=== PATIENT | female | born 1935 | race Caucasian/White ===

== ENCOUNTER 2017-01-08 17:51 | Inpatient (IN) | payer MEDICARE ==
[~2017-01-08] VITALS: Ht 149.9 cm; Wt 57.2 kg
[2017-01-08 19:50] VITALS: BP 132/43
[2017-01-08] MEDS ORDERED: IV 1/2 NORMAL SALINE 1,000 ML IV SCH (21:03)
[2017-01-08] MEDS ORDERED: TRIA1CAP PO (21:12)
[2017-01-08] MEDS ORDERED: TRIA10.8 NS (21:12)
[2017-01-08] MEDS ORDERED: BYSTOLIC5 MG PO (21:12)
[2017-01-08] MEDS ORDERED: PROAIR HFA8.5 GM INH (21:12)
[2017-01-08] MEDS ORDERED: LEVO50TA5 PO (21:12)
[2017-01-08] MEDS ORDERED: CETI10TA22 PO (21:12)
[2017-01-08] MEDS ORDERED: TRAM50TA PO (21:12)
[2017-01-08] MEDS ORDERED: TRAM100T2 PO (21:12)
[2017-01-08] MEDS ORDERED: GUAI600T38 PO (21:12)
[2017-01-08] MEDS ORDERED: BISACODYL 10 MG SUPP.RECT. PR PRN (21:15)
[2017-01-08] MEDS ORDERED: PROCHLORPERAZINE 10 MG/2 ML VIAL. IV PRN (21:15)
[2017-01-08] MEDS ORDERED: PROCHLORPERAZINE 25 MG SUPP.RECT. PR PRN (21:15)
[2017-01-08] MEDS ORDERED: CALCIUM CARBONATE 500 MG TAB.CHEW PO PRN (21:15)
[2017-01-08] MEDS ORDERED: ACETAMINOPHEN 325 MG TABLET. PO PRN (21:15)
[2017-01-08] MEDS ORDERED: MAG HYDROX/ALUMINUM HYD/SIMETH 30 ML ORAL.SUSP PO PRN (21:15)
[2017-01-08] MEDS ORDERED: MAGNESIUM HYDROXIDE 2,400 MG/30 ML ORAL.SUSP. PO PRN (21:15)
[2017-01-08] MEDS ORDERED: ENOXAPARIN 30 MG/0.3 ML SYRINGE. SQ SCH (22:00)
[2017-01-08] MEDS ORDERED: ENOXAPARIN 40 MG/0.4 ML SYRINGE. SQ SCH (22:00)
[2017-01-08] MEDS: ONDANSETRON PF 4 MG/2 ML VIAL. IV PRN (22:19)
[2017-01-08] MEDS: DOCUSATE SODIUM 100 MG CAPSULE. PO SCH (22:19)
[2017-01-08] MEDS: MORPHINE SULFATE 2 MG/ML DISP.SYRIN. IV PRN (22:21)
[2017-01-08 22:52] LABS: BILIRUBIN,URINE SMALL (NEG); GLUCOSE,URINE NEGATIVE (NEG); NITRITE,URINE NEGATIVE (NEG); PROTEIN,URINE NEGATIVE (NEG-TRACE)
[2017-01-08 22:56] LABS: BACTERIA,URINE 0 /HPF (0-FEW); SQUAMOUS EPITHELIAL CELL,UR MOD /LPF
[2017-01-08 22:57] VITALS: BP 131/53
[2017-01-09] MEDS ORDERED: SODI15DR4 OU
[2017-01-09] MEDS ORDERED: [UNRECOGNIZED DRUG - CODE] OU
[2017-01-09] MEDS ORDERED: PRED1DRO OU
[2017-01-09] MEDS ORDERED: CARB15DR65 OU
[2017-01-09] MEDS: OXYCODONE IR 5 MG TABLET. PO PRN ×3 (00:47→20:54)
[2017-01-09 03:31] VITALS: BP 111/53
[2017-01-09] MEDS: MORPHINE SULFATE 2 MG/ML DISP.SYRIN. IV PRN ×2 (03:53→09:07)
[2017-01-09 05:35] LABS: BASO % 0 % (0-3); EOS % 0 % (0-3); HEMATOCRIT 42.1 % (36.0-47.0); HEMOGLOBIN 13.8 g/dL (12.0-15.5); LYMPH # 2.2 x10^3/uL (1.0-4.8); LYMPH % 23 % (24-48); MEAN CORPUSCULAR HEMOGLOBIN 29 pg (25-35); MEAN CORPUSCULAR HGB CONC 33 g/dL (31-37); MEAN CORPUSCULAR VOLUME 88 fL (79-100); MONO % 11 % (0-9); NEUT % 65 % (31-73); PLATELET COUNT 316 x10^3/uL (140-400); RED BLOOD COUNT 4.81 x10^6/uL (3.50-5.40); RED CELL DISTRIBUTION WIDTH 14.2 % (11.5-14.5); WHITE BLOOD COUNT 9.6 x10^3/uL (4.0-11.0)
[2017-01-09 05:50] LABS: INR 1.2 (0.8-1.1); PROTHROMBIN TIME PATIENT 14.4 SEC (11.7-14.0)
[2017-01-09 07:00] VITALS: BP 114/48
--- NOTE | 2017-01-09 08:42 | PDOC ---
SURGICAL PROGRESS NOTE Subjective 81 yo F with pancreatic mass TO OR in AM for en bloc resection, given it's obstructive nature of the colon R/B/A d/w pt Thanks for consult! [id number] Vital Signs Vital Signs Date Time Temp Pulse Resp B/P Pulse Ox O2 Delivery O2 Flow Rate FiO2 01/09/17 07:00 96.6 83 18 114/48 96 Room Air 96.6 I&O Intake and Output 01/09/17 07:00 Intake Total 0 ml Output Total 425 ml Balance -425 ml Intake Oral 0 ml Output Urine Total 425 ml # Voids 2 Labs Laboratory Tests Test 01/08/17 22:30 01/09/17 05:00 Urine Collection Type Unknown Urine Color Yellow Urine Clarity Clear Urine pH 6.0 Urine Specific [place] >=1.030 Urine Protein Negativemg/dL (NEG-TRACE) Urine Glucose (UA) Negativemg/dL (NEG) Urine Ketones (Stick) 40mg/dL (NEG) Urine Blood Trace (NEG) Urine Nitrite Negative (NEG) Urine Bilirubin Small (NEG) Urine Urobilinogen Dipstick 1.0mg/dL (0.2 mg/dL) Urine Leukocyte Esterase Negative (NEG) Urine RBC 6-10/HPF (0-2) Urine WBC 1-4/HPF (0-4) Urine Squamous Epithelial Cells Mod/LPF Urine Bacteria 0/HPF (0-FEW) Urine Mucus Slight/LPF White Blood Count 9.6x10^3/uL (4.0-11.0) Red Blood Count 4.81x10^6/uL (3.50-5.40) Hemoglobin 13.8g/dL (12.0-15.5) Hematocrit 42.1% (36.0-47.0) Mean Corpuscular Volume 88fL (79-100) Mean Corpuscular Hemoglobin 29pg (25-35) Mean Corpuscular Hemoglobin Concent 33g/dL (31-37) Red Cell Distribution Width 14.2% (11.5-14.5) Platelet Count 316x10^3/uL (140-400) Neutrophils (%) (Auto) 65% (31-73) Lymphocytes (%) (Auto) 23% (24-48) Monocytes (%) (Auto) 11% (0-9) Eosinophils (%) (Auto) 0% (0-3) Basophils (%) (Auto) 0% (0-3) Neutrophils # (Auto) 6.3x10^3uL (1.8-7.7) Lymphocytes # (Auto) 2.2x10^3/uL (1.0-4.8) Monocytes # (Auto) 1.1x10^3/uL (0.0-1.1) Eosinophils # (Auto) 0.0x10^3/uL (0.0-0.7) Basophils # (Auto) 0.0x10^3/uL (0.0-0.2) Prothrombin Time 14.4SEC (11.7-14.0) Prothromb Time International Ratio 1.2 (0.8-1.1) Laboratory Tests Test 01/08/17 22:30 01/09/17 05:00 Urine Collection Type Unknown Urine Color Yellow Urine Clarity Clear Urine pH 6.0 Urine Specific [place] >=1.030 Urine Protein Negativemg/dL (NEG-TRACE) Urine Glucose (UA) Negativemg/dL (NEG) Urine Ketones (Stick) 40mg/dL (NEG) Urine Blood Trace (NEG) Urine Nitrite Negative (NEG) Urine Bilirubin Small (NEG) Urine Urobilinogen Dipstick 1.0mg/dL (0.2 mg/dL) Urine Leukocyte Esterase Negative (NEG) Urine RBC 6-10/HPF (0-2) Urine WBC 1-4/HPF (0-4) Urine Squamous Epithelial Cells Mod/LPF Urine Bacteria 0/HPF (0-FEW) Urine Mucus Slight/LPF White Blood Count 9.6x10^3/uL (4.0-11.0) Red Blood Count 4.81x10^6/uL (3.50-5.40) Hemoglobin 13.8g/dL (12.0-15.5) Hematocrit 42.1% (36.0-47.0) Mean Corpuscular Volume 88fL (79-100) Mean Corpuscular Hemoglobin 29pg (25-35) Mean Corpuscular Hemoglobin Concent 33g/dL (31-37) Red Cell Distribution Width 14.2% (11.5-14.5) Platelet Count 316x10^3/uL (140-400) Neutrophils (%) (Auto) 65% (31-73) Lymphocytes (%) (Auto) 23% (24-48) Monocytes (%) (Auto) 11% (0-9) Eosinophils (%) (Auto) 0% (0-3) Basophils (%) (Auto) 0% (0-3) Neutrophils # (Auto) 6.3x10^3uL (1.8-7.7) Lymphocytes # (Auto) 2.2x10^3/uL (1.0-4.8) Monocytes # (Auto) 1.1x10^3/uL (0.0-1.1) Eosinophils # (Auto) 0.0x10^3/uL (0.0-0.7) Basophils # (Auto) 0.0x10^3/uL (0.0-0.2) Prothrombin Time 14.4SEC (11.7-14.0) Prothromb Time International Ratio 1.2 (0.8-1.1) Problem List Problems Medical Problems: (1) Pancreatic mass Status: Acute Problems: JOSÉ MIGUEL VALERO MD Jan 09, 2017 08:42
[2017-01-09] MEDS ORDERED: CEFOXITIN 2GM IVPB FOR OMNI 100 ML IV SCH (08:45)
--- NOTE | 2017-01-09 08:56 | PDOC2 ---
GI CONSULT Reason For Consult: Pancreatic mass HPI: HPI: 81 y/o female transferred from [facility]. Has been feeling ill for >1 week w/ LUQ/ epigastric pain (now also in BLQ) and n/v. CT A/P showed LUQ mass originating in the pancreatic tail invading the spleen, stomach, and splenic flexure of the colon w/ associated obstruction. Single hepatic lesion also noted, possible metastasis. At [facility], Alk Phos 108, ALT 19, AST 18, bili 0.6. Dr. Jenkins has seen ; surgical resection is planned for tomorrow a.m. She has been having small stools and is passing gas. Recalls previous colonoscopy years ago which was incomplete; had a barium enema afterwards which was reportedly normal. PMH: PMH: HTN, allergic rhinitis, hypothyroidism, DJD, cataract extraction, tonsillectomy , cardiac cath, appendectomy. cholecystectomy, tubal ligation, C section, thyroid nodule removal FH: Family History: No pertinent hx Social History: Smoke: Quit ALCOHOL: none Drugs: None ROS: GEN: Denies fevers, chills, sweats HEENT: Denies blurred vision, sore throat CV: Denies chest pain RESP: Denies shortness of air, cough GI: Per HPI : Denies hematuria, dysuria ENDO: Denies weight changes NEURO: Denies confusion, dizziness MSK: Denies weakness, joint pain/swelling SKIN: Denies jaundice, pruritus VItals: Vitals: Vital Signs Date Time Temp Pulse Resp B/P Pulse Ox O2 Delivery O2 Flow Rate FiO2 01/09/17 07:00 96.6 83 18 114/48 96 Room Air 96.6 Labs: Labs: Laboratory Tests Test 01/08/17 22:30 01/09/17 05:00 Urine Collection Type Unknown Urine Color Yellow Urine Clarity Clear Urine pH 6.0 Urine Specific [place] >=1.030 Urine Protein Negativemg/dL (NEG-TRACE) Urine Glucose (UA) Negativemg/dL (NEG) Urine Ketones (Stick) 40mg/dL (NEG) Urine Blood Trace (NEG) Urine Nitrite Negative (NEG) Urine Bilirubin Small (NEG) Urine Urobilinogen Dipstick 1.0mg/dL (0.2 mg/dL) Urine Leukocyte Esterase Negative (NEG) Urine RBC 6-10/HPF (0-2) Urine WBC 1-4/HPF (0-4) Urine Squamous Epithelial Cells Mod/LPF Urine Bacteria 0/HPF (0-FEW) Urine Mucus Slight/LPF White Blood Count 9.6x10^3/uL (4.0-11.0) Red Blood Count 4.81x10^6/uL (3.50-5.40) Hemoglobin 13.8g/dL (12.0-15.5) Hematocrit 42.1% (36.0-47.0) Mean Corpuscular Volume 88fL (79-100) Mean Corpuscular Hemoglobin 29pg (25-35) Mean Corpuscular Hemoglobin Concent 33g/dL (31-37) Red Cell Distribution Width 14.2% (11.5-14.5) Platelet Count 316x10^3/uL (140-400) Neutrophils (%) (Auto) 65% (31-73) Lymphocytes (%) (Auto) 23% (24-48) Monocytes (%) (Auto) 11% (0-9) Eosinophils (%) (Auto) 0% (0-3) Basophils (%) (Auto) 0% (0-3) Neutrophils # (Auto) 6.3x10^3uL (1.8-7.7) Lymphocytes # (Auto) 2.2x10^3/uL (1.0-4.8) Monocytes # (Auto) 1.1x10^3/uL (0.0-1.1) Eosinophils # (Auto) 0.0x10^3/uL (0.0-0.7) Basophils # (Auto) 0.0x10^3/uL (0.0-0.2) Prothrombin Time 14.4SEC (11.7-14.0) Prothromb Time International Ratio 1.2 (0.8-1.1) Allergies: Coded Allergies: Xrbdygm-Xzs-Hpz Reductase Inhibitor (Verified Allergy, Intermediate, ) albuterol (Verified Allergy, Intermediate, 01/08/17) aspirin (Verified Allergy, Intermediate, 01/08/17) diltiazem (Verified Allergy, Intermediate, 01/08/17) ether (Verified Allergy, Intermediate, 01/08/17) ezetimibe (Verified Allergy, Intermediate, 01/08/17) fluticasone (Verified Allergy, Intermediate, 01/08/17) furosemide (Verified Allergy, Intermediate, 01/08/17) ipratropium (Verified Allergy, Intermediate, 01/08/17) lidocaine (Verified Allergy, Intermediate, 01/08/17) naproxen (Verified Allergy, Intermediate, 01/08/17) raloxifene (Verified Allergy, Intermediate, 01/08/17) salmeterol (Verified Allergy, Intermediate, 01/08/17) tiotropium (Verified Allergy, Intermediate, 01/08/17) tramadol (Verified Allergy, Intermediate, 01/08/17) trandolapril (Verified Allergy, Intermediate, 01/08/17) verapamil (Verified Allergy, Intermediate, 01/08/17) Sulfa (Sulfonamide Antibiotics) (Verified Allergy, Unknown, 01/08/17) alendronate sodium (Verified Allergy, Unknown, 01/08/17) calcium (Verified Allergy, Unknown, 01/08/17) celecoxib (Verified Allergy, Unknown, 01/08/17) estradiol (Verified Allergy, Unknown, 01/08/17) estrogens, conjugated (Verified Allergy, Unknown, 01/08/17) niacin (Verified Allergy, Unknown, 01/08/17) Medications: Current Medications Medications (Trade) Dose Ordered Sig/Chente Route PRN Reason Start Time Stop Time Status Last Admin Dose Admin Sodium Chloride (Iv Sodium Chloride 0.45%) 1,000 ml @ 80 mls/hr [id number] IV 01/08/17 21:03 01/08/17 22:17 Ondansetron HCl (Zofran) 4 mg PRN Q6HRS PRN IV NAUSEA/VOMITING 01/08/17 21:15 01/08/17 22:19 Oxycodone HCl (Roxicodone) 5 mg PRN Q3HRS PRN PO BREAKTHROUGH PAIN 01/08/17 21:15 01/09/17 00:47 Morphine Sulfate 1 mg PRN Q2HR PRN IV PAIN 01/08/17 21:15 01/09/17 03:53 Docusate Sodium (Colace) 100 mg BID PO 01/08/17 22:00 01/08/17 22:19 Enoxaparin Sodium (Lovenox 30mg Syringe) 30 mg Q24H SQ 01/08/17 22:00 01/08/17 22:20 Imaging: Imaging: Reviewed from [facility] - per HPI. PE: GEN: NAD HEENT: Atraumatic, PERRL LUNGS: CTAB anteriorly HEART: RRR ABD: BS+, some LUQ/epigastric discomfort, probably some distention EXTREMITY: No edema SKIN: No rashes, no jaundice NEURO/PSYCH: A & O 3 A/P: A/P: Abd pain w/ n/v Pancreatic mass -CT: LUQ mass originating in the pancreatic tail invading the spleen, stomach, and splenic flexure of the colon w/ associated obstruction, also note hepatic lesion -[id number] pending -- Plan for resection w/ Dr. Jenkins tomorrow RED Anderson Jan 09, 2017 08:56
[2017-01-09] MEDS: DOCUSATE SODIUM 100 MG CAPSULE. PO SCH ×2 (09:07→20:54)
[2017-01-09] MEDS: ONDANSETRON PF 4 MG/2 ML VIAL. IV PRN ×2 (09:07→15:51)
[2017-01-09] MEDS: PANTOPRAZOLE IV PUSH 40 MG VIAL. IVP SCH (09:08)
--- NOTE | 2017-01-09 09:25 | PDOC1 ---
History and Physical Date of Admission Date of Admission DATE: 01/09/17 TIME: 09:14 Identification/Chief Complaint Chief Complaint abd pain, nausea Source Source: Chart review, Patient History of Present Illness History of Present Illness Ms. Lee, is a 81 y/o female transferred from [place] [facility] last night. She has felt ill recenly, abd bloating and discomfort for almost a week, had seen primary care 4 days before, and symptoms had worsened, to ER last night. New LUQ/epigastric pain She was transferred when CT A/P showed LUQ mass of pancreas, to colon w/ associated obstruction. I discussed with Dr. Jenkins, he has consulted Palliative and Onc to follow. Past Medical History Cardiovascular: HTN Pulmonary: Asthma Family History Family History: No Significant Social History Smoke: No ALCOHOL: none Drugs: None Current Problem List Problem List Problems Medical Problems: (1) Pancreatic mass Status: Acute Problems: Current Medications Current Medications Current Medications Sodium Chloride (Iv Sodium Chloride 0.45%) 1,000 ml @ 80 mls/hr [id number] IV Last administered on 01/08/17 22:17; Start 01/08/17 at 21:03 Ondansetron HCl (Zofran) 4 mg PRN Q6HRS PRN IV NAUSEA/VOMITING Last administered on 01/09/17 09:07; Start 01/08/17 at 21:15 Prochlorperazine Edisylate (Compazine) 10 mg PRN Q6HRS PRN IV NAUSEA/VOMITING; Start 01/08/17 at 21:15 Prochlorperazine (Compazine) 25 mg PRN Q12HR PRN ID NAUSEA/VOMITING; Start 01/08 at 21:15 Al Hydroxide/Mg Hydroxide (Mylanta Plus Xs) 30 ml PRN Q3HRS PRN PO HEARTBURN / GAS; Start 01/08/17 at 21:15 Calcium Carbonate/ Glycine (Tums) 500 mg PRN Q3HRS PRN PO UPSET STOMACH; Start 01/08/17 at 21:15; Stop 01/08/17 at 21:20; Status DC Oxycodone HCl (Roxicodone) 5 mg PRN Q3HRS PRN PO BREAKTHROUGH PAIN Last administered on 01/09/17 00:47; Start 01/08/17 at 21:15 Morphine Sulfate 1 mg PRN Q2HR PRN IV PAIN Last administered on 01/09/17 09:07 ; Start 01/08/17 at 21:15 Acetaminophen (Tylenol) 650 mg PRN Q6HRS PRN PO MILD PAIN / TEMP; Start at 21:15 Docusate Sodium (Colace) 100 mg BID PO Last administered on 01/09/17 09:07; Start 01/08/17 at 22:00 Magnesium Hydroxide (Milk Of Magnesia) 2,400 mg PRN Q12HR PRN PO CONSTIPATION; Start 01/08/17 at 21:15 Bisacodyl (Dulcolax Supp) 10 mg PRN DAILY PRN ID CONSTIPATION; Start 01/08/17 at 21:15 Enoxaparin Sodium (Lovenox 40mg Syringe) 40 mg Q24H SQ ; Start 01/08/17 at 22:00 ; Stop 01/08/17 at 22:00; Status DC Pantoprazole Sodium (Protonix Vial) 40 mg DAILYAC IVP Last administered on 09:08; Start 01/09/17 at 07:30 Enoxaparin Sodium 30 mg 30 mg Q24H SQ Last administered on 01/08/17 22:20; Start 01/08/17 at 22:00 Cefoxitin Sodium (Mefoxin 2gm Ivpb For Omni) 100 ml @ 200 mls/hr 1X PERIOP IV ; Start 01/09/17 at 08:45 Active Scripts Active Reported Pred Forte (Prednisolone Acetate) 1 Ml Drops.susp 1 Ml OU BID PRN Visine Allergy Relief Drop (Tetrahydrozoline Hcl/Zn Sulf) 15 Ml Drops 1 Drop OU PRN Thera Tears (Carboxymethylcellulose Sodium) 15 Ml Drops 1 Drop OU PRN Jaime-128 (Sodium Chloride) 15 Ml Drops 1 Drop OU PRN Tramadol Hcl 100 Mg Tbmp.24hr 100 Mg PO Q6H PRN Tramadol Hcl 50 Mg Tablet 50 Mg PO Q6H PRN Zyrtec (Cetirizine Hcl) 10 Mg Tablet 10 Mg PO DAILY Nasacort (Triamcinolone Acetonide) 10.8 Ml [place] 2 [place] NS DAILY Proair Hfa Inhaler (Albuterol Sulfate) 8.5 Gm Hfa.aer.ad 2 Puff INH QID Mucinex (Guaifenesin) 600 Mg Tablet.er 600 Mg PO Q8HRS PRN Levothyroxine Sodium 50 Mcg Tablet 50 Mcg PO DAILYAC Dyazide 37.5-25 Capsule (Triamterene/Hydrochlorothiazid) 1 Each Capsule 1 Cap PO DAILY Bystolic (Nebivolol) 5 Mg Tablet 5 Mg PO DAILY Allergies Allergies: Coded Allergies: Tnfckab-Zgw-Ses Reductase Inhibitor (Verified Allergy, Intermediate, ) albuterol (Verified Allergy, Intermediate, 01/08/17) aspirin (Verified Allergy, Intermediate, 01/08/17) diltiazem (Verified Allergy, Intermediate, 01/08/17) ether (Verified Allergy, Intermediate, 01/08/17) ezetimibe (Verified Allergy, Intermediate, 01/08/17) fluticasone (Verified Allergy, Intermediate, 01/08/17) furosemide (Verified Allergy, Intermediate, 01/08/17) ipratropium (Verified Allergy, Intermediate, 01/08/17) lidocaine (Verified Allergy, Intermediate, 01/08/17) naproxen (Verified Allergy, Intermediate, 01/08/17) raloxifene (Verified Allergy, Intermediate, 01/08/17) salmeterol (Verified Allergy, Intermediate, 01/08/17) tiotropium (Verified Allergy, Intermediate, 01/08/17) tramadol (Verified Allergy, Intermediate, 01/08/17) trandolapril (Verified Allergy, Intermediate, 01/08/17) verapamil (Verified Allergy, Intermediate, 01/08/17) Sulfa (Sulfonamide Antibiotics) (Verified Allergy, Unknown, 01/08/17) alendronate sodium (Verified Allergy, Unknown, 01/08/17) calcium (Verified Allergy, Unknown, 01/08/17) celecoxib (Verified Allergy, Unknown, 01/08/17) estradiol (Verified Allergy, Unknown, 01/08/17) estrogens, conjugated (Verified Allergy, Unknown, 01/08/17) niacin (Verified Allergy, Unknown, 01/08/17) ROS General: YES: Appetite, Fatigue, No: Chills, Malaise, Night Sweats, Other PSYCHOLOGICAL ROS: No: Anxiety, Behavioral Disorder, Concentration difficultie , Decreased libido, Depression, Disorientation, Hallucinations, Hostility, Irritablity, Memory difficulties, Mood Swings, Obsessive thoughts, Other, Physical abuse, Sexual abuse, Sleep disturbances, Suicidal ideation Eyes: No Blurry vision, No Decreased vision, No Double vision, No Dry eyes, No Excessive tearing, No Eye Pain, No Itchy Eyes, No Loss of vision, No Other, No Photophobia, No Scotomata, No Uses contacts, No Uses glasses HEENT: No: Epistaxis, Heacaches, Hearing change, Nasal congestion, Nasal discharge, Oral lesions, Other, Sinus pain, Sneezing, Snoring, Sore Throat, Tinnitus, Vertigo, Visual Changes, Vocal changes Respiratory: No: Cough, Hemoptysis, Orthopnea, Other, Pleuritic Pain, SOB with excertion, Shortness of breath, Sputum Changes, Stridor, Tachypnea, Wheezing Cardiovascular: No Chest Pain, No Edema, No Lt Headedness, No Orthopnea, No Other, No Palpitations, No Paroxysmal Noc. Dyspnea Gastrointestinal: Yes Abdominal Pain, Yes Nausea, Yes Other (nonspecifc change in stool, smaller caliber) Genitourinary: No , No , No , No , No , No , No , No Discharge, No Dysuria, No Flank Pain, No Frequency, No Hematuria, No Incontinence, No Other, No Pain, No Retention, No Urgency Musculoskeletal: No Gait Disturbance, No Joint Pain, No Joint Stiffness, No Joint Swelling, No Muscle Pain, No Muscular Weakness, No Other, No Pain In:, No Swelling In: Neurological: No Behavorial Changes, No Bowel/Bladder ControlChng, No Confusion , No Dizziness, No Gait Disturbance, No Headaches, No Impaired Coord/balance, No Memory Loss, No Numbness/Tingling, No Other, No Seizures, No Speech Problems , No Tremors, No Visual Changes, No Weakness Skin: No Acne, No Dry Skin, No Eczema, No Hair Changes, No Lumps, No Mole Changes, No Mottling, No Nail Changes, No Other, No Pruritus, No Rash, No Skin Lesion Changes Physical Exam General: Alert, Cooperative, No acute distress HEENT: PERRLA, EOMI Lungs: Clear to auscultation, Normal air movement Heart: S1S2, no murmurs Abdomen: Normal bowel sounds, Soft (distended, bloated, mild TTP) Rectal Exam: not examined Extremities: No clubbing, No edema Skin: No significant lesion Neuro: Normal speech, Normal tone, Sensation intact Psych/Mental Status: Mental status NL, Mood NL Vitals Vitals Vital Signs Date Time Temp Pulse Resp B/P Pulse Ox O2 Delivery O2 Flow Rate FiO2 01/09/17 07:00 96.6 83 18 114/48 96 Room Air 96.6 Labs Labs Laboratory Tests Test 01/08/17 22:30 01/09/17 05:00 Urine Collection Type Unknown Urine Color Yellow Urine Clarity Clear Urine pH 6.0 Urine Specific [place] >=1.030 Urine Protein Negativemg/dL (NEG-TRACE) Urine Glucose (UA) Negativemg/dL (NEG) Urine Ketones (Stick) 40mg/dL (NEG) Urine Blood Trace (NEG) Urine Nitrite Negative (NEG) Urine Bilirubin Small (NEG) Urine Urobilinogen Dipstick 1.0mg/dL (0.2 mg/dL) Urine Leukocyte Esterase Negative (NEG) Urine RBC 6-10/HPF (0-2) Urine WBC 1-4/HPF (0-4) Urine Squamous Epithelial Cells Mod/LPF Urine Bacteria 0/HPF (0-FEW) Urine Mucus Slight/LPF White Blood Count 9.6x10^3/uL (4.0-11.0) Red Blood Count 4.81x10^6/uL (3.50-5.40) Hemoglobin 13.8g/dL (12.0-15.5) Hematocrit 42.1% (36.0-47.0) Mean Corpuscular Volume 88fL (79-100) Mean Corpuscular Hemoglobin 29pg (25-35) Mean Corpuscular Hemoglobin Concent 33g/dL (31-37) Red Cell Distribution Width 14.2% (11.5-14.5) Platelet Count 316x10^3/uL (140-400) Neutrophils (%) (Auto) 65% (31-73) Lymphocytes (%) (Auto) 23% (24-48) Monocytes (%) (Auto) 11% (0-9) Eosinophils (%) (Auto) 0% (0-3) Basophils (%) (Auto) 0% (0-3) Neutrophils # (Auto) 6.3x10^3uL (1.8-7.7) Lymphocytes # (Auto) 2.2x10^3/uL (1.0-4.8) Monocytes # (Auto) 1.1x10^3/uL (0.0-1.1) Eosinophils # (Auto) 0.0x10^3/uL (0.0-0.7) Basophils # (Auto) 0.0x10^3/uL (0.0-0.2) Prothrombin Time 14.4SEC (11.7-14.0) Prothromb Time International Ratio 1.2 (0.8-1.1) Laboratory Tests Test 01/08/17 22:30 01/09/17 05:00 Urine Collection Type Unknown Urine Color Yellow Urine Clarity Clear Urine pH 6.0 Urine Specific [place] >=1.030 Urine Protein Negativemg/dL (NEG-TRACE) Urine Glucose (UA) Negativemg/dL (NEG) Urine Ketones (Stick) 40mg/dL (NEG) Urine Blood Trace (NEG) Urine Nitrite Negative (NEG) Urine Bilirubin Small (NEG) Urine Urobilinogen Dipstick 1.0mg/dL (0.2 mg/dL) Urine Leukocyte Esterase Negative (NEG) Urine RBC 6-10/HPF (0-2) Urine WBC 1-4/HPF (0-4) Urine Squamous Epithelial Cells Mod/LPF Urine Bacteria 0/HPF (0-FEW) Urine Mucus Slight/LPF White Blood Count 9.6x10^3/uL (4.0-11.0) Red Blood Count 4.81x10^6/uL (3.50-5.40) Hemoglobin 13.8g/dL (12.0-15.5) Hematocrit 42.1% (36.0-47.0) Mean Corpuscular Volume 88fL (79-100) Mean Corpuscular Hemoglobin 29pg (25-35) Mean Corpuscular Hemoglobin Concent 33g/dL (31-37) Red Cell Distribution Width 14.2% (11.5-14.5) Platelet Count 316x10^3/uL (140-400) Neutrophils (%) (Auto) 65% (31-73) Lymphocytes (%) (Auto) 23% (24-48) Monocytes (%) (Auto) 11% (0-9) Eosinophils (%) (Auto) 0% (0-3) Basophils (%) (Auto) 0% (0-3) Neutrophils # (Auto) 6.3x10^3uL (1.8-7.7) Lymphocytes # (Auto) 2.2x10^3/uL (1.0-4.8) Monocytes # (Auto) 1.1x10^3/uL (0.0-1.1) Eosinophils # (Auto) 0.0x10^3/uL (0.0-0.7) Basophils # (Auto) 0.0x10^3/uL (0.0-0.2) Prothrombin Time 14.4SEC (11.7-14.0) Prothromb Time International Ratio 1.2 (0.8-1.1) VTE Prophylaxis Ordered VTE Prophylaxis Devices: Yes VTE Pharmacological Prophylaxi: No Assessment/Plan Assessment/Plan acute abd pain, nausea,. poor PO intake pancreatitc mass, likely pancreatic cancer admit, nutrition support. Gen surg consult, Would need aggressive resection as mass may be obs to colon. mild malnutrition, add PPN, clears now, admit DILCIA HONEYCUTT MD Jan 09, 2017 09:25
[2017-01-09] MEDS ORDERED: GUAIFENESIN ER 600 MG TABLET.ER PO PRN (09:30)
[2017-01-09] MEDS ORDERED: TRAMADOL 50 MG TABLET. PO PRN (09:30)
--- NOTE | 2017-01-09 09:56 | PDOC ---
Provider Note Provider Note Med Onc consult: Pancreatic mass causing colon obstruction. Agree with surgery See dictation # [id number] STEF COOPER MD Jan 09, 2017 09:56
[2017-01-09] MEDS ORDERED: ENOXAPARIN 30 MG/0.3 ML SYRINGE. SQ ONE (10:00)
[2017-01-09] MEDS ORDERED: ENOXAPARIN 30 MG/0.3 ML SYRINGE. SQ SCH (10:00)
[2017-01-09] MEDS: AA 4.25%/CALCIUM/LYTES/D5W 1,000 ML IV SCH (10:24)
[2017-01-09] MEDS: CETIRIZINE HCL 10 MG TABLET. PO SCH (10:27)
[2017-01-09] MEDS: LEVOTHYROXINE 50 MCG TABLET PO SCH (10:27)
[2017-01-09] MEDS: METOPROLOL TART IMMED RELEASE 25 MG TABLET. PO SCH ×2 (10:27→20:54)
[2017-01-09] MEDS ORDERED: FLUTICASONE 50MCG/NASAL SPRAY 16GM BOTTLE. NS SCH (10:30)
[2017-01-09 11:00] VITALS: BP 150/61
[2017-01-09] MEDS: ALBUTEROL SULFATE 2.5 MG/3 ML NEBU. NEB SCH ×3 (11:30→20:38)
--- NOTE | 2017-01-09 12:48 | RAD ---
CT chest without IV contrast History: Staging pancreatic cancer. Comparison: None. Technique: Helical CT of the chest was performed without intravenous contrast. Axial, sagittal, and coronal reconstructions were obtained. One or more of the following individualized dose reduction techniques were utilized for the study: Automated exposure control Adjustment of mA and/or kV according to patient's size Use of iterative reconstruction technique. Findings: The visualized thyroid is symmetric. No mediastinal lymphadenopathy is seen. Aortic atherosclerosis is noted. Coronary artery calcifications are seen. No pericardial thickening is seen. No cardiac chamber enlargement is identified. Mitral annular calcifications are seen. No pneumothorax or pleural effusion is identified. Posterior left upper lobe demonstrates 3 mm nonspecific soft tissue pulmonary nodule adjacent to the pleura (series 2 image 12). No pulmonary masses are identified. Images of the upper abdomen demonstrates irregular soft tissue mass in left upper quadrant adjacent to the pancreas, proximal ascending colon, spleen, and stomach. Visualized kidneys demonstrate mild residual excreted contrast in the renal collecting systems from IV contrast administered previous day. No suspicious osseous lesions are seen. Impression: 1. 3 mm nonspecific left upper lobe pulmonary nodule. Attention on follow-up imaging. 2. No definite metastatic disease identified in the chest.
[2017-01-09] MEDS ORDERED: NON FORMULARY ITEM (Albuterol Sulfate (Proair Hfa Inhaler) 2 PUFF) INH SCH (13:00)
--- NOTE | 2017-01-09 14:48 | RAD ---
Nuclear medicine whole body bone scan History: Staging pancreatic mass/cancer. Comparison: CT chest 01/09/2017 Technique: Examination performed after intravenous administration of 25.0 mCi Technetium 99m MDP. Planar images of the whole body were obtained in the anterior and posterior projections. Findings: Distribution of radiopharmaceutical appears physiologic. There is no evidence of osseous metastatic disease. Impression: No evidence of osseous metastases.
[2017-01-09 15:00] VITALS: BP 126/51
--- NOTE | 2017-01-09 16:58 | CONS ---
DATE OF CONSULTATION: 01/09/2017 REFERRING PHYSICIANS: Dr. Amada Smith, Dr. Roshan Dejesus, Ms. Merlyn Santoyo, Dr. Yvan Mckeon, Dr. Bret Perla. CHIEF COMPLAINT: Bloating, nausea, vomiting. DIAGNOSES: Distal pancreatic mass, local invasion of the spleen, posterior stomach and partial obstruction of the colon with suspected metastatic disease to the liver. PLANNED PROCEDURES: Distal pancreatectomy, splenectomy, partial gastrectomy, partial colectomy and liver biopsy. HISTORY OF PRESENT ILLNESS: This is a very pleasant 81-year-old female who has been very active until October of this year. She was working at [employer] up to this point, but began to not feel as well. She attributed this mainly to the stress secondary to bladder cancer with her , which was diagnosed in June. She retired in October this year, continued to feel overall poorly and does report 5-pound weight loss over the past few months. Over the past week or so, has been feeling worse. She has noted some previous back pain, but also developed bloating and recent nausea and vomiting. She has seen her primary care physician earlier this week and was felt to have a virus, but given the concern for persistent not feeling well, she was encouraged to proceed to the Emergency Room at [facility] yesterday. There, she was identified to have a pancreatic mass and was transferred to [place] for definitive care. She is seen in her hospital room. She reports very significant bloating and poor p.o. intake and nausea. ALLERGIES: SHE HAS MULTIPLE ALLERGIES INCLUDING STATINS, SULFA, ALBUTEROL, ALENDRONATE, ASPIRIN, CALCIUM, CELECOXIB, DILTIAZEM, ESTRADIOL, ESTROGEN, ETHER, FLUCONAZOLE, LASIX, LIDOCAINE. MEDICATIONS: Include albuterol, Zyrtec, eye drops, Mucinex, levothyroxine, Bystolic, tramadol. PAST MEDICAL HISTORY: Hypothyroidism, hypertension. PAST SURGICAL HISTORY: Includes hysterectomy, appendectomy, and cholecystectomy, partial thyroidectomy. SOCIAL HISTORY: No tobacco, no significant alcohol use. FAMILY HISTORY: Positive for alcoholism in her father; obesity and heart disease with early in her mother. REVIEW OF SYSTEMS: All systems reviewed and negative except for HPI. PHYSICAL EXAMINATION: GENERAL: Well-developed, well-nourished elderly female. No obvious distress. VITAL SIGNS: She is afebrile. Vital signs within normal limits. HEENT: Normocephalic, anicteric sclerae. Oropharynx clear. NECK: Supple. CHEST: Bilateral chest excursion. ABDOMEN: Soft, mildly distended, multiple surgical scars throughout, well healed. No masses, no hernias palpable, mild diffuse tenderness to palpation. EXTREMITIES: No clubbing, cyanosis or edema. LABORATORY DATA: White blood cell count is 9.6, INR is 1.2. Urinalysis demonstrates 40 ketones, trace blood. Her CT scan report and images are reviewed. She does have a mass in the distal pancreas, invasion of the spleen, stomach and partial obstruction of the colon. It was also concerning for liver mass in the left lobe of the liver. IMPRESSION AND RECOMMENDATIONS: A 81-year-old female with distal pancreatic mass concern for obstruction of the left colon. Given the obstructing aspect of the mass, I feel that urgent intervention is most appropriate and we will maximize her today and plan surgery tomorrow morning. In the meantime, we will have her maximized by the hospitalist and also like to consult palliative care for goals of care as well as Dr. Mckeon from oncology regarding additional evaluation and treatment options. Risks, benefits and alternatives are discussed with the patient, risks including but not limited to bleeding, infection, damage to surrounding structures, risk of anesthesia, risk of an open procedure, risk of anastomotic leak, pancreatic fistula. In addition, the ACS NSQIP calculator was used. Risk of serious complications is 25%, any complications is 27%, risk of is approximately 2.2% and the estimated hospital stay is 8.5 days. This was discussed with the patient. She appears to understand. Her insightful questions were answered and she agrees with current plan. Thank you for allowing my participation in the care of this pleasant patient. JOSÉ MIGUEL VALERO MD DR: GIL/jenna JOB#: [id number] / [id number] ROSHAN Martin Diane PROPECK, SCOTT MD RAJA, AMADA CHOE MD, MD
[2017-01-09 19:05] VITALS: BP 108/50
[2017-01-09 19:29] LABS: ALBUMIN/GLOBULIN RATIO 0.9 (1.0-1.7); CREATININE 0.6 mg/dL (0.6-1.0); GFR 96.4; MAGNESIUM 2.4 mg/dL (1.8-2.4); PHOSPHORUS 4.6 mg/dL (2.6-4.7); POTASSIUM 4.3 mmol/L (3.5-5.1); TOTAL BILIRUBIN 0.6 mg/dL (0.2-1.0); TOTAL PROTEIN 6.5 g/dL (6.4-8.2)
[2017-01-09 23:24] VITALS: BP 109/58
[2017-01-10] VITALS (27 sets, daily range): BP systolic 88–187; BP diastolic 36–86
[2017-01-10] MEDS: AA 4.25%/CALCIUM/LYTES/D5W 1,000 ML IV SCH ×2 (01:00→11:30)
--- NOTE | 2017-01-10 01:28 | CONS ---
DATE OF CONSULTATION: 01/09/2017 MEDICAL ONCOLOGY CONSULTATION CONSULTATION REQUESTED BY: Dr. Erik Jenkins. REASON FOR CONSULTATION: Pancreatic mass and liver metastasis. HISTORY OF PRESENT ILLNESS: The patient is a 81-year-old female who had symptoms of nausea, vomiting that lasted a week in 11/2016. The symptoms then resolved and she lost about 4 pounds at that time. Her symptoms recurred again on 01/01/2017. She contacted her primary care physician. Initially it was thought it may be food poisoning. However, she was also instructed to go to the Emergency Room if the symptoms did not resolve. She had persistent symptoms lasting a week and this prompted her to go to the Emergency Room at [facility] on 01/08/2017. She underwent CT scan of the abdomen and pelvis on 01/08/2017 that revealed mass involving the pancreatic tail, measuring 5 cm extending to the splenic hilum and also invading the stomach, splenic flexure of the colon causing colon obstruction. A small irregular hepatic lesion is also noted, which is concerning for a metastatic focus that is located in the anterior aspect of the left lobe of the liver measuring 18 mm. The patient reports that her appetite has been poor and lost about 8 pounds prior to admission. No fevers, chills or night sweats. She has also noticed abdominal discomfort and bloating, but no severe pain. She has also noted constipation during this period. She denies fevers, chills or night sweats. No hematemesis, melena, hematochezia. No hemoptysis or hematuria. She was evaluated by Dr. Erik Jenkins and in view of colon obstruction she is going to undergo surgery on 01/10/2017. I was asked to see the patient for further evaluation and recommendations regarding management of possible metastatic pancreatic cancer. PAST MEDICAL HISTORY: Hypertension, hypothyroidism. PAST SURGICAL HISTORY: Appendectomy, cholecystectomy, section, tonsillectomy, tubal ligation. FAMILY HISTORY: Father had laryngeal cancer. SOCIAL HISTORY: She has history of cigarette smoking in 1950 where she smoked less than a pack per week for 1 year. She quit smoking because it was causing abdominal discomfort. REVIEW OF SYSTEMS: A 14-point review of system was performed. Pertinent positives are mentioned in the history of present illness. Rest of the system review is negative. PHYSICAL EXAMINATION: GENERAL APPEARANCE: The patient is a 81-year-old female who is in no acute cardiorespiratory distress. VITAL SIGNS: Blood pressure is 140/48, temperature 96.6. HEENT: Atraumatic, normocephalic. Eyes: No icterus. NECK: Supple. CHEST: Bilaterally symmetrical. HEART: S1, S2 normal. ABDOMEN: Soft, distended, no obvious masses, no hepatosplenomegaly, no significant tenderness, guarding or rigidity. EXTREMITIES: No edema. CENTRAL NERVOUS SYSTEM: No focal deficits. LYMPHATICS: No lymphadenopathy. SKIN: No rashes. PSYCHOLOGIC: Mood and affect are appropriate. LABORATORY DATA: From 01/09/2017, WBC 9.6, hemoglobin 13.8, platelet count 316. Chemistry from 01/08/2017 revealed creatinine of 0.9, total bilirubin 0.6, AST 18, ALT 19, alkaline phosphatase 108, total protein 7.5, albumin 3.6, calcium 9.4. IMPRESSION AND PLAN: 1. Pancreatic mass measuring 5 cm involving the tail of the pancreas noted on the CAT scan of the abdomen and pelvis done on 01/08/2017 at [facility]. The mass is noted to be invading the spleen, stomach and splenic flexure of the colon with associated colonic obstruction. There was also evidence of an 18 mm lesion in the left lobe of the liver concerning for metastatic focus. I discussed in detail with the patient regarding the clinical impression of pancreatic cancer with metastasis to the liver. I also mentioned to her that the need for histologic diagnosis for confirmation. I also discussed in detail with Dr. Erik Jenkins and in view of colon obstruction caused by the mass, I agree to proceed with surgery which has been scheduled for 01/10/2017. After completion of surgery I will review the pathology results which would determine the final staging and then I will proceed with chemotherapy. I discussed in detail with the patient and she understands and agrees with the plan. 2. I will also obtain staging CT scan of the chest and bone scan and CA 19-9 level. 3. Liver metastasis per CT abdomen. I discussed with Dr. Erik Jenkins. Dr. Jenkins plans to resect this lesion or biopsy if resection is not possible. I discussed with Dr. Erik Jenkins and Dr. Kelli Chew. STEF COOPER MD DR: Mandy JOB#: [id number] / [id number] MICHELLE
[2017-01-10 05:47] LABS: BASO % 0 % (0-3); EOS % 1 % (0-3); HEMATOCRIT 40.3 % (36.0-47.0); HEMOGLOBIN 13.2 g/dL (12.0-15.5); LYMPH # 1.4 x10^3/uL (1.0-4.8); LYMPH % 18 % (24-48); MEAN CORPUSCULAR HEMOGLOBIN 29 pg (25-35); MEAN CORPUSCULAR HGB CONC 33 g/dL (31-37); MEAN CORPUSCULAR VOLUME 87 fL (79-100); MONO % 13 % (0-9); NEUT % 68 % (31-73); PLATELET COUNT 285 x10^3/uL (140-400); RED BLOOD COUNT 4.61 x10^6/uL (3.50-5.40); RED CELL DISTRIBUTION WIDTH 14.4 % (11.5-14.5); WHITE BLOOD COUNT 7.7 x10^3/uL (4.0-11.0)
[2017-01-10] MEDS: ALBUTEROL SULFATE 2.5 MG/3 ML NEBU. NEB SCH ×4 (07:14→19:35)
[2017-01-10] MEDS ORDERED: IV RINGERS,LACTATED 1000ML 1,000 ML IV SCH (07:28)
[2017-01-10] MEDS ORDERED: ONDANSETRON PF 4 MG/2 ML VIAL. IV PRN ×2 (07:30→13:45)
[2017-01-10] MEDS ORDERED: PROCHLORPERAZINE 10 MG/2 ML VIAL. IV PRN (07:30)
[2017-01-10] MEDS: LEVOTHYROXINE 50 MCG TABLET PO SCH (07:30)
[2017-01-10] MEDS ORDERED: FENTANYL PF 100 MCG/2 ML VIAL. IV PRN ×2 (07:30)
[2017-01-10] MEDS: FLUTICASONE 50MCG/NASAL SPRAY 16GM BOTTLE. NS SCH (08:24)
[2017-01-10] MEDS: DOCUSATE SODIUM 100 MG CAPSULE. PO SCH ×2 (08:24→21:00)
[2017-01-10] MEDS: METOPROLOL TART IMMED RELEASE 25 MG TABLET. PO SCH ×2 (08:24→21:00)
[2017-01-10] MEDS: CETIRIZINE HCL 10 MG TABLET. PO SCH (08:25)
[2017-01-10] MEDS: PANTOPRAZOLE IV PUSH 40 MG VIAL. IVP SCH (08:51)
[2017-01-10] MEDS: MORPHINE SULFATE 2 MG/ML DISP.SYRIN. IV PRN ×2 (08:51→17:41)
[2017-01-10] MEDS ORDERED: ROCURONIUM 50 MG/5 ML VIAL. ONE ×4 (09:03→21:30)
[2017-01-10] MEDS ORDERED: FENTANYL PF 100 MCG/2 ML VIAL. ONE (09:03)
[2017-01-10] MEDS ORDERED: DESFLURANE > 120 MINUTES IH ONE (09:03)
[2017-01-10] MEDS ORDERED: LIDOCAINE 2% 100 MG/5 ML SYRINGE. ONE (09:04)
[2017-01-10] MEDS ORDERED: DEXAMETHASONE SOD PHOS 20 MG/5 ML VIAL. ONE (09:04)
[2017-01-10] MEDS ORDERED: PROPOFOL 20 ML IV ONE (09:04)
[2017-01-10] MEDS ORDERED: ONDANSETRON PF 4 MG/2 ML VIAL. ONE (09:04)
[2017-01-10] MEDS ORDERED: PHENYLEPHRINE 10 MG/ML VIAL. ONE ×3 (09:27→12:55)
--- NOTE | 2017-01-10 09:33 | PDOC ---
SURGICAL PROGRESS NOTE Subjective Pre-Op Note 81 yo F with obstructing pancreatic mass TO OR for en bloc resection R/B/A d/w pt and pt's family bone scan negative Vital Signs Vital Signs Date Time Temp Pulse Resp B/P Pulse Ox O2 Delivery O2 Flow Rate FiO2 01/10/17 07:15 96 Room Air 01/10/17 07:00 98.1 90 20 125/74 98.1 I&O Intake and Output 01/10/17 07:00 Output Total 1200 ml Balance -1200 ml Output Urine Total 1200 ml # Voids 3 Labs Laboratory Tests Test 01/08/17 22:30 01/09/17 05:00 01/10/17 05:12 Urine Collection Type Unknown Urine Color Yellow Urine Clarity Clear Urine pH 6.0 Urine Specific [place] >=1.030 Urine Protein Negativemg/dL (NEG-TRACE) Urine Glucose (UA) Negativemg/dL (NEG) Urine Ketones (Stick) 40mg/dL (NEG) Urine Blood Trace (NEG) Urine Nitrite Negative (NEG) Urine Bilirubin Small (NEG) Urine Urobilinogen Dipstick 1.0mg/dL (0.2 mg/dL) Urine Leukocyte Esterase Negative (NEG) Urine RBC 6-10/HPF (0-2) Urine WBC 1-4/HPF (0-4) Urine Squamous Epithelial Cells Mod/LPF Urine Bacteria 0/HPF (0-FEW) Urine Mucus Slight/LPF White Blood Count 9.6x10^3/uL (4.0-11.0) 7.7x10^3/uL (4.0-11.0) Red Blood Count 4.81x10^6/uL (3.50-5.40) 4.61x10^6/uL (3.50-5.40) Hemoglobin 13.8g/dL (12.0-15.5) 13.2g/dL (12.0-15.5) Hematocrit 42.1% (36.0-47.0) 40.3% (36.0-47.0) Mean Corpuscular Volume 88fL (79-100) 87fL (79-100) Mean Corpuscular Hemoglobin 29pg (25-35) 29pg (25-35) Mean Corpuscular Hemoglobin Concent 33g/dL (31-37) 33g/dL (31-37) Red Cell Distribution Width 14.2% (11.5-14.5) 14.4% (11.5-14.5) Platelet Count 316x10^3/uL (140-400) 285x10^3/uL (140-400) Neutrophils (%) (Auto) 65% (31-73) 68% (31-73) Lymphocytes (%) (Auto) 23% (24-48) 18% (24-48) Monocytes (%) (Auto) 11% (0-9) 13% (0-9) Eosinophils (%) (Auto) 0% (0-3) 1% (0-3) Basophils (%) (Auto) 0% (0-3) 0% (0-3) Neutrophils # (Auto) 6.3x10^3uL (1.8-7.7) 5.2x10^3uL (1.8-7.7) Lymphocytes # (Auto) 2.2x10^3/uL (1.0-4.8) 1.4x10^3/uL (1.0-4.8) Monocytes # (Auto) 1.1x10^3/uL (0.0-1.1) 1.0x10^3/uL (0.0-1.1) Eosinophils # (Auto) 0.0x10^3/uL (0.0-0.7) 0.0x10^3/uL (0.0-0.7) Basophils # (Auto) 0.0x10^3/uL (0.0-0.2) 0.0x10^3/uL (0.0-0.2) Prothrombin Time 14.4SEC (11.7-14.0) Prothromb Time International Ratio 1.2 (0.8-1.1) Sodium Level 130mmol/L (136-145) Potassium Level 4.3mmol/L (3.5-5.1) Chloride Level 93mmol/L (98-107) Carbon Dioxide Level 24mmol/L (21-32) Anion Gap 13 (6-14) Blood Urea Nitrogen 20mg/dL (7-20) Creatinine 0.6mg/dL (0.6-1.0) Estimated GFR (Cockcroft-Gault) 96.4 BUN/Creatinine Ratio 33 (6-20) Glucose Level 63mg/dL (70-99) Calcium Level 9.0mg/dL (8.5-10.1) Phosphorus Level 4.6mg/dL (2.6-4.7) Magnesium Level 2.4mg/dL (1.8-2.4) Total Bilirubin 0.6mg/dL (0.2-1.0) Aspartate Amino Transf (AST/SGOT) 19U/L (15-37) Alanine Aminotransferase (ALT/SGPT) 18U/L (14-59) Alkaline Phosphatase 86U/L (46-116) Total Protein 6.5g/dL (6.4-8.2) Albumin 3.0g/dL (3.4-5.0) Albumin/Globulin Ratio 0.9 (1.0-1.7) Laboratory Tests Test 01/10/17 05:12 White Blood Count 7.7x10^3/uL (4.0-11.0) Red Blood Count 4.61x10^6/uL (3.50-5.40) Hemoglobin 13.2g/dL (12.0-15.5) Hematocrit 40.3% (36.0-47.0) Mean Corpuscular Volume 87fL (79-100) Mean Corpuscular Hemoglobin 29pg (25-35) Mean Corpuscular Hemoglobin Concent 33g/dL (31-37) Red Cell Distribution Width 14.4% (11.5-14.5) Platelet Count 285x10^3/uL (140-400) Neutrophils (%) (Auto) 68% (31-73) Lymphocytes (%) (Auto) 18% (24-48) Monocytes (%) (Auto) 13% (0-9) Eosinophils (%) (Auto) 1% (0-3) Basophils (%) (Auto) 0% (0-3) Neutrophils # (Auto) 5.2x10^3uL (1.8-7.7) Lymphocytes # (Auto) 1.4x10^3/uL (1.0-4.8) Monocytes # (Auto) 1.0x10^3/uL (0.0-1.1) Eosinophils # (Auto) 0.0x10^3/uL (0.0-0.7) Basophils # (Auto) 0.0x10^3/uL (0.0-0.2) Problem List Problems Medical Problems: (1) Pancreatic mass Status: Acute Problems: JOSÉ MIGUEL VALERO MD Jan 10, 2017 09:33
[2017-01-10] MEDS ORDERED: FENTANYL PF 250 MCG/5 ML VIAL. ONE (10:17)
[2017-01-10] MEDS ORDERED: SURGICEL HEMOSTAT 4X8 EACH. TP ONE ×2 (10:23→21:47)
[2017-01-10] MEDS ORDERED: ALBUMIN HUMAN 5% 500 ML IV ONE ×2 (11:32→12:14)
[2017-01-10] MEDS ORDERED: LORAZEPAM 2 MG/ML VIAL. ONE ×3 (11:38→20:59)
[2017-01-10] MEDS ORDERED: CEFOXITIN 2GM IVPB FOR OMNI. IV ONE (12:00)
[2017-01-10] MEDS ORDERED: SURGICEL HEMOSTAT 4X8 EACH. ONE ×3 (12:09→21:48)
[2017-01-10 12:14] LABS: HEMATOCRIT 19.9 % (36.0-47.0); HEMOGLOBIN 6.7 g/dL (12.0-15.5)
--- NOTE | 2017-01-10 12:57 | PDOC ---
PROGRESS NOTES Chief Complaint Chief Complaint 1. 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 Bowel obstruction, ileus 3. Acute anemia of blood loss from OR 4. MOd PCM 5. hyponatremia History of Present Illness History of Present Illness Out having pancreatic mass resection GI and GS on case Hgb 6 plus eugenie operatively To be transferred to ICU post OR Na 130 CA 19-9 pending Chart reviewed, likely malignancy Heme onc on case as well as palliative Plan: Await from OR Transfuse prBC NS for hyponat and ressucscuitation LAbs in AM No PE, no ROS Vitals Vitals Vital Signs Date Time Temp Pulse Resp B/P Pulse Ox O2 Delivery O2 Flow Rate FiO2 01/10/17 09:36 98.3 95 16 121/36 96 Room Air 98.3 Physical Exam General: Alert, Cooperative, No acute distress Abdomen: Normal bowel sounds, Soft (distended, bloated, mild TTP) Extremities: No clubbing, No edema Skin: No significant lesion Labs LABS Laboratory Tests Test 01/10/17 05:12 01/10/17 11:45 White Blood Count 7.7x10^3/uL (4.0-11.0) Red Blood Count 4.61x10^6/uL (3.50-5.40) Hemoglobin 13.2g/dL (12.0-15.5) 6.7g/dL (12.0-15.5) Hematocrit 40.3% (36.0-47.0) 19.9% (36.0-47.0) Mean Corpuscular Volume 87fL (79-100) Mean Corpuscular Hemoglobin 29pg (25-35) Mean Corpuscular Hemoglobin Concent 33g/dL (31-37) 34g/dL (31-37) Red Cell Distribution Width 14.4% (11.5-14.5) Platelet Count 285x10^3/uL (140-400) Neutrophils (%) (Auto) 68% (31-73) Lymphocytes (%) (Auto) 18% (24-48) Monocytes (%) (Auto) 13% (0-9) Eosinophils (%) (Auto) 1% (0-3) Basophils (%) (Auto) 0% (0-3) Neutrophils # (Auto) 5.2x10^3uL (1.8-7.7) Lymphocytes # (Auto) 1.4x10^3/uL (1.0-4.8) Monocytes # (Auto) 1.0x10^3/uL (0.0-1.1) Eosinophils # (Auto) 0.0x10^3/uL (0.0-0.7) Basophils # (Auto) 0.0x10^3/uL (0.0-0.2) Assessment and Plan Assessmemt and Plan Problems Medical Problems: (1) Pancreatic mass Status: Acute Problems: Comment Review of Relevant I have reviewed the following items [place] (where applicable) has been applied. Labs Laboratory Tests Test 01/08/17 22:30 01/09/17 05:00 01/10/17 05:12 01/10/17 11:45 Urine Collection Type Unknown Urine Color Yellow Urine Clarity Clear Urine pH 6.0 Urine Specific [place] >=1.030 Urine Protein Negativemg/dL (NEG-TRACE) Urine Glucose (UA) Negativemg/dL (NEG) Urine Ketones (Stick) 40mg/dL (NEG) Urine Blood Trace (NEG) Urine Nitrite Negative (NEG) Urine Bilirubin Small (NEG) Urine Urobilinogen Dipstick 1.0mg/dL (0.2 mg/dL) Urine Leukocyte Esterase Negative (NEG) Urine RBC 6-10/HPF (0-2) Urine WBC 1-4/HPF (0-4) Urine Squamous Epithelial Cells Mod/LPF Urine Bacteria 0/HPF (0-FEW) Urine Mucus Slight/LPF White Blood Count 9.6x10^3/uL (4.0-11.0) 7.7x10^3/uL (4.0-11.0) Red Blood Count 4.81x10^6/uL (3.50-5.40) 4.61x10^6/uL (3.50-5.40) Hemoglobin 13.8g/dL (12.0-15.5) 13.2g/dL (12.0-15.5) 6.7g/dL (12.0-15.5) Hematocrit 42.1% (36.0-47.0) 40.3% (36.0-47.0) 19.9% (36.0-47.0) Mean Corpuscular Volume 88fL (79-100) 87fL (79-100) Mean Corpuscular Hemoglobin 29pg (25-35) 29pg (25-35) Mean Corpuscular Hemoglobin Concent 33g/dL (31-37) 33g/dL (31-37) 34g/dL (31-37) Red Cell Distribution Width 14.2% (11.5-14.5) 14.4% (11.5-14.5) Platelet Count 316x10^3/uL (140-400) 285x10^3/uL (140-400) Neutrophils (%) (Auto) 65% (31-73) 68% (31-73) Lymphocytes (%) (Auto) 23% (24-48) 18% (24-48) Monocytes (%) (Auto) 11% (0-9) 13% (0-9) Eosinophils (%) (Auto) 0% (0-3) 1% (0-3) Basophils (%) (Auto) 0% (0-3) 0% (0-3) Neutrophils # (Auto) 6.3x10^3uL (1.8-7.7) 5.2x10^3uL (1.8-7.7) Lymphocytes # (Auto) 2.2x10^3/uL (1.0-4.8) 1.4x10^3/uL (1.0-4.8) Monocytes # (Auto) 1.1x10^3/uL (0.0-1.1) 1.0x10^3/uL (0.0-1.1) Eosinophils # (Auto) 0.0x10^3/uL (0.0-0.7) 0.0x10^3/uL (0.0-0.7) Basophils # (Auto) 0.0x10^3/uL (0.0-0.2) 0.0x10^3/uL (0.0-0.2) Prothrombin Time 14.4SEC (11.7-14.0) Prothromb Time International Ratio 1.2 (0.8-1.1) Sodium Level 130mmol/L (136-145) Potassium Level 4.3mmol/L (3.5-5.1) Chloride Level 93mmol/L (98-107) Carbon Dioxide Level 24mmol/L (21-32) Anion Gap 13 (6-14) Blood Urea Nitrogen 20mg/dL (7-20) Creatinine 0.6mg/dL (0.6-1.0) Estimated GFR (Cockcroft-Gault) 96.4 BUN/Creatinine Ratio 33 (6-20) Glucose Level 63mg/dL (70-99) Calcium Level 9.0mg/dL (8.5-10.1) Phosphorus Level 4.6mg/dL (2.6-4.7) Magnesium Level 2.4mg/dL (1.8-2.4) Total Bilirubin 0.6mg/dL (0.2-1.0) Aspartate Amino Transf (AST/SGOT) 19U/L (15-37) Alanine Aminotransferase (ALT/SGPT) 18U/L (14-59) Alkaline Phosphatase 86U/L (46-116) Total Protein 6.5g/dL (6.4-8.2) Albumin 3.0g/dL (3.4-5.0) Albumin/Globulin Ratio 0.9 (1.0-1.7) Laboratory Tests Test 01/10/17 05:12 01/10/17 11:45 White Blood Count 7.7x10^3/uL (4.0-11.0) Red Blood Count 4.61x10^6/uL (3.50-5.40) Hemoglobin 13.2g/dL (12.0-15.5) 6.7g/dL (12.0-15.5) Hematocrit 40.3% (36.0-47.0) 19.9% (36.0-47.0) Mean Corpuscular Volume 87fL (79-100) Mean Corpuscular Hemoglobin 29pg (25-35) Mean Corpuscular Hemoglobin Concent 33g/dL (31-37) 34g/dL (31-37) Red Cell Distribution Width 14.4% (11.5-14.5) Platelet Count 285x10^3/uL (140-400) Neutrophils (%) (Auto) 68% (31-73) Lymphocytes (%) (Auto) 18% (24-48) Monocytes (%) (Auto) 13% (0-9) Eosinophils (%) (Auto) 1% (0-3) Basophils (%) (Auto) 0% (0-3) Neutrophils # (Auto) 5.2x10^3uL (1.8-7.7) Lymphocytes # (Auto) 1.4x10^3/uL (1.0-4.8) Monocytes # (Auto) 1.0x10^3/uL (0.0-1.1) Eosinophils # (Auto) 0.0x10^3/uL (0.0-0.7) Basophils # (Auto) 0.0x10^3/uL (0.0-0.2) Medications Current Medications Sodium Chloride (Iv Sodium Chloride 0.45%) 1,000 ml @ 80 mls/hr [id number] IV Last administered on 01/08/17 22:17; Start 01/08/17 at 21:03; Stop 01/09/17 at 09: 23; Status DC Ondansetron HCl (Zofran) 4 mg PRN Q6HRS PRN IV NAUSEA/VOMITING Last administered on 01/09/17 15:51; Start 01/08/17 at 21:15 Prochlorperazine Edisylate (Compazine) 10 mg PRN Q6HRS PRN IV NAUSEA/VOMITING; Start 01/08/17 at 21:15 Prochlorperazine (Compazine) 25 mg PRN Q12HR PRN GA NAUSEA/VOMITING; Start 01/08 at 21:15 Al Hydroxide/Mg Hydroxide (Mylanta Plus Xs) 30 ml PRN Q3HRS PRN PO HEARTBURN / GAS; Start 01/08/17 at 21:15 Calcium Carbonate/ Glycine (Tums) 500 mg PRN Q3HRS PRN PO UPSET STOMACH; Start 01/08/17 at 21:15; Stop 01/08/17 at 21:20; Status DC Oxycodone HCl (Roxicodone) 5 mg PRN Q3HRS PRN PO BREAKTHROUGH PAIN Last administered on 01/09/17 20:54; Start 01/08/17 at 21:15 Morphine Sulfate 1 mg PRN Q2HR PRN IV PAIN Last administered on 01/10/17 08:51 ; Start 01/08/17 at 21:15 Acetaminophen (Tylenol) 650 mg PRN Q6HRS PRN PO MILD PAIN / TEMP; Start at 21:15 Docusate Sodium (Colace) 100 mg BID PO Last administered on 01/09/17 20:54; Start 01/08/17 at 22:00 Magnesium Hydroxide (Milk Of Magnesia) 2,400 mg PRN Q12HR PRN PO CONSTIPATION; Start 01/08/17 at 21:15 Bisacodyl (Dulcolax Supp) 10 mg PRN DAILY PRN GA CONSTIPATION; Start 01/08/17 at 21:15 Enoxaparin Sodium (Lovenox 40mg Syringe) 40 mg Q24H SQ ; Start 01/08/17 at 22:00 ; Stop 01/08/17 at 22:00; Status DC Pantoprazole Sodium (Protonix Vial) 40 mg DAILYAC IVP Last administered on 08:51; Start 01/09/17 at 07:30 Enoxaparin Sodium 30 mg 30 mg Q24H SQ Last administered on 01/08/17 22:20; Start 01/08/17 at 22:00; Stop 01/09/17 at 09:24; Status DC Cefoxitin Sodium (Mefoxin 2gm Ivpb For Omni) 100 ml @ 200 mls/hr 1X PERIOP IV ; Start 01/09/17 at 08:45; Stop 01/10/17 at 11:49; Status DC Cetirizine HCl (Zyrtec) 10 mg DAILY PO Last administered on 01/09/17 10:27; Start 01/09/17 at 10:30 Guaifenesin (Mucinex) 600 mg PRN Q8HRS PRN PO CONGESTION; Start 01/09/17 at 09: 30 Levothyroxine Sodium (Synthroid) 50 mcg DAILYAC PO Last administered on 10:27; Start 01/09/17 at 10:30 Tramadol HCl (Ultram) 50 mg PRN Q6HRS PRN PO PAIN; Start 01/09/17 at 09:30 Non-Formulary Medication 2 puff QID INH ; Start 01/09/17 at 13:00; Status UNV Metoprolol Tartrate (Lopressor) 25 mg BID PO Last administered on 01/09/17 20: 54; Start 01/09/17 at 10:30 Fluticasone Propionate 2 spray 2 spray DAILY NS Last administered on 01/09/17 10:28; Start 01/09/17 at 10:30; Stop 01/09/17 at 13:10; Status DC Amino Acids/ Electrolytes/ Dextrose (Clinimix E 4.25%-5% Solution) 1,000 ml @ 80 mls/hr [id number] IV Last administered on 01/10/17 01:00; Start 01/09/17 at 10: 30 Enoxaparin Sodium (Lovenox 30mg Syringe) 30 mg Q24H SQ ; Start 01/09/17 at 10:00 ; Stop 01/09/17 at 10:00; Status DC Enoxaparin Sodium (Lovenox 30mg Syringe) 30 mg 1X ONCE SQ ; Start 01/09/17 at 10 :00; Stop 01/09/17 at 10:00; Status DC Enoxaparin Sodium (Lovenox 30mg Syringe) 30 mg Q24H SQ ; Start 01/10/17 at 21:00 Albuterol Sulfate (Ventolin Neb Soln) 2.5 mg RTQID NEB Last administered on 01/10 07:14; Start 01/09/17 at 12:00 Fluticasone Propionate (Flonase) 2 spray DAILY NS ; Start 01/09/17 at 13:10 Ondansetron HCl (Zofran) 4 mg PRN Q6HRS PRN IV NAUSEA/VOMITING; Start 01/10/17 at 07:30; Stop 01/10/17 at 18:00 Fentanyl Citrate (Fentanyl 2ml Vial) 25 mcg PRN Q5MIN PRN IV MILD PAIN; Start 01/10/17 at 07:30; Stop 01/10/17 at 18:00 Fentanyl Citrate 50 mcg 50 mcg PRN Q5MIN PRN IV MODERATE PAIN; Start 01/10/17 at 07:30; Stop 01/10/17 at 18:00 Lactated Ringer's (Iv Lactated Ringers) 1,000 ml @ 30 mls/hr Q24H IV ; Start at 07:28; Stop 01/10/17 at 19:27 Prochlorperazine Edisylate (Compazine) 5 mg PACU PRN PRN IV NAUSEA, MRX1; Start 01/10/17 at 07:30; Stop 01/10/17 at 18:00 Desflurane (Suprane) 90 ml STK-MED ONCE IH ; Start 01/10/17 at 09:03; Stop at 09:04; Status DC Fentanyl Citrate (Fentanyl 2ml Vial) 100 mcg STK-MED ONCE .ROUTE ; Start at 09:03; Stop 01/10/17 at 09:04; Status DC Rocuronium [place] 50 mg 50 mg STK-MED ONCE .ROUTE ; Start 01/10/17 at 09:03; Stop 01/10/17 at 09:04; Status DC Propofol (Diprivan) 20 ml @ As Directed STK-MED ONCE IV ; Start 01/10/17 at 09:04 ; Stop 01/10/17 at 09:05; Status DC Ondansetron HCl (Zofran) 4 mg STK-MED ONCE .ROUTE ; Start 01/10/17 at 09:04; Stop 01/10/17 at 09:05; Status DC Dexamethasone Sodium Phosphate (Decadron) 20 mg STK-MED ONCE .ROUTE ; Start 01/10 at 09:04; Stop 01/10/17 at 09:05; Status DC Lidocaine HCl (Lidocaine HCl 2% Abboject) 100 mg STK-MED ONCE .ROUTE ; Start 01/10/17 at 09:04; Stop 01/10/17 at 09:05; Status DC Phenylephrine HCl (Rodrigue-Synephrine Inj) 10 mg STK-MED ONCE .ROUTE ; Start at 09:27; Stop 01/10/17 at 09:28; Status DC Fentanyl Citrate (Fentanyl 5ml Vial) 250 mcg STK-MED ONCE .ROUTE ; Start at 10:17; Stop 01/10/17 at 10:18; Status DC Rocuronium [place] 50 mg 50 mg STK-MED ONCE .ROUTE ; Start 01/10/17 at 10:26; Stop 01/10/17 at 10:27; Status DC Albumin Human (Plasmanate) 500 ml @ As Directed STK-MED ONCE IV ; Start at 11:32; Stop 01/10/17 at 11:33; Status DC Lorazepam (Ativan) 2 mg STK-MED ONCE .ROUTE ; Start 01/10/17 at 11:38; Stop at 11:39; Status DC Cellulose 1 each 1 each STK-MED ONCE .ROUTE Last administered on 01/10/17t 10:23 ; Start 01/10/17 at 12:09; Stop 01/10/17 at 12:10; Status DC Albumin Human (Plasmanate) 500 ml @ As Directed STK-MED ONCE IV ; Start at 12:14; Stop 01/10/17 at 12:15; Status DC Phenylephrine HCl (Rodrigue-Synephrine Inj) 10 mg STK-MED ONCE .ROUTE ; Start at 12:14; Stop 01/10/17 at 12:15; Status DC Cellulose 1 each STK-MED ONCE .ROUTE ; Start 01/10/17 at 12:46; Stop 01/10/17 at 12:47; Status DC Lorazepam (Ativan) 2 mg STK-MED ONCE .ROUTE ; Start 01/10/17 at 12:47; Stop at 12:48; Status DC Active Scripts Active Reported Pred Forte (Prednisolone Acetate) 1 Ml Drops.susp 1 Ml OU BID PRN Visine Allergy Relief Drop (Tetrahydrozoline Hcl/Zn Sulf) 15 Ml Drops 1 Drop OU PRN Thera Tears (Carboxymethylcellulose Sodium) 15 Ml Drops 1 Drop OU PRN Jaime-128 (Sodium Chloride) 15 Ml Drops 1 Drop OU PRN Tramadol Hcl 100 Mg Tbmp.24hr 100 Mg PO Q6H PRN Tramadol Hcl 50 Mg Tablet 50 Mg PO Q6H PRN Zyrtec (Cetirizine Hcl) 10 Mg Tablet 10 Mg PO DAILY Nasacort (Triamcinolone Acetonide) 10.8 Ml [place] 2 [place] NS DAILY Proair Hfa Inhaler (Albuterol Sulfate) 8.5 Gm Hfa.aer.ad 2 Puff INH QID Mucinex (Guaifenesin) 600 Mg Tablet.er 600 Mg PO Q8HRS PRN Levothyroxine Sodium 50 Mcg Tablet 50 Mcg PO DAILYAC Dyazide 37.5-25 Capsule (Triamterene/Hydrochlorothiazid) 1 Each Capsule 1 Cap PO DAILY Bystolic (Nebivolol) 5 Mg Tablet 5 Mg PO DAILY Vitals/I & O Vital Sign - Last 24 Hours 01/09/17 01/09/17 01/09/17 01/09/17 15:00 15:53 19:05 19:45 Temp 97.9 98.4 97.9 98.4 Pulse 78 86 Resp 16 18 B/P 126/51 108/50 Pulse Ox 95 94 O2 Delivery Room Air Room Air Room Air Room Air 01/09/17 01/09/17 01/09/17 01/09/17 20:38 20:54 20:54 21:54 Pulse 86 Resp 20 18 B/P 108/50 Pulse Ox 96 96 95 O2 Delivery Room Air Room Air Room Air 01/09/17 01/10/17 01/10/17 01/10/17 23:24 03:33 07:00 07:15 Temp 98.8 98.9 98.1 98.8 98.9 98.1 Pulse 89 85 90 Resp 18 18 20 B/P 109/58 118/60 125/74 Pulse Ox 95 95 96 96 O2 Delivery Room Air Room Air Room Air Room Air 01/10/17 09:36 Temp 98.3 98.3 Pulse 95 Resp 16 B/P 121/36 Pulse Ox 96 O2 Delivery Room Air Intake and Output 01/09/17 01/09/17 01/10/17 15:00 23:00 07:00 Output Total 300 ml 900 ml Balance -300 ml -900 ml THIERRY SAN MD Jan 10, 2017 12:57
[2017-01-10] MEDS ORDERED: VASOPRESSIN 20 UNIT/ML VIAL. ONE (12:58)
[2017-01-10] MEDS ORDERED: NOREPINEPHRINE BITARTRATE 4 MG/4 ML VIAL. IV ONE ×2 (13:00)
[2017-01-10 13:28] LABS: INR 5.9 (0.8-1.1); PARTIAL THROMBOPLASTIN TIME 61 SEC (24-38); PROTHROMBIN TIME PATIENT 49.6 SEC (11.7-14.0)
[2017-01-10] MEDS ORDERED: 0.9 % SODIUM CHLORIDE 10 ML DISP.SYRIN. IV PRN ×2 (13:45→22:30)
[2017-01-10 13:51] LABS: FIBRINOGEN < 60 mg/dL (200-440)
--- NOTE | 2017-01-10 14:02 | PDOC ---
BRIEF OPERATIVE NOTE Pre-Op Diagnosis Pancreatic mass, colon and stomach obstruction Post-Op Diagnosis same Procedure Performed Xlap, BENITA, partial colectomy, extended SBR, left nephrectomy, splenectomy, distal pancreatectomy, partial gastrectomy, liver biopsy x 2, temporary closure , diaphragm repair Surgeon Gregory Anesthesia Type: General Blood Loss 2000 IV Fluid several units of blood Specimens Obtained enbloc resection Findings obstructing tumor colon and stomach Complications DIC Additional Remarks [id number] JOSÉ MIGUEL VALERO MD Jan 10, 2017 14:02
--- NOTE | 2017-01-10 14:17 | PDOC ---
PROGRESS NOTES Subjective Subjective c/c -f/u of Pancreatic mass ROS - pt in ICU post-op Objective Objective Vital Signs Date Time Temp Pulse Resp B/P Pulse Ox O2 Delivery O2 Flow Rate FiO2 01/10/17 09:36 98.3 95 16 121/36 96 Room Air 98.3 Intake and Output 01/10/17 07:00 Output Total 1200 ml Balance -1200 ml Output Urine Total 1200 ml # Voids 3 Physical Exam Lungs: Other (on vent) Neuro: Other (on vent) Assessment Assessment Problems Medical Problems: (1) Pancreatic mass Status: Acute IMPRESSION AND PLAN: 1. Pancreatic mass measuring 5 cm involving the tail of the pancreas noted on the CAT scan of the abdomen and pelvis done on 01/08/2017 at [facility]. The mass is noted to be invading the spleen, stomach and splenic flexure of the colon with associated colonic obstruction. There was also evidence of an 18 mm lesion in the left lobe of the liver concerning for metastatic focus. I also discussed in detail with Dr. Erik Jenkins and in view of colon obstruction caused by the mass, I agree to proceed with surgery which was done 01/10/2017. All gross disease resected. f/u pathology. 2. CT scan of the chest 01/09/17 : 3 mm nonspecific left upper lobe pulmonary nodule. Attention on follow-up imaging. Bone scan 01/09/17 is neg. f/u CA 19-9 level. 3. Liver metastasis per CT abdomen. I discussed with Dr. Erik Jenkins. s/p resection of 2 lesions. I discussed with Dr. Erik Jenkins Comment Review of Relevant I have reviewed the following items [place] (where applicable) has been applied. Labs Laboratory Tests Test 01/08/17 22:30 01/09/17 05:00 01/10/17 05:12 01/10/17 11:45 Urine Collection Type Unknown Urine Color Yellow Urine Clarity Clear Urine pH 6.0 Urine Specific [place] >=1.030 Urine Protein Negativemg/dL (NEG-TRACE) Urine Glucose (UA) Negativemg/dL (NEG) Urine Ketones (Stick) 40mg/dL (NEG) Urine Blood Trace (NEG) Urine Nitrite Negative (NEG) Urine Bilirubin Small (NEG) Urine Urobilinogen Dipstick 1.0mg/dL (0.2 mg/dL) Urine Leukocyte Esterase Negative (NEG) Urine RBC 6-10/HPF (0-2) Urine WBC 1-4/HPF (0-4) Urine Squamous Epithelial Cells Mod/LPF Urine Bacteria 0/HPF (0-FEW) Urine Mucus Slight/LPF White Blood Count 9.6x10^3/uL (4.0-11.0) 7.7x10^3/uL (4.0-11.0) Red Blood Count 4.81x10^6/uL (3.50-5.40) 4.61x10^6/uL (3.50-5.40) Hemoglobin 13.8g/dL (12.0-15.5) 13.2g/dL (12.0-15.5) 6.7g/dL (12.0-15.5) Hematocrit 42.1% (36.0-47.0) 40.3% (36.0-47.0) 19.9% (36.0-47.0) Mean Corpuscular Volume 88fL (79-100) 87fL (79-100) Mean Corpuscular Hemoglobin 29pg (25-35) 29pg (25-35) Mean Corpuscular Hemoglobin Concent 33g/dL (31-37) 33g/dL (31-37) 34g/dL (31-37) Red Cell Distribution Width 14.2% (11.5-14.5) 14.4% (11.5-14.5) Platelet Count 316x10^3/uL (140-400) 285x10^3/uL (140-400) Neutrophils (%) (Auto) 65% (31-73) 68% (31-73) Lymphocytes (%) (Auto) 23% (24-48) 18% (24-48) Monocytes (%) (Auto) 11% (0-9) 13% (0-9) Eosinophils (%) (Auto) 0% (0-3) 1% (0-3) Basophils (%) (Auto) 0% (0-3) 0% (0-3) Neutrophils # (Auto) 6.3x10^3uL (1.8-7.7) 5.2x10^3uL (1.8-7.7) Lymphocytes # (Auto) 2.2x10^3/uL (1.0-4.8) 1.4x10^3/uL (1.0-4.8) Monocytes # (Auto) 1.1x10^3/uL (0.0-1.1) 1.0x10^3/uL (0.0-1.1) Eosinophils # (Auto) 0.0x10^3/uL (0.0-0.7) 0.0x10^3/uL (0.0-0.7) Basophils # (Auto) 0.0x10^3/uL (0.0-0.2) 0.0x10^3/uL (0.0-0.2) Prothrombin Time 14.4SEC (11.7-14.0) Prothromb Time International Ratio 1.2 (0.8-1.1) Sodium Level 130mmol/L (136-145) Potassium Level 4.3mmol/L (3.5-5.1) Chloride Level 93mmol/L (98-107) Carbon Dioxide Level 24mmol/L (21-32) Anion Gap 13 (6-14) Blood Urea Nitrogen 20mg/dL (7-20) Creatinine 0.6mg/dL (0.6-1.0) Estimated GFR (Cockcroft-Gault) 96.4 BUN/Creatinine Ratio 33 (6-20) Glucose Level 63mg/dL (70-99) Calcium Level 9.0mg/dL (8.5-10.1) Phosphorus Level 4.6mg/dL (2.6-4.7) Magnesium Level 2.4mg/dL (1.8-2.4) Total Bilirubin 0.6mg/dL (0.2-1.0) Aspartate Amino Transf (AST/SGOT) 19U/L (15-37) Alanine Aminotransferase (ALT/SGPT) 18U/L (14-59) Alkaline Phosphatase 86U/L (46-116) Total Protein 6.5g/dL (6.4-8.2) Albumin 3.0g/dL (3.4-5.0) Albumin/Globulin Ratio 0.9 (1.0-1.7) Test 01/10/17 13:00 Prothrombin Time 49.6SEC (11.7-14.0) Prothromb Time International Ratio 5.9 (0.8-1.1) Activated Partial Thromboplast Time 61SEC (24-38) Fibrinogen < 60mg/dL (200-440) Laboratory Tests Test 01/10/17 05:12 01/10/17 11:45 01/10/17 13:00 White Blood Count 7.7x10^3/uL (4.0-11.0) Red Blood Count 4.61x10^6/uL (3.50-5.40) Hemoglobin 13.2g/dL (12.0-15.5) 6.7g/dL (12.0-15.5) Hematocrit 40.3% (36.0-47.0) 19.9% (36.0-47.0) Mean Corpuscular Volume 87fL (79-100) Mean Corpuscular Hemoglobin 29pg (25-35) Mean Corpuscular Hemoglobin Concent 33g/dL (31-37) 34g/dL (31-37) Red Cell Distribution Width 14.4% (11.5-14.5) Platelet Count 285x10^3/uL (140-400) Neutrophils (%) (Auto) 68% (31-73) Lymphocytes (%) (Auto) 18% (24-48) Monocytes (%) (Auto) 13% (0-9) Eosinophils (%) (Auto) 1% (0-3) Basophils (%) (Auto) 0% (0-3) Neutrophils # (Auto) 5.2x10^3uL (1.8-7.7) Lymphocytes # (Auto) 1.4x10^3/uL (1.0-4.8) Monocytes # (Auto) 1.0x10^3/uL (0.0-1.1) Eosinophils # (Auto) 0.0x10^3/uL (0.0-0.7) Basophils # (Auto) 0.0x10^3/uL (0.0-0.2) Prothrombin Time 49.6SEC (11.7-14.0) Prothromb Time International Ratio 5.9 (0.8-1.1) Activated Partial Thromboplast Time 61SEC (24-38) Fibrinogen < 60mg/dL (200-440) Medications Current Medications Sodium Chloride (Iv Sodium Chloride 0.45%) 1,000 ml @ 80 mls/hr [id number] IV Last administered on 01/08/17 22:17; Start 01/08/17 at 21:03; Stop 01/09/17 at 09: 23; Status DC Ondansetron HCl (Zofran) 4 mg PRN Q6HRS PRN IV NAUSEA/VOMITING Last administered on 01/09/17 15:51; Start 01/08/17 at 21:15 Prochlorperazine Edisylate (Compazine) 10 mg PRN Q6HRS PRN IV NAUSEA/VOMITING; Start 01/08/17 at 21:15 Prochlorperazine (Compazine) 25 mg PRN Q12HR PRN HI NAUSEA/VOMITING; Start 01/08 at 21:15 Al Hydroxide/Mg Hydroxide (Mylanta Plus Xs) 30 ml PRN Q3HRS PRN PO HEARTBURN / GAS; Start 01/08/17 at 21:15 Calcium Carbonate/ Glycine (Tums) 500 mg PRN Q3HRS PRN PO UPSET STOMACH; Start 01/08/17 at 21:15; Stop 01/08/17 at 21:20; Status DC Oxycodone HCl (Roxicodone) 5 mg PRN Q3HRS PRN PO BREAKTHROUGH PAIN Last administered on 01/09/17 20:54; Start 01/08/17 at 21:15 Morphine Sulfate 1 mg PRN Q2HR PRN IV PAIN Last administered on 01/10/17 08:51 ; Start 01/08/17 at 21:15 Acetaminophen (Tylenol) 650 mg PRN Q6HRS PRN PO MILD PAIN / TEMP; Start at 21:15 Docusate Sodium (Colace) 100 mg BID PO Last administered on 01/09/17 20:54; Start 01/08/17 at 22:00 Magnesium Hydroxide (Milk Of Magnesia) 2,400 mg PRN Q12HR PRN PO CONSTIPATION; Start 01/08/17 at 21:15 Bisacodyl (Dulcolax Supp) 10 mg PRN DAILY PRN HI CONSTIPATION; Start 01/08/17 at 21:15 Enoxaparin Sodium (Lovenox 40mg Syringe) 40 mg Q24H SQ ; Start 01/08/17 at 22:00 ; Stop 01/08/17 at 22:00; Status DC Pantoprazole Sodium (Protonix Vial) 40 mg DAILYAC IVP Last administered on 08:51; Start 01/09/17 at 07:30 Enoxaparin Sodium 30 mg 30 mg Q24H SQ Last administered on 01/08/17 22:20; Start 01/08/17 at 22:00; Stop 01/09/17 at 09:24; Status DC Cefoxitin Sodium (Mefoxin 2gm Ivpb For Omni) 100 ml @ 200 mls/hr 1X PERIOP IV ; Start 01/09/17 at 08:45; Stop 01/10/17 at 11:49; Status DC Cetirizine HCl (Zyrtec) 10 mg DAILY PO Last administered on 01/09/17 10:27; Start 01/09/17 at 10:30 Guaifenesin (Mucinex) 600 mg PRN Q8HRS PRN PO CONGESTION; Start 01/09/17 at 09: 30 Levothyroxine Sodium (Synthroid) 50 mcg DAILYAC PO Last administered on 10:27; Start 01/09/17 at 10:30 Tramadol HCl (Ultram) 50 mg PRN Q6HRS PRN PO PAIN; Start 01/09/17 at 09:30 Non-Formulary Medication 2 puff QID INH ; Start 01/09/17 at 13:00; Status UNV Metoprolol Tartrate (Lopressor) 25 mg BID PO Last administered on 01/09/17 20: 54; Start 01/09/17 at 10:30 Fluticasone Propionate 2 spray 2 spray DAILY NS Last administered on 01/09/17 10:28; Start 01/09/17 at 10:30; Stop 01/09/17 at 13:10; Status DC Amino Acids/ Electrolytes/ Dextrose (Clinimix E 4.25%-5% Solution) 1,000 ml @ 80 mls/hr [id number] IV Last administered on 01/10/17 01:00; Start 01/09/17 at 10: 30 Enoxaparin Sodium (Lovenox 30mg Syringe) 30 mg Q24H SQ ; Start 01/09/17 at 10:00 ; Stop 01/09/17 at 10:00; Status DC Enoxaparin Sodium (Lovenox 30mg Syringe) 30 mg 1X ONCE SQ ; Start 01/09/17 at 10 :00; Stop 01/09/17 at 10:00; Status DC Enoxaparin Sodium (Lovenox 30mg Syringe) 30 mg Q24H SQ ; Start 01/10/17 at 21:00 Albuterol Sulfate (Ventolin Neb Soln) 2.5 mg RTQID NEB Last administered on 01/10t 07:14; Start 01/09/17 at 12:00 Fluticasone Propionate (Flonase) 2 spray DAILY NS ; Start 01/09/17 at 13:10 Ondansetron HCl (Zofran) 4 mg PRN Q6HRS PRN IV NAUSEA/VOMITING; Start 01/10/17 at 07:30; Stop 01/10/17 at 18:00 Fentanyl Citrate (Fentanyl 2ml Vial) 25 mcg PRN Q5MIN PRN IV MILD PAIN; Start 01/10/17 at 07:30; Stop 01/10/17 at 18:00 Fentanyl Citrate 50 mcg 50 mcg PRN Q5MIN PRN IV MODERATE PAIN; Start 01/10/17 at 07:30; Stop 01/10/17 at 18:00 Lactated Ringer's (Iv Lactated Ringers) 1,000 ml @ 30 mls/hr Q24H IV ; Start at 07:28; Stop 01/10/17 at 19:27 Prochlorperazine Edisylate (Compazine) 5 mg PACU PRN PRN IV NAUSEA, MRX1; Start 01/10/17 at 07:30; Stop 01/10/17 at 18:00 Desflurane (Suprane) 90 ml STK-MED ONCE IH ; Start 01/10/17 at 09:03; Stop at 09:04; Status DC Fentanyl Citrate (Fentanyl 2ml Vial) 100 mcg STK-MED ONCE .ROUTE ; Start at 09:03; Stop 01/10/17 at 09:04; Status DC Rocuronium [place] 50 mg 50 mg STK-MED ONCE .ROUTE ; Start 01/10/17 at 09:03; Stop 01/10/17 at 09:04; Status DC Propofol (Diprivan) 20 ml @ As Directed STK-MED ONCE IV ; Start 01/10/17 at 09:04 ; Stop 01/10/17 at 09:05; Status DC Ondansetron HCl (Zofran) 4 mg STK-MED ONCE .ROUTE ; Start 01/10/17 at 09:04; Stop 01/10/17 at 09:05; Status DC Dexamethasone Sodium Phosphate (Decadron) 20 mg STK-MED ONCE .ROUTE ; Start 01/10 at 09:04; Stop 01/10/17 at 09:05; Status DC Lidocaine HCl (Lidocaine HCl 2% Abboject) 100 mg STK-MED ONCE .ROUTE ; Start 01/10/17 at 09:04; Stop 01/10/17 at 09:05; Status DC Phenylephrine HCl (Rodrigue-Synephrine Inj) 10 mg STK-MED ONCE .ROUTE ; Start at 09:27; Stop 01/10/17 at 09:28; Status DC Fentanyl Citrate (Fentanyl 5ml Vial) 250 mcg STK-MED ONCE .ROUTE ; Start at 10:17; Stop 01/10/17 at 10:18; Status DC Rocuronium [place] 50 mg 50 mg STK-MED ONCE .ROUTE ; Start 01/10/17 at 10:26; Stop 01/10/17 at 10:27; Status DC Albumin Human (Plasmanate) 500 ml @ As Directed STK-MED ONCE IV ; Start at 11:32; Stop 01/10/17 at 11:33; Status DC Lorazepam (Ativan) 2 mg STK-MED ONCE .ROUTE ; Start 01/10/17 at 11:38; Stop at 11:39; Status DC Cellulose 1 each 1 each STK-MED ONCE .ROUTE Last administered on 01/10/17t 10:23 ; Start 01/10/17 at 12:09; Stop 01/10/17 at 12:10; Status DC Albumin Human (Plasmanate) 500 ml @ As Directed STK-MED ONCE IV ; Start at 12:14; Stop 01/10/17 at 12:15; Status DC Phenylephrine HCl (Rodrigue-Synephrine Inj) 10 mg STK-MED ONCE .ROUTE ; Start at 12:14; Stop 01/10/17 at 12:15; Status DC Cellulose 1 each STK-MED ONCE .ROUTE ; Start 01/10/17 at 12:46; Stop 01/10/17 at 12:47; Status DC Lorazepam (Ativan) 2 mg STK-MED ONCE .ROUTE ; Start 01/10/17 at 12:47; Stop at 12:48; Status DC Phenylephrine HCl (Rodrigue-Synephrine Inj) 10 mg STK-MED ONCE .ROUTE ; Start at 12:55; Stop 01/10/17 at 12:56; Status DC Vasopressin (Vasostrict) 20 unit STK-MED ONCE .ROUTE ; Start 01/10/17 at 12:58; Stop 01/10/17 at 12:59; Status DC Norepinephrine Bitartrate (Levophed Vial) 4 mg STK-MED ONCE IV ; Start 01/10/17 at 13:00; Stop 01/10/17 at 13:01; Status DC Norepinephrine Bitartrate (Levophed Vial) 4 mg STK-MED ONCE IV ; Start 01/10/17 at 13:00; Stop 01/10/17 at 13:01; Status DC Rocuronium [place] (Zemuron) 50 mg STK-MED ONCE .ROUTE ; Start 01/10/17 at 13:30 ; Stop 01/10/17 at 13:31; Status DC Famotidine (Pepcid) 20 mg QHS IVP ; Start 01/10/17 at 21:00 Sodium Chloride 3 ml 3 ml QSHIFT PRN IV AFTER MEDS AND BLOOD DRAWS; Start at 13:45 Lactated Ringer's (Iv Lactated Ringers) 1,000 ml @ 100 mls/hr Q10H IV ; Start 01/10/17 at 13:43 Morphine Sulfate 1 mg PRN Q1HR PRN IV PAIN; Start 01/10/17 at 13:45 Ondansetron HCl (Zofran) 4 mg PRN Q6HRS PRN IV NAUESA, 1ST CHOICE; Start at 13:45 Active Scripts Active Reported Pred Forte (Prednisolone Acetate) 1 Ml Drops.susp 1 Ml OU BID PRN Visine Allergy Relief Drop (Tetrahydrozoline Hcl/Zn Sulf) 15 Ml Drops 1 Drop OU PRN Thera Tears (Carboxymethylcellulose Sodium) 15 Ml Drops 1 Drop OU PRN Jaime-128 (Sodium Chloride) 15 Ml Drops 1 Drop OU PRN Tramadol Hcl 100 Mg Tbmp.24hr 100 Mg PO Q6H PRN Tramadol Hcl 50 Mg Tablet 50 Mg PO Q6H PRN Zyrtec (Cetirizine Hcl) 10 Mg Tablet 10 Mg PO DAILY Nasacort (Triamcinolone Acetonide) 10.8 Ml [place] 2 [place] NS DAILY Proair Hfa Inhaler (Albuterol Sulfate) 8.5 Gm Hfa.aer.ad 2 Puff INH QID Mucinex (Guaifenesin) 600 Mg Tablet.er 600 Mg PO Q8HRS PRN Levothyroxine Sodium 50 Mcg Tablet 50 Mcg PO DAILYAC Dyazide 37.5-25 Capsule (Triamterene/Hydrochlorothiazid) 1 Each Capsule 1 Cap PO DAILY Bystolic (Nebivolol) 5 Mg Tablet 5 Mg PO DAILY Vitals/I & O Vital Sign - Last 24 Hours 01/09/17 01/09/17 01/09/17 01/09/17 15:00 15:53 19:05 19:45 Temp 97.9 98.4 97.9 98.4 Pulse 78 86 Resp 16 18 B/P 126/51 108/50 Pulse Ox 95 94 O2 Delivery Room Air Room Air Room Air Room Air 01/09/17 01/09/17 01/09/17 01/09/17 20:38 20:54 20:54 21:54 Pulse 86 Resp 20 18 B/P 108/50 Pulse Ox 96 96 95 O2 Delivery Room Air Room Air Room Air 01/09/17 01/10/17 01/10/17 01/10/17 23:24 03:33 07:00 07:15 Temp 98.8 98.9 98.1 98.8 98.9 98.1 Pulse 89 85 90 Resp 18 18 20 B/P 109/58 118/60 125/74 Pulse Ox 95 95 96 96 O2 Delivery Room Air Room Air Room Air Room Air 01/10/17 09:36 Temp 98.3 98.3 Pulse 95 Resp 16 B/P 121/36 Pulse Ox 96 O2 Delivery Room Air Intake and Output 01/09/17 01/09/17 01/10/17 15:00 23:00 07:00 Output Total 300 ml 900 ml Balance -300 ml -900 ml STEF COOPER MD Jan 10, 2017 14:16
[2017-01-10 15:09] LABS: HEMATOCRIT 18.4 % (36.0-47.0)
[2017-01-10 15:23] LABS: CALCIUM 6.7 mg/dL (8.5-10.1); CREATININE 1.2 mg/dL (0.6-1.0); GFR 43.3; POTASSIUM 4.5 mmol/L (3.5-5.1)
[2017-01-10 15:27] LABS: HCO3 ABG 19 mmol/L (21-28); PCO2 ABG 27 mmHg (35-46); PH ABG 7.48 (7.35-7.45); PO2 ABG 450 mmHg (65-108); SAT O2 ABG 99 % (92-99)
[2017-01-10 15:30] LABS: FIO2 ABG 100
--- NOTE | 2017-01-10 16:13 | RAD ---
Portable AP supine view CXR: Clinical indications: Central line and ET tube placement.. Findings: ET tube tip is located at the level of the mckenna. Therefore, it may be pulled back 2 cm. NG tube is in place and the tip is seen within the distal body of the stomach. Right IJ central line is in place and the tip is seen within the right atrium. No acute lung infiltrate or pleural effusion or pulmonary edema or lung mass or pneumothorax is seen. The heart size, pulmonary vasculature, mediastinum and both yobany are unremarkable. Impression: ET tube is located at the level of the mckenna. Therefore, it may be pulled back x 2 cm. Right IJ tip is located within the right atrium. No pneumothorax is seen. 2 radiopaque rectangular foreign bodies are projected over the left upper quadrant of the abdomen..
--- NOTE | 2017-01-10 18:47 | OP ---
DATE OF SURGERY: 01/10/2017 REFERRING PHYSICIANS: Dr. Bret Perla, Dr. Yvan Mckeon, Dr. Amada Smith, and Dr. Roshan Dejesus. PREOPERATIVE DIAGNOSIS: Metastatic pancreatic mass, favoring pancreatic cancer with obstruction of the colon and possibly the stomach. POSTOPERATIVE DIAGNOSIS: Metastatic pancreatic mass, favoring pancreatic cancer with obstruction of the colon and possibly the stomach. PROCEDURE: Exploratory laparotomy, extensive lysis of adhesions, partial colectomy, extended small-bowel resection, left nephrectomy, splenectomy, distal pancreatectomy, partial gastrectomy, temporary closure, and liver biopsy x 2. SURGEON: Erik Jenkins MD ESTIMATED BLOOD LOSS: 2000 mL. FLUIDS: Several units of blood. Please see anesthetic record for details. FINDINGS: Local invasion of distal pancreatic mass in the spleen, left kidney, and splenic flexure of the colon with resultant ischemia of the majority of the small bowel. INDICATIONS: A 81-year-old female, who presents with a several-month history of abdominal pain and bloating. Imaging is concerning for metastatic pancreatic mass with obstruction of the left colon and invasion in the stomach. It was felt that the patient would best be served by palliative resection given the impending obstruction. The patient and the patient's family are extensively informed of the risks, benefits, and alternatives of the procedure with risks including, but not limited to bleeding infections. The patient was informed of risks of anesthesia, need for an extended surgery, certainly the issue that this more than likely would not be curative but palliative primarily. In addition, an urgent surgery is indicated given the concern for obstruction of both stomach and the colon. The patient and the patient's family appeared to understand, their entire questions were answered, and they agreed to proceed. PROCEDURE: After obtaining informed consent, the patient was taken to the operative room, induced general anesthesia. The patient was prepped and draped in the usual fashion of the anterior abdominal wall. A generous midline incision was made using electrocautery and subcutaneous tissue was divided with electrocautery and the fascia was divided in the midline. There was a very small umbilical hernia with no evidence of peritoneal disease in this area. An extensive surgery was subsequently performed. The liver had 2 suspicious lesions from metastatic disease - one in the very left edge of the liver. It was resected using Impact LigaSure. An additional one was noted on the falciform ligament. Gallbladder was surgically absent. The stomach was very bloated. Small bowel was very diffusely distended, and unfortunately, during the procedure, it was noted to become ischemic, especially the distal portion. Due to the extent of adhesions, an extensive lysis of adhesions was performed. The right colon was noted to be very distended, as well as the transverse colon coming to an obstruction. Near the splenic flexure, the spleen was involved as well. The mass appeared to be in the distal tail of the pancreas. Consideration was given for palliation with diverting ostomy; however, given the mass location and invasion in the stomach, it was felt the patient will thus be served by attempted resection for palliation. The spleen was mobilized to the midline dividing attachments laterally. There was a small invasion of the diaphragm on the lateral aspect. This was included in the specimen. This did require a laceration of the diaphragm, which was repaired then using continuous looped PDS stitch. No injury to the underlying lung. The lesser sac was entered using Impact LigaSure. Greater curvature was taken down using Impact LigaSure. There was local invasion of the stomach posteriorly. A gentle load KAYLA stapler was used to divide the stomach in a partial gastrectomy, including the stomach. The stomach line was then oversewn using continuous 3-0 PDS. The left side of the colon was also mobilized. It was very distended with this mass. The small bowel was divided just proximal to the ileocecal valve using gentle load KAYLA stapler. There were extensive adhesions in the pelvis secondary to hysterectomy and the uterus was surgically absent. The right colon was mobilized in the midline. Mesentery was taken using Impact LigaSure. Ultimately, this allowed en-bloc resection. The pancreas was divided proximally 50% of it using gentle load KAYLA stapler. The mass appeared to be also invading into the anterior surface of the kidney, which was scraped off the anterior surface of the kidney using electrocautery, the mass was resected and passed off and then sent to Pathology for evaluation. At this point, the small bowel was evaluated and found to be extremely ischemic in the majority. This was subsequently resected. Unfortunately, only approximately 45 cm of proximal small bowel was viable. It was resected using a gentle load KAYLA stapler. Mesentery was taken using Impact LigaSure, and the specimen was passed off the field and sent to Pathology for evaluation. The anterior portion of the kidney had some bleeding. It was very fragile in nature. Attempt at controlling this with electrocautery, sutures, and Surgicel were unsuccessful. Subsequently, it was felt that the patient will best be served by left nephrectomy for this. The renal vein and the renal artery were ligated using 0-Vicryl, free-ties, and metal clip. Ureter was divided using 0-Vicryl and metal clip. The specimen was passed off and then to Pathology for evaluation. At this point, the patient was noted to have diffuse surface bleeding. Attempts at controlling this with electrocautery and other mechanism was ultimately futile and it was noted to be slow bleeding from all surfaces. At this point, in discussion with Anesthesia, it was felt that the patient must be packed and FFP given and ICU monitoring. She will return to the operating room tomorrow or later in the day if needed. The abdominal cavity was then packed using 26 laps. The skin was re-approximated loosely using continuous 2-0 Ethilon. Extensive dressing was placed over this. The patient was noted to be reasonably stable at this point with good heart rate and blood pressure and minimal pressors. She will be transferred to the ICU in a critical manner. This was extensively discussed with the patient's and son. They indicate that they would like to continue with aggressive interventions, but the patient has requested that she is kept alive artificially with technology and would now wish to proceed with this. As such, we will continue with aggressive care at this time, but we will be mindful of the patient's family's wishes. Thank you for allowing participation in the care of this pleasant patient. ERIK JENKINS MD DR: GIL/jenna JOB#: [id number] / [id number] ROSHAN Martin SCOTT MD RAJA, VINAY MD TERMULO, CHERRIE MD MTDD
[2017-01-10 19:40] LABS: BASO % 0 % (0-3); EOS % 0 % (0-3); HEMATOCRIT 23.6 % (36.0-47.0); LYMPH # 0.2 x10^3/uL (1.0-4.8); LYMPH % 4 % (24-48); MEAN CORPUSCULAR HEMOGLOBIN 28 pg (25-35); MEAN CORPUSCULAR HGB CONC 34 g/dL (31-37); MEAN CORPUSCULAR VOLUME 84 fL (79-100); MONO % 7 % (0-9); NEUT % 89 % (31-73); PLATELET COUNT 210 x10^3/uL (140-400); RED BLOOD COUNT 2.82 x10^6/uL (3.50-5.40); RED CELL DISTRIBUTION WIDTH 14.4 % (11.5-14.5); WHITE BLOOD COUNT 5.5 x10^3/uL (4.0-11.0)
[2017-01-10 19:51] LABS: INR 1.2 (0.8-1.1); PROTHROMBIN TIME PATIENT 14.9 SEC (11.7-14.0)
[2017-01-10 20:27] LABS: PLT ESTIMATE ADEQUATE (ADEQUATE)
--- NOTE | 2017-01-10 20:55 | PDOC ---
SURGICAL PROGRESS NOTE Subjective Pre-Op Note 81 yo F with obstructing pancreatic mass, underwent palliative resection earlier today. Developed coagulopathy during surgery. Damage control surgery performed with rapid, temporary closure with packing of the abdomen. Patient is now warm, with much improved coagulopathy labs. She is responsive to painful stimuli. Vitals reasonably stable, but has developed tachycardia and sanguinous drainage from drains. Planned return to the OR for bleeding control , ileostomy maturation, removal of packing, and abd wall closure is indicated. Previously discussed with patient's family and consent obtained over the phone. Vital Signs Vital Signs Date Time Temp Pulse Resp B/P Pulse Ox O2 Delivery O2 Flow Rate FiO2 01/10/17 20:00 Mechanical Ventilator 01/10/17 19:27 100 01/10/17 18:45 97.6 100 14 160/64 97.6 I&O Intake and Output 01/10/17 07:00 Output Total 1200 ml Balance -1200 ml Output Urine Total 1200 ml # Voids 3 Labs Laboratory Tests Test 01/08/17 22:30 01/09/17 05:00 01/10/17 05:12 01/10/17 11:45 Urine Collection Type Unknown Urine Color Yellow Urine Clarity Clear Urine pH 6.0 Urine Specific [place] >=1.030 Urine Protein Negativemg/dL (NEG-TRACE) Urine Glucose (UA) Negativemg/dL (NEG) Urine Ketones (Stick) 40mg/dL (NEG) Urine Blood Trace (NEG) Urine Nitrite Negative (NEG) Urine Bilirubin Small (NEG) Urine Urobilinogen Dipstick 1.0mg/dL (0.2 mg/dL) Urine Leukocyte Esterase Negative (NEG) Urine RBC 6-10/HPF (0-2) Urine WBC 1-4/HPF (0-4) Urine Squamous Epithelial Cells Mod/LPF Urine Bacteria 0/HPF (0-FEW) Urine Mucus Slight/LPF White Blood Count 9.6x10^3/uL (4.0-11.0) 7.7x10^3/uL (4.0-11.0) Red Blood Count 4.81x10^6/uL (3.50-5.40) 4.61x10^6/uL (3.50-5.40) Hemoglobin 13.8g/dL (12.0-15.5) 13.2g/dL (12.0-15.5) 6.7g/dL (12.0-15.5) Hematocrit 42.1% (36.0-47.0) 40.3% (36.0-47.0) 19.9% (36.0-47.0) Mean Corpuscular Volume 88fL (79-100) 87fL (79-100) Mean Corpuscular Hemoglobin 29pg (25-35) 29pg (25-35) Mean Corpuscular Hemoglobin Concent 33g/dL (31-37) 33g/dL (31-37) 34g/dL (31-37) Red Cell Distribution Width 14.2% (11.5-14.5) 14.4% (11.5-14.5) Platelet Count 316x10^3/uL (140-400) 285x10^3/uL (140-400) Neutrophils (%) (Auto) 65% (31-73) 68% (31-73) Lymphocytes (%) (Auto) 23% (24-48) 18% (24-48) Monocytes (%) (Auto) 11% (0-9) 13% (0-9) Eosinophils (%) (Auto) 0% (0-3) 1% (0-3) Basophils (%) (Auto) 0% (0-3) 0% (0-3) Neutrophils # (Auto) 6.3x10^3uL (1.8-7.7) 5.2x10^3uL (1.8-7.7) Lymphocytes # (Auto) 2.2x10^3/uL (1.0-4.8) 1.4x10^3/uL (1.0-4.8) Monocytes # (Auto) 1.1x10^3/uL (0.0-1.1) 1.0x10^3/uL (0.0-1.1) Eosinophils # (Auto) 0.0x10^3/uL (0.0-0.7) 0.0x10^3/uL (0.0-0.7) Basophils # (Auto) 0.0x10^3/uL (0.0-0.2) 0.0x10^3/uL (0.0-0.2) Prothrombin Time 14.4SEC (11.7-14.0) Prothromb Time International Ratio 1.2 (0.8-1.1) Sodium Level 130mmol/L (136-145) Potassium Level 4.3mmol/L (3.5-5.1) Chloride Level 93mmol/L (98-107) Carbon Dioxide Level 24mmol/L (21-32) Anion Gap 13 (6-14) Blood Urea Nitrogen 20mg/dL (7-20) Creatinine 0.6mg/dL (0.6-1.0) Estimated GFR (Cockcroft-Gault) 96.4 BUN/Creatinine Ratio 33 (6-20) Glucose Level 63mg/dL (70-99) Calcium Level 9.0mg/dL (8.5-10.1) Phosphorus Level 4.6mg/dL (2.6-4.7) Magnesium Level 2.4mg/dL (1.8-2.4) Total Bilirubin 0.6mg/dL (0.2-1.0) Aspartate Amino Transf (AST/SGOT) 19U/L (15-37) Alanine Aminotransferase (ALT/SGPT) 18U/L (14-59) Alkaline Phosphatase 86U/L (46-116) Total Protein 6.5g/dL (6.4-8.2) Albumin 3.0g/dL (3.4-5.0) Albumin/Globulin Ratio 0.9 (1.0-1.7) Test 01/10/17 13:00 01/10/17 14:57 01/10/17 15:15 01/10/17 15:52 Prothrombin Time 49.6SEC (11.7-14.0) Prothromb Time International Ratio 5.9 (0.8-1.1) Activated Partial Thromboplast Time 61SEC (24-38) Fibrinogen < 60mg/dL (200-440) Hematocrit 18.4% (36.0-47.0) Platelet Count 20x10^3/uL (140-400) Sodium Level 134mmol/L (136-145) Potassium Level 4.5mmol/L (3.5-5.1) Chloride Level 105mmol/L (98-107) Carbon Dioxide Level 22mmol/L (21-32) Anion Gap 7 (6-14) Blood Urea Nitrogen 20mg/dL (7-20) Creatinine 1.2mg/dL (0.6-1.0) Estimated GFR (Cockcroft-Gault) 43.3 Glucose Level 318mg/dL (70-99) Calcium Level 6.7mg/dL (8.5-10.1) O2 Saturation 99% (92-99) Arterial Blood pH 7.48 (7.35-7.45) Arterial Blood pCO2 at Patient Temp 27mmHg (35-46) Arterial Blood pO2 at Patient Temp 450mmHg (65-108) Arterial Blood HCO3 19mmol/L (21-28) Arterial Blood Base Excess -4mmol/L (-3-3) FiO2 100 Lactic Acid Level 2.8mmol/L (0.4-2.0) Test 01/10/17 19:25 White Blood Count 5.5x10^3/uL (4.0-11.0) Red Blood Count 2.82x10^6/uL (3.50-5.40) Hemoglobin 8.0g/dL (12.0-15.5) Hematocrit 23.6% (36.0-47.0) Mean Corpuscular Volume 84fL (79-100) Mean Corpuscular Hemoglobin 28pg (25-35) Mean Corpuscular Hemoglobin Concent 34g/dL (31-37) Red Cell Distribution Width 14.4% (11.5-14.5) Platelet Count 210x10^3/uL (140-400) Neutrophils (%) (Auto) 89% (31-73) Lymphocytes (%) (Auto) 4% (24-48) Monocytes (%) (Auto) 7% (0-9) Eosinophils (%) (Auto) 0% (0-3) Basophils (%) (Auto) 0% (0-3) Neutrophils # (Auto) 4.9x10^3uL (1.8-7.7) Lymphocytes # (Auto) 0.2x10^3/uL (1.0-4.8) Monocytes # (Auto) 0.4x10^3/uL (0.0-1.1) Eosinophils # (Auto) 0.0x10^3/uL (0.0-0.7) Basophils # (Auto) 0.0x10^3/uL (0.0-0.2) Segmented Neutrophils % 34% (35-66) Band Neutrophils % 55% (0-9) Lymphocytes % 7% (24-48) Monocytes % 4% (0-10) Platelet Estimate Adequate (ADEQUATE) Large Platelets Occ Giant Platelets Occ Prothrombin Time 14.9SEC (11.7-14.0) Prothromb Time International Ratio 1.2 (0.8-1.1) Activated Partial Thromboplast Time 31SEC (24-38) Laboratory Tests Test 01/10/17 05:12 01/10/17 11:45 01/10/17 13:00 01/10/17 14:57 White Blood Count 7.7x10^3/uL (4.0-11.0) Red Blood Count 4.61x10^6/uL (3.50-5.40) Hemoglobin 13.2g/dL (12.0-15.5) 6.7g/dL (12.0-15.5) Hematocrit 40.3% (36.0-47.0) 19.9% (36.0-47.0) 18.4% (36.0-47.0) Mean Corpuscular Volume 87fL (79-100) Mean Corpuscular Hemoglobin 29pg (25-35) Mean Corpuscular Hemoglobin Concent 33g/dL (31-37) 34g/dL (31-37) Red Cell Distribution Width 14.4% (11.5-14.5) Platelet Count 285x10^3/uL (140-400) 20x10^3/uL (140-400) Neutrophils (%) (Auto) 68% (31-73) Lymphocytes (%) (Auto) 18% (24-48) Monocytes (%) (Auto) 13% (0-9) Eosinophils (%) (Auto) 1% (0-3) Basophils (%) (Auto) 0% (0-3) Neutrophils # (Auto) 5.2x10^3uL (1.8-7.7) Lymphocytes # (Auto) 1.4x10^3/uL (1.0-4.8) Monocytes # (Auto) 1.0x10^3/uL (0.0-1.1) Eosinophils # (Auto) 0.0x10^3/uL (0.0-0.7) Basophils # (Auto) 0.0x10^3/uL (0.0-0.2) Prothrombin Time 49.6SEC (11.7-14.0) Prothromb Time International Ratio 5.9 (0.8-1.1) Activated Partial Thromboplast Time 61SEC (24-38) Fibrinogen < 60mg/dL (200-440) Sodium Level 134mmol/L (136-145) Potassium Level 4.5mmol/L (3.5-5.1) Chloride Level 105mmol/L (98-107) Carbon Dioxide Level 22mmol/L (21-32) Anion Gap 7 (6-14) Blood Urea Nitrogen 20mg/dL (7-20) Creatinine 1.2mg/dL (0.6-1.0) Estimated GFR (Cockcroft-Gault) 43.3 Glucose Level 318mg/dL (70-99) Calcium Level 6.7mg/dL (8.5-10.1) Test 01/10/17 15:15 01/10/17 15:52 01/10/17 19:25 O2 Saturation 99% (92-99) Arterial Blood pH 7.48 (7.35-7.45) Arterial Blood pCO2 at Patient Temp 27mmHg (35-46) Arterial Blood pO2 at Patient Temp 450mmHg (65-108) Arterial Blood HCO3 19mmol/L (21-28) Arterial Blood Base Excess -4mmol/L (-3-3) FiO2 100 Lactic Acid Level 2.8mmol/L (0.4-2.0) White Blood Count 5.5x10^3/uL (4.0-11.0) Red Blood Count 2.82x10^6/uL (3.50-5.40) Hemoglobin 8.0g/dL (12.0-15.5) Hematocrit 23.6% (36.0-47.0) Mean Corpuscular Volume 84fL (79-100) Mean Corpuscular Hemoglobin 28pg (25-35) Mean Corpuscular Hemoglobin Concent 34g/dL (31-37) Red Cell Distribution Width 14.4% (11.5-14.5) Platelet Count 210x10^3/uL (140-400) Neutrophils (%) (Auto) 89% (31-73) Lymphocytes (%) (Auto) 4% (24-48) Monocytes (%) (Auto) 7% (0-9) Eosinophils (%) (Auto) 0% (0-3) Basophils (%) (Auto) 0% (0-3) Neutrophils # (Auto) 4.9x10^3uL (1.8-7.7) Lymphocytes # (Auto) 0.2x10^3/uL (1.0-4.8) Monocytes # (Auto) 0.4x10^3/uL (0.0-1.1) Eosinophils # (Auto) 0.0x10^3/uL (0.0-0.7) Basophils # (Auto) 0.0x10^3/uL (0.0-0.2) Segmented Neutrophils % 34% (35-66) Band Neutrophils % 55% (0-9) Lymphocytes % 7% (24-48) Monocytes % 4% (0-10) Platelet Estimate Adequate (ADEQUATE) Large Platelets Occ Giant Platelets Occ Prothrombin Time 14.9SEC (11.7-14.0) Prothromb Time International Ratio 1.2 (0.8-1.1) Activated Partial Thromboplast Time 31SEC (24-38) Problem List Problems Medical Problems: (1) Pancreatic mass Status: Acute Problems: JOSÉ MIGUEL VALERO MD Jan 10, 2017 20:55
[2017-01-10] MEDS ORDERED: ENOXAPARIN 30 MG/0.3 ML SYRINGE. SQ SCH (21:00)
[2017-01-10] MEDS ORDERED: FAMOTIDINE 20 MG/2 ML VIAL IVP SCH (21:00)
[2017-01-10] MEDS ORDERED: CEFOXITIN 2GM IVPB FOR OMNI 100 ML IV ONE (21:45)
--- NOTE | 2017-01-10 22:38 | PDOC ---
BRIEF OPERATIVE NOTE Pre-Op Diagnosis pancreatic mass Post-Op Diagnosis same Procedure Performed Reexploration, maturation of ileostomy Surgeon Gregory Anesthesia Type: General Blood Loss min Findings min bleeding, packs removed Complications none Additional Remarks [id number] JOSÉ MIGUEL VALERO MD Jan 10, 2017 22:38
[2017-01-10] MEDS: IV RINGERS,LACTATED 1000ML 1,000 ML IV SCH ×2 (22:45→23:43)
[2017-01-11] VITALS (30 sets, daily range): BP systolic 82–164; BP diastolic 38–68
[2017-01-11 00:56] LABS: BASE EXCESS COOX -4 mmol/L (-3-3); HCO3 COOX 20 mmol/L (21-28); METHEMOGLOBIN 0.2 % (0.0-1.9); OXYHEMOGLOBIN 98.2 %; PCO2 COOX 28 mmHg (35-46); PH COOX 7.46 (7.35-7.45); PO2 COOX 167 mmHg (65-108); SAT O2 COOX 98 % (92-99); TOTAL HEMOGLOBIN 8.2 g/dL
[2017-01-11 01:00] LABS: FIO2 COOX 40
[2017-01-11] MEDS ORDERED: IV NORMAL SALINE 1000ML BAG 1,000 ML IV ONE (02:30)
--- NOTE | 2017-01-11 04:37 | OP ---
DATE OF SURGERY: 01/10/2017 REFERRING PHYSICIANS: Dr. Amada Smith, Dr. Roshan Dejesus, Ms. Merlyn Santoyo, Dr. Yvan Mckeon, and Dr. Bret Perla. Thank you for the consult. PREOPERATIVE DIAGNOSES: Pancreatic mass, coagulopathy. POSTOPERATIVE DIAGNOSES: Pancreatic mass, coagulopathy. PROCEDURE: Re-exploration, maturation of ileostomy, removal of previous bags. SURGEON: Erik Jenkins M.D. ESTIMATED BLOOD LOSS: Minimal. COMPLICATIONS: None. INDICATIONS: A 81-year-old female who earlier today underwent en-bloc resection of large obstructing pancreatic mass. The patient became coagulopathic at the end of the procedure and damage control principles were initiated with packing of the abdomen and rapid closure. She was transferred to the ICU and transfused multiple units of blood products and improved with better coagulopathic labs and reasonably stable vital signs. She was noted to have some significant drainage from her drains and as such it was felt that patient would best be served by returning to the operating room for definitive closure. Informed consent was obtained from the patient's . DESCRIPTION OF PROCEDURE: After obtaining informed consent, the patient was taken to the operating room and induced under general endotracheal anesthetic. The patient was prepped and draped in the usual fashion in the anterior abdominal wall. Previous 0 Nurolon was removed and the abdominal cavity was opened. Multiple packs were removed, and had serosanguineous drainage on them, but relatively minimal bleeding. The abdominal cavity was explored and some irrigation applied. There was no obvious oozing or bleeding at this time. Subsequently, the jejunum was brought out through the left upper quadrant and tied to the fascia using multiple interrupted 3-0 Vicryl stitches. Again, this is very high jejunostomy as only approximately 50 cm of small bowel is viable. This small bowel appeared to be completely viable. No evidence of additional necrosis. Again, all viscera appeared to be normal in appearance without evidence of leakage or any concerning viscera. The fascia was reapproximated in the midline using 2 looped 0 PDS stitches in continuous fashion. Skin incision was reapproximated using tyler. Sterile dressing was placed over the wound. Of note, prior to closure, multiple pieces of Surgicel were placed throughout the abdominal cavity to aid in continued correction of bleeding. Sterile dressing was placed over the midline. The ileostomy was matured multiple 3-0 chromic stitches. Some additional 3-0 Vicryl were used to control skin bleeding and a piece of Surgicel was placed on the ileostomy opening to again help with coagulopathy, bleeding, was placed over this. The drains were maintained in place. Sterile dressing was placed over all wounds. The patient tolerated the procedure fairly well and remained off of pressors with good vital signs. She continues to make good urine output. The patient's was notified of the results of surgery. Thank you for allowing participation in the care of this pleasant patient. ERIK JENKINS MD DR: GIL/jenna JOB#: [id number] / [id number] ROSHAN Martin Diane PROPECK, SCOTT MD RAJA, VINAY MD TERMULO, CHERRIE MD MTDD
[2017-01-11 06:18] LABS: HCO3 ABG 17 mmol/L (21-28); PCO2 ABG 24 mmHg (35-46); PH ABG 7.46 (7.35-7.45); PO2 ABG 130 mmHg (65-108); SAT O2 ABG 98 % (92-99)
[2017-01-11 06:21] LABS: BASO % 0 % (0-3); EOS % 0 % (0-3); HEMATOCRIT 22.6 % (36.0-47.0); HEMOGLOBIN 7.5 g/dL (12.0-15.5); LYMPH # 0.8 x10^3/uL (1.0-4.8); LYMPH % 5 % (24-48); MEAN CORPUSCULAR HEMOGLOBIN 28 pg (25-35); MEAN CORPUSCULAR HGB CONC 33 g/dL (31-37); MEAN CORPUSCULAR VOLUME 84 fL (79-100); MONO % 6 % (0-9); NEUT % 89 % (31-73); PLATELET COUNT 201 x10^3/uL (140-400); RED CELL DISTRIBUTION WIDTH 14.7 % (11.5-14.5); WHITE BLOOD COUNT 16.3 x10^3/uL (4.0-11.0)
--- NOTE | 2017-01-11 06:23 | PDOC ---
Provider Note Provider Note [id number] acute resp fail cont vent support until more stable. ERMIAS OCHOA MD Jan 11, 2017 06:23
[2017-01-11 06:29] LABS: ALBUMIN 2.1 g/dL (3.4-5.0); ALBUMIN/GLOBULIN RATIO 0.8 (1.0-1.7); CREATININE 1.4 mg/dL (0.6-1.0); GFR 36.3; POTASSIUM 4.4 mmol/L (3.5-5.1); TOTAL PROTEIN 4.6 g/dL (6.4-8.2)
[2017-01-11 06:54] LABS: FIO2 ABG 30
[2017-01-11] MEDS: LEVOTHYROXINE 50 MCG TABLET PO SCH (07:30)
[2017-01-11] MEDS: ALBUTEROL SULFATE 2.5 MG/3 ML NEBU. NEB SCH ×4 (07:43→20:16)
--- NOTE | 2017-01-11 08:06 | CONS ---
DATE OF CONSULTATION: 01/11/2017 REASON FOR CONSULTATION: I was asked to see this 81-year-old lady for acute respiratory failure. HISTORY OF PRESENT ILLNESS: The patient is currently on the ventilator and is not able to give me any information. All of the information was obtained from chart and nursing staff. She was transferred from [facility] Emergency Room. She had abdominal pain, nausea, vomiting. She was found to have distal pancreatic mass with possible obstruction of left colon. She underwent an emergent surgery. She had exploratory laparotomy, extensive lysis of adhesions, partial colectomy, extended small bowel resection, left nephrectomy, splenectomy, distal pancreatectomy, partial gastrectomy, temporary closure and liver biopsy x 2. The patient was taken to OR again last night and had re-exploration and maturation of ileostomy. The patient received 8 units of blood, 4 units of FFP, 2 units of platelets and some cryo. She is currently on the ventilator. At times, she follows commands. PAST MEDICAL HISTORY: Hypertension, asthma. FAMILY HISTORY: Hypertension. SOCIAL HISTORY: Per chart, nonsmoker. ALLERGIES: STATIN, SULFA, ALBUTEROL, ALENDRONATE, ASPIRIN, CALCIUM, CELECOXIB, CARDIZEM. MEDICATIONS: Peridex, propofol, fentanyl, Pepcid, Lovenox, morphine, lactated Ringer's, Flonase, levothyroxine. REVIEW OF SYSTEMS: I have discussed the patient with RN, other systems are otherwise negative. PHYSICAL EXAMINATION: GENERAL: She appears pale. VITAL SIGNS: Her O2 saturation is 100%, respiratory rate 12, heart rate 116, blood pressure 104/44. HEENT: Normocephalic, atraumatic. Pupils equal, round, reactive to light. She is orally intubated. Nose is clear. NECK: There is no JVD, lymphadenopathy or thyromegaly. CARDIOVASCULAR: Tachycardic. PMI is not displaced. CHEST: Inspection is normal. LUNGS: Clear to auscultation. There is no wheezing. ABDOMEN: Soft. no bowel sounds. Status post ileostomy, exploratory laparotomy incisions, has a dressing on. EXTREMITIES: There is no edema. LYMPHATICS: There is no lymphadenopathy. NEUROLOGIC: She is intubated, follows commands at times. SKIN: Pale. LABORATORY DATA: I reviewed the following lab data. CT of the chest did show a left upper lobe 3 mm nodule. Chest x-ray shows ET tube at the level of mckenna, it was pulled back. There is no infiltrates. bone scan did not show any mets. This morning, WBC 5.5, hemoglobin 8, platelets 210. Sodium 134, potassium 4.5, chloride 105, CO2 22, glucose 318, BUN 20, creatinine 1.2. INR 1.2. PTT 31. CT of abdomen showed mass in distal pancreas, invasion of the spleen, stomach, partial obstruction of colon and liver mass. IMPRESSION: 1. Acute respiratory failure postoperatively. 2. Abnormal CT of the chest, 3 mm left upper lobe nodule. 3. Pancreatic mass status post exploratory laparotomy, extensive lysis of adhesions, partial colectomy, extended small bowel resection, left nephrectomy, splenectomy, distal pancreatectomy, partial gastrectomy, liver biopsy and ileostomy. 4. Anemia. 5. Acute kidney injury. 6. Asthma. 7. History of hypertension. PLAN AND RECOMMENDATIONS: 1. Titrate FiO2 to keep O2 saturation 94%. 2. Continue ventilatory support. Ventilatory setting was reviewed. ABG: pH 7.46, pCO2 28, pO2 167. Continue ventilatory support until the patient is more stable. 3. Pepcid for stress ulcer prophylaxis. 4. Lovenox for DVT prophylaxis. 5. Monitor creatinine very closely. 6. Elevate head of bed. 7. Monitor respiratory status very closely. 8. A.m. ABG and portable chest x-ray. 9. monitor 3 mm nodule. will need repeat ct in a few months. The findings and recommendations were discussed with RN and RT. Thank you very much for allowing me to participate in care of this very nice lady. ERMIAS OCHOA M.D. : CESAR/jenna JOB#: [id number] / [id number] MICHELLE
[2017-01-11] MEDS: CETIRIZINE HCL 10 MG TABLET. PO SCH (09:00)
[2017-01-11] MEDS: FLUTICASONE 50MCG/NASAL SPRAY 16GM BOTTLE. NS SCH (09:00)
[2017-01-11] MEDS: METOPROLOL TART IMMED RELEASE 25 MG TABLET. PO SCH ×2 (09:00→21:38)
[2017-01-11] MEDS: DOCUSATE SODIUM 100 MG CAPSULE. PO SCH ×2 (09:00→21:38)
[2017-01-11] MEDS: PANTOPRAZOLE IV PUSH 40 MG VIAL. IVP SCH (09:24)
[2017-01-11] MEDS: CHLORHEXIDINE 0.12% 15 ML MOUTHWASH. MM SCH ×2 (09:25→21:38)
[2017-01-11] MEDS: LEVOTHYROXINE SODIUM 25 MCG in IV NORMAL SALINE 50ML 5 ML IVP SCH (09:25)
--- NOTE | 2017-01-11 09:38 | PDOC ---
SURGICAL PROGRESS NOTE Subjective Pt intubated and sedated, small amount of UOP, mild tachy Vital Signs Vital Signs Date Time Temp Pulse Resp B/P Pulse Ox O2 Delivery O2 Flow Rate FiO2 01/11/17 07:44 100 Ventilator 01/11/17 06:00 116 12 104/44 01/11/17 04:00 97.6 97.6 I&O Intake and Output 01/11/17 07:00 Intake Total 7560 ml Output Total 5365 ml Balance 2195 ml Blood Product 4560 ml Other 3000 ml Output Urine Total 325 ml Gastric Drainage Total 10 ml Drainage Total 2530 ml Estimated Blood Loss 2500 ml PATIENT HAS A RDZ: Yes (accurate i and os) General: No acute distress Abdomen: Soft, No tenderness, Other (JANICE clear serosang) Labs Laboratory Tests Test 01/10/17 05:12 01/10/17 11:45 01/10/17 13:00 01/10/17 14:57 White Blood Count 7.7x10^3/uL (4.0-11.0) Red Blood Count 4.61x10^6/uL (3.50-5.40) Hemoglobin 13.2g/dL (12.0-15.5) 6.7g/dL (12.0-15.5) Hematocrit 40.3% (36.0-47.0) 19.9% (36.0-47.0) 18.4% (36.0-47.0) Mean Corpuscular Volume 87fL (79-100) Mean Corpuscular Hemoglobin 29pg (25-35) Mean Corpuscular Hemoglobin Concent 33g/dL (31-37) 34g/dL (31-37) Red Cell Distribution Width 14.4% (11.5-14.5) Platelet Count 285x10^3/uL (140-400) 20x10^3/uL (140-400) Neutrophils (%) (Auto) 68% (31-73) Lymphocytes (%) (Auto) 18% (24-48) Monocytes (%) (Auto) 13% (0-9) Eosinophils (%) (Auto) 1% (0-3) Basophils (%) (Auto) 0% (0-3) Neutrophils # (Auto) 5.2x10^3uL (1.8-7.7) Lymphocytes # (Auto) 1.4x10^3/uL (1.0-4.8) Monocytes # (Auto) 1.0x10^3/uL (0.0-1.1) Eosinophils # (Auto) 0.0x10^3/uL (0.0-0.7) Basophils # (Auto) 0.0x10^3/uL (0.0-0.2) Prothrombin Time 49.6SEC (11.7-14.0) Prothromb Time International Ratio 5.9 (0.8-1.1) Activated Partial Thromboplast Time 61SEC (24-38) Fibrinogen < 60mg/dL (200-440) Sodium Level 134mmol/L (136-145) Potassium Level 4.5mmol/L (3.5-5.1) Chloride Level 105mmol/L (98-107) Carbon Dioxide Level 22mmol/L (21-32) Anion Gap 7 (6-14) Blood Urea Nitrogen 20mg/dL (7-20) Creatinine 1.2mg/dL (0.6-1.0) Estimated GFR (Cockcroft-Gault) 43.3 Glucose Level 318mg/dL (70-99) Calcium Level 6.7mg/dL (8.5-10.1) Test 01/10/17 15:15 01/10/17 15:52 01/10/17 19:25 01/10/17 23:17 O2 Saturation 99% (92-99) 98% (92-99) Arterial Blood pH 7.48 (7.35-7.45) 7.46 (7.35-7.45) Arterial Blood pCO2 at Patient Temp 27mmHg (35-46) 28mmHg (35-46) Arterial Blood pO2 at Patient Temp 450mmHg (65-108) 167mmHg (65-108) Arterial Blood HCO3 19mmol/L (21-28) 20mmol/L (21-28) Arterial Blood Base Excess -4mmol/L (-3-3) -4mmol/L (-3-3) FiO2 100 40 Lactic Acid Level 2.8mmol/L (0.4-2.0) White Blood Count 5.5x10^3/uL (4.0-11.0) Red Blood Count 2.82x10^6/uL (3.50-5.40) Hemoglobin 8.0g/dL (12.0-15.5) Hematocrit 23.6% (36.0-47.0) Mean Corpuscular Volume 84fL (79-100) Mean Corpuscular Hemoglobin 28pg (25-35) Mean Corpuscular Hemoglobin Concent 34g/dL (31-37) Red Cell Distribution Width 14.4% (11.5-14.5) Platelet Count 210x10^3/uL (140-400) Neutrophils (%) (Auto) 89% (31-73) Lymphocytes (%) (Auto) 4% (24-48) Monocytes (%) (Auto) 7% (0-9) Eosinophils (%) (Auto) 0% (0-3) Basophils (%) (Auto) 0% (0-3) Neutrophils # (Auto) 4.9x10^3uL (1.8-7.7) Lymphocytes # (Auto) 0.2x10^3/uL (1.0-4.8) Monocytes # (Auto) 0.4x10^3/uL (0.0-1.1) Eosinophils # (Auto) 0.0x10^3/uL (0.0-0.7) Basophils # (Auto) 0.0x10^3/uL (0.0-0.2) Segmented Neutrophils % 34% (35-66) Band Neutrophils % 55% (0-9) Lymphocytes % 7% (24-48) Monocytes % 4% (0-10) Platelet Estimate Adequate (ADEQUATE) Large Platelets Occ Giant Platelets Occ Prothrombin Time 14.9SEC (11.7-14.0) Prothromb Time International Ratio 1.2 (0.8-1.1) Activated Partial Thromboplast Time 31SEC (24-38) Oxyhemoglobin 98.2% Methemoglobin 0.2% (0.0-1.9) Carbon Monoxide, Quantitative 0.0% (0.0-1.9) Test 01/11/17 05:55 01/11/17 06:00 White Blood Count 16.3x10^3/uL (4.0-11.0) Red Blood Count 2.70x10^6/uL (3.50-5.40) Hemoglobin 7.5g/dL (12.0-15.5) Hematocrit 22.6% (36.0-47.0) Mean Corpuscular Volume 84fL (79-100) Mean Corpuscular Hemoglobin 28pg (25-35) Mean Corpuscular Hemoglobin Concent 33g/dL (31-37) Red Cell Distribution Width 14.7% (11.5-14.5) Platelet Count 201x10^3/uL (140-400) Neutrophils (%) (Auto) 89% (31-73) Lymphocytes (%) (Auto) 5% (24-48) Monocytes (%) (Auto) 6% (0-9) Eosinophils (%) (Auto) 0% (0-3) Basophils (%) (Auto) 0% (0-3) Neutrophils # (Auto) 14.4x10^3uL (1.8-7.7) Lymphocytes # (Auto) 0.8x10^3/uL (1.0-4.8) Monocytes # (Auto) 1.0x10^3/uL (0.0-1.1) Eosinophils # (Auto) 0.0x10^3/uL (0.0-0.7) Basophils # (Auto) 0.0x10^3/uL (0.0-0.2) Sodium Level 140mmol/L (136-145) Potassium Level 4.4mmol/L (3.5-5.1) Chloride Level 109mmol/L (98-107) Carbon Dioxide Level 19mmol/L (21-32) Anion Gap 12 (6-14) Blood Urea Nitrogen 23mg/dL (7-20) Creatinine 1.4mg/dL (0.6-1.0) Estimated GFR (Cockcroft-Gault) 36.3 BUN/Creatinine Ratio 16 (6-20) Glucose Level 183mg/dL (70-99) Calcium Level 7.0mg/dL (8.5-10.1) Total Bilirubin 1.0mg/dL (0.2-1.0) Aspartate Amino Transf (AST/SGOT) 99U/L (15-37) Alanine Aminotransferase (ALT/SGPT) 66U/L (14-59) Alkaline Phosphatase 51U/L (46-116) Total Protein 4.6g/dL (6.4-8.2) Albumin 2.1g/dL (3.4-5.0) Albumin/Globulin Ratio 0.8 (1.0-1.7) O2 Saturation 98% (92-99) Arterial Blood pH 7.46 (7.35-7.45) Arterial Blood pCO2 at Patient Temp 24mmHg (35-46) Arterial Blood pO2 at Patient Temp 130mmHg (65-108) Arterial Blood HCO3 17mmol/L (21-28) Arterial Blood Base Excess -6mmol/L (-3-3) FiO2 30 Laboratory Tests Test 01/10/17 11:45 01/10/17 13:00 01/10/17 14:57 01/10/17 15:15 Hemoglobin 6.7g/dL (12.0-15.5) Hematocrit 19.9% (36.0-47.0) 18.4% (36.0-47.0) Mean Corpuscular Hemoglobin Concent 34g/dL (31-37) Prothrombin Time 49.6SEC (11.7-14.0) Prothromb Time International Ratio 5.9 (0.8-1.1) Activated Partial Thromboplast Time 61SEC (24-38) Fibrinogen < 60mg/dL (200-440) Platelet Count 20x10^3/uL (140-400) Sodium Level 134mmol/L (136-145) Potassium Level 4.5mmol/L (3.5-5.1) Chloride Level 105mmol/L (98-107) Carbon Dioxide Level 22mmol/L (21-32) Anion Gap 7 (6-14) Blood Urea Nitrogen 20mg/dL (7-20) Creatinine 1.2mg/dL (0.6-1.0) Estimated GFR (Cockcroft-Gault) 43.3 Glucose Level 318mg/dL (70-99) Calcium Level 6.7mg/dL (8.5-10.1) O2 Saturation 99% (92-99) Arterial Blood pH 7.48 (7.35-7.45) Arterial Blood pCO2 at Patient Temp 27mmHg (35-46) Arterial Blood pO2 at Patient Temp 450mmHg (65-108) Arterial Blood HCO3 19mmol/L (21-28) Arterial Blood Base Excess -4mmol/L (-3-3) FiO2 100 Test 01/10/17 15:52 01/10/17 19:25 01/10/17 23:17 01/11/17 05:55 Lactic Acid Level 2.8mmol/L (0.4-2.0) White Blood Count 5.5x10^3/uL (4.0-11.0) 16.3x10^3/uL (4.0-11.0) Red Blood Count 2.82x10^6/uL (3.50-5.40) 2.70x10^6/uL (3.50-5.40) Hemoglobin 8.0g/dL (12.0-15.5) 7.5g/dL (12.0-15.5) Hematocrit 23.6% (36.0-47.0) 22.6% (36.0-47.0) Mean Corpuscular Volume 84fL (79-100) 84fL (79-100) Mean Corpuscular Hemoglobin 28pg (25-35) 28pg (25-35) Mean Corpuscular Hemoglobin Concent 34g/dL (31-37) 33g/dL (31-37) Red Cell Distribution Width 14.4% (11.5-14.5) 14.7% (11.5-14.5) Platelet Count 210x10^3/uL (140-400) 201x10^3/uL (140-400) Neutrophils (%) (Auto) 89% (31-73) 89% (31-73) Lymphocytes (%) (Auto) 4% (24-48) 5% (24-48) Monocytes (%) (Auto) 7% (0-9) 6% (0-9) Eosinophils (%) (Auto) 0% (0-3) 0% (0-3) Basophils (%) (Auto) 0% (0-3) 0% (0-3) Neutrophils # (Auto) 4.9x10^3uL (1.8-7.7) 14.4x10^3uL (1.8-7.7) Lymphocytes # (Auto) 0.2x10^3/uL (1.0-4.8) 0.8x10^3/uL (1.0-4.8) Monocytes # (Auto) 0.4x10^3/uL (0.0-1.1) 1.0x10^3/uL (0.0-1.1) Eosinophils # (Auto) 0.0x10^3/uL (0.0-0.7) 0.0x10^3/uL (0.0-0.7) Basophils # (Auto) 0.0x10^3/uL (0.0-0.2) 0.0x10^3/uL (0.0-0.2) Segmented Neutrophils % 34% (35-66) Band Neutrophils % 55% (0-9) Lymphocytes % 7% (24-48) Monocytes % 4% (0-10) Platelet Estimate Adequate (ADEQUATE) Large Platelets Occ Giant Platelets Occ Prothrombin Time 14.9SEC (11.7-14.0) Prothromb Time International Ratio 1.2 (0.8-1.1) Activated Partial Thromboplast Time 31SEC (24-38) O2 Saturation 98% (92-99) Arterial Blood pH 7.46 (7.35-7.45) Arterial Blood pCO2 at Patient Temp 28mmHg (35-46) Arterial Blood pO2 at Patient Temp 167mmHg (65-108) Arterial Blood HCO3 20mmol/L (21-28) Arterial Blood Base Excess -4mmol/L (-3-3) Oxyhemoglobin 98.2% Methemoglobin 0.2% (0.0-1.9) Carbon Monoxide, Quantitative 0.0% (0.0-1.9) FiO2 40 Sodium Level 140mmol/L (136-145) Potassium Level 4.4mmol/L (3.5-5.1) Chloride Level 109mmol/L (98-107) Carbon Dioxide Level 19mmol/L (21-32) Anion Gap 12 (6-14) Blood Urea Nitrogen 23mg/dL (7-20) Creatinine 1.4mg/dL (0.6-1.0) Estimated GFR (Cockcroft-Gault) 36.3 BUN/Creatinine Ratio 16 (6-20) Glucose Level 183mg/dL (70-99) Calcium Level 7.0mg/dL (8.5-10.1) Total Bilirubin 1.0mg/dL (0.2-1.0) Aspartate Amino Transf (AST/SGOT) 99U/L (15-37) Alanine Aminotransferase (ALT/SGPT) 66U/L (14-59) Alkaline Phosphatase 51U/L (46-116) Total Protein 4.6g/dL (6.4-8.2) Albumin 2.1g/dL (3.4-5.0) Albumin/Globulin Ratio 0.8 (1.0-1.7) Test 01/11/17 06:00 O2 Saturation 98% (92-99) Arterial Blood pH 7.46 (7.35-7.45) Arterial Blood pCO2 at Patient Temp 24mmHg (35-46) Arterial Blood pO2 at Patient Temp 130mmHg (65-108) Arterial Blood HCO3 17mmol/L (21-28) Arterial Blood Base Excess -6mmol/L (-3-3) FiO2 30 Problem List Problems Medical Problems: (1) Pancreatic mass Status: Acute Assessment/Plan s/p xlap fluid bolus cont vent per pulm recheck labs at 1200 Problems: JOSÉ MIGUEL VALERO MD Jan 11, 2017 09:38
[2017-01-11] MEDS: IV RINGERS,LACTATED 1000ML 1,000 ML IV SCH ×2 (09:43→19:52)
[2017-01-11] MEDS ORDERED: IV NORMAL SALINE 500ML BAG 500 ML IV ONE (09:45)
--- NOTE | 2017-01-11 10:00 | PDOC ---
PROGRESS NOTES Subjective Subjective c/c - f/u of Pancreatic mass Objective Objective Vital Signs Date Time Temp Pulse Resp B/P Pulse Ox O2 Delivery O2 Flow Rate FiO2 01/11/17 07:44 100 Ventilator 01/11/17 06:00 116 12 104/44 01/11/17 04:00 97.6 97.6 Intake and Output 01/11/17 07:00 Intake Total 7560 ml Output Total 5365 ml Balance 2195 ml Blood Product 4560 ml Other 3000 ml Output Urine Total 325 ml Gastric Drainage Total 10 ml Drainage Total 2530 ml Estimated Blood Loss 2500 ml Physical Exam Heart: Normal S1, Normal S2 Lungs: Clear to auscultation Psych/Mental Status: Other (sedated on vent) Assessment Assessment Problems Medical Problems: (1) Pancreatic mass Status: Acute IMPRESSION AND PLAN: 1. 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 The mass is noted to be invading the spleen, stomach and splenic flexure of the colon with associated colonic obstruction. There was also evidence of an 18 mm lesion in the left lobe of the liver concerning for metastatic focus. I also discussed in detail with Dr. Erik Jenkins and in view of colon obstruction caused by the mass, I agree to proceed with surgery which was done 01/10/2017. All gross disease resected. f/u pathology. 2. CT scan of the chest 01/09/17 : 3 mm nonspecific left upper lobe pulmonary nodule. Attention on follow-up imaging. Bone scan 01/09/17 is neg. f/u CA 19-9 level. 3. Liver metastasis per CT abdomen. I discussed with Dr. Erik Jenkins. s/p resection of 2 lesions. 4. Post op care in ICU Comment Review of Relevant I have reviewed the following items [place] (where applicable) has been applied. Labs Laboratory Tests Test 01/10/17 05:12 01/10/17 11:45 01/10/17 13:00 01/10/17 14:57 White Blood Count 7.7x10^3/uL (4.0-11.0) Red Blood Count 4.61x10^6/uL (3.50-5.40) Hemoglobin 13.2g/dL (12.0-15.5) 6.7g/dL (12.0-15.5) Hematocrit 40.3% (36.0-47.0) 19.9% (36.0-47.0) 18.4% (36.0-47.0) Mean Corpuscular Volume 87fL (79-100) Mean Corpuscular Hemoglobin 29pg (25-35) Mean Corpuscular Hemoglobin Concent 33g/dL (31-37) 34g/dL (31-37) Red Cell Distribution Width 14.4% (11.5-14.5) Platelet Count 285x10^3/uL (140-400) 20x10^3/uL (140-400) Neutrophils (%) (Auto) 68% (31-73) Lymphocytes (%) (Auto) 18% (24-48) Monocytes (%) (Auto) 13% (0-9) Eosinophils (%) (Auto) 1% (0-3) Basophils (%) (Auto) 0% (0-3) Neutrophils # (Auto) 5.2x10^3uL (1.8-7.7) Lymphocytes # (Auto) 1.4x10^3/uL (1.0-4.8) Monocytes # (Auto) 1.0x10^3/uL (0.0-1.1) Eosinophils # (Auto) 0.0x10^3/uL (0.0-0.7) Basophils # (Auto) 0.0x10^3/uL (0.0-0.2) Prothrombin Time 49.6SEC (11.7-14.0) Prothromb Time International Ratio 5.9 (0.8-1.1) Activated Partial Thromboplast Time 61SEC (24-38) Fibrinogen < 60mg/dL (200-440) Sodium Level 134mmol/L (136-145) Potassium Level 4.5mmol/L (3.5-5.1) Chloride Level 105mmol/L (98-107) Carbon Dioxide Level 22mmol/L (21-32) Anion Gap 7 (6-14) Blood Urea Nitrogen 20mg/dL (7-20) Creatinine 1.2mg/dL (0.6-1.0) Estimated GFR (Cockcroft-Gault) 43.3 Glucose Level 318mg/dL (70-99) Calcium Level 6.7mg/dL (8.5-10.1) Test 01/10/17 15:15 01/10/17 15:52 01/10/17 19:25 01/10/17 23:17 O2 Saturation 99% (92-99) 98% (92-99) Arterial Blood pH 7.48 (7.35-7.45) 7.46 (7.35-7.45) Arterial Blood pCO2 at Patient Temp 27mmHg (35-46) 28mmHg (35-46) Arterial Blood pO2 at Patient Temp 450mmHg (65-108) 167mmHg (65-108) Arterial Blood HCO3 19mmol/L (21-28) 20mmol/L (21-28) Arterial Blood Base Excess -4mmol/L (-3-3) -4mmol/L (-3-3) FiO2 100 40 Lactic Acid Level 2.8mmol/L (0.4-2.0) White Blood Count 5.5x10^3/uL (4.0-11.0) Red Blood Count 2.82x10^6/uL (3.50-5.40) Hemoglobin 8.0g/dL (12.0-15.5) Hematocrit 23.6% (36.0-47.0) Mean Corpuscular Volume 84fL (79-100) Mean Corpuscular Hemoglobin 28pg (25-35) Mean Corpuscular Hemoglobin Concent 34g/dL (31-37) Red Cell Distribution Width 14.4% (11.5-14.5) Platelet Count 210x10^3/uL (140-400) Neutrophils (%) (Auto) 89% (31-73) Lymphocytes (%) (Auto) 4% (24-48) Monocytes (%) (Auto) 7% (0-9) Eosinophils (%) (Auto) 0% (0-3) Basophils (%) (Auto) 0% (0-3) Neutrophils # (Auto) 4.9x10^3uL (1.8-7.7) Lymphocytes # (Auto) 0.2x10^3/uL (1.0-4.8) Monocytes # (Auto) 0.4x10^3/uL (0.0-1.1) Eosinophils # (Auto) 0.0x10^3/uL (0.0-0.7) Basophils # (Auto) 0.0x10^3/uL (0.0-0.2) Segmented Neutrophils % 34% (35-66) Band Neutrophils % 55% (0-9) Lymphocytes % 7% (24-48) Monocytes % 4% (0-10) Platelet Estimate Adequate (ADEQUATE) Large Platelets Occ Giant Platelets Occ Prothrombin Time 14.9SEC (11.7-14.0) Prothromb Time International Ratio 1.2 (0.8-1.1) Activated Partial Thromboplast Time 31SEC (24-38) Oxyhemoglobin 98.2% Methemoglobin 0.2% (0.0-1.9) Carbon Monoxide, Quantitative 0.0% (0.0-1.9) Test 01/11/17 05:55 01/11/17 06:00 White Blood Count 16.3x10^3/uL (4.0-11.0) Red Blood Count 2.70x10^6/uL (3.50-5.40) Hemoglobin 7.5g/dL (12.0-15.5) Hematocrit 22.6% (36.0-47.0) Mean Corpuscular Volume 84fL (79-100) Mean Corpuscular Hemoglobin 28pg (25-35) Mean Corpuscular Hemoglobin Concent 33g/dL (31-37) Red Cell Distribution Width 14.7% (11.5-14.5) Platelet Count 201x10^3/uL (140-400) Neutrophils (%) (Auto) 89% (31-73) Lymphocytes (%) (Auto) 5% (24-48) Monocytes (%) (Auto) 6% (0-9) Eosinophils (%) (Auto) 0% (0-3) Basophils (%) (Auto) 0% (0-3) Neutrophils # (Auto) 14.4x10^3uL (1.8-7.7) Lymphocytes # (Auto) 0.8x10^3/uL (1.0-4.8) Monocytes # (Auto) 1.0x10^3/uL (0.0-1.1) Eosinophils # (Auto) 0.0x10^3/uL (0.0-0.7) Basophils # (Auto) 0.0x10^3/uL (0.0-0.2) Sodium Level 140mmol/L (136-145) Potassium Level 4.4mmol/L (3.5-5.1) Chloride Level 109mmol/L (98-107) Carbon Dioxide Level 19mmol/L (21-32) Anion Gap 12 (6-14) Blood Urea Nitrogen 23mg/dL (7-20) Creatinine 1.4mg/dL (0.6-1.0) Estimated GFR (Cockcroft-Gault) 36.3 BUN/Creatinine Ratio 16 (6-20) Glucose Level 183mg/dL (70-99) Calcium Level 7.0mg/dL (8.5-10.1) Total Bilirubin 1.0mg/dL (0.2-1.0) Aspartate Amino Transf (AST/SGOT) 99U/L (15-37) Alanine Aminotransferase (ALT/SGPT) 66U/L (14-59) Alkaline Phosphatase 51U/L (46-116) Total Protein 4.6g/dL (6.4-8.2) Albumin 2.1g/dL (3.4-5.0) Albumin/Globulin Ratio 0.8 (1.0-1.7) O2 Saturation 98% (92-99) Arterial Blood pH 7.46 (7.35-7.45) Arterial Blood pCO2 at Patient Temp 24mmHg (35-46) Arterial Blood pO2 at Patient Temp 130mmHg (65-108) Arterial Blood HCO3 17mmol/L (21-28) Arterial Blood Base Excess -6mmol/L (-3-3) FiO2 30 Laboratory Tests Test 01/10/17 11:45 01/10/17 13:00 01/10/17 14:57 01/10/17 15:15 Hemoglobin 6.7g/dL (12.0-15.5) Hematocrit 19.9% (36.0-47.0) 18.4% (36.0-47.0) Mean Corpuscular Hemoglobin Concent 34g/dL (31-37) Prothrombin Time 49.6SEC (11.7-14.0) Prothromb Time International Ratio 5.9 (0.8-1.1) Activated Partial Thromboplast Time 61SEC (24-38) Fibrinogen < 60mg/dL (200-440) Platelet Count 20x10^3/uL (140-400) Sodium Level 134mmol/L (136-145) Potassium Level 4.5mmol/L (3.5-5.1) Chloride Level 105mmol/L (98-107) Carbon Dioxide Level 22mmol/L (21-32) Anion Gap 7 (6-14) Blood Urea Nitrogen 20mg/dL (7-20) Creatinine 1.2mg/dL (0.6-1.0) Estimated GFR (Cockcroft-Gault) 43.3 Glucose Level 318mg/dL (70-99) Calcium Level 6.7mg/dL (8.5-10.1) O2 Saturation 99% (92-99) Arterial Blood pH 7.48 (7.35-7.45) Arterial Blood pCO2 at Patient Temp 27mmHg (35-46) Arterial Blood pO2 at Patient Temp 450mmHg (65-108) Arterial Blood HCO3 19mmol/L (21-28) Arterial Blood Base Excess -4mmol/L (-3-3) FiO2 100 Test 01/10/17 15:52 01/10/17 19:25 01/10/17 23:17 01/11/17 05:55 Lactic Acid Level 2.8mmol/L (0.4-2.0) White Blood Count 5.5x10^3/uL (4.0-11.0) 16.3x10^3/uL (4.0-11.0) Red Blood Count 2.82x10^6/uL (3.50-5.40) 2.70x10^6/uL (3.50-5.40) Hemoglobin 8.0g/dL (12.0-15.5) 7.5g/dL (12.0-15.5) Hematocrit 23.6% (36.0-47.0) 22.6% (36.0-47.0) Mean Corpuscular Volume 84fL (79-100) 84fL (79-100) Mean Corpuscular Hemoglobin 28pg (25-35) 28pg (25-35) Mean Corpuscular Hemoglobin Concent 34g/dL (31-37) 33g/dL (31-37) Red Cell Distribution Width 14.4% (11.5-14.5) 14.7% (11.5-14.5) Platelet Count 210x10^3/uL (140-400) 201x10^3/uL (140-400) Neutrophils (%) (Auto) 89% (31-73) 89% (31-73) Lymphocytes (%) (Auto) 4% (24-48) 5% (24-48) Monocytes (%) (Auto) 7% (0-9) 6% (0-9) Eosinophils (%) (Auto) 0% (0-3) 0% (0-3) Basophils (%) (Auto) 0% (0-3) 0% (0-3) Neutrophils # (Auto) 4.9x10^3uL (1.8-7.7) 14.4x10^3uL (1.8-7.7) Lymphocytes # (Auto) 0.2x10^3/uL (1.0-4.8) 0.8x10^3/uL (1.0-4.8) Monocytes # (Auto) 0.4x10^3/uL (0.0-1.1) 1.0x10^3/uL (0.0-1.1) Eosinophils # (Auto) 0.0x10^3/uL (0.0-0.7) 0.0x10^3/uL (0.0-0.7) Basophils # (Auto) 0.0x10^3/uL (0.0-0.2) 0.0x10^3/uL (0.0-0.2) Segmented Neutrophils % 34% (35-66) Band Neutrophils % 55% (0-9) Lymphocytes % 7% (24-48) Monocytes % 4% (0-10) Platelet Estimate Adequate (ADEQUATE) Large Platelets Occ Giant Platelets Occ Prothrombin Time 14.9SEC (11.7-14.0) Prothromb Time International Ratio 1.2 (0.8-1.1) Activated Partial Thromboplast Time 31SEC (24-38) O2 Saturation 98% (92-99) Arterial Blood pH 7.46 (7.35-7.45) Arterial Blood pCO2 at Patient Temp 28mmHg (35-46) Arterial Blood pO2 at Patient Temp 167mmHg (65-108) Arterial Blood HCO3 20mmol/L (21-28) Arterial Blood Base Excess -4mmol/L (-3-3) Oxyhemoglobin 98.2% Methemoglobin 0.2% (0.0-1.9) Carbon Monoxide, Quantitative 0.0% (0.0-1.9) FiO2 40 Sodium Level 140mmol/L (136-145) Potassium Level 4.4mmol/L (3.5-5.1) Chloride Level 109mmol/L (98-107) Carbon Dioxide Level 19mmol/L (21-32) Anion Gap 12 (6-14) Blood Urea Nitrogen 23mg/dL (7-20) Creatinine 1.4mg/dL (0.6-1.0) Estimated GFR (Cockcroft-Gault) 36.3 BUN/Creatinine Ratio 16 (6-20) Glucose Level 183mg/dL (70-99) Calcium Level 7.0mg/dL (8.5-10.1) Total Bilirubin 1.0mg/dL (0.2-1.0) Aspartate Amino Transf (AST/SGOT) 99U/L (15-37) Alanine Aminotransferase (ALT/SGPT) 66U/L (14-59) Alkaline Phosphatase 51U/L (46-116) Total Protein 4.6g/dL (6.4-8.2) Albumin 2.1g/dL (3.4-5.0) Albumin/Globulin Ratio 0.8 (1.0-1.7) Test 01/11/17 06:00 O2 Saturation 98% (92-99) Arterial Blood pH 7.46 (7.35-7.45) Arterial Blood pCO2 at Patient Temp 24mmHg (35-46) Arterial Blood pO2 at Patient Temp 130mmHg (65-108) Arterial Blood HCO3 17mmol/L (21-28) Arterial Blood Base Excess -6mmol/L (-3-3) FiO2 30 Medications Current Medications Sodium Chloride (Iv Sodium Chloride 0.45%) 1,000 ml @ 80 mls/hr [id number] IV Last administered on 01/08/17t 22:17; Start 01/08/17 at 21:03; Stop 01/09/17 at 09: 23; Status DC Ondansetron HCl (Zofran) 4 mg PRN Q6HRS PRN IV NAUSEA/VOMITING Last administered on 01/09/17 15:51; Start 01/08/17 at 21:15; Stop 01/10/17 at 17:41; Status DC Prochlorperazine Edisylate (Compazine) 10 mg PRN Q6HRS PRN IV NAUSEA/VOMITING; Start 01/08/17 at 21:15 Prochlorperazine (Compazine) 25 mg PRN Q12HR PRN MO NAUSEA/VOMITING; Start 01/08 at 21:15 Al Hydroxide/Mg Hydroxide (Mylanta Plus Xs) 30 ml PRN Q3HRS PRN PO HEARTBURN / GAS; Start 01/08/17 at 21:15 Calcium Carbonate/ Glycine (Tums) 500 mg PRN Q3HRS PRN PO UPSET STOMACH; Start 01/08/17 at 21:15; Stop 01/08/17 at 21:20; Status DC Oxycodone HCl (Roxicodone) 5 mg PRN Q3HRS PRN PO BREAKTHROUGH PAIN Last administered on 01/09/17 20:54; Start 01/08/17 at 21:15 Morphine Sulfate 1 mg PRN Q2HR PRN IV PAIN Last administered on 01/10/17 08:51 ; Start 01/08/17 at 21:15; Stop 01/11/17 at 08:13; Status DC Acetaminophen (Tylenol) 650 mg PRN Q6HRS PRN PO MILD PAIN / TEMP; Start at 21:15 Docusate Sodium (Colace) 100 mg BID PO Last administered on 01/09/17 20:54; Start 01/08/17 at 22:00 Magnesium Hydroxide (Milk Of Magnesia) 2,400 mg PRN Q12HR PRN PO CONSTIPATION; Start 01/08/17 at 21:15 Bisacodyl (Dulcolax Supp) 10 mg PRN DAILY PRN MO CONSTIPATION; Start 01/08/17 at 21:15 Enoxaparin Sodium (Lovenox 40mg Syringe) 40 mg Q24H SQ ; Start 01/08/17 at 22:00 ; Stop 01/08/17 at 22:00; Status DC Pantoprazole Sodium (Protonix Vial) 40 mg DAILYAC IVP Last administered on 09:24; Start 01/09/17 at 07:30 Enoxaparin Sodium 30 mg 30 mg Q24H SQ Last administered on 01/08/17 22:20; Start 01/08/17 at 22:00; Stop 01/09/17 at 09:24; Status DC Cefoxitin Sodium (Mefoxin 2gm Ivpb For Omni) 100 ml @ 200 mls/hr 1X PERIOP IV ; Start 01/09/17 at 08:45; Stop 01/10/17 at 11:49; Status DC Cetirizine HCl (Zyrtec) 10 mg DAILY PO Last administered on 01/09/17 10:27; Start 01/09/17 at 10:30 Guaifenesin (Mucinex) 600 mg PRN Q8HRS PRN PO CONGESTION; Start 01/09/17 at 09: 30 Levothyroxine Sodium (Synthroid) 50 mcg DAILYAC PO Last administered on 10:27; Start 01/09/17 at 10:30; Stop 01/11/17 at 08:19; Status DC Tramadol HCl (Ultram) 50 mg PRN Q6HRS PRN PO PAIN; Start 01/09/17 at 09:30 Non-Formulary Medication 2 puff QID INH ; Start 01/09/17 at 13:00; Status UNV Metoprolol Tartrate (Lopressor) 25 mg BID PO Last administered on 01/09/17 20: 54; Start 01/09/17 at 10:30 Fluticasone Propionate 2 spray 2 spray DAILY NS Last administered on 01/09/17 10:28; Start 01/09/17 at 10:30; Stop 01/09/17 at 13:10; Status DC Amino Acids/ Electrolytes/ Dextrose (Clinimix E 4.25%-5% Solution) 1,000 ml @ 80 mls/hr [id number] IV Last administered on 01/10/17 01:00; Start 01/09/17 at 10: 30 Enoxaparin Sodium (Lovenox 30mg Syringe) 30 mg Q24H SQ ; Start 01/09/17 at 10:00 ; Stop 01/09/17 at 10:00; Status DC Enoxaparin Sodium (Lovenox 30mg Syringe) 30 mg 1X ONCE SQ ; Start 01/09/17 at 10 :00; Stop 01/09/17 at 10:00; Status DC Enoxaparin Sodium (Lovenox 30mg Syringe) 30 mg Q24H SQ ; Start 01/10/17 at 21:00 ; Stop 01/11/17 at 09:42; Status DC Albuterol Sulfate (Ventolin Neb Soln) 2.5 mg RTQID NEB Last administered on 01/11t 07:43; Start 01/09/17 at 12:00 Fluticasone Propionate (Flonase) 2 spray DAILY NS ; Start 01/09/17 at 13:10 Ondansetron HCl (Zofran) 4 mg PRN Q6HRS PRN IV NAUSEA/VOMITING; Start 01/10/17 at 07:30; Stop 01/10/17 at 18:00; Status DC Fentanyl Citrate (Fentanyl 2ml Vial) 25 mcg PRN Q5MIN PRN IV MILD PAIN; Start 01/10/17 at 07:30; Stop 01/10/17 at 18:00; Status DC Fentanyl Citrate 50 mcg 50 mcg PRN Q5MIN PRN IV MODERATE PAIN; Start 01/10/17 at 07:30; Stop 01/10/17 at 18:00; Status DC Lactated Ringer's (Iv Lactated Ringers) 1,000 ml @ 30 mls/hr Q24H IV ; Start at 07:28; Stop 01/10/17 at 19:27; Status DC Prochlorperazine Edisylate (Compazine) 5 mg PACU PRN PRN IV NAUSEA, MRX1; Start 01/10/17 at 07:30; Stop 01/10/17 at 18:00; Status DC Desflurane (Suprane) 90 ml STK-MED ONCE IH ; Start 01/10/17 at 09:03; Stop at 09:04; Status DC Fentanyl Citrate (Fentanyl 2ml Vial) 100 mcg STK-MED ONCE .ROUTE ; Start at 09:03; Stop 01/10/17 at 09:04; Status DC Rocuronium [place] 50 mg 50 mg STK-MED ONCE .ROUTE ; Start 01/10/17 at 09:03; Stop 01/10/17 at 09:04; Status DC Propofol (Diprivan) 20 ml @ As Directed STK-MED ONCE IV ; Start 01/10/17 at 09:04 ; Stop 01/10/17 at 09:05; Status DC Ondansetron HCl (Zofran) 4 mg STK-MED ONCE .ROUTE ; Start 01/10/17 at 09:04; Stop 01/10/17 at 09:05; Status DC Dexamethasone Sodium Phosphate (Decadron) 20 mg STK-MED ONCE .ROUTE ; Start 01/10 at 09:04; Stop 01/10/17 at 09:05; Status DC Lidocaine HCl (Lidocaine HCl 2% Abboject) 100 mg STK-MED ONCE .ROUTE ; Start 01/10/17 at 09:04; Stop 01/10/17 at 09:05; Status DC Phenylephrine HCl (Rodrigue-Synephrine Inj) 10 mg STK-MED ONCE .ROUTE ; Start at 09:27; Stop 01/10/17 at 09:28; Status DC Fentanyl Citrate (Fentanyl 5ml Vial) 250 mcg STK-MED ONCE .ROUTE ; Start at 10:17; Stop 01/10/17 at 10:18; Status DC Rocuronium [place] 50 mg 50 mg STK-MED ONCE .ROUTE ; Start 01/10/17 at 10:26; Stop 01/10/17 at 10:27; Status DC Albumin Human (Plasmanate) 500 ml @ As Directed STK-MED ONCE IV ; Start at 11:32; Stop 01/10/17 at 11:33; Status DC Lorazepam (Ativan) 2 mg STK-MED ONCE .ROUTE ; Start 01/10/17 at 11:38; Stop at 11:39; Status DC Cellulose 1 each 1 each STK-MED ONCE .ROUTE Last administered on 01/10/17t 10:23 ; Start 01/10/17 at 12:09; Stop 01/10/17 at 12:10; Status DC Albumin Human (Plasmanate) 500 ml @ As Directed STK-MED ONCE IV ; Start at 12:14; Stop 01/10/17 at 12:15; Status DC Phenylephrine HCl (Rodrigue-Synephrine Inj) 10 mg STK-MED ONCE .ROUTE ; Start at 12:14; Stop 01/10/17 at 12:15; Status DC Cellulose 1 each STK-MED ONCE .ROUTE Last administered on 01/10/17 10:23; Start 01/10/17 at 12:46; Stop 01/10/17 at 12:47; Status DC Lorazepam (Ativan) 2 mg STK-MED ONCE .ROUTE ; Start 01/10/17 at 12:47; Stop at 12:48; Status DC Phenylephrine HCl (Rodrigue-Synephrine Inj) 10 mg STK-MED ONCE .ROUTE ; Start at 12:55; Stop 01/10/17 at 12:56; Status DC Vasopressin (Vasostrict) 20 unit STK-MED ONCE .ROUTE ; Start 01/10/17 at 12:58; Stop 01/10/17 at 12:59; Status DC Norepinephrine Bitartrate (Levophed Vial) 4 mg STK-MED ONCE IV ; Start 01/10/17 at 13:00; Stop 01/10/17 at 13:01; Status DC Norepinephrine Bitartrate (Levophed Vial) 4 mg STK-MED ONCE IV ; Start 01/10/17 at 13:00; Stop 01/10/17 at 13:01; Status DC Rocuronium [place] (Zemuron) 50 mg STK-MED ONCE .ROUTE ; Start 01/10/17 at 13:30 ; Stop 01/10/17 at 13:31; Status DC Famotidine (Pepcid) 20 mg QHS IVP ; Start 01/10/17 at 21:00; Stop 01/11/17 at 08: 15; Status DC Sodium Chloride 3 ml 3 ml QSHIFT PRN IV AFTER MEDS AND BLOOD DRAWS; Start at 13:45 Lactated Ringer's (Iv Lactated Ringers) 1,000 ml @ 100 mls/hr Q10H IV Last administered on 01/10/17 22:45; Start 01/10/17 at 13:43 Morphine Sulfate 1 mg PRN Q1HR PRN IV PAIN Last administered on 01/10/17 17:41 ; Start 01/10/17 at 13:45 Ondansetron HCl (Zofran) 4 mg PRN Q6HRS PRN IV NAUESA, 1ST CHOICE; Start at 13:45 Cellulose 2 each STK-MED ONCE TP Last administered on 01/10/17 10:23; Start 01/10/17 at 10:23; Stop 01/10/17 at 14:25; Status DC Lorazepam (Ativan) 2 mg STK-MED ONCE .ROUTE ; Start 01/10/17 at 20:59; Stop at 21:00; Status DC Rocuronium [place] 50 mg 50 mg STK-MED ONCE .ROUTE ; Start 01/10/17 at 21:30; Stop 01/10/17 at 21:31; Status DC Cefoxitin Sodium (Mefoxin 2gm Ivpb For Omni) 100 ml @ As Directed STK-MED ONCE IV ; Start 01/10/17 at 21:45; Stop 01/10/17 at 21:46; Status DC Cellulose 1 each STK-MED ONCE .ROUTE Last administered on 01/10/17 21:47; Start 01/10/17 at 21:48; Stop 01/10/17 at 21:49; Status DC Cellulose 2 each STK-MED ONCE TP Last administered on 01/10/17 21:47; Start 01/10/17 at 21:47; Stop 01/10/17 at 22:14; Status DC Sodium Chloride 3 ml 3 ml QSHIFT PRN IV AFTER MEDS AND BLOOD DRAWS; Start at 22:30 Fentanyl Citrate 30 ml @ 0 mls/hr CONT PRN IV PROTOCOL; Start 01/10/17 at 22:30 Propofol (Diprivan) 100 ml @ 0 mls/hr CONT PRN IV PER PROTOCOL; Start 01/10/17 at 22:30 Chlorhexidine Gluconate 15 ml 15 ml BID MM Last administered on 01/11/17 09:25 ; Start 01/11/17 at 09:00 Sodium Chloride 1,000 ml @ 1,000 mls/hr 1X ONCE IV Last administered on 02:30; Start 01/11/17 at 02:30; Stop 01/11/17 at 03:29; Status DC Levothyroxine Sodium 25 mcg/ Sodium Chloride 5 ml @ 100 mls/hr DAILY IVP Last administered on 01/11/17 09:25; Start 01/11/17 at 09:00 Sodium Chloride (Iv Sodium Chloride 0.9% 500ml Bag) 500 ml @ 500 mls/hr 1X ONCE IV ; Start 01/11/17 at 09:45; Stop 01/11/17 at 10:44 Heparin Sodium (Porcine) 5,000 unit Q8HRS SQ ; Start 01/11/17 at 14:00 Active Scripts Active Reported Pred Forte (Prednisolone Acetate) 1 Ml Drops.susp 1 Ml OU BID PRN Visine Allergy Relief Drop (Tetrahydrozoline Hcl/Zn Sulf) 15 Ml Drops 1 Drop OU PRN Thera Tears (Carboxymethylcellulose Sodium) 15 Ml Drops 1 Drop OU PRN Jaime-128 (Sodium Chloride) 15 Ml Drops 1 Drop OU PRN Tramadol Hcl 100 Mg Tbmp.24hr 100 Mg PO Q6H PRN Tramadol Hcl 50 Mg Tablet 50 Mg PO Q6H PRN Zyrtec (Cetirizine Hcl) 10 Mg Tablet 10 Mg PO DAILY Nasacort (Triamcinolone Acetonide) 10.8 Ml [place] 2 [place] NS DAILY Proair Hfa Inhaler (Albuterol Sulfate) 8.5 Gm Hfa.aer.ad 2 Puff INH QID Mucinex (Guaifenesin) 600 Mg Tablet.er 600 Mg PO Q8HRS PRN Levothyroxine Sodium 50 Mcg Tablet 50 Mcg PO DAILYAC Dyazide 37.5-25 Capsule (Triamterene/Hydrochlorothiazid) 1 Each Capsule 1 Cap PO DAILY Bystolic (Nebivolol) 5 Mg Tablet 5 Mg PO DAILY Vitals/I & O Vital Sign - Last 24 Hours 01/10/17 01/10/17 01/10/17 01/10/17 14:00 14:00 14:00 14:12 Temp 97.5 97.5 97.5 97.5 Pulse 90 87 Resp 14 B/P 90/36 93/45 Pulse Ox 100 100 O2 Delivery Ventilator Mechanical Ventilator Ventilator 01/10/17 01/10/17 01/10/17 01/10/17 14:15 14:30 14:45 15:00 Temp 97.4 97.4 97.2 97.4 97.4 97.2 Pulse 86 86 84 86 Resp 14 14 14 14 B/P 88/36 100/38 108/38 104/42 Pulse Ox 100 100 100 100 O2 Delivery Ventilator Ventilator Ventilator Ventilator 01/10/17 01/10/17 01/10/17 4/8/17 15:15 15:30 15:45 15:58 Temp 97.0 96.5 96.5 97.0 96.5 96.5 Pulse 82 84 88 Resp 14 14 14 B/P 138/50 132/48 116/46 Pulse Ox 100 100 100 100 O2 Delivery Ventilator Ventilator Ventilator Ventilator 01/10/17 01/10/17 01/10/17 01/10/17 16:00 16:00 16:00 16:15 Temp 96.3 96.3 Pulse 90 82 Resp 14 14 B/P 102/38 168/56 Pulse Ox 100 100 O2 Delivery Ventilator Mechanical Ventilator Ventilator 01/10/17 01/10/17 01/10/17 01/10/17 16:30 16:45 17:00 17:45 Temp 96.6 97.1 97.6 96.6 97.1 97.6 Pulse 78 82 91 Resp 14 14 14 14 B/P 174/58 187/86 185/61 178/64 Pulse Ox 100 100 100 100 O2 Delivery Ventilator Ventilator Ventilator Ventilator 01/10/17 01/10/17 01/10/17 01/10/17 17:56 18:00 18:30 18:45 Temp 97.5 97.5 97.6 97.5 97.5 97.6 Pulse 90 93 100 Resp 14 14 14 B/P 165/61 155/60 160/64 Pulse Ox 100 100 100 100 O2 Delivery Ventilator Ventilator Ventilator Ventilator 01/10/17 01/10/17 01/10/17 01/10/17 19:00 19:27 20:00 20:00 Pulse 110 Resp 14 B/P 140/62 Pulse Ox 100 100 O2 Delivery Ventilator Ventilator Mechanical Ventilator 01/10/17 01/10/17 01/10/17 01/10/17 20:00 21:00 21:19 22:35 Temp 99.5 99.5 Pulse 114 117 110 Resp 14 14 14 B/P 114/50 111/49 94/40 Pulse Ox 100 100 100 100 O2 Delivery Ventilator Ventilator Ventilator Ventilator 01/10/17 01/10/17 01/10/17 01/10/17 22:50 23:00 23:25 23:51 Pulse 110 112 Resp 14 14 B/P 96/46 96/44 Pulse Ox 100 100 100 O2 Delivery Ventilator Ventilator Ventilator Ventilator 4/9/01/11/17 01/11/17 01/11/17 00:00 00:00 00:00 01:00 Temp 98.1 98.1 Pulse 113 118 Resp 12 12 B/P 97/43 105/50 Pulse Ox 100 100 O2 Delivery Ventilator Mechanical Ventilator Ventilator 01/11/17 01/11/17 01/11/17 01/11/17 01:23 02:00 03:00 03:22 Pulse 115 102 Resp 12 12 B/P 102/49 116/45 Pulse Ox 100 100 100 100 O2 Delivery Ventilator Ventilator Ventilator Ventilator 01/11/17 01/11/17 01/11/17 01/11/17 04:00 04:00 04:00 05:00 Temp 97.6 97.6 Pulse 110 114 Resp 12 12 B/P 97/43 100/45 Pulse Ox 100 100 O2 Delivery Ventilator Mechanical Ventilator Ventilator 01/11/17 01/11/17 01/11/17 05:19 06:00 07:44 Pulse 116 Resp 12 B/P 104/44 Pulse Ox 100 100 100 O2 Delivery Ventilator Ventilator Ventilator Intake and Output 01/10/17 01/10/17 01/11/17 15:00 23:00 07:00 Intake Total 4800 ml 2760 ml Output Total 2580 ml 2165 ml 620 ml Balance 2220 ml 595 ml -620 ml STEF COOPER MD Jan 11, 2017 10:00
--- NOTE | 2017-01-11 10:15 | PDOC ---
PROGRESS NOTES Chief Complaint Chief Complaint 1. 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 Bowel obstruction, ileus 3. Acute anemia of blood loss from OR s/p multiple BTs or pRBC< cryo? FFP (on OR day) 4. MOd PCM 5. hyponatremia 6. Acute respiratory failure on IPPV sec to # 1 (intubated for oR) 7. SIRS< POA, leukocytosis History of Present Illness History of Present Illness Intubated, sedated CA 19-9 still pending MAssive blood loss, 2500 EBL plus 1500 cc from JANICE drain last night, needed to take back to OR - per GOLF CADDY Got multiple prBC< FFPs, cryo HGb today 7.5 from 8, WBC 16 CRea 1.4 from 1.2 HAs R Central line iJ PLAN: ff up biopsy and CA 19-9 MOnitor CBC and labs Heparin SQ for dvt prophy if ok with GS? STart TPN if GS agrees? Dw GOLF CADDY Vitals Vitals Vital Signs Date Time Temp Pulse Resp B/P Pulse Ox O2 Delivery O2 Flow Rate FiO2 01/11/17 07:44 100 Ventilator 01/11/17 06:00 116 12 104/44 01/11/17 04:00 97.6 97.6 Physical Exam General: No acute distress Heart: Normal S1, Normal S2 Abdomen: Soft, No tenderness, Other (JANICE clear serosang) Extremities: No clubbing, No edema Skin: No significant lesion Labs LABS Laboratory Tests Test 01/10/17 11:45 01/10/17 13:00 01/10/17 14:57 01/10/17 15:15 Hemoglobin 6.7g/dL (12.0-15.5) Hematocrit 19.9% (36.0-47.0) 18.4% (36.0-47.0) Mean Corpuscular Hemoglobin Concent 34g/dL (31-37) Prothrombin Time 49.6SEC (11.7-14.0) Prothromb Time International Ratio 5.9 (0.8-1.1) Activated Partial Thromboplast Time 61SEC (24-38) Fibrinogen < 60mg/dL (200-440) Platelet Count 20x10^3/uL (140-400) Sodium Level 134mmol/L (136-145) Potassium Level 4.5mmol/L (3.5-5.1) Chloride Level 105mmol/L (98-107) Carbon Dioxide Level 22mmol/L (21-32) Anion Gap 7 (6-14) Blood Urea Nitrogen 20mg/dL (7-20) Creatinine 1.2mg/dL (0.6-1.0) Estimated GFR (Cockcroft-Gault) 43.3 Glucose Level 318mg/dL (70-99) Calcium Level 6.7mg/dL (8.5-10.1) O2 Saturation 99% (92-99) Arterial Blood pH 7.48 (7.35-7.45) Arterial Blood pCO2 at Patient Temp 27mmHg (35-46) Arterial Blood pO2 at Patient Temp 450mmHg (65-108) Arterial Blood HCO3 19mmol/L (21-28) Arterial Blood Base Excess -4mmol/L (-3-3) FiO2 100 Test 01/10/17 15:52 01/10/17 19:25 01/10/17 23:17 01/11/17 05:55 Lactic Acid Level 2.8mmol/L (0.4-2.0) White Blood Count 5.5x10^3/uL (4.0-11.0) 16.3x10^3/uL (4.0-11.0) Red Blood Count 2.82x10^6/uL (3.50-5.40) 2.70x10^6/uL (3.50-5.40) Hemoglobin 8.0g/dL (12.0-15.5) 7.5g/dL (12.0-15.5) Hematocrit 23.6% (36.0-47.0) 22.6% (36.0-47.0) Mean Corpuscular Volume 84fL (79-100) 84fL (79-100) Mean Corpuscular Hemoglobin 28pg (25-35) 28pg (25-35) Mean Corpuscular Hemoglobin Concent 34g/dL (31-37) 33g/dL (31-37) Red Cell Distribution Width 14.4% (11.5-14.5) 14.7% (11.5-14.5) Platelet Count 210x10^3/uL (140-400) 201x10^3/uL (140-400) Neutrophils (%) (Auto) 89% (31-73) 89% (31-73) Lymphocytes (%) (Auto) 4% (24-48) 5% (24-48) Monocytes (%) (Auto) 7% (0-9) 6% (0-9) Eosinophils (%) (Auto) 0% (0-3) 0% (0-3) Basophils (%) (Auto) 0% (0-3) 0% (0-3) Neutrophils # (Auto) 4.9x10^3uL (1.8-7.7) 14.4x10^3uL (1.8-7.7) Lymphocytes # (Auto) 0.2x10^3/uL (1.0-4.8) 0.8x10^3/uL (1.0-4.8) Monocytes # (Auto) 0.4x10^3/uL (0.0-1.1) 1.0x10^3/uL (0.0-1.1) Eosinophils # (Auto) 0.0x10^3/uL (0.0-0.7) 0.0x10^3/uL (0.0-0.7) Basophils # (Auto) 0.0x10^3/uL (0.0-0.2) 0.0x10^3/uL (0.0-0.2) Segmented Neutrophils % 34% (35-66) Band Neutrophils % 55% (0-9) Lymphocytes % 7% (24-48) Monocytes % 4% (0-10) Platelet Estimate Adequate (ADEQUATE) Large Platelets Occ Giant Platelets Occ Prothrombin Time 14.9SEC (11.7-14.0) Prothromb Time International Ratio 1.2 (0.8-1.1) Activated Partial Thromboplast Time 31SEC (24-38) O2 Saturation 98% (92-99) Arterial Blood pH 7.46 (7.35-7.45) Arterial Blood pCO2 at Patient Temp 28mmHg (35-46) Arterial Blood pO2 at Patient Temp 167mmHg (65-108) Arterial Blood HCO3 20mmol/L (21-28) Arterial Blood Base Excess -4mmol/L (-3-3) Oxyhemoglobin 98.2% Methemoglobin 0.2% (0.0-1.9) Carbon Monoxide, Quantitative 0.0% (0.0-1.9) FiO2 40 Sodium Level 140mmol/L (136-145) Potassium Level 4.4mmol/L (3.5-5.1) Chloride Level 109mmol/L (98-107) Carbon Dioxide Level 19mmol/L (21-32) Anion Gap 12 (6-14) Blood Urea Nitrogen 23mg/dL (7-20) Creatinine 1.4mg/dL (0.6-1.0) Estimated GFR (Cockcroft-Gault) 36.3 BUN/Creatinine Ratio 16 (6-20) Glucose Level 183mg/dL (70-99) Calcium Level 7.0mg/dL (8.5-10.1) Total Bilirubin 1.0mg/dL (0.2-1.0) Aspartate Amino Transf (AST/SGOT) 99U/L (15-37) Alanine Aminotransferase (ALT/SGPT) 66U/L (14-59) Alkaline Phosphatase 51U/L (46-116) Total Protein 4.6g/dL (6.4-8.2) Albumin 2.1g/dL (3.4-5.0) Albumin/Globulin Ratio 0.8 (1.0-1.7) Test 01/11/17 06:00 O2 Saturation 98% (92-99) Arterial Blood pH 7.46 (7.35-7.45) Arterial Blood pCO2 at Patient Temp 24mmHg (35-46) Arterial Blood pO2 at Patient Temp 130mmHg (65-108) Arterial Blood HCO3 17mmol/L (21-28) Arterial Blood Base Excess -6mmol/L (-3-3) FiO2 30 Review of Systems Review of Systems intubated, sedated Assessment and Plan Assessmemt and Plan Problems Medical Problems: (1) Pancreatic mass Status: Acute Problems: Comment Review of Relevant I have reviewed the following items [place] (where applicable) has been applied. Labs Laboratory Tests Test 01/10/17 05:12 01/10/17 11:45 01/10/17 13:00 01/10/17 14:57 White Blood Count 7.7x10^3/uL (4.0-11.0) Red Blood Count 4.61x10^6/uL (3.50-5.40) Hemoglobin 13.2g/dL (12.0-15.5) 6.7g/dL (12.0-15.5) Hematocrit 40.3% (36.0-47.0) 19.9% (36.0-47.0) 18.4% (36.0-47.0) Mean Corpuscular Volume 87fL (79-100) Mean Corpuscular Hemoglobin 29pg (25-35) Mean Corpuscular Hemoglobin Concent 33g/dL (31-37) 34g/dL (31-37) Red Cell Distribution Width 14.4% (11.5-14.5) Platelet Count 285x10^3/uL (140-400) 20x10^3/uL (140-400) Neutrophils (%) (Auto) 68% (31-73) Lymphocytes (%) (Auto) 18% (24-48) Monocytes (%) (Auto) 13% (0-9) Eosinophils (%) (Auto) 1% (0-3) Basophils (%) (Auto) 0% (0-3) Neutrophils # (Auto) 5.2x10^3uL (1.8-7.7) Lymphocytes # (Auto) 1.4x10^3/uL (1.0-4.8) Monocytes # (Auto) 1.0x10^3/uL (0.0-1.1) Eosinophils # (Auto) 0.0x10^3/uL (0.0-0.7) Basophils # (Auto) 0.0x10^3/uL (0.0-0.2) Prothrombin Time 49.6SEC (11.7-14.0) Prothromb Time International Ratio 5.9 (0.8-1.1) Activated Partial Thromboplast Time 61SEC (24-38) Fibrinogen < 60mg/dL (200-440) Sodium Level 134mmol/L (136-145) Potassium Level 4.5mmol/L (3.5-5.1) Chloride Level 105mmol/L (98-107) Carbon Dioxide Level 22mmol/L (21-32) Anion Gap 7 (6-14) Blood Urea Nitrogen 20mg/dL (7-20) Creatinine 1.2mg/dL (0.6-1.0) Estimated GFR (Cockcroft-Gault) 43.3 Glucose Level 318mg/dL (70-99) Calcium Level 6.7mg/dL (8.5-10.1) Test 01/10/17 15:15 01/10/17 15:52 01/10/17 19:25 01/10/17 23:17 O2 Saturation 99% (92-99) 98% (92-99) Arterial Blood pH 7.48 (7.35-7.45) 7.46 (7.35-7.45) Arterial Blood pCO2 at Patient Temp 27mmHg (35-46) 28mmHg (35-46) Arterial Blood pO2 at Patient Temp 450mmHg (65-108) 167mmHg (65-108) Arterial Blood HCO3 19mmol/L (21-28) 20mmol/L (21-28) Arterial Blood Base Excess -4mmol/L (-3-3) -4mmol/L (-3-3) FiO2 100 40 Lactic Acid Level 2.8mmol/L (0.4-2.0) White Blood Count 5.5x10^3/uL (4.0-11.0) Red Blood Count 2.82x10^6/uL (3.50-5.40) Hemoglobin 8.0g/dL (12.0-15.5) Hematocrit 23.6% (36.0-47.0) Mean Corpuscular Volume 84fL (79-100) Mean Corpuscular Hemoglobin 28pg (25-35) Mean Corpuscular Hemoglobin Concent 34g/dL (31-37) Red Cell Distribution Width 14.4% (11.5-14.5) Platelet Count 210x10^3/uL (140-400) Neutrophils (%) (Auto) 89% (31-73) Lymphocytes (%) (Auto) 4% (24-48) Monocytes (%) (Auto) 7% (0-9) Eosinophils (%) (Auto) 0% (0-3) Basophils (%) (Auto) 0% (0-3) Neutrophils # (Auto) 4.9x10^3uL (1.8-7.7) Lymphocytes # (Auto) 0.2x10^3/uL (1.0-4.8) Monocytes # (Auto) 0.4x10^3/uL (0.0-1.1) Eosinophils # (Auto) 0.0x10^3/uL (0.0-0.7) Basophils # (Auto) 0.0x10^3/uL (0.0-0.2) Segmented Neutrophils % 34% (35-66) Band Neutrophils % 55% (0-9) Lymphocytes % 7% (24-48) Monocytes % 4% (0-10) Platelet Estimate Adequate (ADEQUATE) Large Platelets Occ Giant Platelets Occ Prothrombin Time 14.9SEC (11.7-14.0) Prothromb Time International Ratio 1.2 (0.8-1.1) Activated Partial Thromboplast Time 31SEC (24-38) Oxyhemoglobin 98.2% Methemoglobin 0.2% (0.0-1.9) Carbon Monoxide, Quantitative 0.0% (0.0-1.9) Test 01/11/17 05:55 01/11/17 06:00 White Blood Count 16.3x10^3/uL (4.0-11.0) Red Blood Count 2.70x10^6/uL (3.50-5.40) Hemoglobin 7.5g/dL (12.0-15.5) Hematocrit 22.6% (36.0-47.0) Mean Corpuscular Volume 84fL (79-100) Mean Corpuscular Hemoglobin 28pg (25-35) Mean Corpuscular Hemoglobin Concent 33g/dL (31-37) Red Cell Distribution Width 14.7% (11.5-14.5) Platelet Count 201x10^3/uL (140-400) Neutrophils (%) (Auto) 89% (31-73) Lymphocytes (%) (Auto) 5% (24-48) Monocytes (%) (Auto) 6% (0-9) Eosinophils (%) (Auto) 0% (0-3) Basophils (%) (Auto) 0% (0-3) Neutrophils # (Auto) 14.4x10^3uL (1.8-7.7) Lymphocytes # (Auto) 0.8x10^3/uL (1.0-4.8) Monocytes # (Auto) 1.0x10^3/uL (0.0-1.1) Eosinophils # (Auto) 0.0x10^3/uL (0.0-0.7) Basophils # (Auto) 0.0x10^3/uL (0.0-0.2) Sodium Level 140mmol/L (136-145) Potassium Level 4.4mmol/L (3.5-5.1) Chloride Level 109mmol/L (98-107) Carbon Dioxide Level 19mmol/L (21-32) Anion Gap 12 (6-14) Blood Urea Nitrogen 23mg/dL (7-20) Creatinine 1.4mg/dL (0.6-1.0) Estimated GFR (Cockcroft-Gault) 36.3 BUN/Creatinine Ratio 16 (6-20) Glucose Level 183mg/dL (70-99) Calcium Level 7.0mg/dL (8.5-10.1) Total Bilirubin 1.0mg/dL (0.2-1.0) Aspartate Amino Transf (AST/SGOT) 99U/L (15-37) Alanine Aminotransferase (ALT/SGPT) 66U/L (14-59) Alkaline Phosphatase 51U/L (46-116) Total Protein 4.6g/dL (6.4-8.2) Albumin 2.1g/dL (3.4-5.0) Albumin/Globulin Ratio 0.8 (1.0-1.7) O2 Saturation 98% (92-99) Arterial Blood pH 7.46 (7.35-7.45) Arterial Blood pCO2 at Patient Temp 24mmHg (35-46) Arterial Blood pO2 at Patient Temp 130mmHg (65-108) Arterial Blood HCO3 17mmol/L (21-28) Arterial Blood Base Excess -6mmol/L (-3-3) FiO2 30 Laboratory Tests Test 01/10/17 11:45 01/10/17 13:00 01/10/17 14:57 01/10/17 15:15 Hemoglobin 6.7g/dL (12.0-15.5) Hematocrit 19.9% (36.0-47.0) 18.4% (36.0-47.0) Mean Corpuscular Hemoglobin Concent 34g/dL (31-37) Prothrombin Time 49.6SEC (11.7-14.0) Prothromb Time International Ratio 5.9 (0.8-1.1) Activated Partial Thromboplast Time 61SEC (24-38) Fibrinogen < 60mg/dL (200-440) Platelet Count 20x10^3/uL (140-400) Sodium Level 134mmol/L (136-145) Potassium Level 4.5mmol/L (3.5-5.1) Chloride Level 105mmol/L (98-107) Carbon Dioxide Level 22mmol/L (21-32) Anion Gap 7 (6-14) Blood Urea Nitrogen 20mg/dL (7-20) Creatinine 1.2mg/dL (0.6-1.0) Estimated GFR (Cockcroft-Gault) 43.3 Glucose Level 318mg/dL (70-99) Calcium Level 6.7mg/dL (8.5-10.1) O2 Saturation 99% (92-99) Arterial Blood pH 7.48 (7.35-7.45) Arterial Blood pCO2 at Patient Temp 27mmHg (35-46) Arterial Blood pO2 at Patient Temp 450mmHg (65-108) Arterial Blood HCO3 19mmol/L (21-28) Arterial Blood Base Excess -4mmol/L (-3-3) FiO2 100 Test 01/10/17 15:52 01/10/17 19:25 01/10/17 23:17 01/11/17 05:55 Lactic Acid Level 2.8mmol/L (0.4-2.0) White Blood Count 5.5x10^3/uL (4.0-11.0) 16.3x10^3/uL (4.0-11.0) Red Blood Count 2.82x10^6/uL (3.50-5.40) 2.70x10^6/uL (3.50-5.40) Hemoglobin 8.0g/dL (12.0-15.5) 7.5g/dL (12.0-15.5) Hematocrit 23.6% (36.0-47.0) 22.6% (36.0-47.0) Mean Corpuscular Volume 84fL (79-100) 84fL (79-100) Mean Corpuscular Hemoglobin 28pg (25-35) 28pg (25-35) Mean Corpuscular Hemoglobin Concent 34g/dL (31-37) 33g/dL (31-37) Red Cell Distribution Width 14.4% (11.5-14.5) 14.7% (11.5-14.5) Platelet Count 210x10^3/uL (140-400) 201x10^3/uL (140-400) Neutrophils (%) (Auto) 89% (31-73) 89% (31-73) Lymphocytes (%) (Auto) 4% (24-48) 5% (24-48) Monocytes (%) (Auto) 7% (0-9) 6% (0-9) Eosinophils (%) (Auto) 0% (0-3) 0% (0-3) Basophils (%) (Auto) 0% (0-3) 0% (0-3) Neutrophils # (Auto) 4.9x10^3uL (1.8-7.7) 14.4x10^3uL (1.8-7.7) Lymphocytes # (Auto) 0.2x10^3/uL (1.0-4.8) 0.8x10^3/uL (1.0-4.8) Monocytes # (Auto) 0.4x10^3/uL (0.0-1.1) 1.0x10^3/uL (0.0-1.1) Eosinophils # (Auto) 0.0x10^3/uL (0.0-0.7) 0.0x10^3/uL (0.0-0.7) Basophils # (Auto) 0.0x10^3/uL (0.0-0.2) 0.0x10^3/uL (0.0-0.2) Segmented Neutrophils % 34% (35-66) Band Neutrophils % 55% (0-9) Lymphocytes % 7% (24-48) Monocytes % 4% (0-10) Platelet Estimate Adequate (ADEQUATE) Large Platelets Occ Giant Platelets Occ Prothrombin Time 14.9SEC (11.7-14.0) Prothromb Time International Ratio 1.2 (0.8-1.1) Activated Partial Thromboplast Time 31SEC (24-38) O2 Saturation 98% (92-99) Arterial Blood pH 7.46 (7.35-7.45) Arterial Blood pCO2 at Patient Temp 28mmHg (35-46) Arterial Blood pO2 at Patient Temp 167mmHg (65-108) Arterial Blood HCO3 20mmol/L (21-28) Arterial Blood Base Excess -4mmol/L (-3-3) Oxyhemoglobin 98.2% Methemoglobin 0.2% (0.0-1.9) Carbon Monoxide, Quantitative 0.0% (0.0-1.9) FiO2 40 Sodium Level 140mmol/L (136-145) Potassium Level 4.4mmol/L (3.5-5.1) Chloride Level 109mmol/L (98-107) Carbon Dioxide Level 19mmol/L (21-32) Anion Gap 12 (6-14) Blood Urea Nitrogen 23mg/dL (7-20) Creatinine 1.4mg/dL (0.6-1.0) Estimated GFR (Cockcroft-Gault) 36.3 BUN/Creatinine Ratio 16 (6-20) Glucose Level 183mg/dL (70-99) Calcium Level 7.0mg/dL (8.5-10.1) Total Bilirubin 1.0mg/dL (0.2-1.0) Aspartate Amino Transf (AST/SGOT) 99U/L (15-37) Alanine Aminotransferase (ALT/SGPT) 66U/L (14-59) Alkaline Phosphatase 51U/L (46-116) Total Protein 4.6g/dL (6.4-8.2) Albumin 2.1g/dL (3.4-5.0) Albumin/Globulin Ratio 0.8 (1.0-1.7) Test 01/11/17 06:00 O2 Saturation 98% (92-99) Arterial Blood pH 7.46 (7.35-7.45) Arterial Blood pCO2 at Patient Temp 24mmHg (35-46) Arterial Blood pO2 at Patient Temp 130mmHg (65-108) Arterial Blood HCO3 17mmol/L (21-28) Arterial Blood Base Excess -6mmol/L (-3-3) FiO2 30 Medications Current Medications Sodium Chloride (Iv Sodium Chloride 0.45%) 1,000 ml @ 80 mls/hr [id number] IV Last administered on 01/08/17 22:17; Start 01/08/17 at 21:03; Stop 01/09/17 at 09: 23; Status DC Ondansetron HCl (Zofran) 4 mg PRN Q6HRS PRN IV NAUSEA/VOMITING Last administered on 01/09/17 15:51; Start 01/08/17 at 21:15; Stop 01/10/17 at 17:41; Status DC Prochlorperazine Edisylate (Compazine) 10 mg PRN Q6HRS PRN IV NAUSEA/VOMITING; Start 01/08/17 at 21:15 Prochlorperazine (Compazine) 25 mg PRN Q12HR PRN [place] NAUSEA/VOMITING; Start 01/08 at 21:15 Al Hydroxide/Mg Hydroxide (Mylanta Plus Xs) 30 ml PRN Q3HRS PRN PO HEARTBURN / GAS; Start 01/08/17 at 21:15 Calcium Carbonate/ Glycine (Tums) 500 mg PRN Q3HRS PRN PO UPSET STOMACH; Start 01/08/17 at 21:15; Stop 01/08/17 at 21:20; Status DC Oxycodone HCl (Roxicodone) 5 mg PRN Q3HRS PRN PO BREAKTHROUGH PAIN Last administered on 01/09/17 20:54; Start 01/08/17 at 21:15 Morphine Sulfate 1 mg PRN Q2HR PRN IV PAIN Last administered on 01/10/17 08:51 ; Start 01/08/17 at 21:15; Stop 01/11/17 at 08:13; Status DC Acetaminophen (Tylenol) 650 mg PRN Q6HRS PRN PO MILD PAIN / TEMP; Start at 21:15 Docusate Sodium (Colace) 100 mg BID PO Last administered on 01/09/17 20:54; Start 01/08/17 at 22:00 Magnesium Hydroxide (Milk Of Magnesia) 2,400 mg PRN Q12HR PRN PO CONSTIPATION; Start 01/08/17 at 21:15 Bisacodyl (Dulcolax Supp) 10 mg PRN DAILY PRN [place] CONSTIPATION; Start 01/08/17 at 21:15 Enoxaparin Sodium (Lovenox 40mg Syringe) 40 mg Q24H SQ ; Start 01/08/17 at 22:00 ; Stop 01/08/17 at 22:00; Status DC Pantoprazole Sodium (Protonix Vial) 40 mg DAILYAC IVP Last administered on 09:24; Start 01/09/17 at 07:30 Enoxaparin Sodium 30 mg 30 mg Q24H SQ Last administered on 01/08/17 22:20; Start 01/08/17 at 22:00; Stop 01/09/17 at 09:24; Status DC Cefoxitin Sodium (Mefoxin 2gm Ivpb For Omni) 100 ml @ 200 mls/hr 1X PERIOP IV ; Start 01/09/17 at 08:45; Stop 01/10/17 at 11:49; Status DC Cetirizine HCl (Zyrtec) 10 mg DAILY PO Last administered on 01/09/17 10:27; Start 01/09/17 at 10:30 Guaifenesin (Mucinex) 600 mg PRN Q8HRS PRN PO CONGESTION; Start 01/09/17 at 09: 30 Levothyroxine Sodium (Synthroid) 50 mcg DAILYAC PO Last administered on 10:27; Start 01/09/17 at 10:30; Stop 01/11/17 at 08:19; Status DC Tramadol HCl (Ultram) 50 mg PRN Q6HRS PRN PO PAIN; Start 01/09/17 at 09:30 Non-Formulary Medication 2 puff QID INH ; Start 01/09/17 at 13:00; Status UNV Metoprolol Tartrate (Lopressor) 25 mg BID PO Last administered on 01/09/17 20: 54; Start 01/09/17 at 10:30 Fluticasone Propionate 2 spray 2 spray DAILY NS Last administered on 01/09/17 10:28; Start 01/09/17 at 10:30; Stop 01/09/17 at 13:10; Status DC Amino Acids/ Electrolytes/ Dextrose (Clinimix E 4.25%-5% Solution) 1,000 ml @ 80 mls/hr [id number] IV Last administered on 01/10/17 01:00; Start 01/09/17 at 10: 30 Enoxaparin Sodium (Lovenox 30mg Syringe) 30 mg Q24H SQ ; Start 01/09/17 at 10:00 ; Stop 01/09/17 at 10:00; Status DC Enoxaparin Sodium (Lovenox 30mg Syringe) 30 mg 1X ONCE SQ ; Start 01/09/17 at 10 :00; Stop 01/09/17 at 10:00; Status DC Enoxaparin Sodium (Lovenox 30mg Syringe) 30 mg Q24H SQ ; Start 01/10/17 at 21:00 ; Stop 01/11/17 at 09:42; Status DC Albuterol Sulfate (Ventolin Neb Soln) 2.5 mg RTQID NEB Last administered on 01/11t 07:43; Start 01/09/17 at 12:00 Fluticasone Propionate (Flonase) 2 spray DAILY NS ; Start 01/09/17 at 13:10 Ondansetron HCl (Zofran) 4 mg PRN Q6HRS PRN IV NAUSEA/VOMITING; Start 01/10/17 at 07:30; Stop 01/10/17 at 18:00; Status DC Fentanyl Citrate (Fentanyl 2ml Vial) 25 mcg PRN Q5MIN PRN IV MILD PAIN; Start 01/10/17 at 07:30; Stop 01/10/17 at 18:00; Status DC Fentanyl Citrate 50 mcg 50 mcg PRN Q5MIN PRN IV MODERATE PAIN; Start 01/10/17 at 07:30; Stop 01/10/17 at 18:00; Status DC Lactated Ringer's (Iv Lactated Ringers) 1,000 ml @ 30 mls/hr Q24H IV ; Start at 07:28; Stop 01/10/17 at 19:27; Status DC Prochlorperazine Edisylate (Compazine) 5 mg PACU PRN PRN IV NAUSEA, MRX1; Start 01/10/17 at 07:30; Stop 01/10/17 at 18:00; Status DC Desflurane (Suprane) 90 ml STK-MED ONCE IH ; Start 01/10/17 at 09:03; Stop at 09:04; Status DC Fentanyl Citrate (Fentanyl 2ml Vial) 100 mcg STK-MED ONCE .ROUTE ; Start at 09:03; Stop 01/10/17 at 09:04; Status DC Rocuronium [place] 50 mg 50 mg STK-MED ONCE .ROUTE ; Start 01/10/17 at 09:03; Stop 01/10/17 at 09:04; Status DC Propofol (Diprivan) 20 ml @ As Directed STK-MED ONCE IV ; Start 01/10/17 at 09:04 ; Stop 01/10/17 at 09:05; Status DC Ondansetron HCl (Zofran) 4 mg STK-MED ONCE .ROUTE ; Start 01/10/17 at 09:04; Stop 01/10/17 at 09:05; Status DC Dexamethasone Sodium Phosphate (Decadron) 20 mg STK-MED ONCE .ROUTE ; Start 01/10 at 09:04; Stop 01/10/17 at 09:05; Status DC Lidocaine HCl (Lidocaine HCl 2% Abboject) 100 mg STK-MED ONCE .ROUTE ; Start 01/10/17 at 09:04; Stop 01/10/17 at 09:05; Status DC Phenylephrine HCl (Rodrigue-Synephrine Inj) 10 mg STK-MED ONCE .ROUTE ; Start at 09:27; Stop 01/10/17 at 09:28; Status DC Fentanyl Citrate (Fentanyl 5ml Vial) 250 mcg STK-MED ONCE .ROUTE ; Start at 10:17; Stop 01/10/17 at 10:18; Status DC Rocuronium [place] 50 mg 50 mg STK-MED ONCE .ROUTE ; Start 01/10/17 at 10:26; Stop 01/10/17 at 10:27; Status DC Albumin Human (Plasmanate) 500 ml @ As Directed STK-MED ONCE IV ; Start at 11:32; Stop 01/10/17 at 11:33; Status DC Lorazepam (Ativan) 2 mg STK-MED ONCE .ROUTE ; Start 01/10/17 at 11:38; Stop at 11:39; Status DC Cellulose 1 each 1 each STK-MED ONCE .ROUTE Last administered on 01/10/17t 10:23 ; Start 01/10/17 at 12:09; Stop 01/10/17 at 12:10; Status DC Albumin Human (Plasmanate) 500 ml @ As Directed STK-MED ONCE IV ; Start at 12:14; Stop 01/10/17 at 12:15; Status DC Phenylephrine HCl (Rodrigue-Synephrine Inj) 10 mg STK-MED ONCE .ROUTE ; Start at 12:14; Stop 01/10/17 at 12:15; Status DC Cellulose 1 each STK-MED ONCE .ROUTE Last administered on 01/10/17 10:23; Start 01/10/17 at 12:46; Stop 01/10/17 at 12:47; Status DC Lorazepam (Ativan) 2 mg STK-MED ONCE .ROUTE ; Start 01/10/17 at 12:47; Stop at 12:48; Status DC Phenylephrine HCl (Rodrigue-Synephrine Inj) 10 mg STK-MED ONCE .ROUTE ; Start at 12:55; Stop 01/10/17 at 12:56; Status DC Vasopressin (Vasostrict) 20 unit STK-MED ONCE .ROUTE ; Start 01/10/17 at 12:58; Stop 01/10/17 at 12:59; Status DC Norepinephrine Bitartrate (Levophed Vial) 4 mg STK-MED ONCE IV ; Start 01/10/17 at 13:00; Stop 01/10/17 at 13:01; Status DC Norepinephrine Bitartrate (Levophed Vial) 4 mg STK-MED ONCE IV ; Start 01/10/17 at 13:00; Stop 01/10/17 at 13:01; Status DC Rocuronium [place] (Zemuron) 50 mg STK-MED ONCE .ROUTE ; Start 01/10/17 at 13:30 ; Stop 01/10/17 at 13:31; Status DC Famotidine (Pepcid) 20 mg QHS IVP ; Start 01/10/17 at 21:00; Stop 01/11/17 at 08: 15; Status DC Sodium Chloride 3 ml 3 ml QSHIFT PRN IV AFTER MEDS AND BLOOD DRAWS; Start at 13:45 Lactated Ringer's (Iv Lactated Ringers) 1,000 ml @ 100 mls/hr Q10H IV Last administered on 01/10/17 22:45; Start 01/10/17 at 13:43 Morphine Sulfate 1 mg PRN Q1HR PRN IV PAIN Last administered on 01/10/17 17:41 ; Start 01/10/17 at 13:45 Ondansetron HCl (Zofran) 4 mg PRN Q6HRS PRN IV NAUESA, 1ST CHOICE; Start at 13:45 Cellulose 2 each STK-MED ONCE TP Last administered on 01/10/17 10:23; Start 01/10/17 at 10:23; Stop 01/10/17 at 14:25; Status DC Lorazepam (Ativan) 2 mg STK-MED ONCE .ROUTE ; Start 01/10/17 at 20:59; Stop at 21:00; Status DC Rocuronium [place] 50 mg 50 mg STK-MED ONCE .ROUTE ; Start 01/10/17 at 21:30; Stop 01/10/17 at 21:31; Status DC Cefoxitin Sodium (Mefoxin 2gm Ivpb For Omni) 100 ml @ As Directed STK-MED ONCE IV ; Start 01/10/17 at 21:45; Stop 01/10/17 at 21:46; Status DC Cellulose 1 each STK-MED ONCE .ROUTE Last administered on 01/10/17 21:47; Start 01/10/17 at 21:48; Stop 01/10/17 at 21:49; Status DC Cellulose 2 each STK-MED ONCE TP Last administered on 01/10/17 21:47; Start 01/10/17 at 21:47; Stop 01/10/17 at 22:14; Status DC Sodium Chloride 3 ml 3 ml QSHIFT PRN IV AFTER MEDS AND BLOOD DRAWS; Start at 22:30 Fentanyl Citrate 30 ml @ 0 mls/hr CONT PRN IV PROTOCOL; Start 01/10/17 at 22:30 Propofol (Diprivan) 100 ml @ 0 mls/hr CONT PRN IV PER PROTOCOL; Start 01/10/17 at 22:30 Chlorhexidine Gluconate 15 ml 15 ml BID MM Last administered on 01/11/17 09:25 ; Start 01/11/17 at 09:00 Sodium Chloride 1,000 ml @ 1,000 mls/hr 1X ONCE IV Last administered on 02:30; Start 01/11/17 at 02:30; Stop 01/11/17 at 03:29; Status DC Levothyroxine Sodium 25 mcg/ Sodium Chloride 5 ml @ 100 mls/hr DAILY IVP Last administered on 01/11/17t 09:25; Start 01/11/17 at 09:00 Sodium Chloride (Iv Sodium Chloride 0.9% 500ml Bag) 500 ml @ 500 mls/hr 1X ONCE IV ; Start 01/11/17 at 09:45; Stop 01/11/17 at 10:44 Heparin Sodium (Porcine) 5,000 unit Q8HRS SQ ; Start 01/11/17 at 14:00 Active Scripts Active Reported Pred Forte (Prednisolone Acetate) 1 Ml Drops.susp 1 Ml OU BID PRN Visine Allergy Relief Drop (Tetrahydrozoline Hcl/Zn Sulf) 15 Ml Drops 1 Drop OU PRN Thera Tears (Carboxymethylcellulose Sodium) 15 Ml Drops 1 Drop OU PRN Jaime-128 (Sodium Chloride) 15 Ml Drops 1 Drop OU PRN Tramadol Hcl 100 Mg Tbmp.24hr 100 Mg PO Q6H PRN Tramadol Hcl 50 Mg Tablet 50 Mg PO Q6H PRN Zyrtec (Cetirizine Hcl) 10 Mg Tablet 10 Mg PO DAILY Nasacort (Triamcinolone Acetonide) 10.8 Ml [place] 2 [place] NS DAILY Proair Hfa Inhaler (Albuterol Sulfate) 8.5 Gm Hfa.aer.ad 2 Puff INH QID Mucinex (Guaifenesin) 600 Mg Tablet.er 600 Mg PO Q8HRS PRN Levothyroxine Sodium 50 Mcg Tablet 50 Mcg PO DAILYAC Dyazide 37.5-25 Capsule (Triamterene/Hydrochlorothiazid) 1 Each Capsule 1 Cap PO DAILY Bystolic (Nebivolol) 5 Mg Tablet 5 Mg PO DAILY Vitals/I & O Vital Sign - Last 24 Hours 01/10/17 01/10/17 01/10/17 01/10/17 14:00 14:00 14:00 14:12 Temp 97.5 97.5 97.5 97.5 Pulse 90 87 Resp 14 B/P 90/36 93/45 Pulse Ox 100 100 O2 Delivery Ventilator Mechanical Ventilator Ventilator 01/10/17 01/10/17 01/10/17 01/10/17 14:15 14:30 14:45 15:00 Temp 97.4 97.4 97.2 97.4 97.4 97.2 Pulse 86 86 84 86 Resp 14 14 14 14 B/P 88/36 100/38 108/38 104/42 Pulse Ox 100 100 100 100 O2 Delivery Ventilator Ventilator Ventilator Ventilator 01/10/17 01/10/17 01/10/17 01/10/17 15:15 15:30 15:45 15:58 Temp 97.0 96.5 96.5 97.0 96.5 96.5 Pulse 82 84 88 Resp 14 14 14 B/P 138/50 132/48 116/46 Pulse Ox 100 100 100 100 O2 Delivery Ventilator Ventilator Ventilator Ventilator 01/10/17 01/10/17 01/10/17 01/10/17 16:00 16:00 16:00 16:15 Temp 96.3 96.3 Pulse 90 82 Resp 14 14 B/P 102/38 168/56 Pulse Ox 100 100 O2 Delivery Ventilator Mechanical Ventilator Ventilator 01/10/17 01/10/17 01/10/17 01/10/17 16:30 16:45 17:00 17:45 Temp 96.6 97.1 97.6 96.6 97.1 97.6 Pulse 78 82 91 Resp 14 14 14 14 B/P 174/58 187/86 185/61 178/64 Pulse Ox 100 100 100 100 O2 Delivery Ventilator Ventilator Ventilator Ventilator 01/10/17 01/10/17 01/10/17 01/10/17 17:56 18:00 18:30 18:45 Temp 97.5 97.5 97.6 97.5 97.5 97.6 Pulse 90 93 100 Resp 14 14 14 B/P 165/61 155/60 160/64 Pulse Ox 100 100 100 100 O2 Delivery Ventilator Ventilator Ventilator Ventilator 01/10/17 01/10/17 01/10/17 01/10/17 19:00 19:27 20:00 20:00 Pulse 110 Resp 14 B/P 140/62 Pulse Ox 100 100 O2 Delivery Ventilator Ventilator Mechanical Ventilator 01/10/17 01/10/17 01/10/17 01/10/17 20:00 21:00 21:19 22:35 Temp 99.5 99.5 Pulse 114 117 110 Resp 14 14 14 B/P 114/50 111/49 94/40 Pulse Ox 100 100 100 100 O2 Delivery Ventilator Ventilator Ventilator Ventilator 01/10/17 01/10/17 01/10/17 01/10/17 22:50 23:00 23:25 23:51 Pulse 110 112 Resp 14 14 B/P 96/46 96/44 Pulse Ox 100 100 100 O2 Delivery Ventilator Ventilator Ventilator Ventilator 01/11/17 01/11/17 01/11/17 01/11/17 00:00 00:00 00:00 01:00 Temp 98.1 98.1 Pulse 113 118 Resp 12 12 B/P 97/43 105/50 Pulse Ox 100 100 O2 Delivery Ventilator Mechanical Ventilator Ventilator 01/11/17 01/11/17 01/11/17 01/11/17 01:23 02:00 03:00 03:22 Pulse 115 102 Resp 12 12 B/P 102/49 116/45 Pulse Ox 100 100 100 100 O2 Delivery Ventilator Ventilator Ventilator Ventilator 01/11/17 01/11/17 01/11/17 01/11/17 04:00 04:00 04:00 05:00 Temp 97.6 97.6 Pulse 110 114 Resp 12 12 B/P 97/43 100/45 Pulse Ox 100 100 O2 Delivery Ventilator Mechanical Ventilator Ventilator 01/11/17 01/11/17 01/11/17 05:19 06:00 07:44 Pulse 116 Resp 12 B/P 104/44 Pulse Ox 100 100 100 O2 Delivery Ventilator Ventilator Ventilator Intake and Output 01/10/17 01/10/17 01/11/17 14:59 22:59 06:59 Intake Total 4800 ml 2760 ml Output Total 2550 ml 2195 ml 620 ml Balance 2250 ml 565 ml -620 ml THIERRY SAN MD Jan 11, 2017 10:15
--- NOTE | 2017-01-11 10:32 | RAD ---
KUB Clinical indications: Status post laparotomy. Findings: Midline surgical clips are seen. NG tube is in place and tip is seen within the distal body of the stomach. Drainage catheters are present. No obstructive bowel pattern or postoperative functional ileus is seen. No significant fecal retention is seen. Small radiopaque punctate stone of the lower pole of the right kidney is seen. IMPRESSION: No bowel obstruction or postoperative functional ileus.
[2017-01-11 10:53] LABS: MAGNESIUM 1.6 mg/dL (1.8-2.4)
[2017-01-11] MEDS ORDERED: NOREPINEPHRINE VIAL 8 MG in IV NORMAL SALINE 250ML 250 ML IV PRN (11:15)
--- NOTE | 2017-01-11 11:28 | PDOC ---
G I PROGRESS NOTE Reason for Follow-up Pancreatic cancer/coagulopathy Subjective Intubated/sedated Physical Exam Lungs decreased BS CV S1 S2 tachy ABD incisions intact/ileostomy noted, -BS Review of Relevant I have reviewed the following items [place] (where applicable) has been applied. Labs Laboratory Tests Test 01/10/17 05:12 01/10/17 11:45 01/10/17 13:00 01/10/17 14:57 White Blood Count 7.7x10^3/uL (4.0-11.0) Red Blood Count 4.61x10^6/uL (3.50-5.40) Hemoglobin 13.2g/dL (12.0-15.5) 6.7g/dL (12.0-15.5) Hematocrit 40.3% (36.0-47.0) 19.9% (36.0-47.0) 18.4% (36.0-47.0) Mean Corpuscular Volume 87fL (79-100) Mean Corpuscular Hemoglobin 29pg (25-35) Mean Corpuscular Hemoglobin Concent 33g/dL (31-37) 34g/dL (31-37) Red Cell Distribution Width 14.4% (11.5-14.5) Platelet Count 285x10^3/uL (140-400) 20x10^3/uL (140-400) Neutrophils (%) (Auto) 68% (31-73) Lymphocytes (%) (Auto) 18% (24-48) Monocytes (%) (Auto) 13% (0-9) Eosinophils (%) (Auto) 1% (0-3) Basophils (%) (Auto) 0% (0-3) Neutrophils # (Auto) 5.2x10^3uL (1.8-7.7) Lymphocytes # (Auto) 1.4x10^3/uL (1.0-4.8) Monocytes # (Auto) 1.0x10^3/uL (0.0-1.1) Eosinophils # (Auto) 0.0x10^3/uL (0.0-0.7) Basophils # (Auto) 0.0x10^3/uL (0.0-0.2) Prothrombin Time 49.6SEC (11.7-14.0) Prothromb Time International Ratio 5.9 (0.8-1.1) Activated Partial Thromboplast Time 61SEC (24-38) Fibrinogen < 60mg/dL (200-440) Sodium Level 134mmol/L (136-145) Potassium Level 4.5mmol/L (3.5-5.1) Chloride Level 105mmol/L (98-107) Carbon Dioxide Level 22mmol/L (21-32) Anion Gap 7 (6-14) Blood Urea Nitrogen 20mg/dL (7-20) Creatinine 1.2mg/dL (0.6-1.0) Estimated GFR (Cockcroft-Gault) 43.3 Glucose Level 318mg/dL (70-99) Calcium Level 6.7mg/dL (8.5-10.1) Test 01/10/17 15:15 01/10/17 15:52 01/10/17 19:25 01/10/17 23:17 O2 Saturation 99% (92-99) 98% (92-99) Arterial Blood pH 7.48 (7.35-7.45) 7.46 (7.35-7.45) Arterial Blood pCO2 at Patient Temp 27mmHg (35-46) 28mmHg (35-46) Arterial Blood pO2 at Patient Temp 450mmHg (65-108) 167mmHg (65-108) Arterial Blood HCO3 19mmol/L (21-28) 20mmol/L (21-28) Arterial Blood Base Excess -4mmol/L (-3-3) -4mmol/L (-3-3) FiO2 100 40 Lactic Acid Level 2.8mmol/L (0.4-2.0) White Blood Count 5.5x10^3/uL (4.0-11.0) Red Blood Count 2.82x10^6/uL (3.50-5.40) Hemoglobin 8.0g/dL (12.0-15.5) Hematocrit 23.6% (36.0-47.0) Mean Corpuscular Volume 84fL (79-100) Mean Corpuscular Hemoglobin 28pg (25-35) Mean Corpuscular Hemoglobin Concent 34g/dL (31-37) Red Cell Distribution Width 14.4% (11.5-14.5) Platelet Count 210x10^3/uL (140-400) Neutrophils (%) (Auto) 89% (31-73) Lymphocytes (%) (Auto) 4% (24-48) Monocytes (%) (Auto) 7% (0-9) Eosinophils (%) (Auto) 0% (0-3) Basophils (%) (Auto) 0% (0-3) Neutrophils # (Auto) 4.9x10^3uL (1.8-7.7) Lymphocytes # (Auto) 0.2x10^3/uL (1.0-4.8) Monocytes # (Auto) 0.4x10^3/uL (0.0-1.1) Eosinophils # (Auto) 0.0x10^3/uL (0.0-0.7) Basophils # (Auto) 0.0x10^3/uL (0.0-0.2) Segmented Neutrophils % 34% (35-66) Band Neutrophils % 55% (0-9) Lymphocytes % 7% (24-48) Monocytes % 4% (0-10) Platelet Estimate Adequate (ADEQUATE) Large Platelets Occ Giant Platelets Occ Prothrombin Time 14.9SEC (11.7-14.0) Prothromb Time International Ratio 1.2 (0.8-1.1) Activated Partial Thromboplast Time 31SEC (24-38) Oxyhemoglobin 98.2% Methemoglobin 0.2% (0.0-1.9) Carbon Monoxide, Quantitative 0.0% (0.0-1.9) Test 01/11/17 05:00 01/11/17 05:55 01/11/17 06:00 Phosphorus Level 4.0mg/dL (2.6-4.7) Magnesium Level 1.6mg/dL (1.8-2.4) White Blood Count 16.3x10^3/uL (4.0-11.0) Red Blood Count 2.70x10^6/uL (3.50-5.40) Hemoglobin 7.5g/dL (12.0-15.5) Hematocrit 22.6% (36.0-47.0) Mean Corpuscular Volume 84fL (79-100) Mean Corpuscular Hemoglobin 28pg (25-35) Mean Corpuscular Hemoglobin Concent 33g/dL (31-37) Red Cell Distribution Width 14.7% (11.5-14.5) Platelet Count 201x10^3/uL (140-400) Neutrophils (%) (Auto) 89% (31-73) Lymphocytes (%) (Auto) 5% (24-48) Monocytes (%) (Auto) 6% (0-9) Eosinophils (%) (Auto) 0% (0-3) Basophils (%) (Auto) 0% (0-3) Neutrophils # (Auto) 14.4x10^3uL (1.8-7.7) Lymphocytes # (Auto) 0.8x10^3/uL (1.0-4.8) Monocytes # (Auto) 1.0x10^3/uL (0.0-1.1) Eosinophils # (Auto) 0.0x10^3/uL (0.0-0.7) Basophils # (Auto) 0.0x10^3/uL (0.0-0.2) Sodium Level 140mmol/L (136-145) Potassium Level 4.4mmol/L (3.5-5.1) Chloride Level 109mmol/L (98-107) Carbon Dioxide Level 19mmol/L (21-32) Anion Gap 12 (6-14) Blood Urea Nitrogen 23mg/dL (7-20) Creatinine 1.4mg/dL (0.6-1.0) Estimated GFR (Cockcroft-Gault) 36.3 BUN/Creatinine Ratio 16 (6-20) Glucose Level 183mg/dL (70-99) Calcium Level 7.0mg/dL (8.5-10.1) Total Bilirubin 1.0mg/dL (0.2-1.0) Aspartate Amino Transf (AST/SGOT) 99U/L (15-37) Alanine Aminotransferase (ALT/SGPT) 66U/L (14-59) Alkaline Phosphatase 51U/L (46-116) Total Protein 4.6g/dL (6.4-8.2) Albumin 2.1g/dL (3.4-5.0) Albumin/Globulin Ratio 0.8 (1.0-1.7) O2 Saturation 98% (92-99) Arterial Blood pH 7.46 (7.35-7.45) Arterial Blood pCO2 at Patient Temp 24mmHg (35-46) Arterial Blood pO2 at Patient Temp 130mmHg (65-108) Arterial Blood HCO3 17mmol/L (21-28) Arterial Blood Base Excess -6mmol/L (-3-3) FiO2 30 Laboratory Tests Test 01/10/17 11:45 01/10/17 13:00 01/10/17 14:57 01/10/17 15:15 Hemoglobin 6.7g/dL (12.0-15.5) Hematocrit 19.9% (36.0-47.0) 18.4% (36.0-47.0) Mean Corpuscular Hemoglobin Concent 34g/dL (31-37) Prothrombin Time 49.6SEC (11.7-14.0) Prothromb Time International Ratio 5.9 (0.8-1.1) Activated Partial Thromboplast Time 61SEC (24-38) Fibrinogen < 60mg/dL (200-440) Platelet Count 20x10^3/uL (140-400) Sodium Level 134mmol/L (136-145) Potassium Level 4.5mmol/L (3.5-5.1) Chloride Level 105mmol/L (98-107) Carbon Dioxide Level 22mmol/L (21-32) Anion Gap 7 (6-14) Blood Urea Nitrogen 20mg/dL (7-20) Creatinine 1.2mg/dL (0.6-1.0) Estimated GFR (Cockcroft-Gault) 43.3 Glucose Level 318mg/dL (70-99) Calcium Level 6.7mg/dL (8.5-10.1) O2 Saturation 99% (92-99) Arterial Blood pH 7.48 (7.35-7.45) Arterial Blood pCO2 at Patient Temp 27mmHg (35-46) Arterial Blood pO2 at Patient Temp 450mmHg (65-108) Arterial Blood HCO3 19mmol/L (21-28) Arterial Blood Base Excess -4mmol/L (-3-3) FiO2 100 Test 01/10/17 15:52 01/10/17 19:25 01/10/17 23:17 01/11/17 05:00 Lactic Acid Level 2.8mmol/L (0.4-2.0) White Blood Count 5.5x10^3/uL (4.0-11.0) Red Blood Count 2.82x10^6/uL (3.50-5.40) Hemoglobin 8.0g/dL (12.0-15.5) Hematocrit 23.6% (36.0-47.0) Mean Corpuscular Volume 84fL (79-100) Mean Corpuscular Hemoglobin 28pg (25-35) Mean Corpuscular Hemoglobin Concent 34g/dL (31-37) Red Cell Distribution Width 14.4% (11.5-14.5) Platelet Count 210x10^3/uL (140-400) Neutrophils (%) (Auto) 89% (31-73) Lymphocytes (%) (Auto) 4% (24-48) Monocytes (%) (Auto) 7% (0-9) Eosinophils (%) (Auto) 0% (0-3) Basophils (%) (Auto) 0% (0-3) Neutrophils # (Auto) 4.9x10^3uL (1.8-7.7) Lymphocytes # (Auto) 0.2x10^3/uL (1.0-4.8) Monocytes # (Auto) 0.4x10^3/uL (0.0-1.1) Eosinophils # (Auto) 0.0x10^3/uL (0.0-0.7) Basophils # (Auto) 0.0x10^3/uL (0.0-0.2) Segmented Neutrophils % 34% (35-66) Band Neutrophils % 55% (0-9) Lymphocytes % 7% (24-48) Monocytes % 4% (0-10) Platelet Estimate Adequate (ADEQUATE) Large Platelets Occ Giant Platelets Occ Prothrombin Time 14.9SEC (11.7-14.0) Prothromb Time International Ratio 1.2 (0.8-1.1) Activated Partial Thromboplast Time 31SEC (24-38) O2 Saturation 98% (92-99) Arterial Blood pH 7.46 (7.35-7.45) Arterial Blood pCO2 at Patient Temp 28mmHg (35-46) Arterial Blood pO2 at Patient Temp 167mmHg (65-108) Arterial Blood HCO3 20mmol/L (21-28) Arterial Blood Base Excess -4mmol/L (-3-3) Oxyhemoglobin 98.2% Methemoglobin 0.2% (0.0-1.9) Carbon Monoxide, Quantitative 0.0% (0.0-1.9) FiO2 40 Phosphorus Level 4.0mg/dL (2.6-4.7) Magnesium Level 1.6mg/dL (1.8-2.4) Test 01/11/17 05:55 01/11/17 06:00 White Blood Count 16.3x10^3/uL (4.0-11.0) Red Blood Count 2.70x10^6/uL (3.50-5.40) Hemoglobin 7.5g/dL (12.0-15.5) Hematocrit 22.6% (36.0-47.0) Mean Corpuscular Volume 84fL (79-100) Mean Corpuscular Hemoglobin 28pg (25-35) Mean Corpuscular Hemoglobin Concent 33g/dL (31-37) Red Cell Distribution Width 14.7% (11.5-14.5) Platelet Count 201x10^3/uL (140-400) Neutrophils (%) (Auto) 89% (31-73) Lymphocytes (%) (Auto) 5% (24-48) Monocytes (%) (Auto) 6% (0-9) Eosinophils (%) (Auto) 0% (0-3) Basophils (%) (Auto) 0% (0-3) Neutrophils # (Auto) 14.4x10^3uL (1.8-7.7) Lymphocytes # (Auto) 0.8x10^3/uL (1.0-4.8) Monocytes # (Auto) 1.0x10^3/uL (0.0-1.1) Eosinophils # (Auto) 0.0x10^3/uL (0.0-0.7) Basophils # (Auto) 0.0x10^3/uL (0.0-0.2) Sodium Level 140mmol/L (136-145) Potassium Level 4.4mmol/L (3.5-5.1) Chloride Level 109mmol/L (98-107) Carbon Dioxide Level 19mmol/L (21-32) Anion Gap 12 (6-14) Blood Urea Nitrogen 23mg/dL (7-20) Creatinine 1.4mg/dL (0.6-1.0) Estimated GFR (Cockcroft-Gault) 36.3 BUN/Creatinine Ratio 16 (6-20) Glucose Level 183mg/dL (70-99) Calcium Level 7.0mg/dL (8.5-10.1) Total Bilirubin 1.0mg/dL (0.2-1.0) Aspartate Amino Transf (AST/SGOT) 99U/L (15-37) Alanine Aminotransferase (ALT/SGPT) 66U/L (14-59) Alkaline Phosphatase 51U/L (46-116) Total Protein 4.6g/dL (6.4-8.2) Albumin 2.1g/dL (3.4-5.0) Albumin/Globulin Ratio 0.8 (1.0-1.7) O2 Saturation 98% (92-99) Arterial Blood pH 7.46 (7.35-7.45) Arterial Blood pCO2 at Patient Temp 24mmHg (35-46) Arterial Blood pO2 at Patient Temp 130mmHg (65-108) Arterial Blood HCO3 17mmol/L (21-28) Arterial Blood Base Excess -6mmol/L (-3-3) FiO2 30 Medications Current Medications Sodium Chloride (Iv Sodium Chloride 0.45%) 1,000 ml @ 80 mls/hr [id number] IV Last administered on 01/08/17 22:17; Start 01/08/17 at 21:03; Stop 01/09/17 at 09: 23; Status DC Ondansetron HCl (Zofran) 4 mg PRN Q6HRS PRN IV NAUSEA/VOMITING Last administered on 01/09/17 15:51; Start 01/08/17 at 21:15; Stop 01/10/17 at 17:41; Status DC Prochlorperazine Edisylate (Compazine) 10 mg PRN Q6HRS PRN IV NAUSEA/VOMITING; Start 01/08/17 at 21:15 Prochlorperazine (Compazine) 25 mg PRN Q12HR PRN HI NAUSEA/VOMITING; Start 01/08 at 21:15 Al Hydroxide/Mg Hydroxide (Mylanta Plus Xs) 30 ml PRN Q3HRS PRN PO HEARTBURN / GAS; Start 01/08/17 at 21:15 Calcium Carbonate/ Glycine (Tums) 500 mg PRN Q3HRS PRN PO UPSET STOMACH; Start 01/08/17 at 21:15; Stop 01/08/17 at 21:20; Status DC Oxycodone HCl (Roxicodone) 5 mg PRN Q3HRS PRN PO BREAKTHROUGH PAIN Last administered on 01/09/17 20:54; Start 01/08/17 at 21:15 Morphine Sulfate 1 mg PRN Q2HR PRN IV PAIN Last administered on 01/10/17 08:51 ; Start 01/08/17 at 21:15; Stop 01/11/17 at 08:13; Status DC Acetaminophen (Tylenol) 650 mg PRN Q6HRS PRN PO MILD PAIN / TEMP; Start at 21:15 Docusate Sodium (Colace) 100 mg BID PO Last administered on 01/09/17 20:54; Start 01/08/17 at 22:00 Magnesium Hydroxide (Milk Of Magnesia) 2,400 mg PRN Q12HR PRN PO CONSTIPATION; Start 01/08/17 at 21:15 Bisacodyl (Dulcolax Supp) 10 mg PRN DAILY PRN HI CONSTIPATION; Start 01/08/17 at 21:15 Enoxaparin Sodium (Lovenox 40mg Syringe) 40 mg Q24H SQ ; Start 01/08/17 at 22:00 ; Stop 01/08/17 at 22:00; Status DC Pantoprazole Sodium (Protonix Vial) 40 mg DAILYAC IVP Last administered on 09:24; Start 01/09/17 at 07:30 Enoxaparin Sodium 30 mg 30 mg Q24H SQ Last administered on 01/08/17 22:20; Start 01/08/17 at 22:00; Stop 01/09/17 at 09:24; Status DC Cefoxitin Sodium (Mefoxin 2gm Ivpb For Omni) 100 ml @ 200 mls/hr 1X PERIOP IV ; Start 01/09/17 at 08:45; Stop 01/10/17 at 11:49; Status DC Cetirizine HCl (Zyrtec) 10 mg DAILY PO Last administered on 01/09/17 10:27; Start 01/09/17 at 10:30 Guaifenesin (Mucinex) 600 mg PRN Q8HRS PRN PO CONGESTION; Start 01/09/17 at 09: 30 Levothyroxine Sodium (Synthroid) 50 mcg DAILYAC PO Last administered on 10:27; Start 01/09/17 at 10:30; Stop 01/11/17 at 08:19; Status DC Tramadol HCl (Ultram) 50 mg PRN Q6HRS PRN PO PAIN; Start 01/09/17 at 09:30 Non-Formulary Medication 2 puff QID INH ; Start 01/09/17 at 13:00; Status UNV Metoprolol Tartrate (Lopressor) 25 mg BID PO Last administered on 01/09/17 20: 54; Start 01/09/17 at 10:30 Fluticasone Propionate 2 spray 2 spray DAILY NS Last administered on 01/09/17 10:28; Start 01/09/17 at 10:30; Stop 01/09/17 at 13:10; Status DC Amino Acids/ Electrolytes/ Dextrose (Clinimix E 4.25%-5% Solution) 1,000 ml @ 80 mls/hr [id number] IV Last administered on 01/10/17 01:00; Start 01/09/17 at 10: 30 Enoxaparin Sodium (Lovenox 30mg Syringe) 30 mg Q24H SQ ; Start 01/09/17 at 10:00 ; Stop 01/09/17 at 10:00; Status DC Enoxaparin Sodium (Lovenox 30mg Syringe) 30 mg 1X ONCE SQ ; Start 01/09/17 at 10 :00; Stop 01/09/17 at 10:00; Status DC Enoxaparin Sodium (Lovenox 30mg Syringe) 30 mg Q24H SQ ; Start 01/10/17 at 21:00 ; Stop 01/11/17 at 09:42; Status DC Albuterol Sulfate (Ventolin Neb Soln) 2.5 mg RTQID NEB Last administered on 01/11 07:43; Start 01/09/17 at 12:00 Fluticasone Propionate (Flonase) 2 spray DAILY NS ; Start 01/09/17 at 13:10 Ondansetron HCl (Zofran) 4 mg PRN Q6HRS PRN IV NAUSEA/VOMITING; Start 01/10/17 at 07:30; Stop 01/10/17 at 18:00; Status DC Fentanyl Citrate (Fentanyl 2ml Vial) 25 mcg PRN Q5MIN PRN IV MILD PAIN; Start 01/10/17 at 07:30; Stop 01/10/17 at 18:00; Status DC Fentanyl Citrate 50 mcg 50 mcg PRN Q5MIN PRN IV MODERATE PAIN; Start 01/10/17 at 07:30; Stop 01/10/17 at 18:00; Status DC Lactated Ringer's (Iv Lactated Ringers) 1,000 ml @ 30 mls/hr Q24H IV ; Start at 07:28; Stop 01/10/17 at 19:27; Status DC Prochlorperazine Edisylate (Compazine) 5 mg PACU PRN PRN IV NAUSEA, MRX1; Start 01/10/17 at 07:30; Stop 01/10/17 at 18:00; Status DC Desflurane (Suprane) 90 ml STK-MED ONCE IH ; Start 01/10/17 at 09:03; Stop at 09:04; Status DC Fentanyl Citrate (Fentanyl 2ml Vial) 100 mcg STK-MED ONCE .ROUTE ; Start at 09:03; Stop 01/10/17 at 09:04; Status DC Rocuronium [place] 50 mg 50 mg STK-MED ONCE .ROUTE ; Start 01/10/17 at 09:03; Stop 01/10/17 at 09:04; Status DC Propofol (Diprivan) 20 ml @ As Directed STK-MED ONCE IV ; Start 01/10/17 at 09:04 ; Stop 01/10/17 at 09:05; Status DC Ondansetron HCl (Zofran) 4 mg STK-MED ONCE .ROUTE ; Start 01/10/17 at 09:04; Stop 01/10/17 at 09:05; Status DC Dexamethasone Sodium Phosphate (Decadron) 20 mg STK-MED ONCE .ROUTE ; Start 01/10 at 09:04; Stop 01/10/17 at 09:05; Status DC Lidocaine HCl (Lidocaine HCl 2% Abboject) 100 mg STK-MED ONCE .ROUTE ; Start 01/10/17 at 09:04; Stop 01/10/17 at 09:05; Status DC Phenylephrine HCl (Rodrigue-Synephrine Inj) 10 mg STK-MED ONCE .ROUTE ; Start at 09:27; Stop 01/10/17 at 09:28; Status DC Fentanyl Citrate (Fentanyl 5ml Vial) 250 mcg STK-MED ONCE .ROUTE ; Start at 10:17; Stop 01/10/17 at 10:18; Status DC Rocuronium [place] 50 mg 50 mg STK-MED ONCE .ROUTE ; Start 01/10/17 at 10:26; Stop 01/10/17 at 10:27; Status DC Albumin Human (Plasmanate) 500 ml @ As Directed STK-MED ONCE IV ; Start at 11:32; Stop 01/10/17 at 11:33; Status DC Lorazepam (Ativan) 2 mg STK-MED ONCE .ROUTE ; Start 01/10/17 at 11:38; Stop at 11:39; Status DC Cellulose 1 each 1 each STK-MED ONCE .ROUTE Last administered on 01/10/17 10:23 ; Start 01/10/17 at 12:09; Stop 01/10/17 at 12:10; Status DC Albumin Human (Plasmanate) 500 ml @ As Directed STK-MED ONCE IV ; Start at 12:14; Stop 01/10/17 at 12:15; Status DC Phenylephrine HCl (Rodrigue-Synephrine Inj) 10 mg STK-MED ONCE .ROUTE ; Start at 12:14; Stop 01/10/17 at 12:15; Status DC Cellulose 1 each STK-MED ONCE .ROUTE Last administered on 01/10/17 10:23; Start 01/10/17 at 12:46; Stop 01/10/17 at 12:47; Status DC Lorazepam (Ativan) 2 mg STK-MED ONCE .ROUTE ; Start 01/10/17 at 12:47; Stop at 12:48; Status DC Phenylephrine HCl (Rodrigue-Synephrine Inj) 10 mg STK-MED ONCE .ROUTE ; Start at 12:55; Stop 01/10/17 at 12:56; Status DC Vasopressin (Vasostrict) 20 unit STK-MED ONCE .ROUTE ; Start 01/10/17 at 12:58; Stop 01/10/17 at 12:59; Status DC Norepinephrine Bitartrate (Levophed Vial) 4 mg STK-MED ONCE IV ; Start 01/10/17 at 13:00; Stop 01/10/17 at 13:01; Status DC Norepinephrine Bitartrate (Levophed Vial) 4 mg STK-MED ONCE IV ; Start 01/10/17 at 13:00; Stop 01/10/17 at 13:01; Status DC Rocuronium [place] (Zemuron) 50 mg STK-MED ONCE .ROUTE ; Start 01/10/17 at 13:30 ; Stop 01/10/17 at 13:31; Status DC Famotidine (Pepcid) 20 mg QHS IVP ; Start 01/10/17 at 21:00; Stop 01/11/17 at 08: 15; Status DC Sodium Chloride 3 ml 3 ml QSHIFT PRN IV AFTER MEDS AND BLOOD DRAWS; Start at 13:45 Lactated Ringer's (Iv Lactated Ringers) 1,000 ml @ 100 mls/hr Q10H IV Last administered on 01/10/17 22:45; Start 01/10/17 at 13:43 Morphine Sulfate 1 mg PRN Q1HR PRN IV PAIN Last administered on 01/10/17 17:41 ; Start 01/10/17 at 13:45 Ondansetron HCl (Zofran) 4 mg PRN Q6HRS PRN IV NAUESA, 1ST CHOICE; Start at 13:45 Cellulose 2 each STK-MED ONCE TP Last administered on 01/10/17 10:23; Start 01/10/17 at 10:23; Stop 01/10/17 at 14:25; Status DC Lorazepam (Ativan) 2 mg STK-MED ONCE .ROUTE ; Start 01/10/17 at 20:59; Stop at 21:00; Status DC Rocuronium [place] 50 mg 50 mg STK-MED ONCE .ROUTE ; Start 01/10/17 at 21:30; Stop 01/10/17 at 21:31; Status DC Cefoxitin Sodium (Mefoxin 2gm Ivpb For Omni) 100 ml @ As Directed STK-MED ONCE IV ; Start 01/10/17 at 21:45; Stop 01/10/17 at 21:46; Status DC Cellulose 1 each STK-MED ONCE .ROUTE Last administered on 01/10/17 21:47; Start 01/10/17 at 21:48; Stop 01/10/17 at 21:49; Status DC Cellulose 2 each STK-MED ONCE TP Last administered on 01/10/17 21:47; Start 01/10/17 at 21:47; Stop 01/10/17 at 22:14; Status DC Sodium Chloride 3 ml 3 ml QSHIFT PRN IV AFTER MEDS AND BLOOD DRAWS; Start at 22:30 Fentanyl Citrate 30 ml @ 0 mls/hr CONT PRN IV PROTOCOL; Start 01/10/17 at 22:30 Propofol (Diprivan) 100 ml @ 0 mls/hr CONT PRN IV PER PROTOCOL; Start 01/10/17 at 22:30 Chlorhexidine Gluconate 15 ml 15 ml BID MM Last administered on 01/11/17 09:25 ; Start 01/11/17 at 09:00 Sodium Chloride 1,000 ml @ 1,000 mls/hr 1X ONCE IV Last administered on 02:30; Start 01/11/17 at 02:30; Stop 01/11/17 at 03:29; Status DC Levothyroxine Sodium 25 mcg/ Sodium Chloride 5 ml @ 100 mls/hr DAILY IVP Last administered on 01/11/17 09:25; Start 01/11/17 at 09:00 Sodium Chloride (Iv Sodium Chloride 0.9% 500ml Bag) 500 ml @ 500 mls/hr 1X ONCE IV ; Start 01/11/17 at 09:45; Stop 01/11/17 at 10:44; Status DC Heparin Sodium (Porcine) 5,000 unit Q8HRS SQ ; Start 01/11/17 at 14:00 Info 1 each 1 each PRN DAILY PRN MC SEE COMMENTS; Start 01/11/17 at 10:15 Norepinephrine Bitartrate/Sodium Chloride (Levophed Vial/ Iv Sodium Chloride 0.9 % 250ml) 258 ml @ 0 mls/hr CONT PRN IV SEE I/O RECORD; Start 01/11/17 at 11:15 Active Scripts Active Reported Pred Forte (Prednisolone Acetate) 1 Ml Drops.susp 1 Ml OU BID PRN Visine Allergy Relief Drop (Tetrahydrozoline Hcl/Zn Sulf) 15 Ml Drops 1 Drop OU PRN Thera Tears (Carboxymethylcellulose Sodium) 15 Ml Drops 1 Drop OU PRN Jaime-128 (Sodium Chloride) 15 Ml Drops 1 Drop OU PRN Tramadol Hcl 100 Mg Tbmp.24hr 100 Mg PO Q6H PRN Tramadol Hcl 50 Mg Tablet 50 Mg PO Q6H PRN Zyrtec (Cetirizine Hcl) 10 Mg Tablet 10 Mg PO DAILY Nasacort (Triamcinolone Acetonide) 10.8 Ml [place] 2 [place] NS DAILY Proair Hfa Inhaler (Albuterol Sulfate) 8.5 Gm Hfa.aer.ad 2 Puff INH QID Mucinex (Guaifenesin) 600 Mg Tablet.er 600 Mg PO Q8HRS PRN Levothyroxine Sodium 50 Mcg Tablet 50 Mcg PO DAILYAC Dyazide 37.5-25 Capsule (Triamterene/Hydrochlorothiazid) 1 Each Capsule 1 Cap PO DAILY Bystolic (Nebivolol) 5 Mg Tablet 5 Mg PO DAILY Vitals/I & O Vital Sign - Last 24 Hours 01/10/17 01/10/17 01/10/17 01/10/17 14:00 14:00 14:00 14:12 Temp 97.5 97.5 97.5 97.5 Pulse 90 87 Resp 14 B/P 90/36 93/45 Pulse Ox 100 100 O2 Delivery Ventilator Mechanical Ventilator Ventilator 01/10/17 01/10/17 01/10/17 01/10/17 14:15 14:30 14:45 15:00 Temp 97.4 97.4 97.2 97.4 97.4 97.2 Pulse 86 86 84 86 Resp 14 14 14 14 B/P 88/36 100/38 108/38 104/42 Pulse Ox 100 100 100 100 O2 Delivery Ventilator Ventilator Ventilator Ventilator 01/10/17 01/10/17 01/10/17 01/10/17 15:15 15:30 15:45 15:58 Temp 97.0 96.5 96.5 97.0 96.5 96.5 Pulse 82 84 88 Resp 14 14 B/P 138/50 132/48 116/46 Pulse Ox 100 100 100 100 O2 Delivery Ventilator Ventilator Ventilator Ventilator 01/10/17 01/10/17 01/10/1717 16:00 16:00 16:00 16:15 Temp 96.3 96.3 Pulse 90 82 Resp 14 14 B/P 102/38 168/56 Pulse Ox 100 100 O2 Delivery Ventilator Mechanical Ventilator Ventilator 01/10/17 01/10/17 01/10/17 01/10/17 16:30 16:45 17:00 17:45 Temp 96.6 97.1 97.6 96.6 97.1 97.6 Pulse 78 82 91 Resp 14 14 14 14 B/P 174/58 187/86 185/61 178/64 Pulse Ox 100 100 100 100 O2 Delivery Ventilator Ventilator Ventilator Ventilator 01/10/17 01/10/17 01/10/17 01/10/17 17:56 18:00 18:30 18:45 Temp 97.5 97.5 97.6 97.5 97.5 97.6 Pulse 90 93 100 Resp 14 14 14 B/P 165/61 155/60 160/64 Pulse Ox 100 100 100 100 O2 Delivery Ventilator Ventilator Ventilator Ventilator 01/10/17 01/10/17 01/10/17 01/10/17 19:00 19:27 20:00 20:00 Pulse 110 Resp 14 B/P 140/62 Pulse Ox 100 100 O2 Delivery Ventilator Ventilator Mechanical Ventilator 01/10/17 01/10/17 01/10/17 01/10/17 20:00 21:00 21:19 22:35 Temp 99.5 99.5 Pulse 114 117 110 Resp 14 14 14 B/P 114/50 111/49 94/40 Pulse Ox 100 100 100 100 O2 Delivery Ventilator Ventilator Ventilator Ventilator 01/10/17 01/10/17 01/10/17 01/10/17 22:50 23:00 23:25 23:51 Pulse 110 112 Resp 14 14 B/P 96/46 96/44 Pulse Ox 100 100 100 O2 Delivery Ventilator Ventilator Ventilator Ventilator 01/11/17 01/11/17 01/11/17 01/11/17 00:00 00:00 00:00 01:00 Temp 98.1 98.1 Pulse 113 118 Resp 12 12 B/P 97/43 105/50 Pulse Ox 100 100 O2 Delivery Ventilator Mechanical Ventilator Ventilator 01/11/17 01/11/17 01/11/17 01/11/17 01:23 02:00 03:00 03:22 Pulse 115 102 Resp 12 12 B/P 102/49 116/45 Pulse Ox 100 100 100 100 O2 Delivery Ventilator Ventilator Ventilator Ventilator 01/11/17 01/11/17 01/11/17 01/11/17 04:00 04:00 04:00 05:00 Temp 97.6 97.6 Pulse 110 114 Resp 12 12 B/P 97/43 100/45 Pulse Ox 100 100 O2 Delivery Ventilator Mechanical Ventilator Ventilator 01/11/17 01/11/17 01/11/17 05:19 06:00 07:44 Pulse 116 Resp 12 B/P 104/44 Pulse Ox 100 100 100 O2 Delivery Ventilator Ventilator Ventilator Intake and Output 01/10/17 01/10/17 01/11/17 15:00 23:00 07:00 Intake Total 4800 ml 2760 ml Output Total 2580 ml 2165 ml 620 ml Balance 2220 ml 595 ml -620 ml Problem List Problems Medical Problems: (1) Pancreatic mass Status: Acute Assessment S/P pancreatectomy- with coagulopathy, supportive medical therapy, prognosis guarded with underlying disease, CPM TIFFANI PERES MD Jan 11, 2017 11:28
[2017-01-11] MEDS: AA 4.25%/CALCIUM/LYTES/D5W 1,000 ML IV SCH ×2 (12:30)
[2017-01-11] MEDS: FENTANYL STANDARD PCA 30 ML IV PRN (12:52)
[2017-01-11 12:57] LABS: BASO % 0 % (0-3); EOS % 0 % (0-3); LYMPH # 0.9 x10^3/uL (1.0-4.8); LYMPH % 5 % (24-48); MEAN CORPUSCULAR HEMOGLOBIN 28 pg (25-35); MEAN CORPUSCULAR HGB CONC 33 g/dL (31-37); MEAN CORPUSCULAR VOLUME 85 fL (79-100); MONO % 6 % (0-9); NEUT % 89 % (31-73); PLATELET COUNT 158 x10^3/uL (140-400); RED BLOOD COUNT 2.08 x10^6/uL (3.50-5.40); RED CELL DISTRIBUTION WIDTH 15.4 % (11.5-14.5); WHITE BLOOD COUNT 19.5 x10^3/uL (4.0-11.0)
[2017-01-11 13:01] LABS: HEMATOCRIT 17.8 % (36.0-47.0); HEMOGLOBIN 5.8 g/dL (12.0-15.5)
[2017-01-11] MEDS ORDERED: IV RINGERS,LACTATED 500ML 500 ML IV PRN (13:15)
[2017-01-11] MEDS ORDERED: IV NORMAL SALINE 500ML BAG 500 ML IV PRN (13:15)
[2017-01-11 13:19] LABS: ALBUMIN 1.6 g/dL (3.4-5.0); ALBUMIN/GLOBULIN RATIO 0.8 (1.0-1.7); CALCIUM 6.6 mg/dL (8.5-10.1); CREATININE 1.6 mg/dL (0.6-1.0); GFR 31.1; POTASSIUM 3.9 mmol/L (3.5-5.1); TOTAL PROTEIN 3.6 g/dL (6.4-8.2)
[2017-01-11] MEDS ORDERED: TPN PER PHARMACY MC PRN (13:45)
[2017-01-11] MEDS: TPN PER PHARMACY MC PRN (13:53)
[2017-01-11] MEDS ORDERED: HEPARIN PF for SUB-Q USE 5,000 UNIT/0.5 ML VIAL. SQ SCH (14:00)
[2017-01-11] MEDS: PROPOFOL 100 ML IV PRN (19:52)
[2017-01-11] MEDS ORDERED: AMINO ACIDS IV SCH ×9 (22:00)
[2017-01-11] MEDS ORDERED: [UNRECOGNIZED DRUG - OTHER] IV SCH ×9 (22:00)
[2017-01-11] MEDS ORDERED: TOTAL PARENTERAL NUTRITION IV SCH ×9 (22:00)
[2017-01-11] MEDS ORDERED: DEXTROSE 70% IV SCH ×9 (22:00)
[2017-01-12] VITALS (24 sets, daily range): BP systolic 82–155; BP diastolic 43–76
[2017-01-12] MEDS: FENTANYL STANDARD PCA 30 ML IV PRN (03:21)
[2017-01-12] MEDS: IV RINGERS,LACTATED 1000ML 1,000 ML IV SCH ×2 (05:17→13:20)
[2017-01-12 05:57] LABS: BASO % 0 % (0-3); EOS % 0 % (0-3); HEMATOCRIT 29.2 % (36.0-47.0); HEMOGLOBIN 10.1 g/dL (12.0-15.5); LYMPH # 1.6 x10^3/uL (1.0-4.8); LYMPH % 6 % (24-48); MEAN CORPUSCULAR HEMOGLOBIN 29 pg (25-35); MEAN CORPUSCULAR HGB CONC 34 g/dL (31-37); MEAN CORPUSCULAR VOLUME 84 fL (79-100); MONO % 4 % (0-9); NEUT % 90 % (31-73); PLATELET COUNT 147 x10^3/uL (140-400); RED BLOOD COUNT 3.49 x10^6/uL (3.50-5.40); RED CELL DISTRIBUTION WIDTH 15.2 % (11.5-14.5); WHITE BLOOD COUNT 24.6 x10^3/uL (4.0-11.0)
[2017-01-12 06:11] LABS: MAGNESIUM 1.5 mg/dL (1.8-2.4); PHOSPHORUS 2.5 mg/dL (2.6-4.7)
[2017-01-12 06:18] LABS: ALBUMIN 1.6 g/dL (3.4-5.0); ALBUMIN/GLOBULIN RATIO 0.7 (1.0-1.7); CALCIUM 7.3 mg/dL (8.5-10.1); CREATININE 1.8 mg/dL (0.6-1.0); GFR 27.1; POTASSIUM 3.7 mmol/L (3.5-5.1); TOTAL BILIRUBIN 0.6 mg/dL (0.2-1.0)
[2017-01-12] MEDS: ALBUTEROL SULFATE 2.5 MG/3 ML NEBU. NEB SCH ×4 (07:23→19:41)
[2017-01-12 07:39] LABS: HCO3 ABG 20 mmol/L (21-28); PCO2 ABG 31 mmHg (35-46); PH ABG 7.43 (7.35-7.45); PO2 ABG 118 mmHg (65-108); SAT O2 ABG 98 % (92-99)
[2017-01-12 07:42] LABS: FIO2 ABG 30
[2017-01-12] MEDS: PANTOPRAZOLE IV PUSH 40 MG VIAL. IVP SCH (07:54)
[2017-01-12] MEDS: CETIRIZINE HCL 10 MG TABLET. PO SCH (08:50)
[2017-01-12] MEDS: FLUTICASONE 50MCG/NASAL SPRAY 16GM BOTTLE. NS SCH (08:50)
[2017-01-12] MEDS: METOPROLOL TART IMMED RELEASE 25 MG TABLET. PO SCH ×2 (09:00→21:00)
[2017-01-12] MEDS: DOCUSATE SODIUM 100 MG CAPSULE. PO SCH ×2 (09:00→21:00)
--- NOTE | 2017-01-12 09:21 | RAD ---
Portable chest, 01/12/2017: History: Respiratory failure Comparison is made to a study from 01/10/2017. The tip of the ET tube now lies 3 cm above the mckenna. A right jugular central venous catheter extends into the superior aspect of the right atrium. An NG tube extends into the stomach. An additional tubing overlying the left upper quadrant of the abdomen probably represents a surgical drain. The heart size and pulmonary vascularity are normal. The patient positioning is kyphotic. There is mild relative elevation of the right hemidiaphragm. Mucus plugging could be producing this discrepancy, versus a subdiaphragmatic process. No definite pulmonary consolidation or pleural fluid is seen. There is no evidence of pneumothorax. IMPRESSION: 1. Stable tube positions. 2. Mild elevation of the right hemidiaphragm.
[2017-01-12] MEDS: CHLORHEXIDINE 0.12% 15 ML MOUTHWASH. MM SCH ×2 (09:37→22:09)
[2017-01-12] MEDS: LEVOTHYROXINE SODIUM 25 MCG in IV NORMAL SALINE 50ML 5 ML IVP SCH (09:37)
[2017-01-12 10:42] LABS: PLT ESTIMATE ADEQUATE (ADEQUATE)
--- NOTE | 2017-01-12 12:18 | PDOC ---
PROGRESS NOTES Chief Complaint Chief Complaint Pancreatic mass w/obstruction ASSESSMENT AND PLAN: 1. Obstruction: s/p resection on 01/[address] Jenkins; ostomy placed 2. Pancreas CA w/ liver mets: awaiting path confirmation. Dr Mckeon following 3. Anemia: acute blood loss. s/p transfusion of PRBC x10, FFP x6, cryo x1, plts x2. monitor closely 4. coagulopathy: severe hypofibrinogenemia post op. monitor closely. transfuse FFP as indicated 5. SIRS: 2/2 above 6. Acute respiratory failure: intubated for OR; 7. Nutrition: currently on TPN; NG/PO feeds as per surgery 8. Hyponatremia: resolved. 9. FREDIS: worsening. change IVF to NS, K repletion cautiously. 10. Prophylaxis: PPI. Lovenox on hold with massive bleed. pt prob high risk for DVTs with malignancy CC time: 40 min Vitals Vitals Vital Signs Date Time Temp Pulse Resp B/P Pulse Ox O2 Delivery O2 Flow Rate FiO2 01/12/17 12:00 98.4 105 12 122/66 100 Ventilator 98.4 Physical Exam General: Other (intubated, sedated) Heart: Regular rate Abdomen: Soft, No tenderness, Other (JANICE sanginous) Extremities: No clubbing, No edema Skin: No rashes, No significant lesion Labs LABS Laboratory Tests Test 01/11/17 12:30 01/12/17 05:30 01/12/17 07:20 White Blood Count 19.5x10^3/uL (4.0-11.0) 24.6x10^3/uL (4.0-11.0) Red Blood Count 2.08x10^6/uL (3.50-5.40) 3.49x10^6/uL (3.50-5.40) Hemoglobin 5.8g/dL (12.0-15.5) 10.1g/dL (12.0-15.5) Hematocrit 17.8% (36.0-47.0) 29.2% (36.0-47.0) Mean Corpuscular Volume 85fL (79-100) 84fL (79-100) Mean Corpuscular Hemoglobin 28pg (25-35) 29pg (25-35) Mean Corpuscular Hemoglobin Concent 33g/dL (31-37) 34g/dL (31-37) Red Cell Distribution Width 15.4% (11.5-14.5) 15.2% (11.5-14.5) Platelet Count 158x10^3/uL (140-400) 147x10^3/uL (140-400) Neutrophils (%) (Auto) 89% (31-73) 90% (31-73) Lymphocytes (%) (Auto) 5% (24-48) 6% (24-48) Monocytes (%) (Auto) 6% (0-9) 4% (0-9) Eosinophils (%) (Auto) 0% (0-3) 0% (0-3) Basophils (%) (Auto) 0% (0-3) 0% (0-3) Neutrophils # (Auto) 17.3x10^3uL (1.8-7.7) 22.1x10^3uL (1.8-7.7) Lymphocytes # (Auto) 0.9x10^3/uL (1.0-4.8) 1.6x10^3/uL (1.0-4.8) Monocytes # (Auto) 1.2x10^3/uL (0.0-1.1) 0.9x10^3/uL (0.0-1.1) Eosinophils # (Auto) 0.0x10^3/uL (0.0-0.7) 0.0x10^3/uL (0.0-0.7) Basophils # (Auto) 0.0x10^3/uL (0.0-0.2) 0.0x10^3/uL (0.0-0.2) Sodium Level 142mmol/L (136-145) 141mmol/L (136-145) Potassium Level 3.9mmol/L (3.5-5.1) 3.7mmol/L (3.5-5.1) Chloride Level 111mmol/L (98-107) 109mmol/L (98-107) Carbon Dioxide Level 18mmol/L (21-32) 22mmol/L (21-32) Anion Gap 13 (6-14) 10 (6-14) Blood Urea Nitrogen 27mg/dL (7-20) 36mg/dL (7-20) Creatinine 1.6mg/dL (0.6-1.0) 1.8mg/dL (0.6-1.0) Estimated GFR (Cockcroft-Gault) 31.1 27.1 BUN/Creatinine Ratio 17 (6-20) 20 (6-20) Glucose Level 142mg/dL (70-99) 267mg/dL (70-99) Calcium Level 6.6mg/dL (8.5-10.1) 7.3mg/dL (8.5-10.1) Total Bilirubin 1.0mg/dL (0.2-1.0) 0.6mg/dL (0.2-1.0) Aspartate Amino Transf (AST/SGOT) 1208U/L (15-37) 2719U/L (15-37) Alanine Aminotransferase (ALT/SGPT) 749U/L (14-59) 2277U/L (14-59) Alkaline Phosphatase 42U/L (46-116) 64U/L (46-116) Total Protein 3.6g/dL (6.4-8.2) 4.0g/dL (6.4-8.2) Albumin 1.6g/dL (3.4-5.0) 1.6g/dL (3.4-5.0) Albumin/Globulin Ratio 0.8 (1.0-1.7) 0.7 (1.0-1.7) Segmented Neutrophils % 73% (35-66) Band Neutrophils % 21% (0-9) Lymphocytes % 3% (24-48) Monocytes % 3% (0-10) Platelet Estimate Adequate (ADEQUATE) Phosphorus Level 2.5mg/dL (2.6-4.7) Magnesium Level 1.5mg/dL (1.8-2.4) Triglycerides Level 140mg/dL (0-150) O2 Saturation 98% (92-99) Arterial Blood pH 7.43 (7.35-7.45) Arterial Blood pCO2 at Patient Temp 31mmHg (35-46) Arterial Blood pO2 at Patient Temp 118mmHg (65-108) Arterial Blood HCO3 20mmol/L (21-28) Arterial Blood Base Excess -4mmol/L (-3-3) FiO2 30 Review of Systems Review of Systems sedated, intubated JAC VILLA MD Jan 12, 2017 12:18
--- NOTE | 2017-01-12 12:29 | PDOC ---
PROGRESS NOTES Subjective Subjective c/c - f/u of Pancreatic mass ROS - sedated on vent Objective Objective Vital Signs Date Time Temp Pulse Resp B/P Pulse Ox O2 Delivery O2 Flow Rate FiO2 01/12/17 12:00 98.4 105 12 122/66 100 Ventilator 98.4 Intake and Output 01/12/17 07:00 Intake Total 3636 ml Output Total 2708 ml Balance 928 ml IV Total 3636 ml Output Urine Total 218 ml Gastric Drainage Total 780 ml Drainage Total 1710 ml Physical Exam Heart: Normal S1, Normal S2 Lungs: Clear to auscultation Assessment Assessment Problems Medical Problems: (1) Pancreatic mass Status: Acute IMPRESSION AND PLAN: 1. 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 The mass is noted to be invading the spleen, stomach and splenic flexure of the colon with associated colonic obstruction. There was also evidence of an 18 mm lesion in the left lobe of the liver concerning for metastatic focus. I also discussed in detail with Dr. Erik Jenkins and in view of colon obstruction caused by the mass, I agreed to proceed with surgery which was done 01/10/2017. All gross disease resected. f/u pathology. 2. CT scan of the chest 01/09/17 : 3 mm nonspecific left upper lobe pulmonary nodule. Attention on follow-up imaging. Bone scan 01/09/17 is neg. f/u CA 19-9 level. 3. Liver metastasis per CT abdomen. I discussed with Dr. Erik Jenkins. s/p resection of 2 lesions. 4. Post op care in ICU 5. Anemia: acute blood loss. s/p transfusion of PRBC x10, FFP x6, cryo x1, plts x2. monitor closely Comment Review of Relevant I have reviewed the following items [place] (where applicable) has been applied. Labs Laboratory Tests Test 01/10/17 13:00 01/10/17 14:57 01/10/17 15:15 01/10/17 15:52 Prothrombin Time 49.6SEC (11.7-14.0) Prothromb Time International Ratio 5.9 (0.8-1.1) Activated Partial Thromboplast Time 61SEC (24-38) Fibrinogen < 60mg/dL (200-440) Hematocrit 18.4% (36.0-47.0) Platelet Count 20x10^3/uL (140-400) Sodium Level 134mmol/L (136-145) Potassium Level 4.5mmol/L (3.5-5.1) Chloride Level 105mmol/L (98-107) Carbon Dioxide Level 22mmol/L (21-32) Anion Gap 7 (6-14) Blood Urea Nitrogen 20mg/dL (7-20) Creatinine 1.2mg/dL (0.6-1.0) Estimated GFR (Cockcroft-Gault) 43.3 Glucose Level 318mg/dL (70-99) Calcium Level 6.7mg/dL (8.5-10.1) O2 Saturation 99% (92-99) Arterial Blood pH 7.48 (7.35-7.45) Arterial Blood pCO2 at Patient Temp 27mmHg (35-46) Arterial Blood pO2 at Patient Temp 450mmHg (65-108) Arterial Blood HCO3 19mmol/L (21-28) Arterial Blood Base Excess -4mmol/L (-3-3) FiO2 100 Lactic Acid Level 2.8mmol/L (0.4-2.0) Test 01/10/17 19:25 01/10/17 23:17 01/11/17 05:00 01/11/17 05:55 White Blood Count 5.5x10^3/uL (4.0-11.0) 16.3x10^3/uL (4.0-11.0) Red Blood Count 2.82x10^6/uL (3.50-5.40) 2.70x10^6/uL (3.50-5.40) Hemoglobin 8.0g/dL (12.0-15.5) 7.5g/dL (12.0-15.5) Hematocrit 23.6% (36.0-47.0) 22.6% (36.0-47.0) Mean Corpuscular Volume 84fL (79-100) 84fL (79-100) Mean Corpuscular Hemoglobin 28pg (25-35) 28pg (25-35) Mean Corpuscular Hemoglobin Concent 34g/dL (31-37) 33g/dL (31-37) Red Cell Distribution Width 14.4% (11.5-14.5) 14.7% (11.5-14.5) Platelet Count 210x10^3/uL (140-400) 201x10^3/uL (140-400) Neutrophils (%) (Auto) 89% (31-73) 89% (31-73) Lymphocytes (%) (Auto) 4% (24-48) 5% (24-48) Monocytes (%) (Auto) 7% (0-9) 6% (0-9) Eosinophils (%) (Auto) 0% (0-3) 0% (0-3) Basophils (%) (Auto) 0% (0-3) 0% (0-3) Neutrophils # (Auto) 4.9x10^3uL (1.8-7.7) 14.4x10^3uL (1.8-7.7) Lymphocytes # (Auto) 0.2x10^3/uL (1.0-4.8) 0.8x10^3/uL (1.0-4.8) Monocytes # (Auto) 0.4x10^3/uL (0.0-1.1) 1.0x10^3/uL (0.0-1.1) Eosinophils # (Auto) 0.0x10^3/uL (0.0-0.7) 0.0x10^3/uL (0.0-0.7) Basophils # (Auto) 0.0x10^3/uL (0.0-0.2) 0.0x10^3/uL (0.0-0.2) Segmented Neutrophils % 34% (35-66) Band Neutrophils % 55% (0-9) Lymphocytes % 7% (24-48) Monocytes % 4% (0-10) Platelet Estimate Adequate (ADEQUATE) Large Platelets Occ Giant Platelets Occ Prothrombin Time 14.9SEC (11.7-14.0) Prothromb Time International Ratio 1.2 (0.8-1.1) Activated Partial Thromboplast Time 31SEC (24-38) O2 Saturation 98% (92-99) Arterial Blood pH 7.46 (7.35-7.45) Arterial Blood pCO2 at Patient Temp 28mmHg (35-46) Arterial Blood pO2 at Patient Temp 167mmHg (65-108) Arterial Blood HCO3 20mmol/L (21-28) Arterial Blood Base Excess -4mmol/L (-3-3) Oxyhemoglobin 98.2% Methemoglobin 0.2% (0.0-1.9) Carbon Monoxide, Quantitative 0.0% (0.0-1.9) FiO2 40 Phosphorus Level 4.0mg/dL (2.6-4.7) Magnesium Level 1.6mg/dL (1.8-2.4) Sodium Level 140mmol/L (136-145) Potassium Level 4.4mmol/L (3.5-5.1) Chloride Level 109mmol/L (98-107) Carbon Dioxide Level 19mmol/L (21-32) Anion Gap 12 (6-14) Blood Urea Nitrogen 23mg/dL (7-20) Creatinine 1.4mg/dL (0.6-1.0) Estimated GFR (Cockcroft-Gault) 36.3 BUN/Creatinine Ratio 16 (6-20) Glucose Level 183mg/dL (70-99) Calcium Level 7.0mg/dL (8.5-10.1) Total Bilirubin 1.0mg/dL (0.2-1.0) Aspartate Amino Transf (AST/SGOT) 99U/L (15-37) Alanine Aminotransferase (ALT/SGPT) 66U/L (14-59) Alkaline Phosphatase 51U/L (46-116) Total Protein 4.6g/dL (6.4-8.2) Albumin 2.1g/dL (3.4-5.0) Albumin/Globulin Ratio 0.8 (1.0-1.7) Test 01/11/17 06:00 01/11/17 12:30 01/12/17 01:00 01/12/17 05:30 O2 Saturation 98% (92-99) Arterial Blood pH 7.46 (7.35-7.45) Arterial Blood pCO2 at Patient Temp 24mmHg (35-46) Arterial Blood pO2 at Patient Temp 130mmHg (65-108) Arterial Blood HCO3 17mmol/L (21-28) Arterial Blood Base Excess -6mmol/L (-3-3) FiO2 30 White Blood Count 19.5x10^3/uL (4.0-11.0) 24.6x10^3/uL (4.0-11.0) Red Blood Count 2.08x10^6/uL (3.50-5.40) 3.49x10^6/uL (3.50-5.40) Hemoglobin 5.8g/dL (12.0-15.5) 10.1g/dL (12.0-15.5) Hematocrit 17.8% (36.0-47.0) 29.2% (36.0-47.0) Mean Corpuscular Volume 85fL (79-100) 84fL (79-100) Mean Corpuscular Hemoglobin 28pg (25-35) 29pg (25-35) Mean Corpuscular Hemoglobin Concent 33g/dL (31-37) 34g/dL (31-37) Red Cell Distribution Width 15.4% (11.5-14.5) 15.2% (11.5-14.5) Platelet Count 158x10^3/uL (140-400) 147x10^3/uL (140-400) Neutrophils (%) (Auto) 89% (31-73) 90% (31-73) Lymphocytes (%) (Auto) 5% (24-48) 6% (24-48) Monocytes (%) (Auto) 6% (0-9) 4% (0-9) Eosinophils (%) (Auto) 0% (0-3) 0% (0-3) Basophils (%) (Auto) 0% (0-3) 0% (0-3) Neutrophils # (Auto) 17.3x10^3uL (1.8-7.7) 22.1x10^3uL (1.8-7.7) Lymphocytes # (Auto) 0.9x10^3/uL (1.0-4.8) 1.6x10^3/uL (1.0-4.8) Monocytes # (Auto) 1.2x10^3/uL (0.0-1.1) 0.9x10^3/uL (0.0-1.1) Eosinophils # (Auto) 0.0x10^3/uL (0.0-0.7) 0.0x10^3/uL (0.0-0.7) Basophils # (Auto) 0.0x10^3/uL (0.0-0.2) 0.0x10^3/uL (0.0-0.2) Sodium Level 142mmol/L (136-145) 141mmol/L (136-145) Potassium Level 3.9mmol/L (3.5-5.1) 3.7mmol/L (3.5-5.1) Chloride Level 111mmol/L (98-107) 109mmol/L (98-107) Carbon Dioxide Level 18mmol/L (21-32) 22mmol/L (21-32) Anion Gap 13 (6-14) 10 (6-14) Blood Urea Nitrogen 27mg/dL (7-20) 36mg/dL (7-20) Creatinine 1.6mg/dL (0.6-1.0) 1.8mg/dL (0.6-1.0) Estimated GFR (Cockcroft-Gault) 31.1 27.1 BUN/Creatinine Ratio 17 (6-20) 20 (6-20) Glucose Level 142mg/dL (70-99) 267mg/dL (70-99) Calcium Level 6.6mg/dL (8.5-10.1) 7.3mg/dL (8.5-10.1) Total Bilirubin 1.0mg/dL (0.2-1.0) 0.6mg/dL (0.2-1.0) Aspartate Amino Transf (AST/SGOT) 1208U/L (15-37) 2719U/L (15-37) Alanine Aminotransferase (ALT/SGPT) 749U/L (14-59) 2277U/L (14-59) Alkaline Phosphatase 42U/L (46-116) 64U/L (46-116) Total Protein 3.6g/dL (6.4-8.2) 4.0g/dL (6.4-8.2) Albumin 1.6g/dL (3.4-5.0) 1.6g/dL (3.4-5.0) Albumin/Globulin Ratio 0.8 (1.0-1.7) 0.7 (1.0-1.7) Nasal Screen MRSA (PCR) Negative (Negative) Segmented Neutrophils % 73% (35-66) Band Neutrophils % 21% (0-9) Lymphocytes % 3% (24-48) Monocytes % 3% (0-10) Platelet Estimate Adequate (ADEQUATE) Phosphorus Level 2.5mg/dL (2.6-4.7) Magnesium Level 1.5mg/dL (1.8-2.4) Triglycerides Level 140mg/dL (0-150) Test 01/12/17 07:20 O2 Saturation 98% (92-99) Arterial Blood pH 7.43 (7.35-7.45) Arterial Blood pCO2 at Patient Temp 31mmHg (35-46) Arterial Blood pO2 at Patient Temp 118mmHg (65-108) Arterial Blood HCO3 20mmol/L (21-28) Arterial Blood Base Excess -4mmol/L (-3-3) FiO2 30 Laboratory Tests Test 01/11/17 12:30 01/12/17 01:00 01/12/17 05:30 01/12/17 07:20 White Blood Count 19.5x10^3/uL (4.0-11.0) 24.6x10^3/uL (4.0-11.0) Red Blood Count 2.08x10^6/uL (3.50-5.40) 3.49x10^6/uL (3.50-5.40) Hemoglobin 5.8g/dL (12.0-15.5) 10.1g/dL (12.0-15.5) Hematocrit 17.8% (36.0-47.0) 29.2% (36.0-47.0) Mean Corpuscular Volume 85fL (79-100) 84fL (79-100) Mean Corpuscular Hemoglobin 28pg (25-35) 29pg (25-35) Mean Corpuscular Hemoglobin Concent 33g/dL (31-37) 34g/dL (31-37) Red Cell Distribution Width 15.4% (11.5-14.5) 15.2% (11.5-14.5) Platelet Count 158x10^3/uL (140-400) 147x10^3/uL (140-400) Neutrophils (%) (Auto) 89% (31-73) 90% (31-73) Lymphocytes (%) (Auto) 5% (24-48) 6% (24-48) Monocytes (%) (Auto) 6% (0-9) 4% (0-9) Eosinophils (%) (Auto) 0% (0-3) 0% (0-3) Basophils (%) (Auto) 0% (0-3) 0% (0-3) Neutrophils # (Auto) 17.3x10^3uL (1.8-7.7) 22.1x10^3uL (1.8-7.7) Lymphocytes # (Auto) 0.9x10^3/uL (1.0-4.8) 1.6x10^3/uL (1.0-4.8) Monocytes # (Auto) 1.2x10^3/uL (0.0-1.1) 0.9x10^3/uL (0.0-1.1) Eosinophils # (Auto) 0.0x10^3/uL (0.0-0.7) 0.0x10^3/uL (0.0-0.7) Basophils # (Auto) 0.0x10^3/uL (0.0-0.2) 0.0x10^3/uL (0.0-0.2) Sodium Level 142mmol/L (136-145) 141mmol/L (136-145) Potassium Level 3.9mmol/L (3.5-5.1) 3.7mmol/L (3.5-5.1) Chloride Level 111mmol/L (98-107) 109mmol/L (98-107) Carbon Dioxide Level 18mmol/L (21-32) 22mmol/L (21-32) Anion Gap 13 (6-14) 10 (6-14) Blood Urea Nitrogen 27mg/dL (7-20) 36mg/dL (7-20) Creatinine 1.6mg/dL (0.6-1.0) 1.8mg/dL (0.6-1.0) Estimated GFR (Cockcroft-Gault) 31.1 27.1 BUN/Creatinine Ratio 17 (6-20) 20 (6-20) Glucose Level 142mg/dL (70-99) 267mg/dL (70-99) Calcium Level 6.6mg/dL (8.5-10.1) 7.3mg/dL (8.5-10.1) Total Bilirubin 1.0mg/dL (0.2-1.0) 0.6mg/dL (0.2-1.0) Aspartate Amino Transf (AST/SGOT) 1208U/L (15-37) 2719U/L (15-37) Alanine Aminotransferase (ALT/SGPT) 749U/L (14-59) 2277U/L (14-59) Alkaline Phosphatase 42U/L (46-116) 64U/L (46-116) Total Protein 3.6g/dL (6.4-8.2) 4.0g/dL (6.4-8.2) Albumin 1.6g/dL (3.4-5.0) 1.6g/dL (3.4-5.0) Albumin/Globulin Ratio 0.8 (1.0-1.7) 0.7 (1.0-1.7) Nasal Screen MRSA (PCR) Negative (Negative) Segmented Neutrophils % 73% (35-66) Band Neutrophils % 21% (0-9) Lymphocytes % 3% (24-48) Monocytes % 3% (0-10) Platelet Estimate Adequate (ADEQUATE) Phosphorus Level 2.5mg/dL (2.6-4.7) Magnesium Level 1.5mg/dL (1.8-2.4) Triglycerides Level 140mg/dL (0-150) O2 Saturation 98% (92-99) Arterial Blood pH 7.43 (7.35-7.45) Arterial Blood pCO2 at Patient Temp 31mmHg (35-46) Arterial Blood pO2 at Patient Temp 118mmHg (65-108) Arterial Blood HCO3 20mmol/L (21-28) Arterial Blood Base Excess -4mmol/L (-3-3) FiO2 30 Microbiology 01/10/17 Blood Culture - Preliminary, Resulted NO GROWTH AFTER 1 DAY Medications Current Medications Sodium Chloride (Iv Sodium Chloride 0.45%) 1,000 ml @ 80 mls/hr [id number] IV Last administered on 01/08/17t 22:17; Start 01/08/17 at 21:03; Stop 01/09/17 at 09: 23; Status DC Ondansetron HCl (Zofran) 4 mg PRN Q6HRS PRN IV NAUSEA/VOMITING Last administered on 01/09/17 15:51; Start 01/08/17 at 21:15; Stop 01/10/17 at 17:41; Status DC Prochlorperazine Edisylate (Compazine) 10 mg PRN Q6HRS PRN IV NAUSEA/VOMITING; Start 01/08/17 at 21:15 Prochlorperazine (Compazine) 25 mg PRN Q12HR PRN IA NAUSEA/VOMITING; Start 01/08 at 21:15 Al Hydroxide/Mg Hydroxide (Mylanta Plus Xs) 30 ml PRN Q3HRS PRN PO HEARTBURN / GAS; Start 01/08/17 at 21:15 Calcium Carbonate/ Glycine (Tums) 500 mg PRN Q3HRS PRN PO UPSET STOMACH; Start 01/08/17 at 21:15; Stop 01/08/17 at 21:20; Status DC Oxycodone HCl (Roxicodone) 5 mg PRN Q3HRS PRN PO BREAKTHROUGH PAIN Last administered on 01/09/17 20:54; Start 01/08/17 at 21:15 Morphine Sulfate 1 mg PRN Q2HR PRN IV PAIN Last administered on 01/10/17 08:51 ; Start 01/08/17 at 21:15; Stop 01/11/17 at 08:13; Status DC Acetaminophen (Tylenol) 650 mg PRN Q6HRS PRN PO MILD PAIN / TEMP; Start at 21:15 Docusate Sodium (Colace) 100 mg BID PO Last administered on 01/11/17 21:38; Start 01/08/17 at 22:00 Magnesium Hydroxide (Milk Of Magnesia) 2,400 mg PRN Q12HR PRN PO CONSTIPATION; Start 01/08/17 at 21:15 Bisacodyl (Dulcolax Supp) 10 mg PRN DAILY PRN IA CONSTIPATION; Start 01/08/17 at 21:15 Enoxaparin Sodium (Lovenox 40mg Syringe) 40 mg Q24H SQ ; Start 01/08/17 at 22:00 ; Stop 01/08/17 at 22:00; Status DC Pantoprazole Sodium (Protonix Vial) 40 mg DAILYAC IVP Last administered on 01/12 07:54; Start 01/09/17 at 07:30 Enoxaparin Sodium 30 mg 30 mg Q24H SQ Last administered on 01/08/17 22:20; Start 01/08/17 at 22:00; Stop 01/09/17 at 09:24; Status DC Cefoxitin Sodium (Mefoxin 2gm Ivpb For Omni) 100 ml @ 200 mls/hr 1X PERIOP IV ; Start 01/09/17 at 08:45; Stop 01/10/17 at 11:49; Status DC Cetirizine HCl (Zyrtec) 10 mg DAILY PO Last administered on 01/09/17 10:27; Start 01/09/17 at 10:30 Guaifenesin (Mucinex) 600 mg PRN Q8HRS PRN PO CONGESTION; Start 01/09/17 at 09: 30 Levothyroxine Sodium (Synthroid) 50 mcg DAILYAC PO Last administered on 10:27; Start 01/09/17 at 10:30; Stop 01/11/17 at 08:19; Status DC Tramadol HCl (Ultram) 50 mg PRN Q6HRS PRN PO PAIN; Start 01/09/17 at 09:30 Non-Formulary Medication 2 puff QID INH ; Start 01/09/17 at 13:00; Status UNV Metoprolol Tartrate (Lopressor) 25 mg BID PO Last administered on 01/11/17 21: 38; Start 01/09/17 at 10:30 Fluticasone Propionate 2 spray 2 spray DAILY NS Last administered on 01/09/17 10:28; Start 01/09/17 at 10:30; Stop 01/09/17 at 13:10; Status DC Amino Acids/ Electrolytes/ Dextrose (Clinimix E 4.25%-5% Solution) 1,000 ml @ 80 mls/hr [id number] IV Last administered on 01/10/17 01:00; Start 01/09/17 at 10: 30; Stop 01/11/17 at 21:59; Status DC Enoxaparin Sodium (Lovenox 30mg Syringe) 30 mg Q24H SQ ; Start 01/09/17 at 10:00 ; Stop 01/09/17 at 10:00; Status DC Enoxaparin Sodium (Lovenox 30mg Syringe) 30 mg 1X ONCE SQ ; Start 01/09/17 at 10 :00; Stop 01/09/17 at 10:00; Status DC Enoxaparin Sodium (Lovenox 30mg Syringe) 30 mg Q24H SQ ; Start 01/10/17 at 21:00 ; Stop 01/11/17 at 09:42; Status DC Albuterol Sulfate (Ventolin Neb Soln) 2.5 mg RTQID NEB Last administered on t 11:29; Start 01/09/17 at 12:00 Fluticasone Propionate (Flonase) 2 spray DAILY NS ; Start 01/09/17 at 13:10 Ondansetron HCl (Zofran) 4 mg PRN Q6HRS PRN IV NAUSEA/VOMITING; Start 01/10/17 at 07:30; Stop 01/10/17 at 18:00; Status DC Fentanyl Citrate (Fentanyl 2ml Vial) 25 mcg PRN Q5MIN PRN IV MILD PAIN; Start 01/10/17 at 07:30; Stop 01/10/17 at 18:00; Status DC Fentanyl Citrate 50 mcg 50 mcg PRN Q5MIN PRN IV MODERATE PAIN; Start 01/10/17 at 07:30; Stop 01/10/17 at 18:00; Status DC Lactated Ringer's (Iv Lactated Ringers) 1,000 ml @ 30 mls/hr Q24H IV ; Start at 07:28; Stop 01/10/17 at 19:27; Status DC Prochlorperazine Edisylate (Compazine) 5 mg PACU PRN PRN IV NAUSEA, MRX1; Start 01/10/17 at 07:30; Stop 01/10/17 at 18:00; Status DC Desflurane (Suprane) 90 ml STK-MED ONCE IH ; Start 01/10/17 at 09:03; Stop at 09:04; Status DC Fentanyl Citrate (Fentanyl 2ml Vial) 100 mcg STK-MED ONCE .ROUTE ; Start at 09:03; Stop 01/10/17 at 09:04; Status DC Rocuronium Nikolai 50 mg 50 mg STK-MED ONCE .ROUTE ; Start 01/10/17 at 09:03; Stop 01/10/17 at 09:04; Status DC Propofol (Diprivan) 20 ml @ As Directed STK-MED ONCE IV ; Start 01/10/17 at 09:04 ; Stop 01/10/17 at 09:05; Status DC Ondansetron HCl (Zofran) 4 mg STK-MED ONCE .ROUTE ; Start 01/10/17 at 09:04; Stop 01/10/17 at 09:05; Status DC Dexamethasone Sodium Phosphate (Decadron) 20 mg STK-MED ONCE .ROUTE ; Start 01/10 at 09:04; Stop 01/10/17 at 09:05; Status DC Lidocaine HCl (Lidocaine HCl 2% Abboject) 100 mg STK-MED ONCE .ROUTE ; Start 01/10/17 at 09:04; Stop 01/10/17 at 09:05; Status DC Phenylephrine HCl (Rodrigue-Synephrine Inj) 10 mg STK-MED ONCE .ROUTE ; Start at 09:27; Stop 01/10/17 at 09:28; Status DC Fentanyl Citrate (Fentanyl 5ml Vial) 250 mcg STK-MED ONCE .ROUTE ; Start at 10:17; Stop 01/10/17 at 10:18; Status DC Rocuronium Nikolai 50 mg 50 mg STK-MED ONCE .ROUTE ; Start 01/10/17 at 10:26; Stop 01/10/17 at 10:27; Status DC Albumin Human (Plasmanate) 500 ml @ As Directed STK-MED ONCE IV ; Start at 11:32; Stop 01/10/17 at 11:33; Status DC Lorazepam (Ativan) 2 mg STK-MED ONCE .ROUTE ; Start 01/10/17 at 11:38; Stop at 11:39; Status DC Cellulose 1 each 1 each STK-MED ONCE .ROUTE Last administered on 01/10/17t 10:23 ; Start 01/10/17 at 12:09; Stop 01/10/17 at 12:10; Status DC Albumin Human (Plasmanate) 500 ml @ As Directed STK-MED ONCE IV ; Start at 12:14; Stop 01/10/17 at 12:15; Status DC Phenylephrine HCl (Rodrigue-Synephrine Inj) 10 mg STK-MED ONCE .ROUTE ; Start at 12:14; Stop 01/10/17 at 12:15; Status DC Cellulose 1 each STK-MED ONCE .ROUTE Last administered on 01/10/17 10:23; Start 01/10/17 at 12:46; Stop 01/10/17 at 12:47; Status DC Lorazepam (Ativan) 2 mg STK-MED ONCE .ROUTE ; Start 01/10/17 at 12:47; Stop at 12:48; Status DC Phenylephrine HCl (Rodrigue-Synephrine Inj) 10 mg STK-MED ONCE .ROUTE ; Start at 12:55; Stop 01/10/17 at 12:56; Status DC Vasopressin (Vasostrict) 20 unit STK-MED ONCE .ROUTE ; Start 01/10/17 at 12:58; Stop 01/10/17 at 12:59; Status DC Norepinephrine Bitartrate (Levophed Vial) 4 mg STK-MED ONCE IV ; Start 01/10/17 at 13:00; Stop 01/10/17 at 13:01; Status DC Norepinephrine Bitartrate (Levophed Vial) 4 mg STK-MED ONCE IV ; Start 01/10/17 at 13:00; Stop 01/10/17 at 13:01; Status DC Rocuronium Nikolai (Zemuron) 50 mg STK-MED ONCE .ROUTE ; Start 01/10/17 at 13:30 ; Stop 01/10/17 at 13:31; Status DC Famotidine (Pepcid) 20 mg QHS IVP ; Start 01/10/17 at 21:00; Stop 01/11/17 at 08: 15; Status DC Sodium Chloride 3 ml 3 ml QSHIFT PRN IV AFTER MEDS AND BLOOD DRAWS; Start at 13:45 Lactated Ringer's (Iv Lactated Ringers) 1,000 ml @ 100 mls/hr Q10H IV Last administered on 01/12/17 05:17; Start 01/10/17 at 13:43 Morphine Sulfate 1 mg PRN Q1HR PRN IV PAIN Last administered on 01/10/17 17:41 ; Start 01/10/17 at 13:45 Ondansetron HCl (Zofran) 4 mg PRN Q6HRS PRN IV NAUESA, 1ST CHOICE; Start at 13:45 Cellulose 2 each STK-MED ONCE TP Last administered on 01/10/17 10:23; Start 01/10/17 at 10:23; Stop 01/10/17 at 14:25; Status DC Lorazepam (Ativan) 2 mg STK-MED ONCE .ROUTE ; Start 01/10/17 at 20:59; Stop at 21:00; Status DC Rocuronium Nikolai 50 mg 50 mg STK-MED ONCE .ROUTE ; Start 01/10/17 at 21:30; Stop 01/10/17 at 21:31; Status DC Cefoxitin Sodium (Mefoxin 2gm Ivpb For Omni) 100 ml @ As Directed STK-MED ONCE IV ; Start 01/10/17 at 21:45; Stop 01/10/17 at 21:46; Status DC Cellulose 1 each STK-MED ONCE .ROUTE Last administered on 01/10/17 21:47; Start 01/10/17 at 21:48; Stop 01/10/17 at 21:49; Status DC Cellulose 2 each STK-MED ONCE TP Last administered on 01/10/17 21:47; Start 01/10/17 at 21:47; Stop 01/10/17 at 22:14; Status DC Sodium Chloride 3 ml 3 ml QSHIFT PRN IV AFTER MEDS AND BLOOD DRAWS; Start at 22:30 Fentanyl Citrate 30 ml @ 0 mls/hr CONT PRN IV PROTOCOL Last administered on 03:21; Start 01/10/17 at 22:30 Propofol (Diprivan) 100 ml @ 0 mls/hr CONT PRN IV PER PROTOCOL Last administered on 01/11/17 19:52; Start 01/10/17 at 22:30 Chlorhexidine Gluconate 15 ml 15 ml BID MM Last administered on 01/12/17 09:37 ; Start 01/11/17 at 09:00 Sodium Chloride 1,000 ml @ 1,000 mls/hr 1X ONCE IV Last administered on 02:30; Start 01/11/17 at 02:30; Stop 01/11/17 at 03:29; Status DC Levothyroxine Sodium 25 mcg/ Sodium Chloride 5 ml @ 100 mls/hr DAILY IVP Last administered on 01/12/17 09:37; Start 01/11/17 at 09:00 Sodium Chloride (Iv Sodium Chloride 0.9% 500ml Bag) 500 ml @ 500 mls/hr 1X ONCE IV Last administered on 01/11/17 09:45; Start 01/11/17 at 09:45; Stop at 10:44; Status DC Heparin Sodium (Porcine) 5,000 unit Q8HRS SQ ; Start 01/11/17 at 14:00; Stop 01/11 at 16:45; Status DC Info 1 each 1 each PRN DAILY PRN MC SEE COMMENTS Last administered on 01/11/17 13:53; Start 01/11/17 at 10:15 Norepinephrine Bitartrate 8 mg/ Sodium Chloride 258 ml @ 0 mls/hr CONT PRN IV SEE I/O RECORD Last administered on 01/11/17 12:58; Start 01/11/17 at 11:15 Lactated Ringer's 500 ml @ 500 mls/hr PRN Q2HRS PRN IV HYPOTENTION; Start 01/11 at 13:15 Sodium Chloride 500 ml @ 500 mls/hr PRN Q2HR PRN IV hypotention; Start at 13:15 Sodium Acetate/ Potassium Acetate/ Potassium Phosphate/ Magnesium Sulfate/ Calcium Gluconate/ Chromium/Copper/ Manganese/Seleni/ Zn/Total Parenteral Nutrition/Amino Acids/Dextrose/ Fat Emulsion Intravenous (Potassium Phosphate/ Calcium Gluconate/ Multitrace-5 Conc/ Tpn - Tpn Flu... 1,512 ml @ 63 mls/hr TPN CONT IV Last administered on 01/11/17 21:39; Start 01/11/17 at 22:00; Stop 01/12/17 at 21:59 Info 1 each PRN DAILY PRN MC SEE COMMENTS; Start 01/11/17 at 13:45; Status UNV Cefoxitin Sodium (Mefoxin 2gm Ivpb For Omni) 4 gm STK-MED ONCE IV ; Start at 12:00; Stop 01/12/17 at 08:16; Status DC Active Scripts Active Reported Pred Forte (Prednisolone Acetate) 1 Ml Drops.susp 1 Ml OU BID PRN Visine Allergy Relief Drop (Tetrahydrozoline Hcl/Zn Sulf) 15 Ml Drops 1 Drop OU PRN Thera Tears (Carboxymethylcellulose Sodium) 15 Ml Drops 1 Drop OU PRN Jaime-128 (Sodium Chloride) 15 Ml Drops 1 Drop OU PRN Tramadol Hcl 100 Mg Tbmp.24hr 100 Mg PO Q6H PRN Tramadol Hcl 50 Mg Tablet 50 Mg PO Q6H PRN Zyrtec (Cetirizine Hcl) 10 Mg Tablet 10 Mg PO DAILY Nasacort (Triamcinolone Acetonide) 10.8 Ml [place] 2 [place] NS DAILY Proair Hfa Inhaler (Albuterol Sulfate) 8.5 Gm Hfa.aer.ad 2 Puff INH QID Mucinex (Guaifenesin) 600 Mg Tablet.er 600 Mg PO Q8HRS PRN Levothyroxine Sodium 50 Mcg Tablet 50 Mcg PO DAILYAC Dyazide 37.5-25 Capsule (Triamterene/Hydrochlorothiazid) 1 Each Capsule 1 Cap PO DAILY Bystolic (Nebivolol) 5 Mg Tablet 5 Mg PO DAILY Vitals/I & O Vital Sign - Last 24 Hours 01/11/17 01/11/17 01/11/17 01/11/17 13:00 14:00 14:18 14:33 Temp 97.8 97.4 97.8 97.4 Pulse 108 108 109 107 Resp 17 15 15 17 B/P 134/50 112/45 112/39 123/42 Pulse Ox 100 100 O2 Delivery Ventilator Ventilator 01/11/17 01/11/17 01/11/17 01/11/17 15:00 15:25 15:36 15:48 Temp 97.3 97.3 97.3 97.3 Pulse 104 103 104 Resp 15 15 B/P 118/52 125/46 138/43 Pulse Ox 100 100 O2 Delivery Ventilator Ventilator 01/11/17 01/11/17 01/11/17 01/11/17 16:00 16:00 16:00 16:03 Temp 97.3 97.5 97.3 97.5 Pulse 102 102 Resp 18 16 B/P 138/54 138/55 Pulse Ox 100 O2 Delivery Mechanical Ventilator Ventilator 01/11/17 01/11/17 01/11/17 01/11/17 16:53 17:00 18:00 19:00 Temp 97.6 97.6 Pulse 104 104 112 105 Resp 12 20 16 16 B/P 122/67 164/66 150/68 147/68 Pulse Ox 100 100 100 O2 Delivery Ventilator Ventilator Ventilator 01/11/17 01/11/17 01/11/17 01/11/17 20:00 20:00 20:00 20:17 Temp 98.6 98.6 Pulse 100 104 Resp 16 B/P 159/62 142/67 Pulse Ox 100 100 O2 Delivery Ventilator Mechanical Ventilator Ventilator 01/11/17 01/11/17 01/11/17 01/11/17 21:00 21:38 22:00 23:00 Pulse 108 111 99 98 Resp 16 16 16 B/P 135/62 122/58 138/64 139/64 Pulse Ox 100 100 100 O2 Delivery Ventilator Ventilator Ventilator 01/12/17 01/12/17 01/12/17 01/12/17 00:00 00:00 00:00 00:17 Temp 98.6 98.6 Pulse 100 100 Resp 16 B/P 139/63 132/64 Pulse Ox 100 100 O2 Delivery Ventilator Mechanical Ventilator Ventilator 01/12/17 01/12/17 01/12/17 01/12/17 01:00 02:00 03:00 03:05 Pulse 102 102 102 Resp 16 16 16 B/P 155/68 149/66 150/67 Pulse Ox 100 100 100 100 O2 Delivery Ventilator Ventilator Ventilator Ventilator 01/12/17 01/12/17 01/12/17 01/12/17 03:21 03:51 04:00 04:00 Temp 98.5 98.5 Pulse 101 Resp 16 16 16 B/P 143/64 Pulse Ox 99 100 O2 Delivery Ventilator Ventilator Ventilator Mechanical Ventilator 01/12/17 01/12/17 01/12/17 01/12/17 04:00 05:00 05:00 05:44 Pulse 102 104 105 Resp 16 16 B/P 138/63 118/73 140/63 Pulse Ox 100 100 100 O2 Delivery Ventilator Ventilator Ventilator 01/12/17 01/12/17 01/12/17 01/12/17 06:00 07:00 07:23 08:00 Pulse 103 100 106 Resp 16 12 B/P 124/75 123/76 132/60 Pulse Ox 100 100 100 O2 Delivery Ventilator Ventilator Ventilator 01/12/17 01/12/17 01/12/17 01/12/17 08:00 08:00 09:00 09:20 Temp 98.3 98.3 Pulse 106 109 Resp 12 12 B/P 132/60 133/61 Pulse Ox 100 100 100 O2 Delivery Ventilator Mechanical Ventilator Ventilator Ventilator 01/12/17 01/12/17 01/12/17 01/12/17 10:00 11:00 11:29 12:00 Pulse 106 106 Resp 12 12 B/P 118/54 119/56 Pulse Ox 99 100 100 O2 Delivery Ventilator Ventilator Ventilator Mechanical Ventilator 01/12/17 12:00 Temp 98.4 98.4 Pulse 105 Resp 12 B/P 122/66 Pulse Ox 100 O2 Delivery Ventilator Intake and Output 01/11/17 01/11/17 01/12/17 15:00 23:00 07:00 Intake Total 2410 ml 1226 ml Output Total 466 ml 1081 ml 1161 ml Balance -466 ml 1329 ml 65 ml STEF COOPER MD Jan 12, 2017 12:29
--- NOTE | 2017-01-12 13:11 | PDOC ---
Objective: Objective: D/w RN, Dr. Santos. Vital Signs: Vital Signs Date Time Temp Pulse Resp B/P Pulse Ox O2 Delivery O2 Flow Rate FiO2 01/12/17 13:00 114 13 132/68 100 Ventilator 01/12/17 12:00 98.4 98.4 Labs: Laboratory Tests Test 01/12/17 01:00 01/12/17 05:30 01/12/17 07:20 Nasal Screen MRSA (PCR) Negative White Blood Count 24.6x10^3/uL Red Blood Count 3.49x10^6/uL Hemoglobin 10.1g/dL Hematocrit 29.2% Mean Corpuscular Volume 84fL Mean Corpuscular Hemoglobin 29pg Mean Corpuscular Hemoglobin Concent 34g/dL Red Cell Distribution Width 15.2% Platelet Count 147x10^3/uL Neutrophils (%) (Auto) 90% Lymphocytes (%) (Auto) 6% Monocytes (%) (Auto) 4% Eosinophils (%) (Auto) 0% Basophils (%) (Auto) 0% Neutrophils # (Auto) 22.1x10^3uL Lymphocytes # (Auto) 1.6x10^3/uL Monocytes # (Auto) 0.9x10^3/uL Eosinophils # (Auto) 0.0x10^3/uL Basophils # (Auto) 0.0x10^3/uL Segmented Neutrophils % 73% Band Neutrophils % 21% Lymphocytes % 3% Monocytes % 3% Platelet Estimate Adequate Sodium Level 141mmol/L Potassium Level 3.7mmol/L Chloride Level 109mmol/L Carbon Dioxide Level 22mmol/L Anion Gap 10 Blood Urea Nitrogen 36mg/dL Creatinine 1.8mg/dL Estimated GFR (Cockcroft-Gault) 27.1 BUN/Creatinine Ratio 20 Glucose Level 267mg/dL Calcium Level 7.3mg/dL Phosphorus Level 2.5mg/dL Magnesium Level 1.5mg/dL Total Bilirubin 0.6mg/dL Aspartate Amino Transf (AST/SGOT) 2719U/L Alanine Aminotransferase (ALT/SGPT) 2277U/L Alkaline Phosphatase 64U/L Total Protein 4.0g/dL Albumin 1.6g/dL Albumin/Globulin Ratio 0.7 Triglycerides Level 140mg/dL O2 Saturation 98% Arterial Blood pH 7.43 Arterial Blood pCO2 at Patient Temp 31mmHg Arterial Blood pO2 at Patient Temp 118mmHg Arterial Blood HCO3 20mmol/L Arterial Blood Base Excess -4mmol/L FiO2 30 PE: GEN: NAD LUNGS: vent HEART: tachycardic ABD: +ileostomy, bag w/ dark brown liquid NEURO/PSYCH: awake A/P: Metastatic pancreatic mass -s/p exp lap, BEINTA, partial colectomy, extended small-bowel resection, left nephrectomy, splenectomy, distal pancreatectomy, liver biopsy 01/10 -s/p re-exploration 01/11 -intubated in ICU -anemia s/p multiple transfusions -onc following, no path -- Will follow. RED WINSTON Jan 12, 2017 13:11
[2017-01-12] MEDS ORDERED: DEXTROSE 50% 25 GM / 50ML DISP.SYRIN. IV PRN (13:30)
[2017-01-12] MEDS: TPN PER PHARMACY MC PRN (13:41)
[2017-01-12] MEDS ORDERED: POTASSIUM PHOSPHATE DIBASIC 10 MMOL in IV NORMAL SALINE 100ML 100 ML IV ONE (14:00)
[2017-01-12] MEDS ORDERED: MAGNESIUM SULFATE 2GM 50 ML IV ONE (14:00)
--- NOTE | 2017-01-12 14:14 | PDOC ---
PULMONARY PROGRESS NOTES Subjective pt sedated on vent Vitals Vital Signs Date Time Temp Pulse Resp B/P Pulse Ox O2 Delivery O2 Flow Rate FiO2 01/12/17 13:00 114 13 132/68 100 Ventilator 01/12/17 12:00 98.4 98.4 Lungs: Clear Cardiovascular: S1, S2 Abdomen: Other (dressiing in place) Extremities: No Edema Skin: Warm, Dry Labs Laboratory Tests Test 01/10/17 14:57 01/10/17 15:15 01/10/17 15:52 01/10/17 19:25 Hematocrit 18.4% (36.0-47.0) 23.6% (36.0-47.0) Platelet Count 20x10^3/uL (140-400) 210x10^3/uL (140-400) Sodium Level 134mmol/L (136-145) Potassium Level 4.5mmol/L (3.5-5.1) Chloride Level 105mmol/L (98-107) Carbon Dioxide Level 22mmol/L (21-32) Anion Gap 7 (6-14) Blood Urea Nitrogen 20mg/dL (7-20) Creatinine 1.2mg/dL (0.6-1.0) Estimated GFR (Cockcroft-Gault) 43.3 Glucose Level 318mg/dL (70-99) Calcium Level 6.7mg/dL (8.5-10.1) O2 Saturation 99% (92-99) Arterial Blood pH 7.48 (7.35-7.45) Arterial Blood pCO2 at Patient Temp 27mmHg (35-46) Arterial Blood pO2 at Patient Temp 450mmHg (65-108) Arterial Blood HCO3 19mmol/L (21-28) Arterial Blood Base Excess -4mmol/L (-3-3) FiO2 100 Lactic Acid Level 2.8mmol/L (0.4-2.0) White Blood Count 5.5x10^3/uL (4.0-11.0) Red Blood Count 2.82x10^6/uL (3.50-5.40) Hemoglobin 8.0g/dL (12.0-15.5) Mean Corpuscular Volume 84fL (79-100) Mean Corpuscular Hemoglobin 28pg (25-35) Mean Corpuscular Hemoglobin Concent 34g/dL (31-37) Red Cell Distribution Width 14.4% (11.5-14.5) Neutrophils (%) (Auto) 89% (31-73) Lymphocytes (%) (Auto) 4% (24-48) Monocytes (%) (Auto) 7% (0-9) Eosinophils (%) (Auto) 0% (0-3) Basophils (%) (Auto) 0% (0-3) Neutrophils # (Auto) 4.9x10^3uL (1.8-7.7) Lymphocytes # (Auto) 0.2x10^3/uL (1.0-4.8) Monocytes # (Auto) 0.4x10^3/uL (0.0-1.1) Eosinophils # (Auto) 0.0x10^3/uL (0.0-0.7) Basophils # (Auto) 0.0x10^3/uL (0.0-0.2) Segmented Neutrophils % 34% (35-66) Band Neutrophils % 55% (0-9) Lymphocytes % 7% (24-48) Monocytes % 4% (0-10) Platelet Estimate Adequate (ADEQUATE) Large Platelets Occ Giant Platelets Occ Prothrombin Time 14.9SEC (11.7-14.0) Prothromb Time International Ratio 1.2 (0.8-1.1) Activated Partial Thromboplast Time 31SEC (24-38) Test 01/10/17 23:17 01/11/17 05:00 01/11/17 05:55 01/11/17 06:00 O2 Saturation 98% (92-99) 98% (92-99) Arterial Blood pH 7.46 (7.35-7.45) 7.46 (7.35-7.45) Arterial Blood pCO2 at Patient Temp 28mmHg (35-46) 24mmHg (35-46) Arterial Blood pO2 at Patient Temp 167mmHg (65-108) 130mmHg (65-108) Arterial Blood HCO3 20mmol/L (21-28) 17mmol/L (21-28) Arterial Blood Base Excess -4mmol/L (-3-3) -6mmol/L (-3-3) Oxyhemoglobin 98.2% Methemoglobin 0.2% (0.0-1.9) Carbon Monoxide, Quantitative 0.0% (0.0-1.9) FiO2 40 30 Phosphorus Level 4.0mg/dL (2.6-4.7) Magnesium Level 1.6mg/dL (1.8-2.4) White Blood Count 16.3x10^3/uL (4.0-11.0) Red Blood Count 2.70x10^6/uL (3.50-5.40) Hemoglobin 7.5g/dL (12.0-15.5) Hematocrit 22.6% (36.0-47.0) Mean Corpuscular Volume 84fL (79-100) Mean Corpuscular Hemoglobin 28pg (25-35) Mean Corpuscular Hemoglobin Concent 33g/dL (31-37) Red Cell Distribution Width 14.7% (11.5-14.5) Platelet Count 201x10^3/uL (140-400) Neutrophils (%) (Auto) 89% (31-73) Lymphocytes (%) (Auto) 5% (24-48) Monocytes (%) (Auto) 6% (0-9) Eosinophils (%) (Auto) 0% (0-3) Basophils (%) (Auto) 0% (0-3) Neutrophils # (Auto) 14.4x10^3uL (1.8-7.7) Lymphocytes # (Auto) 0.8x10^3/uL (1.0-4.8) Monocytes # (Auto) 1.0x10^3/uL (0.0-1.1) Eosinophils # (Auto) 0.0x10^3/uL (0.0-0.7) Basophils # (Auto) 0.0x10^3/uL (0.0-0.2) Sodium Level 140mmol/L (136-145) Potassium Level 4.4mmol/L (3.5-5.1) Chloride Level 109mmol/L (98-107) Carbon Dioxide Level 19mmol/L (21-32) Anion Gap 12 (6-14) Blood Urea Nitrogen 23mg/dL (7-20) Creatinine 1.4mg/dL (0.6-1.0) Estimated GFR (Cockcroft-Gault) 36.3 BUN/Creatinine Ratio 16 (6-20) Glucose Level 183mg/dL (70-99) Calcium Level 7.0mg/dL (8.5-10.1) Total Bilirubin 1.0mg/dL (0.2-1.0) Aspartate Amino Transf (AST/SGOT) 99U/L (15-37) Alanine Aminotransferase (ALT/SGPT) 66U/L (14-59) Alkaline Phosphatase 51U/L (46-116) Total Protein 4.6g/dL (6.4-8.2) Albumin 2.1g/dL (3.4-5.0) Albumin/Globulin Ratio 0.8 (1.0-1.7) Test 01/11/17 12:30 01/12/17 01:00 01/12/17 05:30 01/12/17 07:20 White Blood Count 19.5x10^3/uL (4.0-11.0) 24.6x10^3/uL (4.0-11.0) Red Blood Count 2.08x10^6/uL (3.50-5.40) 3.49x10^6/uL (3.50-5.40) Hemoglobin 5.8g/dL (12.0-15.5) 10.1g/dL (12.0-15.5) Hematocrit 17.8% (36.0-47.0) 29.2% (36.0-47.0) Mean Corpuscular Volume 85fL (79-100) 84fL (79-100) Mean Corpuscular Hemoglobin 28pg (25-35) 29pg (25-35) Mean Corpuscular Hemoglobin Concent 33g/dL (31-37) 34g/dL (31-37) Red Cell Distribution Width 15.4% (11.5-14.5) 15.2% (11.5-14.5) Platelet Count 158x10^3/uL (140-400) 147x10^3/uL (140-400) Neutrophils (%) (Auto) 89% (31-73) 90% (31-73) Lymphocytes (%) (Auto) 5% (24-48) 6% (24-48) Monocytes (%) (Auto) 6% (0-9) 4% (0-9) Eosinophils (%) (Auto) 0% (0-3) 0% (0-3) Basophils (%) (Auto) 0% (0-3) 0% (0-3) Neutrophils # (Auto) 17.3x10^3uL (1.8-7.7) 22.1x10^3uL (1.8-7.7) Lymphocytes # (Auto) 0.9x10^3/uL (1.0-4.8) 1.6x10^3/uL (1.0-4.8) Monocytes # (Auto) 1.2x10^3/uL (0.0-1.1) 0.9x10^3/uL (0.0-1.1) Eosinophils # (Auto) 0.0x10^3/uL (0.0-0.7) 0.0x10^3/uL (0.0-0.7) Basophils # (Auto) 0.0x10^3/uL (0.0-0.2) 0.0x10^3/uL (0.0-0.2) Sodium Level 142mmol/L (136-145) 141mmol/L (136-145) Potassium Level 3.9mmol/L (3.5-5.1) 3.7mmol/L (3.5-5.1) Chloride Level 111mmol/L (98-107) 109mmol/L (98-107) Carbon Dioxide Level 18mmol/L (21-32) 22mmol/L (21-32) Anion Gap 13 (6-14) 10 (6-14) Blood Urea Nitrogen 27mg/dL (7-20) 36mg/dL (7-20) Creatinine 1.6mg/dL (0.6-1.0) 1.8mg/dL (0.6-1.0) Estimated GFR (Cockcroft-Gault) 31.1 27.1 BUN/Creatinine Ratio 17 (6-20) 20 (6-20) Glucose Level 142mg/dL (70-99) 267mg/dL (70-99) Calcium Level 6.6mg/dL (8.5-10.1) 7.3mg/dL (8.5-10.1) Total Bilirubin 1.0mg/dL (0.2-1.0) 0.6mg/dL (0.2-1.0) Aspartate Amino Transf (AST/SGOT) 1208U/L (15-37) 2719U/L (15-37) Alanine Aminotransferase (ALT/SGPT) 749U/L (14-59) 2277U/L (14-59) Alkaline Phosphatase 42U/L (46-116) 64U/L (46-116) Total Protein 3.6g/dL (6.4-8.2) 4.0g/dL (6.4-8.2) Albumin 1.6g/dL (3.4-5.0) 1.6g/dL (3.4-5.0) Albumin/Globulin Ratio 0.8 (1.0-1.7) 0.7 (1.0-1.7) Nasal Screen MRSA (PCR) Negative (Negative) Segmented Neutrophils % 73% (35-66) Band Neutrophils % 21% (0-9) Lymphocytes % 3% (24-48) Monocytes % 3% (0-10) Platelet Estimate Adequate (ADEQUATE) Phosphorus Level 2.5mg/dL (2.6-4.7) Magnesium Level 1.5mg/dL (1.8-2.4) Triglycerides Level 140mg/dL (0-150) O2 Saturation 98% (92-99) Arterial Blood pH 7.43 (7.35-7.45) Arterial Blood pCO2 at Patient Temp 31mmHg (35-46) Arterial Blood pO2 at Patient Temp 118mmHg (65-108) Arterial Blood HCO3 20mmol/L (21-28) Arterial Blood Base Excess -4mmol/L (-3-3) FiO2 30 Laboratory Tests Test 01/12/17 01:00 01/12/17 05:30 01/12/17 07:20 Nasal Screen MRSA (PCR) Negative (Negative) White Blood Count 24.6x10^3/uL (4.0-11.0) Red Blood Count 3.49x10^6/uL (3.50-5.40) Hemoglobin 10.1g/dL (12.0-15.5) Hematocrit 29.2% (36.0-47.0) Mean Corpuscular Volume 84fL (79-100) Mean Corpuscular Hemoglobin 29pg (25-35) Mean Corpuscular Hemoglobin Concent 34g/dL (31-37) Red Cell Distribution Width 15.2% (11.5-14.5) Platelet Count 147x10^3/uL (140-400) Neutrophils (%) (Auto) 90% (31-73) Lymphocytes (%) (Auto) 6% (24-48) Monocytes (%) (Auto) 4% (0-9) Eosinophils (%) (Auto) 0% (0-3) Basophils (%) (Auto) 0% (0-3) Neutrophils # (Auto) 22.1x10^3uL (1.8-7.7) Lymphocytes # (Auto) 1.6x10^3/uL (1.0-4.8) Monocytes # (Auto) 0.9x10^3/uL (0.0-1.1) Eosinophils # (Auto) 0.0x10^3/uL (0.0-0.7) Basophils # (Auto) 0.0x10^3/uL (0.0-0.2) Segmented Neutrophils % 73% (35-66) Band Neutrophils % 21% (0-9) Lymphocytes % 3% (24-48) Monocytes % 3% (0-10) Platelet Estimate Adequate (ADEQUATE) Sodium Level 141mmol/L (136-145) Potassium Level 3.7mmol/L (3.5-5.1) Chloride Level 109mmol/L (98-107) Carbon Dioxide Level 22mmol/L (21-32) Anion Gap 10 (6-14) Blood Urea Nitrogen 36mg/dL (7-20) Creatinine 1.8mg/dL (0.6-1.0) Estimated GFR (Cockcroft-Gault) 27.1 BUN/Creatinine Ratio 20 (6-20) Glucose Level 267mg/dL (70-99) Calcium Level 7.3mg/dL (8.5-10.1) Phosphorus Level 2.5mg/dL (2.6-4.7) Magnesium Level 1.5mg/dL (1.8-2.4) Total Bilirubin 0.6mg/dL (0.2-1.0) Aspartate Amino Transf (AST/SGOT) 2719U/L (15-37) Alanine Aminotransferase (ALT/SGPT) 2277U/L (14-59) Alkaline Phosphatase 64U/L (46-116) Total Protein 4.0g/dL (6.4-8.2) Albumin 1.6g/dL (3.4-5.0) Albumin/Globulin Ratio 0.7 (1.0-1.7) Triglycerides Level 140mg/dL (0-150) O2 Saturation 98% (92-99) Arterial Blood pH 7.43 (7.35-7.45) Arterial Blood pCO2 at Patient Temp 31mmHg (35-46) Arterial Blood pO2 at Patient Temp 118mmHg (65-108) Arterial Blood HCO3 20mmol/L (21-28) Arterial Blood Base Excess -4mmol/L (-3-3) FiO2 30 Medications Active Scripts Medications Dose Route/Sig Days Date Category Pred Forte (Prednisolone Acetate) 1 Ml Drops.susp 1 Ml OU BID PRN 01/09/17 Reported Visine Allergy Relief Drop (Tetrahydrozoline Hcl/Zn Sulf) 15 Ml Drops 1 Drop OU PRN 01/09/17 Reported Thera Tears (Carboxymethylcellulose Sodium) 15 Ml Drops 1 Drop OU PRN 01/09/17 Reported Jaime-128 (Sodium Chloride) 15 Ml Drops 1 Drop OU PRN 01/09/17 Reported Tramadol Hcl 100 Mg Tbmp.24hr 100 Mg PO Q6H PRN 01/08/17 Reported Tramadol Hcl 50 Mg Tablet 50 Mg PO Q6H PRN 01/08/17 Reported Zyrtec (Cetirizine Hcl) 10 Mg Tablet 10 Mg PO DAILY 01/08/17 Reported Nasacort (Triamcinolone Acetonide) 10.8 Ml Devers 2 Devers NS DAILY 01/08/17 Reported Proair Hfa Inhaler (Albuterol Sulfate) 8.5 Gm Hfa.aer.ad 2 Puff INH QID 01/08/17 Reported Mucinex (Guaifenesin) 600 Mg Tablet.er 600 Mg PO Q8HRS PRN 01/08/17 Reported Levothyroxine Sodium 50 Mcg Tablet 50 Mcg PO DAILYAC 01/08/17 Reported Dyazide 37.5-25 Capsule (Triamterene/Hydrochlorothiazid) 1 Each Capsule 1 Cap PO DAILY 01/08/17 Reported Bystolic (Nebivolol) 5 Mg Tablet 5 Mg PO DAILY 01/08/17 Reported Impression . IMPRESSION: 1. Expected Acute respiratory failure following surgery 2. Abnormal CT of the chest, 3 mm left upper lobe nodule. 3. Pancreatic mass status post exploratory laparotomy, extensive lysis of adhesions, partial colectomy, extended small bowel resection, left nephrectomy, splenectomy, distal pancreatectomy, partial gastrectomy, liver biopsy and ileostomy. 4. Anemia. 5. Acute kidney injury. 6. Asthma. 7. History of hypertension. Plan . 1. Titrate FiO2 to keep O2 saturation 92 2. Continue ventilatory support, abg noted will try trial 3. Pepcid for stress ulcer prophylaxis. 4. Lovenox for DVT prophylaxis. 5. Monitor creatinine very closely. 6. Elevate head of bed. 7. follow surgery input 8. Repeat CXR 9. monitor 3 mm nodule. will need repeat ct in a few months. D/W RN ml [place] RT HERMINIA KINGSLEY MD Jan 12, 2017 14:14
[2017-01-12] MEDS: IV NORMAL SALINE 1000ML BAG 1,000 ML IV SCH (14:15)
[2017-01-12] MEDS: PROPOFOL 100 ML IV PRN (14:16)
[2017-01-12 14:47] LABS: INR 1.5 (0.8-1.1); PROTHROMBIN TIME PATIENT 17.6 SEC (11.7-14.0)
--- NOTE | 2017-01-12 16:08 | PDOC ---
SURGICAL PROGRESS NOTE Subjective (Bishop Jenkins) pt seen earlier today on vent, preparing for T-tube trial Vital Signs Vital Signs Date Time Temp Pulse Resp B/P Pulse Ox O2 Delivery O2 Flow Rate FiO2 01/12/17 15:08 100 Ventilator 01/12/17 14:00 120 12 118/61 01/12/17 12:00 98.4 98.4 I&O Intake and Output 01/12/17 07:00 Intake Total 3636 ml Output Total 2708 ml Balance 928 ml IV Total 3636 ml Output Urine Total 218 ml Gastric Drainage Total 780 ml Drainage Total 1710 ml PATIENT HAS A RDZ: Yes (accurate I and O ) General: Alert, No acute distress, Other (nods head to questions) Abdomen: Soft, Other (dressing intact) Labs Laboratory Tests Test 01/10/17 19:25 01/10/17 23:17 01/11/17 05:00 01/11/17 05:55 White Blood Count 5.5x10^3/uL (4.0-11.0) 16.3x10^3/uL (4.0-11.0) Red Blood Count 2.82x10^6/uL (3.50-5.40) 2.70x10^6/uL (3.50-5.40) Hemoglobin 8.0g/dL (12.0-15.5) 7.5g/dL (12.0-15.5) Hematocrit 23.6% (36.0-47.0) 22.6% (36.0-47.0) Mean Corpuscular Volume 84fL (79-100) 84fL (79-100) Mean Corpuscular Hemoglobin 28pg (25-35) 28pg (25-35) Mean Corpuscular Hemoglobin Concent 34g/dL (31-37) 33g/dL (31-37) Red Cell Distribution Width 14.4% (11.5-14.5) 14.7% (11.5-14.5) Platelet Count 210x10^3/uL (140-400) 201x10^3/uL (140-400) Neutrophils (%) (Auto) 89% (31-73) 89% (31-73) Lymphocytes (%) (Auto) 4% (24-48) 5% (24-48) Monocytes (%) (Auto) 7% (0-9) 6% (0-9) Eosinophils (%) (Auto) 0% (0-3) 0% (0-3) Basophils (%) (Auto) 0% (0-3) 0% (0-3) Neutrophils # (Auto) 4.9x10^3uL (1.8-7.7) 14.4x10^3uL (1.8-7.7) Lymphocytes # (Auto) 0.2x10^3/uL (1.0-4.8) 0.8x10^3/uL (1.0-4.8) Monocytes # (Auto) 0.4x10^3/uL (0.0-1.1) 1.0x10^3/uL (0.0-1.1) Eosinophils # (Auto) 0.0x10^3/uL (0.0-0.7) 0.0x10^3/uL (0.0-0.7) Basophils # (Auto) 0.0x10^3/uL (0.0-0.2) 0.0x10^3/uL (0.0-0.2) Segmented Neutrophils % 34% (35-66) Band Neutrophils % 55% (0-9) Lymphocytes % 7% (24-48) Monocytes % 4% (0-10) Platelet Estimate Adequate (ADEQUATE) Large Platelets Occ Giant Platelets Occ Prothrombin Time 14.9SEC (11.7-14.0) Prothromb Time International Ratio 1.2 (0.8-1.1) Activated Partial Thromboplast Time 31SEC (24-38) O2 Saturation 98% (92-99) Arterial Blood pH 7.46 (7.35-7.45) Arterial Blood pCO2 at Patient Temp 28mmHg (35-46) Arterial Blood pO2 at Patient Temp 167mmHg (65-108) Arterial Blood HCO3 20mmol/L (21-28) Arterial Blood Base Excess -4mmol/L (-3-3) Oxyhemoglobin 98.2% Methemoglobin 0.2% (0.0-1.9) Carbon Monoxide, Quantitative 0.0% (0.0-1.9) FiO2 40 Phosphorus Level 4.0mg/dL (2.6-4.7) Magnesium Level 1.6mg/dL (1.8-2.4) Sodium Level 140mmol/L (136-145) Potassium Level 4.4mmol/L (3.5-5.1) Chloride Level 109mmol/L (98-107) Carbon Dioxide Level 19mmol/L (21-32) Anion Gap 12 (6-14) Blood Urea Nitrogen 23mg/dL (7-20) Creatinine 1.4mg/dL (0.6-1.0) Estimated GFR (Cockcroft-Gault) 36.3 BUN/Creatinine Ratio 16 (6-20) Glucose Level 183mg/dL (70-99) Calcium Level 7.0mg/dL (8.5-10.1) Total Bilirubin 1.0mg/dL (0.2-1.0) Aspartate Amino Transf (AST/SGOT) 99U/L (15-37) Alanine Aminotransferase (ALT/SGPT) 66U/L (14-59) Alkaline Phosphatase 51U/L (46-116) Total Protein 4.6g/dL (6.4-8.2) Albumin 2.1g/dL (3.4-5.0) Albumin/Globulin Ratio 0.8 (1.0-1.7) Test 01/11/17 06:00 01/11/17 12:30 01/12/17 01:00 01/12/17 05:30 O2 Saturation 98% (92-99) Arterial Blood pH 7.46 (7.35-7.45) Arterial Blood pCO2 at Patient Temp 24mmHg (35-46) Arterial Blood pO2 at Patient Temp 130mmHg (65-108) Arterial Blood HCO3 17mmol/L (21-28) Arterial Blood Base Excess -6mmol/L (-3-3) FiO2 30 White Blood Count 19.5x10^3/uL (4.0-11.0) 24.6x10^3/uL (4.0-11.0) Red Blood Count 2.08x10^6/uL (3.50-5.40) 3.49x10^6/uL (3.50-5.40) Hemoglobin 5.8g/dL (12.0-15.5) 10.1g/dL (12.0-15.5) Hematocrit 17.8% (36.0-47.0) 29.2% (36.0-47.0) Mean Corpuscular Volume 85fL (79-100) 84fL (79-100) Mean Corpuscular Hemoglobin 28pg (25-35) 29pg (25-35) Mean Corpuscular Hemoglobin Concent 33g/dL (31-37) 34g/dL (31-37) Red Cell Distribution Width 15.4% (11.5-14.5) 15.2% (11.5-14.5) Platelet Count 158x10^3/uL (140-400) 147x10^3/uL (140-400) Neutrophils (%) (Auto) 89% (31-73) 90% (31-73) Lymphocytes (%) (Auto) 5% (24-48) 6% (24-48) Monocytes (%) (Auto) 6% (0-9) 4% (0-9) Eosinophils (%) (Auto) 0% (0-3) 0% (0-3) Basophils (%) (Auto) 0% (0-3) 0% (0-3) Neutrophils # (Auto) 17.3x10^3uL (1.8-7.7) 22.1x10^3uL (1.8-7.7) Lymphocytes # (Auto) 0.9x10^3/uL (1.0-4.8) 1.6x10^3/uL (1.0-4.8) Monocytes # (Auto) 1.2x10^3/uL (0.0-1.1) 0.9x10^3/uL (0.0-1.1) Eosinophils # (Auto) 0.0x10^3/uL (0.0-0.7) 0.0x10^3/uL (0.0-0.7) Basophils # (Auto) 0.0x10^3/uL (0.0-0.2) 0.0x10^3/uL (0.0-0.2) Sodium Level 142mmol/L (136-145) 141mmol/L (136-145) Potassium Level 3.9mmol/L (3.5-5.1) 3.7mmol/L (3.5-5.1) Chloride Level 111mmol/L (98-107) 109mmol/L (98-107) Carbon Dioxide Level 18mmol/L (21-32) 22mmol/L (21-32) Anion Gap 13 (6-14) 10 (6-14) Blood Urea Nitrogen 27mg/dL (7-20) 36mg/dL (7-20) Creatinine 1.6mg/dL (0.6-1.0) 1.8mg/dL (0.6-1.0) Estimated GFR (Cockcroft-Gault) 31.1 27.1 BUN/Creatinine Ratio 17 (6-20) 20 (6-20) Glucose Level 142mg/dL (70-99) 267mg/dL (70-99) Calcium Level 6.6mg/dL (8.5-10.1) 7.3mg/dL (8.5-10.1) Total Bilirubin 1.0mg/dL (0.2-1.0) 0.6mg/dL (0.2-1.0) Aspartate Amino Transf (AST/SGOT) 1208U/L (15-37) 2719U/L (15-37) Alanine Aminotransferase (ALT/SGPT) 749U/L (14-59) 2277U/L (14-59) Alkaline Phosphatase 42U/L (46-116) 64U/L (46-116) Total Protein 3.6g/dL (6.4-8.2) 4.0g/dL (6.4-8.2) Albumin 1.6g/dL (3.4-5.0) 1.6g/dL (3.4-5.0) Albumin/Globulin Ratio 0.8 (1.0-1.7) 0.7 (1.0-1.7) Nasal Screen MRSA (PCR) Negative (Negative) Segmented Neutrophils % 73% (35-66) Band Neutrophils % 21% (0-9) Lymphocytes % 3% (24-48) Monocytes % 3% (0-10) Platelet Estimate Adequate (ADEQUATE) Phosphorus Level 2.5mg/dL (2.6-4.7) Magnesium Level 1.5mg/dL (1.8-2.4) Triglycerides Level 140mg/dL (0-150) Test 01/12/17 07:20 01/12/17 14:32 O2 Saturation 98% (92-99) Arterial Blood pH 7.43 (7.35-7.45) Arterial Blood pCO2 at Patient Temp 31mmHg (35-46) Arterial Blood pO2 at Patient Temp 118mmHg (65-108) Arterial Blood HCO3 20mmol/L (21-28) Arterial Blood Base Excess -4mmol/L (-3-3) FiO2 30 Platelet Count 127x10^3/uL (140-400) Prothrombin Time 17.6SEC (11.7-14.0) Prothromb Time International Ratio 1.5 (0.8-1.1) Activated Partial Thromboplast Time 30SEC (24-38) Fibrinogen 596mg/dL (200-440) D-Dimer (Zoraida) 2.95ug/mlFEU (0.00-0.50) Laboratory Tests Test 01/12/17 01:00 01/12/17 05:30 01/12/17 07:20 01/12/17 14:32 Nasal Screen MRSA (PCR) Negative (Negative) White Blood Count 24.6x10^3/uL (4.0-11.0) Red Blood Count 3.49x10^6/uL (3.50-5.40) Hemoglobin 10.1g/dL (12.0-15.5) Hematocrit 29.2% (36.0-47.0) Mean Corpuscular Volume 84fL (79-100) Mean Corpuscular Hemoglobin 29pg (25-35) Mean Corpuscular Hemoglobin Concent 34g/dL (31-37) Red Cell Distribution Width 15.2% (11.5-14.5) Platelet Count 147x10^3/uL (140-400) 127x10^3/uL (140-400) Neutrophils (%) (Auto) 90% (31-73) Lymphocytes (%) (Auto) 6% (24-48) Monocytes (%) (Auto) 4% (0-9) Eosinophils (%) (Auto) 0% (0-3) Basophils (%) (Auto) 0% (0-3) Neutrophils # (Auto) 22.1x10^3uL (1.8-7.7) Lymphocytes # (Auto) 1.6x10^3/uL (1.0-4.8) Monocytes # (Auto) 0.9x10^3/uL (0.0-1.1) Eosinophils # (Auto) 0.0x10^3/uL (0.0-0.7) Basophils # (Auto) 0.0x10^3/uL (0.0-0.2) Segmented Neutrophils % 73% (35-66) Band Neutrophils % 21% (0-9) Lymphocytes % 3% (24-48) Monocytes % 3% (0-10) Platelet Estimate Adequate (ADEQUATE) Sodium Level 141mmol/L (136-145) Potassium Level 3.7mmol/L (3.5-5.1) Chloride Level 109mmol/L (98-107) Carbon Dioxide Level 22mmol/L (21-32) Anion Gap 10 (6-14) Blood Urea Nitrogen 36mg/dL (7-20) Creatinine 1.8mg/dL (0.6-1.0) Estimated GFR (Cockcroft-Gault) 27.1 BUN/Creatinine Ratio 20 (6-20) Glucose Level 267mg/dL (70-99) Calcium Level 7.3mg/dL (8.5-10.1) Phosphorus Level 2.5mg/dL (2.6-4.7) Magnesium Level 1.5mg/dL (1.8-2.4) Total Bilirubin 0.6mg/dL (0.2-1.0) Aspartate Amino Transf (AST/SGOT) 2719U/L (15-37) Alanine Aminotransferase (ALT/SGPT) 2277U/L (14-59) Alkaline Phosphatase 64U/L (46-116) Total Protein 4.0g/dL (6.4-8.2) Albumin 1.6g/dL (3.4-5.0) Albumin/Globulin Ratio 0.7 (1.0-1.7) Triglycerides Level 140mg/dL (0-150) O2 Saturation 98% (92-99) Arterial Blood pH 7.43 (7.35-7.45) Arterial Blood pCO2 at Patient Temp 31mmHg (35-46) Arterial Blood pO2 at Patient Temp 118mmHg (65-108) Arterial Blood HCO3 20mmol/L (21-28) Arterial Blood Base Excess -4mmol/L (-3-3) FiO2 30 Prothrombin Time 17.6SEC (11.7-14.0) Prothromb Time International Ratio 1.5 (0.8-1.1) Activated Partial Thromboplast Time 30SEC (24-38) Fibrinogen 596mg/dL (200-440) D-Dimer (Zoraida) 2.95ug/mlFEU (0.00-0.50) Problem List Problems Medical Problems: (1) Pancreatic mass Status: Acute Assessment/Plan POD 2 continue supportive care vent per pulmonary Problems: JAMES CHUNG MD Jan 12, 2017 16:08
--- NOTE | 2017-01-12 16:20 | PDOC2 ---
CONSULT Date of Consult Date of Consult DATE: 01/12/17 TIME: 16:14 Reason for Consult Reason for Consult: FREDIS Referring Physician Referring Physician: CHASITYO Identification/Chief Complaint Chief Complaint N/V AND ABD PAIN Source Source: Chart review History of Present Illness Reason for Visit: THIS IS A 81 YR OLD ADMITTED WITH N/V AND ABD PAIN FROM [facility]. PT SUBSEQUENTLY WENT INTO RESP FAILURE. SHE UNDERWENT AN EXP LAP FOR A PANCREATIC MASS AND WAS NOTED TO HAVE DIFFUSE LESIONS. SHE UNDERWENT LYSIS OF ADHESIONS. PARTIAL PANCREAS REMOVAL, LEFT NEPHRECTOMY AND PARTIAL SMALL BOWEL RESECTION ALONG WITH PARTIAL COLECTOMY. UO HAS DECREASED AND HER CR HAS INCREASED TO 1.8. SHE HAS BEEN SOMEWHAT HYPOTENSIVE AND HAS NEEDED ABOUT 8 UNIT OF PRBC Past Medical History Cardiovascular: HTN Pulmonary: Asthma Family History Family History: No Significant Social History No ALCOHOL: none Drugs: None Current Problem List Problem List Problems Medical Problems: (1) Pancreatic mass Status: Acute Current Medications Current Medications Current Medications Sodium Chloride (Iv Sodium Chloride 0.45%) 1,000 ml @ 80 mls/hr [id number] IV Last administered on 01/08/17 22:17; Start 01/08/17 at 21:03; Stop 01/09/17 at 09: 23; Status DC Ondansetron HCl (Zofran) 4 mg PRN Q6HRS PRN IV NAUSEA/VOMITING Last administered on 01/09/17 15:51; Start 01/08/17 at 21:15; Stop 01/10/17 at 17:41; Status DC Prochlorperazine Edisylate (Compazine) 10 mg PRN Q6HRS PRN IV NAUSEA/VOMITING; Start 01/08/17 at 21:15 Prochlorperazine (Compazine) 25 mg PRN Q12HR PRN TN NAUSEA/VOMITING; Start 01/08 at 21:15 Al Hydroxide/Mg Hydroxide (Mylanta Plus Xs) 30 ml PRN Q3HRS PRN PO HEARTBURN / GAS; Start 01/08/17 at 21:15 Calcium Carbonate/ Glycine (Tums) 500 mg PRN Q3HRS PRN PO UPSET STOMACH; Start 01/08/17 at 21:15; Stop 01/08/17 at 21:20; Status DC Oxycodone HCl (Roxicodone) 5 mg PRN Q3HRS PRN PO BREAKTHROUGH PAIN Last administered on 01/09/17 20:54; Start 01/08/17 at 21:15 Morphine Sulfate 1 mg PRN Q2HR PRN IV PAIN Last administered on 01/10/17 08:51 ; Start 01/08/17 at 21:15; Stop 01/11/17 at 08:13; Status DC Acetaminophen (Tylenol) 650 mg PRN Q6HRS PRN PO MILD PAIN / TEMP; Start at 21:15 Docusate Sodium (Colace) 100 mg BID PO Last administered on 01/11/17 21:38; Start 01/08/17 at 22:00 Magnesium Hydroxide (Milk Of Magnesia) 2,400 mg PRN Q12HR PRN PO CONSTIPATION; Start 01/08/17 at 21:15 Bisacodyl (Dulcolax Supp) 10 mg PRN DAILY PRN TN CONSTIPATION; Start 01/08/17 at 21:15 Enoxaparin Sodium (Lovenox 40mg Syringe) 40 mg Q24H SQ ; Start 01/08/17 at 22:00 ; Stop 01/08/17 at 22:00; Status DC Pantoprazole Sodium (Protonix Vial) 40 mg DAILYAC IVP Last administered on 01/12 07:54; Start 01/09/17 at 07:30 Enoxaparin Sodium 30 mg 30 mg Q24H SQ Last administered on 01/08/17 22:20; Start 01/08/17 at 22:00; Stop 01/09/17 at 09:24; Status DC Cefoxitin Sodium (Mefoxin 2gm Ivpb For Omni) 100 ml @ 200 mls/hr 1X PERIOP IV ; Start 01/09/17 at 08:45; Stop 01/10/17 at 11:49; Status DC Cetirizine HCl (Zyrtec) 10 mg DAILY PO Last administered on 01/09/17 10:27; Start 01/09/17 at 10:30 Guaifenesin (Mucinex) 600 mg PRN Q8HRS PRN PO CONGESTION; Start 01/09/17 at 09: 30 Levothyroxine Sodium (Synthroid) 50 mcg DAILYAC PO Last administered on 10:27; Start 01/09/17 at 10:30; Stop 01/11/17 at 08:19; Status DC Tramadol HCl (Ultram) 50 mg PRN Q6HRS PRN PO PAIN; Start 01/09/17 at 09:30 Non-Formulary Medication 2 puff QID INH ; Start 01/09/17 at 13:00; Status UNV Metoprolol Tartrate (Lopressor) 25 mg BID PO Last administered on 01/11/17 21: 38; Start 01/09/17 at 10:30 Fluticasone Propionate 2 spray 2 spray DAILY NS Last administered on 01/09/17 10:28; Start 01/09/17 at 10:30; Stop 01/09/17 at 13:10; Status DC Amino Acids/ Electrolytes/ Dextrose (Clinimix E 4.25%-5% Solution) 1,000 ml @ 80 mls/hr [id number] IV Last administered on 01/10/17 01:00; Start 01/09/17 at 10: 30; Stop 01/11/17 at 21:59; Status DC Enoxaparin Sodium (Lovenox 30mg Syringe) 30 mg Q24H SQ ; Start 01/09/17 at 10:00 ; Stop 01/09/17 at 10:00; Status DC Enoxaparin Sodium (Lovenox 30mg Syringe) 30 mg 1X ONCE SQ ; Start 01/09/17 at 10 :00; Stop 01/09/17 at 10:00; Status DC Enoxaparin Sodium (Lovenox 30mg Syringe) 30 mg Q24H SQ ; Start 01/10/17 at 21:00 ; Stop 01/11/17 at 09:42; Status DC Albuterol Sulfate (Ventolin Neb Soln) 2.5 mg RTQID NEB Last administered on 15:08; Start 01/09/17 at 12:00 Fluticasone Propionate (Flonase) 2 spray DAILY NS ; Start 01/09/17 at 13:10 Ondansetron HCl (Zofran) 4 mg PRN Q6HRS PRN IV NAUSEA/VOMITING; Start 01/10/17 at 07:30; Stop 01/10/17 at 18:00; Status DC Fentanyl Citrate (Fentanyl 2ml Vial) 25 mcg PRN Q5MIN PRN IV MILD PAIN; Start 01/10/17 at 07:30; Stop 01/10/17 at 18:00; Status DC Fentanyl Citrate 50 mcg 50 mcg PRN Q5MIN PRN IV MODERATE PAIN; Start 01/10/17 at 07:30; Stop 01/10/17 at 18:00; Status DC Lactated Ringer's (Iv Lactated Ringers) 1,000 ml @ 30 mls/hr Q24H IV ; Start at 07:28; Stop 01/10/17 at 19:27; Status DC Prochlorperazine Edisylate (Compazine) 5 mg PACU PRN PRN IV NAUSEA, MRX1; Start 01/10/17 at 07:30; Stop 01/10/17 at 18:00; Status DC Desflurane (Suprane) 90 ml STK-MED ONCE IH ; Start 01/10/17 at 09:03; Stop at 09:04; Status DC Fentanyl Citrate (Fentanyl 2ml Vial) 100 mcg STK-MED ONCE .ROUTE ; Start at 09:03; Stop 01/10/17 at 09:04; Status DC Rocuronium [place] 50 mg 50 mg STK-MED ONCE .ROUTE ; Start 01/10/17 at 09:03; Stop 01/10/17 at 09:04; Status DC Propofol (Diprivan) 20 ml @ As Directed STK-MED ONCE IV ; Start 01/10/17 at 09:04 ; Stop 01/10/17 at 09:05; Status DC Ondansetron HCl (Zofran) 4 mg STK-MED ONCE .ROUTE ; Start 01/10/17 at 09:04; Stop 01/10/17 at 09:05; Status DC Dexamethasone Sodium Phosphate (Decadron) 20 mg STK-MED ONCE .ROUTE ; Start 01/10 at 09:04; Stop 01/10/17 at 09:05; Status DC Lidocaine HCl (Lidocaine HCl 2% Abboject) 100 mg STK-MED ONCE .ROUTE ; Start 01/10/17 at 09:04; Stop 01/10/17 at 09:05; Status DC Phenylephrine HCl (Rodrigue-Synephrine Inj) 10 mg STK-MED ONCE .ROUTE ; Start at 09:27; Stop 01/10/17 at 09:28; Status DC Fentanyl Citrate (Fentanyl 5ml Vial) 250 mcg STK-MED ONCE .ROUTE ; Start at 10:17; Stop 01/10/17 at 10:18; Status DC Rocuronium [place] 50 mg 50 mg STK-MED ONCE .ROUTE ; Start 01/10/17 at 10:26; Stop 01/10/17 at 10:27; Status DC Albumin Human (Plasmanate) 500 ml @ As Directed STK-MED ONCE IV ; Start at 11:32; Stop 01/10/17 at 11:33; Status DC Lorazepam (Ativan) 2 mg STK-MED ONCE .ROUTE ; Start 01/10/17 at 11:38; Stop at 11:39; Status DC Cellulose 1 each 1 each STK-MED ONCE .ROUTE Last administered on 01/10/17 10:23 ; Start 01/10/17 at 12:09; Stop 01/10/17 at 12:10; Status DC Albumin Human (Plasmanate) 500 ml @ As Directed STK-MED ONCE IV ; Start at 12:14; Stop 01/10/17 at 12:15; Status DC Phenylephrine HCl (Rodrigue-Synephrine Inj) 10 mg STK-MED ONCE .ROUTE ; Start at 12:14; Stop 01/10/17 at 12:15; Status DC Cellulose 1 each STK-MED ONCE .ROUTE Last administered on 01/10/17 10:23; Start 01/10/17 at 12:46; Stop 01/10/17 at 12:47; Status DC Lorazepam (Ativan) 2 mg STK-MED ONCE .ROUTE ; Start 01/10/17 at 12:47; Stop at 12:48; Status DC Phenylephrine HCl (Rodrigue-Synephrine Inj) 10 mg STK-MED ONCE .ROUTE ; Start at 12:55; Stop 01/10/17 at 12:56; Status DC Vasopressin (Vasostrict) 20 unit STK-MED ONCE .ROUTE ; Start 01/10/17 at 12:58; Stop 01/10/17 at 12:59; Status DC Norepinephrine Bitartrate (Levophed Vial) 4 mg STK-MED ONCE IV ; Start 01/10/17 at 13:00; Stop 01/10/17 at 13:01; Status DC Norepinephrine Bitartrate (Levophed Vial) 4 mg STK-MED ONCE IV ; Start 01/10/17 at 13:00; Stop 01/10/17 at 13:01; Status DC Rocuronium [place] (Zemuron) 50 mg STK-MED ONCE .ROUTE ; Start 01/10/17 at 13:30 ; Stop 01/10/17 at 13:31; Status DC Famotidine (Pepcid) 20 mg QHS IVP ; Start 01/10/17 at 21:00; Stop 01/11/17 at 08: 15; Status DC Sodium Chloride 3 ml 3 ml QSHIFT PRN IV AFTER MEDS AND BLOOD DRAWS; Start at 13:45; Stop 01/12/17 at 14:37; Status DC Lactated Ringer's (Iv Lactated Ringers) 1,000 ml @ 100 mls/hr Q10H IV Last administered on 01/12/17 05:17; Start 01/10/17 at 13:43; Stop 01/12/17 at 13:21 ; Status DC Morphine Sulfate 1 mg PRN Q1HR PRN IV PAIN Last administered on 01/10/17 17:41 ; Start 01/10/17 at 13:45 Ondansetron HCl (Zofran) 4 mg PRN Q6HRS PRN IV NAUESA, 1ST CHOICE; Start at 13:45 Cellulose 2 each STK-MED ONCE TP Last administered on 01/10/17 10:23; Start 01/10/17 at 10:23; Stop 01/10/17 at 14:25; Status DC Lorazepam (Ativan) 2 mg STK-MED ONCE .ROUTE ; Start 01/10/17 at 20:59; Stop at 21:00; Status DC Rocuronium [place] 50 mg 50 mg STK-MED ONCE .ROUTE ; Start 01/10/17 at 21:30; Stop 01/10/17 at 21:31; Status DC Cefoxitin Sodium (Mefoxin 2gm Ivpb For Omni) 100 ml @ As Directed STK-MED ONCE IV ; Start 01/10/17 at 21:45; Stop 01/10/17 at 21:46; Status DC Cellulose 1 each STK-MED ONCE .ROUTE Last administered on 01/10/17 21:47; Start 01/10/17 at 21:48; Stop 01/10/17 at 21:49; Status DC Cellulose 2 each STK-MED ONCE TP Last administered on 01/10/17 21:47; Start 01/10/17 at 21:47; Stop 01/10/17 at 22:14; Status DC Sodium Chloride 3 ml 3 ml QSHIFT PRN IV AFTER MEDS AND BLOOD DRAWS; Start at 22:30 Fentanyl Citrate 30 ml @ 0 mls/hr CONT PRN IV PROTOCOL Last administered on 03:21; Start 01/10/17 at 22:30 Propofol (Diprivan) 100 ml @ 0 mls/hr CONT PRN IV PER PROTOCOL Last administered on 01/12/17 14:16; Start 01/10/17 at 22:30 Chlorhexidine Gluconate 15 ml 15 ml BID MM Last administered on 01/12/17 09:37 ; Start 01/11/17 at 09:00 Sodium Chloride 1,000 ml @ 1,000 mls/hr 1X ONCE IV Last administered on 02:30; Start 01/11/17 at 02:30; Stop 01/11/17 at 03:29; Status DC Levothyroxine Sodium 25 mcg/ Sodium Chloride 5 ml @ 100 mls/hr DAILY IVP Last administered on 01/12/17 09:37; Start 01/11/17 at 09:00 Sodium Chloride (Iv Sodium Chloride 0.9% 500ml Bag) 500 ml @ 500 mls/hr 1X ONCE IV Last administered on 01/11/17 09:45; Start 01/11/17 at 09:45; Stop at 10:44; Status DC Heparin Sodium (Porcine) 5,000 unit Q8HRS SQ ; Start 01/11/17 at 14:00; Stop 01/11 at 16:45; Status DC Info 1 each 1 each PRN DAILY PRN MC SEE COMMENTS Last administered on 13:41; Start 01/11/17 at 10:15 Norepinephrine Bitartrate 8 mg/ Sodium Chloride 258 ml @ 0 mls/hr CONT PRN IV SEE I/O RECORD Last administered on 01/11/17 12:58; Start 01/11/17 at 11:15 Lactated Ringer's 500 ml @ 500 mls/hr PRN Q2HRS PRN IV HYPOTENTION; Start 01/11 at 13:15 Sodium Chloride 500 ml @ 500 mls/hr PRN Q2HR PRN IV hypotention; Start at 13:15 Sodium Acetate/ Potassium Acetate/ Potassium Phosphate/ Magnesium Sulfate/ Calcium Gluconate/ Chromium/Copper/ Manganese/Seleni/ Zn/Total Parenteral Nutrition/Amino Acids/Dextrose/ Fat Emulsion Intravenous (Potassium Phosphate/ Calcium Gluconate/ Multitrace-5 Conc/ Tpn - Tpn Flu... 1,512 ml @ 63 mls/hr TPN CONT IV Last administered on 01/11/17 21:39; Start 01/11/17 at 22:00; Stop 01/12/17 at 21:59 Info 1 each PRN DAILY PRN MC SEE COMMENTS; Start 01/11/17 at 13:45; Status UNV Cefoxitin Sodium 4 gm 4 gm STK-MED ONCE IV ; Start 01/10/17 at 12:00; Stop at 08:16; Status DC Sodium Chloride (Iv Sodium Chloride 0.9% 1000ml Bag) 1,000 ml @ 100 mls/hr Q10H IV Last administered on 01/12/17 14:15; Start 01/12/17 at 13:15 Insulin Aspart (Novolog) 0-7 UNITS TIDWMEALS SQ ; Start 01/12/17 at 17:00 Dextrose 12.5 gm 12.5 gm PRN Q15MIN PRN IV SEE COMMENTS; Start 01/12/17 at 13: 30 Magnesium Sulfate/ Dextrose 50 ml @ 25 mls/hr 1X ONCE IV Last administered on 01/12/17 14:16; Start 01/12/17 at 14:00; Stop 01/12/17 at 15:59; Status DC Potassium Phosphate 10 mmol/ Sodium Chloride 103.3333 ml @ 51.667 m... 1X ONCE IV Last administered on 01/12/17 14:16; Start 01/12/17 at 14:00; Stop 07/21 at 15:59; Status DC Sodium Acetate/ Potassium Acetate/ Potassium Phosphate/ Magnesium Sulfate/ Calcium Gluconate/ Chromium/Copper/ Manganese/Seleni/ Zn/Total Parenteral Nutrition/Amino Acids/Dextrose/ Fat Emulsion Intravenous (Potassium Phosphate/ Calcium Gluconate/ Multitrace-5 Conc/ Tpn - Tpn Flu... 1,512 ml @ 63 mls/hr TPN CONT IV ; Start 01/12/17 at 22:00; Stop 01/13/17 at 21:59 Active Scripts Active Reported Pred Forte (Prednisolone Acetate) 1 Ml Drops.susp 1 Ml OU BID PRN Visine Allergy Relief Drop (Tetrahydrozoline Hcl/Zn Sulf) 15 Ml Drops 1 Drop OU PRN Thera Tears (Carboxymethylcellulose Sodium) 15 Ml Drops 1 Drop OU PRN Jaime-128 (Sodium Chloride) 15 Ml Drops 1 Drop OU PRN Tramadol Hcl 100 Mg Tbmp.24hr 100 Mg PO Q6H PRN Tramadol Hcl 50 Mg Tablet 50 Mg PO Q6H PRN Zyrtec (Cetirizine Hcl) 10 Mg Tablet 10 Mg PO DAILY Nasacort (Triamcinolone Acetonide) 10.8 Ml Farina 2 Farina NS DAILY Proair Hfa Inhaler (Albuterol Sulfate) 8.5 Gm Hfa.aer.ad 2 Puff INH QID Mucinex (Guaifenesin) 600 Mg Tablet.er 600 Mg PO Q8HRS PRN Levothyroxine Sodium 50 Mcg Tablet 50 Mcg PO DAILYAC Dyazide 37.5-25 Capsule (Triamterene/Hydrochlorothiazid) 1 Each Capsule 1 Cap PO DAILY Bystolic (Nebivolol) 5 Mg Tablet 5 Mg PO DAILY Allergies Allergies: Coded Allergies: Bfjacim-Cyt-Ttn Reductase Inhibitor (Verified Allergy, Intermediate, ) albuterol (Verified Allergy, Intermediate, 01/08/17) aspirin (Verified Allergy, Intermediate, 01/08/17) diltiazem (Verified Allergy, Intermediate, 01/08/17) ether (Verified Allergy, Intermediate, 01/08/17) ezetimibe (Verified Allergy, Intermediate, 01/08/17) fluticasone (Verified Allergy, Intermediate, 01/08/17) furosemide (Verified Allergy, Intermediate, 01/08/17) ipratropium (Verified Allergy, Intermediate, 01/08/17) lidocaine (Verified Allergy, Intermediate, 01/08/17) naproxen (Verified Allergy, Intermediate, 01/08/17) raloxifene (Verified Allergy, Intermediate, 01/08/17) salmeterol (Verified Allergy, Intermediate, 01/08/17) tiotropium (Verified Allergy, Intermediate, 01/08/17) tramadol (Verified Allergy, Intermediate, 01/08/17) trandolapril (Verified Allergy, Intermediate, 01/08/17) verapamil (Verified Allergy, Intermediate, 01/08/17) Sulfa (Sulfonamide Antibiotics) (Verified Allergy, Unknown, 01/08/17) alendronate sodium (Verified Allergy, Unknown, 01/08/17) calcium (Verified Allergy, Unknown, 01/08/17) celecoxib (Verified Allergy, Unknown, 01/08/17) estradiol (Verified Allergy, Unknown, 01/08/17) estrogens, conjugated (Verified Allergy, Unknown, 01/08/17) niacin (Verified Allergy, Unknown, 01/08/17) ROS Review of System UNABLE TO OBTAIN Physical Exam General: No acute distress HEENT: Atraumatic, PERRLA Heart: Regular rate, Normal S1 Abdomen: Other (HYPOACTIVE) Extremities: No clubbing Skin: No significant lesion Neuro: Other (SEDATED) Psych/Mental Status: Other (SEDATED) MUSCULOSKELETAL: No deformity, Other (DIFFUSE ATROPHY) Vitals VITALS Vital Signs Date Time Temp Pulse Resp B/P Pulse Ox O2 Delivery O2 Flow Rate FiO2 01/12/17 15:08 100 Ventilator 01/12/17 14:00 120 12 118/61 01/12/17 12:00 98.4 98.4 Labs Labs Laboratory Tests Test 01/10/17 19:25 01/10/17 23:17 01/11/17 05:00 01/11/17 05:55 White Blood Count 5.5x10^3/uL (4.0-11.0) 16.3x10^3/uL (4.0-11.0) Red Blood Count 2.82x10^6/uL (3.50-5.40) 2.70x10^6/uL (3.50-5.40) Hemoglobin 8.0g/dL (12.0-15.5) 7.5g/dL (12.0-15.5) Hematocrit 23.6% (36.0-47.0) 22.6% (36.0-47.0) Mean Corpuscular Volume 84fL (79-100) 84fL (79-100) Mean Corpuscular Hemoglobin 28pg (25-35) 28pg (25-35) Mean Corpuscular Hemoglobin Concent 34g/dL (31-37) 33g/dL (31-37) Red Cell Distribution Width 14.4% (11.5-14.5) 14.7% (11.5-14.5) Platelet Count 210x10^3/uL (140-400) 201x10^3/uL (140-400) Neutrophils (%) (Auto) 89% (31-73) 89% (31-73) Lymphocytes (%) (Auto) 4% (24-48) 5% (24-48) Monocytes (%) (Auto) 7% (0-9) 6% (0-9) Eosinophils (%) (Auto) 0% (0-3) 0% (0-3) Basophils (%) (Auto) 0% (0-3) 0% (0-3) Neutrophils # (Auto) 4.9x10^3uL (1.8-7.7) 14.4x10^3uL (1.8-7.7) Lymphocytes # (Auto) 0.2x10^3/uL (1.0-4.8) 0.8x10^3/uL (1.0-4.8) Monocytes # (Auto) 0.4x10^3/uL (0.0-1.1) 1.0x10^3/uL (0.0-1.1) Eosinophils # (Auto) 0.0x10^3/uL (0.0-0.7) 0.0x10^3/uL (0.0-0.7) Basophils # (Auto) 0.0x10^3/uL (0.0-0.2) 0.0x10^3/uL (0.0-0.2) Segmented Neutrophils % 34% (35-66) Band Neutrophils % 55% (0-9) Lymphocytes % 7% (24-48) Monocytes % 4% (0-10) Platelet Estimate Adequate (ADEQUATE) Large Platelets Occ Giant Platelets Occ Prothrombin Time 14.9SEC (11.7-14.0) Prothromb Time International Ratio 1.2 (0.8-1.1) Activated Partial Thromboplast Time 31SEC (24-38) O2 Saturation 98% (92-99) Arterial Blood pH 7.46 (7.35-7.45) Arterial Blood pCO2 at Patient Temp 28mmHg (35-46) Arterial Blood pO2 at Patient Temp 167mmHg (65-108) Arterial Blood HCO3 20mmol/L (21-28) Arterial Blood Base Excess -4mmol/L (-3-3) Oxyhemoglobin 98.2% Methemoglobin 0.2% (0.0-1.9) Carbon Monoxide, Quantitative 0.0% (0.0-1.9) FiO2 40 Phosphorus Level 4.0mg/dL (2.6-4.7) Magnesium Level 1.6mg/dL (1.8-2.4) Sodium Level 140mmol/L (136-145) Potassium Level 4.4mmol/L (3.5-5.1) Chloride Level 109mmol/L (98-107) Carbon Dioxide Level 19mmol/L (21-32) Anion Gap 12 (6-14) Blood Urea Nitrogen 23mg/dL (7-20) Creatinine 1.4mg/dL (0.6-1.0) Estimated GFR (Cockcroft-Gault) 36.3 BUN/Creatinine Ratio 16 (6-20) Glucose Level 183mg/dL (70-99) Calcium Level 7.0mg/dL (8.5-10.1) Total Bilirubin 1.0mg/dL (0.2-1.0) Aspartate Amino Transf (AST/SGOT) 99U/L (15-37) Alanine Aminotransferase (ALT/SGPT) 66U/L (14-59) Alkaline Phosphatase 51U/L (46-116) Total Protein 4.6g/dL (6.4-8.2) Albumin 2.1g/dL (3.4-5.0) Albumin/Globulin Ratio 0.8 (1.0-1.7) Test 01/11/17 06:00 01/11/17 12:30 01/12/17 01:00 01/12/17 05:30 O2 Saturation 98% (92-99) Arterial Blood pH 7.46 (7.35-7.45) Arterial Blood pCO2 at Patient Temp 24mmHg (35-46) Arterial Blood pO2 at Patient Temp 130mmHg (65-108) Arterial Blood HCO3 17mmol/L (21-28) Arterial Blood Base Excess -6mmol/L (-3-3) FiO2 30 White Blood Count 19.5x10^3/uL (4.0-11.0) 24.6x10^3/uL (4.0-11.0) Red Blood Count 2.08x10^6/uL (3.50-5.40) 3.49x10^6/uL (3.50-5.40) Hemoglobin 5.8g/dL (12.0-15.5) 10.1g/dL (12.0-15.5) Hematocrit 17.8% (36.0-47.0) 29.2% (36.0-47.0) Mean Corpuscular Volume 85fL (79-100) 84fL (79-100) Mean Corpuscular Hemoglobin 28pg (25-35) 29pg (25-35) Mean Corpuscular Hemoglobin Concent 33g/dL (31-37) 34g/dL (31-37) Red Cell Distribution Width 15.4% (11.5-14.5) 15.2% (11.5-14.5) Platelet Count 158x10^3/uL (140-400) 147x10^3/uL (140-400) Neutrophils (%) (Auto) 89% (31-73) 90% (31-73) Lymphocytes (%) (Auto) 5% (24-48) 6% (24-48) Monocytes (%) (Auto) 6% (0-9) 4% (0-9) Eosinophils (%) (Auto) 0% (0-3) 0% (0-3) Basophils (%) (Auto) 0% (0-3) 0% (0-3) Neutrophils # (Auto) 17.3x10^3uL (1.8-7.7) 22.1x10^3uL (1.8-7.7) Lymphocytes # (Auto) 0.9x10^3/uL (1.0-4.8) 1.6x10^3/uL (1.0-4.8) Monocytes # (Auto) 1.2x10^3/uL (0.0-1.1) 0.9x10^3/uL (0.0-1.1) Eosinophils # (Auto) 0.0x10^3/uL (0.0-0.7) 0.0x10^3/uL (0.0-0.7) Basophils # (Auto) 0.0x10^3/uL (0.0-0.2) 0.0x10^3/uL (0.0-0.2) Sodium Level 142mmol/L (136-145) 141mmol/L (136-145) Potassium Level 3.9mmol/L (3.5-5.1) 3.7mmol/L (3.5-5.1) Chloride Level 111mmol/L (98-107) 109mmol/L (98-107) Carbon Dioxide Level 18mmol/L (21-32) 22mmol/L (21-32) Anion Gap 13 (6-14) 10 (6-14) Blood Urea Nitrogen 27mg/dL (7-20) 36mg/dL (7-20) Creatinine 1.6mg/dL (0.6-1.0) 1.8mg/dL (0.6-1.0) Estimated GFR (Cockcroft-Gault) 31.1 27.1 BUN/Creatinine Ratio 17 (6-20) 20 (6-20) Glucose Level 142mg/dL (70-99) 267mg/dL (70-99) Calcium Level 6.6mg/dL (8.5-10.1) 7.3mg/dL (8.5-10.1) Total Bilirubin 1.0mg/dL (0.2-1.0) 0.6mg/dL (0.2-1.0) Aspartate Amino Transf (AST/SGOT) 1208U/L (15-37) 2719U/L (15-37) Alanine Aminotransferase (ALT/SGPT) 749U/L (14-59) 2277U/L (14-59) Alkaline Phosphatase 42U/L (46-116) 64U/L (46-116) Total Protein 3.6g/dL (6.4-8.2) 4.0g/dL (6.4-8.2) Albumin 1.6g/dL (3.4-5.0) 1.6g/dL (3.4-5.0) Albumin/Globulin Ratio 0.8 (1.0-1.7) 0.7 (1.0-1.7) Nasal Screen MRSA (PCR) Negative (Negative) Segmented Neutrophils % 73% (35-66) Band Neutrophils % 21% (0-9) Lymphocytes % 3% (24-48) Monocytes % 3% (0-10) Platelet Estimate Adequate (ADEQUATE) Phosphorus Level 2.5mg/dL (2.6-4.7) Magnesium Level 1.5mg/dL (1.8-2.4) Triglycerides Level 140mg/dL (0-150) Test 01/12/17 07:20 01/12/17 14:32 O2 Saturation 98% (92-99) Arterial Blood pH 7.43 (7.35-7.45) Arterial Blood pCO2 at Patient Temp 31mmHg (35-46) Arterial Blood pO2 at Patient Temp 118mmHg (65-108) Arterial Blood HCO3 20mmol/L (21-28) Arterial Blood Base Excess -4mmol/L (-3-3) FiO2 30 Platelet Count 127x10^3/uL (140-400) Prothrombin Time 17.6SEC (11.7-14.0) Prothromb Time International Ratio 1.5 (0.8-1.1) Activated Partial Thromboplast Time 30SEC (24-38) Fibrinogen 596mg/dL (200-440) D-Dimer (Zoraida) 2.95ug/mlFEU (0.00-0.50) Laboratory Tests Test 01/12/17 01:00 01/12/17 05:30 01/12/17 07:20 01/12/17 14:32 Nasal Screen MRSA (PCR) Negative (Negative) White Blood Count 24.6x10^3/uL (4.0-11.0) Red Blood Count 3.49x10^6/uL (3.50-5.40) Hemoglobin 10.1g/dL (12.0-15.5) Hematocrit 29.2% (36.0-47.0) Mean Corpuscular Volume 84fL (79-100) Mean Corpuscular Hemoglobin 29pg (25-35) Mean Corpuscular Hemoglobin Concent 34g/dL (31-37) Red Cell Distribution Width 15.2% (11.5-14.5) Platelet Count 147x10^3/uL (140-400) 127x10^3/uL (140-400) Neutrophils (%) (Auto) 90% (31-73) Lymphocytes (%) (Auto) 6% (24-48) Monocytes (%) (Auto) 4% (0-9) Eosinophils (%) (Auto) 0% (0-3) Basophils (%) (Auto) 0% (0-3) Neutrophils # (Auto) 22.1x10^3uL (1.8-7.7) Lymphocytes # (Auto) 1.6x10^3/uL (1.0-4.8) Monocytes # (Auto) 0.9x10^3/uL (0.0-1.1) Eosinophils # (Auto) 0.0x10^3/uL (0.0-0.7) Basophils # (Auto) 0.0x10^3/uL (0.0-0.2) Segmented Neutrophils % 73% (35-66) Band Neutrophils % 21% (0-9) Lymphocytes % 3% (24-48) Monocytes % 3% (0-10) Platelet Estimate Adequate (ADEQUATE) Sodium Level 141mmol/L (136-145) Potassium Level 3.7mmol/L (3.5-5.1) Chloride Level 109mmol/L (98-107) Carbon Dioxide Level 22mmol/L (21-32) Anion Gap 10 (6-14) Blood Urea Nitrogen 36mg/dL (7-20) Creatinine 1.8mg/dL (0.6-1.0) Estimated GFR (Cockcroft-Gault) 27.1 BUN/Creatinine Ratio 20 (6-20) Glucose Level 267mg/dL (70-99) Calcium Level 7.3mg/dL (8.5-10.1) Phosphorus Level 2.5mg/dL (2.6-4.7) Magnesium Level 1.5mg/dL (1.8-2.4) Total Bilirubin 0.6mg/dL (0.2-1.0) Aspartate Amino Transf (AST/SGOT) 2719U/L (15-37) Alanine Aminotransferase (ALT/SGPT) 2277U/L (14-59) Alkaline Phosphatase 64U/L (46-116) Total Protein 4.0g/dL (6.4-8.2) Albumin 1.6g/dL (3.4-5.0) Albumin/Globulin Ratio 0.7 (1.0-1.7) Triglycerides Level 140mg/dL (0-150) O2 Saturation 98% (92-99) Arterial Blood pH 7.43 (7.35-7.45) Arterial Blood pCO2 at Patient Temp 31mmHg (35-46) Arterial Blood pO2 at Patient Temp 118mmHg (65-108) Arterial Blood HCO3 20mmol/L (21-28) Arterial Blood Base Excess -4mmol/L (-3-3) FiO2 30 Prothrombin Time 17.6SEC (11.7-14.0) Prothromb Time International Ratio 1.5 (0.8-1.1) Activated Partial Thromboplast Time 30SEC (24-38) Fibrinogen 596mg/dL (200-440) D-Dimer (Zoraida) 2.95ug/mlFEU (0.00-0.50) Assessment/Plan Assessment/Plan IMP HYPOTENSION MET PANCREATIC CANCER FREDIS WITH DECREASING UO S/P EXP LAP WITH LEFT NEPHRECTOMY - PLUS - SEE OP NOTE ANEMIA RESP FAILURE LEUCOCYTOSIS PLAN TPN VENT SUPPORT PRESSORS NEEDED ANTIBIOTICS PRBC NEEDED ARANESP ISOTONIC SALINE WILL FOLLOW LEIA ISIDRO MD Jan 12, 2017 16:20
[2017-01-12] MEDS ORDERED: INSULIN ASPART 300 UNITS/3 ML INSULN.PEN SQ SCH (17:00)
[2017-01-12] MEDS ORDERED: AMINO ACIDS IV SCH ×9 (22:00)
[2017-01-12] MEDS ORDERED: TOTAL PARENTERAL NUTRITION IV SCH ×9 (22:00)
[2017-01-12] MEDS ORDERED: [UNRECOGNIZED DRUG - OTHER] IV SCH ×9 (22:00)
[2017-01-12] MEDS ORDERED: DEXTROSE 70% IV SCH ×9 (22:00)
[2017-01-12] MEDS: DARBEPOETIN ALFA 60 MCG/0.3 ML DISP.SYRIN. SQ SCH (22:09)
[2017-01-13] VITALS (24 sets, daily range): BP systolic 86–160; BP diastolic 42–68
[2017-01-13] MEDS: INSULIN ASPART 300 UNITS/3 ML INSULN.PEN SQ SCH ×4 (00:35→18:04)
[2017-01-13] MEDS: IV NORMAL SALINE 1000ML BAG 1,000 ML IV SCH ×3 (01:22→18:39)
[2017-01-13] MEDS: FENTANYL STANDARD PCA 30 ML IV PRN (03:49)
[2017-01-13 07:26] LABS: CALCIUM 7.3 mg/dL (8.5-10.1); CREATININE 1.5 mg/dL (0.6-1.0); GFR 33.5; MAGNESIUM 2.3 mg/dL (1.8-2.4); PHOSPHORUS 2.3 mg/dL (2.6-4.7); POTASSIUM 4.3 mmol/L (3.5-5.1)
[2017-01-13] MEDS: ALBUTEROL SULFATE 2.5 MG/3 ML NEBU. NEB SCH ×4 (07:33→19:19)
[2017-01-13 07:37] LABS: BASO % 0 % (0-3); EOS % 0 % (0-3); HEMATOCRIT 27.1 % (36.0-47.0); LYMPH # 1.3 x10^3/uL (1.0-4.8); LYMPH % 4 % (24-48); MEAN CORPUSCULAR HEMOGLOBIN 29 pg (25-35); MEAN CORPUSCULAR HGB CONC 33 g/dL (31-37); MEAN CORPUSCULAR VOLUME 87 fL (79-100); MONO % 5 % (0-9); NEUT % 90 % (31-73); PLATELET COUNT 109 x10^3/uL (140-400); RED BLOOD COUNT 3.13 x10^6/uL (3.50-5.40); RED CELL DISTRIBUTION WIDTH 15.4 % (11.5-14.5); WHITE BLOOD COUNT 29.6 x10^3/uL (4.0-11.0)
[2017-01-13 07:52] LABS: FIO2 ABG 30
[2017-01-13 07:56] LABS: HCO3 ABG 21 mmol/L (21-28); PCO2 ABG 32 mmHg (35-46); PO2 ABG 128 mmHg (65-108); SAT O2 ABG 98 % (92-99)
[2017-01-13 07:57] LABS: PH ABG 7.43 (7.35-7.45)
[2017-01-13] MEDS: CHLORHEXIDINE 0.12% 15 ML MOUTHWASH. MM SCH ×2 (08:41→22:35)
[2017-01-13] MEDS: LEVOTHYROXINE SODIUM 25 MCG in IV NORMAL SALINE 50ML 5 ML IVP SCH (08:41)
[2017-01-13] MEDS: PANTOPRAZOLE IV PUSH 40 MG VIAL. IVP SCH (08:41)
[2017-01-13] MEDS: DOCUSATE SODIUM 100 MG CAPSULE. PO SCH ×2 (09:00→21:00)
[2017-01-13] MEDS: FLUTICASONE 50MCG/NASAL SPRAY 16GM BOTTLE. NS SCH (09:00)
[2017-01-13] MEDS: METOPROLOL TART IMMED RELEASE 25 MG TABLET. PO SCH (09:00)
[2017-01-13] MEDS: CETIRIZINE HCL 10 MG TABLET. PO SCH (09:00)
--- NOTE | 2017-01-13 09:03 | PDOC ---
SURGICAL PROGRESS NOTE Subjective Pt intubated and sedated, Vital Signs Vital Signs Date Time Temp Pulse Resp B/P Pulse Ox O2 Delivery O2 Flow Rate FiO2 01/13/17 07:33 99 Ventilator 01/13/17 07:00 102 16 112/55 01/13/17 04:00 98.7 98.7 I&O Intake and Output 01/13/17 06:59 Intake Total 3128.3133 ml Output Total 2095 ml Balance 1033.3133 ml Intake Oral 0 ml IV Total 3128.3133 ml Output Urine Total 670 ml Stool Total 250 ml Gastric Drainage Total 400 ml Drainage Total 775 ml PATIENT HAS A RDZ: Yes (accurate i and os) General: No acute distress Abdomen: Soft, No tenderness, Other (JANICE serosang, ostomy fxn) Labs Laboratory Tests Test 01/11/17 12:30 01/12/17 01:00 01/12/17 05:30 01/12/17 07:20 White Blood Count 19.5x10^3/uL (4.0-11.0) 24.6x10^3/uL (4.0-11.0) Red Blood Count 2.08x10^6/uL (3.50-5.40) 3.49x10^6/uL (3.50-5.40) Hemoglobin 5.8g/dL (12.0-15.5) 10.1g/dL (12.0-15.5) Hematocrit 17.8% (36.0-47.0) 29.2% (36.0-47.0) Mean Corpuscular Volume 85fL (79-100) 84fL (79-100) Mean Corpuscular Hemoglobin 28pg (25-35) 29pg (25-35) Mean Corpuscular Hemoglobin Concent 33g/dL (31-37) 34g/dL (31-37) Red Cell Distribution Width 15.4% (11.5-14.5) 15.2% (11.5-14.5) Platelet Count 158x10^3/uL (140-400) 147x10^3/uL (140-400) Neutrophils (%) (Auto) 89% (31-73) 90% (31-73) Lymphocytes (%) (Auto) 5% (24-48) 6% (24-48) Monocytes (%) (Auto) 6% (0-9) 4% (0-9) Eosinophils (%) (Auto) 0% (0-3) 0% (0-3) Basophils (%) (Auto) 0% (0-3) 0% (0-3) Neutrophils # (Auto) 17.3x10^3uL (1.8-7.7) 22.1x10^3uL (1.8-7.7) Lymphocytes # (Auto) 0.9x10^3/uL (1.0-4.8) 1.6x10^3/uL (1.0-4.8) Monocytes # (Auto) 1.2x10^3/uL (0.0-1.1) 0.9x10^3/uL (0.0-1.1) Eosinophils # (Auto) 0.0x10^3/uL (0.0-0.7) 0.0x10^3/uL (0.0-0.7) Basophils # (Auto) 0.0x10^3/uL (0.0-0.2) 0.0x10^3/uL (0.0-0.2) Sodium Level 142mmol/L (136-145) 141mmol/L (136-145) Potassium Level 3.9mmol/L (3.5-5.1) 3.7mmol/L (3.5-5.1) Chloride Level 111mmol/L (98-107) 109mmol/L (98-107) Carbon Dioxide Level 18mmol/L (21-32) 22mmol/L (21-32) Anion Gap 13 (6-14) 10 (6-14) Blood Urea Nitrogen 27mg/dL (7-20) 36mg/dL (7-20) Creatinine 1.6mg/dL (0.6-1.0) 1.8mg/dL (0.6-1.0) Estimated GFR (Cockcroft-Gault) 31.1 27.1 BUN/Creatinine Ratio 17 (6-20) 20 (6-20) Glucose Level 142mg/dL (70-99) 267mg/dL (70-99) Calcium Level 6.6mg/dL (8.5-10.1) 7.3mg/dL (8.5-10.1) Total Bilirubin 1.0mg/dL (0.2-1.0) 0.6mg/dL (0.2-1.0) Aspartate Amino Transf (AST/SGOT) 1208U/L (15-37) 2719U/L (15-37) Alanine Aminotransferase (ALT/SGPT) 749U/L (14-59) 2277U/L (14-59) Alkaline Phosphatase 42U/L (46-116) 64U/L (46-116) Total Protein 3.6g/dL (6.4-8.2) 4.0g/dL (6.4-8.2) Albumin 1.6g/dL (3.4-5.0) 1.6g/dL (3.4-5.0) Albumin/Globulin Ratio 0.8 (1.0-1.7) 0.7 (1.0-1.7) Nasal Screen MRSA (PCR) Negative (Negative) Segmented Neutrophils % 73% (35-66) Band Neutrophils % 21% (0-9) Lymphocytes % 3% (24-48) Monocytes % 3% (0-10) Platelet Estimate Adequate (ADEQUATE) Phosphorus Level 2.5mg/dL (2.6-4.7) Magnesium Level 1.5mg/dL (1.8-2.4) Triglycerides Level 140mg/dL (0-150) O2 Saturation 98% (92-99) Arterial Blood pH 7.43 (7.35-7.45) Arterial Blood pCO2 at Patient Temp 31mmHg (35-46) Arterial Blood pO2 at Patient Temp 118mmHg (65-108) Arterial Blood HCO3 20mmol/L (21-28) Arterial Blood Base Excess -4mmol/L (-3-3) FiO2 30 Test 01/12/17 14:32 01/12/17 17:04 01/13/17 00:23 01/13/17 06:30 Platelet Count 127x10^3/uL (140-400) 109x10^3/uL (140-400) Prothrombin Time 17.6SEC (11.7-14.0) Prothromb Time International Ratio 1.5 (0.8-1.1) Activated Partial Thromboplast Time 30SEC (24-38) Fibrinogen 596mg/dL (200-440) D-Dimer (Zoraida) 2.95ug/mlFEU (0.00-0.50) Glucose (Fingerstick) 275mg/dL (70-99) 288mg/dL (70-99) White Blood Count 29.6x10^3/uL (4.0-11.0) Red Blood Count 3.13x10^6/uL (3.50-5.40) Hemoglobin 9.0g/dL (12.0-15.5) Hematocrit 27.1% (36.0-47.0) Mean Corpuscular Volume 87fL (79-100) Mean Corpuscular Hemoglobin 29pg (25-35) Mean Corpuscular Hemoglobin Concent 33g/dL (31-37) Red Cell Distribution Width 15.4% (11.5-14.5) Neutrophils (%) (Auto) 90% (31-73) Lymphocytes (%) (Auto) 4% (24-48) Monocytes (%) (Auto) 5% (0-9) Eosinophils (%) (Auto) 0% (0-3) Basophils (%) (Auto) 0% (0-3) Neutrophils # (Auto) 26.6x10^3uL (1.8-7.7) Lymphocytes # (Auto) 1.3x10^3/uL (1.0-4.8) Monocytes # (Auto) 1.6x10^3/uL (0.0-1.1) Eosinophils # (Auto) 0.0x10^3/uL (0.0-0.7) Basophils # (Auto) 0.0x10^3/uL (0.0-0.2) Sodium Level 140mmol/L (136-145) Potassium Level 4.3mmol/L (3.5-5.1) Chloride Level 108mmol/L (98-107) Carbon Dioxide Level 23mmol/L (21-32) Anion Gap 9 (6-14) Blood Urea Nitrogen 40mg/dL (7-20) Creatinine 1.5mg/dL (0.6-1.0) Estimated GFR (Cockcroft-Gault) 33.5 Glucose Level 332mg/dL (70-99) Calcium Level 7.3mg/dL (8.5-10.1) Phosphorus Level 2.3mg/dL (2.6-4.7) Magnesium Level 2.3mg/dL (1.8-2.4) Test 01/13/17 06:35 01/13/17 07:35 Glucose (Fingerstick) 311mg/dL (70-99) O2 Saturation 98% (92-99) Arterial Blood pH 7.43 (7.35-7.45) Arterial Blood pCO2 at Patient Temp 32mmHg (35-46) Arterial Blood pO2 at Patient Temp 128mmHg (65-108) Arterial Blood HCO3 21mmol/L (21-28) Arterial Blood Base Excess -3mmol/L (-3-3) FiO2 30 Laboratory Tests Test 01/12/17 14:32 01/12/17 17:04 01/13/17 00:23 01/13/17 06:30 Platelet Count 127x10^3/uL (140-400) 109x10^3/uL (140-400) Prothrombin Time 17.6SEC (11.7-14.0) Prothromb Time International Ratio 1.5 (0.8-1.1) Activated Partial Thromboplast Time 30SEC (24-38) Fibrinogen 596mg/dL (200-440) D-Dimer (Zoraida) 2.95ug/mlFEU (0.00-0.50) Glucose (Fingerstick) 275mg/dL (70-99) 288mg/dL (70-99) White Blood Count 29.6x10^3/uL (4.0-11.0) Red Blood Count 3.13x10^6/uL (3.50-5.40) Hemoglobin 9.0g/dL (12.0-15.5) Hematocrit 27.1% (36.0-47.0) Mean Corpuscular Volume 87fL (79-100) Mean Corpuscular Hemoglobin 29pg (25-35) Mean Corpuscular Hemoglobin Concent 33g/dL (31-37) Red Cell Distribution Width 15.4% (11.5-14.5) Neutrophils (%) (Auto) 90% (31-73) Lymphocytes (%) (Auto) 4% (24-48) Monocytes (%) (Auto) 5% (0-9) Eosinophils (%) (Auto) 0% (0-3) Basophils (%) (Auto) 0% (0-3) Neutrophils # (Auto) 26.6x10^3uL (1.8-7.7) Lymphocytes # (Auto) 1.3x10^3/uL (1.0-4.8) Monocytes # (Auto) 1.6x10^3/uL (0.0-1.1) Eosinophils # (Auto) 0.0x10^3/uL (0.0-0.7) Basophils # (Auto) 0.0x10^3/uL (0.0-0.2) Sodium Level 140mmol/L (136-145) Potassium Level 4.3mmol/L (3.5-5.1) Chloride Level 108mmol/L (98-107) Carbon Dioxide Level 23mmol/L (21-32) Anion Gap 9 (6-14) Blood Urea Nitrogen 40mg/dL (7-20) Creatinine 1.5mg/dL (0.6-1.0) Estimated GFR (Cockcroft-Gault) 33.5 Glucose Level 332mg/dL (70-99) Calcium Level 7.3mg/dL (8.5-10.1) Phosphorus Level 2.3mg/dL (2.6-4.7) Magnesium Level 2.3mg/dL (1.8-2.4) Test 01/13/17 06:35 01/13/17 07:35 Glucose (Fingerstick) 311mg/dL (70-99) O2 Saturation 98% (92-99) Arterial Blood pH 7.43 (7.35-7.45) Arterial Blood pCO2 at Patient Temp 32mmHg (35-46) Arterial Blood pO2 at Patient Temp 128mmHg (65-108) Arterial Blood HCO3 21mmol/L (21-28) Arterial Blood Base Excess -3mmol/L (-3-3) FiO2 30 Problem List Problems Medical Problems: (1) Pancreatic mass Status: Acute Assessment/Plan s/p xlap, palliative resection vent wean supportive care Problems: JOSÉ MIGUEL VALERO MD Jan 13, 2017 09:03
--- NOTE | 2017-01-13 10:35 | PDOC ---
Renal-Progress Notes Subjective Notes Notes NONE, INTUBATED History of Present Illness Hx of present illness STABLE Vitals Vitals Vital Signs Date Time Temp Pulse Resp B/P Pulse Ox O2 Delivery O2 Flow Rate FiO2 01/13/17 10:00 102 16 127/68 100 Ventilator 01/13/17 08:00 98.5 98.5 Weight Weight [ ] I.O. Intake and Output Intake and Output 01/13/17 07:00 Intake Total 3128.3133 ml Output Total 2105 ml Balance 1023.3133 ml Intake Oral 0 ml IV Total 3128.3133 ml Output Urine Total 680 ml Stool Total 250 ml Gastric Drainage Total 400 ml Drainage Total 775 ml Labs Labs Laboratory Tests Test 01/12/17 14:32 01/12/17 17:04 01/13/17 00:23 01/13/17 06:30 Platelet Count 127x10^3/uL (140-400) 109x10^3/uL (140-400) Prothrombin Time 17.6SEC (11.7-14.0) Prothromb Time International Ratio 1.5 (0.8-1.1) Activated Partial Thromboplast Time 30SEC (24-38) Fibrinogen 596mg/dL (200-440) D-Dimer (Zoraida) 2.95ug/mlFEU (0.00-0.50) Glucose (Fingerstick) 275mg/dL (70-99) 288mg/dL (70-99) White Blood Count 29.6x10^3/uL (4.0-11.0) Red Blood Count 3.13x10^6/uL (3.50-5.40) Hemoglobin 9.0g/dL (12.0-15.5) Hematocrit 27.1% (36.0-47.0) Mean Corpuscular Volume 87fL (79-100) Mean Corpuscular Hemoglobin 29pg (25-35) Mean Corpuscular Hemoglobin Concent 33g/dL (31-37) Red Cell Distribution Width 15.4% (11.5-14.5) Neutrophils (%) (Auto) 90% (31-73) Lymphocytes (%) (Auto) 4% (24-48) Monocytes (%) (Auto) 5% (0-9) Eosinophils (%) (Auto) 0% (0-3) Basophils (%) (Auto) 0% (0-3) Neutrophils # (Auto) 26.6x10^3uL (1.8-7.7) Lymphocytes # (Auto) 1.3x10^3/uL (1.0-4.8) Monocytes # (Auto) 1.6x10^3/uL (0.0-1.1) Eosinophils # (Auto) 0.0x10^3/uL (0.0-0.7) Basophils # (Auto) 0.0x10^3/uL (0.0-0.2) Sodium Level 140mmol/L (136-145) Potassium Level 4.3mmol/L (3.5-5.1) Chloride Level 108mmol/L (98-107) Carbon Dioxide Level 23mmol/L (21-32) Anion Gap 9 (6-14) Blood Urea Nitrogen 40mg/dL (7-20) Creatinine 1.5mg/dL (0.6-1.0) Estimated GFR (Cockcroft-Gault) 33.5 Glucose Level 332mg/dL (70-99) Calcium Level 7.3mg/dL (8.5-10.1) Phosphorus Level 2.3mg/dL (2.6-4.7) Magnesium Level 2.3mg/dL (1.8-2.4) Test 01/13/17 06:35 01/13/17 07:35 Glucose (Fingerstick) 311mg/dL (70-99) O2 Saturation 98% (92-99) Arterial Blood pH 7.43 (7.35-7.45) Arterial Blood pCO2 at Patient Temp 32mmHg (35-46) Arterial Blood pO2 at Patient Temp 128mmHg (65-108) Arterial Blood HCO3 21mmol/L (21-28) Arterial Blood Base Excess -3mmol/L (-3-3) FiO2 30 Micro Micro Microbiology 01/10/17 Blood Culture - Preliminary, Resulted NO GROWTH AFTER 2 DAYS Review of Systems Constitutional: yes: no symptom reported Physical Exam General Appearance: no apparent distress Respiratory: decreased breath sounds Heart: S1S2 Abdomen: other (HYPOACTIVE) Extremities: pulses present Assessment Assessment IMP FREDIS BETTER WITH CR DOWN TO 1.5 RESP FAILURE PANCREATIC MASS PALLIATIVE RESECTION LEUCOCYTOSIS PLAN ANTIBIOTICS TPN IVF'S WILL FOLLOW LEIA ISIDRO MD Jan 13, 2017 10:34
--- NOTE | 2017-01-13 10:54 | PDOC ---
PROGRESS NOTES Chief Complaint Chief Complaint Pancreatic mass w/obstruction ASSESSMENT AND PLAN: 1. Obstruction: s/p palliative resection on 01/[address] Jenkins; ostomy placed 2. Pancreas CA w/ liver mets: awaiting path confirmation. Dr Mckeon following 3. Anemia: acute blood loss. s/p transfusion of PRBC x10, FFP x6, cryo x1, plts x2. monitor closely 4. coagulopathy: severe hypofibrinogenemia post op. monitor closely. transfuse FFP as indicated 5. SIRS: 2/2 above 6. Acute respiratory failure: intubated for OR; 7. Nutrition: currently on TPN; NG/PO feeds as per surgery 8. Hyponatremia: resolved. 9. FREDIS: sl improved. cont IVF NS, K repletion cautiously. monitor 10. Prophylaxis: PPI. Lovenox on hold with massive bleed. pt prob high risk for DVTs with malignancy CC time: 35 min Vitals Vitals Vital Signs Date Time Temp Pulse Resp B/P Pulse Ox O2 Delivery O2 Flow Rate FiO2 01/13/17 10:40 Ventilator 01/13/17 10:00 102 16 127/68 100 01/13/17 08:00 98.5 98.5 Physical Exam General: No acute distress, Other (intubated, sedated) Heart: Regular rate, Normal S1 Lungs: Clear Abdomen: Soft, No tenderness, Other (JANICE serosang, ostomy with brown stool) Extremities: No clubbing Skin: No significant lesion Labs LABS Laboratory Tests Test 01/12/17 14:32 01/12/17 17:04 01/13/17 00:23 01/13/17 06:30 Platelet Count 127x10^3/uL (140-400) 109x10^3/uL (140-400) Prothrombin Time 17.6SEC (11.7-14.0) Prothromb Time International Ratio 1.5 (0.8-1.1) Activated Partial Thromboplast Time 30SEC (24-38) Fibrinogen 596mg/dL (200-440) D-Dimer (Zoraida) 2.95ug/mlFEU (0.00-0.50) Glucose (Fingerstick) 275mg/dL (70-99) 288mg/dL (70-99) White Blood Count 29.6x10^3/uL (4.0-11.0) Red Blood Count 3.13x10^6/uL (3.50-5.40) Hemoglobin 9.0g/dL (12.0-15.5) Hematocrit 27.1% (36.0-47.0) Mean Corpuscular Volume 87fL (79-100) Mean Corpuscular Hemoglobin 29pg (25-35) Mean Corpuscular Hemoglobin Concent 33g/dL (31-37) Red Cell Distribution Width 15.4% (11.5-14.5) Neutrophils (%) (Auto) 90% (31-73) Lymphocytes (%) (Auto) 4% (24-48) Monocytes (%) (Auto) 5% (0-9) Eosinophils (%) (Auto) 0% (0-3) Basophils (%) (Auto) 0% (0-3) Neutrophils # (Auto) 26.6x10^3uL (1.8-7.7) Lymphocytes # (Auto) 1.3x10^3/uL (1.0-4.8) Monocytes # (Auto) 1.6x10^3/uL (0.0-1.1) Eosinophils # (Auto) 0.0x10^3/uL (0.0-0.7) Basophils # (Auto) 0.0x10^3/uL (0.0-0.2) Sodium Level 140mmol/L (136-145) Potassium Level 4.3mmol/L (3.5-5.1) Chloride Level 108mmol/L (98-107) Carbon Dioxide Level 23mmol/L (21-32) Anion Gap 9 (6-14) Blood Urea Nitrogen 40mg/dL (7-20) Creatinine 1.5mg/dL (0.6-1.0) Estimated GFR (Cockcroft-Gault) 33.5 Glucose Level 332mg/dL (70-99) Calcium Level 7.3mg/dL (8.5-10.1) Phosphorus Level 2.3mg/dL (2.6-4.7) Magnesium Level 2.3mg/dL (1.8-2.4) Test 01/13/17 06:35 01/13/17 07:35 Glucose (Fingerstick) 311mg/dL (70-99) O2 Saturation 98% (92-99) Arterial Blood pH 7.43 (7.35-7.45) Arterial Blood pCO2 at Patient Temp 32mmHg (35-46) Arterial Blood pO2 at Patient Temp 128mmHg (65-108) Arterial Blood HCO3 21mmol/L (21-28) Arterial Blood Base Excess -3mmol/L (-3-3) FiO2 30 Review of Systems Review of Systems sedated, intubated JAC VILLA MD Jan 13, 2017 10:54
--- NOTE | 2017-01-13 11:22 | PDOC ---
Objective: Objective: Per RN - improving, +ostomy output, some NG output (seems bilious). Vital Signs: Vital Signs Date Time Temp Pulse Resp B/P Pulse Ox O2 Delivery O2 Flow Rate FiO2 01/13/17 11:00 100 15 134/55 100 Ventilator 01/13/17 08:00 98.5 98.5 Labs: Laboratory Tests Test 01/12/17 14:32 01/12/17 17:04 01/13/17 00:23 01/13/17 06:30 Platelet Count 127x10^3/uL 109x10^3/uL Prothrombin Time 17.6SEC Prothromb Time International Ratio 1.5 Activated Partial Thromboplast Time 30SEC Fibrinogen 596mg/dL D-Dimer (Zoraida) 2.95ug/mlFEU Glucose (Fingerstick) 275mg/dL 288mg/dL White Blood Count 29.6x10^3/uL Red Blood Count 3.13x10^6/uL Hemoglobin 9.0g/dL Hematocrit 27.1% Mean Corpuscular Volume 87fL Mean Corpuscular Hemoglobin 29pg Mean Corpuscular Hemoglobin Concent 33g/dL Red Cell Distribution Width 15.4% Neutrophils (%) (Auto) 90% Lymphocytes (%) (Auto) 4% Monocytes (%) (Auto) 5% Eosinophils (%) (Auto) 0% Basophils (%) (Auto) 0% Neutrophils # (Auto) 26.6x10^3uL Lymphocytes # (Auto) 1.3x10^3/uL Monocytes # (Auto) 1.6x10^3/uL Eosinophils # (Auto) 0.0x10^3/uL Basophils # (Auto) 0.0x10^3/uL Sodium Level 140mmol/L Potassium Level 4.3mmol/L Chloride Level 108mmol/L Carbon Dioxide Level 23mmol/L Anion Gap 9 Blood Urea Nitrogen 40mg/dL Creatinine 1.5mg/dL Estimated GFR (Cockcroft-Gault) 33.5 Glucose Level 332mg/dL Calcium Level 7.3mg/dL Phosphorus Level 2.3mg/dL Magnesium Level 2.3mg/dL Test 01/13/17 06:35 01/13/17 07:35 Glucose (Fingerstick) 311mg/dL O2 Saturation 98% Arterial Blood pH 7.43 Arterial Blood pCO2 at Patient Temp 32mmHg Arterial Blood pO2 at Patient Temp 128mmHg Arterial Blood HCO3 21mmol/L Arterial Blood Base Excess -3mmol/L FiO2 30 PE: GEN: intubated LUNGS: vent HEART: RRR ABD: ostomy w/ brown liquid, 2 drains, dressing NEURO/PSYCH: eyes open, nods A/P: Metastatic pancreatic mass -s/p exp lap, BENITA, partial colectomy, extended small-bowel resection, left nephrectomy, splenectomy, distal pancreatectomy, liver biopsy 01/10; re- exploration 01/11 -intubated in ICU, NG, TPN, IV PPI -anemia, thrombocytopenia s/p multiple transfusions --->Hgb stable, no bleeding -elevated CA19-9 -onc following, no path -- Continue same per GI. RED WINSTON Jan 13, 2017 11:22
[2017-01-13] MEDS ORDERED: PIPERACILLIN/TAZOBACTAM 3.375 GM in IV NORMAL SALINE 50ML 50 ML IV SCH (12:00)
--- NOTE | 2017-01-13 12:45 | RAD ---
Portable abdomen, 01/13/2017: History: Check NG tube placement A supine view of the upper abdomen demonstrates an NG tube extending into the proximal aspect of the stomach. Its tip is doubled back upon itself directed superiorly near the level of the GE junction. The tube should be advanced for better positioning. Surgical clips overlie the abdomen and pelvis. There is a paucity of bowel gas in a nonspecific pattern. IMPRESSION: The tip of the NG tube is doubled back upon itself at the level of the GE junction. Advancement of the tube is advised.
[2017-01-13] MEDS: TPN PER PHARMACY MC PRN (12:51)
--- NOTE | 2017-01-13 14:04 | PDOC ---
PROGRESS NOTES Subjective Subjective c/c - f/u of Pancreatic mass Objective Objective Vital Signs Date Time Temp Pulse Resp B/P Pulse Ox O2 Delivery O2 Flow Rate FiO2 01/13/17 13:08 99 Ventilator 01/13/17 13:00 110 15 127/57 01/13/17 12:00 98.1 98.1 Intake and Output 01/13/17 07:00 Intake Total 3128.3133 ml Output Total 2105 ml Balance 1023.3133 ml Intake Oral 0 ml IV Total 3128.3133 ml Output Urine Total 680 ml Stool Total 250 ml Gastric Drainage Total 400 ml Drainage Total 775 ml Physical Exam Heart: Normal S1, Normal S2 Lungs: Clear to auscultation Psych/Mental Status: Other (sedated on vent) Assessment Assessment Problems Medical Problems: (1) Pancreatic mass Status: Acute IMPRESSION AND PLAN: 1. 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 The mass is noted to be invading the spleen, stomach and splenic flexure of the colon with associated colonic obstruction. There was also evidence of an 18 mm lesion in the left lobe of the liver concerning for metastatic focus. I also discussed in detail with Dr. Erik Jenkins and in view of colon obstruction caused by the mass, I agreed to proceed with surgery which was done 01/10/2017. All gross disease resected. f/u pathology. 2. CT scan of the chest 01/09/17 : 3 mm nonspecific left upper lobe pulmonary nodule. Attention on follow-up imaging. Bone scan 01/09/17 is neg. f/u CA 19-9 level. 3. Liver metastasis per CT abdomen. I discussed with Dr. Erik Jenkins. s/p resection of 2 lesions. 4. Post op care in ICU. Pt on vent. 5. Anemia: acute blood loss. s/p transfusion of PRBC x10, FFP x6, cryo x1, plts x2. monitor closely. Hb 9.0. Comment Review of Relevant I have reviewed the following items [place] (where applicable) has been applied. Labs Laboratory Tests Test 01/12/17 01:00 01/12/17 05:30 01/12/17 07:20 01/12/17 14:32 Nasal Screen MRSA (PCR) Negative (Negative) White Blood Count 24.6x10^3/uL (4.0-11.0) Red Blood Count 3.49x10^6/uL (3.50-5.40) Hemoglobin 10.1g/dL (12.0-15.5) Hematocrit 29.2% (36.0-47.0) Mean Corpuscular Volume 84fL (79-100) Mean Corpuscular Hemoglobin 29pg (25-35) Mean Corpuscular Hemoglobin Concent 34g/dL (31-37) Red Cell Distribution Width 15.2% (11.5-14.5) Platelet Count 147x10^3/uL (140-400) 127x10^3/uL (140-400) Neutrophils (%) (Auto) 90% (31-73) Lymphocytes (%) (Auto) 6% (24-48) Monocytes (%) (Auto) 4% (0-9) Eosinophils (%) (Auto) 0% (0-3) Basophils (%) (Auto) 0% (0-3) Neutrophils # (Auto) 22.1x10^3uL (1.8-7.7) Lymphocytes # (Auto) 1.6x10^3/uL (1.0-4.8) Monocytes # (Auto) 0.9x10^3/uL (0.0-1.1) Eosinophils # (Auto) 0.0x10^3/uL (0.0-0.7) Basophils # (Auto) 0.0x10^3/uL (0.0-0.2) Segmented Neutrophils % 73% (35-66) Band Neutrophils % 21% (0-9) Lymphocytes % 3% (24-48) Monocytes % 3% (0-10) Platelet Estimate Adequate (ADEQUATE) Sodium Level 141mmol/L (136-145) Potassium Level 3.7mmol/L (3.5-5.1) Chloride Level 109mmol/L (98-107) Carbon Dioxide Level 22mmol/L (21-32) Anion Gap 10 (6-14) Blood Urea Nitrogen 36mg/dL (7-20) Creatinine 1.8mg/dL (0.6-1.0) Estimated GFR (Cockcroft-Gault) 27.1 BUN/Creatinine Ratio 20 (6-20) Glucose Level 267mg/dL (70-99) Calcium Level 7.3mg/dL (8.5-10.1) Phosphorus Level 2.5mg/dL (2.6-4.7) Magnesium Level 1.5mg/dL (1.8-2.4) Total Bilirubin 0.6mg/dL (0.2-1.0) Aspartate Amino Transf (AST/SGOT) 2719U/L (15-37) Alanine Aminotransferase (ALT/SGPT) 2277U/L (14-59) Alkaline Phosphatase 64U/L (46-116) Total Protein 4.0g/dL (6.4-8.2) Albumin 1.6g/dL (3.4-5.0) Albumin/Globulin Ratio 0.7 (1.0-1.7) Triglycerides Level 140mg/dL (0-150) O2 Saturation 98% (92-99) Arterial Blood pH 7.43 (7.35-7.45) Arterial Blood pCO2 at Patient Temp 31mmHg (35-46) Arterial Blood pO2 at Patient Temp 118mmHg (65-108) Arterial Blood HCO3 20mmol/L (21-28) Arterial Blood Base Excess -4mmol/L (-3-3) FiO2 30 Prothrombin Time 17.6SEC (11.7-14.0) Prothromb Time International Ratio 1.5 (0.8-1.1) Activated Partial Thromboplast Time 30SEC (24-38) Fibrinogen 596mg/dL (200-440) D-Dimer (Zoraida) 2.95ug/mlFEU (0.00-0.50) Test 01/12/17 17:04 01/13/17 00:23 01/13/17 06:30 01/13/17 06:35 Glucose (Fingerstick) 275mg/dL (70-99) 288mg/dL (70-99) 311mg/dL (70-99) White Blood Count 29.6x10^3/uL (4.0-11.0) Red Blood Count 3.13x10^6/uL (3.50-5.40) Hemoglobin 9.0g/dL (12.0-15.5) Hematocrit 27.1% (36.0-47.0) Mean Corpuscular Volume 87fL (79-100) Mean Corpuscular Hemoglobin 29pg (25-35) Mean Corpuscular Hemoglobin Concent 33g/dL (31-37) Red Cell Distribution Width 15.4% (11.5-14.5) Platelet Count 109x10^3/uL (140-400) Neutrophils (%) (Auto) 90% (31-73) Lymphocytes (%) (Auto) 4% (24-48) Monocytes (%) (Auto) 5% (0-9) Eosinophils (%) (Auto) 0% (0-3) Basophils (%) (Auto) 0% (0-3) Neutrophils # (Auto) 26.6x10^3uL (1.8-7.7) Lymphocytes # (Auto) 1.3x10^3/uL (1.0-4.8) Monocytes # (Auto) 1.6x10^3/uL (0.0-1.1) Eosinophils # (Auto) 0.0x10^3/uL (0.0-0.7) Basophils # (Auto) 0.0x10^3/uL (0.0-0.2) Sodium Level 140mmol/L (136-145) Potassium Level 4.3mmol/L (3.5-5.1) Chloride Level 108mmol/L (98-107) Carbon Dioxide Level 23mmol/L (21-32) Anion Gap 9 (6-14) Blood Urea Nitrogen 40mg/dL (7-20) Creatinine 1.5mg/dL (0.6-1.0) Estimated GFR (Cockcroft-Gault) 33.5 Glucose Level 332mg/dL (70-99) Calcium Level 7.3mg/dL (8.5-10.1) Phosphorus Level 2.3mg/dL (2.6-4.7) Magnesium Level 2.3mg/dL (1.8-2.4) Test 01/13/17 07:35 01/13/17 12:08 O2 Saturation 98% (92-99) Arterial Blood pH 7.43 (7.35-7.45) Arterial Blood pCO2 at Patient Temp 32mmHg (35-46) Arterial Blood pO2 at Patient Temp 128mmHg (65-108) Arterial Blood HCO3 21mmol/L (21-28) Arterial Blood Base Excess -3mmol/L (-3-3) FiO2 30 Glucose (Fingerstick) 246mg/dL (70-99) Laboratory Tests Test 01/12/17 14:32 01/12/17 17:04 01/13/17 00:23 01/13/17 06:30 Platelet Count 127x10^3/uL (140-400) 109x10^3/uL (140-400) Prothrombin Time 17.6SEC (11.7-14.0) Prothromb Time International Ratio 1.5 (0.8-1.1) Activated Partial Thromboplast Time 30SEC (24-38) Fibrinogen 596mg/dL (200-440) D-Dimer (Zoraida) 2.95ug/mlFEU (0.00-0.50) Glucose (Fingerstick) 275mg/dL (70-99) 288mg/dL (70-99) White Blood Count 29.6x10^3/uL (4.0-11.0) Red Blood Count 3.13x10^6/uL (3.50-5.40) Hemoglobin 9.0g/dL (12.0-15.5) Hematocrit 27.1% (36.0-47.0) Mean Corpuscular Volume 87fL (79-100) Mean Corpuscular Hemoglobin 29pg (25-35) Mean Corpuscular Hemoglobin Concent 33g/dL (31-37) Red Cell Distribution Width 15.4% (11.5-14.5) Neutrophils (%) (Auto) 90% (31-73) Lymphocytes (%) (Auto) 4% (24-48) Monocytes (%) (Auto) 5% (0-9) Eosinophils (%) (Auto) 0% (0-3) Basophils (%) (Auto) 0% (0-3) Neutrophils # (Auto) 26.6x10^3uL (1.8-7.7) Lymphocytes # (Auto) 1.3x10^3/uL (1.0-4.8) Monocytes # (Auto) 1.6x10^3/uL (0.0-1.1) Eosinophils # (Auto) 0.0x10^3/uL (0.0-0.7) Basophils # (Auto) 0.0x10^3/uL (0.0-0.2) Sodium Level 140mmol/L (136-145) Potassium Level 4.3mmol/L (3.5-5.1) Chloride Level 108mmol/L (98-107) Carbon Dioxide Level 23mmol/L (21-32) Anion Gap 9 (6-14) Blood Urea Nitrogen 40mg/dL (7-20) Creatinine 1.5mg/dL (0.6-1.0) Estimated GFR (Cockcroft-Gault) 33.5 Glucose Level 332mg/dL (70-99) Calcium Level 7.3mg/dL (8.5-10.1) Phosphorus Level 2.3mg/dL (2.6-4.7) Magnesium Level 2.3mg/dL (1.8-2.4) Test 01/13/17 06:35 01/13/17 07:35 01/13/17 12:08 Glucose (Fingerstick) 311mg/dL (70-99) 246mg/dL (70-99) O2 Saturation 98% (92-99) Arterial Blood pH 7.43 (7.35-7.45) Arterial Blood pCO2 at Patient Temp 32mmHg (35-46) Arterial Blood pO2 at Patient Temp 128mmHg (65-108) Arterial Blood HCO3 21mmol/L (21-28) Arterial Blood Base Excess -3mmol/L (-3-3) FiO2 30 Microbiology 01/10/17 Blood Culture - Preliminary, Resulted NO GROWTH AFTER 2 DAYS Medications Current Medications Sodium Chloride (Iv Sodium Chloride 0.45%) 1,000 ml @ 80 mls/hr [id number] IV Last administered on 01/08/17 22:17; Start 01/08/17 at 21:03; Stop 01/09/17 at 09: 23; Status DC Ondansetron HCl (Zofran) 4 mg PRN Q6HRS PRN IV NAUSEA/VOMITING Last administered on 01/09/17 15:51; Start 01/08/17 at 21:15; Stop 01/10/17 at 17:41; Status DC Prochlorperazine Edisylate (Compazine) 10 mg PRN Q6HRS PRN IV NAUSEA/VOMITING; Start 01/08/17 at 21:15 Prochlorperazine (Compazine) 25 mg PRN Q12HR PRN PA NAUSEA/VOMITING; Start 01/08 at 21:15 Al Hydroxide/Mg Hydroxide (Mylanta Plus Xs) 30 ml PRN Q3HRS PRN PO HEARTBURN / GAS; Start 01/08/17 at 21:15 Calcium Carbonate/ Glycine (Tums) 500 mg PRN Q3HRS PRN PO UPSET STOMACH; Start 01/08/17 at 21:15; Stop 01/08/17 at 21:20; Status DC Oxycodone HCl (Roxicodone) 5 mg PRN Q3HRS PRN PO BREAKTHROUGH PAIN Last administered on 01/09/17 20:54; Start 01/08/17 at 21:15 Morphine Sulfate 1 mg PRN Q2HR PRN IV PAIN Last administered on 01/10/17 08:51 ; Start 01/08/17 at 21:15; Stop 01/11/17 at 08:13; Status DC Acetaminophen (Tylenol) 650 mg PRN Q6HRS PRN PO MILD PAIN / TEMP; Start at 21:15 Docusate Sodium (Colace) 100 mg BID PO Last administered on 01/11/17 21:38; Start 01/08/17 at 22:00 Magnesium Hydroxide (Milk Of Magnesia) 2,400 mg PRN Q12HR PRN PO CONSTIPATION; Start 01/08/17 at 21:15 Bisacodyl (Dulcolax Supp) 10 mg PRN DAILY PRN PA CONSTIPATION; Start 01/08/17 at 21:15 Enoxaparin Sodium (Lovenox 40mg Syringe) 40 mg Q24H SQ ; Start 01/08/17 at 22:00 ; Stop 01/08/17 at 22:00; Status DC Pantoprazole Sodium (Protonix Vial) 40 mg DAILYAC IVP Last administered on 01/13 08:41; Start 01/09/17 at 07:30 Enoxaparin Sodium 30 mg 30 mg Q24H SQ Last administered on 01/08/17 22:20; Start 01/08/17 at 22:00; Stop 01/09/17 at 09:24; Status DC Cefoxitin Sodium (Mefoxin 2gm Ivpb For Omni) 100 ml @ 200 mls/hr 1X PERIOP IV ; Start 01/09/17 at 08:45; Stop 01/10/17 at 11:49; Status DC Cetirizine HCl (Zyrtec) 10 mg DAILY PO Last administered on 01/09/17 10:27; Start 01/09/17 at 10:30 Guaifenesin (Mucinex) 600 mg PRN Q8HRS PRN PO CONGESTION; Start 01/09/17 at 09: 30 Levothyroxine Sodium (Synthroid) 50 mcg DAILYAC PO Last administered on 10:27; Start 01/09/17 at 10:30; Stop 01/11/17 at 08:19; Status DC Tramadol HCl (Ultram) 50 mg PRN Q6HRS PRN PO PAIN; Start 01/09/17 at 09:30 Non-Formulary Medication 2 puff QID INH ; Start 01/09/17 at 13:00; Status UNV Metoprolol Tartrate (Lopressor) 25 mg BID PO Last administered on 01/11/17 21: 38; Start 01/09/17 at 10:30 Fluticasone Propionate 2 spray 2 spray DAILY NS Last administered on 01/09/17 10:28; Start 01/09/17 at 10:30; Stop 01/09/17 at 13:10; Status DC Amino Acids/ Electrolytes/ Dextrose (Clinimix E 4.25%-5% Solution) 1,000 ml @ 80 mls/hr [id number] IV Last administered on 01/10/17 01:00; Start 01/09/17 at 10: 30; Stop 01/11/17 at 21:59; Status DC Enoxaparin Sodium (Lovenox 30mg Syringe) 30 mg Q24H SQ ; Start 01/09/17 at 10:00 ; Stop 01/09/17 at 10:00; Status DC Enoxaparin Sodium (Lovenox 30mg Syringe) 30 mg 1X ONCE SQ ; Start 01/09/17 at 10 :00; Stop 01/09/17 at 10:00; Status DC Enoxaparin Sodium (Lovenox 30mg Syringe) 30 mg Q24H SQ ; Start 01/10/17 at 21:00 ; Stop 01/11/17 at 09:42; Status DC Albuterol Sulfate (Ventolin Neb Soln) 2.5 mg RTQID NEB Last administered on t 11:32; Start 01/09/17 at 12:00 Fluticasone Propionate (Flonase) 2 spray DAILY NS ; Start 01/09/17 at 13:10 Ondansetron HCl (Zofran) 4 mg PRN Q6HRS PRN IV NAUSEA/VOMITING; Start 01/10/17 at 07:30; Stop 01/10/17 at 18:00; Status DC Fentanyl Citrate (Fentanyl 2ml Vial) 25 mcg PRN Q5MIN PRN IV MILD PAIN; Start 01/10/17 at 07:30; Stop 01/10/17 at 18:00; Status DC Fentanyl Citrate 50 mcg 50 mcg PRN Q5MIN PRN IV MODERATE PAIN; Start 01/10/17 at 07:30; Stop 01/10/17 at 18:00; Status DC Lactated Ringer's (Iv Lactated Ringers) 1,000 ml @ 30 mls/hr Q24H IV ; Start at 07:28; Stop 01/10/17 at 19:27; Status DC Prochlorperazine Edisylate (Compazine) 5 mg PACU PRN PRN IV NAUSEA, MRX1; Start 01/10/17 at 07:30; Stop 01/10/17 at 18:00; Status DC Desflurane (Suprane) 90 ml STK-MED ONCE IH ; Start 01/10/17 at 09:03; Stop at 09:04; Status DC Fentanyl Citrate (Fentanyl 2ml Vial) 100 mcg STK-MED ONCE .ROUTE ; Start at 09:03; Stop 01/10/17 at 09:04; Status DC Rocuronium Cecil 50 mg 50 mg STK-MED ONCE .ROUTE ; Start 01/10/17 at 09:03; Stop 01/10/17 at 09:04; Status DC Propofol (Diprivan) 20 ml @ As Directed STK-MED ONCE IV ; Start 01/10/17 at 09:04 ; Stop 01/10/17 at 09:05; Status DC Ondansetron HCl (Zofran) 4 mg STK-MED ONCE .ROUTE ; Start 01/10/17 at 09:04; Stop 01/10/17 at 09:05; Status DC Dexamethasone Sodium Phosphate (Decadron) 20 mg STK-MED ONCE .ROUTE ; Start 01/10 at 09:04; Stop 01/10/17 at 09:05; Status DC Lidocaine HCl (Lidocaine HCl 2% Abboject) 100 mg STK-MED ONCE .ROUTE ; Start 01/10/17 at 09:04; Stop 01/10/17 at 09:05; Status DC Phenylephrine HCl (Rodrigue-Synephrine Inj) 10 mg STK-MED ONCE .ROUTE ; Start at 09:27; Stop 01/10/17 at 09:28; Status DC Fentanyl Citrate (Fentanyl 5ml Vial) 250 mcg STK-MED ONCE .ROUTE ; Start at 10:17; Stop 01/10/17 at 10:18; Status DC Rocuronium Cecil 50 mg 50 mg STK-MED ONCE .ROUTE ; Start 01/10/17 at 10:26; Stop 01/10/17 at 10:27; Status DC Albumin Human (Plasmanate) 500 ml @ As Directed STK-MED ONCE IV ; Start at 11:32; Stop 01/10/17 at 11:33; Status DC Lorazepam (Ativan) 2 mg STK-MED ONCE .ROUTE ; Start 01/10/17 at 11:38; Stop at 11:39; Status DC Cellulose 1 each 1 each STK-MED ONCE .ROUTE Last administered on 01/10/17 10:23 ; Start 01/10/17 at 12:09; Stop 01/10/17 at 12:10; Status DC Albumin Human (Plasmanate) 500 ml @ As Directed STK-MED ONCE IV ; Start at 12:14; Stop 01/10/17 at 12:15; Status DC Phenylephrine HCl (Rodrigue-Synephrine Inj) 10 mg STK-MED ONCE .ROUTE ; Start at 12:14; Stop 01/10/17 at 12:15; Status DC Cellulose 1 each STK-MED ONCE .ROUTE Last administered on 01/10/17 10:23; Start 01/10/17 at 12:46; Stop 01/10/17 at 12:47; Status DC Lorazepam (Ativan) 2 mg STK-MED ONCE .ROUTE ; Start 01/10/17 at 12:47; Stop at 12:48; Status DC Phenylephrine HCl (Rodrigue-Synephrine Inj) 10 mg STK-MED ONCE .ROUTE ; Start at 12:55; Stop 01/10/17 at 12:56; Status DC Vasopressin (Vasostrict) 20 unit STK-MED ONCE .ROUTE ; Start 01/10/17 at 12:58; Stop 01/10/17 at 12:59; Status DC Norepinephrine Bitartrate (Levophed Vial) 4 mg STK-MED ONCE IV ; Start 01/10/17 at 13:00; Stop 01/10/17 at 13:01; Status DC Norepinephrine Bitartrate (Levophed Vial) 4 mg STK-MED ONCE IV ; Start 01/10/17 at 13:00; Stop 01/10/17 at 13:01; Status DC Rocuronium Cecil (Zemuron) 50 mg STK-MED ONCE .ROUTE ; Start 01/10/17 at 13:30 ; Stop 01/10/17 at 13:31; Status DC Famotidine (Pepcid) 20 mg QHS IVP ; Start 01/10/17 at 21:00; Stop 01/11/17 at 08: 15; Status DC Sodium Chloride 3 ml 3 ml QSHIFT PRN IV AFTER MEDS AND BLOOD DRAWS; Start at 13:45; Stop 01/12/17 at 14:37; Status DC Lactated Ringer's (Iv Lactated Ringers) 1,000 ml @ 100 mls/hr Q10H IV Last administered on 01/12/17 05:17; Start 01/10/17 at 13:43; Stop 01/12/17 at 13:21 ; Status DC Morphine Sulfate 1 mg PRN Q1HR PRN IV PAIN Last administered on 01/10/17 17:41 ; Start 01/10/17 at 13:45 Ondansetron HCl (Zofran) 4 mg PRN Q6HRS PRN IV NAUESA, 1ST CHOICE; Start at 13:45 Cellulose 2 each STK-MED ONCE TP Last administered on 01/10/17 10:23; Start 01/10/17 at 10:23; Stop 01/10/17 at 14:25; Status DC Lorazepam (Ativan) 2 mg STK-MED ONCE .ROUTE ; Start 01/10/17 at 20:59; Stop at 21:00; Status DC Rocuronium Cecil 50 mg 50 mg STK-MED ONCE .ROUTE ; Start 01/10/17 at 21:30; Stop 01/10/17 at 21:31; Status DC Cefoxitin Sodium (Mefoxin 2gm Ivpb For Omni) 100 ml @ As Directed STK-MED ONCE IV ; Start 01/10/17 at 21:45; Stop 01/10/17 at 21:46; Status DC Cellulose 1 each STK-MED ONCE .ROUTE Last administered on 01/10/17 21:47; Start 01/10/17 at 21:48; Stop 01/10/17 at 21:49; Status DC Cellulose 2 each STK-MED ONCE TP Last administered on 01/10/17 21:47; Start 01/10/17 at 21:47; Stop 01/10/17 at 22:14; Status DC Sodium Chloride 3 ml 3 ml QSHIFT PRN IV AFTER MEDS AND BLOOD DRAWS; Start at 22:30 Fentanyl Citrate 30 ml @ 0 mls/hr CONT PRN IV PROTOCOL Last administered on 03:49; Start 01/10/17 at 22:30 Propofol (Diprivan) 100 ml @ 0 mls/hr CONT PRN IV PER PROTOCOL Last administered on 01/12/17 14:16; Start 01/10/17 at 22:30 Chlorhexidine Gluconate 15 ml 15 ml BID MM Last administered on 01/13/17 08:41 ; Start 01/11/17 at 09:00 Sodium Chloride 1,000 ml @ 1,000 mls/hr 1X ONCE IV Last administered on 02:30; Start 01/11/17 at 02:30; Stop 01/11/17 at 03:29; Status DC Levothyroxine Sodium 25 mcg/ Sodium Chloride 5 ml @ 100 mls/hr DAILY IVP Last administered on 01/13/17 08:41; Start 01/11/17 at 09:00 Sodium Chloride (Iv Sodium Chloride 0.9% 500ml Bag) 500 ml @ 500 mls/hr 1X ONCE IV Last administered on 01/11/17 09:45; Start 01/11/17 at 09:45; Stop at 10:44; Status DC Heparin Sodium (Porcine) 5,000 unit Q8HRS SQ ; Start 01/11/17 at 14:00; Stop 01/11 at 16:45; Status DC Info 1 each 1 each PRN DAILY PRN MC SEE COMMENTS Last administered on 12:51; Start 01/11/17 at 10:15 Norepinephrine Bitartrate 8 mg/ Sodium Chloride 258 ml @ 0 mls/hr CONT PRN IV SEE I/O RECORD Last administered on 01/11/17 12:58; Start 01/11/17 at 11:15 Lactated Ringer's 500 ml @ 500 mls/hr PRN Q2HRS PRN IV HYPOTENTION; Start 01/11 at 13:15 Sodium Chloride 500 ml @ 500 mls/hr PRN Q2HR PRN IV hypotention; Start at 13:15 Sodium Acetate/ Potassium Acetate/ Potassium Phosphate/ Magnesium Sulfate/ Calcium Gluconate/ Chromium/Copper/ Manganese/Seleni/ Zn/Total Parenteral Nutrition/Amino Acids/Dextrose/ Fat Emulsion Intravenous (Potassium Phosphate/ Calcium Gluconate/ Multitrace-5 Conc/ Tpn - Tpn Flu... 1,512 ml @ 63 mls/hr TPN CONT IV Last administered on 01/11/17 21:39; Start 01/11/17 at 22:00; Stop 01/12/17 at 21:59; Status DC Info 1 each PRN DAILY PRN MC SEE COMMENTS; Start 01/11/17 at 13:45; Status UNV Cefoxitin Sodium 4 gm 4 gm STK-MED ONCE IV ; Start 01/10/17 at 12:00; Stop at 08:16; Status DC Sodium Chloride (Iv Sodium Chloride 0.9% 1000ml Bag) 1,000 ml @ 100 mls/hr Q10H IV Last administered on 01/13/17 09:15; Start 01/12/17 at 13:15 Insulin Aspart (Novolog) 0-7 UNITS TIDWMEALS SQ Last administered on 01/12/17 17:06; Start 01/12/17 at 17:00; Stop 01/13/17 at 00:28; Status DC Dextrose 12.5 gm 12.5 gm PRN Q15MIN PRN IV SEE COMMENTS; Start 01/12/17 at 13: 30 Magnesium Sulfate/ Dextrose 50 ml @ 25 mls/hr 1X ONCE IV Last administered on 01/12/17 14:16; Start 01/12/17 at 14:00; Stop 01/12/17 at 15:59; Status DC Potassium Phosphate 10 mmol/ Sodium Chloride 103.3333 ml @ 51.667 m... 1X ONCE IV Last administered on 01/12/17 14:16; Start 01/12/17 at 14:00; Stop 07/21 at 15:59; Status DC Sodium Acetate/ Potassium Acetate/ Potassium Phosphate/ Magnesium Sulfate/ Calcium Gluconate/ Chromium/Copper/ Manganese/Seleni/ Zn/Total Parenteral Nutrition/Amino Acids/Dextrose/ Fat Emulsion Intravenous (Potassium Phosphate/ Calcium Gluconate/ Multitrace-5 Conc/ Tpn - Tpn Flu... 1,512 ml @ 63 mls/hr TPN CONT IV Last administered on 01/12/17 22:09; Start 01/12/17 at 22:00; Stop 01/13/17 at 21:59 Darbepoetin Luis (Aranesp) 60 mcg [id number] SQ Last administered on 01/12/17 22 :09; Start 01/12/17 at 21:00 Insulin Aspart 0-7 UNITS Q6HRS SQ Last administered on 01/13/17 12:10; Start 01/13/17 at 00:30 Piperacillin Sod/ Tazobactam Sod 3.375 gm/Sodium Chloride 50 ml @ 100 mls/hr Q8HRS IV Last administered on 01/13/17 12:07; Start 01/13/17 at 12:00; Stop at 12:55; Status DC Sodium Acetate 70 meq/Potassium Acetate 60 meq/ Potassium Phosphate 20 mmol/ Magnesium Sulfate 15 meq/Calcium Gluconate 10 meq/ Multivitamins 10 ml/Chromium / Copper/Manganese/ Seleni/Zn 1 ml/ Insulin Human Regular 15 unit/ Total Parenteral Nutrition/Amino Acids/Dextrose/ Fat Emulsion Intravenous 1,512 ml @ 63 mls/hr TPN CONT IV ; Start 01/13/17 at 22:00; Stop 01/14/17 at 21:59 Piperacillin Sod/ Tazobactam Sod/ Sodium Chloride (Zosyn/Iv Sodium Chloride 0.9 % 50ml) 50 ml @ 100 mls/hr Q6HRS IV ; Start 01/13/17 at 18:00 Active Scripts Active Reported Pred Forte (Prednisolone Acetate) 1 Ml Drops.susp 1 Ml OU BID PRN Visine Allergy Relief Drop (Tetrahydrozoline Hcl/Zn Sulf) 15 Ml Drops 1 Drop OU PRN Thera Tears (Carboxymethylcellulose Sodium) 15 Ml Drops 1 Drop OU PRN Jaime-128 (Sodium Chloride) 15 Ml Drops 1 Drop OU PRN Tramadol Hcl 100 Mg Tbmp.24hr 100 Mg PO Q6H PRN Tramadol Hcl 50 Mg Tablet 50 Mg PO Q6H PRN Zyrtec (Cetirizine Hcl) 10 Mg Tablet 10 Mg PO DAILY Nasacort (Triamcinolone Acetonide) 10.8 Ml [place] 2 [place] NS DAILY Proair Hfa Inhaler (Albuterol Sulfate) 8.5 Gm Hfa.aer.ad 2 Puff INH QID Mucinex (Guaifenesin) 600 Mg Tablet.er 600 Mg PO Q8HRS PRN Levothyroxine Sodium 50 Mcg Tablet 50 Mcg PO DAILYAC Dyazide 37.5-25 Capsule (Triamterene/Hydrochlorothiazid) 1 Each Capsule 1 Cap PO DAILY Bystolic (Nebivolol) 5 Mg Tablet 5 Mg PO DAILY Vitals/I & O Vital Sign - Last 24 Hours 01/12/17 01/12/17 01/12/17 01/12/17 15:00 15:08 16:00 16:00 Temp 99.8 99.8 Pulse 114 112 Resp 12 12 B/P 82/50 98/44 Pulse Ox 100 100 100 O2 Delivery Ventilator Ventilator Ventilator Mechanical Ventilator 01/12/17 01/12/17 01/12/17 01/12/17 17:00 18:00 19:00 19:41 Pulse 104 105 104 Resp 12 12 12 B/P 93/43 101/47 96/49 Pulse Ox 100 100 100 100 O2 Delivery Ventilator Ventilator Ventilator Ventilator 01/12/17 01/12/17 01/12/17 01/12/17 20:00 20:00 21:00 21:00 Temp 97.5 97.5 Pulse 106 107 104 Resp 13 12 B/P 90/51 94/52 94/52 Pulse Ox 100 100 O2 Delivery Ventilator Mechanical Ventilator Ventilator 01/12/17 01/12/17 01/12/17 01/13/17 22:00 23:00 23:13 00:00 Temp 98.3 98.3 Pulse 106 104 110 Resp 14 13 14 B/P 97/44 109/53 104/59 Pulse Ox 100 100 100 100 O2 Delivery Ventilator Ventilator Ventilator Ventilator 01/13/17 01/13/17 01/13/17 01/13/17 00:00 01:00 01:12 02:01 Pulse 110 107 Resp 13 15 B/P 98/43 109/46 Pulse Ox 100 100 100 O2 Delivery Mechanical Ventilator Ventilator Ventilator Ventilator 01/13/17 01/13/17 01/13/17 01/13/17 03:04 03:26 04:00 04:00 Temp 98.7 98.7 Pulse 107 105 Resp 14 12 B/P 109/50 112/56 Pulse Ox 100 100 100 O2 Delivery Ventilator Ventilator Ventilator Mechanical Ventilator 01/13/17 01/13/17 01/13/17 01/13/17 04:54 05:00 06:00 07:00 Pulse 103 102 102 Resp 16 16 16 B/P 109/51 117/52 112/55 Pulse Ox 100 100 99 99 O2 Delivery Ventilator Ventilator Ventilator Ventilator 01/13/17 01/13/17 01/13/17 01/13/17 07:33 08:00 08:00 09:00 Temp 98.5 98.5 Pulse 102 106 Resp 16 15 B/P 109/57 101/49 Pulse Ox 99 100 99 O2 Delivery Ventilator Ventilator Mechanical Ventilator Ventilator 01/13/17 01/13/17 01/13/17 01/13/17 09:32 10:00 10:40 11:00 Pulse 102 100 Resp 16 15 B/P 127/68 134/55 Pulse Ox 99 100 100 O2 Delivery Ventilator Ventilator Ventilator Ventilator 01/13/17 01/13/17 01/13/17 01/13/17 11:32 12:00 12:00 13:00 Temp 98.1 98.1 Pulse 102 110 Resp 16 15 B/P 160/57 127/57 Pulse Ox 99 99 99 O2 Delivery Ventilator Ventilator Mechanical Ventilator Ventilator 01/13/17 13:08 Pulse Ox 99 O2 Delivery Ventilator Intake and Output 01/12/17 01/12/17 01/13/17 15:00 23:00 07:00 Intake Total 5 ml 1190.3133 ml 1933 ml Output Total 329 ml 821 ml 955 ml Balance -324 ml 369.3133 ml 978 ml STEF COOPER MD Jan 13, 2017 14:04
--- NOTE | 2017-01-13 16:23 | PDOC ---
PULMONARY PROGRESS NOTES Subjective pt sedated on vent Vitals Vital Signs Date Time Temp Pulse Resp B/P Pulse Ox O2 Delivery O2 Flow Rate FiO2 01/13/17 15:11 99 Ventilator 01/13/17 13:00 110 15 127/57 01/13/17 12:00 98.1 98.1 Lungs: Clear Cardiovascular: S1, S2 Abdomen: Other (dressiing in place) Extremities: No Edema Skin: Warm, Dry Labs Laboratory Tests Test 01/12/17 01:00 01/12/17 05:30 01/12/17 07:20 01/12/17 14:32 Nasal Screen MRSA (PCR) Negative (Negative) White Blood Count 24.6x10^3/uL (4.0-11.0) Red Blood Count 3.49x10^6/uL (3.50-5.40) Hemoglobin 10.1g/dL (12.0-15.5) Hematocrit 29.2% (36.0-47.0) Mean Corpuscular Volume 84fL (79-100) Mean Corpuscular Hemoglobin 29pg (25-35) Mean Corpuscular Hemoglobin Concent 34g/dL (31-37) Red Cell Distribution Width 15.2% (11.5-14.5) Platelet Count 147x10^3/uL (140-400) 127x10^3/uL (140-400) Neutrophils (%) (Auto) 90% (31-73) Lymphocytes (%) (Auto) 6% (24-48) Monocytes (%) (Auto) 4% (0-9) Eosinophils (%) (Auto) 0% (0-3) Basophils (%) (Auto) 0% (0-3) Neutrophils # (Auto) 22.1x10^3uL (1.8-7.7) Lymphocytes # (Auto) 1.6x10^3/uL (1.0-4.8) Monocytes # (Auto) 0.9x10^3/uL (0.0-1.1) Eosinophils # (Auto) 0.0x10^3/uL (0.0-0.7) Basophils # (Auto) 0.0x10^3/uL (0.0-0.2) Segmented Neutrophils % 73% (35-66) Band Neutrophils % 21% (0-9) Lymphocytes % 3% (24-48) Monocytes % 3% (0-10) Platelet Estimate Adequate (ADEQUATE) Sodium Level 141mmol/L (136-145) Potassium Level 3.7mmol/L (3.5-5.1) Chloride Level 109mmol/L (98-107) Carbon Dioxide Level 22mmol/L (21-32) Anion Gap 10 (6-14) Blood Urea Nitrogen 36mg/dL (7-20) Creatinine 1.8mg/dL (0.6-1.0) Estimated GFR (Cockcroft-Gault) 27.1 BUN/Creatinine Ratio 20 (6-20) Glucose Level 267mg/dL (70-99) Calcium Level 7.3mg/dL (8.5-10.1) Phosphorus Level 2.5mg/dL (2.6-4.7) Magnesium Level 1.5mg/dL (1.8-2.4) Total Bilirubin 0.6mg/dL (0.2-1.0) Aspartate Amino Transf (AST/SGOT) 2719U/L (15-37) Alanine Aminotransferase (ALT/SGPT) 2277U/L (14-59) Alkaline Phosphatase 64U/L (46-116) Total Protein 4.0g/dL (6.4-8.2) Albumin 1.6g/dL (3.4-5.0) Albumin/Globulin Ratio 0.7 (1.0-1.7) Triglycerides Level 140mg/dL (0-150) O2 Saturation 98% (92-99) Arterial Blood pH 7.43 (7.35-7.45) Arterial Blood pCO2 at Patient Temp 31mmHg (35-46) Arterial Blood pO2 at Patient Temp 118mmHg (65-108) Arterial Blood HCO3 20mmol/L (21-28) Arterial Blood Base Excess -4mmol/L (-3-3) FiO2 30 Prothrombin Time 17.6SEC (11.7-14.0) Prothromb Time International Ratio 1.5 (0.8-1.1) Activated Partial Thromboplast Time 30SEC (24-38) Fibrinogen 596mg/dL (200-440) D-Dimer (Zoraida) 2.95ug/mlFEU (0.00-0.50) Test 01/12/17 17:04 01/13/17 00:23 01/13/17 06:30 01/13/17 06:35 Glucose (Fingerstick) 275mg/dL (70-99) 288mg/dL (70-99) 311mg/dL (70-99) White Blood Count 29.6x10^3/uL (4.0-11.0) Red Blood Count 3.13x10^6/uL (3.50-5.40) Hemoglobin 9.0g/dL (12.0-15.5) Hematocrit 27.1% (36.0-47.0) Mean Corpuscular Volume 87fL (79-100) Mean Corpuscular Hemoglobin 29pg (25-35) Mean Corpuscular Hemoglobin Concent 33g/dL (31-37) Red Cell Distribution Width 15.4% (11.5-14.5) Platelet Count 109x10^3/uL (140-400) Neutrophils (%) (Auto) 90% (31-73) Lymphocytes (%) (Auto) 4% (24-48) Monocytes (%) (Auto) 5% (0-9) Eosinophils (%) (Auto) 0% (0-3) Basophils (%) (Auto) 0% (0-3) Neutrophils # (Auto) 26.6x10^3uL (1.8-7.7) Lymphocytes # (Auto) 1.3x10^3/uL (1.0-4.8) Monocytes # (Auto) 1.6x10^3/uL (0.0-1.1) Eosinophils # (Auto) 0.0x10^3/uL (0.0-0.7) Basophils # (Auto) 0.0x10^3/uL (0.0-0.2) Sodium Level 140mmol/L (136-145) Potassium Level 4.3mmol/L (3.5-5.1) Chloride Level 108mmol/L (98-107) Carbon Dioxide Level 23mmol/L (21-32) Anion Gap 9 (6-14) Blood Urea Nitrogen 40mg/dL (7-20) Creatinine 1.5mg/dL (0.6-1.0) Estimated GFR (Cockcroft-Gault) 33.5 Glucose Level 332mg/dL (70-99) Calcium Level 7.3mg/dL (8.5-10.1) Phosphorus Level 2.3mg/dL (2.6-4.7) Magnesium Level 2.3mg/dL (1.8-2.4) Test 01/13/17 07:35 01/13/17 12:08 O2 Saturation 98% (92-99) Arterial Blood pH 7.43 (7.35-7.45) Arterial Blood pCO2 at Patient Temp 32mmHg (35-46) Arterial Blood pO2 at Patient Temp 128mmHg (65-108) Arterial Blood HCO3 21mmol/L (21-28) Arterial Blood Base Excess -3mmol/L (-3-3) FiO2 30 Glucose (Fingerstick) 246mg/dL (70-99) Laboratory Tests Test 01/12/17 17:04 01/13/17 00:23 01/13/17 06:30 01/13/17 06:35 Glucose (Fingerstick) 275mg/dL (70-99) 288mg/dL (70-99) 311mg/dL (70-99) White Blood Count 29.6x10^3/uL (4.0-11.0) Red Blood Count 3.13x10^6/uL (3.50-5.40) Hemoglobin 9.0g/dL (12.0-15.5) Hematocrit 27.1% (36.0-47.0) Mean Corpuscular Volume 87fL (79-100) Mean Corpuscular Hemoglobin 29pg (25-35) Mean Corpuscular Hemoglobin Concent 33g/dL (31-37) Red Cell Distribution Width 15.4% (11.5-14.5) Platelet Count 109x10^3/uL (140-400) Neutrophils (%) (Auto) 90% (31-73) Lymphocytes (%) (Auto) 4% (24-48) Monocytes (%) (Auto) 5% (0-9) Eosinophils (%) (Auto) 0% (0-3) Basophils (%) (Auto) 0% (0-3) Neutrophils # (Auto) 26.6x10^3uL (1.8-7.7) Lymphocytes # (Auto) 1.3x10^3/uL (1.0-4.8) Monocytes # (Auto) 1.6x10^3/uL (0.0-1.1) Eosinophils # (Auto) 0.0x10^3/uL (0.0-0.7) Basophils # (Auto) 0.0x10^3/uL (0.0-0.2) Sodium Level 140mmol/L (136-145) Potassium Level 4.3mmol/L (3.5-5.1) Chloride Level 108mmol/L (98-107) Carbon Dioxide Level 23mmol/L (21-32) Anion Gap 9 (6-14) Blood Urea Nitrogen 40mg/dL (7-20) Creatinine 1.5mg/dL (0.6-1.0) Estimated GFR (Cockcroft-Gault) 33.5 Glucose Level 332mg/dL (70-99) Calcium Level 7.3mg/dL (8.5-10.1) Phosphorus Level 2.3mg/dL (2.6-4.7) Magnesium Level 2.3mg/dL (1.8-2.4) Test 01/13/17 07:35 01/13/17 12:08 O2 Saturation 98% (92-99) Arterial Blood pH 7.43 (7.35-7.45) Arterial Blood pCO2 at Patient Temp 32mmHg (35-46) Arterial Blood pO2 at Patient Temp 128mmHg (65-108) Arterial Blood HCO3 21mmol/L (21-28) Arterial Blood Base Excess -3mmol/L (-3-3) FiO2 30 Glucose (Fingerstick) 246mg/dL (70-99) Medications Active Scripts Medications Dose Route/Sig Days Date Category Pred Forte (Prednisolone Acetate) 1 Ml Drops.susp 1 Ml OU BID PRN 01/09/17 Reported Visine Allergy Relief Drop (Tetrahydrozoline Hcl/Zn Sulf) 15 Ml Drops 1 Drop OU PRN 01/09/17 Reported Thera Tears (Carboxymethylcellulose Sodium) 15 Ml Drops 1 Drop OU PRN 01/09/17 Reported Jaime-128 (Sodium Chloride) 15 Ml Drops 1 Drop OU PRN 01/09/17 Reported Tramadol Hcl 100 Mg Tbmp.24hr 100 Mg PO Q6H PRN 01/08/17 Reported Tramadol Hcl 50 Mg Tablet 50 Mg PO Q6H PRN 01/08/17 Reported Zyrtec (Cetirizine Hcl) 10 Mg Tablet 10 Mg PO DAILY 01/08/17 Reported Nasacort (Triamcinolone Acetonide) 10.8 Ml [place] 2 [place] NS DAILY 01/08/17 Reported Proair Hfa Inhaler (Albuterol Sulfate) 8.5 Gm Hfa.aer.ad 2 Puff INH QID 01/08/17 Reported Mucinex (Guaifenesin) 600 Mg Tablet.er 600 Mg PO Q8HRS PRN 01/08/17 Reported Levothyroxine Sodium 50 Mcg Tablet 50 Mcg PO DAILYAC 01/08/17 Reported Dyazide 37.5-25 Capsule (Triamterene/Hydrochlorothiazid) 1 Each Capsule 1 Cap PO DAILY 01/08/17 Reported Bystolic (Nebivolol) 5 Mg Tablet 5 Mg PO DAILY 01/08/17 Reported Impression . On PS 16 low VT not ready for weaning or extubation will continue the same cxr reviewed 1. Expected Acute respiratory failure following surgery 2. Abnormal CT of the chest, 3 mm left upper lobe nodule. 3. Pancreatic mass status post exploratory laparotomy, extensive lysis of adhesions, partial colectomy, extended small bowel resection, left nephrectomy, splenectomy, distal pancreatectomy, partial gastrectomy, liver biopsy and ileostomy. 4. Anemia. 5. Acute kidney injury. 6. Asthma. 7. History of hypertension. Plan . 1. Titrate FiO2 to keep O2 saturation 92 2. Continue ventilatory support, abg noted will try trial 3. Pepcid for stress ulcer prophylaxis. 4. Lovenox for DVT prophylaxis. 5. Monitor creatinine very closely. 6. Elevate head of bed. 7. follow surgery input 8. Repeat CXR 9. monitor 3 mm nodule. will need repeat ct in a few months. D/W RN an cristine RT HERMINIA KINGSLEY MD Jan 13, 2017 16:23
[2017-01-13] MEDS: DEXTROSE 50% 25 GM / 50ML DISP.SYRIN. IV ONE (16:45)
[2017-01-13] MEDS: METOPROLOL TARTRATE 5 MG/5 ML VIAL. IVP SCH (18:03)
[2017-01-13] MEDS: PIPERACILLIN/TAZOBACTAM 3.375 GM in IV NORMAL SALINE 50ML 50 ML IV SCH (18:03)
[2017-01-13] MEDS: PROPOFOL 100 ML IV PRN (18:39)
[2017-01-13] MEDS ORDERED: DEXTROSE 70% IV SCH ×11 (22:00)
[2017-01-13] MEDS ORDERED: TOTAL PARENTERAL NUTRITION IV SCH ×11 (22:00)
[2017-01-13] MEDS ORDERED: AMINO ACIDS IV SCH ×11 (22:00)
[2017-01-13] MEDS ORDERED: [UNRECOGNIZED DRUG - OTHER] IV SCH ×11 (22:00)
[2017-01-14] VITALS (24 sets, daily range): BP systolic 93–146; BP diastolic 42–68
[2017-01-14] MEDS: PIPERACILLIN/TAZOBACTAM 3.375 GM in IV NORMAL SALINE 50ML 50 ML IV SCH ×5 (01:10→22:59)
[2017-01-14] MEDS: METOPROLOL TARTRATE 5 MG/5 ML VIAL. IVP SCH ×5 (01:10→23:00)
[2017-01-14] MEDS: INSULIN ASPART 300 UNITS/3 ML INSULN.PEN SQ SCH ×5 (01:13→23:03)
[2017-01-14 04:19] LABS: G-6-PD QUANT 9.8 U/g Hb (4.6-13.5); G6PD HGB 6.3 g/dL (11.1-15.9)
[2017-01-14] MEDS: ALBUTEROL SULFATE 2.5 MG/3 ML NEBU. NEB SCH ×4 (07:19→19:54)
[2017-01-14] MEDS: FENTANYL STANDARD PCA 30 ML IV PRN (07:44)
[2017-01-14 07:53] LABS: BASO # 0.1 x10^3/uL (0.0-0.2); BASO % 1 % (0-3); EOS % 1 % (0-3); HEMATOCRIT 25.9 % (36.0-47.0); HEMOGLOBIN 8.5 g/dL (12.0-15.5); LYMPH # 1.2 x10^3/uL (1.0-4.8); LYMPH % 4 % (24-48); MEAN CORPUSCULAR HEMOGLOBIN 29 pg (25-35); MEAN CORPUSCULAR HGB CONC 33 g/dL (31-37); MEAN CORPUSCULAR VOLUME 88 fL (79-100); MONO % 9 % (0-9); NEUT % 86 % (31-73); PLATELET COUNT 107 x10^3/uL (140-400); RED BLOOD COUNT 2.93 x10^6/uL (3.50-5.40); RED CELL DISTRIBUTION WIDTH 15.5 % (11.5-14.5); WHITE BLOOD COUNT 28.5 x10^3/uL (4.0-11.0)
[2017-01-14 08:08] LABS: CALCIUM 7.4 mg/dL (8.5-10.1); CREATININE 1.2 mg/dL (0.6-1.0); GFR 43.3; MAGNESIUM 2.1 mg/dL (1.8-2.4); PHOSPHORUS 3.1 mg/dL (2.6-4.7); POTASSIUM 4.9 mmol/L (3.5-5.1)
--- NOTE | 2017-01-14 08:45 | PDOC ---
Objective: Objective: Per RN: ~100cc (bilious) from NG each shift, ostomy functioning, some increase in JANICE output. Pulled out NG yesterday, was adjusted. Vital Signs: Vital Signs Date Time Temp Pulse Resp B/P Pulse Ox O2 Delivery O2 Flow Rate FiO2 01/14/17 07:24 85 125/59 01/14/17 07:20 100 Ventilator 01/14/17 07:00 15 01/14/17 04:00 98.9 98.9 Labs: Laboratory Tests Test 01/13/17 12:08 01/13/17 18:02 01/14/17 01:07 01/14/17 07:40 Glucose (Fingerstick) 246mg/dL (70-99) 250mg/dL (70-99) 203mg/dL (70-99) 168mg/dL (70-99) Imaging: KUB 01/13/17 IMPRESSION: The tip of the NG tube is doubled back upon itself at the level of the GE junction. Advancement of the tube is advised. PE: GEN: intubated LUNGS: vent HEART: S1S2 ABD: +ostomy bag w/ dark brown liquid, JPs, NG NEURO/PSYCH: opens eyes A/P: Metastatic pancreatic mass -s/p exp lap, BENITA, partial colectomy, extended small-bowel resection, left nephrectomy, splenectomy, distal pancreatectomy, liver biopsy 01/10; re- exploration 01/11 -intubated in ICU w/ NG, TPN, IV PPI -anemia s/p multiple transfusions --->some drift in Hgb -- Continue supportive care. RED WINSTON Jan 14, 2017 08:45
[2017-01-14] MEDS: FLUTICASONE 50MCG/NASAL SPRAY 16GM BOTTLE. NS SCH (09:00)
[2017-01-14] MEDS: DOCUSATE SODIUM 100 MG CAPSULE. PO SCH ×2 (09:00→21:00)
--- NOTE | 2017-01-14 09:43 | PDOC ---
PROGRESS NOTES Chief Complaint Chief Complaint Pancreatic mass w/obstruction ASSESSMENT AND PLAN: 1. Obstruction: s/p palliative resection on 01/[address] Jenkins; ostomy placed 2. Pancreas CA w/ liver mets: awaiting path confirmation. Dr Mckeon following 3. Anemia: acute blood loss. fairly stable s/p transfusion of PRBC x10, FFP x6, cryo x1, plts x2. slow downward drift now; monitor closely; transfuse for Hgb<7 4. Leukocytosis: unchanged, reactive. Blood cult NGTD. empiric Zosyn 5. Thrombocytopenia: ongoing. appears to be nadiring in 100s. ?infectious vs poss drug rxn 6. Coagulopathy: severe hypofibrinogenemia post op, recovered; monitor. 7. SIRS: 2/2 above 8. Acute respiratory failure: intubated for OR; subsequent ARDS. weaning as per Pulm 9. Nutrition: currently on TPN; NG/PO feeds as per surgery 10. DM: not optimally controlled; titrate levemir while on TPN. ISS 11. Hyponatremia: resolved. 12. FREDIS: improved. cont IVF NS, K repletion cautiously. monitor 13. Prophylaxis: PPI. Lovenox on hold with massive bleed. pt prob high risk for DVTs with malignancy CC time: 40 min Vitals Vitals Vital Signs Date Time Temp Pulse Resp B/P Pulse Ox O2 Delivery O2 Flow Rate FiO2 01/14/17 07:24 85 125/59 01/14/17 07:20 100 Ventilator 01/14/17 07:00 15 01/14/17 04:00 98.9 98.9 Physical Exam General: No acute distress, Other (intubated, sedated) Heart: Normal S1, Normal S2 Lungs: Clear Abdomen: Soft, No tenderness, Other (JANICE serosang, ostomy with brown stool) Extremities: No clubbing Skin: No significant lesion Labs LABS Laboratory Tests Test 01/13/17 12:08 01/13/17 18:02 01/14/17 01:07 01/14/17 07:30 Glucose (Fingerstick) 246mg/dL (70-99) 250mg/dL (70-99) 203mg/dL (70-99) White Blood Count 28.5x10^3/uL (4.0-11.0) Red Blood Count 2.93x10^6/uL (3.50-5.40) Hemoglobin 8.5g/dL (12.0-15.5) Hematocrit 25.9% (36.0-47.0) Mean Corpuscular Volume 88fL (79-100) Mean Corpuscular Hemoglobin 29pg (25-35) Mean Corpuscular Hemoglobin Concent 33g/dL (31-37) Red Cell Distribution Width 15.5% (11.5-14.5) Platelet Count 107x10^3/uL (140-400) Neutrophils (%) (Auto) 86% (31-73) Lymphocytes (%) (Auto) 4% (24-48) Monocytes (%) (Auto) 9% (0-9) Eosinophils (%) (Auto) 1% (0-3) Basophils (%) (Auto) 1% (0-3) Neutrophils # (Auto) 24.5x10^3uL (1.8-7.7) Lymphocytes # (Auto) 1.2x10^3/uL (1.0-4.8) Monocytes # (Auto) 2.5x10^3/uL (0.0-1.1) Eosinophils # (Auto) 0.2x10^3/uL (0.0-0.7) Basophils # (Auto) 0.1x10^3/uL (0.0-0.2) Sodium Level 142mmol/L (136-145) Potassium Level 4.9mmol/L (3.5-5.1) Chloride Level 110mmol/L (98-107) Carbon Dioxide Level 25mmol/L (21-32) Anion Gap 7 (6-14) Blood Urea Nitrogen 35mg/dL (7-20) Creatinine 1.2mg/dL (0.6-1.0) Estimated GFR (Cockcroft-Gault) 43.3 Glucose Level 177mg/dL (70-99) Calcium Level 7.4mg/dL (8.5-10.1) Phosphorus Level 3.1mg/dL (2.6-4.7) Magnesium Level 2.1mg/dL (1.8-2.4) Test 01/14/17 07:40 Glucose (Fingerstick) 168mg/dL (70-99) Review of Systems Review of Systems intub.ed, lightly sedated JAC VILLA MD Jan 14, 2017 09:43
[2017-01-14] MEDS: IV NORMAL SALINE 1000ML BAG 1,000 ML IV SCH ×3 (09:46→23:00)
[2017-01-14] MEDS: CETIRIZINE HCL 10 MG TABLET. PO SCH (09:46)
[2017-01-14] MEDS: PANTOPRAZOLE IV PUSH 40 MG VIAL. IVP SCH (09:46)
[2017-01-14] MEDS: LEVOTHYROXINE SODIUM 25 MCG in IV NORMAL SALINE 50ML 5 ML IVP SCH (09:47)
[2017-01-14] MEDS: CHLORHEXIDINE 0.12% 15 ML MOUTHWASH. MM SCH ×2 (09:47→21:00)
[2017-01-14] MEDS: TPN PER PHARMACY MC PRN (10:28)
--- NOTE | 2017-01-14 11:14 | PDOC ---
Renal-Progress Notes Subjective Notes Notes NONE History of Present Illness Hx of present illness STABLE Vitals Vitals Vital Signs Date Time Temp Pulse Resp B/P Pulse Ox O2 Delivery O2 Flow Rate FiO2 01/14/17 09:32 100 Ventilator 01/14/17 08:15 12 01/14/17 07:24 85 125/59 01/14/17 04:00 98.9 98.9 Weight Weight [ ] I.O. Intake and Output Intake and Output 01/14/17 07:00 Intake Total 4175.88 ml Output Total 2340 ml Balance 1835.88 ml Intake Oral 0 ml IV Total 4175.88 ml Output Urine Total 740 ml Stool Total 310 ml Gastric Drainage Total 350 ml Drainage Total 940 ml Labs Labs Laboratory Tests Test 01/13/17 12:08 01/13/17 18:02 01/14/17 01:07 01/14/17 07:30 Glucose (Fingerstick) 246mg/dL (70-99) 250mg/dL (70-99) 203mg/dL (70-99) White Blood Count 28.5x10^3/uL (4.0-11.0) Red Blood Count 2.93x10^6/uL (3.50-5.40) Hemoglobin 8.5g/dL (12.0-15.5) Hematocrit 25.9% (36.0-47.0) Mean Corpuscular Volume 88fL (79-100) Mean Corpuscular Hemoglobin 29pg (25-35) Mean Corpuscular Hemoglobin Concent 33g/dL (31-37) Red Cell Distribution Width 15.5% (11.5-14.5) Platelet Count 107x10^3/uL (140-400) Neutrophils (%) (Auto) 86% (31-73) Lymphocytes (%) (Auto) 4% (24-48) Monocytes (%) (Auto) 9% (0-9) Eosinophils (%) (Auto) 1% (0-3) Basophils (%) (Auto) 1% (0-3) Neutrophils # (Auto) 24.5x10^3uL (1.8-7.7) Lymphocytes # (Auto) 1.2x10^3/uL (1.0-4.8) Monocytes # (Auto) 2.5x10^3/uL (0.0-1.1) Eosinophils # (Auto) 0.2x10^3/uL (0.0-0.7) Basophils # (Auto) 0.1x10^3/uL (0.0-0.2) Sodium Level 142mmol/L (136-145) Potassium Level 4.9mmol/L (3.5-5.1) Chloride Level 110mmol/L (98-107) Carbon Dioxide Level 25mmol/L (21-32) Anion Gap 7 (6-14) Blood Urea Nitrogen 35mg/dL (7-20) Creatinine 1.2mg/dL (0.6-1.0) Estimated GFR (Cockcroft-Gault) 43.3 Glucose Level 177mg/dL (70-99) Calcium Level 7.4mg/dL (8.5-10.1) Phosphorus Level 3.1mg/dL (2.6-4.7) Magnesium Level 2.1mg/dL (1.8-2.4) Test 01/14/17 07:40 Glucose (Fingerstick) 168mg/dL (70-99) Micro Micro Microbiology 01/10/17 Blood Culture - Preliminary, Resulted NO GROWTH AFTER 3 DAYS Review of Systems Constitutional: yes: no symptom reported Physical Exam General Appearance: no apparent distress Respiratory: decreased breath sounds Heart: S1S2 Abdomen: other (HYPOACTIVE) Extremities: pulses present Assessment Assessment IMP FREDIS BETTER WITH CR DOWN TO 1.2 RESP FAILURE PANCREATIC MASS PALLIATIVE RESECTION LEUCOCYTOSIS ANEMIA PLAN ANTIBIOTICS TPN IVF'S WILL FOLLOW LEIA ISIDRO MD Jan 14, 2017 11:14
[2017-01-14 12:33] LABS: HCO3 ABG 23 mmol/L (21-28); PCO2 ABG 34 mmHg (35-46); PH ABG 7.45 (7.35-7.45); PO2 ABG 118 mmHg (65-108); SAT O2 ABG 98 % (92-99)
[2017-01-14 12:38] LABS: FIO2 ABG 40%
--- NOTE | 2017-01-14 12:48 | PDOC ---
PULMONARY PROGRESS NOTES Subjective pt on trial with PS follow commands Vitals Vital Signs Date Time Temp Pulse Resp B/P Pulse Ox O2 Delivery O2 Flow Rate FiO2 01/14/17 11:45 T-Tube 01/14/17 09:32 100 01/14/17 08:15 12 01/14/17 07:24 85 125/59 01/14/17 04:00 98.9 98.9 General: Alert Lungs: Clear Cardiovascular: S1, S2 Abdomen: Other (dressiing in place) Neuro Exam: Alert Extremities: No Edema Skin: Warm, Dry Labs Laboratory Tests Test 01/12/17 14:32 01/12/17 17:04 01/13/17 00:23 01/13/17 06:30 Platelet Count 127x10^3/uL (140-400) 109x10^3/uL (140-400) Prothrombin Time 17.6SEC (11.7-14.0) Prothromb Time International Ratio 1.5 (0.8-1.1) Activated Partial Thromboplast Time 30SEC (24-38) Fibrinogen 596mg/dL (200-440) D-Dimer (Zoraida) 2.95ug/mlFEU (0.00-0.50) Glucose (Fingerstick) 275mg/dL (70-99) 288mg/dL (70-99) White Blood Count 29.6x10^3/uL (4.0-11.0) Red Blood Count 3.13x10^6/uL (3.50-5.40) Hemoglobin 9.0g/dL (12.0-15.5) Hematocrit 27.1% (36.0-47.0) Mean Corpuscular Volume 87fL (79-100) Mean Corpuscular Hemoglobin 29pg (25-35) Mean Corpuscular Hemoglobin Concent 33g/dL (31-37) Red Cell Distribution Width 15.4% (11.5-14.5) Neutrophils (%) (Auto) 90% (31-73) Lymphocytes (%) (Auto) 4% (24-48) Monocytes (%) (Auto) 5% (0-9) Eosinophils (%) (Auto) 0% (0-3) Basophils (%) (Auto) 0% (0-3) Neutrophils # (Auto) 26.6x10^3uL (1.8-7.7) Lymphocytes # (Auto) 1.3x10^3/uL (1.0-4.8) Monocytes # (Auto) 1.6x10^3/uL (0.0-1.1) Eosinophils # (Auto) 0.0x10^3/uL (0.0-0.7) Basophils # (Auto) 0.0x10^3/uL (0.0-0.2) Sodium Level 140mmol/L (136-145) Potassium Level 4.3mmol/L (3.5-5.1) Chloride Level 108mmol/L (98-107) Carbon Dioxide Level 23mmol/L (21-32) Anion Gap 9 (6-14) Blood Urea Nitrogen 40mg/dL (7-20) Creatinine 1.5mg/dL (0.6-1.0) Estimated GFR (Cockcroft-Gault) 33.5 Glucose Level 332mg/dL (70-99) Calcium Level 7.3mg/dL (8.5-10.1) Phosphorus Level 2.3mg/dL (2.6-4.7) Magnesium Level 2.3mg/dL (1.8-2.4) Test 01/13/17 06:35 01/13/17 07:35 01/13/17 12:08 01/13/17 18:02 Glucose (Fingerstick) 311mg/dL (70-99) 246mg/dL (70-99) 250mg/dL (70-99) O2 Saturation 98% (92-99) Arterial Blood pH 7.43 (7.35-7.45) Arterial Blood pCO2 at Patient Temp 32mmHg (35-46) Arterial Blood pO2 at Patient Temp 128mmHg (65-108) Arterial Blood HCO3 21mmol/L (21-28) Arterial Blood Base Excess -3mmol/L (-3-3) FiO2 30 Test 01/14/17 01:07 01/14/17 07:30 01/14/17 07:40 Glucose (Fingerstick) 203mg/dL (70-99) 168mg/dL (70-99) White Blood Count 28.5x10^3/uL (4.0-11.0) Red Blood Count 2.93x10^6/uL (3.50-5.40) Hemoglobin 8.5g/dL (12.0-15.5) Hematocrit 25.9% (36.0-47.0) Mean Corpuscular Volume 88fL (79-100) Mean Corpuscular Hemoglobin 29pg (25-35) Mean Corpuscular Hemoglobin Concent 33g/dL (31-37) Red Cell Distribution Width 15.5% (11.5-14.5) Platelet Count 107x10^3/uL (140-400) Neutrophils (%) (Auto) 86% (31-73) Lymphocytes (%) (Auto) 4% (24-48) Monocytes (%) (Auto) 9% (0-9) Eosinophils (%) (Auto) 1% (0-3) Basophils (%) (Auto) 1% (0-3) Neutrophils # (Auto) 24.5x10^3uL (1.8-7.7) Lymphocytes # (Auto) 1.2x10^3/uL (1.0-4.8) Monocytes # (Auto) 2.5x10^3/uL (0.0-1.1) Eosinophils # (Auto) 0.2x10^3/uL (0.0-0.7) Basophils # (Auto) 0.1x10^3/uL (0.0-0.2) Sodium Level 142mmol/L (136-145) Potassium Level 4.9mmol/L (3.5-5.1) Chloride Level 110mmol/L (98-107) Carbon Dioxide Level 25mmol/L (21-32) Anion Gap 7 (6-14) Blood Urea Nitrogen 35mg/dL (7-20) Creatinine 1.2mg/dL (0.6-1.0) Estimated GFR (Cockcroft-Gault) 43.3 Glucose Level 177mg/dL (70-99) Calcium Level 7.4mg/dL (8.5-10.1) Phosphorus Level 3.1mg/dL (2.6-4.7) Magnesium Level 2.1mg/dL (1.8-2.4) Laboratory Tests Test 01/13/17 18:02 01/14/17 01:07 01/14/17 07:30 01/14/17 07:40 Glucose (Fingerstick) 250mg/dL (70-99) 203mg/dL (70-99) 168mg/dL (70-99) White Blood Count 28.5x10^3/uL (4.0-11.0) Red Blood Count 2.93x10^6/uL (3.50-5.40) Hemoglobin 8.5g/dL (12.0-15.5) Hematocrit 25.9% (36.0-47.0) Mean Corpuscular Volume 88fL (79-100) Mean Corpuscular Hemoglobin 29pg (25-35) Mean Corpuscular Hemoglobin Concent 33g/dL (31-37) Red Cell Distribution Width 15.5% (11.5-14.5) Platelet Count 107x10^3/uL (140-400) Neutrophils (%) (Auto) 86% (31-73) Lymphocytes (%) (Auto) 4% (24-48) Monocytes (%) (Auto) 9% (0-9) Eosinophils (%) (Auto) 1% (0-3) Basophils (%) (Auto) 1% (0-3) Neutrophils # (Auto) 24.5x10^3uL (1.8-7.7) Lymphocytes # (Auto) 1.2x10^3/uL (1.0-4.8) Monocytes # (Auto) 2.5x10^3/uL (0.0-1.1) Eosinophils # (Auto) 0.2x10^3/uL (0.0-0.7) Basophils # (Auto) 0.1x10^3/uL (0.0-0.2) Sodium Level 142mmol/L (136-145) Potassium Level 4.9mmol/L (3.5-5.1) Chloride Level 110mmol/L (98-107) Carbon Dioxide Level 25mmol/L (21-32) Anion Gap 7 (6-14) Blood Urea Nitrogen 35mg/dL (7-20) Creatinine 1.2mg/dL (0.6-1.0) Estimated GFR (Cockcroft-Gault) 43.3 Glucose Level 177mg/dL (70-99) Calcium Level 7.4mg/dL (8.5-10.1) Phosphorus Level 3.1mg/dL (2.6-4.7) Magnesium Level 2.1mg/dL (1.8-2.4) Medications Active Scripts Medications Dose Route/Sig Days Date Category Pred Forte (Prednisolone Acetate) 1 Ml Drops.susp 1 Ml OU BID PRN 01/09/17 Reported Visine Allergy Relief Drop (Tetrahydrozoline Hcl/Zn Sulf) 15 Ml Drops 1 Drop OU PRN 01/09/17 Reported Thera Tears (Carboxymethylcellulose Sodium) 15 Ml Drops 1 Drop OU PRN 01/09/17 Reported Jaime-128 (Sodium Chloride) 15 Ml Drops 1 Drop OU PRN 01/09/17 Reported Tramadol Hcl 100 Mg Tbmp.24hr 100 Mg PO Q6H PRN 01/08/17 Reported Tramadol Hcl 50 Mg Tablet 50 Mg PO Q6H PRN 01/08/17 Reported Zyrtec (Cetirizine Hcl) 10 Mg Tablet 10 Mg PO DAILY 01/08/17 Reported Nasacort (Triamcinolone Acetonide) 10.8 Ml [place] 2 [place] NS DAILY 01/08/17 Reported Proair Hfa Inhaler (Albuterol Sulfate) 8.5 Gm Hfa.aer.ad 2 Puff INH QID 01/08/17 Reported Mucinex (Guaifenesin) 600 Mg Tablet.er 600 Mg PO Q8HRS PRN 01/08/17 Reported Levothyroxine Sodium 50 Mcg Tablet 50 Mcg PO DAILYAC 01/08/17 Reported Dyazide 37.5-25 Capsule (Triamterene/Hydrochlorothiazid) 1 Each Capsule 1 Cap PO DAILY 01/08/17 Reported Bystolic (Nebivolol) 5 Mg Tablet 5 Mg PO DAILY 01/08/17 Reported Impression . On PS 16 low VT not ready for weaning or extubation will continue the same cxr reviewed 1. Expected Acute respiratory failure following surgery 2. Abnormal CT of the chest, 3 mm left upper lobe nodule. 3. Pancreatic mass status post exploratory laparotomy, extensive lysis of adhesions, partial colectomy, extended small bowel resection, left nephrectomy, splenectomy, distal pancreatectomy, partial gastrectomy, liver biopsy and ileostomy. 4. Anemia. 5. Acute kidney injury. 6. Asthma. 7. History of hypertension. Plan . Pt seen on PS will ask RT to perform a t-tube trial and possibly extubate today at bedside 1. Titrate FiO2 to keep O2 saturation 92 2. Continue ventilatory support, abg noted will try trial 3. Pepcid for stress ulcer prophylaxis. 4. Lovenox for DVT prophylaxis. 5. Monitor creatinine very closely. 6. Elevate head of bed. 7. follow surgery input 8. Repeat CXR 9. monitor 3 mm nodule. will need repeat ct in a few months. D/W RN an d RT CCT 30 min HERMINIA KINGSLEY MD Jan 14, 2017 12:48
--- NOTE | 2017-01-14 13:33 | PDOC ---
SURGICAL PROGRESS NOTE Subjective Pt awake on vent Vital Signs Vital Signs Date Time Temp Pulse Resp B/P Pulse Ox O2 Delivery O2 Flow Rate FiO2 01/14/17 11:45 T-Tube 01/14/17 09:32 100 01/14/17 08:15 12 01/14/17 07:24 85 125/59 01/14/17 04:00 98.9 98.9 I&O Intake and Output 01/14/17 06:59 Intake Total 4175.88 ml Output Total 2230 ml Balance 1945.88 ml Intake Oral 0 ml IV Total 4175.88 ml Output Urine Total 730 ml Stool Total 310 ml Gastric Drainage Total 350 ml Drainage Total 840 ml PATIENT HAS A RDZ: Yes General: Alert, No acute distress Abdomen: Soft, No tenderness, Other (ostomy with browish output, JANICE thin serosang) Labs Laboratory Tests Test 01/12/17 14:32 01/12/17 17:04 01/13/17 00:23 01/13/17 06:30 Platelet Count 127x10^3/uL (140-400) 109x10^3/uL (140-400) Prothrombin Time 17.6SEC (11.7-14.0) Prothromb Time International Ratio 1.5 (0.8-1.1) Activated Partial Thromboplast Time 30SEC (24-38) Fibrinogen 596mg/dL (200-440) D-Dimer (Zoraida) 2.95ug/mlFEU (0.00-0.50) Glucose (Fingerstick) 275mg/dL (70-99) 288mg/dL (70-99) White Blood Count 29.6x10^3/uL (4.0-11.0) Red Blood Count 3.13x10^6/uL (3.50-5.40) Hemoglobin 9.0g/dL (12.0-15.5) Hematocrit 27.1% (36.0-47.0) Mean Corpuscular Volume 87fL (79-100) Mean Corpuscular Hemoglobin 29pg (25-35) Mean Corpuscular Hemoglobin Concent 33g/dL (31-37) Red Cell Distribution Width 15.4% (11.5-14.5) Neutrophils (%) (Auto) 90% (31-73) Lymphocytes (%) (Auto) 4% (24-48) Monocytes (%) (Auto) 5% (0-9) Eosinophils (%) (Auto) 0% (0-3) Basophils (%) (Auto) 0% (0-3) Neutrophils # (Auto) 26.6x10^3uL (1.8-7.7) Lymphocytes # (Auto) 1.3x10^3/uL (1.0-4.8) Monocytes # (Auto) 1.6x10^3/uL (0.0-1.1) Eosinophils # (Auto) 0.0x10^3/uL (0.0-0.7) Basophils # (Auto) 0.0x10^3/uL (0.0-0.2) Sodium Level 140mmol/L (136-145) Potassium Level 4.3mmol/L (3.5-5.1) Chloride Level 108mmol/L (98-107) Carbon Dioxide Level 23mmol/L (21-32) Anion Gap 9 (6-14) Blood Urea Nitrogen 40mg/dL (7-20) Creatinine 1.5mg/dL (0.6-1.0) Estimated GFR (Cockcroft-Gault) 33.5 Glucose Level 332mg/dL (70-99) Calcium Level 7.3mg/dL (8.5-10.1) Phosphorus Level 2.3mg/dL (2.6-4.7) Magnesium Level 2.3mg/dL (1.8-2.4) Test 01/13/17 06:35 01/13/17 07:35 01/13/17 12:08 01/13/17 18:02 Glucose (Fingerstick) 311mg/dL (70-99) 246mg/dL (70-99) 250mg/dL (70-99) O2 Saturation 98% (92-99) Arterial Blood pH 7.43 (7.35-7.45) Arterial Blood pCO2 at Patient Temp 32mmHg (35-46) Arterial Blood pO2 at Patient Temp 128mmHg (65-108) Arterial Blood HCO3 21mmol/L (21-28) Arterial Blood Base Excess -3mmol/L (-3-3) FiO2 30 Test 01/14/17 01:07 01/14/17 07:30 01/14/17 07:40 Glucose (Fingerstick) 203mg/dL (70-99) 168mg/dL (70-99) White Blood Count 28.5x10^3/uL (4.0-11.0) Red Blood Count 2.93x10^6/uL (3.50-5.40) Hemoglobin 8.5g/dL (12.0-15.5) Hematocrit 25.9% (36.0-47.0) Mean Corpuscular Volume 88fL (79-100) Mean Corpuscular Hemoglobin 29pg (25-35) Mean Corpuscular Hemoglobin Concent 33g/dL (31-37) Red Cell Distribution Width 15.5% (11.5-14.5) Platelet Count 107x10^3/uL (140-400) Neutrophils (%) (Auto) 86% (31-73) Lymphocytes (%) (Auto) 4% (24-48) Monocytes (%) (Auto) 9% (0-9) Eosinophils (%) (Auto) 1% (0-3) Basophils (%) (Auto) 1% (0-3) Neutrophils # (Auto) 24.5x10^3uL (1.8-7.7) Lymphocytes # (Auto) 1.2x10^3/uL (1.0-4.8) Monocytes # (Auto) 2.5x10^3/uL (0.0-1.1) Eosinophils # (Auto) 0.2x10^3/uL (0.0-0.7) Basophils # (Auto) 0.1x10^3/uL (0.0-0.2) Sodium Level 142mmol/L (136-145) Potassium Level 4.9mmol/L (3.5-5.1) Chloride Level 110mmol/L (98-107) Carbon Dioxide Level 25mmol/L (21-32) Anion Gap 7 (6-14) Blood Urea Nitrogen 35mg/dL (7-20) Creatinine 1.2mg/dL (0.6-1.0) Estimated GFR (Cockcroft-Gault) 43.3 Glucose Level 177mg/dL (70-99) Calcium Level 7.4mg/dL (8.5-10.1) Phosphorus Level 3.1mg/dL (2.6-4.7) Magnesium Level 2.1mg/dL (1.8-2.4) Laboratory Tests Test 01/13/17 18:02 01/14/17 01:07 01/14/17 07:30 01/14/17 07:40 Glucose (Fingerstick) 250mg/dL (70-99) 203mg/dL (70-99) 168mg/dL (70-99) White Blood Count 28.5x10^3/uL (4.0-11.0) Red Blood Count 2.93x10^6/uL (3.50-5.40) Hemoglobin 8.5g/dL (12.0-15.5) Hematocrit 25.9% (36.0-47.0) Mean Corpuscular Volume 88fL (79-100) Mean Corpuscular Hemoglobin 29pg (25-35) Mean Corpuscular Hemoglobin Concent 33g/dL (31-37) Red Cell Distribution Width 15.5% (11.5-14.5) Platelet Count 107x10^3/uL (140-400) Neutrophils (%) (Auto) 86% (31-73) Lymphocytes (%) (Auto) 4% (24-48) Monocytes (%) (Auto) 9% (0-9) Eosinophils (%) (Auto) 1% (0-3) Basophils (%) (Auto) 1% (0-3) Neutrophils # (Auto) 24.5x10^3uL (1.8-7.7) Lymphocytes # (Auto) 1.2x10^3/uL (1.0-4.8) Monocytes # (Auto) 2.5x10^3/uL (0.0-1.1) Eosinophils # (Auto) 0.2x10^3/uL (0.0-0.7) Basophils # (Auto) 0.1x10^3/uL (0.0-0.2) Sodium Level 142mmol/L (136-145) Potassium Level 4.9mmol/L (3.5-5.1) Chloride Level 110mmol/L (98-107) Carbon Dioxide Level 25mmol/L (21-32) Anion Gap 7 (6-14) Blood Urea Nitrogen 35mg/dL (7-20) Creatinine 1.2mg/dL (0.6-1.0) Estimated GFR (Cockcroft-Gault) 43.3 Glucose Level 177mg/dL (70-99) Calcium Level 7.4mg/dL (8.5-10.1) Phosphorus Level 3.1mg/dL (2.6-4.7) Magnesium Level 2.1mg/dL (1.8-2.4) Problem List Problems Medical Problems: (1) Pancreatic mass Status: Acute Assessment/Plan s/p xlap vent wean per pulm cont supportive care will need exterminator termite TPN Problems: JOSÉ MIGUEL VALERO MD Jan 14, 2017 13:33
[2017-01-14] MEDS: INSULIN DETEMIR 300 UNITS/3 ML INSULN.PEN. SQ SCH (21:41)
[2017-01-14] MEDS ORDERED: TOTAL PARENTERAL NUTRITION IV SCH ×10 (22:00)
[2017-01-14] MEDS ORDERED: AMINO ACIDS IV SCH ×10 (22:00)
[2017-01-14] MEDS ORDERED: [UNRECOGNIZED DRUG - OTHER] IV SCH ×10 (22:00)
[2017-01-14] MEDS ORDERED: DEXTROSE 70% IV SCH ×10 (22:00)
[2017-01-14] MEDS: MORPHINE SULFATE 2 MG/ML DISP.SYRIN. IV PRN (23:00)
[2017-01-15] VITALS (19 sets, daily range): BP systolic 127–161; BP diastolic 46–84
[2017-01-15] MEDS: MORPHINE SULFATE 2 MG/ML DISP.SYRIN. IV PRN (04:00)
[2017-01-15] MEDS: PIPERACILLIN/TAZOBACTAM 3.375 GM in IV NORMAL SALINE 50ML 50 ML IV SCH ×4 (05:25→23:49)
[2017-01-15] MEDS: METOPROLOL TARTRATE 5 MG/5 ML VIAL. IVP SCH ×3 (05:26→18:22)
[2017-01-15] MEDS: INSULIN ASPART 300 UNITS/3 ML INSULN.PEN SQ SCH ×3 (05:48→18:00)
[2017-01-15 06:18] LABS: CALCIUM 7.4 mg/dL (8.5-10.1); CREATININE 1.1 mg/dL (0.6-1.0); GFR 47.9; PHOSPHORUS 3.6 mg/dL (2.6-4.7); POTASSIUM 4.3 mmol/L (3.5-5.1)
[2017-01-15] MEDS: ALBUTEROL SULFATE 2.5 MG/3 ML NEBU. NEB SCH ×4 (07:51→21:13)
[2017-01-15] MEDS: CETIRIZINE HCL 10 MG TABLET. PO SCH (09:00)
[2017-01-15] MEDS: DOCUSATE SODIUM 100 MG CAPSULE. PO SCH ×2 (09:00→20:49)
[2017-01-15] MEDS: CHLORHEXIDINE 0.12% 15 ML MOUTHWASH. MM SCH ×2 (09:00→20:49)
--- NOTE | 2017-01-15 09:29 | PDOC ---
PROGRESS NOTES Chief Complaint Chief Complaint Pancreatic mass w/obstruction ASSESSMENT AND PLAN: 1. Obstruction: s/p palliative resection on 01/[address] Jenkins; ostomy placed 2. Pancreas CA w/ liver mets: awaiting path confirmation. Dr Mckeon following 3. Anemia: acute blood loss. fairly stable s/p transfusion of PRBC x10, FFP x6, cryo x1, plts x2. slow downward drift now; monitor closely; transfuse for Hgb<7 4. Leukocytosis: unchanged, reactive. Blood cult NGTD. empiric Zosyn 5. Thrombocytopenia: ongoing. appears to be nadiring in 100s. ?infectious vs poss drug rxn 6. Coagulopathy: severe hypofibrinogenemia post op, recovered; monitor. 7. SIRS: 2/2 above 8. Acute respiratory failure: intubated for OR; subsequent ARDS. sucessfully extubated yesterday 9. Nutrition: currently on TPN 10. DM: well controlled; levemir while on TPN. ISS 11. Hyponatremia: resolved. 12. FREDIS: reseolved. monitor 13. Prophylaxis: PPI. Lovenox on hold with massive bleed. pt prob high risk for DVTs with malignancy CC time: 30 min Vitals Vitals Vital Signs Date Time Temp Pulse Resp B/P Pulse Ox O2 Delivery O2 Flow Rate FiO2 01/15/17 07:57 97 Nasal Cannula 2.0 01/15/17 06:00 76 27 140/55 01/15/17 04:00 98.9 98.9 Physical Exam General: Alert, No acute distress Heart: Normal S1, Normal S2 Lungs: Clear Abdomen: Soft, No tenderness, Other (ostomy with browish output, JANICE thin serosang) Extremities: No clubbing Skin: No significant lesion Labs LABS Laboratory Tests Test 01/14/17 14:58 01/14/17 18:22 01/14/17 21:36 01/14/17 23:02 Glucose (Fingerstick) 136mg/dL (70-99) 136mg/dL (70-99) 152mg/dL (70-99) 146mg/dL (70-99) Test 01/15/17 05:47 01/15/17 05:48 Glucose (Fingerstick) 111mg/dL (70-99) Sodium Level 143mmol/L (136-145) Potassium Level 4.3mmol/L (3.5-5.1) Chloride Level 110mmol/L (98-107) Carbon Dioxide Level 28mmol/L (21-32) Anion Gap 5 (6-14) Blood Urea Nitrogen 29mg/dL (7-20) Creatinine 1.1mg/dL (0.6-1.0) Estimated GFR (Cockcroft-Gault) 47.9 Glucose Level 120mg/dL (70-99) Calcium Level 7.4mg/dL (8.5-10.1) Phosphorus Level 3.6mg/dL (2.6-4.7) Review of Systems Review of Systems abd discomfort, tolerable. no SOB or CP. asking about surgery JAC VILLA MD Jan 15, 2017 09:29
[2017-01-15] MEDS: FLUTICASONE 50MCG/NASAL SPRAY 16GM BOTTLE. NS SCH (09:44)
[2017-01-15] MEDS: PANTOPRAZOLE IV PUSH 40 MG VIAL. IVP SCH (09:44)
[2017-01-15] MEDS: IV NORMAL SALINE 1000ML BAG 1,000 ML IV SCH (09:45)
[2017-01-15] MEDS: LEVOTHYROXINE SODIUM 25 MCG in IV NORMAL SALINE 50ML 5 ML IVP SCH (09:47)
--- NOTE | 2017-01-15 10:29 | PDOC ---
Subjective: Subjective: Nods when asked about pain. Objective: Objective: D/w RN - extubated yesterday, no GI concerns. Vital Signs: Vital Signs Date Time Temp Pulse Resp B/P Pulse Ox O2 Delivery O2 Flow Rate FiO2 01/15/17 09:41 97 Nasal Cannula 2.0 01/15/17 06:00 76 27 140/55 01/15/17 04:00 98.9 98.9 Labs: Laboratory Tests Test 01/14/17 14:58 01/14/17 18:22 01/14/17 21:36 01/14/17 23:02 Glucose (Fingerstick) 136mg/dL 136mg/dL 152mg/dL 146mg/dL Test 01/15/17 05:47 01/15/17 05:48 Glucose (Fingerstick) 111mg/dL Sodium Level 143mmol/L Potassium Level 4.3mmol/L Chloride Level 110mmol/L Carbon Dioxide Level 28mmol/L Anion Gap 5 Blood Urea Nitrogen 29mg/dL Creatinine 1.1mg/dL Estimated GFR (Cockcroft-Gault) 47.9 Glucose Level 120mg/dL Calcium Level 7.4mg/dL Phosphorus Level 3.6mg/dL PE: GEN: extubated LUNGS: clear anteriorly, nasal cannula HEART: RRR ABD: +ostomy w/ dark brown liquid NEURO/PSYCH: A & O 3 A/P: Metastatic pancreatic mass -s/p exp lap, BENITA, partial colectomy, extended small-bowel resection, left nephrectomy, splenectomy, distal pancreatectomy, liver biopsy 01/10; re- exploration 01/11 -extubated yesterday, has NG, TPN, IV PPI -anemia s/p multiple transfusions --->some drift in Hgb -- Continue supportive care. RED WINSTON Jan 15, 2017 10:29
--- NOTE | 2017-01-15 11:20 | PDOC ---
PROGRESS NOTES Subjective Subjective c/c - f/u of Pancreatic mass Objective Objective Vital Signs Date Time Temp Pulse Resp B/P Pulse Ox O2 Delivery O2 Flow Rate FiO2 01/15/17 09:41 97 Nasal Cannula 2.0 01/15/17 06:00 76 27 140/55 01/15/17 04:00 98.9 98.9 Intake and Output 01/15/17 06:59 Intake Total 3133.92 ml Output Total 3250 ml Balance -116.08 ml Intake Oral 0 ml IV Total 3133.92 ml Output Urine Total 2070 ml Stool Total 300 ml Drainage Total 880 ml Physical Exam Heart: Normal S1, Normal S2 Lungs: Clear to auscultation Assessment Assessment Problems Medical Problems: (1) Pancreatic mass Status: Acute IMPRESSION AND PLAN: 1. 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 The mass is noted to be invading the spleen, stomach and splenic flexure of the colon with associated colonic obstruction. There was also evidence of an 18 mm lesion in the left lobe of the liver concerning for metastatic focus. I also discussed in detail with Dr. Erik Jenkins and in view of colon obstruction caused by the mass, I agreed to proceed with surgery which was done 01/10/2017. All gross disease resected. f/u pathology. 2. CT scan of the chest 01/09/17 : 3 mm nonspecific left upper lobe pulmonary nodule. Attention on follow-up imaging. Bone scan 01/09/17 is neg. CA 19-9 was [id number] on 01/09/17. level. 3. Liver metastasis per CT abdomen. I discussed with Dr. Erik Jenkins. s/p resection of 2 lesions. 4. Post op care in ICU. Pt was extubated. 5. Anemia: acute blood loss. s/p transfusion of PRBC x10, FFP x6, cryo x1, plts x2. monitor closely. Hb 9.0. Comment Review of Relevant I have reviewed the following items [place] (where applicable) has been applied. Labs Laboratory Tests Test 01/13/17 12:08 01/13/17 18:02 01/14/17 01:07 01/14/17 07:30 Glucose (Fingerstick) 246mg/dL (70-99) 250mg/dL (70-99) 203mg/dL (70-99) White Blood Count 28.5x10^3/uL (4.0-11.0) Red Blood Count 2.93x10^6/uL (3.50-5.40) Hemoglobin 8.5g/dL (12.0-15.5) Hematocrit 25.9% (36.0-47.0) Mean Corpuscular Volume 88fL (79-100) Mean Corpuscular Hemoglobin 29pg (25-35) Mean Corpuscular Hemoglobin Concent 33g/dL (31-37) Red Cell Distribution Width 15.5% (11.5-14.5) Platelet Count 107x10^3/uL (140-400) Neutrophils (%) (Auto) 86% (31-73) Lymphocytes (%) (Auto) 4% (24-48) Monocytes (%) (Auto) 9% (0-9) Eosinophils (%) (Auto) 1% (0-3) Basophils (%) (Auto) 1% (0-3) Neutrophils # (Auto) 24.5x10^3uL (1.8-7.7) Lymphocytes # (Auto) 1.2x10^3/uL (1.0-4.8) Monocytes # (Auto) 2.5x10^3/uL (0.0-1.1) Eosinophils # (Auto) 0.2x10^3/uL (0.0-0.7) Basophils # (Auto) 0.1x10^3/uL (0.0-0.2) Sodium Level 142mmol/L (136-145) Potassium Level 4.9mmol/L (3.5-5.1) Chloride Level 110mmol/L (98-107) Carbon Dioxide Level 25mmol/L (21-32) Anion Gap 7 (6-14) Blood Urea Nitrogen 35mg/dL (7-20) Creatinine 1.2mg/dL (0.6-1.0) Estimated GFR (Cockcroft-Gault) 43.3 Glucose Level 177mg/dL (70-99) Calcium Level 7.4mg/dL (8.5-10.1) Phosphorus Level 3.1mg/dL (2.6-4.7) Magnesium Level 2.1mg/dL (1.8-2.4) Test 01/14/17 07:40 01/14/17 14:58 01/14/17 18:22 01/14/17 21:36 Glucose (Fingerstick) 168mg/dL (70-99) 136mg/dL (70-99) 136mg/dL (70-99) 152mg/dL (70-99) Test 01/14/17 23:02 01/15/17 05:47 01/15/17 05:48 Glucose (Fingerstick) 146mg/dL (70-99) 111mg/dL (70-99) Sodium Level 143mmol/L (136-145) Potassium Level 4.3mmol/L (3.5-5.1) Chloride Level 110mmol/L (98-107) Carbon Dioxide Level 28mmol/L (21-32) Anion Gap 5 (6-14) Blood Urea Nitrogen 29mg/dL (7-20) Creatinine 1.1mg/dL (0.6-1.0) Estimated GFR (Cockcroft-Gault) 47.9 Glucose Level 120mg/dL (70-99) Calcium Level 7.4mg/dL (8.5-10.1) Phosphorus Level 3.6mg/dL (2.6-4.7) Laboratory Tests Test 01/14/17 14:58 01/14/17 18:22 01/14/17 21:36 01/14/17 23:02 Glucose (Fingerstick) 136mg/dL (70-99) 136mg/dL (70-99) 152mg/dL (70-99) 146mg/dL (70-99) Test 01/15/17 05:47 01/15/17 05:48 Glucose (Fingerstick) 111mg/dL (70-99) Sodium Level 143mmol/L (136-145) Potassium Level 4.3mmol/L (3.5-5.1) Chloride Level 110mmol/L (98-107) Carbon Dioxide Level 28mmol/L (21-32) Anion Gap 5 (6-14) Blood Urea Nitrogen 29mg/dL (7-20) Creatinine 1.1mg/dL (0.6-1.0) Estimated GFR (Cockcroft-Gault) 47.9 Glucose Level 120mg/dL (70-99) Calcium Level 7.4mg/dL (8.5-10.1) Phosphorus Level 3.6mg/dL (2.6-4.7) Microbiology 01/13/17 Blood Culture - Preliminary, Resulted NO GROWTH AFTER 1 DAY Medications Current Medications Sodium Chloride (Iv Sodium Chloride 0.45%) 1,000 ml @ 80 mls/hr [id number] IV Last administered on 01/08/17 22:17; Start 01/08/17 at 21:03; Stop 01/09/17 at 09: 23; Status DC Ondansetron HCl (Zofran) 4 mg PRN Q6HRS PRN IV NAUSEA/VOMITING Last administered on 01/09/17 15:51; Start 01/08/17 at 21:15; Stop 01/10/17 at 17:41; Status DC Prochlorperazine Edisylate (Compazine) 10 mg PRN Q6HRS PRN IV NAUSEA/VOMITING; Start 01/08/17 at 21:15 Prochlorperazine (Compazine) 25 mg PRN Q12HR PRN MS NAUSEA/VOMITING; Start 01/08 at 21:15 Al Hydroxide/Mg Hydroxide (Mylanta Plus Xs) 30 ml PRN Q3HRS PRN PO HEARTBURN / GAS; Start 01/08/17 at 21:15 Calcium Carbonate/ Glycine (Tums) 500 mg PRN Q3HRS PRN PO UPSET STOMACH; Start 01/08/17 at 21:15; Stop 01/08/17 at 21:20; Status DC Oxycodone HCl (Roxicodone) 5 mg PRN Q3HRS PRN PO BREAKTHROUGH PAIN Last administered on 01/09/17 20:54; Start 01/08/17 at 21:15 Morphine Sulfate 1 mg PRN Q2HR PRN IV PAIN Last administered on 01/10/17 08:51 ; Start 01/08/17 at 21:15; Stop 01/11/17 at 08:13; Status DC Acetaminophen (Tylenol) 650 mg PRN Q6HRS PRN PO MILD PAIN / TEMP; Start at 21:15 Docusate Sodium (Colace) 100 mg BID PO Last administered on 01/11/17 21:38; Start 01/08/17 at 22:00 Magnesium Hydroxide (Milk Of Magnesia) 2,400 mg PRN Q12HR PRN PO CONSTIPATION; Start 01/08/17 at 21:15 Bisacodyl (Dulcolax Supp) 10 mg PRN DAILY PRN MS CONSTIPATION; Start 01/08/17 at 21:15 Enoxaparin Sodium (Lovenox 40mg Syringe) 40 mg Q24H SQ ; Start 01/08/17 at 22:00 ; Stop 01/08/17 at 22:00; Status DC Pantoprazole Sodium (Protonix Vial) 40 mg DAILYAC IVP Last administered on 01/15 09:44; Start 01/09/17 at 07:30 Enoxaparin Sodium 30 mg 30 mg Q24H SQ Last administered on 01/08/17 22:20; Start 01/08/17 at 22:00; Stop 01/09/17 at 09:24; Status DC Cefoxitin Sodium (Mefoxin 2gm Ivpb For Omni) 100 ml @ 200 mls/hr 1X PERIOP IV ; Start 01/09/17 at 08:45; Stop 01/10/17 at 11:49; Status DC Cetirizine HCl (Zyrtec) 10 mg DAILY PO Last administered on 01/14/17 09:46; Start 01/09/17 at 10:30 Guaifenesin (Mucinex) 600 mg PRN Q8HRS PRN PO CONGESTION; Start 01/09/17 at 09: 30 Levothyroxine Sodium (Synthroid) 50 mcg DAILYAC PO Last administered on 10:27; Start 01/09/17 at 10:30; Stop 01/11/17 at 08:19; Status DC Tramadol HCl (Ultram) 50 mg PRN Q6HRS PRN PO PAIN; Start 01/09/17 at 09:30 Non-Formulary Medication 2 puff QID INH ; Start 01/09/17 at 13:00; Status UNV Metoprolol Tartrate (Lopressor) 25 mg BID PO Last administered on 01/11/17 21: 38; Start 01/09/17 at 10:30; Stop 01/13/17 at 14:20; Status DC Fluticasone Propionate 2 spray 2 spray DAILY NS Last administered on 01/09/17 10:28; Start 01/09/17 at 10:30; Stop 01/09/17 at 13:10; Status DC Amino Acids/ Electrolytes/ Dextrose (Clinimix E 4.25%-5% Solution) 1,000 ml @ 80 mls/hr [id number] IV Last administered on 01/10/17 01:00; Start 01/09/17 at 10: 30; Stop 01/11/17 at 21:59; Status DC Enoxaparin Sodium (Lovenox 30mg Syringe) 30 mg Q24H SQ ; Start 01/09/17 at 10:00 ; Stop 01/09/17 at 10:00; Status DC Enoxaparin Sodium (Lovenox 30mg Syringe) 30 mg 1X ONCE SQ ; Start 01/09/17 at 10 :00; Stop 01/09/17 at 10:00; Status DC Enoxaparin Sodium (Lovenox 30mg Syringe) 30 mg Q24H SQ ; Start 01/10/17 at 21:00 ; Stop 01/11/17 at 09:42; Status DC Albuterol Sulfate (Ventolin Neb Soln) 2.5 mg RTQID NEB Last administered on 07:51; Start 01/09/17 at 12:00 Fluticasone Propionate (Flonase) 2 spray DAILY NS Last administered on 09:44; Start 01/09/17 at 13:10 Ondansetron HCl (Zofran) 4 mg PRN Q6HRS PRN IV NAUSEA/VOMITING; Start 01/10/17 at 07:30; Stop 01/10/17 at 18:00; Status DC Fentanyl Citrate (Fentanyl 2ml Vial) 25 mcg PRN Q5MIN PRN IV MILD PAIN; Start 01/10/17 at 07:30; Stop 01/10/17 at 18:00; Status DC Fentanyl Citrate 50 mcg 50 mcg PRN Q5MIN PRN IV MODERATE PAIN; Start 01/10/17 at 07:30; Stop 01/10/17 at 18:00; Status DC Lactated Ringer's (Iv Lactated Ringers) 1,000 ml @ 30 mls/hr Q24H IV ; Start at 07:28; Stop 01/10/17 at 19:27; Status DC Prochlorperazine Edisylate (Compazine) 5 mg PACU PRN PRN IV NAUSEA, MRX1; Start 01/10/17 at 07:30; Stop 01/10/17 at 18:00; Status DC Desflurane (Suprane) 90 ml STK-MED ONCE IH ; Start 01/10/17 at 09:03; Stop at 09:04; Status DC Fentanyl Citrate (Fentanyl 2ml Vial) 100 mcg STK-MED ONCE .ROUTE ; Start at 09:03; Stop 01/10/17 at 09:04; Status DC Rocuronium [place] 50 mg 50 mg STK-MED ONCE .ROUTE ; Start 01/10/17 at 09:03; Stop 01/10/17 at 09:04; Status DC Propofol (Diprivan) 20 ml @ As Directed STK-MED ONCE IV ; Start 01/10/17 at 09:04 ; Stop 01/10/17 at 09:05; Status DC Ondansetron HCl (Zofran) 4 mg STK-MED ONCE .ROUTE ; Start 01/10/17 at 09:04; Stop 01/10/17 at 09:05; Status DC Dexamethasone Sodium Phosphate (Decadron) 20 mg STK-MED ONCE .ROUTE ; Start 01/10 at 09:04; Stop 01/10/17 at 09:05; Status DC Lidocaine HCl (Lidocaine HCl 2% Abboject) 100 mg STK-MED ONCE .ROUTE ; Start 01/10/17 at 09:04; Stop 01/10/17 at 09:05; Status DC Phenylephrine HCl (Rodrigue-Synephrine Inj) 10 mg STK-MED ONCE .ROUTE ; Start at 09:27; Stop 01/10/17 at 09:28; Status DC Fentanyl Citrate (Fentanyl 5ml Vial) 250 mcg STK-MED ONCE .ROUTE ; Start at 10:17; Stop 01/10/17 at 10:18; Status DC Rocuronium [place] 50 mg 50 mg STK-MED ONCE .ROUTE ; Start 01/10/17 at 10:26; Stop 01/10/17 at 10:27; Status DC Albumin Human (Plasmanate) 500 ml @ As Directed STK-MED ONCE IV ; Start at 11:32; Stop 01/10/17 at 11:33; Status DC Lorazepam (Ativan) 2 mg STK-MED ONCE .ROUTE ; Start 01/10/17 at 11:38; Stop at 11:39; Status DC Cellulose 1 each 1 each STK-MED ONCE .ROUTE Last administered on 01/10/17 10:23 ; Start 01/10/17 at 12:09; Stop 01/10/17 at 12:10; Status DC Albumin Human (Plasmanate) 500 ml @ As Directed STK-MED ONCE IV ; Start at 12:14; Stop 01/10/17 at 12:15; Status DC Phenylephrine HCl (Rodrigue-Synephrine Inj) 10 mg STK-MED ONCE .ROUTE ; Start at 12:14; Stop 01/10/17 at 12:15; Status DC Cellulose 1 each STK-MED ONCE .ROUTE Last administered on 01/10/17 10:23; Start 01/10/17 at 12:46; Stop 01/10/17 at 12:47; Status DC Lorazepam (Ativan) 2 mg STK-MED ONCE .ROUTE ; Start 01/10/17 at 12:47; Stop at 12:48; Status DC Phenylephrine HCl (Rodrigue-Synephrine Inj) 10 mg STK-MED ONCE .ROUTE ; Start at 12:55; Stop 01/10/17 at 12:56; Status DC Vasopressin (Vasostrict) 20 unit STK-MED ONCE .ROUTE ; Start 01/10/17 at 12:58; Stop 01/10/17 at 12:59; Status DC Norepinephrine Bitartrate (Levophed Vial) 4 mg STK-MED ONCE IV ; Start 01/10/17 at 13:00; Stop 01/10/17 at 13:01; Status DC Norepinephrine Bitartrate (Levophed Vial) 4 mg STK-MED ONCE IV ; Start 01/10/17 at 13:00; Stop 01/10/17 at 13:01; Status DC Rocuronium [place] (Zemuron) 50 mg STK-MED ONCE .ROUTE ; Start 01/10/17 at 13:30 ; Stop 01/10/17 at 13:31; Status DC Famotidine (Pepcid) 20 mg QHS IVP ; Start 01/10/17 at 21:00; Stop 01/11/17 at 08: 15; Status DC Sodium Chloride 3 ml 3 ml QSHIFT PRN IV AFTER MEDS AND BLOOD DRAWS; Start at 13:45; Stop 01/12/17 at 14:37; Status DC Lactated Ringer's (Iv Lactated Ringers) 1,000 ml @ 100 mls/hr Q10H IV Last administered on 01/12/17 05:17; Start 01/10/17 at 13:43; Stop 01/12/17 at 13:21 ; Status DC Morphine Sulfate 1 mg PRN Q1HR PRN IV PAIN Last administered on 01/15/17 04:00 ; Start 01/10/17 at 13:45 Ondansetron HCl (Zofran) 4 mg PRN Q6HRS PRN IV NAUESA, 1ST CHOICE; Start at 13:45 Cellulose 2 each STK-MED ONCE TP Last administered on 01/10/17 10:23; Start 01/10/17 at 10:23; Stop 01/10/17 at 14:25; Status DC Lorazepam (Ativan) 2 mg STK-MED ONCE .ROUTE ; Start 01/10/17 at 20:59; Stop at 21:00; Status DC Rocuronium [place] 50 mg 50 mg STK-MED ONCE .ROUTE ; Start 01/10/17 at 21:30; Stop 01/10/17 at 21:31; Status DC Cefoxitin Sodium (Mefoxin 2gm Ivpb For Omni) 100 ml @ As Directed STK-MED ONCE IV ; Start 01/10/17 at 21:45; Stop 01/10/17 at 21:46; Status DC Cellulose 1 each STK-MED ONCE .ROUTE Last administered on 01/10/17 21:47; Start 01/10/17 at 21:48; Stop 01/10/17 at 21:49; Status DC Cellulose 2 each STK-MED ONCE TP Last administered on 01/10/17 21:47; Start 01/10/17 at 21:47; Stop 01/10/17 at 22:14; Status DC Sodium Chloride 3 ml 3 ml QSHIFT PRN IV AFTER MEDS AND BLOOD DRAWS; Start at 22:30 Fentanyl Citrate 30 ml @ 0 mls/hr CONT PRN IV PROTOCOL Last administered on 07:44; Start 01/10/17 at 22:30 Propofol (Diprivan) 100 ml @ 0 mls/hr CONT PRN IV PER PROTOCOL Last administered on 01/13/17 18:39; Start 01/10/17 at 22:30 Chlorhexidine Gluconate 15 ml 15 ml BID MM Last administered on 01/14/17 09:47 ; Start 01/11/17 at 09:00 Sodium Chloride 1,000 ml @ 1,000 mls/hr 1X ONCE IV Last administered on 02:30; Start 01/11/17 at 02:30; Stop 01/11/17 at 03:29; Status DC Levothyroxine Sodium 25 mcg/ Sodium Chloride 5 ml @ 100 mls/hr DAILY IVP Last administered on 01/15/17 09:47; Start 01/11/17 at 09:00 Sodium Chloride (Iv Sodium Chloride 0.9% 500ml Bag) 500 ml @ 500 mls/hr 1X ONCE IV Last administered on 01/11/17 09:45; Start 01/11/17 at 09:45; Stop at 10:44; Status DC Heparin Sodium (Porcine) 5,000 unit Q8HRS SQ ; Start 01/11/17 at 14:00; Stop 01/11 at 16:45; Status DC Info 1 each 1 each PRN DAILY PRN MC SEE COMMENTS Last administered on 10:28; Start 01/11/17 at 10:15 Norepinephrine Bitartrate 8 mg/ Sodium Chloride 258 ml @ 0 mls/hr CONT PRN IV SEE I/O RECORD Last administered on 01/11/17 12:58; Start 01/11/17 at 11:15 Lactated Ringer's 500 ml @ 500 mls/hr PRN Q2HRS PRN IV HYPOTENTION; Start 01/11 at 13:15 Sodium Chloride 500 ml @ 500 mls/hr PRN Q2HR PRN IV hypotention; Start at 13:15 Sodium Acetate/ Potassium Acetate/ Potassium Phosphate/ Magnesium Sulfate/ Calcium Gluconate/ Chromium/Copper/ Manganese/Seleni/ Zn/Total Parenteral Nutrition/Amino Acids/Dextrose/ Fat Emulsion Intravenous (Potassium Phosphate/ Calcium Gluconate/ Multitrace-5 Conc/ Tpn - Tpn Flu... 1,512 ml @ 63 mls/hr TPN CONT IV Last administered on 01/11/17 21:39; Start 01/11/17 at 22:00; Stop 01/12/17 at 21:59; Status DC Info 1 each PRN DAILY PRN MC SEE COMMENTS; Start 01/11/17 at 13:45; Status UNV Cefoxitin Sodium 4 gm 4 gm STK-MED ONCE IV ; Start 01/10/17 at 12:00; Stop at 08:16; Status DC Sodium Chloride (Iv Sodium Chloride 0.9% 1000ml Bag) 1,000 ml @ 100 mls/hr Q10H IV Last administered on 01/15/17 09:45; Start 01/12/17 at 13:15 Insulin Aspart (Novolog) 0-7 UNITS TIDWMEALS SQ Last administered on 01/12/17 17:06; Start 01/12/17 at 17:00; Stop 01/13/17 at 00:28; Status DC Dextrose 12.5 gm 12.5 gm PRN Q15MIN PRN IV SEE COMMENTS; Start 01/12/17 at 13: 30 Magnesium Sulfate/ Dextrose 50 ml @ 25 mls/hr 1X ONCE IV Last administered on 01/12/17 14:16; Start 01/12/17 at 14:00; Stop 01/12/17 at 15:59; Status DC Potassium Phosphate 10 mmol/ Sodium Chloride 103.3333 ml @ 51.667 m... 1X ONCE IV Last administered on 01/12/17 14:16; Start 01/12/17 at 14:00; Stop 07/21 at 15:59; Status DC Sodium Acetate/ Potassium Acetate/ Potassium Phosphate/ Magnesium Sulfate/ Calcium Gluconate/ Chromium/Copper/ Manganese/Seleni/ Zn/Total Parenteral Nutrition/Amino Acids/Dextrose/ Fat Emulsion Intravenous (Potassium Phosphate/ Calcium Gluconate/ Multitrace-5 Conc/ Tpn - Tpn Flu... 1,512 ml @ 63 mls/hr TPN CONT IV Last administered on 01/12/17 22:09; Start 01/12/17 at 22:00; Stop 01/13/17 at 21:59; Status DC Darbepoetin Luis (Aranesp) 60 mcg [id number] SQ Last administered on 01/12/17 22 :09; Start 01/12/17 at 21:00 Insulin Aspart 0-7 UNITS Q6HRS SQ Last administered on 01/14/17 07:43; Start 01/13/17 at 00:30 Piperacillin Sod/ Tazobactam Sod 3.375 gm/Sodium Chloride 50 ml @ 100 mls/hr Q8HRS IV Last administered on 01/13/17 12:07; Start 01/13/17 at 12:00; Stop at 12:55; Status DC Sodium Acetate 70 meq/Potassium Acetate 60 meq/ Potassium Phosphate 20 mmol/ Magnesium Sulfate 15 meq/Calcium Gluconate 10 meq/ Multivitamins 10 ml/Chromium / Copper/Manganese/ Seleni/Zn 1 ml/ Insulin Human Regular 15 unit/ Total Parenteral Nutrition/Amino Acids/Dextrose/ Fat Emulsion Intravenous 1,512 ml @ 63 mls/hr TPN CONT IV Last administered on 01/13/17 22:35; Start 01/13/17 at 22:00; Stop 01/14/17 at 21:59; Status DC Piperacillin Sod/ Tazobactam Sod/ Sodium Chloride (Zosyn/Iv Sodium Chloride 0.9 % 50ml) 50 ml @ 100 mls/hr Q6HRS IV Last administered on 01/15/17 05:25; Start 01/13/17 at 18:00 Metoprolol Tartrate (Lopressor) 5 mg Q6HRS IVP Last administered on 01/15/17 05:26; Start 01/13/17 at 18:00 Dextrose (Dextrose 50%-Water Syringe) 25 gm 1X ONCE IV ; Start 01/13/17 at 16: 45; Stop 01/13/17 at 16:46; Status DC Insulin Detemir 15 units 15 units QHS SQ Last administered on 01/14/17 21:41; Start 01/14/17 at 21:00 Sodium Acetate 70 meq/Potassium Acetate 45 meq/ Potassium Phosphate 20 mmol/ Magnesium Sulfate 15 meq/Calcium Gluconate 10 meq/ Multivitamins 10 ml/Chromium / Copper/Manganese/ Seleni/Zn 1 ml/ Total Parenteral Nutrition/Amino Acids/ Dextrose/ Fat Emulsion Intravenous 1,512 ml @ 63 mls/hr TPN CONT IV Last administered on 01/14/17t 21:42; Start 01/14/17 at 22:00; Stop 01/15/17 at 21:59 Sodium Acetate/ Potassium Acetate/ Potassium Phosphate/ Magnesium Sulfate/ Calcium Gluconate/ Multivitamins/ Chromium/Copper/ Manganese/Seleni/ Zn/Total Parenteral Nutrition/Amino Acids/Dextrose/ Fat Emulsion Intravenous (Potassium Phosphate/Calcium Gluconate/ Infuvite Wild... 1,512 ml @ 63 mls/hr TPN CONT IV ; Start 01/15/17 at 22:00; Stop 01/16/17 at 21:59 Active Scripts Active Reported Pred Forte (Prednisolone Acetate) 1 Ml Drops.susp 1 Ml OU BID PRN Visine Allergy Relief Drop (Tetrahydrozoline Hcl/Zn Sulf) 15 Ml Drops 1 Drop OU PRN Thera Tears (Carboxymethylcellulose Sodium) 15 Ml Drops 1 Drop OU PRN Jaime-128 (Sodium Chloride) 15 Ml Drops 1 Drop OU PRN Tramadol Hcl 100 Mg Tbmp.24hr 100 Mg PO Q6H PRN Tramadol Hcl 50 Mg Tablet 50 Mg PO Q6H PRN Zyrtec (Cetirizine Hcl) 10 Mg Tablet 10 Mg PO DAILY Nasacort (Triamcinolone Acetonide) 10.8 Ml [place] 2 [place] NS DAILY Proair Hfa Inhaler (Albuterol Sulfate) 8.5 Gm Hfa.aer.ad 2 Puff INH QID Mucinex (Guaifenesin) 600 Mg Tablet.er 600 Mg PO Q8HRS PRN Levothyroxine Sodium 50 Mcg Tablet 50 Mcg PO DAILYAC Dyazide 37.5-25 Capsule (Triamterene/Hydrochlorothiazid) 1 Each Capsule 1 Cap PO DAILY Bystolic (Nebivolol) 5 Mg Tablet 5 Mg PO DAILY Vitals/I & O Vital Sign - Last 24 Hours 01/14/17 01/14/17 01/14/17 01/14/17 11:45 12:00 12:00 13:00 Temp 98.1 98.1 Pulse 86 94 Resp 22 20 B/P 143/54 146/64 Pulse Ox 100 100 O2 Delivery T-Tube Ventilator T-piece Nasal Cannula O2 Flow Rate 4.0 01/14/17 01/14/17 01/14/17 01/14/17 14:00 14:54 15:00 15:44 Pulse 94 93 88 Resp 20 26 B/P 143/64 143/64 143/68 Pulse Ox 100 100 96 O2 Delivery Nasal Cannula Nasal Cannula Nasal Cannula O2 Flow Rate 4.0 4.0 2.0 01/14/17 01/14/17 01/14/17 01/14/17 16:00 16:00 17:00 18:00 Temp 98.0 98.0 Pulse 90 92 96 Resp 27 30 26 B/P 113/42 128/50 131/56 Pulse Ox 100 100 99 O2 Delivery Nasal Cannula Nasal Cannula Nasal Cannula Nasal Cannula O2 Flow Rate 4.0 4.0 4.0 2.0 01/14/17 01/14/17 01/14/17 01/14/17 18:16 19:00 19:55 20:00 Temp 98.4 98.4 Pulse 97 88 96 Resp 32 24 B/P 131/56 129/47 135/47 Pulse Ox 98 96 98 O2 Delivery Nasal Cannula Nasal Cannula Nasal Cannula O2 Flow Rate 2.0 2.0 2.0 01/14/17 01/14/17 01/14/17 01/14/17 20:00 21:00 22:00 23:00 Pulse 90 95 Resp 26 21 22 B/P 137/64 119/56 Pulse Ox 98 98 99 O2 Delivery Nasal Cannula Nasal Cannula Nasal Cannula Nasal Cannula O2 Flow Rate 2.0 2.0 2.0 2.0 01/14/17 01/14/17 01/15/17 01/15/17 23:00 23:00 00:00 00:00 Temp 99.5 99.5 Pulse 90 87 87 Resp 19 16 B/P 119/56 137/59 133/55 Pulse Ox 99 98 O2 Delivery Nasal Cannula Nasal Cannula Nasal Cannula O2 Flow Rate 2.0 2.0 2.0 01/15/17 01/15/17 01/15/17 01/15/17 01:00 02:00 03:00 04:00 Temp 98.9 98.9 Pulse 89 85 81 81 Resp 20 20 18 20 B/P 127/55 135/55 151/57 150/46 Pulse Ox 97 98 96 96 O2 Delivery Nasal Cannula Nasal Cannula Nasal Cannula Nasal Cannula O2 Flow Rate 2.0 2.0 2.0 2.0 01/15/17 01/15/17 01/15/17 01/15/17 04:00 04:00 04:30 05:00 Pulse 81 Resp 19 22 21 B/P 138/54 Pulse Ox 96 96 96 O2 Delivery Nasal Cannula Nasal Cannula Nasal Cannula Nasal Cannula O2 Flow Rate 2.0 2.0 2.0 2.0 01/15/17 01/15/17 01/15/17 01/15/17 05:26 06:00 07:57 09:41 Pulse 82 76 Resp 27 B/P 138/54 140/55 Pulse Ox 95 97 97 O2 Delivery Nasal Cannula Nasal Cannula Nasal Cannula O2 Flow Rate 2.0 2.0 2.0 Intake and Output 01/14/17 01/14/17 01/15/17 14:59 22:59 06:59 Intake Total 501.92 ml 1642 ml 990 ml Output Total 690 ml 1330 ml 1230 ml Balance -188.08 ml 312 ml -240 ml STEF COOPER MD Jan 15, 2017 11:20
[2017-01-15] MEDS: TPN PER PHARMACY MC PRN (11:25)
--- NOTE | 2017-01-15 11:56 | PDOC ---
SURGICAL PROGRESS NOTE Subjective Pt with c/o mild soreness, appears easily fatigued Vital Signs Vital Signs Date Time Temp Pulse Resp B/P Pulse Ox O2 Delivery O2 Flow Rate FiO2 01/15/17 11:46 96 Nasal Cannula 2.0 01/15/17 10:00 84 26 145/62 01/15/17 08:00 99.1 99.1 I&O Intake and Output 01/15/17 07:00 Intake Total 3133.92 ml Output Total 3120 ml Balance 13.92 ml IV Total 3133.92 ml Output Urine Total 2040 ml Stool Total 300 ml Drainage Total 780 ml General: Alert, Cooperative, No acute distress Abdomen: Soft, No tenderness, Other (ostomy fxn) Labs Laboratory Tests Test 01/13/17 12:08 01/13/17 18:02 01/14/17 01:07 01/14/17 07:30 Glucose (Fingerstick) 246mg/dL (70-99) 250mg/dL (70-99) 203mg/dL (70-99) White Blood Count 28.5x10^3/uL (4.0-11.0) Red Blood Count 2.93x10^6/uL (3.50-5.40) Hemoglobin 8.5g/dL (12.0-15.5) Hematocrit 25.9% (36.0-47.0) Mean Corpuscular Volume 88fL (79-100) Mean Corpuscular Hemoglobin 29pg (25-35) Mean Corpuscular Hemoglobin Concent 33g/dL (31-37) Red Cell Distribution Width 15.5% (11.5-14.5) Platelet Count 107x10^3/uL (140-400) Neutrophils (%) (Auto) 86% (31-73) Lymphocytes (%) (Auto) 4% (24-48) Monocytes (%) (Auto) 9% (0-9) Eosinophils (%) (Auto) 1% (0-3) Basophils (%) (Auto) 1% (0-3) Neutrophils # (Auto) 24.5x10^3uL (1.8-7.7) Lymphocytes # (Auto) 1.2x10^3/uL (1.0-4.8) Monocytes # (Auto) 2.5x10^3/uL (0.0-1.1) Eosinophils # (Auto) 0.2x10^3/uL (0.0-0.7) Basophils # (Auto) 0.1x10^3/uL (0.0-0.2) Sodium Level 142mmol/L (136-145) Potassium Level 4.9mmol/L (3.5-5.1) Chloride Level 110mmol/L (98-107) Carbon Dioxide Level 25mmol/L (21-32) Anion Gap 7 (6-14) Blood Urea Nitrogen 35mg/dL (7-20) Creatinine 1.2mg/dL (0.6-1.0) Estimated GFR (Cockcroft-Gault) 43.3 Glucose Level 177mg/dL (70-99) Calcium Level 7.4mg/dL (8.5-10.1) Phosphorus Level 3.1mg/dL (2.6-4.7) Magnesium Level 2.1mg/dL (1.8-2.4) Test 01/14/17 07:40 01/14/17 14:58 01/14/17 18:22 01/14/17 21:36 Glucose (Fingerstick) 168mg/dL (70-99) 136mg/dL (70-99) 136mg/dL (70-99) 152mg/dL (70-99) Test 01/14/17 23:02 01/15/17 05:47 01/15/17 05:48 Glucose (Fingerstick) 146mg/dL (70-99) 111mg/dL (70-99) Sodium Level 143mmol/L (136-145) Potassium Level 4.3mmol/L (3.5-5.1) Chloride Level 110mmol/L (98-107) Carbon Dioxide Level 28mmol/L (21-32) Anion Gap 5 (6-14) Blood Urea Nitrogen 29mg/dL (7-20) Creatinine 1.1mg/dL (0.6-1.0) Estimated GFR (Cockcroft-Gault) 47.9 Glucose Level 120mg/dL (70-99) Calcium Level 7.4mg/dL (8.5-10.1) Phosphorus Level 3.6mg/dL (2.6-4.7) Laboratory Tests Test 01/14/17 14:58 01/14/17 18:22 01/14/17 21:36 01/14/17 23:02 Glucose (Fingerstick) 136mg/dL (70-99) 136mg/dL (70-99) 152mg/dL (70-99) 146mg/dL (70-99) Test 01/15/17 05:47 01/15/17 05:48 Glucose (Fingerstick) 111mg/dL (70-99) Sodium Level 143mmol/L (136-145) Potassium Level 4.3mmol/L (3.5-5.1) Chloride Level 110mmol/L (98-107) Carbon Dioxide Level 28mmol/L (21-32) Anion Gap 5 (6-14) Blood Urea Nitrogen 29mg/dL (7-20) Creatinine 1.1mg/dL (0.6-1.0) Estimated GFR (Cockcroft-Gault) 47.9 Glucose Level 120mg/dL (70-99) Calcium Level 7.4mg/dL (8.5-10.1) Phosphorus Level 3.6mg/dL (2.6-4.7) Problem List Problems Medical Problems: (1) Pancreatic mass Status: Acute Assessment/Plan s/p palliative resection D/c NGT clears 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
[2017-01-15 12:06] LABS: BASO # 0.1 x10^3/uL (0.0-0.2); BASO % 0 % (0-3); EOS % 2 % (0-3); HEMATOCRIT 25.1 % (36.0-47.0); HEMOGLOBIN 8.2 g/dL (12.0-15.5); LYMPH # 1.2 x10^3/uL (1.0-4.8); LYMPH % 6 % (24-48); MEAN CORPUSCULAR HEMOGLOBIN 29 pg (25-35); MEAN CORPUSCULAR HGB CONC 33 g/dL (31-37); MEAN CORPUSCULAR VOLUME 88 fL (79-100); MONO % 10 % (0-9); NEUT % 82 % (31-73); PLATELET COUNT 130 x10^3/uL (140-400); RED BLOOD COUNT 2.87 x10^6/uL (3.50-5.40); RED CELL DISTRIBUTION WIDTH 16.1 % (11.5-14.5); WHITE BLOOD COUNT 20.7 x10^3/uL (4.0-11.0)
--- NOTE | 2017-01-15 12:22 | PDOC ---
Renal-Progress Notes Subjective Notes Notes NO COMPLAINTS. EXTUBATED History of Present Illness Hx of present illness BETTER Vitals Vitals Vital Signs Date Time Temp Pulse Resp B/P Pulse Ox O2 Delivery O2 Flow Rate FiO2 01/15/17 11:46 96 Nasal Cannula 2.0 01/15/17 11:00 84 30 150/54 01/15/17 08:00 99.1 99.1 Weight Weight [ ] I.O. Intake and Output Intake and Output 01/15/17 06:59 Intake Total 3133.92 ml Output Total 3250 ml Balance -116.08 ml Intake Oral 0 ml IV Total 3133.92 ml Output Urine Total 2070 ml Stool Total 300 ml Drainage Total 880 ml Labs Labs Laboratory Tests Test 01/14/17 14:58 01/14/17 18:22 01/14/17 21:36 01/14/17 23:02 Glucose (Fingerstick) 136mg/dL (70-99) 136mg/dL (70-99) 152mg/dL (70-99) 146mg/dL (70-99) Test 01/15/17 05:47 01/15/17 05:48 Glucose (Fingerstick) 111mg/dL (70-99) White Blood Count 20.7x10^3/uL (4.0-11.0) Red Blood Count 2.87x10^6/uL (3.50-5.40) Hemoglobin 8.2g/dL (12.0-15.5) Hematocrit 25.1% (36.0-47.0) Mean Corpuscular Volume 88fL (79-100) Mean Corpuscular Hemoglobin 29pg (25-35) Mean Corpuscular Hemoglobin Concent 33g/dL (31-37) Red Cell Distribution Width 16.1% (11.5-14.5) Platelet Count 130x10^3/uL (140-400) Neutrophils (%) (Auto) 82% (31-73) Lymphocytes (%) (Auto) 6% (24-48) Monocytes (%) (Auto) 10% (0-9) Eosinophils (%) (Auto) 2% (0-3) Basophils (%) (Auto) 0% (0-3) Neutrophils # (Auto) 16.9x10^3uL (1.8-7.7) Lymphocytes # (Auto) 1.2x10^3/uL (1.0-4.8) Monocytes # (Auto) 2.1x10^3/uL (0.0-1.1) Eosinophils # (Auto) 0.4x10^3/uL (0.0-0.7) Basophils # (Auto) 0.1x10^3/uL (0.0-0.2) Sodium Level 143mmol/L (136-145) Potassium Level 4.3mmol/L (3.5-5.1) Chloride Level 110mmol/L (98-107) Carbon Dioxide Level 28mmol/L (21-32) Anion Gap 5 (6-14) Blood Urea Nitrogen 29mg/dL (7-20) Creatinine 1.1mg/dL (0.6-1.0) Estimated GFR (Cockcroft-Gault) 47.9 Glucose Level 120mg/dL (70-99) Calcium Level 7.4mg/dL (8.5-10.1) Phosphorus Level 3.6mg/dL (2.6-4.7) Micro Micro Microbiology 01/13/17 Blood Culture - Preliminary, Resulted NO GROWTH AFTER 1 DAY Review of Systems Constitutional: yes: no symptom reported Physical Exam General Appearance: no apparent distress Respiratory: decreased breath sounds Heart: S1S2 Abdomen: other (HYPOACTIVE) Extremities: pulses present Assessment Assessment IMP FREDIS BETTER WITH CR DOWN TO 1.2 RESP FAILURE-EXTUBATED PANCREATIC MASS PALLIATIVE RESECTION LEUCOCYTOSIS ANEMIA PLAN ANTIBIOTICS TPN DECREASE IVF'S WILL FOLLOW LEIA ISIDRO MD Jan 15, 2017 12:22
--- NOTE | 2017-01-15 14:55 | PDOC ---
PULMONARY PROGRESS NOTES Subjective extubated 01/14 Vitals Vital Signs Date Time Temp Pulse Resp B/P Pulse Ox O2 Delivery O2 Flow Rate FiO2 01/15/17 14:00 81 28 149/60 94 Nasal Cannula 2.0 01/15/17 12:00 98.4 98.4 General: Alert Lungs: Clear Cardiovascular: S1, S2 Abdomen: Other (dressiing in place) Neuro Exam: Alert Extremities: No Edema Skin: Warm, Dry Labs Laboratory Tests Test 01/13/17 18:02 01/14/17 01:07 01/14/17 07:30 01/14/17 07:40 Glucose (Fingerstick) 250mg/dL (70-99) 203mg/dL (70-99) 168mg/dL (70-99) White Blood Count 28.5x10^3/uL (4.0-11.0) Red Blood Count 2.93x10^6/uL (3.50-5.40) Hemoglobin 8.5g/dL (12.0-15.5) Hematocrit 25.9% (36.0-47.0) Mean Corpuscular Volume 88fL (79-100) Mean Corpuscular Hemoglobin 29pg (25-35) Mean Corpuscular Hemoglobin Concent 33g/dL (31-37) Red Cell Distribution Width 15.5% (11.5-14.5) Platelet Count 107x10^3/uL (140-400) Neutrophils (%) (Auto) 86% (31-73) Lymphocytes (%) (Auto) 4% (24-48) Monocytes (%) (Auto) 9% (0-9) Eosinophils (%) (Auto) 1% (0-3) Basophils (%) (Auto) 1% (0-3) Neutrophils # (Auto) 24.5x10^3uL (1.8-7.7) Lymphocytes # (Auto) 1.2x10^3/uL (1.0-4.8) Monocytes # (Auto) 2.5x10^3/uL (0.0-1.1) Eosinophils # (Auto) 0.2x10^3/uL (0.0-0.7) Basophils # (Auto) 0.1x10^3/uL (0.0-0.2) Sodium Level 142mmol/L (136-145) Potassium Level 4.9mmol/L (3.5-5.1) Chloride Level 110mmol/L (98-107) Carbon Dioxide Level 25mmol/L (21-32) Anion Gap 7 (6-14) Blood Urea Nitrogen 35mg/dL (7-20) Creatinine 1.2mg/dL (0.6-1.0) Estimated GFR (Cockcroft-Gault) 43.3 Glucose Level 177mg/dL (70-99) Calcium Level 7.4mg/dL (8.5-10.1) Phosphorus Level 3.1mg/dL (2.6-4.7) Magnesium Level 2.1mg/dL (1.8-2.4) Test 01/14/17 14:58 01/14/17 18:22 01/14/17 21:36 01/14/17 23:02 Glucose (Fingerstick) 136mg/dL (70-99) 136mg/dL (70-99) 152mg/dL (70-99) 146mg/dL (70-99) Test 01/15/17 05:47 01/15/17 05:48 01/15/17 12:32 Glucose (Fingerstick) 111mg/dL (70-99) 86mg/dL (70-99) White Blood Count 20.7x10^3/uL (4.0-11.0) Red Blood Count 2.87x10^6/uL (3.50-5.40) Hemoglobin 8.2g/dL (12.0-15.5) Hematocrit 25.1% (36.0-47.0) Mean Corpuscular Volume 88fL (79-100) Mean Corpuscular Hemoglobin 29pg (25-35) Mean Corpuscular Hemoglobin Concent 33g/dL (31-37) Red Cell Distribution Width 16.1% (11.5-14.5) Platelet Count 130x10^3/uL (140-400) Neutrophils (%) (Auto) 82% (31-73) Lymphocytes (%) (Auto) 6% (24-48) Monocytes (%) (Auto) 10% (0-9) Eosinophils (%) (Auto) 2% (0-3) Basophils (%) (Auto) 0% (0-3) Neutrophils # (Auto) 16.9x10^3uL (1.8-7.7) Lymphocytes # (Auto) 1.2x10^3/uL (1.0-4.8) Monocytes # (Auto) 2.1x10^3/uL (0.0-1.1) Eosinophils # (Auto) 0.4x10^3/uL (0.0-0.7) Basophils # (Auto) 0.1x10^3/uL (0.0-0.2) Sodium Level 143mmol/L (136-145) Potassium Level 4.3mmol/L (3.5-5.1) Chloride Level 110mmol/L (98-107) Carbon Dioxide Level 28mmol/L (21-32) Anion Gap 5 (6-14) Blood Urea Nitrogen 29mg/dL (7-20) Creatinine 1.1mg/dL (0.6-1.0) Estimated GFR (Cockcroft-Gault) 47.9 Glucose Level 120mg/dL (70-99) Calcium Level 7.4mg/dL (8.5-10.1) Phosphorus Level 3.6mg/dL (2.6-4.7) Laboratory Tests Test 01/14/17 14:58 01/14/17 18:22 01/14/17 21:36 01/14/17 23:02 Glucose (Fingerstick) 136mg/dL (70-99) 136mg/dL (70-99) 152mg/dL (70-99) 146mg/dL (70-99) Test 01/15/17 05:47 01/15/17 05:48 01/15/17 12:32 Glucose (Fingerstick) 111mg/dL (70-99) 86mg/dL (70-99) White Blood Count 20.7x10^3/uL (4.0-11.0) Red Blood Count 2.87x10^6/uL (3.50-5.40) Hemoglobin 8.2g/dL (12.0-15.5) Hematocrit 25.1% (36.0-47.0) Mean Corpuscular Volume 88fL (79-100) Mean Corpuscular Hemoglobin 29pg (25-35) Mean Corpuscular Hemoglobin Concent 33g/dL (31-37) Red Cell Distribution Width 16.1% (11.5-14.5) Platelet Count 130x10^3/uL (140-400) Neutrophils (%) (Auto) 82% (31-73) Lymphocytes (%) (Auto) 6% (24-48) Monocytes (%) (Auto) 10% (0-9) Eosinophils (%) (Auto) 2% (0-3) Basophils (%) (Auto) 0% (0-3) Neutrophils # (Auto) 16.9x10^3uL (1.8-7.7) Lymphocytes # (Auto) 1.2x10^3/uL (1.0-4.8) Monocytes # (Auto) 2.1x10^3/uL (0.0-1.1) Eosinophils # (Auto) 0.4x10^3/uL (0.0-0.7) Basophils # (Auto) 0.1x10^3/uL (0.0-0.2) Sodium Level 143mmol/L (136-145) Potassium Level 4.3mmol/L (3.5-5.1) Chloride Level 110mmol/L (98-107) Carbon Dioxide Level 28mmol/L (21-32) Anion Gap 5 (6-14) Blood Urea Nitrogen 29mg/dL (7-20) Creatinine 1.1mg/dL (0.6-1.0) Estimated GFR (Cockcroft-Gault) 47.9 Glucose Level 120mg/dL (70-99) Calcium Level 7.4mg/dL (8.5-10.1) Phosphorus Level 3.6mg/dL (2.6-4.7) Medications Active Scripts Medications Dose Route/Sig Days Date Category Pred Forte (Prednisolone Acetate) 1 Ml Drops.susp 1 Ml OU BID PRN 01/09/17 Reported Visine Allergy Relief Drop (Tetrahydrozoline Hcl/Zn Sulf) 15 Ml Drops 1 Drop OU PRN 01/09/17 Reported Thera Tears (Carboxymethylcellulose Sodium) 15 Ml Drops 1 Drop OU PRN 01/09/17 Reported Jaime-128 (Sodium Chloride) 15 Ml Drops 1 Drop OU PRN 01/09/17 Reported Tramadol Hcl 100 Mg Tbmp.24hr 100 Mg PO Q6H PRN 01/08/17 Reported Tramadol Hcl 50 Mg Tablet 50 Mg PO Q6H PRN 01/08/17 Reported Zyrtec (Cetirizine Hcl) 10 Mg Tablet 10 Mg PO DAILY 01/08/17 Reported Nasacort (Triamcinolone Acetonide) 10.8 Ml [place] 2 [place] NS DAILY 01/08/17 Reported Proair Hfa Inhaler (Albuterol Sulfate) 8.5 Gm Hfa.aer.ad 2 Puff INH QID 01/08/17 Reported Mucinex (Guaifenesin) 600 Mg Tablet.er 600 Mg PO Q8HRS PRN 01/08/17 Reported Levothyroxine Sodium 50 Mcg Tablet 50 Mcg PO DAILYAC 01/08/17 Reported Dyazide 37.5-25 Capsule (Triamterene/Hydrochlorothiazid) 1 Each Capsule 1 Cap PO DAILY 01/08/17 Reported Bystolic (Nebivolol) 5 Mg Tablet 5 Mg PO DAILY 01/08/17 Reported Impression . extubated 01/14 doing well pt/ot 1. Expected Acute respiratory failure following surgery 2. Abnormal CT of the chest, 3 mm left upper lobe nodule. 3. Pancreatic mass status post exploratory laparotomy, extensive lysis of adhesions, partial colectomy, extended small bowel resection, left nephrectomy, splenectomy, distal pancreatectomy, partial gastrectomy, liver biopsy and ileostomy. 4. Anemia. 5. Acute kidney injury. 6. Asthma. 7. History of hypertension. Plan . Pt seen on PS will ask RT to perform a t-tube trial and possibly extubate today at bedside 1. Titrate FiO2 to keep O2 saturation 92 2. Continue ventilatory support, abg noted will try trial 3. Pepcid for stress ulcer prophylaxis. 4. Lovenox for DVT prophylaxis. 5. Monitor creatinine very closely. 6. Elevate head of bed. 7. follow surgery input 8. Repeat CXR 9. monitor 3 mm nodule. will need repeat ct in a few months. D/W RN an d RT CCT 30 min HERMINIA KINGSLEY MD Jan 15, 2017 14:55
[2017-01-15] MEDS: INSULIN DETEMIR 300 UNITS/3 ML INSULN.PEN. SQ SCH (21:00)
[2017-01-15] MEDS ORDERED: DEXTROSE 70% IV SCH ×10 (22:00)
[2017-01-15] MEDS ORDERED: AMINO ACIDS IV SCH ×10 (22:00)
[2017-01-15] MEDS ORDERED: TOTAL PARENTERAL NUTRITION IV SCH ×10 (22:00)
[2017-01-15] MEDS ORDERED: [UNRECOGNIZED DRUG - OTHER] IV SCH ×10 (22:00)
[2017-01-16] VITALS (7 sets, daily range): BP systolic 138–158; BP diastolic 49–64
[2017-01-16] MEDS: METOPROLOL TARTRATE 5 MG/5 ML VIAL. IVP SCH ×4 (00:12→19:36)
[2017-01-16] MEDS: IV NORMAL SALINE 1000ML BAG 1,000 ML IV SCH ×2 (03:10→21:15)
[2017-01-16 05:35] LABS: CALCIUM 7.9 mg/dL (8.5-10.1); CREATININE 1.1 mg/dL (0.6-1.0); GFR 47.9; POTASSIUM 4.2 mmol/L (3.5-5.1)
[2017-01-16] MEDS: PIPERACILLIN/TAZOBACTAM 3.375 GM in IV NORMAL SALINE 50ML 50 ML IV SCH ×3 (05:52→19:35)
[2017-01-16] MEDS: INSULIN ASPART 300 UNITS/3 ML INSULN.PEN SQ SCH ×5 (06:00→19:39)
[2017-01-16] MEDS: PANTOPRAZOLE IV PUSH 40 MG VIAL. IVP SCH (06:17)
[2017-01-16] MEDS: ALBUTEROL SULFATE 2.5 MG/3 ML NEBU. NEB SCH ×4 (07:06→20:52)
--- NOTE | 2017-01-16 08:58 | PDOC ---
PROGRESS NOTES Subjective Subjective c/c - f/u of Pancreatic cancer Objective Objective Vital Signs Date Time Temp Pulse Resp B/P Pulse Ox O2 Delivery O2 Flow Rate FiO2 01/16/17 07:06 90 Nasal Cannula 2.0 01/16/17 07:00 97.7 87 18 138/52 97.7 Intake and Output 01/16/17 07:00 Intake Total 1718 ml Output Total 3145 ml Balance -1427 ml Intake Oral 150 ml Other 1568 ml Output Urine Total 2015 ml Stool Total 350 ml Drainage Total 780 ml Physical Exam Heart: Normal S1, Normal S2 General: Alert, Oriented X3 Lungs: Clear to auscultation Neuro: Normal gait Psych/Mental Status: Mental status NL Assessment Assessment Problems Medical Problems: (1) Pancreatic mass Status: Acute IMPRESSION AND PLAN: 1. Pancreatic cancer - measuring [address] involving the tail of the pancreas noted on the CAT scan of the abdomen and pelvis done on 01/08/2017 at [facility]. The mass is noted to be invading the spleen, stomach and splenic flexure of the colon with associated colonic obstruction. There was also evidence of an 18 mm lesion in the left lobe of the liver concerning for metastatic focus. I also discussed in detail with Dr. Erik Jenkins and in view of colon obstruction caused by the mass, I agreed to proceed with surgery which was done 01/10/2017. All gross disease resected. f/u pathology. I d/w Dr Decker. 2. CT scan of the chest 01/09/17 : 3 mm nonspecific left upper lobe pulmonary nodule. Attention on follow-up imaging. Bone scan 01/09/17 is neg. CA 19-9 was [id number] on 01/09/17. level. 3. Liver metastasis per CT abdomen. I discussed with Dr. Erik Jenkins. s/p resection of 2 lesions. 4. Post op care in ICU. Pt was extubated. 5. Anemia: monitor cbc. Hb worse at 8.2. Comment Review of Relevant I have reviewed the following items [place] (where applicable) has been applied. Labs Laboratory Tests Test 01/14/17 14:58 01/14/17 18:22 01/14/17 21:36 01/14/17 23:02 Glucose (Fingerstick) 136mg/dL (70-99) 136mg/dL (70-99) 152mg/dL (70-99) 146mg/dL (70-99) Test 01/15/17 05:47 01/15/17 05:48 01/15/17 12:32 01/15/17 18:15 Glucose (Fingerstick) 111mg/dL (70-99) 86mg/dL (70-99) 92mg/dL (70-99) White Blood Count 20.7x10^3/uL (4.0-11.0) Red Blood Count 2.87x10^6/uL (3.50-5.40) Hemoglobin 8.2g/dL (12.0-15.5) Hematocrit 25.1% (36.0-47.0) Mean Corpuscular Volume 88fL (79-100) Mean Corpuscular Hemoglobin 29pg (25-35) Mean Corpuscular Hemoglobin Concent 33g/dL (31-37) Red Cell Distribution Width 16.1% (11.5-14.5) Platelet Count 130x10^3/uL (140-400) Neutrophils (%) (Auto) 82% (31-73) Lymphocytes (%) (Auto) 6% (24-48) Monocytes (%) (Auto) 10% (0-9) Eosinophils (%) (Auto) 2% (0-3) Basophils (%) (Auto) 0% (0-3) Neutrophils # (Auto) 16.9x10^3uL (1.8-7.7) Lymphocytes # (Auto) 1.2x10^3/uL (1.0-4.8) Monocytes # (Auto) 2.1x10^3/uL (0.0-1.1) Eosinophils # (Auto) 0.4x10^3/uL (0.0-0.7) Basophils # (Auto) 0.1x10^3/uL (0.0-0.2) Sodium Level 143mmol/L (136-145) Potassium Level 4.3mmol/L (3.5-5.1) Chloride Level 110mmol/L (98-107) Carbon Dioxide Level 28mmol/L (21-32) Anion Gap 5 (6-14) Blood Urea Nitrogen 29mg/dL (7-20) Creatinine 1.1mg/dL (0.6-1.0) Estimated GFR (Cockcroft-Gault) 47.9 Glucose Level 120mg/dL (70-99) Calcium Level 7.4mg/dL (8.5-10.1) Phosphorus Level 3.6mg/dL (2.6-4.7) Test 01/15/17 23:51 01/16/17 04:00 01/16/17 06:05 01/16/17 07:25 Glucose (Fingerstick) 159mg/dL (70-99) 179mg/dL (70-99) 208mg/dL (70-99) Sodium Level 139mmol/L (136-145) Potassium Level 4.2mmol/L (3.5-5.1) Chloride Level 105mmol/L (98-107) Carbon Dioxide Level 28mmol/L (21-32) Anion Gap 6 (6-14) Blood Urea Nitrogen 25mg/dL (7-20) Creatinine 1.1mg/dL (0.6-1.0) Estimated GFR (Cockcroft-Gault) 47.9 Glucose Level 197mg/dL (70-99) Calcium Level 7.9mg/dL (8.5-10.1) Laboratory Tests Test 01/15/17 12:32 01/15/17 18:15 01/15/17 23:51 01/16/17 04:00 Glucose (Fingerstick) 86mg/dL (70-99) 92mg/dL (70-99) 159mg/dL (70-99) Sodium Level 139mmol/L (136-145) Potassium Level 4.2mmol/L (3.5-5.1) Chloride Level 105mmol/L (98-107) Carbon Dioxide Level 28mmol/L (21-32) Anion Gap 6 (6-14) Blood Urea Nitrogen 25mg/dL (7-20) Creatinine 1.1mg/dL (0.6-1.0) Estimated GFR (Cockcroft-Gault) 47.9 Glucose Level 197mg/dL (70-99) Calcium Level 7.9mg/dL (8.5-10.1) Test 01/16/17 06:05 01/16/17 07:25 Glucose (Fingerstick) 179mg/dL (70-99) 208mg/dL (70-99) Microbiology 01/13/17 Blood Culture - Preliminary, Resulted NO GROWTH AFTER 2 DAYS Medications Current Medications Sodium Chloride (Iv Sodium Chloride 0.45%) 1,000 ml @ 80 mls/hr [id number] IV Last administered on 01/08/17 22:17; Start 01/08/17 at 21:03; Stop 01/09/17 at 09: 23; Status DC Ondansetron HCl (Zofran) 4 mg PRN Q6HRS PRN IV NAUSEA/VOMITING Last administered on 01/09/17 15:51; Start 01/08/17 at 21:15; Stop 01/10/17 at 17:41; Status DC Prochlorperazine Edisylate (Compazine) 10 mg PRN Q6HRS PRN IV NAUSEA/VOMITING; Start 01/08/17 at 21:15 Prochlorperazine (Compazine) 25 mg PRN Q12HR PRN MD NAUSEA/VOMITING; Start 01/08 at 21:15 Al Hydroxide/Mg Hydroxide (Mylanta Plus Xs) 30 ml PRN Q3HRS PRN PO HEARTBURN / GAS; Start 01/08/17 at 21:15 Calcium Carbonate/ Glycine (Tums) 500 mg PRN Q3HRS PRN PO UPSET STOMACH; Start 01/08/17 at 21:15; Stop 01/08/17 at 21:20; Status DC Oxycodone HCl (Roxicodone) 5 mg PRN Q3HRS PRN PO BREAKTHROUGH PAIN Last administered on 01/09/17 20:54; Start 01/08/17 at 21:15 Morphine Sulfate 1 mg PRN Q2HR PRN IV PAIN Last administered on 01/10/17 08:51 ; Start 01/08/17 at 21:15; Stop 01/11/17 at 08:13; Status DC Acetaminophen (Tylenol) 650 mg PRN Q6HRS PRN PO MILD PAIN / TEMP; Start at 21:15 Docusate Sodium (Colace) 100 mg BID PO Last administered on 01/15/17 20:49; Start 01/08/17 at 22:00 Magnesium Hydroxide (Milk Of Magnesia) 2,400 mg PRN Q12HR PRN PO CONSTIPATION; Start 01/08/17 at 21:15 Bisacodyl (Dulcolax Supp) 10 mg PRN DAILY PRN MD CONSTIPATION; Start 01/08/17 at 21:15 Enoxaparin Sodium (Lovenox 40mg Syringe) 40 mg Q24H SQ ; Start 01/08/17 at 22:00 ; Stop 01/08/17 at 22:00; Status DC Pantoprazole Sodium (Protonix Vial) 40 mg DAILYAC IVP Last administered on 01/16 06:17; Start 01/09/17 at 07:30 Enoxaparin Sodium 30 mg 30 mg Q24H SQ Last administered on 01/08/17 22:20; Start 01/08/17 at 22:00; Stop 01/09/17 at 09:24; Status DC Cefoxitin Sodium (Mefoxin 2gm Ivpb For Omni) 100 ml @ 200 mls/hr 1X PERIOP IV ; Start 01/09/17 at 08:45; Stop 01/10/17 at 11:49; Status DC Cetirizine HCl (Zyrtec) 10 mg DAILY PO Last administered on 01/14/17 09:46; Start 01/09/17 at 10:30 Guaifenesin (Mucinex) 600 mg PRN Q8HRS PRN PO CONGESTION; Start 01/09/17 at 09: 30 Levothyroxine Sodium (Synthroid) 50 mcg DAILYAC PO Last administered on 10:27; Start 01/09/17 at 10:30; Stop 01/11/17 at 08:19; Status DC Tramadol HCl (Ultram) 50 mg PRN Q6HRS PRN PO PAIN; Start 01/09/17 at 09:30 Non-Formulary Medication 2 puff QID INH ; Start 01/09/17 at 13:00; Status UNV Metoprolol Tartrate (Lopressor) 25 mg BID PO Last administered on 01/11/17 21: 38; Start 01/09/17 at 10:30; Stop 01/13/17 at 14:20; Status DC Fluticasone Propionate 2 spray 2 spray DAILY NS Last administered on 01/09/17 10:28; Start 01/09/17 at 10:30; Stop 01/09/17 at 13:10; Status DC Amino Acids/ Electrolytes/ Dextrose (Clinimix E 4.25%-5% Solution) 1,000 ml @ 80 mls/hr [id number] IV Last administered on 01/10/17 01:00; Start 01/09/17 at 10: 30; Stop 01/11/17 at 21:59; Status DC Enoxaparin Sodium (Lovenox 30mg Syringe) 30 mg Q24H SQ ; Start 01/09/17 at 10:00 ; Stop 01/09/17 at 10:00; Status DC Enoxaparin Sodium (Lovenox 30mg Syringe) 30 mg 1X ONCE SQ ; Start 01/09/17 at 10 :00; Stop 01/09/17 at 10:00; Status DC Enoxaparin Sodium (Lovenox 30mg Syringe) 30 mg Q24H SQ ; Start 01/10/17 at 21:00 ; Stop 01/11/17 at 09:42; Status DC Albuterol Sulfate (Ventolin Neb Soln) 2.5 mg RTQID NEB Last administered on 07:06; Start 01/09/17 at 12:00 Fluticasone Propionate (Flonase) 2 spray DAILY NS Last administered on 09:44; Start 01/09/17 at 13:10 Ondansetron HCl (Zofran) 4 mg PRN Q6HRS PRN IV NAUSEA/VOMITING; Start 01/10/17 at 07:30; Stop 01/10/17 at 18:00; Status DC Fentanyl Citrate (Fentanyl 2ml Vial) 25 mcg PRN Q5MIN PRN IV MILD PAIN; Start 01/10/17 at 07:30; Stop 01/10/17 at 18:00; Status DC Fentanyl Citrate 50 mcg 50 mcg PRN Q5MIN PRN IV MODERATE PAIN; Start 01/10/17 at 07:30; Stop 01/10/17 at 18:00; Status DC Lactated Ringer's (Iv Lactated Ringers) 1,000 ml @ 30 mls/hr Q24H IV ; Start at 07:28; Stop 01/10/17 at 19:27; Status DC Prochlorperazine Edisylate (Compazine) 5 mg PACU PRN PRN IV NAUSEA, MRX1; Start 01/10/17 at 07:30; Stop 01/10/17 at 18:00; Status DC Desflurane (Suprane) 90 ml STK-MED ONCE IH ; Start 01/10/17 at 09:03; Stop at 09:04; Status DC Fentanyl Citrate (Fentanyl 2ml Vial) 100 mcg STK-MED ONCE .ROUTE ; Start at 09:03; Stop 01/10/17 at 09:04; Status DC Rocuronium [place] 50 mg 50 mg STK-MED ONCE .ROUTE ; Start 01/10/17 at 09:03; Stop 01/10/17 at 09:04; Status DC Propofol (Diprivan) 20 ml @ As Directed STK-MED ONCE IV ; Start 01/10/17 at 09:04 ; Stop 01/10/17 at 09:05; Status DC Ondansetron HCl (Zofran) 4 mg STK-MED ONCE .ROUTE ; Start 01/10/17 at 09:04; Stop 01/10/17 at 09:05; Status DC Dexamethasone Sodium Phosphate (Decadron) 20 mg STK-MED ONCE .ROUTE ; Start 01/10 at 09:04; Stop 01/10/17 at 09:05; Status DC Lidocaine HCl (Lidocaine HCl 2% Abboject) 100 mg STK-MED ONCE .ROUTE ; Start 01/10/17 at 09:04; Stop 01/10/17 at 09:05; Status DC Phenylephrine HCl (Rodrigue-Synephrine Inj) 10 mg STK-MED ONCE .ROUTE ; Start at 09:27; Stop 01/10/17 at 09:28; Status DC Fentanyl Citrate (Fentanyl 5ml Vial) 250 mcg STK-MED ONCE .ROUTE ; Start at 10:17; Stop 01/10/17 at 10:18; Status DC Rocuronium [place] 50 mg 50 mg STK-MED ONCE .ROUTE ; Start 01/10/17 at 10:26; Stop 01/10/17 at 10:27; Status DC Albumin Human (Plasmanate) 500 ml @ As Directed STK-MED ONCE IV ; Start at 11:32; Stop 01/10/17 at 11:33; Status DC Lorazepam (Ativan) 2 mg STK-MED ONCE .ROUTE ; Start 01/10/17 at 11:38; Stop at 11:39; Status DC Cellulose 1 each 1 each STK-MED ONCE .ROUTE Last administered on 01/10/17 10:23 ; Start 01/10/17 at 12:09; Stop 01/10/17 at 12:10; Status DC Albumin Human (Plasmanate) 500 ml @ As Directed STK-MED ONCE IV ; Start at 12:14; Stop 01/10/17 at 12:15; Status DC Phenylephrine HCl (Rodrigue-Synephrine Inj) 10 mg STK-MED ONCE .ROUTE ; Start at 12:14; Stop 01/10/17 at 12:15; Status DC Cellulose 1 each STK-MED ONCE .ROUTE Last administered on 01/10/17 10:23; Start 01/10/17 at 12:46; Stop 01/10/17 at 12:47; Status DC Lorazepam (Ativan) 2 mg STK-MED ONCE .ROUTE ; Start 01/10/17 at 12:47; Stop at 12:48; Status DC Phenylephrine HCl (Rodrigue-Synephrine Inj) 10 mg STK-MED ONCE .ROUTE ; Start at 12:55; Stop 01/10/17 at 12:56; Status DC Vasopressin (Vasostrict) 20 unit STK-MED ONCE .ROUTE ; Start 01/10/17 at 12:58; Stop 01/10/17 at 12:59; Status DC Norepinephrine Bitartrate (Levophed Vial) 4 mg STK-MED ONCE IV ; Start 01/10/17 at 13:00; Stop 01/10/17 at 13:01; Status DC Norepinephrine Bitartrate (Levophed Vial) 4 mg STK-MED ONCE IV ; Start 01/10/17 at 13:00; Stop 01/10/17 at 13:01; Status DC Rocuronium [place] (Zemuron) 50 mg STK-MED ONCE .ROUTE ; Start 01/10/17 at 13:30 ; Stop 01/10/17 at 13:31; Status DC Famotidine (Pepcid) 20 mg QHS IVP ; Start 01/10/17 at 21:00; Stop 01/11/17 at 08: 15; Status DC Sodium Chloride 3 ml 3 ml QSHIFT PRN IV AFTER MEDS AND BLOOD DRAWS; Start at 13:45; Stop 01/12/17 at 14:37; Status DC Lactated Ringer's (Iv Lactated Ringers) 1,000 ml @ 100 mls/hr Q10H IV Last administered on 01/12/17 05:17; Start 01/10/17 at 13:43; Stop 01/12/17 at 13:21 ; Status DC Morphine Sulfate 1 mg PRN Q1HR PRN IV PAIN Last administered on 01/15/17 04:00 ; Start 01/10/17 at 13:45 Ondansetron HCl (Zofran) 4 mg PRN Q6HRS PRN IV NAUESA, 1ST CHOICE Last administered on 01/16/17 00:22; Start 01/10/17 at 13:45 Cellulose 2 each STK-MED ONCE TP Last administered on 01/10/17 10:23; Start 01/10/17 at 10:23; Stop 01/10/17 at 14:25; Status DC Lorazepam (Ativan) 2 mg STK-MED ONCE .ROUTE ; Start 01/10/17 at 20:59; Stop at 21:00; Status DC Rocuronium [place] 50 mg 50 mg STK-MED ONCE .ROUTE ; Start 01/10/17 at 21:30; Stop 01/10/17 at 21:31; Status DC Cefoxitin Sodium (Mefoxin 2gm Ivpb For Omni) 100 ml @ As Directed STK-MED ONCE IV ; Start 01/10/17 at 21:45; Stop 01/10/17 at 21:46; Status DC Cellulose 1 each STK-MED ONCE .ROUTE Last administered on 01/10/17 21:47; Start 01/10/17 at 21:48; Stop 01/10/17 at 21:49; Status DC Cellulose 2 each STK-MED ONCE TP Last administered on 01/10/17 21:47; Start 01/10/17 at 21:47; Stop 01/10/17 at 22:14; Status DC Sodium Chloride 3 ml 3 ml QSHIFT PRN IV AFTER MEDS AND BLOOD DRAWS; Start at 22:30 Fentanyl Citrate 30 ml @ 0 mls/hr CONT PRN IV PROTOCOL Last administered on 07:44; Start 01/10/17 at 22:30 Propofol (Diprivan) 100 ml @ 0 mls/hr CONT PRN IV PER PROTOCOL Last administered on 01/13/17 18:39; Start 01/10/17 at 22:30 Chlorhexidine Gluconate 15 ml 15 ml BID MM Last administered on 01/15/17 20:49 ; Start 01/11/17 at 09:00 Sodium Chloride 1,000 ml @ 1,000 mls/hr 1X ONCE IV Last administered on 02:30; Start 01/11/17 at 02:30; Stop 01/11/17 at 03:29; Status DC Levothyroxine Sodium 25 mcg/ Sodium Chloride 5 ml @ 100 mls/hr DAILY IVP Last administered on 01/15/17 09:47; Start 01/11/17 at 09:00 Sodium Chloride (Iv Sodium Chloride 0.9% 500ml Bag) 500 ml @ 500 mls/hr 1X ONCE IV Last administered on 01/11/17 09:45; Start 01/11/17 at 09:45; Stop at 10:44; Status DC Heparin Sodium (Porcine) 5,000 unit Q8HRS SQ ; Start 01/11/17 at 14:00; Stop 01/11 at 16:45; Status DC Info 1 each 1 each PRN DAILY PRN MC SEE COMMENTS Last administered on 11:25; Start 01/11/17 at 10:15 Norepinephrine Bitartrate 8 mg/ Sodium Chloride 258 ml @ 0 mls/hr CONT PRN IV SEE I/O RECORD Last administered on 01/11/17 12:58; Start 01/11/17 at 11:15 Lactated Ringer's 500 ml @ 500 mls/hr PRN Q2HRS PRN IV HYPOTENTION; Start 01/11 at 13:15 Sodium Chloride 500 ml @ 500 mls/hr PRN Q2HR PRN IV hypotention; Start at 13:15 Sodium Acetate/ Potassium Acetate/ Potassium Phosphate/ Magnesium Sulfate/ Calcium Gluconate/ Chromium/Copper/ Manganese/Seleni/ Zn/Total Parenteral Nutrition/Amino Acids/Dextrose/ Fat Emulsion Intravenous (Potassium Phosphate/ Calcium Gluconate/ Multitrace-5 Conc/ Tpn - Tpn Flu... 1,512 ml @ 63 mls/hr TPN CONT IV Last administered on 01/11/17 21:39; Start 01/11/17 at 22:00; Stop 01/12/17 at 21:59; Status DC Info 1 each PRN DAILY PRN MC SEE COMMENTS; Start 01/11/17 at 13:45; Status UNV Cefoxitin Sodium 4 gm 4 gm STK-MED ONCE IV ; Start 01/10/17 at 12:00; Stop at 08:16; Status DC Sodium Chloride (Iv Sodium Chloride 0.9% 1000ml Bag) 1,000 ml @ 60 mls/hr [id number] IV Last administered on 01/15/17 09:45; Start 01/12/17 at 13:15 Insulin Aspart (Novolog) 0-7 UNITS TIDWMEALS SQ Last administered on 01/12/17 17:06; Start 01/12/17 at 17:00; Stop 01/13/17 at 00:28; Status DC Dextrose 12.5 gm 12.5 gm PRN Q15MIN PRN IV SEE COMMENTS; Start 01/12/17 at 13: 30 Magnesium Sulfate/ Dextrose 50 ml @ 25 mls/hr 1X ONCE IV Last administered on 01/12/17 14:16; Start 01/12/17 at 14:00; Stop 01/12/17 at 15:59; Status DC Potassium Phosphate 10 mmol/ Sodium Chloride 103.3333 ml @ 51.667 m... 1X ONCE IV Last administered on 01/12/17 14:16; Start 01/12/17 at 14:00; Stop 07/21 at 15:59; Status DC Sodium Acetate/ Potassium Acetate/ Potassium Phosphate/ Magnesium Sulfate/ Calcium Gluconate/ Chromium/Copper/ Manganese/Seleni/ Zn/Total Parenteral Nutrition/Amino Acids/Dextrose/ Fat Emulsion Intravenous (Potassium Phosphate/ Calcium Gluconate/ Multitrace-5 Conc/ Tpn - Tpn Flu... 1,512 ml @ 63 mls/hr TPN CONT IV Last administered on 01/12/17 22:09; Start 01/12/17 at 22:00; Stop 01/13/17 at 21:59; Status DC Darbepoetin Luis (Aranesp) 60 mcg [id number] SQ Last administered on 01/12/17 22 :09; Start 01/12/17 at 21:00 Insulin Aspart 0-7 UNITS Q6HRS SQ Last administered on 01/16/17 06:17; Start 01/13/17 at 00:30 Piperacillin Sod/ Tazobactam Sod 3.375 gm/Sodium Chloride 50 ml @ 100 mls/hr Q8HRS IV Last administered on 01/13/17 12:07; Start 01/13/17 at 12:00; Stop at 12:55; Status DC Sodium Acetate 70 meq/Potassium Acetate 60 meq/ Potassium Phosphate 20 mmol/ Magnesium Sulfate 15 meq/Calcium Gluconate 10 meq/ Multivitamins 10 ml/Chromium / Copper/Manganese/ Seleni/Zn 1 ml/ Insulin Human Regular 15 unit/ Total Parenteral Nutrition/Amino Acids/Dextrose/ Fat Emulsion Intravenous 1,512 ml @ 63 mls/hr TPN CONT IV Last administered on 01/13/17 22:35; Start 01/13/17 at 22:00; Stop 01/14/17 at 21:59; Status DC Piperacillin Sod/ Tazobactam Sod/ Sodium Chloride (Zosyn/Iv Sodium Chloride 0.9 % 50ml) 50 ml @ 100 mls/hr Q6HRS IV Last administered on 01/16/17 05:52; Start 01/13/17 at 18:00 Metoprolol Tartrate (Lopressor) 5 mg Q6HRS IVP Last administered on 01/16/17 00:12; Start 01/13/17 at 18:00 Dextrose (Dextrose 50%-Water Syringe) 25 gm 1X ONCE IV ; Start 01/13/17 at 16: 45; Stop 01/13/17 at 16:46; Status DC Insulin Detemir 15 units 15 units QHS SQ Last administered on 01/14/17 21:41; Start 01/14/17 at 21:00 Sodium Acetate 70 meq/Potassium Acetate 45 meq/ Potassium Phosphate 20 mmol/ Magnesium Sulfate 15 meq/Calcium Gluconate 10 meq/ Multivitamins 10 ml/Chromium / Copper/Manganese/ Seleni/Zn 1 ml/ Total Parenteral Nutrition/Amino Acids/ Dextrose/ Fat Emulsion Intravenous 1,512 ml @ 63 mls/hr TPN CONT IV Last administered on 01/14/17 21:42; Start 01/14/17 at 22:00; Stop 01/15/17 at 21:59 ; Status DC Sodium Acetate/ Potassium Acetate/ Potassium Phosphate/ Magnesium Sulfate/ Calcium Gluconate/ Multivitamins/ Chromium/Copper/ Manganese/Seleni/ Zn/Total Parenteral Nutrition/Amino Acids/Dextrose/ Fat Emulsion Intravenous (Potassium Phosphate/Calcium Gluconate/ Infuvite Wild... 1,512 ml @ 63 mls/hr TPN CONT IV Last administered on 01/15/17t 22:22; Start 01/15/17 at 22:00; Stop 01/16/17 at 21:59 Active Scripts Active Reported Pred Forte (Prednisolone Acetate) 1 Ml Drops.susp 1 Ml OU BID PRN Visine Allergy Relief Drop (Tetrahydrozoline Hcl/Zn Sulf) 15 Ml Drops 1 Drop OU PRN Thera Tears (Carboxymethylcellulose Sodium) 15 Ml Drops 1 Drop OU PRN Jaime-128 (Sodium Chloride) 15 Ml Drops 1 Drop OU PRN Tramadol Hcl 100 Mg Tbmp.24hr 100 Mg PO Q6H PRN Tramadol Hcl 50 Mg Tablet 50 Mg PO Q6H PRN Zyrtec (Cetirizine Hcl) 10 Mg Tablet 10 Mg PO DAILY Nasacort (Triamcinolone Acetonide) 10.8 Ml Stroud 2 Stroud NS DAILY Proair Hfa Inhaler (Albuterol Sulfate) 8.5 Gm Hfa.aer.ad 2 Puff INH QID Mucinex (Guaifenesin) 600 Mg Tablet.er 600 Mg PO Q8HRS PRN Levothyroxine Sodium 50 Mcg Tablet 50 Mcg PO DAILYAC Dyazide 37.5-25 Capsule (Triamterene/Hydrochlorothiazid) 1 Each Capsule 1 Cap PO DAILY Bystolic (Nebivolol) 5 Mg Tablet 5 Mg PO DAILY Vitals/I & O Vital Sign - Last 24 Hours 01/15/17 01/15/17 01/15/17 01/15/17 09:00 09:41 10:00 11:00 Pulse 82 84 84 Resp 30 26 30 B/P 151/62 145/62 150/54 Pulse Ox 94 97 95 95 O2 Delivery Nasal Cannula Nasal Cannula Nasal Cannula Nasal Cannula O2 Flow Rate 2.0 2.0 2.0 2.0 01/15/17 01/15/17 01/15/17 01/15/17 11:46 12:00 12:00 12:28 Temp 98.4 98.4 Pulse 75 81 Resp 28 B/P 144/62 144/62 Pulse Ox 96 95 O2 Delivery Nasal Cannula Nasal Cannula Nasal Cannula O2 Flow Rate 2.0 2.0 2.0 01/15/17 01/15/17 01/15/17 01/15/17 13:00 14:00 14:53 15:00 Pulse 80 81 84 Resp 29 28 24 B/P 142/84 149/60 146/60 Pulse Ox 96 94 94 95 O2 Delivery Nasal Cannula Nasal Cannula Nasal Cannula Nasal Cannula O2 Flow Rate 2.0 2.0 2.0 2.0 01/15/17 01/15/17 01/15/17 01/15/17 16:20 18:22 19:00 20:00 Temp 98.1 98.9 98.1 98.9 Pulse 83 83 80 Resp 18 18 B/P 151/54 159/58 161/54 Pulse Ox 94 98 O2 Delivery Room Air Nasal Cannula Nasal Cannula O2 Flow Rate 2.0 2.0 01/15/17 01/15/17 01/16/17 01/16/17 21:13 23:00 00:12 03:00 Temp 98.7 98.3 98.7 98.3 Pulse 86 83 Resp 18 18 B/P 149/56 149/56 147/53 Pulse Ox 97 97 94 O2 Delivery Nasal Cannula Nasal Cannula Nasal Cannula O2 Flow Rate 2.0 2.0 2.0 01/16/17 01/16/17 01/16/17 06:00 07:00 07:06 Temp 97.7 97.7 Pulse 52 87 Resp 18 B/P 149/49 138/52 Pulse Ox 93 90 O2 Delivery Nasal Cannula Nasal Cannula O2 Flow Rate 2.0 2.0 Intake and Output 01/15/17 01/15/17 01/16/17 15:00 23:00 07:00 Intake Total 1718 ml Output Total 1390 ml 445 ml 1310 ml Balance -1390 ml -445 ml 408 ml STEF COOPER MD Jan 16, 2017 08:57
[2017-01-16] MEDS: CHLORHEXIDINE 0.12% 15 ML MOUTHWASH. MM SCH (09:00)
[2017-01-16] MEDS: LEVOTHYROXINE SODIUM 25 MCG in IV NORMAL SALINE 50ML 5 ML IVP SCH (09:00)
[2017-01-16] MEDS: CETIRIZINE HCL 10 MG TABLET. PO SCH (09:00)
[2017-01-16] MEDS: FLUTICASONE 50MCG/NASAL SPRAY 16GM BOTTLE. NS SCH (09:00)
[2017-01-16] MEDS: DOCUSATE SODIUM 100 MG CAPSULE. PO SCH ×2 (09:00→21:15)
--- NOTE | 2017-01-16 11:29 | PDOC ---
Renal-Progress Notes Subjective Notes Notes NONE History of Present Illness Hx of present illness STABLE Vitals Vitals Vital Signs Date Time Temp Pulse Resp B/P Pulse Ox O2 Delivery O2 Flow Rate FiO2 01/16/17 11:00 98.1 83 18 157/50 98 Nasal Cannula 2.0 98.1 Weight Weight [ ] I.O. Intake and Output Intake and Output 01/16/17 06:59 Intake Total 1718 ml Output Total 3145 ml Balance -1427 ml Intake Oral 150 ml Other 1568 ml Output Urine Total 2015 ml Stool Total 350 ml Drainage Total 780 ml Labs Labs Laboratory Tests Test 01/15/17 12:32 01/15/17 18:15 01/15/17 23:51 01/16/17 04:00 Glucose (Fingerstick) 86mg/dL (70-99) 92mg/dL (70-99) 159mg/dL (70-99) Sodium Level 139mmol/L (136-145) Potassium Level 4.2mmol/L (3.5-5.1) Chloride Level 105mmol/L (98-107) Carbon Dioxide Level 28mmol/L (21-32) Anion Gap 6 (6-14) Blood Urea Nitrogen 25mg/dL (7-20) Creatinine 1.1mg/dL (0.6-1.0) Estimated GFR (Cockcroft-Gault) 47.9 Glucose Level 197mg/dL (70-99) Calcium Level 7.9mg/dL (8.5-10.1) Test 01/16/17 06:05 01/16/17 07:25 Glucose (Fingerstick) 179mg/dL (70-99) 208mg/dL (70-99) Micro Micro Microbiology 01/13/17 Blood Culture - Preliminary, Resulted NO GROWTH AFTER 2 DAYS Review of Systems Constitutional: yes: no symptom reported Physical Exam General Appearance: no apparent distress Respiratory: decreased breath sounds Heart: S1S2 Abdomen: other (HYPOACTIVE) Extremities: pulses present Assessment Assessment IMP FREDIS RESOLVED RESP FAILURE-EXTUBATED PANCREATIC MASS PALLIATIVE RESECTION LEUCOCYTOSIS ANEMIA PLAN ANTIBIOTICS TPN STABLE WILL SIGN OFF PLEASE CALL IF NEEDED LEIA ISIDRO MD Jan 16, 2017 11:29
--- NOTE | 2017-01-16 11:44 | PDOC ---
PROGRESS NOTES Chief Complaint Chief Complaint Pancreatic mass w/obstruction s/p palliative resection on 01/[address] Jenkins Acute blood loss Anemia: acute blood loss. Leukocytosis Thrombocytopenia Coagulopathy SIRS DM FREDIS HTN asthma Vitals Vitals Vital Signs Date Time Temp Pulse Resp B/P Pulse Ox O2 Delivery O2 Flow Rate FiO2 01/16/17 11:00 98.1 83 18 157/50 98 Nasal Cannula 2.0 98.1 Physical Exam General: Alert, Oriented X3, Cooperative, No acute distress, Other (R central line in place. ) Heart: Regular rate, Normal S1, Normal S2 Lungs: Clear, Other (equal chest rise bilaterally. negative chest retractions) Abdomen: Soft, Other (ventral dressing clean, dry, and intact. JANICE drain in place. ) Extremities: No clubbing, No cyanosis, No edema Skin: No rashes, No significant lesion Labs LABS Laboratory Tests Test 01/15/17 12:32 01/15/17 18:15 01/15/17 23:51 01/16/17 04:00 Glucose (Fingerstick) 86mg/dL (70-99) 92mg/dL (70-99) 159mg/dL (70-99) Sodium Level 139mmol/L (136-145) Potassium Level 4.2mmol/L (3.5-5.1) Chloride Level 105mmol/L (98-107) Carbon Dioxide Level 28mmol/L (21-32) Anion Gap 6 (6-14) Blood Urea Nitrogen 25mg/dL (7-20) Creatinine 1.1mg/dL (0.6-1.0) Estimated GFR (Cockcroft-Gault) 47.9 Glucose Level 197mg/dL (70-99) Calcium Level 7.9mg/dL (8.5-10.1) Test 01/16/17 06:05 01/16/17 07:25 Glucose (Fingerstick) 179mg/dL (70-99) 208mg/dL (70-99) Review of Systems Review of Systems (+) abdominal pain to the ostomy site (+) generalized weakness. Denies cheat pain, sob, dizziness/lightheadedness, headache, n/v/d, or fever/ chills. Assessment and Plan Assessmemt and Plan Problems Medical Problems: (1) Pancreatic mass Status: Acute ASSESSMENT: 1. s/p palliative resection on 01/[address] Jenkins; ostomy in placed 2. Pancreas CA w/ liver mets: awaiting path confirmation. Dr Mckeon following 3. Anemia: acute blood loss. fairly stable s/p transfusion of PRBC x10, FFP x6, cryo x1, plts x2. 4. Leukocytosis: unchanged, reactive. Blood cult NGTD. 5. Thrombocytopenia: ongoing. appears to be nadiring in 100s. ?infectious vs poss drug rxn 6. Coagulopathy: severe hypofibrinogenemia post op, recovered; monitor. 7. SIRS: 2/2 above 8. Acute respiratory failure: intubated for OR; subsequent ARDS. sucessfully extubated. 9. Nutrition: currently on TPN 10. DM 11. FREDIS: resolved. monitor 13. Prophylaxis: PPI. Lovenox on hold with massive bleed. pt prob high risk for DVTs with malignancy Plan: 1.) continue wound care 2.) continue TPN 3.) SSI with glucose monitoring 4.) continue zosyn for empiric coverage 5.) appreciate subspecialty input 6.) recheck AM labs; monitor H&H, transfuse for Hgb<7 7.) PT/OT 8.) consult child welfare social worker for SNU evaluation 9.) GI ppx: pepcid. DVT ppx: SCDs. hold lovenox due to coagulopathic Problems: Comment Review of Relevant I have reviewed the following items [place] (where applicable) has been applied. Labs Laboratory Tests Test 01/14/17 14:58 01/14/17 18:22 01/14/17 21:36 01/14/17 23:02 Glucose (Fingerstick) 136mg/dL (70-99) 136mg/dL (70-99) 152mg/dL (70-99) 146mg/dL (70-99) Test 01/15/17 05:47 01/15/17 05:48 01/15/17 12:32 01/15/17 18:15 Glucose (Fingerstick) 111mg/dL (70-99) 86mg/dL (70-99) 92mg/dL (70-99) White Blood Count 20.7x10^3/uL (4.0-11.0) Red Blood Count 2.87x10^6/uL (3.50-5.40) Hemoglobin 8.2g/dL (12.0-15.5) Hematocrit 25.1% (36.0-47.0) Mean Corpuscular Volume 88fL (79-100) Mean Corpuscular Hemoglobin 29pg (25-35) Mean Corpuscular Hemoglobin Concent 33g/dL (31-37) Red Cell Distribution Width 16.1% (11.5-14.5) Platelet Count 130x10^3/uL (140-400) Neutrophils (%) (Auto) 82% (31-73) Lymphocytes (%) (Auto) 6% (24-48) Monocytes (%) (Auto) 10% (0-9) Eosinophils (%) (Auto) 2% (0-3) Basophils (%) (Auto) 0% (0-3) Neutrophils # (Auto) 16.9x10^3uL (1.8-7.7) Lymphocytes # (Auto) 1.2x10^3/uL (1.0-4.8) Monocytes # (Auto) 2.1x10^3/uL (0.0-1.1) Eosinophils # (Auto) 0.4x10^3/uL (0.0-0.7) Basophils # (Auto) 0.1x10^3/uL (0.0-0.2) Sodium Level 143mmol/L (136-145) Potassium Level 4.3mmol/L (3.5-5.1) Chloride Level 110mmol/L (98-107) Carbon Dioxide Level 28mmol/L (21-32) Anion Gap 5 (6-14) Blood Urea Nitrogen 29mg/dL (7-20) Creatinine 1.1mg/dL (0.6-1.0) Estimated GFR (Cockcroft-Gault) 47.9 Glucose Level 120mg/dL (70-99) Calcium Level 7.4mg/dL (8.5-10.1) Phosphorus Level 3.6mg/dL (2.6-4.7) Test 01/15/17 23:51 01/16/17 04:00 01/16/17 06:05 01/16/17 07:25 Glucose (Fingerstick) 159mg/dL (70-99) 179mg/dL (70-99) 208mg/dL (70-99) Sodium Level 139mmol/L (136-145) Potassium Level 4.2mmol/L (3.5-5.1) Chloride Level 105mmol/L (98-107) Carbon Dioxide Level 28mmol/L (21-32) Anion Gap 6 (6-14) Blood Urea Nitrogen 25mg/dL (7-20) Creatinine 1.1mg/dL (0.6-1.0) Estimated GFR (Cockcroft-Gault) 47.9 Glucose Level 197mg/dL (70-99) Calcium Level 7.9mg/dL (8.5-10.1) Laboratory Tests Test 01/15/17 12:32 01/15/17 18:15 01/15/17 23:51 01/16/17 04:00 Glucose (Fingerstick) 86mg/dL (70-99) 92mg/dL (70-99) 159mg/dL (70-99) Sodium Level 139mmol/L (136-145) Potassium Level 4.2mmol/L (3.5-5.1) Chloride Level 105mmol/L (98-107) Carbon Dioxide Level 28mmol/L (21-32) Anion Gap 6 (6-14) Blood Urea Nitrogen 25mg/dL (7-20) Creatinine 1.1mg/dL (0.6-1.0) Estimated GFR (Cockcroft-Gault) 47.9 Glucose Level 197mg/dL (70-99) Calcium Level 7.9mg/dL (8.5-10.1) Test 01/16/17 06:05 01/16/17 07:25 Glucose (Fingerstick) 179mg/dL (70-99) 208mg/dL (70-99) Microbiology 01/13/17 Blood Culture - Preliminary, Resulted NO GROWTH AFTER 2 DAYS Medications Current Medications Sodium Chloride (Iv Sodium Chloride 0.45%) 1,000 ml @ 80 mls/hr [id number] IV Last administered on 01/08/17 22:17; Start 01/08/17 at 21:03; Stop 01/09/17 at 09: 23; Status DC Ondansetron HCl (Zofran) 4 mg PRN Q6HRS PRN IV NAUSEA/VOMITING Last administered on 01/09/17 15:51; Start 01/08/17 at 21:15; Stop 01/10/17 at 17:41; Status DC Prochlorperazine Edisylate (Compazine) 10 mg PRN Q6HRS PRN IV NAUSEA/VOMITING; Start 01/08/17 at 21:15 Prochlorperazine (Compazine) 25 mg PRN Q12HR PRN AL NAUSEA/VOMITING; Start 01/08 at 21:15 Al Hydroxide/Mg Hydroxide (Mylanta Plus Xs) 30 ml PRN Q3HRS PRN PO HEARTBURN / GAS; Start 01/08/17 at 21:15 Calcium Carbonate/ Glycine (Tums) 500 mg PRN Q3HRS PRN PO UPSET STOMACH; Start 01/08/17 at 21:15; Stop 01/08/17 at 21:20; Status DC Oxycodone HCl (Roxicodone) 5 mg PRN Q3HRS PRN PO BREAKTHROUGH PAIN Last administered on 01/09/17 20:54; Start 01/08/17 at 21:15 Morphine Sulfate 1 mg PRN Q2HR PRN IV PAIN Last administered on 01/10/17 08:51 ; Start 01/08/17 at 21:15; Stop 01/11/17 at 08:13; Status DC Acetaminophen (Tylenol) 650 mg PRN Q6HRS PRN PO MILD PAIN / TEMP; Start at 21:15 Docusate Sodium (Colace) 100 mg BID PO Last administered on 01/16/17 09:00; Start 01/08/17 at 22:00 Magnesium Hydroxide (Milk Of Magnesia) 2,400 mg PRN Q12HR PRN PO CONSTIPATION; Start 01/08/17 at 21:15 Bisacodyl (Dulcolax Supp) 10 mg PRN DAILY PRN AL CONSTIPATION; Start 01/08/17 at 21:15 Enoxaparin Sodium (Lovenox 40mg Syringe) 40 mg Q24H SQ ; Start 01/08/17 at 22:00 ; Stop 01/08/17 at 22:00; Status DC Pantoprazole Sodium (Protonix Vial) 40 mg DAILYAC IVP Last administered on 01/16 06:17; Start 01/09/17 at 07:30 Enoxaparin Sodium 30 mg 30 mg Q24H SQ Last administered on 01/08/17 22:20; Start 01/08/17 at 22:00; Stop 01/09/17 at 09:24; Status DC Cefoxitin Sodium (Mefoxin 2gm Ivpb For Omni) 100 ml @ 200 mls/hr 1X PERIOP IV ; Start 01/09/17 at 08:45; Stop 01/10/17 at 11:49; Status DC Cetirizine HCl (Zyrtec) 10 mg DAILY PO Last administered on 01/16/17 09:00; Start 01/09/17 at 10:30 Guaifenesin (Mucinex) 600 mg PRN Q8HRS PRN PO CONGESTION; Start 01/09/17 at 09: 30 Levothyroxine Sodium (Synthroid) 50 mcg DAILYAC PO Last administered on 10:27; Start 01/09/17 at 10:30; Stop 01/11/17 at 08:19; Status DC Tramadol HCl (Ultram) 50 mg PRN Q6HRS PRN PO PAIN; Start 01/09/17 at 09:30 Non-Formulary Medication 2 puff QID INH ; Start 01/09/17 at 13:00; Status UNV Metoprolol Tartrate (Lopressor) 25 mg BID PO Last administered on 01/11/17 21: 38; Start 01/09/17 at 10:30; Stop 01/13/17 at 14:20; Status DC Fluticasone Propionate 2 spray 2 spray DAILY NS Last administered on 01/09/17 10:28; Start 01/09/17 at 10:30; Stop 01/09/17 at 13:10; Status DC Amino Acids/ Electrolytes/ Dextrose (Clinimix E 4.25%-5% Solution) 1,000 ml @ 80 mls/hr [id number] IV Last administered on 01/10/17 01:00; Start 01/09/17 at 10: 30; Stop 01/11/17 at 21:59; Status DC Enoxaparin Sodium (Lovenox 30mg Syringe) 30 mg Q24H SQ ; Start 01/09/17 at 10:00 ; Stop 01/09/17 at 10:00; Status DC Enoxaparin Sodium (Lovenox 30mg Syringe) 30 mg 1X ONCE SQ ; Start 01/09/17 at 10 :00; Stop 01/09/17 at 10:00; Status DC Enoxaparin Sodium (Lovenox 30mg Syringe) 30 mg Q24H SQ ; Start 01/10/17 at 21:00 ; Stop 01/11/17 at 09:42; Status DC Albuterol Sulfate (Ventolin Neb Soln) 2.5 mg RTQID NEB Last administered on t 10:51; Start 01/09/17 at 12:00 Fluticasone Propionate (Flonase) 2 spray DAILY NS Last administered on t 09:00; Start 01/09/17 at 13:10 Ondansetron HCl (Zofran) 4 mg PRN Q6HRS PRN IV NAUSEA/VOMITING; Start 01/10/17 at 07:30; Stop 01/10/17 at 18:00; Status DC Fentanyl Citrate (Fentanyl 2ml Vial) 25 mcg PRN Q5MIN PRN IV MILD PAIN; Start 01/10/17 at 07:30; Stop 01/10/17 at 18:00; Status DC Fentanyl Citrate 50 mcg 50 mcg PRN Q5MIN PRN IV MODERATE PAIN; Start 01/10/17 at 07:30; Stop 01/10/17 at 18:00; Status DC Lactated Ringer's (Iv Lactated Ringers) 1,000 ml @ 30 mls/hr Q24H IV ; Start at 07:28; Stop 01/10/17 at 19:27; Status DC Prochlorperazine Edisylate (Compazine) 5 mg PACU PRN PRN IV NAUSEA, MRX1; Start 01/10/17 at 07:30; Stop 01/10/17 at 18:00; Status DC Desflurane (Suprane) 90 ml STK-MED ONCE IH ; Start 01/10/17 at 09:03; Stop at 09:04; Status DC Fentanyl Citrate (Fentanyl 2ml Vial) 100 mcg STK-MED ONCE .ROUTE ; Start at 09:03; Stop 01/10/17 at 09:04; Status DC Rocuronium Holland 50 mg 50 mg STK-MED ONCE .ROUTE ; Start 01/10/17 at 09:03; Stop 01/10/17 at 09:04; Status DC Propofol (Diprivan) 20 ml @ As Directed STK-MED ONCE IV ; Start 01/10/17 at 09:04 ; Stop 01/10/17 at 09:05; Status DC Ondansetron HCl (Zofran) 4 mg STK-MED ONCE .ROUTE ; Start 01/10/17 at 09:04; Stop 01/10/17 at 09:05; Status DC Dexamethasone Sodium Phosphate (Decadron) 20 mg STK-MED ONCE .ROUTE ; Start 01/10 at 09:04; Stop 01/10/17 at 09:05; Status DC Lidocaine HCl (Lidocaine HCl 2% Abboject) 100 mg STK-MED ONCE .ROUTE ; Start 01/10/17 at 09:04; Stop 01/10/17 at 09:05; Status DC Phenylephrine HCl (Rodrigue-Synephrine Inj) 10 mg STK-MED ONCE .ROUTE ; Start at 09:27; Stop 01/10/17 at 09:28; Status DC Fentanyl Citrate (Fentanyl 5ml Vial) 250 mcg STK-MED ONCE .ROUTE ; Start at 10:17; Stop 01/10/17 at 10:18; Status DC Rocuronium Holland 50 mg 50 mg STK-MED ONCE .ROUTE ; Start 01/10/17 at 10:26; Stop 01/10/17 at 10:27; Status DC Albumin Human (Plasmanate) 500 ml @ As Directed STK-MED ONCE IV ; Start at 11:32; Stop 01/10/17 at 11:33; Status DC Lorazepam (Ativan) 2 mg STK-MED ONCE .ROUTE ; Start 01/10/17 at 11:38; Stop at 11:39; Status DC Cellulose 1 each 1 each STK-MED ONCE .ROUTE Last administered on 01/10/17t 10:23 ; Start 01/10/17 at 12:09; Stop 01/10/17 at 12:10; Status DC Albumin Human (Plasmanate) 500 ml @ As Directed STK-MED ONCE IV ; Start at 12:14; Stop 01/10/17 at 12:15; Status DC Phenylephrine HCl (Rodrigue-Synephrine Inj) 10 mg STK-MED ONCE .ROUTE ; Start at 12:14; Stop 01/10/17 at 12:15; Status DC Cellulose 1 each STK-MED ONCE .ROUTE Last administered on 01/10/17 10:23; Start 01/10/17 at 12:46; Stop 01/10/17 at 12:47; Status DC Lorazepam (Ativan) 2 mg STK-MED ONCE .ROUTE ; Start 01/10/17 at 12:47; Stop at 12:48; Status DC Phenylephrine HCl (Rodrigue-Synephrine Inj) 10 mg STK-MED ONCE .ROUTE ; Start at 12:55; Stop 01/10/17 at 12:56; Status DC Vasopressin (Vasostrict) 20 unit STK-MED ONCE .ROUTE ; Start 01/10/17 at 12:58; Stop 01/10/17 at 12:59; Status DC Norepinephrine Bitartrate (Levophed Vial) 4 mg STK-MED ONCE IV ; Start 01/10/17 at 13:00; Stop 01/10/17 at 13:01; Status DC Norepinephrine Bitartrate (Levophed Vial) 4 mg STK-MED ONCE IV ; Start 01/10/17 at 13:00; Stop 01/10/17 at 13:01; Status DC Rocuronium Holland (Zemuron) 50 mg STK-MED ONCE .ROUTE ; Start 01/10/17 at 13:30 ; Stop 01/10/17 at 13:31; Status DC Famotidine (Pepcid) 20 mg QHS IVP ; Start 01/10/17 at 21:00; Stop 01/11/17 at 08: 15; Status DC Sodium Chloride 3 ml 3 ml QSHIFT PRN IV AFTER MEDS AND BLOOD DRAWS; Start at 13:45; Stop 01/12/17 at 14:37; Status DC Lactated Ringer's (Iv Lactated Ringers) 1,000 ml @ 100 mls/hr Q10H IV Last administered on 01/12/17 05:17; Start 01/10/17 at 13:43; Stop 01/12/17 at 13:21 ; Status DC Morphine Sulfate 1 mg PRN Q1HR PRN IV PAIN Last administered on 01/15/17 04:00 ; Start 01/10/17 at 13:45 Ondansetron HCl (Zofran) 4 mg PRN Q6HRS PRN IV NAUESA, 1ST CHOICE Last administered on 01/16/17 00:22; Start 01/10/17 at 13:45 Cellulose 2 each STK-MED ONCE TP Last administered on 01/10/17 10:23; Start 01/10/17 at 10:23; Stop 01/10/17 at 14:25; Status DC Lorazepam (Ativan) 2 mg STK-MED ONCE .ROUTE ; Start 01/10/17 at 20:59; Stop at 21:00; Status DC Rocuronium Holland 50 mg 50 mg STK-MED ONCE .ROUTE ; Start 01/10/17 at 21:30; Stop 01/10/17 at 21:31; Status DC Cefoxitin Sodium (Mefoxin 2gm Ivpb For Omni) 100 ml @ As Directed STK-MED ONCE IV ; Start 01/10/17 at 21:45; Stop 01/10/17 at 21:46; Status DC Cellulose 1 each STK-MED ONCE .ROUTE Last administered on 01/10/17 21:47; Start 01/10/17 at 21:48; Stop 01/10/17 at 21:49; Status DC Cellulose 2 each STK-MED ONCE TP Last administered on 01/10/17 21:47; Start 01/10/17 at 21:47; Stop 01/10/17 at 22:14; Status DC Sodium Chloride 3 ml 3 ml QSHIFT PRN IV AFTER MEDS AND BLOOD DRAWS; Start at 22:30 Fentanyl Citrate 30 ml @ 0 mls/hr CONT PRN IV PROTOCOL Last administered on 07:44; Start 01/10/17 at 22:30; Stop 01/16/17 at 11:23; Status DC Propofol (Diprivan) 100 ml @ 0 mls/hr CONT PRN IV PER PROTOCOL Last administered on 01/13/17 18:39; Start 01/10/17 at 22:30; Stop 01/16/17 at 11:12 ; Status DC Chlorhexidine Gluconate 15 ml 15 ml BID MM Last administered on 01/15/17 20:49 ; Start 01/11/17 at 09:00; Stop 01/16/17 at 11:22; Status DC Sodium Chloride 1,000 ml @ 1,000 mls/hr 1X ONCE IV Last administered on 02:30; Start 01/11/17 at 02:30; Stop 01/11/17 at 03:29; Status DC Levothyroxine Sodium 25 mcg/ Sodium Chloride 5 ml @ 100 mls/hr DAILY IVP Last administered on 01/16/17 09:00; Start 01/11/17 at 09:00 Sodium Chloride (Iv Sodium Chloride 0.9% 500ml Bag) 500 ml @ 500 mls/hr 1X ONCE IV Last administered on 01/11/17 09:45; Start 01/11/17 at 09:45; Stop at 10:44; Status DC Heparin Sodium (Porcine) 5,000 unit Q8HRS SQ ; Start 01/11/17 at 14:00; Stop 01/11 at 16:45; Status DC Info 1 each 1 each PRN DAILY PRN MC SEE COMMENTS Last administered on 11:25; Start 01/11/17 at 10:15 Norepinephrine Bitartrate 8 mg/ Sodium Chloride 258 ml @ 0 mls/hr CONT PRN IV SEE I/O RECORD Last administered on 01/11/17 12:58; Start 01/11/17 at 11:15; Stop 01/16/17 at 11:22; Status DC Lactated Ringer's 500 ml @ 500 mls/hr PRN Q2HRS PRN IV HYPOTENTION; Start 01/11 at 13:15 Sodium Chloride 500 ml @ 500 mls/hr PRN Q2HR PRN IV hypotention; Start at 13:15 Sodium Acetate/ Potassium Acetate/ Potassium Phosphate/ Magnesium Sulfate/ Calcium Gluconate/ Chromium/Copper/ Manganese/Seleni/ Zn/Total Parenteral Nutrition/Amino Acids/Dextrose/ Fat Emulsion Intravenous (Potassium Phosphate/ Calcium Gluconate/ Multitrace-5 Conc/ Tpn - Tpn Flu... 1,512 ml @ 63 mls/hr TPN CONT IV Last administered on 01/11/17 21:39; Start 01/11/17 at 22:00; Stop 01/12/17 at 21:59; Status DC Info 1 each PRN DAILY PRN MC SEE COMMENTS; Start 01/11/17 at 13:45; Status UNV Cefoxitin Sodium 4 gm 4 gm STK-MED ONCE IV ; Start 01/10/17 at 12:00; Stop at 08:16; Status DC Sodium Chloride (Iv Sodium Chloride 0.9% 1000ml Bag) 1,000 ml @ 60 mls/hr [id number] IV Last administered on 01/15/17 09:45; Start 01/12/17 at 13:15 Insulin Aspart (Novolog) 0-7 UNITS TIDWMEALS SQ Last administered on 01/12/17 17:06; Start 01/12/17 at 17:00; Stop 01/13/17 at 00:28; Status DC Dextrose 12.5 gm 12.5 gm PRN Q15MIN PRN IV SEE COMMENTS; Start 01/12/17 at 13: 30 Magnesium Sulfate/ Dextrose 50 ml @ 25 mls/hr 1X ONCE IV Last administered on 01/12/17 14:16; Start 01/12/17 at 14:00; Stop 01/12/17 at 15:59; Status DC Potassium Phosphate 10 mmol/ Sodium Chloride 103.3333 ml @ 51.667 m... 1X ONCE IV Last administered on 01/12/17 14:16; Start 01/12/17 at 14:00; Stop 07/21 at 15:59; Status DC Sodium Acetate/ Potassium Acetate/ Potassium Phosphate/ Magnesium Sulfate/ Calcium Gluconate/ Chromium/Copper/ Manganese/Seleni/ Zn/Total Parenteral Nutrition/Amino Acids/Dextrose/ Fat Emulsion Intravenous (Potassium Phosphate/ Calcium Gluconate/ Multitrace-5 Conc/ Tpn - Tpn Flu... 1,512 ml @ 63 mls/hr TPN CONT IV Last administered on 01/12/17 22:09; Start 01/12/17 at 22:00; Stop 01/13/17 at 21:59; Status DC Darbepoetin Luis (Aranesp) 60 mcg [id number] SQ Last administered on 01/12/17 22 :09; Start 01/12/17 at 21:00 Insulin Aspart 0-7 UNITS Q6HRS SQ Last administered on 01/16/17 06:17; Start 01/13/17 at 00:30 Piperacillin Sod/ Tazobactam Sod 3.375 gm/Sodium Chloride 50 ml @ 100 mls/hr Q8HRS IV Last administered on 01/13/17 12:07; Start 01/13/17 at 12:00; Stop at 12:55; Status DC Sodium Acetate 70 meq/Potassium Acetate 60 meq/ Potassium Phosphate 20 mmol/ Magnesium Sulfate 15 meq/Calcium Gluconate 10 meq/ Multivitamins 10 ml/Chromium / Copper/Manganese/ Seleni/Zn 1 ml/ Insulin Human Regular 15 unit/ Total Parenteral Nutrition/Amino Acids/Dextrose/ Fat Emulsion Intravenous 1,512 ml @ 63 mls/hr TPN CONT IV Last administered on 01/13/17 22:35; Start 01/13/17 at 22:00; Stop 01/14/17 at 21:59; Status DC Piperacillin Sod/ Tazobactam Sod/ Sodium Chloride (Zosyn/Iv Sodium Chloride 0.9 % 50ml) 50 ml @ 100 mls/hr Q6HRS IV Last administered on 01/16/17 05:52; Start 01/13/17 at 18:00 Metoprolol Tartrate (Lopressor) 5 mg Q6HRS IVP Last administered on 01/16/17 00:12; Start 01/13/17 at 18:00 Dextrose (Dextrose 50%-Water Syringe) 25 gm 1X ONCE IV ; Start 01/13/17 at 16: 45; Stop 01/13/17 at 16:46; Status DC Insulin Detemir 15 units 15 units QHS SQ Last administered on 01/14/17 21:41; Start 01/14/17 at 21:00 Sodium Acetate 70 meq/Potassium Acetate 45 meq/ Potassium Phosphate 20 mmol/ Magnesium Sulfate 15 meq/Calcium Gluconate 10 meq/ Multivitamins 10 ml/Chromium / Copper/Manganese/ Seleni/Zn 1 ml/ Total Parenteral Nutrition/Amino Acids/ Dextrose/ Fat Emulsion Intravenous 1,512 ml @ 63 mls/hr TPN CONT IV Last administered on 01/14/17 21:42; Start 01/14/17 at 22:00; Stop 01/15/17 at 21:59 ; Status DC Sodium Acetate/ Potassium Acetate/ Potassium Phosphate/ Magnesium Sulfate/ Calcium Gluconate/ Multivitamins/ Chromium/Copper/ Manganese/Seleni/ Zn/Total Parenteral Nutrition/Amino Acids/Dextrose/ Fat Emulsion Intravenous (Potassium Phosphate/Calcium Gluconate/ Infuvite Wild... 1,512 ml @ 63 mls/hr TPN CONT IV Last administered on 01/15/17t 22:22; Start 01/15/17 at 22:00; Stop 01/16/17 at 21:59 Active Scripts Active Reported Pred Forte (Prednisolone Acetate) 1 Ml Drops.susp 1 Ml OU BID PRN Visine Allergy Relief Drop (Tetrahydrozoline Hcl/Zn Sulf) 15 Ml Drops 1 Drop OU PRN Thera Tears (Carboxymethylcellulose Sodium) 15 Ml Drops 1 Drop OU PRN Jaime-128 (Sodium Chloride) 15 Ml Drops 1 Drop OU PRN Tramadol Hcl 100 Mg Tbmp.24hr 100 Mg PO Q6H PRN Tramadol Hcl 50 Mg Tablet 50 Mg PO Q6H PRN Zyrtec (Cetirizine Hcl) 10 Mg Tablet 10 Mg PO DAILY Nasacort (Triamcinolone Acetonide) 10.8 Ml Ward 2 Ward NS DAILY Proair Hfa Inhaler (Albuterol Sulfate) 8.5 Gm Hfa.aer.ad 2 Puff INH QID Mucinex (Guaifenesin) 600 Mg Tablet.er 600 Mg PO Q8HRS PRN Levothyroxine Sodium 50 Mcg Tablet 50 Mcg PO DAILYAC Dyazide 37.5-25 Capsule (Triamterene/Hydrochlorothiazid) 1 Each Capsule 1 Cap PO DAILY Bystolic (Nebivolol) 5 Mg Tablet 5 Mg PO DAILY Vitals/I & O Vital Sign - Last 24 Hours 01/15/17 01/15/17 01/15/17 01/15/17 11:46 12:00 12:00 12:28 Temp 98.4 98.4 Pulse 75 81 Resp 28 B/P 144/62 144/62 Pulse Ox 96 95 O2 Delivery Nasal Cannula Nasal Cannula Nasal Cannula O2 Flow Rate 2.0 2.0 2.0 01/15/17 01/15/17 01/15/17 01/15/17 13:00 14:00 14:53 15:00 Pulse 80 81 84 Resp 29 28 24 B/P 142/84 149/60 146/60 Pulse Ox 96 94 94 95 O2 Delivery Nasal Cannula Nasal Cannula Nasal Cannula Nasal Cannula O2 Flow Rate 2.0 2.0 2.0 2.0 01/15/17 01/15/17 01/15/17 01/15/17 16:20 18:22 19:00 20:00 Temp 98.1 98.9 98.1 98.9 Pulse 83 83 80 Resp 18 B/P 151/54 159/58 161/54 Pulse Ox 94 98 O2 Delivery Room Air Nasal Cannula Nasal Cannula O2 Flow Rate 2.0 2.0 01/15/17 01/15/17 01/16/17 01/16/17 21:13 23:00 00:12 03:00 Temp 98.7 98.3 98.7 98.3 Pulse 86 83 Resp 18 B/P 149/56 149/56 147/53 Pulse Ox 97 97 94 O2 Delivery Nasal Cannula Nasal Cannula Nasal Cannula O2 Flow Rate 2.0 2.0 2.0 01/16/17 01/16/17 01/16/17 01/16/17 06:00 07:00 07:06 07:50 Temp 97.7 97.7 Pulse 52 87 Resp 18 B/P 149/49 138/52 Pulse Ox 93 90 O2 Delivery Nasal Cannula Nasal Cannula Nasal Cannula O2 Flow Rate 2.0 2.0 2.0 01/16/17 01/16/17 10:51 11:00 Temp 98.1 98.1 Pulse 83 Resp 18 B/P 157/50 Pulse Ox 95 98 O2 Delivery Nasal Cannula Nasal Cannula O2 Flow Rate 2.0 2.0 Intake and Output 01/15/17 01/15/17 01/16/17 14:59 22:59 06:59 Intake Total 1718 ml Output Total 1130 ml 545 ml 1470 ml Balance -1130 ml -545 ml 248 ml JOSE MARQUEZ III DO Jan 16, 2017 11:44
[2017-01-16] MEDS: TPN PER PHARMACY MC PRN (12:50)
[2017-01-16] MEDS: MORPHINE SULFATE 2 MG/ML DISP.SYRIN. IV PRN (13:18)
--- NOTE | 2017-01-16 13:18 | PDOC ---
SURGICAL PROGRESS NOTE Subjective Pt reports feeling "puny", tamara some clears, pain controlled, no N/V Vital Signs Vital Signs Date Time Temp Pulse Resp B/P Pulse Ox O2 Delivery O2 Flow Rate FiO2 01/16/17 11:00 98.1 83 18 157/50 98 Nasal Cannula 2.0 98.1 I&O Intake and Output 01/16/17 07:00 Intake Total 1718 ml Output Total 3145 ml Balance -1427 ml Intake Oral 150 ml Other 1568 ml Output Urine Total 2015 ml Stool Total 350 ml Drainage Total 780 ml General: Alert, Oriented X3, Cooperative, No acute distress Abdomen: Soft, No tenderness, Other (dressing c/d/i, JANICE serosang, ostomy fxn) Labs Laboratory Tests Test 01/14/17 14:58 01/14/17 18:22 01/14/17 21:36 01/14/17 23:02 Glucose (Fingerstick) 136mg/dL (70-99) 136mg/dL (70-99) 152mg/dL (70-99) 146mg/dL (70-99) Test 01/15/17 05:47 01/15/17 05:48 01/15/17 12:32 01/15/17 18:15 Glucose (Fingerstick) 111mg/dL (70-99) 86mg/dL (70-99) 92mg/dL (70-99) White Blood Count 20.7x10^3/uL (4.0-11.0) Red Blood Count 2.87x10^6/uL (3.50-5.40) Hemoglobin 8.2g/dL (12.0-15.5) Hematocrit 25.1% (36.0-47.0) Mean Corpuscular Volume 88fL (79-100) Mean Corpuscular Hemoglobin 29pg (25-35) Mean Corpuscular Hemoglobin Concent 33g/dL (31-37) Red Cell Distribution Width 16.1% (11.5-14.5) Platelet Count 130x10^3/uL (140-400) Neutrophils (%) (Auto) 82% (31-73) Lymphocytes (%) (Auto) 6% (24-48) Monocytes (%) (Auto) 10% (0-9) Eosinophils (%) (Auto) 2% (0-3) Basophils (%) (Auto) 0% (0-3) Neutrophils # (Auto) 16.9x10^3uL (1.8-7.7) Lymphocytes # (Auto) 1.2x10^3/uL (1.0-4.8) Monocytes # (Auto) 2.1x10^3/uL (0.0-1.1) Eosinophils # (Auto) 0.4x10^3/uL (0.0-0.7) Basophils # (Auto) 0.1x10^3/uL (0.0-0.2) Sodium Level 143mmol/L (136-145) Potassium Level 4.3mmol/L (3.5-5.1) Chloride Level 110mmol/L (98-107) Carbon Dioxide Level 28mmol/L (21-32) Anion Gap 5 (6-14) Blood Urea Nitrogen 29mg/dL (7-20) Creatinine 1.1mg/dL (0.6-1.0) Estimated GFR (Cockcroft-Gault) 47.9 Glucose Level 120mg/dL (70-99) Calcium Level 7.4mg/dL (8.5-10.1) Phosphorus Level 3.6mg/dL (2.6-4.7) Test 01/15/17 23:51 01/16/17 04:00 01/16/17 06:05 01/16/17 07:25 Glucose (Fingerstick) 159mg/dL (70-99) 179mg/dL (70-99) 208mg/dL (70-99) Sodium Level 139mmol/L (136-145) Potassium Level 4.2mmol/L (3.5-5.1) Chloride Level 105mmol/L (98-107) Carbon Dioxide Level 28mmol/L (21-32) Anion Gap 6 (6-14) Blood Urea Nitrogen 25mg/dL (7-20) Creatinine 1.1mg/dL (0.6-1.0) Estimated GFR (Cockcroft-Gault) 47.9 Glucose Level 197mg/dL (70-99) Calcium Level 7.9mg/dL (8.5-10.1) Test 01/16/17 12:11 Glucose (Fingerstick) 211mg/dL (70-99) Laboratory Tests Test 01/15/17 18:15 01/15/17 23:51 01/16/17 04:00 01/16/17 06:05 Glucose (Fingerstick) 92mg/dL (70-99) 159mg/dL (70-99) 179mg/dL (70-99) Sodium Level 139mmol/L (136-145) Potassium Level 4.2mmol/L (3.5-5.1) Chloride Level 105mmol/L (98-107) Carbon Dioxide Level 28mmol/L (21-32) Anion Gap 6 (6-14) Blood Urea Nitrogen 25mg/dL (7-20) Creatinine 1.1mg/dL (0.6-1.0) Estimated GFR (Cockcroft-Gault) 47.9 Glucose Level 197mg/dL (70-99) Calcium Level 7.9mg/dL (8.5-10.1) Test 01/16/17 07:25 01/16/17 12:11 Glucose (Fingerstick) 208mg/dL (70-99) 211mg/dL (70-99) Problem List Problems Medical Problems: (1) Pancreatic mass Status: Acute Assessment/Plan s/p xlap ADAT cont tpn d/w pt and pt's son Problems: JOSÉ MIGUEL VALERO MD Jan 16, 2017 13:18
--- NOTE | 2017-01-16 13:21 | PDOC ---
G I PROGRESS NOTE Reason for Follow-up Pancreatic cancer Subjective Extubated, trial of liquids today Physical Exam Lungs decreased BS CV S1 S2 ABD +BS, soft, incisions intact Review of Relevant I have reviewed the following items [place] (where applicable) has been applied. Labs Laboratory Tests Test 01/14/17 14:58 01/14/17 18:22 01/14/17 21:36 01/14/17 23:02 Glucose (Fingerstick) 136mg/dL (70-99) 136mg/dL (70-99) 152mg/dL (70-99) 146mg/dL (70-99) Test 01/15/17 05:47 01/15/17 05:48 01/15/17 12:32 01/15/17 18:15 Glucose (Fingerstick) 111mg/dL (70-99) 86mg/dL (70-99) 92mg/dL (70-99) White Blood Count 20.7x10^3/uL (4.0-11.0) Red Blood Count 2.87x10^6/uL (3.50-5.40) Hemoglobin 8.2g/dL (12.0-15.5) Hematocrit 25.1% (36.0-47.0) Mean Corpuscular Volume 88fL (79-100) Mean Corpuscular Hemoglobin 29pg (25-35) Mean Corpuscular Hemoglobin Concent 33g/dL (31-37) Red Cell Distribution Width 16.1% (11.5-14.5) Platelet Count 130x10^3/uL (140-400) Neutrophils (%) (Auto) 82% (31-73) Lymphocytes (%) (Auto) 6% (24-48) Monocytes (%) (Auto) 10% (0-9) Eosinophils (%) (Auto) 2% (0-3) Basophils (%) (Auto) 0% (0-3) Neutrophils # (Auto) 16.9x10^3uL (1.8-7.7) Lymphocytes # (Auto) 1.2x10^3/uL (1.0-4.8) Monocytes # (Auto) 2.1x10^3/uL (0.0-1.1) Eosinophils # (Auto) 0.4x10^3/uL (0.0-0.7) Basophils # (Auto) 0.1x10^3/uL (0.0-0.2) Sodium Level 143mmol/L (136-145) Potassium Level 4.3mmol/L (3.5-5.1) Chloride Level 110mmol/L (98-107) Carbon Dioxide Level 28mmol/L (21-32) Anion Gap 5 (6-14) Blood Urea Nitrogen 29mg/dL (7-20) Creatinine 1.1mg/dL (0.6-1.0) Estimated GFR (Cockcroft-Gault) 47.9 Glucose Level 120mg/dL (70-99) Calcium Level 7.4mg/dL (8.5-10.1) Phosphorus Level 3.6mg/dL (2.6-4.7) Test 01/15/17 23:51 01/16/17 04:00 01/16/17 06:05 01/16/17 07:25 Glucose (Fingerstick) 159mg/dL (70-99) 179mg/dL (70-99) 208mg/dL (70-99) Sodium Level 139mmol/L (136-145) Potassium Level 4.2mmol/L (3.5-5.1) Chloride Level 105mmol/L (98-107) Carbon Dioxide Level 28mmol/L (21-32) Anion Gap 6 (6-14) Blood Urea Nitrogen 25mg/dL (7-20) Creatinine 1.1mg/dL (0.6-1.0) Estimated GFR (Cockcroft-Gault) 47.9 Glucose Level 197mg/dL (70-99) Calcium Level 7.9mg/dL (8.5-10.1) Test 01/16/17 12:11 Glucose (Fingerstick) 211mg/dL (70-99) Laboratory Tests Test 01/15/17 18:15 01/15/17 23:51 01/16/17 04:00 01/16/17 06:05 Glucose (Fingerstick) 92mg/dL (70-99) 159mg/dL (70-99) 179mg/dL (70-99) Sodium Level 139mmol/L (136-145) Potassium Level 4.2mmol/L (3.5-5.1) Chloride Level 105mmol/L (98-107) Carbon Dioxide Level 28mmol/L (21-32) Anion Gap 6 (6-14) Blood Urea Nitrogen 25mg/dL (7-20) Creatinine 1.1mg/dL (0.6-1.0) Estimated GFR (Cockcroft-Gault) 47.9 Glucose Level 197mg/dL (70-99) Calcium Level 7.9mg/dL (8.5-10.1) Test 01/16/17 07:25 01/16/17 12:11 Glucose (Fingerstick) 208mg/dL (70-99) 211mg/dL (70-99) Microbiology 01/13/17 Blood Culture - Preliminary, Resulted NO GROWTH AFTER 3 DAYS Medications Current Medications Sodium Chloride (Iv Sodium Chloride 0.45%) 1,000 ml @ 80 mls/hr [id number] IV Last administered on 01/08/17 22:17; Start 01/08/17 at 21:03; Stop 01/09/17 at 09: 23; Status DC Ondansetron HCl (Zofran) 4 mg PRN Q6HRS PRN IV NAUSEA/VOMITING Last administered on 01/09/17 15:51; Start 01/08/17 at 21:15; Stop 01/10/17 at 17:41; Status DC Prochlorperazine Edisylate (Compazine) 10 mg PRN Q6HRS PRN IV NAUSEA/VOMITING; Start 01/08/17 at 21:15 Prochlorperazine (Compazine) 25 mg PRN Q12HR PRN MS NAUSEA/VOMITING; Start 01/08 at 21:15 Al Hydroxide/Mg Hydroxide (Mylanta Plus Xs) 30 ml PRN Q3HRS PRN PO HEARTBURN / GAS; Start 01/08/17 at 21:15 Calcium Carbonate/ Glycine (Tums) 500 mg PRN Q3HRS PRN PO UPSET STOMACH; Start 01/08/17 at 21:15; Stop 01/08/17 at 21:20; Status DC Oxycodone HCl (Roxicodone) 5 mg PRN Q3HRS PRN PO BREAKTHROUGH PAIN Last administered on 01/09/17 20:54; Start 01/08/17 at 21:15 Morphine Sulfate 1 mg PRN Q2HR PRN IV PAIN Last administered on 01/10/17 08:51 ; Start 01/08/17 at 21:15; Stop 01/11/17 at 08:13; Status DC Acetaminophen (Tylenol) 650 mg PRN Q6HRS PRN PO MILD PAIN / TEMP; Start at 21:15 Docusate Sodium (Colace) 100 mg BID PO Last administered on 01/16/17 09:00; Start 01/08/17 at 22:00 Magnesium Hydroxide (Milk Of Magnesia) 2,400 mg PRN Q12HR PRN PO CONSTIPATION; Start 01/08/17 at 21:15 Bisacodyl (Dulcolax Supp) 10 mg PRN DAILY PRN MS CONSTIPATION; Start 01/08/17 at 21:15 Enoxaparin Sodium (Lovenox 40mg Syringe) 40 mg Q24H SQ ; Start 01/08/17 at 22:00 ; Stop 01/08/17 at 22:00; Status DC Pantoprazole Sodium (Protonix Vial) 40 mg DAILYAC IVP Last administered on 01/16 06:17; Start 01/09/17 at 07:30 Enoxaparin Sodium 30 mg 30 mg Q24H SQ Last administered on 01/08/17 22:20; Start 01/08/17 at 22:00; Stop 01/09/17 at 09:24; Status DC Cefoxitin Sodium (Mefoxin 2gm Ivpb For Omni) 100 ml @ 200 mls/hr 1X PERIOP IV ; Start 01/09/17 at 08:45; Stop 01/10/17 at 11:49; Status DC Cetirizine HCl (Zyrtec) 10 mg DAILY PO Last administered on 01/16/17 09:00; Start 01/09/17 at 10:30 Guaifenesin (Mucinex) 600 mg PRN Q8HRS PRN PO CONGESTION; Start 01/09/17 at 09: 30 Levothyroxine Sodium (Synthroid) 50 mcg DAILYAC PO Last administered on 10:27; Start 01/09/17 at 10:30; Stop 01/11/17 at 08:19; Status DC Tramadol HCl (Ultram) 50 mg PRN Q6HRS PRN PO PAIN; Start 01/09/17 at 09:30 Non-Formulary Medication 2 puff QID INH ; Start 01/09/17 at 13:00; Status UNV Metoprolol Tartrate (Lopressor) 25 mg BID PO Last administered on 01/11/17 21: 38; Start 01/09/17 at 10:30; Stop 01/13/17 at 14:20; Status DC Fluticasone Propionate 2 spray 2 spray DAILY NS Last administered on 01/09/17 10:28; Start 01/09/17 at 10:30; Stop 01/09/17 at 13:10; Status DC Amino Acids/ Electrolytes/ Dextrose (Clinimix E 4.25%-5% Solution) 1,000 ml @ 80 mls/hr [id number] IV Last administered on 01/10/17 01:00; Start 01/09/17 at 10: 30; Stop 01/11/17 at 21:59; Status DC Enoxaparin Sodium (Lovenox 30mg Syringe) 30 mg Q24H SQ ; Start 01/09/17 at 10:00 ; Stop 01/09/17 at 10:00; Status DC Enoxaparin Sodium (Lovenox 30mg Syringe) 30 mg 1X ONCE SQ ; Start 01/09/17 at 10 :00; Stop 01/09/17 at 10:00; Status DC Enoxaparin Sodium (Lovenox 30mg Syringe) 30 mg Q24H SQ ; Start 01/10/17 at 21:00 ; Stop 01/11/17 at 09:42; Status DC Albuterol Sulfate (Ventolin Neb Soln) 2.5 mg RTQID NEB Last administered on 10:51; Start 01/09/17 at 12:00 Fluticasone Propionate (Flonase) 2 spray DAILY NS Last administered on 09:00; Start 01/09/17 at 13:10 Ondansetron HCl (Zofran) 4 mg PRN Q6HRS PRN IV NAUSEA/VOMITING; Start 01/10/17 at 07:30; Stop 01/10/17 at 18:00; Status DC Fentanyl Citrate (Fentanyl 2ml Vial) 25 mcg PRN Q5MIN PRN IV MILD PAIN; Start 01/10/17 at 07:30; Stop 01/10/17 at 18:00; Status DC Fentanyl Citrate 50 mcg 50 mcg PRN Q5MIN PRN IV MODERATE PAIN; Start 01/10/17 at 07:30; Stop 01/10/17 at 18:00; Status DC Lactated Ringer's (Iv Lactated Ringers) 1,000 ml @ 30 mls/hr Q24H IV ; Start at 07:28; Stop 01/10/17 at 19:27; Status DC Prochlorperazine Edisylate (Compazine) 5 mg PACU PRN PRN IV NAUSEA, MRX1; Start 01/10/17 at 07:30; Stop 01/10/17 at 18:00; Status DC Desflurane (Suprane) 90 ml STK-MED ONCE IH ; Start 01/10/17 at 09:03; Stop at 09:04; Status DC Fentanyl Citrate (Fentanyl 2ml Vial) 100 mcg STK-MED ONCE .ROUTE ; Start at 09:03; Stop 01/10/17 at 09:04; Status DC Rocuronium Methow 50 mg 50 mg STK-MED ONCE .ROUTE ; Start 01/10/17 at 09:03; Stop 01/10/17 at 09:04; Status DC Propofol (Diprivan) 20 ml @ As Directed STK-MED ONCE IV ; Start 01/10/17 at 09:04 ; Stop 01/10/17 at 09:05; Status DC Ondansetron HCl (Zofran) 4 mg STK-MED ONCE .ROUTE ; Start 01/10/17 at 09:04; Stop 01/10/17 at 09:05; Status DC Dexamethasone Sodium Phosphate (Decadron) 20 mg STK-MED ONCE .ROUTE ; Start 01/10 at 09:04; Stop 01/10/17 at 09:05; Status DC Lidocaine HCl (Lidocaine HCl 2% Abboject) 100 mg STK-MED ONCE .ROUTE ; Start 01/10/17 at 09:04; Stop 01/10/17 at 09:05; Status DC Phenylephrine HCl (Rodrigue-Synephrine Inj) 10 mg STK-MED ONCE .ROUTE ; Start at 09:27; Stop 01/10/17 at 09:28; Status DC Fentanyl Citrate (Fentanyl 5ml Vial) 250 mcg STK-MED ONCE .ROUTE ; Start at 10:17; Stop 01/10/17 at 10:18; Status DC Rocuronium Methow 50 mg 50 mg STK-MED ONCE .ROUTE ; Start 01/10/17 at 10:26; Stop 01/10/17 at 10:27; Status DC Albumin Human (Plasmanate) 500 ml @ As Directed STK-MED ONCE IV ; Start at 11:32; Stop 01/10/17 at 11:33; Status DC Lorazepam (Ativan) 2 mg STK-MED ONCE .ROUTE ; Start 01/10/17 at 11:38; Stop at 11:39; Status DC Cellulose 1 each 1 each STK-MED ONCE .ROUTE Last administered on 01/10/17 10:23 ; Start 01/10/17 at 12:09; Stop 01/10/17 at 12:10; Status DC Albumin Human (Plasmanate) 500 ml @ As Directed STK-MED ONCE IV ; Start at 12:14; Stop 01/10/17 at 12:15; Status DC Phenylephrine HCl (Rodrigue-Synephrine Inj) 10 mg STK-MED ONCE .ROUTE ; Start at 12:14; Stop 01/10/17 at 12:15; Status DC Cellulose 1 each STK-MED ONCE .ROUTE Last administered on 01/10/17 10:23; Start 01/10/17 at 12:46; Stop 01/10/17 at 12:47; Status DC Lorazepam (Ativan) 2 mg STK-MED ONCE .ROUTE ; Start 01/10/17 at 12:47; Stop at 12:48; Status DC Phenylephrine HCl (Rodrigue-Synephrine Inj) 10 mg STK-MED ONCE .ROUTE ; Start at 12:55; Stop 01/10/17 at 12:56; Status DC Vasopressin (Vasostrict) 20 unit STK-MED ONCE .ROUTE ; Start 01/10/17 at 12:58; Stop 01/10/17 at 12:59; Status DC Norepinephrine Bitartrate (Levophed Vial) 4 mg STK-MED ONCE IV ; Start 01/10/17 at 13:00; Stop 01/10/17 at 13:01; Status DC Norepinephrine Bitartrate (Levophed Vial) 4 mg STK-MED ONCE IV ; Start 01/10/17 at 13:00; Stop 01/10/17 at 13:01; Status DC Rocuronium Methow (Zemuron) 50 mg STK-MED ONCE .ROUTE ; Start 01/10/17 at 13:30 ; Stop 01/10/17 at 13:31; Status DC Famotidine (Pepcid) 20 mg QHS IVP ; Start 01/10/17 at 21:00; Stop 01/11/17 at 08: 15; Status DC Sodium Chloride 3 ml 3 ml QSHIFT PRN IV AFTER MEDS AND BLOOD DRAWS; Start at 13:45; Stop 01/12/17 at 14:37; Status DC Lactated Ringer's (Iv Lactated Ringers) 1,000 ml @ 100 mls/hr Q10H IV Last administered on 01/12/17 05:17; Start 01/10/17 at 13:43; Stop 01/12/17 at 13:21 ; Status DC Morphine Sulfate 1 mg PRN Q1HR PRN IV PAIN Last administered on 01/15/17 04:00 ; Start 01/10/17 at 13:45 Ondansetron HCl (Zofran) 4 mg PRN Q6HRS PRN IV NAUESA, 1ST CHOICE Last administered on 01/16/17 00:22; Start 01/10/17 at 13:45 Cellulose 2 each STK-MED ONCE TP Last administered on 01/10/17 10:23; Start 01/10/17 at 10:23; Stop 01/10/17 at 14:25; Status DC Lorazepam (Ativan) 2 mg STK-MED ONCE .ROUTE ; Start 01/10/17 at 20:59; Stop at 21:00; Status DC Rocuronium Methow 50 mg 50 mg STK-MED ONCE .ROUTE ; Start 01/10/17 at 21:30; Stop 01/10/17 at 21:31; Status DC Cefoxitin Sodium (Mefoxin 2gm Ivpb For Omni) 100 ml @ As Directed STK-MED ONCE IV ; Start 01/10/17 at 21:45; Stop 01/10/17 at 21:46; Status DC Cellulose 1 each STK-MED ONCE .ROUTE Last administered on 01/10/17 21:47; Start 01/10/17 at 21:48; Stop 01/10/17 at 21:49; Status DC Cellulose 2 each STK-MED ONCE TP Last administered on 01/10/17 21:47; Start 01/10/17 at 21:47; Stop 01/10/17 at 22:14; Status DC Sodium Chloride 3 ml 3 ml QSHIFT PRN IV AFTER MEDS AND BLOOD DRAWS; Start at 22:30 Fentanyl Citrate 30 ml @ 0 mls/hr CONT PRN IV PROTOCOL Last administered on 07:44; Start 01/10/17 at 22:30; Stop 01/16/17 at 11:23; Status DC Propofol (Diprivan) 100 ml @ 0 mls/hr CONT PRN IV PER PROTOCOL Last administered on 01/13/17 18:39; Start 01/10/17 at 22:30; Stop 01/16/17 at 11:12 ; Status DC Chlorhexidine Gluconate 15 ml 15 ml BID MM Last administered on 01/15/17 20:49 ; Start 01/11/17 at 09:00; Stop 01/16/17 at 11:22; Status DC Sodium Chloride 1,000 ml @ 1,000 mls/hr 1X ONCE IV Last administered on 02:30; Start 01/11/17 at 02:30; Stop 01/11/17 at 03:29; Status DC Levothyroxine Sodium 25 mcg/ Sodium Chloride 5 ml @ 100 mls/hr DAILY IVP Last administered on 01/16/17 09:00; Start 01/11/17 at 09:00 Sodium Chloride (Iv Sodium Chloride 0.9% 500ml Bag) 500 ml @ 500 mls/hr 1X ONCE IV Last administered on 01/11/17 09:45; Start 01/11/17 at 09:45; Stop at 10:44; Status DC Heparin Sodium (Porcine) 5,000 unit Q8HRS SQ ; Start 01/11/17 at 14:00; Stop 01/11 at 16:45; Status DC Info 1 each 1 each PRN DAILY PRN MC SEE COMMENTS Last administered on 12:50; Start 01/11/17 at 10:15 Norepinephrine Bitartrate 8 mg/ Sodium Chloride 258 ml @ 0 mls/hr CONT PRN IV SEE I/O RECORD Last administered on 01/11/17 12:58; Start 01/11/17 at 11:15; Stop 01/16/17 at 11:22; Status DC Lactated Ringer's 500 ml @ 500 mls/hr PRN Q2HRS PRN IV HYPOTENTION; Start 01/11 at 13:15 Sodium Chloride 500 ml @ 500 mls/hr PRN Q2HR PRN IV hypotention; Start at 13:15 Sodium Acetate/ Potassium Acetate/ Potassium Phosphate/ Magnesium Sulfate/ Calcium Gluconate/ Chromium/Copper/ Manganese/Seleni/ Zn/Total Parenteral Nutrition/Amino Acids/Dextrose/ Fat Emulsion Intravenous (Potassium Phosphate/ Calcium Gluconate/ Multitrace-5 Conc/ Tpn - Tpn Flu... 1,512 ml @ 63 mls/hr TPN CONT IV Last administered on 01/11/17 21:39; Start 01/11/17 at 22:00; Stop 01/12/17 at 21:59; Status DC Info 1 each PRN DAILY PRN MC SEE COMMENTS; Start 01/11/17 at 13:45; Status UNV Cefoxitin Sodium 4 gm 4 gm STK-MED ONCE IV ; Start 01/10/17 at 12:00; Stop at 08:16; Status DC Sodium Chloride (Iv Sodium Chloride 0.9% 1000ml Bag) 1,000 ml @ 60 mls/hr [id number] IV Last administered on 01/15/17 09:45; Start 01/12/17 at 13:15 Insulin Aspart (Novolog) 0-7 UNITS TIDWMEALS SQ Last administered on 01/12/17 17:06; Start 01/12/17 at 17:00; Stop 01/13/17 at 00:28; Status DC Dextrose 12.5 gm 12.5 gm PRN Q15MIN PRN IV SEE COMMENTS; Start 01/12/17 at 13: 30 Magnesium Sulfate/ Dextrose 50 ml @ 25 mls/hr 1X ONCE IV Last administered on 01/12/17 14:16; Start 01/12/17 at 14:00; Stop 01/12/17 at 15:59; Status DC Potassium Phosphate 10 mmol/ Sodium Chloride 103.3333 ml @ 51.667 m... 1X ONCE IV Last administered on 01/12/17 14:16; Start 01/12/17 at 14:00; Stop 07/21 at 15:59; Status DC Sodium Acetate/ Potassium Acetate/ Potassium Phosphate/ Magnesium Sulfate/ Calcium Gluconate/ Chromium/Copper/ Manganese/Seleni/ Zn/Total Parenteral Nutrition/Amino Acids/Dextrose/ Fat Emulsion Intravenous (Potassium Phosphate/ Calcium Gluconate/ Multitrace-5 Conc/ Tpn - Tpn Flu... 1,512 ml @ 63 mls/hr TPN CONT IV Last administered on 01/12/17 22:09; Start 01/12/17 at 22:00; Stop 01/13/17 at 21:59; Status DC Darbepoetin Luis (Aranesp) 60 mcg [id number] SQ Last administered on 01/12/17 22 :09; Start 01/12/17 at 21:00 Insulin Aspart 0-7 UNITS Q6HRS SQ Last administered on 01/16/17 06:17; Start 01/13/17 at 00:30 Piperacillin Sod/ Tazobactam Sod 3.375 gm/Sodium Chloride 50 ml @ 100 mls/hr Q8HRS IV Last administered on 01/13/17 12:07; Start 01/13/17 at 12:00; Stop at 12:55; Status DC Sodium Acetate 70 meq/Potassium Acetate 60 meq/ Potassium Phosphate 20 mmol/ Magnesium Sulfate 15 meq/Calcium Gluconate 10 meq/ Multivitamins 10 ml/Chromium / Copper/Manganese/ Seleni/Zn 1 ml/ Insulin Human Regular 15 unit/ Total Parenteral Nutrition/Amino Acids/Dextrose/ Fat Emulsion Intravenous 1,512 ml @ 63 mls/hr TPN CONT IV Last administered on 01/13/17 22:35; Start 01/13/17 at 22:00; Stop 01/14/17 at 21:59; Status DC Piperacillin Sod/ Tazobactam Sod/ Sodium Chloride (Zosyn/Iv Sodium Chloride 0.9 % 50ml) 50 ml @ 100 mls/hr Q6HRS IV Last administered on 01/16/17 05:52; Start 01/13/17 at 18:00 Metoprolol Tartrate (Lopressor) 5 mg Q6HRS IVP Last administered on 01/16/17 00:12; Start 01/13/17 at 18:00 Dextrose (Dextrose 50%-Water Syringe) 25 gm 1X ONCE IV ; Start 01/13/17 at 16: 45; Stop 01/13/17 at 16:46; Status DC Insulin Detemir 15 units 15 units QHS SQ Last administered on 01/14/17 21:41; Start 01/14/17 at 21:00 Sodium Acetate 70 meq/Potassium Acetate 45 meq/ Potassium Phosphate 20 mmol/ Magnesium Sulfate 15 meq/Calcium Gluconate 10 meq/ Multivitamins 10 ml/Chromium / Copper/Manganese/ Seleni/Zn 1 ml/ Total Parenteral Nutrition/Amino Acids/ Dextrose/ Fat Emulsion Intravenous 1,512 ml @ 63 mls/hr TPN CONT IV Last administered on 01/14/17 21:42; Start 01/14/17 at 22:00; Stop 01/15/17 at 21:59 ; Status DC Sodium Acetate 70 meq/Potassium Acetate 45 meq/ Potassium Phosphate 20 mmol/ Magnesium Sulfate 15 meq/Calcium Gluconate 10 meq/ Multivitamins 10 ml/Chromium / Copper/Manganese/ Seleni/Zn 1 ml/ Total Parenteral Nutrition/Amino Acids/ Dextrose/ Fat Emulsion Intravenous 1,512 ml @ 63 mls/hr TPN CONT IV Last administered on 01/15/17 22:22; Start 01/15/17 at 22:00; Stop 01/16/17 at 21:59 Sodium Acetate/ Potassium Acetate/ Potassium Phosphate/ Magnesium Sulfate/ Calcium Gluconate/ Multivitamins/ Chromium/Copper/ Manganese/Seleni/ Zn/Total Parenteral Nutrition/Amino Acids/Dextrose/ Fat Emulsion Intravenous (Potassium Phosphate/Calcium Gluconate/ Infuvite Wild... 1,512 ml @ 63 mls/hr TPN CONT IV ; Start 01/16/17 at 22:00; Stop 01/17/17 at 21:59 Active Scripts Active Reported Pred Forte (Prednisolone Acetate) 1 Ml Drops.susp 1 Ml OU BID PRN Visine Allergy Relief Drop (Tetrahydrozoline Hcl/Zn Sulf) 15 Ml Drops 1 Drop OU PRN Thera Tears (Carboxymethylcellulose Sodium) 15 Ml Drops 1 Drop OU PRN Jaime-128 (Sodium Chloride) 15 Ml Drops 1 Drop OU PRN Tramadol Hcl 100 Mg Tbmp.24hr 100 Mg PO Q6H PRN Tramadol Hcl 50 Mg Tablet 50 Mg PO Q6H PRN Zyrtec (Cetirizine Hcl) 10 Mg Tablet 10 Mg PO DAILY Nasacort (Triamcinolone Acetonide) 10.8 Ml [place] 2 Mon[place]ans NS DAILY Proair Hfa Inhaler (Albuterol Sulfate) 8.5 Gm Hfa.aer.ad 2 Puff INH QID Mucinex (Guaifenesin) 600 Mg Tablet.er 600 Mg PO Q8HRS PRN Levothyroxine Sodium 50 Mcg Tablet 50 Mcg PO DAILYAC Dyazide 37.5-25 Capsule (Triamterene/Hydrochlorothiazid) 1 Each Capsule 1 Cap PO DAILY Bystolic (Nebivolol) 5 Mg Tablet 5 Mg PO DAILY Vitals/I & O Vital Sign - Last 24 Hours 01/15/17 01/15/17 01/15/17 01/15/17 14:00 14:53 15:00 16:20 Temp 98.1 98.1 Pulse 81 84 83 Resp 28 24 18 B/P 149/60 146/60 151/54 Pulse Ox 94 94 95 94 O2 Delivery Nasal Cannula Nasal Cannula Nasal Cannula Room Air O2 Flow Rate 2.0 2.0 2.0 01/15/17 01/15/17 01/15/17 01/15/17 18:22 19:00 20:00 21:13 Temp 98.9 98.9 Pulse 83 80 Resp 18 B/P 159/58 161/54 Pulse Ox 98 97 O2 Delivery Nasal Cannula Nasal Cannula Nasal Cannula O2 Flow Rate 2.0 2.0 2.0 01/15/17 01/16/17 01/16/17 01/16/17 23:00 00:12 03:00 06:00 Temp 98.7 98.3 98.7 98.3 Pulse 86 83 52 Resp 18 18 B/P 149/56 149/56 147/53 149/49 Pulse Ox 97 94 O2 Delivery Nasal Cannula Nasal Cannula O2 Flow Rate 2.0 2.0 01/16/17 01/16/17 01/16/17 01/16/17 07:00 07:06 07:50 10:51 Temp 97.7 97.7 Pulse 87 Resp 18 B/P 138/52 Pulse Ox 93 90 95 O2 Delivery Nasal Cannula Nasal Cannula Nasal Cannula Nasal Cannula O2 Flow Rate 2.0 2.0 2.0 2.0 01/16/17 11:00 Temp 98.1 98.1 Pulse 83 Resp 18 B/P 157/50 Pulse Ox 98 O2 Delivery Nasal Cannula O2 Flow Rate 2.0 Intake and Output 01/15/17 01/15/17 01/16/17 15:00 23:00 07:00 Intake Total 1718 ml Output Total 1390 ml 445 ml 1310 ml Balance -1390 ml -445 ml 408 ml Problem List Problems Medical Problems: (1) Pancreatic mass Status: Acute Assessment Pancreatic cancer- S/p resection diet being advanced with resolution of post-op ileus, cpm, will reassess thursday TIFFANI PERES MD Jan 16, 2017 13:21
--- NOTE | 2017-01-16 13:25 | PDOC2 ---
PALLIATIVE CARE Palliative Care Note Palliative Care Spoke with Dr. Jenkins. Palliative Care Consult requested. Diagnosis: S/P Laparotomy for pancreatic mass. Off Vent. Patient alert. Ty son here visiting with patient. States she feels she is making improvement.Taking small sip of clear liquids. Rates pain at 2 on 0-10 scale. Plan is to transfer to [facility] when discharged. Will continue to follow until discharge. TALI HICKEY Jan 16, 2017 13:25
--- NOTE | 2017-01-16 18:40 | PDOC ---
PULMONARY PROGRESS NOTES Subjective extubated 01/14 Vitals Vital Signs Date Time Temp Pulse Resp B/P Pulse Ox O2 Delivery O2 Flow Rate FiO2 01/16/17 15:05 95 Nasal Cannula 2.0 01/16/17 15:00 97.5 83 18 158/61 97.5 General: Alert Lungs: Clear, Other (equal chest rise bilaterally. negative chest retractions) Cardiovascular: S1, S2 Abdomen: Other (dressiing in place) Neuro Exam: Alert Extremities: No Edema Skin: Warm, Dry Labs Laboratory Tests Test 01/14/17 21:36 01/14/17 23:02 01/15/17 05:47 01/15/17 05:48 Glucose (Fingerstick) 152mg/dL (70-99) 146mg/dL (70-99) 111mg/dL (70-99) White Blood Count 20.7x10^3/uL (4.0-11.0) Red Blood Count 2.87x10^6/uL (3.50-5.40) Hemoglobin 8.2g/dL (12.0-15.5) Hematocrit 25.1% (36.0-47.0) Mean Corpuscular Volume 88fL (79-100) Mean Corpuscular Hemoglobin 29pg (25-35) Mean Corpuscular Hemoglobin Concent 33g/dL (31-37) Red Cell Distribution Width 16.1% (11.5-14.5) Platelet Count 130x10^3/uL (140-400) Neutrophils (%) (Auto) 82% (31-73) Lymphocytes (%) (Auto) 6% (24-48) Monocytes (%) (Auto) 10% (0-9) Eosinophils (%) (Auto) 2% (0-3) Basophils (%) (Auto) 0% (0-3) Neutrophils # (Auto) 16.9x10^3uL (1.8-7.7) Lymphocytes # (Auto) 1.2x10^3/uL (1.0-4.8) Monocytes # (Auto) 2.1x10^3/uL (0.0-1.1) Eosinophils # (Auto) 0.4x10^3/uL (0.0-0.7) Basophils # (Auto) 0.1x10^3/uL (0.0-0.2) Sodium Level 143mmol/L (136-145) Potassium Level 4.3mmol/L (3.5-5.1) Chloride Level 110mmol/L (98-107) Carbon Dioxide Level 28mmol/L (21-32) Anion Gap 5 (6-14) Blood Urea Nitrogen 29mg/dL (7-20) Creatinine 1.1mg/dL (0.6-1.0) Estimated GFR (Cockcroft-Gault) 47.9 Glucose Level 120mg/dL (70-99) Calcium Level 7.4mg/dL (8.5-10.1) Phosphorus Level 3.6mg/dL (2.6-4.7) Test 01/15/17 12:32 01/15/17 18:15 01/15/17 23:51 01/16/17 04:00 Glucose (Fingerstick) 86mg/dL (70-99) 92mg/dL (70-99) 159mg/dL (70-99) Sodium Level 139mmol/L (136-145) Potassium Level 4.2mmol/L (3.5-5.1) Chloride Level 105mmol/L (98-107) Carbon Dioxide Level 28mmol/L (21-32) Anion Gap 6 (6-14) Blood Urea Nitrogen 25mg/dL (7-20) Creatinine 1.1mg/dL (0.6-1.0) Estimated GFR (Cockcroft-Gault) 47.9 Glucose Level 197mg/dL (70-99) Calcium Level 7.9mg/dL (8.5-10.1) Test 01/16/17 06:05 01/16/17 07:25 01/16/17 12:11 01/16/17 17:56 Glucose (Fingerstick) 179mg/dL (70-99) 208mg/dL (70-99) 211mg/dL (70-99) 173mg/dL (70-99) Laboratory Tests Test 01/15/17 23:51 01/16/17 04:00 01/16/17 06:05 01/16/17 07:25 Glucose (Fingerstick) 159mg/dL (70-99) 179mg/dL (70-99) 208mg/dL (70-99) Sodium Level 139mmol/L (136-145) Potassium Level 4.2mmol/L (3.5-5.1) Chloride Level 105mmol/L (98-107) Carbon Dioxide Level 28mmol/L (21-32) Anion Gap 6 (6-14) Blood Urea Nitrogen 25mg/dL (7-20) Creatinine 1.1mg/dL (0.6-1.0) Estimated GFR (Cockcroft-Gault) 47.9 Glucose Level 197mg/dL (70-99) Calcium Level 7.9mg/dL (8.5-10.1) Test 01/16/17 12:11 01/16/17 17:56 Glucose (Fingerstick) 211mg/dL (70-99) 173mg/dL (70-99) Medications Active Scripts Medications Dose Route/Sig Days Date Category Pred Forte (Prednisolone Acetate) 1 Ml Drops.susp 1 Ml OU BID PRN 01/09/17 Reported Visine Allergy Relief Drop (Tetrahydrozoline Hcl/Zn Sulf) 15 Ml Drops 1 Drop OU PRN 01/09/17 Reported Thera Tears (Carboxymethylcellulose Sodium) 15 Ml Drops 1 Drop OU PRN 01/09/17 Reported Jaime-128 (Sodium Chloride) 15 Ml Drops 1 Drop OU PRN 01/09/17 Reported Tramadol Hcl 100 Mg Tbmp.24hr 100 Mg PO Q6H PRN 01/08/17 Reported Tramadol Hcl 50 Mg Tablet 50 Mg PO Q6H PRN 01/08/17 Reported Zyrtec (Cetirizine Hcl) 10 Mg Tablet 10 Mg PO DAILY 01/08/17 Reported Nasacort (Triamcinolone Acetonide) 10.8 Ml [place] 2 [place] NS DAILY 01/08/17 Reported Proair Hfa Inhaler (Albuterol Sulfate) 8.5 Gm Hfa.aer.ad 2 Puff INH QID 01/08/17 Reported Mucinex (Guaifenesin) 600 Mg Tablet.er 600 Mg PO Q8HRS PRN 01/08/17 Reported Levothyroxine Sodium 50 Mcg Tablet 50 Mcg PO DAILYAC 01/08/17 Reported Dyazide 37.5-25 Capsule (Triamterene/Hydrochlorothiazid) 1 Each Capsule 1 Cap PO DAILY 01/08/17 Reported Bystolic (Nebivolol) 5 Mg Tablet 5 Mg PO DAILY 01/08/17 Reported Impression . extubated 01/14 1. Expected Acute respiratory failure following surgery 2. Abnormal CT of the chest, 3 mm left upper lobe nodule. 3. Pancreatic mass status post exploratory laparotomy, extensive lysis of adhesions, partial colectomy, extended small bowel resection, left nephrectomy, splenectomy, distal pancreatectomy, partial gastrectomy, liver biopsy and ileostomy. 4. Anemia. 5. Acute kidney injury. 6. Asthma. 7. History of hypertension. Plan . EXTUBATED 01/14 DOING WELL ADVANCE DIET HERMINIA KINGSLEY MD Jan 16, 2017 18:40
[2017-01-16] MEDS: INSULIN DETEMIR 300 UNITS/3 ML INSULN.PEN. SQ SCH (21:24)
[2017-01-16] MEDS ORDERED: [UNRECOGNIZED DRUG - OTHER] IV SCH ×10 (22:00)
[2017-01-16] MEDS ORDERED: AMINO ACIDS IV SCH ×10 (22:00)
[2017-01-16] MEDS ORDERED: TOTAL PARENTERAL NUTRITION IV SCH ×10 (22:00)
[2017-01-16] MEDS ORDERED: DEXTROSE 70% IV SCH ×10 (22:00)
[2017-01-17] MEDS: PIPERACILLIN/TAZOBACTAM 3.375 GM in IV NORMAL SALINE 50ML 50 ML IV SCH ×4 (00:16→17:59)
[2017-01-17] MEDS: METOPROLOL TARTRATE 5 MG/5 ML VIAL. IVP SCH ×4 (00:19→18:00)
[2017-01-17 03:29] VITALS: BP 151/49
[2017-01-17] MEDS: INSULIN ASPART 300 UNITS/3 ML INSULN.PEN SQ SCH ×4 (05:46→17:09)
[2017-01-17] MEDS: PANTOPRAZOLE IV PUSH 40 MG VIAL. IVP SCH (05:53)
[2017-01-17 05:54] LABS: BASO # 0.1 x10^3/uL (0.0-0.2); BASO % 0 % (0-3); EOS % 1 % (0-3); HEMATOCRIT 28.8 % (36.0-47.0); HEMOGLOBIN 9.6 g/dL (12.0-15.5); LYMPH # 1.1 x10^3/uL (1.0-4.8); LYMPH % 6 % (24-48); MEAN CORPUSCULAR HEMOGLOBIN 29 pg (25-35); MEAN CORPUSCULAR HGB CONC 33 g/dL (31-37); MEAN CORPUSCULAR VOLUME 86 fL (79-100); MONO % 9 % (0-9); NEUT % 84 % (31-73); PLATELET COUNT 200 x10^3/uL (140-400); RED BLOOD COUNT 3.35 x10^6/uL (3.50-5.40); RED CELL DISTRIBUTION WIDTH 15.1 % (11.5-14.5); WHITE BLOOD COUNT 17.3 x10^3/uL (4.0-11.0)
[2017-01-17 06:15] LABS: CALCIUM 7.8 mg/dL (8.5-10.1); CREATININE 1.1 mg/dL (0.6-1.0); GFR 47.9; MAGNESIUM 2.1 mg/dL (1.8-2.4); POTASSIUM 3.8 mmol/L (3.5-5.1)
[2017-01-17 07:00] VITALS: BP 155/73
[2017-01-17] MEDS: ALBUTEROL SULFATE 2.5 MG/3 ML NEBU. NEB SCH ×4 (07:08→18:04)
[2017-01-17] MEDS: DOCUSATE SODIUM 100 MG CAPSULE. PO SCH ×3 (09:00→21:51)
--- NOTE | 2017-01-17 09:15 | PDOC ---
PULMONARY PROGRESS NOTES Subjective extubated 01/14, on 02, has sob, is tired, no cough, no pain Vitals Vital Signs Date Time Temp Pulse Resp B/P Pulse Ox O2 Delivery O2 Flow Rate FiO2 01/17/17 07:10 86 Nasal Cannula 2.0 01/17/17 07:00 97.5 103 15 155/73 97.5 General: Alert Lungs: Crackles, Other (equal chest rise bilaterally. negative chest retractions) Cardiovascular: S1, S2 Abdomen: Soft, Non-tender, Other (dressiing in place) Neuro Exam: Alert Extremities: No Edema Skin: Warm, Dry Labs Laboratory Tests Test 01/15/17 12:32 01/15/17 18:15 01/15/17 23:51 01/16/17 04:00 Glucose (Fingerstick) 86mg/dL (70-99) 92mg/dL (70-99) 159mg/dL (70-99) Sodium Level 139mmol/L (136-145) Potassium Level 4.2mmol/L (3.5-5.1) Chloride Level 105mmol/L (98-107) Carbon Dioxide Level 28mmol/L (21-32) Anion Gap 6 (6-14) Blood Urea Nitrogen 25mg/dL (7-20) Creatinine 1.1mg/dL (0.6-1.0) Estimated GFR (Cockcroft-Gault) 47.9 Glucose Level 197mg/dL (70-99) Calcium Level 7.9mg/dL (8.5-10.1) Test 01/16/17 06:05 01/16/17 07:25 01/16/17 12:11 01/16/17 17:56 Glucose (Fingerstick) 179mg/dL (70-99) 208mg/dL (70-99) 211mg/dL (70-99) 173mg/dL (70-99) Test 01/16/17 21:17 01/17/17 00:22 01/17/17 05:20 01/17/17 05:44 Glucose (Fingerstick) 199mg/dL (70-99) 189mg/dL (70-99) 167mg/dL (70-99) White Blood Count 17.3x10^3/uL (4.0-11.0) Red Blood Count 3.35x10^6/uL (3.50-5.40) Hemoglobin 9.6g/dL (12.0-15.5) Hematocrit 28.8% (36.0-47.0) Mean Corpuscular Volume 86fL (79-100) Mean Corpuscular Hemoglobin 29pg (25-35) Mean Corpuscular Hemoglobin Concent 33g/dL (31-37) Red Cell Distribution Width 15.1% (11.5-14.5) Platelet Count 200x10^3/uL (140-400) Neutrophils (%) (Auto) 84% (31-73) Lymphocytes (%) (Auto) 6% (24-48) Monocytes (%) (Auto) 9% (0-9) Eosinophils (%) (Auto) 1% (0-3) Basophils (%) (Auto) 0% (0-3) Neutrophils # (Auto) 14.5x10^3uL (1.8-7.7) Lymphocytes # (Auto) 1.1x10^3/uL (1.0-4.8) Monocytes # (Auto) 1.5x10^3/uL (0.0-1.1) Eosinophils # (Auto) 0.1x10^3/uL (0.0-0.7) Basophils # (Auto) 0.1x10^3/uL (0.0-0.2) Sodium Level 137mmol/L (136-145) Potassium Level 3.8mmol/L (3.5-5.1) Chloride Level 102mmol/L (98-107) Carbon Dioxide Level 28mmol/L (21-32) Anion Gap 7 (6-14) Blood Urea Nitrogen 23mg/dL (7-20) Creatinine 1.1mg/dL (0.6-1.0) Estimated GFR (Cockcroft-Gault) 47.9 Glucose Level 150mg/dL (70-99) Calcium Level 7.8mg/dL (8.5-10.1) Phosphorus Level 4.0mg/dL (2.6-4.7) Magnesium Level 2.1mg/dL (1.8-2.4) Laboratory Tests Test 01/16/17 12:11 01/16/17 17:56 01/16/17 21:17 01/17/17 00:22 Glucose (Fingerstick) 211mg/dL (70-99) 173mg/dL (70-99) 199mg/dL (70-99) 189mg/dL (70-99) Test 01/17/17 05:20 01/17/17 05:44 White Blood Count 17.3x10^3/uL (4.0-11.0) Red Blood Count 3.35x10^6/uL (3.50-5.40) Hemoglobin 9.6g/dL (12.0-15.5) Hematocrit 28.8% (36.0-47.0) Mean Corpuscular Volume 86fL (79-100) Mean Corpuscular Hemoglobin 29pg (25-35) Mean Corpuscular Hemoglobin Concent 33g/dL (31-37) Red Cell Distribution Width 15.1% (11.5-14.5) Platelet Count 200x10^3/uL (140-400) Neutrophils (%) (Auto) 84% (31-73) Lymphocytes (%) (Auto) 6% (24-48) Monocytes (%) (Auto) 9% (0-9) Eosinophils (%) (Auto) 1% (0-3) Basophils (%) (Auto) 0% (0-3) Neutrophils # (Auto) 14.5x10^3uL (1.8-7.7) Lymphocytes # (Auto) 1.1x10^3/uL (1.0-4.8) Monocytes # (Auto) 1.5x10^3/uL (0.0-1.1) Eosinophils # (Auto) 0.1x10^3/uL (0.0-0.7) Basophils # (Auto) 0.1x10^3/uL (0.0-0.2) Sodium Level 137mmol/L (136-145) Potassium Level 3.8mmol/L (3.5-5.1) Chloride Level 102mmol/L (98-107) Carbon Dioxide Level 28mmol/L (21-32) Anion Gap 7 (6-14) Blood Urea Nitrogen 23mg/dL (7-20) Creatinine 1.1mg/dL (0.6-1.0) Estimated GFR (Cockcroft-Gault) 47.9 Glucose Level 150mg/dL (70-99) Calcium Level 7.8mg/dL (8.5-10.1) Phosphorus Level 4.0mg/dL (2.6-4.7) Magnesium Level 2.1mg/dL (1.8-2.4) Glucose (Fingerstick) 167mg/dL (70-99) Medications Active Scripts Medications Dose Route/Sig Days Date Category Pred Forte (Prednisolone Acetate) 1 Ml Drops.susp 1 Ml OU BID PRN 01/09/17 Reported Visine Allergy Relief Drop (Tetrahydrozoline Hcl/Zn Sulf) 15 Ml Drops 1 Drop OU PRN 01/09/17 Reported Thera Tears (Carboxymethylcellulose Sodium) 15 Ml Drops 1 Drop OU PRN 01/09/17 Reported Jaime-128 (Sodium Chloride) 15 Ml Drops 1 Drop OU PRN 01/09/17 Reported Tramadol Hcl 100 Mg Tbmp.24hr 100 Mg PO Q6H PRN 01/08/17 Reported Tramadol Hcl 50 Mg Tablet 50 Mg PO Q6H PRN 01/08/17 Reported Zyrtec (Cetirizine Hcl) 10 Mg Tablet 10 Mg PO DAILY 01/08/17 Reported Nasacort (Triamcinolone Acetonide) 10.8 Ml [place] 2 [place] NS DAILY 01/08/17 Reported Proair Hfa Inhaler (Albuterol Sulfate) 8.5 Gm Hfa.aer.ad 2 Puff INH QID 01/08/17 Reported Mucinex (Guaifenesin) 600 Mg Tablet.er 600 Mg PO Q8HRS PRN 01/08/17 Reported Levothyroxine Sodium 50 Mcg Tablet 50 Mcg PO DAILYAC 01/08/17 Reported Dyazide 37.5-25 Capsule (Triamterene/Hydrochlorothiazid) 1 Each Capsule 1 Cap PO DAILY 01/08/17 Reported Bystolic (Nebivolol) 5 Mg Tablet 5 Mg PO DAILY 01/08/17 Reported Impression . extubated 01/14 1. Expected Acute respiratory failure following surgery 2. Abnormal CT of the chest, 3 mm left upper lobe nodule. 3. Pancreatic mass status post exploratory laparotomy, extensive lysis of adhesions, partial colectomy, extended small bowel resection, left nephrectomy, splenectomy, distal pancreatectomy, partial gastrectomy, liver biopsy and ileostomy. 4. Anemia. 5. Acute kidney injury. 6. Asthma. 7. History of hypertension. Plan . EXTUBATED 01/14 DOING WELL ADVANCE DIET 02 TITRATION BRONCHODILATOR PT OT WILL SIGN OFF BUT AVAILABLE FOR ANY HELP ERMIAS OCHOA MD Jan 17, 2017 09:15
[2017-01-17] MEDS: FLUTICASONE 50MCG/NASAL SPRAY 16GM BOTTLE. NS SCH (09:27)
[2017-01-17] MEDS: CETIRIZINE HCL 10 MG TABLET. PO SCH (09:27)
[2017-01-17] MEDS: LEVOTHYROXINE SODIUM 25 MCG in IV NORMAL SALINE 50ML 5 ML IVP SCH (09:28)
[2017-01-17 10:50] VITALS: BP 146/68
--- NOTE | 2017-01-17 12:06 | PDOC ---
SURGICAL PROGRESS NOTE Subjective "tired" Vital Signs Vital Signs Date Time Temp Pulse Resp B/P Pulse Ox O2 Delivery O2 Flow Rate FiO2 01/17/17 10:50 97.7 106 18 146/68 93 Nasal Cannula 2.0 97.7 I&O Intake and Output 01/17/17 07:00 Intake Total 1314 ml Output Total 1835 ml Balance -521 ml Intake Oral 340 ml IV Total 974 ml Output Urine Total 1550 ml Stool Total 80 ml Drainage Total 205 ml PATIENT HAS A RDZ: Yes General: Other (communicates) HEENT: Other (pale) Abdomen: Soft, Other (right sided JANICE has egressed, no suction) Labs Laboratory Tests Test 01/15/17 12:32 01/15/17 18:15 01/15/17 23:51 01/16/17 04:00 Glucose (Fingerstick) 86mg/dL (70-99) 92mg/dL (70-99) 159mg/dL (70-99) Sodium Level 139mmol/L (136-145) Potassium Level 4.2mmol/L (3.5-5.1) Chloride Level 105mmol/L (98-107) Carbon Dioxide Level 28mmol/L (21-32) Anion Gap 6 (6-14) Blood Urea Nitrogen 25mg/dL (7-20) Creatinine 1.1mg/dL (0.6-1.0) Estimated GFR (Cockcroft-Gault) 47.9 Glucose Level 197mg/dL (70-99) Calcium Level 7.9mg/dL (8.5-10.1) Test 01/16/17 06:05 01/16/17 07:25 01/16/17 12:11 01/16/17 17:56 Glucose (Fingerstick) 179mg/dL (70-99) 208mg/dL (70-99) 211mg/dL (70-99) 173mg/dL (70-99) Test 01/16/17 21:17 01/17/17 00:22 01/17/17 05:20 01/17/17 05:44 Glucose (Fingerstick) 199mg/dL (70-99) 189mg/dL (70-99) 167mg/dL (70-99) White Blood Count 17.3x10^3/uL (4.0-11.0) Red Blood Count 3.35x10^6/uL (3.50-5.40) Hemoglobin 9.6g/dL (12.0-15.5) Hematocrit 28.8% (36.0-47.0) Mean Corpuscular Volume 86fL (79-100) Mean Corpuscular Hemoglobin 29pg (25-35) Mean Corpuscular Hemoglobin Concent 33g/dL (31-37) Red Cell Distribution Width 15.1% (11.5-14.5) Platelet Count 200x10^3/uL (140-400) Neutrophils (%) (Auto) 84% (31-73) Lymphocytes (%) (Auto) 6% (24-48) Monocytes (%) (Auto) 9% (0-9) Eosinophils (%) (Auto) 1% (0-3) Basophils (%) (Auto) 0% (0-3) Neutrophils # (Auto) 14.5x10^3uL (1.8-7.7) Lymphocytes # (Auto) 1.1x10^3/uL (1.0-4.8) Monocytes # (Auto) 1.5x10^3/uL (0.0-1.1) Eosinophils # (Auto) 0.1x10^3/uL (0.0-0.7) Basophils # (Auto) 0.1x10^3/uL (0.0-0.2) Sodium Level 137mmol/L (136-145) Potassium Level 3.8mmol/L (3.5-5.1) Chloride Level 102mmol/L (98-107) Carbon Dioxide Level 28mmol/L (21-32) Anion Gap 7 (6-14) Blood Urea Nitrogen 23mg/dL (7-20) Creatinine 1.1mg/dL (0.6-1.0) Estimated GFR (Cockcroft-Gault) 47.9 Glucose Level 150mg/dL (70-99) Calcium Level 7.8mg/dL (8.5-10.1) Phosphorus Level 4.0mg/dL (2.6-4.7) Magnesium Level 2.1mg/dL (1.8-2.4) Laboratory Tests Test 01/16/17 12:11 01/16/17 17:56 01/16/17 21:17 01/17/17 00:22 Glucose (Fingerstick) 211mg/dL (70-99) 173mg/dL (70-99) 199mg/dL (70-99) 189mg/dL (70-99) Test 01/17/17 05:20 01/17/17 05:44 White Blood Count 17.3x10^3/uL (4.0-11.0) Red Blood Count 3.35x10^6/uL (3.50-5.40) Hemoglobin 9.6g/dL (12.0-15.5) Hematocrit 28.8% (36.0-47.0) Mean Corpuscular Volume 86fL (79-100) Mean Corpuscular Hemoglobin 29pg (25-35) Mean Corpuscular Hemoglobin Concent 33g/dL (31-37) Red Cell Distribution Width 15.1% (11.5-14.5) Platelet Count 200x10^3/uL (140-400) Neutrophils (%) (Auto) 84% (31-73) Lymphocytes (%) (Auto) 6% (24-48) Monocytes (%) (Auto) 9% (0-9) Eosinophils (%) (Auto) 1% (0-3) Basophils (%) (Auto) 0% (0-3) Neutrophils # (Auto) 14.5x10^3uL (1.8-7.7) Lymphocytes # (Auto) 1.1x10^3/uL (1.0-4.8) Monocytes # (Auto) 1.5x10^3/uL (0.0-1.1) Eosinophils # (Auto) 0.1x10^3/uL (0.0-0.7) Basophils # (Auto) 0.1x10^3/uL (0.0-0.2) Sodium Level 137mmol/L (136-145) Potassium Level 3.8mmol/L (3.5-5.1) Chloride Level 102mmol/L (98-107) Carbon Dioxide Level 28mmol/L (21-32) Anion Gap 7 (6-14) Blood Urea Nitrogen 23mg/dL (7-20) Creatinine 1.1mg/dL (0.6-1.0) Estimated GFR (Cockcroft-Gault) 47.9 Glucose Level 150mg/dL (70-99) Calcium Level 7.8mg/dL (8.5-10.1) Phosphorus Level 4.0mg/dL (2.6-4.7) Magnesium Level 2.1mg/dL (1.8-2.4) Glucose (Fingerstick) 167mg/dL (70-99) Problem List Problems Medical Problems: (1) Pancreatic mass Status: Acute Assessment/Plan POD 7 continue supportive care Problems: JAMES CHUNG MD Jan 17, 2017 12:06
[2017-01-17] MEDS: IV NORMAL SALINE 1000ML BAG 1,000 ML IV SCH (12:21)
[2017-01-17] MEDS: OXYCODONE IR 5 MG TABLET. PO PRN ×2 (12:29→16:47)
[2017-01-17] MEDS: TPN PER PHARMACY MC PRN (12:47)
--- NOTE | 2017-01-17 14:39 | PDOC ---
PROGRESS NOTES Chief Complaint Chief Complaint Pancreatic mass w/obstruction s/p palliative resection on 01/[address] Jenkins Acute blood loss Anemia: acute blood loss. Leukocytosis Thrombocytopenia Coagulopathy SIRS DM FREDIS HTN asthma History of Present Illness History of Present Illness Patient seen and evaluated at bedside. Patient sitting up right in chair, in no apparent distress. Patient states she feels "tired" and that the O2 through the nasal cannula is burning her nares. d/w nurse. Vitals Vitals Vital Signs Date Time Temp Pulse Resp B/P Pulse Ox O2 Delivery O2 Flow Rate FiO2 01/17/17 13:42 Room Air 01/17/17 12:29 3.0 01/17/17 12:20 106 146/68 01/17/17 10:50 97.7 18 93 97.7 Physical Exam General: Alert, Cooperative, No acute distress, Other Heart: Regular rate, Normal S1, Normal S2 Lungs: Clear, Other (equal chest rise bilaterally. negative chest retractions) Abdomen: Soft, Other (right sided JANICE has egressed, no suction.) Extremities: No clubbing, No cyanosis, No edema Skin: No rashes, No significant lesion, Other (dressing clean, dry, and intact. ) Labs LABS Laboratory Tests Test 01/16/17 17:56 01/16/17 21:17 01/17/17 00:22 01/17/17 05:20 Glucose (Fingerstick) 173mg/dL (70-99) 199mg/dL (70-99) 189mg/dL (70-99) White Blood Count 17.3x10^3/uL (4.0-11.0) Red Blood Count 3.35x10^6/uL (3.50-5.40) Hemoglobin 9.6g/dL (12.0-15.5) Hematocrit 28.8% (36.0-47.0) Mean Corpuscular Volume 86fL (79-100) Mean Corpuscular Hemoglobin 29pg (25-35) Mean Corpuscular Hemoglobin Concent 33g/dL (31-37) Red Cell Distribution Width 15.1% (11.5-14.5) Platelet Count 200x10^3/uL (140-400) Neutrophils (%) (Auto) 84% (31-73) Lymphocytes (%) (Auto) 6% (24-48) Monocytes (%) (Auto) 9% (0-9) Eosinophils (%) (Auto) 1% (0-3) Basophils (%) (Auto) 0% (0-3) Neutrophils # (Auto) 14.5x10^3uL (1.8-7.7) Lymphocytes # (Auto) 1.1x10^3/uL (1.0-4.8) Monocytes # (Auto) 1.5x10^3/uL (0.0-1.1) Eosinophils # (Auto) 0.1x10^3/uL (0.0-0.7) Basophils # (Auto) 0.1x10^3/uL (0.0-0.2) Sodium Level 137mmol/L (136-145) Potassium Level 3.8mmol/L (3.5-5.1) Chloride Level 102mmol/L (98-107) Carbon Dioxide Level 28mmol/L (21-32) Anion Gap 7 (6-14) Blood Urea Nitrogen 23mg/dL (7-20) Creatinine 1.1mg/dL (0.6-1.0) Estimated GFR (Cockcroft-Gault) 47.9 Glucose Level 150mg/dL (70-99) Calcium Level 7.8mg/dL (8.5-10.1) Phosphorus Level 4.0mg/dL (2.6-4.7) Magnesium Level 2.1mg/dL (1.8-2.4) Test 01/17/17 05:44 01/17/17 12:22 Glucose (Fingerstick) 167mg/dL (70-99) 176mg/dL (70-99) Review of Systems Review of Systems (+) generalized weakness Denies chest pain, sob, abdominal pain, n/v/d, or fever/chills. Assessment and Plan Assessmemt and Plan Problems Medical Problems: (1) Pancreatic mass Status: Acute Assessment: 1. s/p palliative resection on 01/[address] Jenkins; ostomy in placed 2. Pancreas CA w/ liver mets: awaiting path confirmation. Dr Mckeon following 3. Anemia: acute blood loss. fairly stable s/p transfusion of PRBC x10, FFP x6, cryo x1, plts x2. 4. Leukocytosis: unchanged, reactive. Blood cult NGTD. 5. Thrombocytopenia resolving. 6. Coagulopathy: severe hypofibrinogenemia post op, recovered; monitor. 7. SIRS: 2/2 above 8. Acute respiratory failure: intubated for OR; subsequent ARDS. sucessfully extubated. 9. Nutrition: currently on TPN 10. DM 11. FREDIS: resolved. monitor 13. Prophylaxis: PPI. Lovenox on hold with massive bleed. pt prob high risk for DVTs with malignancy Plan: 1.) continue wound care 2.) continue TPN 3.) SSI with glucose monitoring 4.) continue zosyn for empiric coverage 5.) appreciate subspecialty input 6.) recheck AM labs; monitor H&H, transfuse for Hgb<7 7.) PT/OT 8.) consult social services director for SNU evaluation 9.) continue discharge planning to select (requested by family). 10.) f/u blood cultures; NGTD 11.) GI ppx: pepcid. DVT ppx: SCDs. hold lovenox due to coagulopathy Problems: Comment Review of Relevant I have reviewed the following items [place] (where applicable) has been applied. Labs Laboratory Tests Test 01/15/17 18:15 01/15/17 23:51 01/16/17 04:00 01/16/17 06:05 Glucose (Fingerstick) 92mg/dL (70-99) 159mg/dL (70-99) 179mg/dL (70-99) Sodium Level 139mmol/L (136-145) Potassium Level 4.2mmol/L (3.5-5.1) Chloride Level 105mmol/L (98-107) Carbon Dioxide Level 28mmol/L (21-32) Anion Gap 6 (6-14) Blood Urea Nitrogen 25mg/dL (7-20) Creatinine 1.1mg/dL (0.6-1.0) Estimated GFR (Cockcroft-Gault) 47.9 Glucose Level 197mg/dL (70-99) Calcium Level 7.9mg/dL (8.5-10.1) Test 01/16/17 07:25 01/16/17 12:11 01/16/17 17:56 01/16/17 21:17 Glucose (Fingerstick) 208mg/dL (70-99) 211mg/dL (70-99) 173mg/dL (70-99) 199mg/dL (70-99) Test 01/17/17 00:22 01/17/17 05:20 01/17/17 05:44 01/17/17 12:22 Glucose (Fingerstick) 189mg/dL (70-99) 167mg/dL (70-99) 176mg/dL (70-99) White Blood Count 17.3x10^3/uL (4.0-11.0) Red Blood Count 3.35x10^6/uL (3.50-5.40) Hemoglobin 9.6g/dL (12.0-15.5) Hematocrit 28.8% (36.0-47.0) Mean Corpuscular Volume 86fL (79-100) Mean Corpuscular Hemoglobin 29pg (25-35) Mean Corpuscular Hemoglobin Concent 33g/dL (31-37) Red Cell Distribution Width 15.1% (11.5-14.5) Platelet Count 200x10^3/uL (140-400) Neutrophils (%) (Auto) 84% (31-73) Lymphocytes (%) (Auto) 6% (24-48) Monocytes (%) (Auto) 9% (0-9) Eosinophils (%) (Auto) 1% (0-3) Basophils (%) (Auto) 0% (0-3) Neutrophils # (Auto) 14.5x10^3uL (1.8-7.7) Lymphocytes # (Auto) 1.1x10^3/uL (1.0-4.8) Monocytes # (Auto) 1.5x10^3/uL (0.0-1.1) Eosinophils # (Auto) 0.1x10^3/uL (0.0-0.7) Basophils # (Auto) 0.1x10^3/uL (0.0-0.2) Sodium Level 137mmol/L (136-145) Potassium Level 3.8mmol/L (3.5-5.1) Chloride Level 102mmol/L (98-107) Carbon Dioxide Level 28mmol/L (21-32) Anion Gap 7 (6-14) Blood Urea Nitrogen 23mg/dL (7-20) Creatinine 1.1mg/dL (0.6-1.0) Estimated GFR (Cockcroft-Gault) 47.9 Glucose Level 150mg/dL (70-99) Calcium Level 7.8mg/dL (8.5-10.1) Phosphorus Level 4.0mg/dL (2.6-4.7) Magnesium Level 2.1mg/dL (1.8-2.4) Laboratory Tests Test 01/16/17 17:56 01/16/17 21:17 01/17/17 00:22 01/17/17 05:20 Glucose (Fingerstick) 173mg/dL (70-99) 199mg/dL (70-99) 189mg/dL (70-99) White Blood Count 17.3x10^3/uL (4.0-11.0) Red Blood Count 3.35x10^6/uL (3.50-5.40) Hemoglobin 9.6g/dL (12.0-15.5) Hematocrit 28.8% (36.0-47.0) Mean Corpuscular Volume 86fL (79-100) Mean Corpuscular Hemoglobin 29pg (25-35) Mean Corpuscular Hemoglobin Concent 33g/dL (31-37) Red Cell Distribution Width 15.1% (11.5-14.5) Platelet Count 200x10^3/uL (140-400) Neutrophils (%) (Auto) 84% (31-73) Lymphocytes (%) (Auto) 6% (24-48) Monocytes (%) (Auto) 9% (0-9) Eosinophils (%) (Auto) 1% (0-3) Basophils (%) (Auto) 0% (0-3) Neutrophils # (Auto) 14.5x10^3uL (1.8-7.7) Lymphocytes # (Auto) 1.1x10^3/uL (1.0-4.8) Monocytes # (Auto) 1.5x10^3/uL (0.0-1.1) Eosinophils # (Auto) 0.1x10^3/uL (0.0-0.7) Basophils # (Auto) 0.1x10^3/uL (0.0-0.2) Sodium Level 137mmol/L (136-145) Potassium Level 3.8mmol/L (3.5-5.1) Chloride Level 102mmol/L (98-107) Carbon Dioxide Level 28mmol/L (21-32) Anion Gap 7 (6-14) Blood Urea Nitrogen 23mg/dL (7-20) Creatinine 1.1mg/dL (0.6-1.0) Estimated GFR (Cockcroft-Gault) 47.9 Glucose Level 150mg/dL (70-99) Calcium Level 7.8mg/dL (8.5-10.1) Phosphorus Level 4.0mg/dL (2.6-4.7) Magnesium Level 2.1mg/dL (1.8-2.4) Test 01/17/17 05:44 01/17/17 12:22 Glucose (Fingerstick) 167mg/dL (70-99) 176mg/dL (70-99) Microbiology 01/13/17 Blood Culture - Preliminary, Resulted NO GROWTH AFTER 4 DAYS Medications Current Medications Sodium Chloride (Iv Sodium Chloride 0.45%) 1,000 ml @ 80 mls/hr [id number] IV Last administered on 01/08/17 22:17; Start 01/08/17 at 21:03; Stop 01/09/17 at 09: 23; Status DC Ondansetron HCl (Zofran) 4 mg PRN Q6HRS PRN IV NAUSEA/VOMITING Last administered on 01/09/17 15:51; Start 01/08/17 at 21:15; Stop 01/10/17 at 17:41; Status DC Prochlorperazine Edisylate (Compazine) 10 mg PRN Q6HRS PRN IV NAUSEA/VOMITING; Start 01/08/17 at 21:15 Prochlorperazine (Compazine) 25 mg PRN Q12HR PRN NM NAUSEA/VOMITING; Start 01/08 at 21:15 Al Hydroxide/Mg Hydroxide (Mylanta Plus Xs) 30 ml PRN Q3HRS PRN PO HEARTBURN / GAS; Start 01/08/17 at 21:15 Calcium Carbonate/ Glycine (Tums) 500 mg PRN Q3HRS PRN PO UPSET STOMACH; Start 01/08/17 at 21:15; Stop 01/08/17 at 21:20; Status DC Oxycodone HCl (Roxicodone) 5 mg PRN Q3HRS PRN PO BREAKTHROUGH PAIN Last administered on 01/17/17 12:29; Start 01/08/17 at 21:15 Morphine Sulfate 1 mg PRN Q2HR PRN IV PAIN Last administered on 01/10/17 08:51 ; Start 01/08/17 at 21:15; Stop 01/11/17 at 08:13; Status DC Acetaminophen (Tylenol) 650 mg PRN Q6HRS PRN PO MILD PAIN / TEMP; Start at 21:15 Docusate Sodium (Colace) 100 mg BID PO Last administered on 01/16/17 21:15; Start 01/08/17 at 22:00 Magnesium Hydroxide (Milk Of Magnesia) 2,400 mg PRN Q12HR PRN PO CONSTIPATION; Start 01/08/17 at 21:15 Bisacodyl (Dulcolax Supp) 10 mg PRN DAILY PRN NM CONSTIPATION; Start 01/08/17 at 21:15 Enoxaparin Sodium (Lovenox 40mg Syringe) 40 mg Q24H SQ ; Start 01/08/17 at 22:00 ; Stop 01/08/17 at 22:00; Status DC Pantoprazole Sodium (Protonix Vial) 40 mg DAILYAC IVP Last administered on 01/17 05:53; Start 01/09/17 at 07:30 Enoxaparin Sodium 30 mg 30 mg Q24H SQ Last administered on 01/08/17 22:20; Start 01/08/17 at 22:00; Stop 01/09/17 at 09:24; Status DC Cefoxitin Sodium (Mefoxin 2gm Ivpb For Omni) 100 ml @ 200 mls/hr 1X PERIOP IV ; Start 01/09/17 at 08:45; Stop 01/10/17 at 11:49; Status DC Cetirizine HCl (Zyrtec) 10 mg DAILY PO Last administered on 01/17/17 09:27; Start 01/09/17 at 10:30 Guaifenesin (Mucinex) 600 mg PRN Q8HRS PRN PO CONGESTION; Start 01/09/17 at 09: 30 Levothyroxine Sodium (Synthroid) 50 mcg DAILYAC PO Last administered on 10:27; Start 01/09/17 at 10:30; Stop 01/11/17 at 08:19; Status DC Tramadol HCl (Ultram) 50 mg PRN Q6HRS PRN PO PAIN; Start 01/09/17 at 09:30 Non-Formulary Medication 2 puff QID INH ; Start 01/09/17 at 13:00; Status UNV Metoprolol Tartrate (Lopressor) 25 mg BID PO Last administered on 01/11/17 21: 38; Start 01/09/17 at 10:30; Stop 01/13/17 at 14:20; Status DC Fluticasone Propionate 2 spray 2 spray DAILY NS Last administered on 01/09/17 10:28; Start 01/09/17 at 10:30; Stop 01/09/17 at 13:10; Status DC Amino Acids/ Electrolytes/ Dextrose (Clinimix E 4.25%-5% Solution) 1,000 ml @ 80 mls/hr [id number] IV Last administered on 01/10/17 01:00; Start 01/09/17 at 10: 30; Stop 01/11/17 at 21:59; Status DC Enoxaparin Sodium (Lovenox 30mg Syringe) 30 mg Q24H SQ ; Start 01/09/17 at 10:00 ; Stop 01/09/17 at 10:00; Status DC Enoxaparin Sodium (Lovenox 30mg Syringe) 30 mg 1X ONCE SQ ; Start 01/09/17 at 10 :00; Stop 01/09/17 at 10:00; Status DC Enoxaparin Sodium (Lovenox 30mg Syringe) 30 mg Q24H SQ ; Start 01/10/17 at 21:00 ; Stop 01/11/17 at 09:42; Status DC Albuterol Sulfate (Ventolin Neb Soln) 2.5 mg RTQID NEB Last administered on 10:48; Start 01/09/17 at 12:00 Fluticasone Propionate (Flonase) 2 spray DAILY NS Last administered on 09:27; Start 01/09/17 at 13:10 Ondansetron HCl (Zofran) 4 mg PRN Q6HRS PRN IV NAUSEA/VOMITING; Start 01/10/17 at 07:30; Stop 01/10/17 at 18:00; Status DC Fentanyl Citrate (Fentanyl 2ml Vial) 25 mcg PRN Q5MIN PRN IV MILD PAIN; Start 01/10/17 at 07:30; Stop 01/10/17 at 18:00; Status DC Fentanyl Citrate 50 mcg 50 mcg PRN Q5MIN PRN IV MODERATE PAIN; Start 01/10/17 at 07:30; Stop 01/10/17 at 18:00; Status DC Lactated Ringer's (Iv Lactated Ringers) 1,000 ml @ 30 mls/hr Q24H IV ; Start at 07:28; Stop 01/10/17 at 19:27; Status DC Prochlorperazine Edisylate (Compazine) 5 mg PACU PRN PRN IV NAUSEA, MRX1; Start 01/10/17 at 07:30; Stop 01/10/17 at 18:00; Status DC Desflurane (Suprane) 90 ml STK-MED ONCE IH ; Start 01/10/17 at 09:03; Stop at 09:04; Status DC Fentanyl Citrate (Fentanyl 2ml Vial) 100 mcg STK-MED ONCE .ROUTE ; Start at 09:03; Stop 01/10/17 at 09:04; Status DC Rocuronium Gilbert 50 mg 50 mg STK-MED ONCE .ROUTE ; Start 01/10/17 at 09:03; Stop 01/10/17 at 09:04; Status DC Propofol (Diprivan) 20 ml @ As Directed STK-MED ONCE IV ; Start 01/10/17 at 09:04 ; Stop 01/10/17 at 09:05; Status DC Ondansetron HCl (Zofran) 4 mg STK-MED ONCE .ROUTE ; Start 01/10/17 at 09:04; Stop 01/10/17 at 09:05; Status DC Dexamethasone Sodium Phosphate (Decadron) 20 mg STK-MED ONCE .ROUTE ; Start 01/10 at 09:04; Stop 01/10/17 at 09:05; Status DC Lidocaine HCl (Lidocaine HCl 2% Abboject) 100 mg STK-MED ONCE .ROUTE ; Start 01/10/17 at 09:04; Stop 01/10/17 at 09:05; Status DC Phenylephrine HCl (Rodrigue-Synephrine Inj) 10 mg STK-MED ONCE .ROUTE ; Start at 09:27; Stop 01/10/17 at 09:28; Status DC Fentanyl Citrate (Fentanyl 5ml Vial) 250 mcg STK-MED ONCE .ROUTE ; Start at 10:17; Stop 01/10/17 at 10:18; Status DC Rocuronium Gilbert 50 mg 50 mg STK-MED ONCE .ROUTE ; Start 01/10/17 at 10:26; Stop 01/10/17 at 10:27; Status DC Albumin Human (Plasmanate) 500 ml @ As Directed STK-MED ONCE IV ; Start at 11:32; Stop 01/10/17 at 11:33; Status DC Lorazepam (Ativan) 2 mg STK-MED ONCE .ROUTE ; Start 01/10/17 at 11:38; Stop at 11:39; Status DC Cellulose 1 each 1 each STK-MED ONCE .ROUTE Last administered on 01/10/17 10:23 ; Start 01/10/17 at 12:09; Stop 01/10/17 at 12:10; Status DC Albumin Human (Plasmanate) 500 ml @ As Directed STK-MED ONCE IV ; Start at 12:14; Stop 01/10/17 at 12:15; Status DC Phenylephrine HCl (Rodrigue-Synephrine Inj) 10 mg STK-MED ONCE .ROUTE ; Start at 12:14; Stop 01/10/17 at 12:15; Status DC Cellulose 1 each STK-MED ONCE .ROUTE Last administered on 01/10/17 10:23; Start 01/10/17 at 12:46; Stop 01/10/17 at 12:47; Status DC Lorazepam (Ativan) 2 mg STK-MED ONCE .ROUTE ; Start 01/10/17 at 12:47; Stop at 12:48; Status DC Phenylephrine HCl (Rodrigue-Synephrine Inj) 10 mg STK-MED ONCE .ROUTE ; Start at 12:55; Stop 01/10/17 at 12:56; Status DC Vasopressin (Vasostrict) 20 unit STK-MED ONCE .ROUTE ; Start 01/10/17 at 12:58; Stop 01/10/17 at 12:59; Status DC Norepinephrine Bitartrate (Levophed Vial) 4 mg STK-MED ONCE IV ; Start 01/10/17 at 13:00; Stop 01/10/17 at 13:01; Status DC Norepinephrine Bitartrate (Levophed Vial) 4 mg STK-MED ONCE IV ; Start 01/10/17 at 13:00; Stop 01/10/17 at 13:01; Status DC Rocuronium Gilbert (Zemuron) 50 mg STK-MED ONCE .ROUTE ; Start 01/10/17 at 13:30 ; Stop 01/10/17 at 13:31; Status DC Famotidine (Pepcid) 20 mg QHS IVP ; Start 01/10/17 at 21:00; Stop 01/11/17 at 08: 15; Status DC Sodium Chloride 3 ml 3 ml QSHIFT PRN IV AFTER MEDS AND BLOOD DRAWS; Start at 13:45; Stop 01/12/17 at 14:37; Status DC Lactated Ringer's (Iv Lactated Ringers) 1,000 ml @ 100 mls/hr Q10H IV Last administered on 01/12/17 05:17; Start 01/10/17 at 13:43; Stop 01/12/17 at 13:21 ; Status DC Morphine Sulfate 1 mg PRN Q1HR PRN IV PAIN Last administered on 01/16/17 13:18 ; Start 01/10/17 at 13:45 Ondansetron HCl (Zofran) 4 mg PRN Q6HRS PRN IV NAUESA, 1ST CHOICE Last administered on 01/16/17 00:22; Start 01/10/17 at 13:45 Cellulose 2 each STK-MED ONCE TP Last administered on 01/10/17 10:23; Start 01/10/17 at 10:23; Stop 01/10/17 at 14:25; Status DC Lorazepam (Ativan) 2 mg STK-MED ONCE .ROUTE ; Start 01/10/17 at 20:59; Stop at 21:00; Status DC Rocuronium Gilbert 50 mg 50 mg STK-MED ONCE .ROUTE ; Start 01/10/17 at 21:30; Stop 01/10/17 at 21:31; Status DC Cefoxitin Sodium (Mefoxin 2gm Ivpb For Omni) 100 ml @ As Directed STK-MED ONCE IV ; Start 01/10/17 at 21:45; Stop 01/10/17 at 21:46; Status DC Cellulose 1 each STK-MED ONCE .ROUTE Last administered on 01/10/17 21:47; Start 01/10/17 at 21:48; Stop 01/10/17 at 21:49; Status DC Cellulose 2 each STK-MED ONCE TP Last administered on 01/10/17 21:47; Start 01/10/17 at 21:47; Stop 01/10/17 at 22:14; Status DC Sodium Chloride 3 ml 3 ml QSHIFT PRN IV AFTER MEDS AND BLOOD DRAWS; Start at 22:30 Fentanyl Citrate 30 ml @ 0 mls/hr CONT PRN IV PROTOCOL Last administered on 07:44; Start 01/10/17 at 22:30; Stop 01/16/17 at 11:23; Status DC Propofol (Diprivan) 100 ml @ 0 mls/hr CONT PRN IV PER PROTOCOL Last administered on 01/13/17 18:39; Start 01/10/17 at 22:30; Stop 01/16/17 at 11:12 ; Status DC Chlorhexidine Gluconate 15 ml 15 ml BID MM Last administered on 01/15/17 20:49 ; Start 01/11/17 at 09:00; Stop 01/16/17 at 11:22; Status DC Sodium Chloride 1,000 ml @ 1,000 mls/hr 1X ONCE IV Last administered on 02:30; Start 01/11/17 at 02:30; Stop 01/11/17 at 03:29; Status DC Levothyroxine Sodium 25 mcg/ Sodium Chloride 5 ml @ 100 mls/hr DAILY IVP Last administered on 01/17/17 09:28; Start 01/11/17 at 09:00 Sodium Chloride (Iv Sodium Chloride 0.9% 500ml Bag) 500 ml @ 500 mls/hr 1X ONCE IV Last administered on 01/11/17 09:45; Start 01/11/17 at 09:45; Stop at 10:44; Status DC Heparin Sodium (Porcine) 5,000 unit Q8HRS SQ ; Start 01/11/17 at 14:00; Stop 01/11 at 16:45; Status DC Info 1 each 1 each PRN DAILY PRN MC SEE COMMENTS Last administered on 12:47; Start 01/11/17 at 10:15 Norepinephrine Bitartrate 8 mg/ Sodium Chloride 258 ml @ 0 mls/hr CONT PRN IV SEE I/O RECORD Last administered on 01/11/17 12:58; Start 01/11/17 at 11:15; Stop 01/16/17 at 11:22; Status DC Lactated Ringer's 500 ml @ 500 mls/hr PRN Q2HRS PRN IV HYPOTENTION; Start 01/11 at 13:15 Sodium Chloride 500 ml @ 500 mls/hr PRN Q2HR PRN IV hypotention; Start at 13:15 Sodium Acetate/ Potassium Acetate/ Potassium Phosphate/ Magnesium Sulfate/ Calcium Gluconate/ Chromium/Copper/ Manganese/Seleni/ Zn/Total Parenteral Nutrition/Amino Acids/Dextrose/ Fat Emulsion Intravenous (Potassium Phosphate/ Calcium Gluconate/ Multitrace-5 Conc/ Tpn - Tpn Flu... 1,512 ml @ 63 mls/hr TPN CONT IV Last administered on 01/11/17 21:39; Start 01/11/17 at 22:00; Stop 01/12/17 at 21:59; Status DC Info 1 each PRN DAILY PRN MC SEE COMMENTS; Start 01/11/17 at 13:45; Status UNV Cefoxitin Sodium 4 gm 4 gm STK-MED ONCE IV ; Start 01/10/17 at 12:00; Stop at 08:16; Status DC Sodium Chloride (Iv Sodium Chloride 0.9% 1000ml Bag) 1,000 ml @ 60 mls/hr [id number] IV Last administered on 01/17/17 12:21; Start 01/12/17 at 13:15 Insulin Aspart (Novolog) 0-7 UNITS TIDWMEALS SQ Last administered on 01/12/17 17:06; Start 01/12/17 at 17:00; Stop 01/13/17 at 00:28; Status DC Dextrose 12.5 gm 12.5 gm PRN Q15MIN PRN IV SEE COMMENTS; Start 01/12/17 at 13: 30 Magnesium Sulfate/ Dextrose 50 ml @ 25 mls/hr 1X ONCE IV Last administered on 01/12/17 14:16; Start 01/12/17 at 14:00; Stop 01/12/17 at 15:59; Status DC Potassium Phosphate 10 mmol/ Sodium Chloride 103.3333 ml @ 51.667 m... 1X ONCE IV Last administered on 01/12/17 14:16; Start 01/12/17 at 14:00; Stop 07/21 at 15:59; Status DC Sodium Acetate/ Potassium Acetate/ Potassium Phosphate/ Magnesium Sulfate/ Calcium Gluconate/ Chromium/Copper/ Manganese/Seleni/ Zn/Total Parenteral Nutrition/Amino Acids/Dextrose/ Fat Emulsion Intravenous (Potassium Phosphate/ Calcium Gluconate/ Multitrace-5 Conc/ Tpn - Tpn Flu... 1,512 ml @ 63 mls/hr TPN CONT IV Last administered on 01/12/17 22:09; Start 01/12/17 at 22:00; Stop 01/13/17 at 21:59; Status DC Darbepoetin Luis (Aranesp) 60 mcg [id number] SQ Last administered on 01/12/17 22 :09; Start 01/12/17 at 21:00 Insulin Aspart 0-7 UNITS Q6HRS SQ Last administered on 01/17/17 12:34; Start 01/13/17 at 00:30 Piperacillin Sod/ Tazobactam Sod 3.375 gm/Sodium Chloride 50 ml @ 100 mls/hr Q8HRS IV Last administered on 01/13/17 12:07; Start 01/13/17 at 12:00; Stop at 12:55; Status DC Sodium Acetate 70 meq/Potassium Acetate 60 meq/ Potassium Phosphate 20 mmol/ Magnesium Sulfate 15 meq/Calcium Gluconate 10 meq/ Multivitamins 10 ml/Chromium / Copper/Manganese/ Seleni/Zn 1 ml/ Insulin Human Regular 15 unit/ Total Parenteral Nutrition/Amino Acids/Dextrose/ Fat Emulsion Intravenous 1,512 ml @ 63 mls/hr TPN CONT IV Last administered on 01/13/17 22:35; Start 01/13/17 at 22:00; Stop 01/14/17 at 21:59; Status DC Piperacillin Sod/ Tazobactam Sod/ Sodium Chloride (Zosyn/Iv Sodium Chloride 0.9 % 50ml) 50 ml @ 100 mls/hr Q6HRS IV Last administered on 01/17/17 12:21; Start 01/13/17 at 18:00 Metoprolol Tartrate (Lopressor) 5 mg Q6HRS IVP Last administered on 01/17/17 12:20; Start 01/13/17 at 18:00 Dextrose (Dextrose 50%-Water Syringe) 25 gm 1X ONCE IV ; Start 01/13/17 at 16: 45; Stop 01/13/17 at 16:46; Status DC Insulin Detemir 15 units 15 units QHS SQ Last administered on 01/16/17 21:24; Start 01/14/17 at 21:00 Sodium Acetate 70 meq/Potassium Acetate 45 meq/ Potassium Phosphate 20 mmol/ Magnesium Sulfate 15 meq/Calcium Gluconate 10 meq/ Multivitamins 10 ml/Chromium / Copper/Manganese/ Seleni/Zn 1 ml/ Total Parenteral Nutrition/Amino Acids/ Dextrose/ Fat Emulsion Intravenous 1,512 ml @ 63 mls/hr TPN CONT IV Last administered on 01/14/17 21:42; Start 01/14/17 at 22:00; Stop 01/15/17 at 21:59 ; Status DC Sodium Acetate 70 meq/Potassium Acetate 45 meq/ Potassium Phosphate 20 mmol/ Magnesium Sulfate 15 meq/Calcium Gluconate 10 meq/ Multivitamins 10 ml/Chromium / Copper/Manganese/ Seleni/Zn 1 ml/ Total Parenteral Nutrition/Amino Acids/ Dextrose/ Fat Emulsion Intravenous 1,512 ml @ 63 mls/hr TPN CONT IV Last administered on 01/15/17 22:22; Start 01/15/17 at 22:00; Stop 01/16/17 at 21:59 ; Status DC Sodium Acetate 70 meq/Potassium Acetate 45 meq/ Potassium Phosphate 20 mmol/ Magnesium Sulfate 15 meq/Calcium Gluconate 10 meq/ Multivitamins 10 ml/Chromium / Copper/Manganese/ Seleni/Zn 1 ml/ Total Parenteral Nutrition/Amino Acids/ Dextrose/ Fat Emulsion Intravenous 1,512 ml @ 63 mls/hr TPN CONT IV Last administered on 01/16/17 22:28; Start 01/16/17 at 22:00; Stop 01/17/17 at 21:59 Sodium Acetate/ Potassium Acetate/ Potassium Phosphate/ Magnesium Sulfate/ Calcium Gluconate/ Multivitamins/ Chromium/Copper/ Manganese/Seleni/ Zn/Total Parenteral Nutrition/Amino Acids/Dextrose/ Fat Emulsion Intravenous (Potassium Phosphate/Calcium Gluconate/ Infuvite Wild... 1,512 ml @ 63 mls/hr TPN CONT IV ; Start 01/17/17 at 22:00; Stop 01/18/17 at 21:59 Active Scripts Active Reported Pred Forte (Prednisolone Acetate) 1 Ml Drops.susp 1 Ml OU BID PRN Visine Allergy Relief Drop (Tetrahydrozoline Hcl/Zn Sulf) 15 Ml Drops 1 Drop OU PRN Thera Tears (Carboxymethylcellulose Sodium) 15 Ml Drops 1 Drop OU PRN Jaime-128 (Sodium Chloride) 15 Ml Drops 1 Drop OU PRN Tramadol Hcl 100 Mg Tbmp.24hr 100 Mg PO Q6H PRN Tramadol Hcl 50 Mg Tablet 50 Mg PO Q6H PRN Zyrtec (Cetirizine Hcl) 10 Mg Tablet 10 Mg PO DAILY Nasacort (Triamcinolone Acetonide) 10.8 Ml [place] 2 [place] NS DAILY Proair Hfa Inhaler (Albuterol Sulfate) 8.5 Gm Hfa.aer.ad 2 Puff INH QID Mucinex (Guaifenesin) 600 Mg Tablet.er 600 Mg PO Q8HRS PRN Levothyroxine Sodium 50 Mcg Tablet 50 Mcg PO DAILYAC Dyazide 37.5-25 Capsule (Triamterene/Hydrochlorothiazid) 1 Each Capsule 1 Cap PO DAILY Bystolic (Nebivolol) 5 Mg Tablet 5 Mg PO DAILY Vitals/I & O Vital Sign - Last 24 Hours 01/16/17 01/16/17 01/16/17 01/16/17 15:00 15:05 19:30 19:36 Temp 97.5 99.0 97.5 99.0 Pulse 83 79 83 Resp 18 20 B/P 158/61 149/63 158/61 Pulse Ox 93 95 93 O2 Delivery Nasal Cannula Nasal Cannula Nasal Cannula O2 Flow Rate 2.0 2.0 2.0 01/16/17 01/16/17 01/16/17 01/17/17 20:00 20:54 23:30 00:19 Temp 98.6 98.6 Pulse 86 86 Resp 18 B/P 144/64 144/64 Pulse Ox 96 91 O2 Delivery Nasal Cannula Nasal Cannula Nasal Cannula O2 Flow Rate 2.0 2.0 2.0 01/17/17 01/17/17 01/17/1717 03:29 05:50 07:00 07:10 Temp 99.3 97.5 99.3 97.5 Pulse 85 85 103 Resp 18 15 B/P 151/49 151/49 155/73 Pulse Ox 91 93 86 O2 Delivery Nasal Cannula Nasal Cannula Nasal Cannula O2 Flow Rate 2.0 2.0 2.0 01/17/17 01/17/17 01/17/17 01/17/17 07:30 10:50 10:50 12:20 Temp 97.7 97.7 Pulse 106 106 Resp 18 B/P 146/68 146/68 Pulse Ox 90 93 O2 Delivery Nasal Cannula Nasal Cannula Nasal Cannula O2 Flow Rate 2.0 4.0 2.0 01/17/17 01/17/17 12:29 13:42 O2 Delivery Nasal Cannula Room Air O2 Flow Rate 3.0 Intake and Output 01/16/17 01/16/17 01/17/17 15:00 23:00 07:00 Intake Total 1314 ml Output Total 860 ml 500 ml 475 ml Balance -860 ml -500 ml 839 ml JOSE MARQUEZ III DO Jan 17, 2017 14:38
[2017-01-17 15:22] VITALS: BP 141/98
[2017-01-17 19:15] VITALS: BP 139/85
[2017-01-17] MEDS ORDERED: BUMETANIDE 1 MG/4 ML VIAL. IV ONE (20:00)
[2017-01-17] MEDS ORDERED: AMINO ACIDS IV SCH ×10 (22:00)
[2017-01-17] MEDS ORDERED: [UNRECOGNIZED DRUG - OTHER] IV SCH ×10 (22:00)
[2017-01-17] MEDS ORDERED: TOTAL PARENTERAL NUTRITION IV SCH ×10 (22:00)
[2017-01-17] MEDS ORDERED: DEXTROSE 70% IV SCH ×10 (22:00)
[2017-01-17] MEDS: INSULIN DETEMIR 300 UNITS/3 ML INSULN.PEN. SQ SCH (22:06)
[2017-01-18] VITALS (8 sets, daily range): BP systolic 109–147; BP diastolic 58–84
[2017-01-18] MEDS: PIPERACILLIN/TAZOBACTAM 3.375 GM in IV NORMAL SALINE 50ML 50 ML IV SCH ×4 (00:17→17:23)
[2017-01-18] MEDS: METOPROLOL TARTRATE 5 MG/5 ML VIAL. IVP SCH ×4 (00:18→17:22)
[2017-01-18] MEDS: INSULIN ASPART 300 UNITS/3 ML INSULN.PEN SQ SCH ×4 (00:25→17:30)
[2017-01-18] MEDS: OXYCODONE IR 5 MG TABLET. PO PRN ×4 (00:39→21:32)
[2017-01-18] MEDS: IV NORMAL SALINE 1000ML BAG 1,000 ML IV SCH ×2 (03:37→19:06)
--- NOTE | 2017-01-18 04:28 | RAD ---
Chest AP only Indication: Fluid overload and difficulty breathing. Time of exam 4:17 a.m. The prior exams are not available for comparison. The heart is enlarged. There are bilateral pulmonary infiltrates consistent with congestive failure. There appears to be a moderate left pleural effusion. There is a right sided line with tip overlying the right atrium. Impression: Congestive failure with bilateral infiltrates and effusions, left greater. Electronically signed by: Erik Miller MD (Jan 18, 2017 04:26:19)
[2017-01-18] MEDS ORDERED: BUMETANIDE 1 MG/4 ML VIAL. IV ONE (04:30)
[2017-01-18 04:34] LABS: BASO % 0 % (0-3); EOS % 0 % (0-3); HEMATOCRIT 31.1 % (36.0-47.0); HEMOGLOBIN 10.3 g/dL (12.0-15.5); LYMPH # 1.5 x10^3/uL (1.0-4.8); LYMPH % 7 % (24-48); MEAN CORPUSCULAR HEMOGLOBIN 29 pg (25-35); MEAN CORPUSCULAR HGB CONC 33 g/dL (31-37); MEAN CORPUSCULAR VOLUME 87 fL (79-100); MONO % 7 % (0-9); NEUT % 86 % (31-73); PLATELET COUNT 221 x10^3/uL (140-400); RED BLOOD COUNT 3.57 x10^6/uL (3.50-5.40); RED CELL DISTRIBUTION WIDTH 15.2 % (11.5-14.5)
[2017-01-18 05:43] LABS: CREATININE 1.1 mg/dL (0.6-1.0); GFR 47.9; POTASSIUM 3.3 mmol/L (3.5-5.1)
[2017-01-18] MEDS: ALBUTEROL SULFATE 2.5 MG/3 ML NEBU. NEB SCH ×4 (07:39→18:58)
[2017-01-18] MEDS: DOCUSATE SODIUM 100 MG CAPSULE. PO SCH ×2 (08:49→21:30)
[2017-01-18] MEDS: LEVOTHYROXINE SODIUM 25 MCG in IV NORMAL SALINE 50ML 5 ML IVP SCH (08:49)
[2017-01-18] MEDS: PANTOPRAZOLE IV PUSH 40 MG VIAL. IVP SCH (08:49)
[2017-01-18] MEDS: CETIRIZINE HCL 10 MG TABLET. PO SCH (08:49)
[2017-01-18] MEDS: FLUTICASONE 50MCG/NASAL SPRAY 16GM BOTTLE. NS SCH (08:50)
[2017-01-18] MEDS: TPN PER PHARMACY MC PRN (11:09)
--- NOTE | 2017-01-18 14:21 | PDOC ---
SURGICAL PROGRESS NOTE Subjective "breathing better" today looks more comfortable Vital Signs Vital Signs Date Time Temp Pulse Resp B/P Pulse Ox O2 Delivery O2 Flow Rate FiO2 01/18/17 11:54 111 124/67 01/18/17 11:09 97 Nasal Cannula 6.0 01/18/17 11:00 98.4 24 98.4 I&O Intake and Output 01/18/17 07:00 Intake Total 2944 ml Output Total 3220 ml Balance -276 ml Intake Oral 300 ml IV Total 2644 ml Output Urine Total 2900 ml Stool Total 100 ml Drainage Total 220 ml PATIENT HAS A RDZ: Yes (accurate I and O) General: Alert, No acute distress Abdomen: Soft Labs Laboratory Tests Test 01/16/17 17:56 01/16/17 21:17 01/17/17 00:22 01/17/17 05:20 Glucose (Fingerstick) 173mg/dL (70-99) 199mg/dL (70-99) 189mg/dL (70-99) White Blood Count 17.3x10^3/uL (4.0-11.0) Red Blood Count 3.35x10^6/uL (3.50-5.40) Hemoglobin 9.6g/dL (12.0-15.5) Hematocrit 28.8% (36.0-47.0) Mean Corpuscular Volume 86fL (79-100) Mean Corpuscular Hemoglobin 29pg (25-35) Mean Corpuscular Hemoglobin Concent 33g/dL (31-37) Red Cell Distribution Width 15.1% (11.5-14.5) Platelet Count 200x10^3/uL (140-400) Neutrophils (%) (Auto) 84% (31-73) Lymphocytes (%) (Auto) 6% (24-48) Monocytes (%) (Auto) 9% (0-9) Eosinophils (%) (Auto) 1% (0-3) Basophils (%) (Auto) 0% (0-3) Neutrophils # (Auto) 14.5x10^3uL (1.8-7.7) Lymphocytes # (Auto) 1.1x10^3/uL (1.0-4.8) Monocytes # (Auto) 1.5x10^3/uL (0.0-1.1) Eosinophils # (Auto) 0.1x10^3/uL (0.0-0.7) Basophils # (Auto) 0.1x10^3/uL (0.0-0.2) Sodium Level 137mmol/L (136-145) Potassium Level 3.8mmol/L (3.5-5.1) Chloride Level 102mmol/L (98-107) Carbon Dioxide Level 28mmol/L (21-32) Anion Gap 7 (6-14) Blood Urea Nitrogen 23mg/dL (7-20) Creatinine 1.1mg/dL (0.6-1.0) Estimated GFR (Cockcroft-Gault) 47.9 Glucose Level 150mg/dL (70-99) Calcium Level 7.8mg/dL (8.5-10.1) Phosphorus Level 4.0mg/dL (2.6-4.7) Magnesium Level 2.1mg/dL (1.8-2.4) Test 01/17/17 05:44 01/17/17 12:22 01/17/17 16:58 01/17/17 23:57 Glucose (Fingerstick) 167mg/dL (70-99) 176mg/dL (70-99) 188mg/dL (70-99) 201mg/dL (70-99) Test 01/18/17 04:26 01/18/17 05:50 01/18/17 12:02 White Blood Count 22.0x10^3/uL (4.0-11.0) Red Blood Count 3.57x10^6/uL (3.50-5.40) Hemoglobin 10.3g/dL (12.0-15.5) Hematocrit 31.1% (36.0-47.0) Mean Corpuscular Volume 87fL (79-100) Mean Corpuscular Hemoglobin 29pg (25-35) Mean Corpuscular Hemoglobin Concent 33g/dL (31-37) Red Cell Distribution Width 15.2% (11.5-14.5) Platelet Count 221x10^3/uL (140-400) Neutrophils (%) (Auto) 86% (31-73) Lymphocytes (%) (Auto) 7% (24-48) Monocytes (%) (Auto) 7% (0-9) Eosinophils (%) (Auto) 0% (0-3) Basophils (%) (Auto) 0% (0-3) Neutrophils # (Auto) 18.9x10^3uL (1.8-7.7) Lymphocytes # (Auto) 1.5x10^3/uL (1.0-4.8) Monocytes # (Auto) 1.5x10^3/uL (0.0-1.1) Eosinophils # (Auto) 0.0x10^3/uL (0.0-0.7) Basophils # (Auto) 0.0x10^3/uL (0.0-0.2) Sodium Level 136mmol/L (136-145) Potassium Level 3.3mmol/L (3.5-5.1) Chloride Level 99mmol/L (98-107) Carbon Dioxide Level 29mmol/L (21-32) Anion Gap 8 (6-14) Blood Urea Nitrogen 23mg/dL (7-20) Creatinine 1.1mg/dL (0.6-1.0) Estimated GFR (Cockcroft-Gault) 47.9 Glucose Level 174mg/dL (70-99) Calcium Level 8.0mg/dL (8.5-10.1) MV-Rph-K-Type Natriuretic Peptide 6377pg/mL (0-449) Glucose (Fingerstick) 188mg/dL (70-99) 165mg/dL (70-99) Laboratory Tests Test 01/17/17 16:58 01/17/17 23:57 01/18/17 04:26 01/18/17 05:50 Glucose (Fingerstick) 188mg/dL (70-99) 201mg/dL (70-99) 188mg/dL (70-99) White Blood Count 22.0x10^3/uL (4.0-11.0) Red Blood Count 3.57x10^6/uL (3.50-5.40) Hemoglobin 10.3g/dL (12.0-15.5) Hematocrit 31.1% (36.0-47.0) Mean Corpuscular Volume 87fL (79-100) Mean Corpuscular Hemoglobin 29pg (25-35) Mean Corpuscular Hemoglobin Concent 33g/dL (31-37) Red Cell Distribution Width 15.2% (11.5-14.5) Platelet Count 221x10^3/uL (140-400) Neutrophils (%) (Auto) 86% (31-73) Lymphocytes (%) (Auto) 7% (24-48) Monocytes (%) (Auto) 7% (0-9) Eosinophils (%) (Auto) 0% (0-3) Basophils (%) (Auto) 0% (0-3) Neutrophils # (Auto) 18.9x10^3uL (1.8-7.7) Lymphocytes # (Auto) 1.5x10^3/uL (1.0-4.8) Monocytes # (Auto) 1.5x10^3/uL (0.0-1.1) Eosinophils # (Auto) 0.0x10^3/uL (0.0-0.7) Basophils # (Auto) 0.0x10^3/uL (0.0-0.2) Sodium Level 136mmol/L (136-145) Potassium Level 3.3mmol/L (3.5-5.1) Chloride Level 99mmol/L (98-107) Carbon Dioxide Level 29mmol/L (21-32) Anion Gap 8 (6-14) Blood Urea Nitrogen 23mg/dL (7-20) Creatinine 1.1mg/dL (0.6-1.0) Estimated GFR (Cockcroft-Gault) 47.9 Glucose Level 174mg/dL (70-99) Calcium Level 8.0mg/dL (8.5-10.1) UC-Ekh-S-Type Natriuretic Peptide 6377pg/mL (0-449) Test 01/18/17 12:02 Glucose (Fingerstick) 165mg/dL (70-99) Problem List Problems Medical Problems: (1) Pancreatic mass Status: Acute Assessment/Plan s/p Whipple, splenectomy and left nephrectomy continue supportive care Problems: JAMES CHUNG MD Jan 18, 2017 14:21
--- NOTE | 2017-01-18 15:37 | PDOC ---
PROGRESS NOTES Chief Complaint Chief Complaint Pancreatic mass w/obstruction ASSESSMENT AND PLAN: s/p palliative resection on 01/[address] Jenkins. recovering appropriately Anemia: acute blood loss and chronic inflammation. stable - sl improved Leukocytosis: persistent. unclear etiology. no infectious source apparent, blood cult from 01/13 NG. remains on empiric Abx Thrombocytopenia: resolved Coagulopathy: resolved SIRS: resolved DM: fair control while on TPN. increase levemir 15->17 Nutrition: started on clear liquids, tolerating. advance to full liquids, keep TPN for now 2/2 malnutrition until full PO FREDIS: resolved HTN: well controlled off meds asthma: nebs PRN Vitals Vitals Vital Signs Date Time Temp Pulse Resp B/P Pulse Ox O2 Delivery O2 Flow Rate FiO2 01/18/17 15:00 98.2 98 24 109/67 96 Nasal Cannula 4.0 98.2 Physical Exam General: Alert, No acute distress Heart: Regular rate, Normal S1, Normal S2 Lungs: Crackles, Other Abdomen: Soft Extremities: No clubbing, No cyanosis, No edema Skin: No rashes, No significant lesion, Other (dressing clean, dry, and intact. ) Labs LABS Laboratory Tests Test 01/17/17 16:58 01/17/17 23:57 01/18/17 04:26 01/18/17 05:50 Glucose (Fingerstick) 188mg/dL (70-99) 201mg/dL (70-99) 188mg/dL (70-99) White Blood Count 22.0x10^3/uL (4.0-11.0) Red Blood Count 3.57x10^6/uL (3.50-5.40) Hemoglobin 10.3g/dL (12.0-15.5) Hematocrit 31.1% (36.0-47.0) Mean Corpuscular Volume 87fL (79-100) Mean Corpuscular Hemoglobin 29pg (25-35) Mean Corpuscular Hemoglobin Concent 33g/dL (31-37) Red Cell Distribution Width 15.2% (11.5-14.5) Platelet Count 221x10^3/uL (140-400) Neutrophils (%) (Auto) 86% (31-73) Lymphocytes (%) (Auto) 7% (24-48) Monocytes (%) (Auto) 7% (0-9) Eosinophils (%) (Auto) 0% (0-3) Basophils (%) (Auto) 0% (0-3) Neutrophils # (Auto) 18.9x10^3uL (1.8-7.7) Lymphocytes # (Auto) 1.5x10^3/uL (1.0-4.8) Monocytes # (Auto) 1.5x10^3/uL (0.0-1.1) Eosinophils # (Auto) 0.0x10^3/uL (0.0-0.7) Basophils # (Auto) 0.0x10^3/uL (0.0-0.2) Sodium Level 136mmol/L (136-145) Potassium Level 3.3mmol/L (3.5-5.1) Chloride Level 99mmol/L (98-107) Carbon Dioxide Level 29mmol/L (21-32) Anion Gap 8 (6-14) Blood Urea Nitrogen 23mg/dL (7-20) Creatinine 1.1mg/dL (0.6-1.0) Estimated GFR (Cockcroft-Gault) 47.9 Glucose Level 174mg/dL (70-99) Calcium Level 8.0mg/dL (8.5-10.1) HV-Ete-V-Type Natriuretic Peptide 6377pg/mL (0-449) Test 01/18/17 12:02 Glucose (Fingerstick) 165mg/dL (70-99) Review of Systems Review of Systems no c/o, abd pain mild, tolerable. JAC VILLA MD Jan 18, 2017 15:37
[2017-01-18] MEDS: INSULIN DETEMIR 300 UNITS/3 ML INSULN.PEN. SQ SCH (21:40)
[2017-01-18] MEDS ORDERED: [UNRECOGNIZED DRUG - OTHER] IV SCH ×11 (22:00)
[2017-01-18] MEDS ORDERED: DEXTROSE 70% IV SCH ×11 (22:00)
[2017-01-18] MEDS ORDERED: AMINO ACIDS IV SCH ×11 (22:00)
[2017-01-18] MEDS ORDERED: TOTAL PARENTERAL NUTRITION IV SCH ×11 (22:00)
[2017-01-19] MEDS: OXYCODONE IR 5 MG TABLET. PO PRN ×3 (02:44→19:54)
[2017-01-19 03:00] VITALS: BP 111/45
[2017-01-19] MEDS: INSULIN ASPART 300 UNITS/3 ML INSULN.PEN SQ SCH ×4 (06:00→18:00)
[2017-01-19] MEDS: METOPROLOL TARTRATE 5 MG/5 ML VIAL. IVP SCH ×2 (06:00)
[2017-01-19 06:05] VITALS: BP 117/54
[2017-01-19] MEDS: ALBUTEROL SULFATE 2.5 MG/3 ML NEBU. NEB SCH ×4 (06:08→20:04)
[2017-01-19] MEDS: PIPERACILLIN/TAZOBACTAM 3.375 GM in IV NORMAL SALINE 50ML 50 ML IV SCH ×6 (06:23→23:51)
[2017-01-19 06:49] LABS: BASO # 0.1 x10^3/uL (0.0-0.2); BASO % 0 % (0-3); EOS % 1 % (0-3); HEMATOCRIT 29.1 % (36.0-47.0); HEMOGLOBIN 9.5 g/dL (12.0-15.5); LYMPH % 8 % (24-48); MEAN CORPUSCULAR HEMOGLOBIN 28 pg (25-35); MEAN CORPUSCULAR HGB CONC 33 g/dL (31-37); MEAN CORPUSCULAR VOLUME 86 fL (79-100); MONO % 6 % (0-9); NEUT % 85 % (31-73); PLATELET COUNT 274 x10^3/uL (140-400); RED BLOOD COUNT 3.38 x10^6/uL (3.50-5.40); WHITE BLOOD COUNT 24.7 x10^3/uL (4.0-11.0)
[2017-01-19 07:00] LABS: CALCIUM 7.8 mg/dL (8.5-10.1); CREATININE 1.1 mg/dL (0.6-1.0); GFR 47.9; POTASSIUM 3.1 mmol/L (3.5-5.1)
[2017-01-19] MEDS: PANTOPRAZOLE IV PUSH 40 MG VIAL. IVP SCH (07:30)
[2017-01-19] MEDS: DOCUSATE SODIUM 100 MG CAPSULE. PO SCH ×3 (08:22→20:57)
[2017-01-19] MEDS: CETIRIZINE HCL 10 MG TABLET. PO SCH (08:22)
[2017-01-19] MEDS: FLUTICASONE 50MCG/NASAL SPRAY 16GM BOTTLE. NS SCH (08:24)
--- NOTE | 2017-01-19 08:33 | PDOC ---
SURGICAL PROGRESS NOTE Subjective resting d/w nurse, WBC rising Vital Signs Vital Signs Date Time Temp Pulse Resp B/P Pulse Ox O2 Delivery O2 Flow Rate FiO2 01/19/17 07:20 Nasal Cannula 3.0 01/19/17 06:05 101 117/54 01/19/17 03:00 98.5 20 91 98.5 I&O Intake and Output 01/19/17 06:59 Intake Total 945 ml Output Total 1900 ml Balance -955 ml Intake Oral 200 ml IV Total 745 ml Output Urine Total 800 ml Stool Total 1100 ml PATIENT HAS A RDZ: Yes (critical I&O) General: Alert, Oriented X3, Cooperative, No acute distress Abdomen: Soft, Other (ostomy with stool, incision c/d/i, no erythema) Labs Laboratory Tests Test 01/17/17 12:22 01/17/17 16:58 01/17/17 23:57 01/18/17 04:26 Glucose (Fingerstick) 176mg/dL (70-99) 188mg/dL (70-99) 201mg/dL (70-99) White Blood Count 22.0x10^3/uL (4.0-11.0) Red Blood Count 3.57x10^6/uL (3.50-5.40) Hemoglobin 10.3g/dL (12.0-15.5) Hematocrit 31.1% (36.0-47.0) Mean Corpuscular Volume 87fL (79-100) Mean Corpuscular Hemoglobin 29pg (25-35) Mean Corpuscular Hemoglobin Concent 33g/dL (31-37) Red Cell Distribution Width 15.2% (11.5-14.5) Platelet Count 221x10^3/uL (140-400) Neutrophils (%) (Auto) 86% (31-73) Lymphocytes (%) (Auto) 7% (24-48) Monocytes (%) (Auto) 7% (0-9) Eosinophils (%) (Auto) 0% (0-3) Basophils (%) (Auto) 0% (0-3) Neutrophils # (Auto) 18.9x10^3uL (1.8-7.7) Lymphocytes # (Auto) 1.5x10^3/uL (1.0-4.8) Monocytes # (Auto) 1.5x10^3/uL (0.0-1.1) Eosinophils # (Auto) 0.0x10^3/uL (0.0-0.7) Basophils # (Auto) 0.0x10^3/uL (0.0-0.2) Sodium Level 136mmol/L (136-145) Potassium Level 3.3mmol/L (3.5-5.1) Chloride Level 99mmol/L (98-107) Carbon Dioxide Level 29mmol/L (21-32) Anion Gap 8 (6-14) Blood Urea Nitrogen 23mg/dL (7-20) Creatinine 1.1mg/dL (0.6-1.0) Estimated GFR (Cockcroft-Gault) 47.9 Glucose Level 174mg/dL (70-99) Calcium Level 8.0mg/dL (8.5-10.1) KG-Ogm-V-Type Natriuretic Peptide 6377pg/mL (0-449) Test 01/18/17 05:50 01/18/17 12:02 01/18/17 17:15 01/18/17 23:58 Glucose (Fingerstick) 188mg/dL (70-99) 165mg/dL (70-99) 171mg/dL (70-99) 149mg/dL (70-99) Test 01/19/17 06:19 01/19/17 06:35 Glucose (Fingerstick) 61mg/dL (70-99) White Blood Count 24.7x10^3/uL (4.0-11.0) Red Blood Count 3.38x10^6/uL (3.50-5.40) Hemoglobin 9.5g/dL (12.0-15.5) Hematocrit 29.1% (36.0-47.0) Mean Corpuscular Volume 86fL (79-100) Mean Corpuscular Hemoglobin 28pg (25-35) Mean Corpuscular Hemoglobin Concent 33g/dL (31-37) Red Cell Distribution Width 15.0% (11.5-14.5) Platelet Count 274x10^3/uL (140-400) Neutrophils (%) (Auto) 85% (31-73) Lymphocytes (%) (Auto) 8% (24-48) Monocytes (%) (Auto) 6% (0-9) Eosinophils (%) (Auto) 1% (0-3) Basophils (%) (Auto) 0% (0-3) Neutrophils # (Auto) 21.0x10^3uL (1.8-7.7) Lymphocytes # (Auto) 2.0x10^3/uL (1.0-4.8) Monocytes # (Auto) 1.4x10^3/uL (0.0-1.1) Eosinophils # (Auto) 0.2x10^3/uL (0.0-0.7) Basophils # (Auto) 0.1x10^3/uL (0.0-0.2) Sodium Level 139mmol/L (136-145) Potassium Level 3.1mmol/L (3.5-5.1) Chloride Level 100mmol/L (98-107) Carbon Dioxide Level 33mmol/L (21-32) Anion Gap 6 (6-14) Blood Urea Nitrogen 26mg/dL (7-20) Creatinine 1.1mg/dL (0.6-1.0) Estimated GFR (Cockcroft-Gault) 47.9 Glucose Level 56mg/dL (70-99) Calcium Level 7.8mg/dL (8.5-10.1) Laboratory Tests Test 01/18/17 12:02 01/18/17 17:15 01/18/17 23:58 01/19/17 06:19 Glucose (Fingerstick) 165mg/dL (70-99) 171mg/dL (70-99) 149mg/dL (70-99) 61mg/dL (70-99) Test 01/19/17 06:35 White Blood Count 24.7x10^3/uL (4.0-11.0) Red Blood Count 3.38x10^6/uL (3.50-5.40) Hemoglobin 9.5g/dL (12.0-15.5) Hematocrit 29.1% (36.0-47.0) Mean Corpuscular Volume 86fL (79-100) Mean Corpuscular Hemoglobin 28pg (25-35) Mean Corpuscular Hemoglobin Concent 33g/dL (31-37) Red Cell Distribution Width 15.0% (11.5-14.5) Platelet Count 274x10^3/uL (140-400) Neutrophils (%) (Auto) 85% (31-73) Lymphocytes (%) (Auto) 8% (24-48) Monocytes (%) (Auto) 6% (0-9) Eosinophils (%) (Auto) 1% (0-3) Basophils (%) (Auto) 0% (0-3) Neutrophils # (Auto) 21.0x10^3uL (1.8-7.7) Lymphocytes # (Auto) 2.0x10^3/uL (1.0-4.8) Monocytes # (Auto) 1.4x10^3/uL (0.0-1.1) Eosinophils # (Auto) 0.2x10^3/uL (0.0-0.7) Basophils # (Auto) 0.1x10^3/uL (0.0-0.2) Sodium Level 139mmol/L (136-145) Potassium Level 3.1mmol/L (3.5-5.1) Chloride Level 100mmol/L (98-107) Carbon Dioxide Level 33mmol/L (21-32) Anion Gap 6 (6-14) Blood Urea Nitrogen 26mg/dL (7-20) Creatinine 1.1mg/dL (0.6-1.0) Estimated GFR (Cockcroft-Gault) 47.9 Glucose Level 56mg/dL (70-99) Calcium Level 7.8mg/dL (8.5-10.1) Problem List Problems Medical Problems: (1) Pancreatic mass Status: Acute Assessment/Plan s/p Whipple, splenectomy, left nephrectomy wbc 24, no fevers cxr yesterday showed chf with infiltrates, effusions--could be contributing to elevated WBC, on abx--chf per primary will also check urine Problems: PAOLO BORREGO APRN Jan 19, 2017 08:33
[2017-01-19] MEDS: LEVOTHYROXINE SODIUM 25 MCG in IV NORMAL SALINE 50ML 5 ML IVP SCH (09:13)
--- NOTE | 2017-01-19 09:26 | PDOC ---
PROGRESS NOTES Subjective Subjective c/c - f/u of Pancreatic cancer Objective Objective Vital Signs Date Time Temp Pulse Resp B/P Pulse Ox O2 Delivery O2 Flow Rate FiO2 01/19/17 07:20 Nasal Cannula 3.0 01/19/17 06:05 101 117/54 01/19/17 03:00 98.5 20 91 98.5 Intake and Output 01/19/17 07:00 Intake Total 945 ml Output Total 1900 ml Balance -955 ml Intake Oral 200 ml IV Total 745 ml Output Urine Total 800 ml Stool Total 1100 ml Physical Exam Heart: Normal S1, Normal S2 General: Alert, Oriented X3 Lungs: Clear to auscultation Psych/Mental Status: Mental status NL Assessment Assessment Problems Medical Problems: (1) Pancreatic mass Status: Acute IMPRESSION AND PLAN: 1. Pancreatic cancer - measuring [address] involving the tail of the pancreas noted on the CAT scan of the abdomen and pelvis done on 01/08/2017 at [facility]. The mass is noted to be invading the spleen, stomach and splenic flexure of the colon with associated colonic obstruction. There was also evidence of an 18 mm lesion in the left lobe of the liver concerning for metastatic focus. I also discussed in detail with Dr. Erik Jenkins and in view of colon obstruction caused by the mass, I agreed to proceed with surgery which was done 01/10/2017. All gross disease resected. f/u pathology. I d/w Dr Decker. 2. CT scan of the chest 01/09/17 : 3 mm nonspecific left upper lobe pulmonary nodule. Attention on follow-up imaging. Bone scan 01/09/17 is neg. CA 19-9 was [id number] on 01/09/17. level. 3. Liver metastasis per CT abdomen. I discussed with Dr. Erik Jenkins. s/p resection of 2 lesions. 4. Anemia: monitor cbc. Hb 9.5. Comment Review of Relevant I have reviewed the following items [place] (where applicable) has been applied. Labs Laboratory Tests Test 01/17/17 12:22 01/17/17 16:58 01/17/17 23:57 01/18/17 04:26 Glucose (Fingerstick) 176mg/dL (70-99) 188mg/dL (70-99) 201mg/dL (70-99) White Blood Count 22.0x10^3/uL (4.0-11.0) Red Blood Count 3.57x10^6/uL (3.50-5.40) Hemoglobin 10.3g/dL (12.0-15.5) Hematocrit 31.1% (36.0-47.0) Mean Corpuscular Volume 87fL (79-100) Mean Corpuscular Hemoglobin 29pg (25-35) Mean Corpuscular Hemoglobin Concent 33g/dL (31-37) Red Cell Distribution Width 15.2% (11.5-14.5) Platelet Count 221x10^3/uL (140-400) Neutrophils (%) (Auto) 86% (31-73) Lymphocytes (%) (Auto) 7% (24-48) Monocytes (%) (Auto) 7% (0-9) Eosinophils (%) (Auto) 0% (0-3) Basophils (%) (Auto) 0% (0-3) Neutrophils # (Auto) 18.9x10^3uL (1.8-7.7) Lymphocytes # (Auto) 1.5x10^3/uL (1.0-4.8) Monocytes # (Auto) 1.5x10^3/uL (0.0-1.1) Eosinophils # (Auto) 0.0x10^3/uL (0.0-0.7) Basophils # (Auto) 0.0x10^3/uL (0.0-0.2) Sodium Level 136mmol/L (136-145) Potassium Level 3.3mmol/L (3.5-5.1) Chloride Level 99mmol/L (98-107) Carbon Dioxide Level 29mmol/L (21-32) Anion Gap 8 (6-14) Blood Urea Nitrogen 23mg/dL (7-20) Creatinine 1.1mg/dL (0.6-1.0) Estimated GFR (Cockcroft-Gault) 47.9 Glucose Level 174mg/dL (70-99) Calcium Level 8.0mg/dL (8.5-10.1) NQ-Noo-A-Type Natriuretic Peptide 6377pg/mL (0-449) Test 01/18/17 05:50 01/18/17 12:02 01/18/17 17:15 01/18/17 23:58 Glucose (Fingerstick) 188mg/dL (70-99) 165mg/dL (70-99) 171mg/dL (70-99) 149mg/dL (70-99) Test 01/19/17 06:19 01/19/17 06:35 01/19/17 08:27 Glucose (Fingerstick) 61mg/dL (70-99) 61mg/dL (70-99) White Blood Count 24.7x10^3/uL (4.0-11.0) Red Blood Count 3.38x10^6/uL (3.50-5.40) Hemoglobin 9.5g/dL (12.0-15.5) Hematocrit 29.1% (36.0-47.0) Mean Corpuscular Volume 86fL (79-100) Mean Corpuscular Hemoglobin 28pg (25-35) Mean Corpuscular Hemoglobin Concent 33g/dL (31-37) Red Cell Distribution Width 15.0% (11.5-14.5) Platelet Count 274x10^3/uL (140-400) Neutrophils (%) (Auto) 85% (31-73) Lymphocytes (%) (Auto) 8% (24-48) Monocytes (%) (Auto) 6% (0-9) Eosinophils (%) (Auto) 1% (0-3) Basophils (%) (Auto) 0% (0-3) Neutrophils # (Auto) 21.0x10^3uL (1.8-7.7) Lymphocytes # (Auto) 2.0x10^3/uL (1.0-4.8) Monocytes # (Auto) 1.4x10^3/uL (0.0-1.1) Eosinophils # (Auto) 0.2x10^3/uL (0.0-0.7) Basophils # (Auto) 0.1x10^3/uL (0.0-0.2) Sodium Level 139mmol/L (136-145) Potassium Level 3.1mmol/L (3.5-5.1) Chloride Level 100mmol/L (98-107) Carbon Dioxide Level 33mmol/L (21-32) Anion Gap 6 (6-14) Blood Urea Nitrogen 26mg/dL (7-20) Creatinine 1.1mg/dL (0.6-1.0) Estimated GFR (Cockcroft-Gault) 47.9 Glucose Level 56mg/dL (70-99) Calcium Level 7.8mg/dL (8.5-10.1) Laboratory Tests Test 01/18/17 12:02 01/18/17 17:15 01/18/17 23:58 01/19/17 06:19 Glucose (Fingerstick) 165mg/dL (70-99) 171mg/dL (70-99) 149mg/dL (70-99) 61mg/dL (70-99) Test 01/19/17 06:35 01/19/17 08:27 White Blood Count 24.7x10^3/uL (4.0-11.0) Red Blood Count 3.38x10^6/uL (3.50-5.40) Hemoglobin 9.5g/dL (12.0-15.5) Hematocrit 29.1% (36.0-47.0) Mean Corpuscular Volume 86fL (79-100) Mean Corpuscular Hemoglobin 28pg (25-35) Mean Corpuscular Hemoglobin Concent 33g/dL (31-37) Red Cell Distribution Width 15.0% (11.5-14.5) Platelet Count 274x10^3/uL (140-400) Neutrophils (%) (Auto) 85% (31-73) Lymphocytes (%) (Auto) 8% (24-48) Monocytes (%) (Auto) 6% (0-9) Eosinophils (%) (Auto) 1% (0-3) Basophils (%) (Auto) 0% (0-3) Neutrophils # (Auto) 21.0x10^3uL (1.8-7.7) Lymphocytes # (Auto) 2.0x10^3/uL (1.0-4.8) Monocytes # (Auto) 1.4x10^3/uL (0.0-1.1) Eosinophils # (Auto) 0.2x10^3/uL (0.0-0.7) Basophils # (Auto) 0.1x10^3/uL (0.0-0.2) Sodium Level 139mmol/L (136-145) Potassium Level 3.1mmol/L (3.5-5.1) Chloride Level 100mmol/L (98-107) Carbon Dioxide Level 33mmol/L (21-32) Anion Gap 6 (6-14) Blood Urea Nitrogen 26mg/dL (7-20) Creatinine 1.1mg/dL (0.6-1.0) Estimated GFR (Cockcroft-Gault) 47.9 Glucose Level 56mg/dL (70-99) Calcium Level 7.8mg/dL (8.5-10.1) Glucose (Fingerstick) 61mg/dL (70-99) Microbiology 01/13/17 Blood Culture - Final, Complete NO GROWTH AFTER 5 DAYS Medications Current Medications Sodium Chloride (Iv Sodium Chloride 0.45%) 1,000 ml @ 80 mls/hr [id number] IV Last administered on 01/08/17 22:17; Start 01/08/17 at 21:03; Stop 01/09/17 at 09: 23; Status DC Ondansetron HCl (Zofran) 4 mg PRN Q6HRS PRN IV NAUSEA/VOMITING Last administered on 01/09/17 15:51; Start 01/08/17 at 21:15; Stop 01/10/17 at 17:41; Status DC Prochlorperazine Edisylate (Compazine) 10 mg PRN Q6HRS PRN IV NAUSEA/VOMITING; Start 01/08/17 at 21:15 Prochlorperazine (Compazine) 25 mg PRN Q12HR PRN LA NAUSEA/VOMITING; Start 01/08 at 21:15 Al Hydroxide/Mg Hydroxide (Mylanta Plus Xs) 30 ml PRN Q3HRS PRN PO HEARTBURN / GAS; Start 01/08/17 at 21:15 Calcium Carbonate/ Glycine (Tums) 500 mg PRN Q3HRS PRN PO UPSET STOMACH; Start 01/08/17 at 21:15; Stop 01/08/17 at 21:20; Status DC Oxycodone HCl (Roxicodone) 5 mg PRN Q3HRS PRN PO BREAKTHROUGH PAIN Last administered on 01/19/17 02:44; Start 01/08/17 at 21:15 Morphine Sulfate 1 mg PRN Q2HR PRN IV PAIN Last administered on 01/10/17 08:51 ; Start 01/08/17 at 21:15; Stop 01/11/17 at 08:13; Status DC Acetaminophen (Tylenol) 650 mg PRN Q6HRS PRN PO MILD PAIN / TEMP; Start at 21:15 Docusate Sodium (Colace) 100 mg BID PO Last administered on 01/19/17 08:22; Start 01/08/17 at 22:00 Magnesium Hydroxide (Milk Of Magnesia) 2,400 mg PRN Q12HR PRN PO CONSTIPATION; Start 01/08/17 at 21:15 Bisacodyl (Dulcolax Supp) 10 mg PRN DAILY PRN LA CONSTIPATION; Start 01/08/17 at 21:15 Enoxaparin Sodium (Lovenox 40mg Syringe) 40 mg Q24H SQ ; Start 01/08/17 at 22:00 ; Stop 01/08/17 at 22:00; Status DC Pantoprazole Sodium (Protonix Vial) 40 mg DAILYAC IVP Last administered on 01/19 07:30; Start 01/09/17 at 07:30 Enoxaparin Sodium 30 mg 30 mg Q24H SQ Last administered on 01/08/17 22:20; Start 01/08/17 at 22:00; Stop 01/09/17 at 09:24; Status DC Cefoxitin Sodium (Mefoxin 2gm Ivpb For Omni) 100 ml @ 200 mls/hr 1X PERIOP IV ; Start 01/09/17 at 08:45; Stop 01/10/17 at 11:49; Status DC Cetirizine HCl (Zyrtec) 10 mg DAILY PO Last administered on 01/19/17 08:22; Start 01/09/17 at 10:30 Guaifenesin (Mucinex) 600 mg PRN Q8HRS PRN PO CONGESTION; Start 01/09/17 at 09: 30 Levothyroxine Sodium (Synthroid) 50 mcg DAILYAC PO Last administered on 10:27; Start 01/09/17 at 10:30; Stop 01/11/17 at 08:19; Status DC Tramadol HCl (Ultram) 50 mg PRN Q6HRS PRN PO PAIN Last administered on 18:44; Start 01/09/17 at 09:30 Non-Formulary Medication 2 puff QID INH ; Start 01/09/17 at 13:00; Status UNV Metoprolol Tartrate (Lopressor) 25 mg BID PO Last administered on 01/11/17 21: 38; Start 01/09/17 at 10:30; Stop 01/13/17 at 14:20; Status DC Fluticasone Propionate 2 spray 2 spray DAILY NS Last administered on 01/09/17 10:28; Start 01/09/17 at 10:30; Stop 01/09/17 at 13:10; Status DC Amino Acids/ Electrolytes/ Dextrose (Clinimix E 4.25%-5% Solution) 1,000 ml @ 80 mls/hr [id number] IV Last administered on 01/10/17 01:00; Start 01/09/17 at 10: 30; Stop 01/11/17 at 21:59; Status DC Enoxaparin Sodium (Lovenox 30mg Syringe) 30 mg Q24H SQ ; Start 01/09/17 at 10:00 ; Stop 01/09/17 at 10:00; Status DC Enoxaparin Sodium (Lovenox 30mg Syringe) 30 mg 1X ONCE SQ ; Start 01/09/17 at 10 :00; Stop 01/09/17 at 10:00; Status DC Enoxaparin Sodium (Lovenox 30mg Syringe) 30 mg Q24H SQ ; Start 01/10/17 at 21:00 ; Stop 01/11/17 at 09:42; Status DC Albuterol Sulfate (Ventolin Neb Soln) 2.5 mg RTQID NEB Last administered on 06:08; Start 01/09/17 at 12:00 Fluticasone Propionate (Flonase) 2 spray DAILY NS Last administered on 08:24; Start 01/09/17 at 13:10 Ondansetron HCl (Zofran) 4 mg PRN Q6HRS PRN IV NAUSEA/VOMITING; Start 01/10/17 at 07:30; Stop 01/10/17 at 18:00; Status DC Fentanyl Citrate (Fentanyl 2ml Vial) 25 mcg PRN Q5MIN PRN IV MILD PAIN; Start 01/10/17 at 07:30; Stop 01/10/17 at 18:00; Status DC Fentanyl Citrate 50 mcg 50 mcg PRN Q5MIN PRN IV MODERATE PAIN; Start 01/10/17 at 07:30; Stop 01/10/17 at 18:00; Status DC Lactated Ringer's (Iv Lactated Ringers) 1,000 ml @ 30 mls/hr Q24H IV ; Start at 07:28; Stop 01/10/17 at 19:27; Status DC Prochlorperazine Edisylate (Compazine) 5 mg PACU PRN PRN IV NAUSEA, MRX1; Start 01/10/17 at 07:30; Stop 01/10/17 at 18:00; Status DC Desflurane (Suprane) 90 ml STK-MED ONCE IH ; Start 01/10/17 at 09:03; Stop at 09:04; Status DC Fentanyl Citrate (Fentanyl 2ml Vial) 100 mcg STK-MED ONCE .ROUTE ; Start at 09:03; Stop 01/10/17 at 09:04; Status DC Rocuronium [place] 50 mg 50 mg STK-MED ONCE .ROUTE ; Start 01/10/17 at 09:03; Stop 01/10/17 at 09:04; Status DC Propofol (Diprivan) 20 ml @ As Directed STK-MED ONCE IV ; Start 01/10/17 at 09:04 ; Stop 01/10/17 at 09:05; Status DC Ondansetron HCl (Zofran) 4 mg STK-MED ONCE .ROUTE ; Start 01/10/17 at 09:04; Stop 01/10/17 at 09:05; Status DC Dexamethasone Sodium Phosphate (Decadron) 20 mg STK-MED ONCE .ROUTE ; Start 01/10 at 09:04; Stop 01/10/17 at 09:05; Status DC Lidocaine HCl (Lidocaine HCl 2% Abboject) 100 mg STK-MED ONCE .ROUTE ; Start 01/10/17 at 09:04; Stop 01/10/17 at 09:05; Status DC Phenylephrine HCl (Rodrigue-Synephrine Inj) 10 mg STK-MED ONCE .ROUTE ; Start at 09:27; Stop 01/10/17 at 09:28; Status DC Fentanyl Citrate (Fentanyl 5ml Vial) 250 mcg STK-MED ONCE .ROUTE ; Start at 10:17; Stop 01/10/17 at 10:18; Status DC Rocuronium [place] 50 mg 50 mg STK-MED ONCE .ROUTE ; Start 01/10/17 at 10:26; Stop 01/10/17 at 10:27; Status DC Albumin Human (Plasmanate) 500 ml @ As Directed STK-MED ONCE IV ; Start at 11:32; Stop 01/10/17 at 11:33; Status DC Lorazepam (Ativan) 2 mg STK-MED ONCE .ROUTE ; Start 01/10/17 at 11:38; Stop at 11:39; Status DC Cellulose 1 each 1 each STK-MED ONCE .ROUTE Last administered on 01/10/17 10:23 ; Start 01/10/17 at 12:09; Stop 01/10/17 at 12:10; Status DC Albumin Human (Plasmanate) 500 ml @ As Directed STK-MED ONCE IV ; Start at 12:14; Stop 01/10/17 at 12:15; Status DC Phenylephrine HCl (Rodrigue-Synephrine Inj) 10 mg STK-MED ONCE .ROUTE ; Start at 12:14; Stop 01/10/17 at 12:15; Status DC Cellulose 1 each STK-MED ONCE .ROUTE Last administered on 01/10/17 10:23; Start 01/10/17 at 12:46; Stop 01/10/17 at 12:47; Status DC Lorazepam (Ativan) 2 mg STK-MED ONCE .ROUTE ; Start 01/10/17 at 12:47; Stop at 12:48; Status DC Phenylephrine HCl (Rodrigue-Synephrine Inj) 10 mg STK-MED ONCE .ROUTE ; Start at 12:55; Stop 01/10/17 at 12:56; Status DC Vasopressin (Vasostrict) 20 unit STK-MED ONCE .ROUTE ; Start 01/10/17 at 12:58; Stop 01/10/17 at 12:59; Status DC Norepinephrine Bitartrate (Levophed Vial) 4 mg STK-MED ONCE IV ; Start 01/10/17 at 13:00; Stop 01/10/17 at 13:01; Status DC Norepinephrine Bitartrate (Levophed Vial) 4 mg STK-MED ONCE IV ; Start 01/10/17 at 13:00; Stop 01/10/17 at 13:01; Status DC Rocuronium [place] (Zemuron) 50 mg STK-MED ONCE .ROUTE ; Start 01/10/17 at 13:30 ; Stop 01/10/17 at 13:31; Status DC Famotidine (Pepcid) 20 mg QHS IVP ; Start 01/10/17 at 21:00; Stop 01/11/17 at 08: 15; Status DC Sodium Chloride 3 ml 3 ml QSHIFT PRN IV AFTER MEDS AND BLOOD DRAWS; Start at 13:45; Stop 01/12/17 at 14:37; Status DC Lactated Ringer's (Iv Lactated Ringers) 1,000 ml @ 100 mls/hr Q10H IV Last administered on 01/12/17 05:17; Start 01/10/17 at 13:43; Stop 01/12/17 at 13:21 ; Status DC Morphine Sulfate 1 mg PRN Q1HR PRN IV PAIN Last administered on 01/16/17 13:18 ; Start 01/10/17 at 13:45 Ondansetron HCl (Zofran) 4 mg PRN Q6HRS PRN IV NAUESA, 1ST CHOICE Last administered on 01/16/17 00:22; Start 01/10/17 at 13:45 Cellulose 2 each STK-MED ONCE TP Last administered on 01/10/17 10:23; Start 01/10/17 at 10:23; Stop 01/10/17 at 14:25; Status DC Lorazepam (Ativan) 2 mg STK-MED ONCE .ROUTE ; Start 01/10/17 at 20:59; Stop at 21:00; Status DC Rocuronium [place] 50 mg 50 mg STK-MED ONCE .ROUTE ; Start 01/10/17 at 21:30; Stop 01/10/17 at 21:31; Status DC Cefoxitin Sodium (Mefoxin 2gm Ivpb For Omni) 100 ml @ As Directed STK-MED ONCE IV ; Start 01/10/17 at 21:45; Stop 01/10/17 at 21:46; Status DC Cellulose 1 each STK-MED ONCE .ROUTE Last administered on 01/10/17 21:47; Start 01/10/17 at 21:48; Stop 01/10/17 at 21:49; Status DC Cellulose 2 each STK-MED ONCE TP Last administered on 01/10/17 21:47; Start 01/10/17 at 21:47; Stop 01/10/17 at 22:14; Status DC Sodium Chloride 3 ml 3 ml QSHIFT PRN IV AFTER MEDS AND BLOOD DRAWS; Start at 22:30 Fentanyl Citrate 30 ml @ 0 mls/hr CONT PRN IV PROTOCOL Last administered on 07:44; Start 01/10/17 at 22:30; Stop 01/16/17 at 11:23; Status DC Propofol (Diprivan) 100 ml @ 0 mls/hr CONT PRN IV PER PROTOCOL Last administered on 01/13/17 18:39; Start 01/10/17 at 22:30; Stop 01/16/17 at 11:12 ; Status DC Chlorhexidine Gluconate 15 ml 15 ml BID MM Last administered on 01/15/17 20:49 ; Start 01/11/17 at 09:00; Stop 01/16/17 at 11:22; Status DC Sodium Chloride 1,000 ml @ 1,000 mls/hr 1X ONCE IV Last administered on 02:30; Start 01/11/17 at 02:30; Stop 01/11/17 at 03:29; Status DC Levothyroxine Sodium 25 mcg/ Sodium Chloride 5 ml @ 100 mls/hr DAILY IVP Last administered on 01/19/17 09:13; Start 01/11/17 at 09:00 Sodium Chloride (Iv Sodium Chloride 0.9% 500ml Bag) 500 ml @ 500 mls/hr 1X ONCE IV Last administered on 01/11/17 09:45; Start 01/11/17 at 09:45; Stop at 10:44; Status DC Heparin Sodium (Porcine) 5,000 unit Q8HRS SQ ; Start 01/11/17 at 14:00; Stop 01/11 at 16:45; Status DC Info 1 each 1 each PRN DAILY PRN MC SEE COMMENTS Last administered on 11:09; Start 01/11/17 at 10:15 Norepinephrine Bitartrate 8 mg/ Sodium Chloride 258 ml @ 0 mls/hr CONT PRN IV SEE I/O RECORD Last administered on 01/11/17 12:58; Start 01/11/17 at 11:15; Stop 01/16/17 at 11:22; Status DC Lactated Ringer's 500 ml @ 500 mls/hr PRN Q2HRS PRN IV HYPOTENTION; Start 01/11 at 13:15 Sodium Chloride 500 ml @ 500 mls/hr PRN Q2HR PRN IV hypotention; Start at 13:15 Sodium Acetate/ Potassium Acetate/ Potassium Phosphate/ Magnesium Sulfate/ Calcium Gluconate/ Chromium/Copper/ Manganese/Seleni/ Zn/Total Parenteral Nutrition/Amino Acids/Dextrose/ Fat Emulsion Intravenous (Potassium Phosphate/ Calcium Gluconate/ Multitrace-5 Conc/ Tpn - Tpn Flu... 1,512 ml @ 63 mls/hr TPN CONT IV Last administered on 01/11/17 21:39; Start 01/11/17 at 22:00; Stop 01/12/17 at 21:59; Status DC Info 1 each PRN DAILY PRN MC SEE COMMENTS; Start 01/11/17 at 13:45; Status UNV Cefoxitin Sodium 4 gm 4 gm STK-MED ONCE IV ; Start 01/10/17 at 12:00; Stop at 08:16; Status DC Sodium Chloride (Iv Sodium Chloride 0.9% 1000ml Bag) 1,000 ml @ 60 mls/hr [id number] IV Last administered on 01/17/17 12:21; Start 01/12/17 at 13:15 Insulin Aspart (Novolog) 0-7 UNITS TIDWMEALS SQ Last administered on 01/12/17 17:06; Start 01/12/17 at 17:00; Stop 01/13/17 at 00:28; Status DC Dextrose 12.5 gm 12.5 gm PRN Q15MIN PRN IV SEE COMMENTS; Start 01/12/17 at 13: 30 Magnesium Sulfate/ Dextrose 50 ml @ 25 mls/hr 1X ONCE IV Last administered on 01/12/17 14:16; Start 01/12/17 at 14:00; Stop 01/12/17 at 15:59; Status DC Potassium Phosphate 10 mmol/ Sodium Chloride 103.3333 ml @ 51.667 m... 1X ONCE IV Last administered on 01/12/17 14:16; Start 01/12/17 at 14:00; Stop 07/21 at 15:59; Status DC Sodium Acetate/ Potassium Acetate/ Potassium Phosphate/ Magnesium Sulfate/ Calcium Gluconate/ Chromium/Copper/ Manganese/Seleni/ Zn/Total Parenteral Nutrition/Amino Acids/Dextrose/ Fat Emulsion Intravenous (Potassium Phosphate/ Calcium Gluconate/ Multitrace-5 Conc/ Tpn - Tpn Flu... 1,512 ml @ 63 mls/hr TPN CONT IV Last administered on 01/12/17 22:09; Start 01/12/17 at 22:00; Stop 01/13/17 at 21:59; Status DC Darbepoetin Luis (Aranesp) 60 mcg [id number] SQ Last administered on 01/12/17 22 :09; Start 01/12/17 at 21:00 Insulin Aspart 0-7 UNITS Q6HRS SQ Last administered on 01/18/17 17:30; Start 01/13/17 at 00:30 Piperacillin Sod/ Tazobactam Sod 3.375 gm/Sodium Chloride 50 ml @ 100 mls/hr Q8HRS IV Last administered on 01/13/17 12:07; Start 01/13/17 at 12:00; Stop at 12:55; Status DC Sodium Acetate 70 meq/Potassium Acetate 60 meq/ Potassium Phosphate 20 mmol/ Magnesium Sulfate 15 meq/Calcium Gluconate 10 meq/ Multivitamins 10 ml/Chromium / Copper/Manganese/ Seleni/Zn 1 ml/ Insulin Human Regular 15 unit/ Total Parenteral Nutrition/Amino Acids/Dextrose/ Fat Emulsion Intravenous 1,512 ml @ 63 mls/hr TPN CONT IV Last administered on 01/13/17 22:35; Start 01/13/17 at 22:00; Stop 01/14/17 at 21:59; Status DC Piperacillin Sod/ Tazobactam Sod/ Sodium Chloride (Zosyn/Iv Sodium Chloride 0.9 % 50ml) 50 ml @ 100 mls/hr Q6HRS IV Last administered on 01/19/17 06:23; Start 01/13/17 at 18:00 Metoprolol Tartrate (Lopressor) 5 mg Q6HRS IVP Last administered on 01/18/17 17:22; Start 01/13/17 at 18:00 Dextrose (Dextrose 50%-Water Syringe) 25 gm 1X ONCE IV ; Start 01/13/17 at 16: 45; Stop 01/13/17 at 16:46; Status DC Insulin Detemir 15 units 15 units QHS SQ Last administered on 01/18/17 21:40; Start 01/14/17 at 21:00 Sodium Acetate 70 meq/Potassium Acetate 45 meq/ Potassium Phosphate 20 mmol/ Magnesium Sulfate 15 meq/Calcium Gluconate 10 meq/ Multivitamins 10 ml/Chromium / Copper/Manganese/ Seleni/Zn 1 ml/ Total Parenteral Nutrition/Amino Acids/ Dextrose/ Fat Emulsion Intravenous 1,512 ml @ 63 mls/hr TPN CONT IV Last administered on 01/14/17 21:42; Start 01/14/17 at 22:00; Stop 01/15/17 at 21:59 ; Status DC Sodium Acetate 70 meq/Potassium Acetate 45 meq/ Potassium Phosphate 20 mmol/ Magnesium Sulfate 15 meq/Calcium Gluconate 10 meq/ Multivitamins 10 ml/Chromium / Copper/Manganese/ Seleni/Zn 1 ml/ Total Parenteral Nutrition/Amino Acids/ Dextrose/ Fat Emulsion Intravenous 1,512 ml @ 63 mls/hr TPN CONT IV Last administered on 01/15/17 22:22; Start 01/15/17 at 22:00; Stop 01/16/17 at 21:59 ; Status DC Sodium Acetate 70 meq/Potassium Acetate 45 meq/ Potassium Phosphate 20 mmol/ Magnesium Sulfate 15 meq/Calcium Gluconate 10 meq/ Multivitamins 10 ml/Chromium / Copper/Manganese/ Seleni/Zn 1 ml/ Total Parenteral Nutrition/Amino Acids/ Dextrose/ Fat Emulsion Intravenous 1,512 ml @ 63 mls/hr TPN CONT IV Last administered on 01/16/17 22:28; Start 01/16/17 at 22:00; Stop 01/17/17 at 21:59 ; Status DC Sodium Acetate/ Potassium Acetate/ Potassium Phosphate/ Magnesium Sulfate/ Calcium Gluconate/ Multivitamins/ Chromium/Copper/ Manganese/Seleni/ Zn/Total Parenteral Nutrition/Amino Acids/Dextrose/ Fat Emulsion Intravenous (Potassium Phosphate/Calcium Gluconate/ Infuvite Wild... 1,512 ml @ 63 mls/hr TPN CONT IV Last administered on 01/17/17 21:51; Start 01/17/17 at 22:00; Stop 01/18/17 at 21:59; Status DC Bumetanide (Bumex) 1 mg 1X ONCE IV Last administered on 01/17/17 19:45; Start 01/17/17 at 20:00; Stop 01/17/17 at 20:01; Status DC Bumetanide 1 mg 1 mg 1X ONCE IV Last administered on 01/18/17 04:27; Start at 04:30; Stop 01/18/17 at 04:31; Status DC Sodium Acetate/ Potassium Acetate/ Potassium Phosphate/ Magnesium Sulfate/ Calcium Gluconate/ Multivitamins/ Chromium/Copper/ Manganese/Seleni/ Zn/ Potassium Chloride/Total Parenteral Nutrition/Amino Acids/Dextrose/ Fat Emulsion Intravenous (Potassium Phosphate/Calcium Glucona... 1,512 ml @ 63 mls/ hr TPN CONT IV Last administered on 01/18/17 21:30; Start 01/18/17 at 22:00; Stop 01/19/17 at 21:59 Active Scripts Active Reported Pred Forte (Prednisolone Acetate) 1 Ml Drops.susp 1 Ml OU BID PRN Visine Allergy Relief Drop (Tetrahydrozoline Hcl/Zn Sulf) 15 Ml Drops 1 Drop OU PRN Thera Tears (Carboxymethylcellulose Sodium) 15 Ml Drops 1 Drop OU PRN [id number]-128 (Sodium Chloride) 15 Ml Drops 1 Drop OU PRN Tramadol Hcl 100 Mg Tbmp.24hr 100 Mg PO Q6H PRN Tramadol Hcl 50 Mg Tablet 50 Mg PO Q6H PRN Zyrtec (Cetirizine Hcl) 10 Mg Tablet 10 Mg PO DAILY Nasacort (Triamcinolone Acetonide) 10.8 Ml [place] 2 [place] NS DAILY Proair Hfa Inhaler (Albuterol Sulfate) 8.5 Gm Hfa.aer.ad 2 Puff INH QID Mucinex (Guaifenesin) 600 Mg Tablet.er 600 Mg PO Q8HRS PRN Levothyroxine Sodium 50 Mcg Tablet 50 Mcg PO DAILYAC Dyazide 37.5-25 Capsule (Triamterene/Hydrochlorothiazid) 1 Each Capsule 1 Cap PO DAILY Bystolic (Nebivolol) 5 Mg Tablet 5 Mg PO DAILY Vitals/I & O Vital Sign - Last 24 Hours 01/18/17 01/18/17 01/18/17 01/18/17 11:00 11:09 11:54 15:00 Temp 98.4 98.2 98.4 98.2 Pulse 111 111 98 Resp 24 24 B/P 124/67 124/67 109/67 Pulse Ox 99 97 96 O2 Delivery Nasal Cannula Nasal Cannula Nasal Cannula O2 Flow Rate 4.0 6.0 4.0 01/18/17 01/18/17 01/18/17 01/18/17 15:58 16:46 17:22 18:01 Pulse 100 B/P 129/64 O2 Delivery Nasal Cannula Nasal Cannula Nasal Cannula O2 Flow Rate 6.0 4.0 4.0 01/18/17 01/18/17 01/18/17 01/18/17 18:44 19:00 19:00 19:56 Temp 98.0 98.0 Pulse 86 Resp 20 18 B/P 110/58 Pulse Ox 99 97 O2 Delivery Nasal Cannula Nasal Cannula Nasal Cannula Nasal Cannula O2 Flow Rate 4.0 4.0 6.0 3.0 01/18/17 01/18/17 01/18/17 01/19/17 20:00 21:32 23:21 02:44 Temp 98.2 98.2 Pulse 93 Resp 30 20 30 B/P 115/59 Pulse Ox 95 O2 Delivery Nasal Cannula Nasal Cannula Nasal Cannula Nasal Cannula O2 Flow Rate 3.0 3.0 3.0 2.0 01/19/17 01/19/17 01/19/17 01/19/17 03:00 06:05 06:09 07:20 Temp 98.5 98.5 Pulse 93 101 Resp 20 B/P 111/45 117/54 Pulse Ox 91 O2 Delivery Nasal Cannula Nasal Cannula Nasal Cannula O2 Flow Rate 3.0 3.0 3.0 Intake and Output 01/18/17 01/18/17 01/19/17 15:00 23:00 07:00 Intake Total 200 ml 745 ml Output Total 1800 ml 100 ml Balance 200 ml -1055 ml -100 ml STEF COOPER MD Jan 19, 2017 09:26
[2017-01-19 10:40] VITALS: BP 122/55
[2017-01-19 11:05] LABS: BILIRUBIN,URINE NEGATIVE (NEG); GLUCOSE,URINE NEGATIVE (NEG); NITRITE,URINE NEGATIVE (NEG); PROTEIN,URINE 30 mg/dL (NEG-TRACE); UROBILINOGEN,URINE 0.2 mg/dL (0.2 mg/dL)
[2017-01-19 11:14] LABS: BACTERIA,URINE FEW /HPF (0-FEW); RBC,URINE 0 /HPF (0-2); SQUAMOUS EPITHELIAL CELL,UR FEW /LPF; WBC,URINE OCC /HPF (0-4)
[2017-01-19] MEDS: TPN PER PHARMACY MC PRN (13:17)
--- NOTE | 2017-01-19 13:20 | PDOC ---
G I PROGRESS NOTE Reason for Follow-up Pancreatic cancer S/p Whipple Subjective Patient slowly increasing liquid intake Physical Exam Lungs decreased BS CV S1 S2 ABD +BS, soft, mildly distended, incisions intact Review of Relevant I have reviewed the following items [place] (where applicable) has been applied. Labs Laboratory Tests Test 01/17/17 16:58 01/17/17 23:57 01/18/17 04:26 01/18/17 05:50 Glucose (Fingerstick) 188mg/dL (70-99) 201mg/dL (70-99) 188mg/dL (70-99) White Blood Count 22.0x10^3/uL (4.0-11.0) Red Blood Count 3.57x10^6/uL (3.50-5.40) Hemoglobin 10.3g/dL (12.0-15.5) Hematocrit 31.1% (36.0-47.0) Mean Corpuscular Volume 87fL (79-100) Mean Corpuscular Hemoglobin 29pg (25-35) Mean Corpuscular Hemoglobin Concent 33g/dL (31-37) Red Cell Distribution Width 15.2% (11.5-14.5) Platelet Count 221x10^3/uL (140-400) Neutrophils (%) (Auto) 86% (31-73) Lymphocytes (%) (Auto) 7% (24-48) Monocytes (%) (Auto) 7% (0-9) Eosinophils (%) (Auto) 0% (0-3) Basophils (%) (Auto) 0% (0-3) Neutrophils # (Auto) 18.9x10^3uL (1.8-7.7) Lymphocytes # (Auto) 1.5x10^3/uL (1.0-4.8) Monocytes # (Auto) 1.5x10^3/uL (0.0-1.1) Eosinophils # (Auto) 0.0x10^3/uL (0.0-0.7) Basophils # (Auto) 0.0x10^3/uL (0.0-0.2) Sodium Level 136mmol/L (136-145) Potassium Level 3.3mmol/L (3.5-5.1) Chloride Level 99mmol/L (98-107) Carbon Dioxide Level 29mmol/L (21-32) Anion Gap 8 (6-14) Blood Urea Nitrogen 23mg/dL (7-20) Creatinine 1.1mg/dL (0.6-1.0) Estimated GFR (Cockcroft-Gault) 47.9 Glucose Level 174mg/dL (70-99) Calcium Level 8.0mg/dL (8.5-10.1) ND-Gvo-K-Type Natriuretic Peptide 6377pg/mL (0-449) Test 01/18/17 12:02 01/18/17 17:15 01/18/17 23:58 01/19/17 06:19 Glucose (Fingerstick) 165mg/dL (70-99) 171mg/dL (70-99) 149mg/dL (70-99) 61mg/dL (70-99) Test 01/19/17 06:35 01/19/17 08:27 01/19/17 09:15 01/19/17 12:04 White Blood Count 24.7x10^3/uL (4.0-11.0) Red Blood Count 3.38x10^6/uL (3.50-5.40) Hemoglobin 9.5g/dL (12.0-15.5) Hematocrit 29.1% (36.0-47.0) Mean Corpuscular Volume 86fL (79-100) Mean Corpuscular Hemoglobin 28pg (25-35) Mean Corpuscular Hemoglobin Concent 33g/dL (31-37) Red Cell Distribution Width 15.0% (11.5-14.5) Platelet Count 274x10^3/uL (140-400) Neutrophils (%) (Auto) 85% (31-73) Lymphocytes (%) (Auto) 8% (24-48) Monocytes (%) (Auto) 6% (0-9) Eosinophils (%) (Auto) 1% (0-3) Basophils (%) (Auto) 0% (0-3) Neutrophils # (Auto) 21.0x10^3uL (1.8-7.7) Lymphocytes # (Auto) 2.0x10^3/uL (1.0-4.8) Monocytes # (Auto) 1.4x10^3/uL (0.0-1.1) Eosinophils # (Auto) 0.2x10^3/uL (0.0-0.7) Basophils # (Auto) 0.1x10^3/uL (0.0-0.2) Sodium Level 139mmol/L (136-145) Potassium Level 3.1mmol/L (3.5-5.1) Chloride Level 100mmol/L (98-107) Carbon Dioxide Level 33mmol/L (21-32) Anion Gap 6 (6-14) Blood Urea Nitrogen 26mg/dL (7-20) Creatinine 1.1mg/dL (0.6-1.0) Estimated GFR (Cockcroft-Gault) 47.9 Glucose Level 56mg/dL (70-99) Calcium Level 7.8mg/dL (8.5-10.1) Glucose (Fingerstick) 61mg/dL (70-99) 66mg/dL (70-99) Urine Collection Type Unknown Urine Color Yellow Urine Clarity Clear Urine pH 6.0 Urine Specific [place] 1.025 Urine Protein 30mg/dL (NEG-TRACE) Urine Glucose (UA) Negativemg/dL (NEG) Urine Ketones (Stick) Negativemg/dL (NEG) Urine Blood Trace (NEG) Urine Nitrite Negative (NEG) Urine Bilirubin Negative (NEG) Urine Urobilinogen Dipstick 0.2mg/dL (0.2 mg/dL) Urine Leukocyte Esterase Negative (NEG) Urine RBC 0/HPF (0-2) Urine WBC Occ/HPF (0-4) Urine Squamous Epithelial Cells Few/LPF Urine Bacteria Few/HPF (0-FEW) Urine Hyaline Casts Few/HPF Urine Granular Casts Occasional/HPF Urine Mucus Slight/LPF Laboratory Tests Test 01/18/17 17:15 01/18/17 23:58 01/19/17 06:19 01/19/17 06:35 Glucose (Fingerstick) 171mg/dL (70-99) 149mg/dL (70-99) 61mg/dL (70-99) White Blood Count 24.7x10^3/uL (4.0-11.0) Red Blood Count 3.38x10^6/uL (3.50-5.40) Hemoglobin 9.5g/dL (12.0-15.5) Hematocrit 29.1% (36.0-47.0) Mean Corpuscular Volume 86fL (79-100) Mean Corpuscular Hemoglobin 28pg (25-35) Mean Corpuscular Hemoglobin Concent 33g/dL (31-37) Red Cell Distribution Width 15.0% (11.5-14.5) Platelet Count 274x10^3/uL (140-400) Neutrophils (%) (Auto) 85% (31-73) Lymphocytes (%) (Auto) 8% (24-48) Monocytes (%) (Auto) 6% (0-9) Eosinophils (%) (Auto) 1% (0-3) Basophils (%) (Auto) 0% (0-3) Neutrophils # (Auto) 21.0x10^3uL (1.8-7.7) Lymphocytes # (Auto) 2.0x10^3/uL (1.0-4.8) Monocytes # (Auto) 1.4x10^3/uL (0.0-1.1) Eosinophils # (Auto) 0.2x10^3/uL (0.0-0.7) Basophils # (Auto) 0.1x10^3/uL (0.0-0.2) Sodium Level 139mmol/L (136-145) Potassium Level 3.1mmol/L (3.5-5.1) Chloride Level 100mmol/L (98-107) Carbon Dioxide Level 33mmol/L (21-32) Anion Gap 6 (6-14) Blood Urea Nitrogen 26mg/dL (7-20) Creatinine 1.1mg/dL (0.6-1.0) Estimated GFR (Cockcroft-Gault) 47.9 Glucose Level 56mg/dL (70-99) Calcium Level 7.8mg/dL (8.5-10.1) Test 01/19/17 08:27 01/19/17 09:15 01/19/17 12:04 Glucose (Fingerstick) 61mg/dL (70-99) 66mg/dL (70-99) Urine Collection Type Unknown Urine Color Yellow Urine Clarity Clear Urine pH 6.0 Urine Specific [place] 1.025 Urine Protein 30mg/dL (NEG-TRACE) Urine Glucose (UA) Negativemg/dL (NEG) Urine Ketones (Stick) Negativemg/dL (NEG) Urine Blood Trace (NEG) Urine Nitrite Negative (NEG) Urine Bilirubin Negative (NEG) Urine Urobilinogen Dipstick 0.2mg/dL (0.2 mg/dL) Urine Leukocyte Esterase Negative (NEG) Urine RBC 0/HPF (0-2) Urine WBC Occ/HPF (0-4) Urine Squamous Epithelial Cells Few/LPF Urine Bacteria Few/HPF (0-FEW) Urine Hyaline Casts Few/HPF Urine Granular Casts Occasional/HPF Urine Mucus Slight/LPF Microbiology 01/13/17 Blood Culture - Final, Complete NO GROWTH AFTER 5 DAYS Medications Current Medications Sodium Chloride (Iv Sodium Chloride 0.45%) 1,000 ml @ 80 mls/hr [id number] IV Last administered on 01/08/17 22:17; Start 01/08/17 at 21:03; Stop 01/09/17 at 09: 23; Status DC Ondansetron HCl (Zofran) 4 mg PRN Q6HRS PRN IV NAUSEA/VOMITING Last administered on 01/09/17 15:51; Start 01/08/17 at 21:15; Stop 01/10/17 at 17:41; Status DC Prochlorperazine Edisylate (Compazine) 10 mg PRN Q6HRS PRN IV NAUSEA/VOMITING; Start 01/08/17 at 21:15 Prochlorperazine (Compazine) 25 mg PRN Q12HR PRN [place] NAUSEA/VOMITING; Start 01/08 at 21:15 Al Hydroxide/Mg Hydroxide (Mylanta Plus Xs) 30 ml PRN Q3HRS PRN PO HEARTBURN / GAS; Start 01/08/17 at 21:15 Calcium Carbonate/ Glycine (Tums) 500 mg PRN Q3HRS PRN PO UPSET STOMACH; Start 01/08/17 at 21:15; Stop 01/08/17 at 21:20; Status DC Oxycodone HCl (Roxicodone) 5 mg PRN Q3HRS PRN PO BREAKTHROUGH PAIN Last administered on 01/19/17 02:44; Start 01/08/17 at 21:15 Morphine Sulfate 1 mg PRN Q2HR PRN IV PAIN Last administered on 01/10/17 08:51 ; Start 01/08/17 at 21:15; Stop 01/11/17 at 08:13; Status DC Acetaminophen (Tylenol) 650 mg PRN Q6HRS PRN PO MILD PAIN / TEMP; Start at 21:15 Docusate Sodium (Colace) 100 mg BID PO Last administered on 01/18/17 21:30; Start 01/08/17 at 22:00 Magnesium Hydroxide (Milk Of Magnesia) 2,400 mg PRN Q12HR PRN PO CONSTIPATION; Start 01/08/17 at 21:15 Bisacodyl (Dulcolax Supp) 10 mg PRN DAILY PRN [place] CONSTIPATION; Start 01/08/17 at 21:15 Enoxaparin Sodium (Lovenox 40mg Syringe) 40 mg Q24H SQ ; Start 01/08/17 at 22:00 ; Stop 01/08/17 at 22:00; Status DC Pantoprazole Sodium (Protonix Vial) 40 mg DAILYAC IVP Last administered on 01/19 07:30; Start 01/09/17 at 07:30; Stop 01/19/17 at 11:48; Status DC Enoxaparin Sodium 30 mg 30 mg Q24H SQ Last administered on 01/08/17 22:20; Start 01/08/17 at 22:00; Stop 01/09/17 at 09:24; Status DC Cefoxitin Sodium (Mefoxin 2gm Ivpb For Omni) 100 ml @ 200 mls/hr 1X PERIOP IV ; Start 01/09/17 at 08:45; Stop 01/10/17 at 11:49; Status DC Cetirizine HCl (Zyrtec) 10 mg DAILY PO Last administered on 01/19/17 08:22; Start 01/09/17 at 10:30 Guaifenesin (Mucinex) 600 mg PRN Q8HRS PRN PO CONGESTION; Start 01/09/17 at 09: 30 Levothyroxine Sodium (Synthroid) 50 mcg DAILYAC PO Last administered on 10:27; Start 01/09/17 at 10:30; Stop 01/11/17 at 08:19; Status DC Tramadol HCl (Ultram) 50 mg PRN Q6HRS PRN PO PAIN Last administered on 18:44; Start 01/09/17 at 09:30 Non-Formulary Medication 2 puff QID INH ; Start 01/09/17 at 13:00; Status UNV Metoprolol Tartrate (Lopressor) 25 mg BID PO Last administered on 01/11/17 21: 38; Start 01/09/17 at 10:30; Stop 01/13/17 at 14:20; Status DC Fluticasone Propionate 2 spray 2 spray DAILY NS Last administered on 01/09/17 10:28; Start 01/09/17 at 10:30; Stop 01/09/17 at 13:10; Status DC Amino Acids/ Electrolytes/ Dextrose (Clinimix E 4.25%-5% Solution) 1,000 ml @ 80 mls/hr [id number] IV Last administered on 01/10/17 01:00; Start 01/09/17 at 10: 30; Stop 01/11/17 at 21:59; Status DC Enoxaparin Sodium (Lovenox 30mg Syringe) 30 mg Q24H SQ ; Start 01/09/17 at 10:00 ; Stop 01/09/17 at 10:00; Status DC Enoxaparin Sodium (Lovenox 30mg Syringe) 30 mg 1X ONCE SQ ; Start 01/09/17 at 10 :00; Stop 01/09/17 at 10:00; Status DC Enoxaparin Sodium (Lovenox 30mg Syringe) 30 mg Q24H SQ ; Start 01/10/17 at 21:00 ; Stop 01/11/17 at 09:42; Status DC Albuterol Sulfate (Ventolin Neb Soln) 2.5 mg RTQID NEB Last administered on 12:13; Start 01/09/17 at 12:00 Fluticasone Propionate (Flonase) 2 spray DAILY NS Last administered on 08:24; Start 01/09/17 at 13:10 Ondansetron HCl (Zofran) 4 mg PRN Q6HRS PRN IV NAUSEA/VOMITING; Start 01/10/17 at 07:30; Stop 01/10/17 at 18:00; Status DC Fentanyl Citrate (Fentanyl 2ml Vial) 25 mcg PRN Q5MIN PRN IV MILD PAIN; Start 01/10/17 at 07:30; Stop 01/10/17 at 18:00; Status DC Fentanyl Citrate 50 mcg 50 mcg PRN Q5MIN PRN IV MODERATE PAIN; Start 01/10/17 at 07:30; Stop 01/10/17 at 18:00; Status DC Lactated Ringer's (Iv Lactated Ringers) 1,000 ml @ 30 mls/hr Q24H IV ; Start at 07:28; Stop 01/10/17 at 19:27; Status DC Prochlorperazine Edisylate (Compazine) 5 mg PACU PRN PRN IV NAUSEA, MRX1; Start 01/10/17 at 07:30; Stop 01/10/17 at 18:00; Status DC Desflurane (Suprane) 90 ml STK-MED ONCE IH ; Start 01/10/17 at 09:03; Stop at 09:04; Status DC Fentanyl Citrate (Fentanyl 2ml Vial) 100 mcg STK-MED ONCE .ROUTE ; Start at 09:03; Stop 01/10/17 at 09:04; Status DC Rocuronium [place] 50 mg 50 mg STK-MED ONCE .ROUTE ; Start 01/10/17 at 09:03; Stop 01/10/17 at 09:04; Status DC Propofol (Diprivan) 20 ml @ As Directed STK-MED ONCE IV ; Start 01/10/17 at 09:04 ; Stop 01/10/17 at 09:05; Status DC Ondansetron HCl (Zofran) 4 mg STK-MED ONCE .ROUTE ; Start 01/10/17 at 09:04; Stop 01/10/17 at 09:05; Status DC Dexamethasone Sodium Phosphate (Decadron) 20 mg STK-MED ONCE .ROUTE ; Start 01/10 at 09:04; Stop 01/10/17 at 09:05; Status DC Lidocaine HCl (Lidocaine HCl 2% Abboject) 100 mg STK-MED ONCE .ROUTE ; Start 01/10/17 at 09:04; Stop 01/10/17 at 09:05; Status DC Phenylephrine HCl (Rodrigue-Synephrine Inj) 10 mg STK-MED ONCE .ROUTE ; Start at 09:27; Stop 01/10/17 at 09:28; Status DC Fentanyl Citrate (Fentanyl 5ml Vial) 250 mcg STK-MED ONCE .ROUTE ; Start at 10:17; Stop 01/10/17 at 10:18; Status DC Rocuronium [place] 50 mg 50 mg STK-MED ONCE .ROUTE ; Start 01/10/17 at 10:26; Stop 01/10/17 at 10:27; Status DC Albumin Human (Plasmanate) 500 ml @ As Directed STK-MED ONCE IV ; Start at 11:32; Stop 01/10/17 at 11:33; Status DC Lorazepam (Ativan) 2 mg STK-MED ONCE .ROUTE ; Start 01/10/17 at 11:38; Stop at 11:39; Status DC Cellulose 1 each 1 each STK-MED ONCE .ROUTE Last administered on 01/10/17 10:23 ; Start 01/10/17 at 12:09; Stop 01/10/17 at 12:10; Status DC Albumin Human (Plasmanate) 500 ml @ As Directed STK-MED ONCE IV ; Start at 12:14; Stop 01/10/17 at 12:15; Status DC Phenylephrine HCl (Rodrigue-Synephrine Inj) 10 mg STK-MED ONCE .ROUTE ; Start at 12:14; Stop 01/10/17 at 12:15; Status DC Cellulose 1 each STK-MED ONCE .ROUTE Last administered on 01/10/17 10:23; Start 01/10/17 at 12:46; Stop 01/10/17 at 12:47; Status DC Lorazepam (Ativan) 2 mg STK-MED ONCE .ROUTE ; Start 01/10/17 at 12:47; Stop at 12:48; Status DC Phenylephrine HCl (Rodrigue-Synephrine Inj) 10 mg STK-MED ONCE .ROUTE ; Start at 12:55; Stop 01/10/17 at 12:56; Status DC Vasopressin (Vasostrict) 20 unit STK-MED ONCE .ROUTE ; Start 01/10/17 at 12:58; Stop 01/10/17 at 12:59; Status DC Norepinephrine Bitartrate (Levophed Vial) 4 mg STK-MED ONCE IV ; Start 01/10/17 at 13:00; Stop 01/10/17 at 13:01; Status DC Norepinephrine Bitartrate (Levophed Vial) 4 mg STK-MED ONCE IV ; Start 01/10/17 at 13:00; Stop 01/10/17 at 13:01; Status DC Rocuronium [place] (Zemuron) 50 mg STK-MED ONCE .ROUTE ; Start 01/10/17 at 13:30 ; Stop 01/10/17 at 13:31; Status DC Famotidine (Pepcid) 20 mg QHS IVP ; Start 01/10/17 at 21:00; Stop 01/11/17 at 08: 15; Status DC Sodium Chloride 3 ml 3 ml QSHIFT PRN IV AFTER MEDS AND BLOOD DRAWS; Start at 13:45; Stop 01/12/17 at 14:37; Status DC Lactated Ringer's (Iv Lactated Ringers) 1,000 ml @ 100 mls/hr Q10H IV Last administered on 01/12/17 05:17; Start 01/10/17 at 13:43; Stop 01/12/17 at 13:21 ; Status DC Morphine Sulfate 1 mg PRN Q1HR PRN IV PAIN Last administered on 01/16/17 13:18 ; Start 01/10/17 at 13:45 Ondansetron HCl (Zofran) 4 mg PRN Q6HRS PRN IV NAUESA, 1ST CHOICE Last administered on 01/16/17 00:22; Start 01/10/17 at 13:45 Cellulose 2 each STK-MED ONCE TP Last administered on 01/10/17 10:23; Start 01/10/17 at 10:23; Stop 01/10/17 at 14:25; Status DC Lorazepam (Ativan) 2 mg STK-MED ONCE .ROUTE ; Start 01/10/17 at 20:59; Stop at 21:00; Status DC Rocuronium [place] 50 mg 50 mg STK-MED ONCE .ROUTE ; Start 01/10/17 at 21:30; Stop 01/10/17 at 21:31; Status DC Cefoxitin Sodium (Mefoxin 2gm Ivpb For Omni) 100 ml @ As Directed STK-MED ONCE IV ; Start 01/10/17 at 21:45; Stop 01/10/17 at 21:46; Status DC Cellulose 1 each STK-MED ONCE .ROUTE Last administered on 01/10/17 21:47; Start 01/10/17 at 21:48; Stop 01/10/17 at 21:49; Status DC Cellulose 2 each STK-MED ONCE TP Last administered on 01/10/17 21:47; Start 01/10/17 at 21:47; Stop 01/10/17 at 22:14; Status DC Sodium Chloride 3 ml 3 ml QSHIFT PRN IV AFTER MEDS AND BLOOD DRAWS; Start at 22:30 Fentanyl Citrate 30 ml @ 0 mls/hr CONT PRN IV PROTOCOL Last administered on 07:44; Start 01/10/17 at 22:30; Stop 01/16/17 at 11:23; Status DC Propofol (Diprivan) 100 ml @ 0 mls/hr CONT PRN IV PER PROTOCOL Last administered on 01/13/17 18:39; Start 01/10/17 at 22:30; Stop 01/16/17 at 11:12 ; Status DC Chlorhexidine Gluconate 15 ml 15 ml BID MM Last administered on 01/15/17 20:49 ; Start 01/11/17 at 09:00; Stop 01/16/17 at 11:22; Status DC Sodium Chloride 1,000 ml @ 1,000 mls/hr 1X ONCE IV Last administered on 02:30; Start 01/11/17 at 02:30; Stop 01/11/17 at 03:29; Status DC Levothyroxine Sodium 25 mcg/ Sodium Chloride 5 ml @ 100 mls/hr DAILY IVP Last administered on 01/19/17 09:13; Start 01/11/17 at 09:00; Stop 01/19/17 at 11:49 ; Status DC Sodium Chloride (Iv Sodium Chloride 0.9% 500ml Bag) 500 ml @ 500 mls/hr 1X ONCE IV Last administered on 01/11/17 09:45; Start 01/11/17 at 09:45; Stop at 10:44; Status DC Heparin Sodium (Porcine) 5,000 unit Q8HRS SQ ; Start 01/11/17 at 14:00; Stop 01/11 at 16:45; Status DC Info 1 each 1 each PRN DAILY PRN MC SEE COMMENTS Last administered on 11:09; Start 01/11/17 at 10:15 Norepinephrine Bitartrate 8 mg/ Sodium Chloride 258 ml @ 0 mls/hr CONT PRN IV SEE I/O RECORD Last administered on 01/11/17 12:58; Start 01/11/17 at 11:15; Stop 01/16/17 at 11:22; Status DC Lactated Ringer's 500 ml @ 500 mls/hr PRN Q2HRS PRN IV HYPOTENTION; Start 01/11 at 13:15 Sodium Chloride 500 ml @ 500 mls/hr PRN Q2HR PRN IV hypotention; Start at 13:15 Sodium Acetate/ Potassium Acetate/ Potassium Phosphate/ Magnesium Sulfate/ Calcium Gluconate/ Chromium/Copper/ Manganese/Seleni/ Zn/Total Parenteral Nutrition/Amino Acids/Dextrose/ Fat Emulsion Intravenous (Potassium Phosphate/ Calcium Gluconate/ Multitrace-5 Conc/ Tpn - Tpn Flu... 1,512 ml @ 63 mls/hr TPN CONT IV Last administered on 01/11/17 21:39; Start 01/11/17 at 22:00; Stop 01/12/17 at 21:59; Status DC Info 1 each PRN DAILY PRN MC SEE COMMENTS; Start 01/11/17 at 13:45; Status UNV Cefoxitin Sodium 4 gm 4 gm STK-MED ONCE IV ; Start 01/10/17 at 12:00; Stop at 08:16; Status DC Sodium Chloride (Iv Sodium Chloride 0.9% 1000ml Bag) 1,000 ml @ 60 mls/hr [id number] IV Last administered on 01/17/17 12:21; Start 01/12/17 at 13:15; Stop 01/19/17 at 11:48; Status DC Insulin Aspart (Novolog) 0-7 UNITS TIDWMEALS SQ Last administered on 01/12/17 17:06; Start 01/12/17 at 17:00; Stop 01/13/17 at 00:28; Status DC Dextrose 12.5 gm 12.5 gm PRN Q15MIN PRN IV SEE COMMENTS; Start 01/12/17 at 13: 30 Magnesium Sulfate/ Dextrose 50 ml @ 25 mls/hr 1X ONCE IV Last administered on 01/12/17 14:16; Start 01/12/17 at 14:00; Stop 01/12/17 at 15:59; Status DC Potassium Phosphate 10 mmol/ Sodium Chloride 103.3333 ml @ 51.667 m... 1X ONCE IV Last administered on 01/12/17 14:16; Start 01/12/17 at 14:00; Stop 07/21 at 15:59; Status DC Sodium Acetate/ Potassium Acetate/ Potassium Phosphate/ Magnesium Sulfate/ Calcium Gluconate/ Chromium/Copper/ Manganese/Seleni/ Zn/Total Parenteral Nutrition/Amino Acids/Dextrose/ Fat Emulsion Intravenous (Potassium Phosphate/ Calcium Gluconate/ Multitrace-5 Conc/ Tpn - Tpn Flu... 1,512 ml @ 63 mls/hr TPN CONT IV Last administered on 01/12/17 22:09; Start 01/12/17 at 22:00; Stop 01/13/17 at 21:59; Status DC Darbepoetin Luis (Aranesp) 60 mcg [id number] SQ Last administered on 01/12/17 22 :09; Start 01/12/17 at 21:00 Insulin Aspart 0-7 UNITS Q6HRS SQ Last administered on 01/18/17 17:30; Start 01/13/17 at 00:30 Piperacillin Sod/ Tazobactam Sod 3.375 gm/Sodium Chloride 50 ml @ 100 mls/hr Q8HRS IV Last administered on 01/13/17 12:07; Start 01/13/17 at 12:00; Stop at 12:55; Status DC Sodium Acetate 70 meq/Potassium Acetate 60 meq/ Potassium Phosphate 20 mmol/ Magnesium Sulfate 15 meq/Calcium Gluconate 10 meq/ Multivitamins 10 ml/Chromium / Copper/Manganese/ Seleni/Zn 1 ml/ Insulin Human Regular 15 unit/ Total Parenteral Nutrition/Amino Acids/Dextrose/ Fat Emulsion Intravenous 1,512 ml @ 63 mls/hr TPN CONT IV Last administered on 01/13/17 22:35; Start 01/13/17 at 22:00; Stop 01/14/17 at 21:59; Status DC Piperacillin Sod/ Tazobactam Sod/ Sodium Chloride (Zosyn/Iv Sodium Chloride 0.9 % 50ml) 50 ml @ 100 mls/hr Q6HRS IV Last administered on 01/19/17 12:16; Start 01/13/17 at 18:00 Metoprolol Tartrate (Lopressor) 5 mg Q6HRS IVP Last administered on 01/18/17 17:22; Start 01/13/17 at 18:00; Stop 01/19/17 at 11:50; Status DC Dextrose (Dextrose 50%-Water Syringe) 25 gm 1X ONCE IV ; Start 01/13/17 at 16: 45; Stop 01/13/17 at 16:46; Status DC Insulin Detemir 15 units 15 units QHS SQ Last administered on 01/18/17 21:40; Start 01/14/17 at 21:00; Stop 01/19/17 at 11:14; Status DC Sodium Acetate 70 meq/Potassium Acetate 45 meq/ Potassium Phosphate 20 mmol/ Magnesium Sulfate 15 meq/Calcium Gluconate 10 meq/ Multivitamins 10 ml/Chromium / Copper/Manganese/ Seleni/Zn 1 ml/ Total Parenteral Nutrition/Amino Acids/ Dextrose/ Fat Emulsion Intravenous 1,512 ml @ 63 mls/hr TPN CONT IV Last administered on 01/14/17 21:42; Start 01/14/17 at 22:00; Stop 01/15/17 at 21:59 ; Status DC Sodium Acetate 70 meq/Potassium Acetate 45 meq/ Potassium Phosphate 20 mmol/ Magnesium Sulfate 15 meq/Calcium Gluconate 10 meq/ Multivitamins 10 ml/Chromium / Copper/Manganese/ Seleni/Zn 1 ml/ Total Parenteral Nutrition/Amino Acids/ Dextrose/ Fat Emulsion Intravenous 1,512 ml @ 63 mls/hr TPN CONT IV Last administered on 01/15/17 22:22; Start 01/15/17 at 22:00; Stop 01/16/17 at 21:59 ; Status DC Sodium Acetate 70 meq/Potassium Acetate 45 meq/ Potassium Phosphate 20 mmol/ Magnesium Sulfate 15 meq/Calcium Gluconate 10 meq/ Multivitamins 10 ml/Chromium / Copper/Manganese/ Seleni/Zn 1 ml/ Total Parenteral Nutrition/Amino Acids/ Dextrose/ Fat Emulsion Intravenous 1,512 ml @ 63 mls/hr TPN CONT IV Last administered on 01/16/17 22:28; Start 01/16/17 at 22:00; Stop 01/17/17 at 21:59 ; Status DC Sodium Acetate/ Potassium Acetate/ Potassium Phosphate/ Magnesium Sulfate/ Calcium Gluconate/ Multivitamins/ Chromium/Copper/ Manganese/Seleni/ Zn/Total Parenteral Nutrition/Amino Acids/Dextrose/ Fat Emulsion Intravenous (Potassium Phosphate/Calcium Gluconate/ Infuvite Wild... 1,512 ml @ 63 mls/hr TPN CONT IV Last administered on 01/17/17 21:51; Start 01/17/17 at 22:00; Stop 01/18/17 at 21:59; Status DC Bumetanide (Bumex) 1 mg 1X ONCE IV Last administered on 01/17/17 19:45; Start 01/17/17 at 20:00; Stop 01/17/17 at 20:01; Status DC Bumetanide 1 mg 1 mg 1X ONCE IV Last administered on 01/18/17 04:27; Start at 04:30; Stop 01/18/17 at 04:31; Status DC Sodium Acetate/ Potassium Acetate/ Potassium Phosphate/ Magnesium Sulfate/ Calcium Gluconate/ Multivitamins/ Chromium/Copper/ Manganese/Seleni/ Zn/ Potassium Chloride/Total Parenteral Nutrition/Amino Acids/Dextrose/ Fat Emulsion Intravenous (Potassium Phosphate/Calcium Glucona... 1,512 ml @ 63 mls/ hr TPN CONT IV Last administered on 01/18/17 21:30; Start 01/18/17 at 22:00; Stop 01/19/17 at 21:59 Insulin Detemir (Levemir) 10 units QHS SQ ; Start 01/19/17 at 21:00 Pantoprazole Sodium (Protonix) 40 mg DAILYAC PO ; Start 01/20/17 at 07:30 Levothyroxine Sodium (Synthroid) 50 mcg DAILY07 PO ; Start 01/20/17 at 07:00 Metoprolol Tartrate 25 mg 25 mg BID PO ; Start 01/19/17 at 21:00 Sodium Chloride/ Potassium Chloride/ Potassium Acetate/ Potassium Phosphate/ Magnesium Sulfate/ Calcium Gluconate/ Multivitamins/ Chromium/Copper/ Manganese/ Seleni/ Zn/Total Parenteral Nutrition/Amino Acids/Dextrose/ Fat Emulsion Intravenous (Sodium Chloride/ Potass... 1,512 ml @ 63 mls/hr TPN CONT IV ; Start 01/19/17 at 22:00; Stop 01/20/17 at 21:59 Active Scripts Active Reported Pred Forte (Prednisolone Acetate) 1 Ml Drops.susp 1 Ml OU BID PRN Visine Allergy Relief Drop (Tetrahydrozoline Hcl/Zn Sulf) 15 Ml Drops 1 Drop OU PRN Thera Tears (Carboxymethylcellulose Sodium) 15 Ml Drops 1 Drop OU PRN Jaime-128 (Sodium Chloride) 15 Ml Drops 1 Drop OU PRN Tramadol Hcl 100 Mg Tbmp.24hr 100 Mg PO Q6H PRN Tramadol Hcl 50 Mg Tablet 50 Mg PO Q6H PRN Zyrtec (Cetirizine Hcl) 10 Mg Tablet 10 Mg PO DAILY Nasacort (Triamcinolone Acetonide) 10.8 Ml Bentley 2 Bentley NS DAILY Proair Hfa Inhaler (Albuterol Sulfate) 8.5 Gm Hfa.aer.ad 2 Puff INH QID Mucinex (Guaifenesin) 600 Mg Tablet.er 600 Mg PO Q8HRS PRN Levothyroxine Sodium 50 Mcg Tablet 50 Mcg PO DAILYAC Dyazide 37.5-25 Capsule (Triamterene/Hydrochlorothiazid) 1 Each Capsule 1 Cap PO DAILY Bystolic (Nebivolol) 5 Mg Tablet 5 Mg PO DAILY Vitals/I & O Vital Sign - Last 24 Hours 01/18/17 01/18/17 01/18/17 01/18/17 15:00 15:58 16:46 17:22 Temp 98.2 98.2 Pulse 98 100 Resp 24 B/P 109/67 129/64 Pulse Ox 96 O2 Delivery Nasal Cannula Nasal Cannula Nasal Cannula O2 Flow Rate 4.0 6.0 4.0 01/18/17 01/18/17 01/18/17 01/18/17 18:01 18:44 19:00 19:00 Temp 98.0 98.0 Pulse 86 Resp 20 B/P 110/58 Pulse Ox 99 97 O2 Delivery Nasal Cannula Nasal Cannula Nasal Cannula Nasal Cannula O2 Flow Rate 4.0 4.0 4.0 6.0 01/18/17 01/18/17 01/18/17 01/18/17 19:56 20:00 21:32 23:21 Temp 98.2 98.2 Pulse 93 Resp 18 30 20 B/P 115/59 Pulse Ox 95 O2 Delivery Nasal Cannula Nasal Cannula Nasal Cannula Nasal Cannula O2 Flow Rate 3.0 3.0 3.0 3.0 01/19/17 01/19/17 01/19/17 01/19/17 02:44 03:00 06:05 06:09 Temp 98.5 98.5 Pulse 93 101 Resp 30 20 B/P 111/45 117/54 Pulse Ox 91 O2 Delivery Nasal Cannula Nasal Cannula Nasal Cannula O2 Flow Rate 2.0 3.0 3.0 01/19/17 01/19/17 01/19/17 07:20 10:40 12:13 Temp 98.8 98.8 Pulse 98 Resp 18 B/P 122/55 Pulse Ox 97 96 O2 Delivery Nasal Cannula Nasal Cannula Nasal Cannula O2 Flow Rate 3.0 3.0 3.0 Intake and Output 01/18/17 01/18/17 01/19/17 15:00 23:00 07:00 Intake Total 200 ml 745 ml Output Total 1800 ml 100 ml Balance 200 ml -1055 ml -100 ml Problem List Problems Medical Problems: (1) Pancreatic mass Status: Acute Assessment S/P Whipple- with metastatic pancreatic ca, advance diet and activity as tolerated TIFFANI PERES MD Jan 19, 2017 13:19
--- NOTE | 2017-01-19 13:58 | PDOC ---
PROGRESS NOTES Chief Complaint Chief Complaint Pancreatic mass w/obstruction ASSESSMENT AND PLAN: s/p palliative resection of pancreatic Ca on 01/[address] Jenkins. extensive lysis of adhesions, partial colectomy, extended small-bowel resection, left nephrectomy, splenectomy, distal pancreatectomy, partial gastrectomy Anemia: acute blood loss and chronic inflammation. stable - sl improved Leukocytosis: persistent. unclear etiology. no infectious source apparent, blood cult from 01/13 NG. remains on empiric Abx Thrombocytopenia: resolved Coagulopathy: resolved SIRS: resolved DM: fair control while on TPN. Nutrition: started on clear liquids, tolerating. advance to full liquids, keep TPN for now 2/2 malnutrition until full PO FREDIS: resolved HTN: well controlled off meds asthma: nebs PRN plan: fu with gi, sx, onco on full liquid, tpn decrease levemir to 10u qhs, ssi repeat CXR tmr path still pending ptot poor prognosis hope dc to LTAC in 1-2 days History of Present Illness History of Present Illness hypoglycemia on full liquid , low po intake, still on TPN sob slightly better feels very weak Vitals Vitals Vital Signs Date Time Temp Pulse Resp B/P Pulse Ox O2 Delivery O2 Flow Rate FiO2 01/19/17 12:13 96 Nasal Cannula 3.0 01/19/17 10:40 98.8 98 18 122/55 98.8 Physical Exam General: Alert, Oriented X3 Heart: Normal S1, Normal S2 Lungs: Crackles (bl basilar mild crackles), Other Abdomen: Soft, Other (ileostomy with liquid stool, incision c/d/i, no erythema , ) Extremities: No clubbing, No cyanosis, Other (bl leg 2+ edema) Skin: No rashes, No significant lesion, Other (dressing clean, dry, and intact. ) Labs LABS Laboratory Tests Test 01/18/17 17:15 01/18/17 23:58 01/19/17 06:19 01/19/17 06:35 Glucose (Fingerstick) 171mg/dL (70-99) 149mg/dL (70-99) 61mg/dL (70-99) White Blood Count 24.7x10^3/uL (4.0-11.0) Red Blood Count 3.38x10^6/uL (3.50-5.40) Hemoglobin 9.5g/dL (12.0-15.5) Hematocrit 29.1% (36.0-47.0) Mean Corpuscular Volume 86fL (79-100) Mean Corpuscular Hemoglobin 28pg (25-35) Mean Corpuscular Hemoglobin Concent 33g/dL (31-37) Red Cell Distribution Width 15.0% (11.5-14.5) Platelet Count 274x10^3/uL (140-400) Neutrophils (%) (Auto) 85% (31-73) Lymphocytes (%) (Auto) 8% (24-48) Monocytes (%) (Auto) 6% (0-9) Eosinophils (%) (Auto) 1% (0-3) Basophils (%) (Auto) 0% (0-3) Neutrophils # (Auto) 21.0x10^3uL (1.8-7.7) Lymphocytes # (Auto) 2.0x10^3/uL (1.0-4.8) Monocytes # (Auto) 1.4x10^3/uL (0.0-1.1) Eosinophils # (Auto) 0.2x10^3/uL (0.0-0.7) Basophils # (Auto) 0.1x10^3/uL (0.0-0.2) Sodium Level 139mmol/L (136-145) Potassium Level 3.1mmol/L (3.5-5.1) Chloride Level 100mmol/L (98-107) Carbon Dioxide Level 33mmol/L (21-32) Anion Gap 6 (6-14) Blood Urea Nitrogen 26mg/dL (7-20) Creatinine 1.1mg/dL (0.6-1.0) Estimated GFR (Cockcroft-Gault) 47.9 Glucose Level 56mg/dL (70-99) Calcium Level 7.8mg/dL (8.5-10.1) Test 01/19/17 08:27 01/19/17 09:15 01/19/17 12:04 Glucose (Fingerstick) 61mg/dL (70-99) 66mg/dL (70-99) Urine Collection Type Unknown Urine Color Yellow Urine Clarity Clear Urine pH 6.0 Urine Specific [place] 1.025 Urine Protein 30mg/dL (NEG-TRACE) Urine Glucose (UA) Negativemg/dL (NEG) Urine Ketones (Stick) Negativemg/dL (NEG) Urine Blood Trace (NEG) Urine Nitrite Negative (NEG) Urine Bilirubin Negative (NEG) Urine Urobilinogen Dipstick 0.2mg/dL (0.2 mg/dL) Urine Leukocyte Esterase Negative (NEG) Urine RBC 0/HPF (0-2) Urine WBC Occ/HPF (0-4) Urine Squamous Epithelial Cells Few/LPF Urine Bacteria Few/HPF (0-FEW) Urine Hyaline Casts Few/HPF Urine Granular Casts Occasional/HPF Urine Mucus Slight/LPF Review of Systems Review of Systems no fever, chills, chest pain Assessment and Plan Assessmemt and Plan Problems Medical Problems: (1) Pancreatic mass Status: Acute Problems: Comment Review of Relevant I have reviewed the following items [place] (where applicable) has been applied. Labs Laboratory Tests Test 01/17/17 16:58 01/17/17 23:57 01/18/17 04:26 01/18/17 05:50 Glucose (Fingerstick) 188mg/dL (70-99) 201mg/dL (70-99) 188mg/dL (70-99) White Blood Count 22.0x10^3/uL (4.0-11.0) Red Blood Count 3.57x10^6/uL (3.50-5.40) Hemoglobin 10.3g/dL (12.0-15.5) Hematocrit 31.1% (36.0-47.0) Mean Corpuscular Volume 87fL (79-100) Mean Corpuscular Hemoglobin 29pg (25-35) Mean Corpuscular Hemoglobin Concent 33g/dL (31-37) Red Cell Distribution Width 15.2% (11.5-14.5) Platelet Count 221x10^3/uL (140-400) Neutrophils (%) (Auto) 86% (31-73) Lymphocytes (%) (Auto) 7% (24-48) Monocytes (%) (Auto) 7% (0-9) Eosinophils (%) (Auto) 0% (0-3) Basophils (%) (Auto) 0% (0-3) Neutrophils # (Auto) 18.9x10^3uL (1.8-7.7) Lymphocytes # (Auto) 1.5x10^3/uL (1.0-4.8) Monocytes # (Auto) 1.5x10^3/uL (0.0-1.1) Eosinophils # (Auto) 0.0x10^3/uL (0.0-0.7) Basophils # (Auto) 0.0x10^3/uL (0.0-0.2) Sodium Level 136mmol/L (136-145) Potassium Level 3.3mmol/L (3.5-5.1) Chloride Level 99mmol/L (98-107) Carbon Dioxide Level 29mmol/L (21-32) Anion Gap 8 (6-14) Blood Urea Nitrogen 23mg/dL (7-20) Creatinine 1.1mg/dL (0.6-1.0) Estimated GFR (Cockcroft-Gault) 47.9 Glucose Level 174mg/dL (70-99) Calcium Level 8.0mg/dL (8.5-10.1) DM-Huz-Y-Type Natriuretic Peptide 6377pg/mL (0-449) Test 01/18/17 12:02 01/18/17 17:15 01/18/17 23:58 01/19/17 06:19 Glucose (Fingerstick) 165mg/dL (70-99) 171mg/dL (70-99) 149mg/dL (70-99) 61mg/dL (70-99) Test 01/19/17 06:35 01/19/17 08:27 01/19/17 09:15 01/19/17 12:04 White Blood Count 24.7x10^3/uL (4.0-11.0) Red Blood Count 3.38x10^6/uL (3.50-5.40) Hemoglobin 9.5g/dL (12.0-15.5) Hematocrit 29.1% (36.0-47.0) Mean Corpuscular Volume 86fL (79-100) Mean Corpuscular Hemoglobin 28pg (25-35) Mean Corpuscular Hemoglobin Concent 33g/dL (31-37) Red Cell Distribution Width 15.0% (11.5-14.5) Platelet Count 274x10^3/uL (140-400) Neutrophils (%) (Auto) 85% (31-73) Lymphocytes (%) (Auto) 8% (24-48) Monocytes (%) (Auto) 6% (0-9) Eosinophils (%) (Auto) 1% (0-3) Basophils (%) (Auto) 0% (0-3) Neutrophils # (Auto) 21.0x10^3uL (1.8-7.7) Lymphocytes # (Auto) 2.0x10^3/uL (1.0-4.8) Monocytes # (Auto) 1.4x10^3/uL (0.0-1.1) Eosinophils # (Auto) 0.2x10^3/uL (0.0-0.7) Basophils # (Auto) 0.1x10^3/uL (0.0-0.2) Sodium Level 139mmol/L (136-145) Potassium Level 3.1mmol/L (3.5-5.1) Chloride Level 100mmol/L (98-107) Carbon Dioxide Level 33mmol/L (21-32) Anion Gap 6 (6-14) Blood Urea Nitrogen 26mg/dL (7-20) Creatinine 1.1mg/dL (0.6-1.0) Estimated GFR (Cockcroft-Gault) 47.9 Glucose Level 56mg/dL (70-99) Calcium Level 7.8mg/dL (8.5-10.1) Glucose (Fingerstick) 61mg/dL (70-99) 66mg/dL (70-99) Urine Collection Type Unknown Urine Color Yellow Urine Clarity Clear Urine pH 6.0 Urine Specific [place] 1.025 Urine Protein 30mg/dL (NEG-TRACE) Urine Glucose (UA) Negativemg/dL (NEG) Urine Ketones (Stick) Negativemg/dL (NEG) Urine Blood Trace (NEG) Urine Nitrite Negative (NEG) Urine Bilirubin Negative (NEG) Urine Urobilinogen Dipstick 0.2mg/dL (0.2 mg/dL) Urine Leukocyte Esterase Negative (NEG) Urine RBC 0/HPF (0-2) Urine WBC Occ/HPF (0-4) Urine Squamous Epithelial Cells Few/LPF Urine Bacteria Few/HPF (0-FEW) Urine Hyaline Casts Few/HPF Urine Granular Casts Occasional/HPF Urine Mucus Slight/LPF Laboratory Tests Test 01/18/17 17:15 01/18/17 23:58 01/19/17 06:19 01/19/17 06:35 Glucose (Fingerstick) 171mg/dL (70-99) 149mg/dL (70-99) 61mg/dL (70-99) White Blood Count 24.7x10^3/uL (4.0-11.0) Red Blood Count 3.38x10^6/uL (3.50-5.40) Hemoglobin 9.5g/dL (12.0-15.5) Hematocrit 29.1% (36.0-47.0) Mean Corpuscular Volume 86fL (79-100) Mean Corpuscular Hemoglobin 28pg (25-35) Mean Corpuscular Hemoglobin Concent 33g/dL (31-37) Red Cell Distribution Width 15.0% (11.5-14.5) Platelet Count 274x10^3/uL (140-400) Neutrophils (%) (Auto) 85% (31-73) Lymphocytes (%) (Auto) 8% (24-48) Monocytes (%) (Auto) 6% (0-9) Eosinophils (%) (Auto) 1% (0-3) Basophils (%) (Auto) 0% (0-3) Neutrophils # (Auto) 21.0x10^3uL (1.8-7.7) Lymphocytes # (Auto) 2.0x10^3/uL (1.0-4.8) Monocytes # (Auto) 1.4x10^3/uL (0.0-1.1) Eosinophils # (Auto) 0.2x10^3/uL (0.0-0.7) Basophils # (Auto) 0.1x10^3/uL (0.0-0.2) Sodium Level 139mmol/L (136-145) Potassium Level 3.1mmol/L (3.5-5.1) Chloride Level 100mmol/L (98-107) Carbon Dioxide Level 33mmol/L (21-32) Anion Gap 6 (6-14) Blood Urea Nitrogen 26mg/dL (7-20) Creatinine 1.1mg/dL (0.6-1.0) Estimated GFR (Cockcroft-Gault) 47.9 Glucose Level 56mg/dL (70-99) Calcium Level 7.8mg/dL (8.5-10.1) Test 01/19/17 08:27 01/19/17 09:15 01/19/17 12:04 Glucose (Fingerstick) 61mg/dL (70-99) 66mg/dL (70-99) Urine Collection Type Unknown Urine Color Yellow Urine Clarity Clear Urine pH 6.0 Urine Specific [place] 1.025 Urine Protein 30mg/dL (NEG-TRACE) Urine Glucose (UA) Negativemg/dL (NEG) Urine Ketones (Stick) Negativemg/dL (NEG) Urine Blood Trace (NEG) Urine Nitrite Negative (NEG) Urine Bilirubin Negative (NEG) Urine Urobilinogen Dipstick 0.2mg/dL (0.2 mg/dL) Urine Leukocyte Esterase Negative (NEG) Urine RBC 0/HPF (0-2) Urine WBC Occ/HPF (0-4) Urine Squamous Epithelial Cells Few/LPF Urine Bacteria Few/HPF (0-FEW) Urine Hyaline Casts Few/HPF Urine Granular Casts Occasional/HPF Urine Mucus Slight/LPF Microbiology 01/13/17 Blood Culture - Final, Complete NO GROWTH AFTER 5 DAYS Medications Current Medications Sodium Chloride (Iv Sodium Chloride 0.45%) 1,000 ml @ 80 mls/hr [id number] IV Last administered on 01/08/17 22:17; Start 01/08/17 at 21:03; Stop 01/09/17 at 09: 23; Status DC Ondansetron HCl (Zofran) 4 mg PRN Q6HRS PRN IV NAUSEA/VOMITING Last administered on 01/09/17 15:51; Start 01/08/17 at 21:15; Stop 01/10/17 at 17:41; Status DC Prochlorperazine Edisylate (Compazine) 10 mg PRN Q6HRS PRN IV NAUSEA/VOMITING; Start 01/08/17 at 21:15 Prochlorperazine (Compazine) 25 mg PRN Q12HR PRN [place] NAUSEA/VOMITING; Start 01/08 at 21:15 Al Hydroxide/Mg Hydroxide (Mylanta Plus Xs) 30 ml PRN Q3HRS PRN PO HEARTBURN / GAS; Start 01/08/17 at 21:15 Calcium Carbonate/ Glycine (Tums) 500 mg PRN Q3HRS PRN PO UPSET STOMACH; Start 01/08/17 at 21:15; Stop 01/08/17 at 21:20; Status DC Oxycodone HCl (Roxicodone) 5 mg PRN Q3HRS PRN PO BREAKTHROUGH PAIN Last administered on 01/19/17 02:44; Start 01/08/17 at 21:15 Morphine Sulfate 1 mg PRN Q2HR PRN IV PAIN Last administered on 01/10/17 08:51 ; Start 01/08/17 at 21:15; Stop 01/11/17 at 08:13; Status DC Acetaminophen (Tylenol) 650 mg PRN Q6HRS PRN PO MILD PAIN / TEMP; Start at 21:15 Docusate Sodium (Colace) 100 mg BID PO Last administered on 01/18/17 21:30; Start 01/08/17 at 22:00 Magnesium Hydroxide (Milk Of Magnesia) 2,400 mg PRN Q12HR PRN PO CONSTIPATION; Start 01/08/17 at 21:15 Bisacodyl (Dulcolax Supp) 10 mg PRN DAILY PRN [place] CONSTIPATION; Start 01/08/17 at 21:15 Enoxaparin Sodium (Lovenox 40mg Syringe) 40 mg Q24H SQ ; Start 01/08/17 at 22:00 ; Stop 01/08/17 at 22:00; Status DC Pantoprazole Sodium (Protonix Vial) 40 mg DAILYAC IVP Last administered on 01/19 07:30; Start 01/09/17 at 07:30; Stop 01/19/17 at 11:48; Status DC Enoxaparin Sodium 30 mg 30 mg Q24H SQ Last administered on 01/08/17 22:20; Start 01/08/17 at 22:00; Stop 01/09/17 at 09:24; Status DC Cefoxitin Sodium (Mefoxin 2gm Ivpb For Omni) 100 ml @ 200 mls/hr 1X PERIOP IV ; Start 01/09/17 at 08:45; Stop 01/10/17 at 11:49; Status DC Cetirizine HCl (Zyrtec) 10 mg DAILY PO Last administered on 01/19/17 08:22; Start 01/09/17 at 10:30 Guaifenesin (Mucinex) 600 mg PRN Q8HRS PRN PO CONGESTION; Start 01/09/17 at 09: 30 Levothyroxine Sodium (Synthroid) 50 mcg DAILYAC PO Last administered on 10:27; Start 01/09/17 at 10:30; Stop 01/11/17 at 08:19; Status DC Tramadol HCl (Ultram) 50 mg PRN Q6HRS PRN PO PAIN Last administered on 18:44; Start 01/09/17 at 09:30 Non-Formulary Medication 2 puff QID INH ; Start 01/09/17 at 13:00; Status UNV Metoprolol Tartrate (Lopressor) 25 mg BID PO Last administered on 01/11/17 21: 38; Start 01/09/17 at 10:30; Stop 01/13/17 at 14:20; Status DC Fluticasone Propionate 2 spray 2 spray DAILY NS Last administered on 01/09/17 10:28; Start 01/09/17 at 10:30; Stop 01/09/17 at 13:10; Status DC Amino Acids/ Electrolytes/ Dextrose (Clinimix E 4.25%-5% Solution) 1,000 ml @ 80 mls/hr [id number] IV Last administered on 01/10/17 01:00; Start 01/09/17 at 10: 30; Stop 01/11/17 at 21:59; Status DC Enoxaparin Sodium (Lovenox 30mg Syringe) 30 mg Q24H SQ ; Start 01/09/17 at 10:00 ; Stop 01/09/17 at 10:00; Status DC Enoxaparin Sodium (Lovenox 30mg Syringe) 30 mg 1X ONCE SQ ; Start 01/09/17 at 10 :00; Stop 01/09/17 at 10:00; Status DC Enoxaparin Sodium (Lovenox 30mg Syringe) 30 mg Q24H SQ ; Start 01/10/17 at 21:00 ; Stop 01/11/17 at 09:42; Status DC Albuterol Sulfate (Ventolin Neb Soln) 2.5 mg RTQID NEB Last administered on 12:13; Start 01/09/17 at 12:00 Fluticasone Propionate (Flonase) 2 spray DAILY NS Last administered on 4/17/ 17at 08:24; Start 01/09/17 at 13:10 Ondansetron HCl (Zofran) 4 mg PRN Q6HRS PRN IV NAUSEA/VOMITING; Start 01/10/17 at 07:30; Stop 01/10/17 at 18:00; Status DC Fentanyl Citrate (Fentanyl 2ml Vial) 25 mcg PRN Q5MIN PRN IV MILD PAIN; Start 01/10/17 at 07:30; Stop 01/10/17 at 18:00; Status DC Fentanyl Citrate 50 mcg 50 mcg PRN Q5MIN PRN IV MODERATE PAIN; Start 01/10/17 at 07:30; Stop 01/10/17 at 18:00; Status DC Lactated Ringer's (Iv Lactated Ringers) 1,000 ml @ 30 mls/hr Q24H IV ; Start at 07:28; Stop 01/10/17 at 19:27; Status DC Prochlorperazine Edisylate (Compazine) 5 mg PACU PRN PRN IV NAUSEA, MRX1; Start 01/10/17 at 07:30; Stop 01/10/17 at 18:00; Status DC Desflurane (Suprane) 90 ml STK-MED ONCE IH ; Start 01/10/17 at 09:03; Stop at 09:04; Status DC Fentanyl Citrate (Fentanyl 2ml Vial) 100 mcg STK-MED ONCE .ROUTE ; Start at 09:03; Stop 01/10/17 at 09:04; Status DC Rocuronium [place] 50 mg 50 mg STK-MED ONCE .ROUTE ; Start 01/10/17 at 09:03; Stop 01/10/17 at 09:04; Status DC Propofol (Diprivan) 20 ml @ As Directed STK-MED ONCE IV ; Start 01/10/17 at 09:04 ; Stop 01/10/17 at 09:05; Status DC Ondansetron HCl (Zofran) 4 mg STK-MED ONCE .ROUTE ; Start 01/10/17 at 09:04; Stop 01/10/17 at 09:05; Status DC Dexamethasone Sodium Phosphate (Decadron) 20 mg STK-MED ONCE .ROUTE ; Start 01/10 at 09:04; Stop 01/10/17 at 09:05; Status DC Lidocaine HCl (Lidocaine HCl 2% Abboject) 100 mg STK-MED ONCE .ROUTE ; Start 01/10/17 at 09:04; Stop 01/10/17 at 09:05; Status DC Phenylephrine HCl (Rodrigue-Synephrine Inj) 10 mg STK-MED ONCE .ROUTE ; Start at 09:27; Stop 01/10/17 at 09:28; Status DC Fentanyl Citrate (Fentanyl 5ml Vial) 250 mcg STK-MED ONCE .ROUTE ; Start at 10:17; Stop 01/10/17 at 10:18; Status DC Rocuronium [place] 50 mg 50 mg STK-MED ONCE .ROUTE ; Start 01/10/17 at 10:26; Stop 01/10/17 at 10:27; Status DC Albumin Human (Plasmanate) 500 ml @ As Directed STK-MED ONCE IV ; Start at 11:32; Stop 01/10/17 at 11:33; Status DC Lorazepam (Ativan) 2 mg STK-MED ONCE .ROUTE ; Start 01/10/17 at 11:38; Stop at 11:39; Status DC Cellulose 1 each 1 each STK-MED ONCE .ROUTE Last administered on 01/10/17 10:23 ; Start 01/10/17 at 12:09; Stop 01/10/17 at 12:10; Status DC Albumin Human (Plasmanate) 500 ml @ As Directed STK-MED ONCE IV ; Start at 12:14; Stop 01/10/17 at 12:15; Status DC Phenylephrine HCl (Rodrigue-Synephrine Inj) 10 mg STK-MED ONCE .ROUTE ; Start at 12:14; Stop 01/10/17 at 12:15; Status DC Cellulose 1 each STK-MED ONCE .ROUTE Last administered on 01/10/17 10:23; Start 01/10/17 at 12:46; Stop 01/10/17 at 12:47; Status DC Lorazepam (Ativan) 2 mg STK-MED ONCE .ROUTE ; Start 01/10/17 at 12:47; Stop at 12:48; Status DC Phenylephrine HCl (Rodrigue-Synephrine Inj) 10 mg STK-MED ONCE .ROUTE ; Start at 12:55; Stop 01/10/17 at 12:56; Status DC Vasopressin (Vasostrict) 20 unit STK-MED ONCE .ROUTE ; Start 01/10/17 at 12:58; Stop 01/10/17 at 12:59; Status DC Norepinephrine Bitartrate (Levophed Vial) 4 mg STK-MED ONCE IV ; Start 01/10/17 at 13:00; Stop 01/10/17 at 13:01; Status DC Norepinephrine Bitartrate (Levophed Vial) 4 mg STK-MED ONCE IV ; Start 01/10/17 at 13:00; Stop 01/10/17 at 13:01; Status DC Rocuronium [place] (Zemuron) 50 mg STK-MED ONCE .ROUTE ; Start 01/10/17 at 13:30 ; Stop 01/10/17 at 13:31; Status DC Famotidine (Pepcid) 20 mg QHS IVP ; Start 01/10/17 at 21:00; Stop 01/11/17 at 08: 15; Status DC Sodium Chloride 3 ml 3 ml QSHIFT PRN IV AFTER MEDS AND BLOOD DRAWS; Start at 13:45; Stop 01/12/17 at 14:37; Status DC Lactated Ringer's (Iv Lactated Ringers) 1,000 ml @ 100 mls/hr Q10H IV Last administered on 01/12/17 05:17; Start 01/10/17 at 13:43; Stop 01/12/17 at 13:21 ; Status DC Morphine Sulfate 1 mg PRN Q1HR PRN IV PAIN Last administered on 01/16/17 13:18 ; Start 01/10/17 at 13:45 Ondansetron HCl (Zofran) 4 mg PRN Q6HRS PRN IV NAUESA, 1ST CHOICE Last administered on 01/16/17 00:22; Start 01/10/17 at 13:45 Cellulose 2 each STK-MED ONCE TP Last administered on 01/10/17 10:23; Start 01/10/17 at 10:23; Stop 01/10/17 at 14:25; Status DC Lorazepam (Ativan) 2 mg STK-MED ONCE .ROUTE ; Start 01/10/17 at 20:59; Stop at 21:00; Status DC Rocuronium [place] 50 mg 50 mg STK-MED ONCE .ROUTE ; Start 01/10/17 at 21:30; Stop 01/10/17 at 21:31; Status DC Cefoxitin Sodium (Mefoxin 2gm Ivpb For Omni) 100 ml @ As Directed STK-MED ONCE IV ; Start 01/10/17 at 21:45; Stop 01/10/17 at 21:46; Status DC Cellulose 1 each STK-MED ONCE .ROUTE Last administered on 01/10/17 21:47; Start 01/10/17 at 21:48; Stop 01/10/17 at 21:49; Status DC Cellulose 2 each STK-MED ONCE TP Last administered on 01/10/17 21:47; Start 01/10/17 at 21:47; Stop 01/10/17 at 22:14; Status DC Sodium Chloride 3 ml 3 ml QSHIFT PRN IV AFTER MEDS AND BLOOD DRAWS; Start at 22:30 Fentanyl Citrate 30 ml @ 0 mls/hr CONT PRN IV PROTOCOL Last administered on 07:44; Start 01/10/17 at 22:30; Stop 01/16/17 at 11:23; Status DC Propofol (Diprivan) 100 ml @ 0 mls/hr CONT PRN IV PER PROTOCOL Last administered on 01/13/17 18:39; Start 01/10/17 at 22:30; Stop 01/16/17 at 11:12 ; Status DC Chlorhexidine Gluconate 15 ml 15 ml BID MM Last administered on 01/15/17 20:49 ; Start 01/11/17 at 09:00; Stop 01/16/17 at 11:22; Status DC Sodium Chloride 1,000 ml @ 1,000 mls/hr 1X ONCE IV Last administered on 02:30; Start 01/11/17 at 02:30; Stop 01/11/17 at 03:29; Status DC Levothyroxine Sodium 25 mcg/ Sodium Chloride 5 ml @ 100 mls/hr DAILY IVP Last administered on 01/19/17 09:13; Start 01/11/17 at 09:00; Stop 01/19/17 at 11:49 ; Status DC Sodium Chloride (Iv Sodium Chloride 0.9% 500ml Bag) 500 ml @ 500 mls/hr 1X ONCE IV Last administered on 01/11/17 09:45; Start 01/11/17 at 09:45; Stop at 10:44; Status DC Heparin Sodium (Porcine) 5,000 unit Q8HRS SQ ; Start 01/11/17 at 14:00; Stop 01/11 at 16:45; Status DC Info 1 each 1 each PRN DAILY PRN MC SEE COMMENTS Last administered on 13:17; Start 01/11/17 at 10:15 Norepinephrine Bitartrate 8 mg/ Sodium Chloride 258 ml @ 0 mls/hr CONT PRN IV SEE I/O RECORD Last administered on 01/11/17 12:58; Start 01/11/17 at 11:15; Stop 01/16/17 at 11:22; Status DC Lactated Ringer's 500 ml @ 500 mls/hr PRN Q2HRS PRN IV HYPOTENTION; Start 01/11 at 13:15 Sodium Chloride 500 ml @ 500 mls/hr PRN Q2HR PRN IV hypotention; Start at 13:15 Sodium Acetate/ Potassium Acetate/ Potassium Phosphate/ Magnesium Sulfate/ Calcium Gluconate/ Chromium/Copper/ Manganese/Seleni/ Zn/Total Parenteral Nutrition/Amino Acids/Dextrose/ Fat Emulsion Intravenous (Potassium Phosphate/ Calcium Gluconate/ Multitrace-5 Conc/ Tpn - Tpn Flu... 1,512 ml @ 63 mls/hr TPN CONT IV Last administered on 01/11/17 21:39; Start 01/11/17 at 22:00; Stop 01/12/17 at 21:59; Status DC Info 1 each PRN DAILY PRN MC SEE COMMENTS; Start 01/11/17 at 13:45; Status UNV Cefoxitin Sodium 4 gm 4 gm STK-MED ONCE IV ; Start 01/10/17 at 12:00; Stop at 08:16; Status DC Sodium Chloride (Iv Sodium Chloride 0.9% 1000ml Bag) 1,000 ml @ 60 mls/hr [id number] IV Last administered on 01/17/17 12:21; Start 01/12/17 at 13:15; Stop 01/19/17 at 11:48; Status DC Insulin Aspart (Novolog) 0-7 UNITS TIDWMEALS SQ Last administered on 01/12/17 17:06; Start 01/12/17 at 17:00; Stop 01/13/17 at 00:28; Status DC Dextrose 12.5 gm 12.5 gm PRN Q15MIN PRN IV SEE COMMENTS; Start 01/12/17 at 13: 30 Magnesium Sulfate/ Dextrose 50 ml @ 25 mls/hr 1X ONCE IV Last administered on 01/12/17 14:16; Start 01/12/17 at 14:00; Stop 01/12/17 at 15:59; Status DC Potassium Phosphate 10 mmol/ Sodium Chloride 103.3333 ml @ 51.667 m... 1X ONCE IV Last administered on 01/12/17 14:16; Start 01/12/17 at 14:00; Stop 07/21 at 15:59; Status DC Sodium Acetate/ Potassium Acetate/ Potassium Phosphate/ Magnesium Sulfate/ Calcium Gluconate/ Chromium/Copper/ Manganese/Seleni/ Zn/Total Parenteral Nutrition/Amino Acids/Dextrose/ Fat Emulsion Intravenous (Potassium Phosphate/ Calcium Gluconate/ Multitrace-5 Conc/ Tpn - Tpn Flu... 1,512 ml @ 63 mls/hr TPN CONT IV Last administered on 01/12/17 22:09; Start 01/12/17 at 22:00; Stop 01/13/17 at 21:59; Status DC Darbepoetin Luis (Aranesp) 60 mcg [id number] SQ Last administered on 01/12/17 22 :09; Start 01/12/17 at 21:00 Insulin Aspart 0-7 UNITS Q6HRS SQ Last administered on 01/18/17 17:30; Start 01/13/17 at 00:30 Piperacillin Sod/ Tazobactam Sod 3.375 gm/Sodium Chloride 50 ml @ 100 mls/hr Q8HRS IV Last administered on 01/13/17 12:07; Start 01/13/17 at 12:00; Stop at 12:55; Status DC Sodium Acetate 70 meq/Potassium Acetate 60 meq/ Potassium Phosphate 20 mmol/ Magnesium Sulfate 15 meq/Calcium Gluconate 10 meq/ Multivitamins 10 ml/Chromium / Copper/Manganese/ Seleni/Zn 1 ml/ Insulin Human Regular 15 unit/ Total Parenteral Nutrition/Amino Acids/Dextrose/ Fat Emulsion Intravenous 1,512 ml @ 63 mls/hr TPN CONT IV Last administered on 01/13/17 22:35; Start 01/13/17 at 22:00; Stop 01/14/17 at 21:59; Status DC Piperacillin Sod/ Tazobactam Sod/ Sodium Chloride (Zosyn/Iv Sodium Chloride 0.9 % 50ml) 50 ml @ 100 mls/hr Q6HRS IV Last administered on 01/19/17 12:16; Start 01/13/17 at 18:00 Metoprolol Tartrate (Lopressor) 5 mg Q6HRS IVP Last administered on 01/18/17 17:22; Start 01/13/17 at 18:00; Stop 01/19/17 at 11:50; Status DC Dextrose (Dextrose 50%-Water Syringe) 25 gm 1X ONCE IV ; Start 01/13/17 at 16: 45; Stop 01/13/17 at 16:46; Status DC Insulin Detemir 15 units 15 units QHS SQ Last administered on 01/18/17 21:40; Start 01/14/17 at 21:00; Stop 01/19/17 at 11:14; Status DC Sodium Acetate 70 meq/Potassium Acetate 45 meq/ Potassium Phosphate 20 mmol/ Magnesium Sulfate 15 meq/Calcium Gluconate 10 meq/ Multivitamins 10 ml/Chromium / Copper/Manganese/ Seleni/Zn 1 ml/ Total Parenteral Nutrition/Amino Acids/ Dextrose/ Fat Emulsion Intravenous 1,512 ml @ 63 mls/hr TPN CONT IV Last administered on 01/14/17 21:42; Start 01/14/17 at 22:00; Stop 01/15/17 at 21:59 ; Status DC Sodium Acetate 70 meq/Potassium Acetate 45 meq/ Potassium Phosphate 20 mmol/ Magnesium Sulfate 15 meq/Calcium Gluconate 10 meq/ Multivitamins 10 ml/Chromium / Copper/Manganese/ Seleni/Zn 1 ml/ Total Parenteral Nutrition/Amino Acids/ Dextrose/ Fat Emulsion Intravenous 1,512 ml @ 63 mls/hr TPN CONT IV Last administered on 01/15/17 22:22; Start 01/15/17 at 22:00; Stop 01/16/17 at 21:59 ; Status DC Sodium Acetate 70 meq/Potassium Acetate 45 meq/ Potassium Phosphate 20 mmol/ Magnesium Sulfate 15 meq/Calcium Gluconate 10 meq/ Multivitamins 10 ml/Chromium / Copper/Manganese/ Seleni/Zn 1 ml/ Total Parenteral Nutrition/Amino Acids/ Dextrose/ Fat Emulsion Intravenous 1,512 ml @ 63 mls/hr TPN CONT IV Last administered on 01/16/17 22:28; Start 01/16/17 at 22:00; Stop 01/17/17 at 21:59 ; Status DC Sodium Acetate/ Potassium Acetate/ Potassium Phosphate/ Magnesium Sulfate/ Calcium Gluconate/ Multivitamins/ Chromium/Copper/ Manganese/Seleni/ Zn/Total Parenteral Nutrition/Amino Acids/Dextrose/ Fat Emulsion Intravenous (Potassium Phosphate/Calcium Gluconate/ Infuvite Wild... 1,512 ml @ 63 mls/hr TPN CONT IV Last administered on 01/17/17 21:51; Start 01/17/17 at 22:00; Stop 01/18/17 at 21:59; Status DC Bumetanide (Bumex) 1 mg 1X ONCE IV Last administered on 01/17/17 19:45; Start 01/17/17 at 20:00; Stop 01/17/17 at 20:01; Status DC Bumetanide 1 mg 1 mg 1X ONCE IV Last administered on 01/18/17 04:27; Start at 04:30; Stop 01/18/17 at 04:31; Status DC Sodium Acetate/ Potassium Acetate/ Potassium Phosphate/ Magnesium Sulfate/ Calcium Gluconate/ Multivitamins/ Chromium/Copper/ Manganese/Seleni/ Zn/ Potassium Chloride/Total Parenteral Nutrition/Amino Acids/Dextrose/ Fat Emulsion Intravenous (Potassium Phosphate/Calcium Glucona... 1,512 ml @ 63 mls/ hr TPN CONT IV Last administered on 01/18/17 21:30; Start 01/18/17 at 22:00; Stop 01/19/17 at 21:59 Insulin Detemir (Levemir) 10 units QHS SQ ; Start 01/19/17 at 21:00 Pantoprazole Sodium (Protonix) 40 mg DAILYAC PO ; Start 01/20/17 at 07:30 Levothyroxine Sodium (Synthroid) 50 mcg DAILY07 PO ; Start 01/20/17 at 07:00 Metoprolol Tartrate 25 mg 25 mg BID PO ; Start 01/19/17 at 21:00 Sodium Chloride 90 meq/Potassium Chloride 50 meq/ Potassium Acetate 45 meq/ Potassium Phosphate 20 mmol/ Magnesium Sulfate 15 meq/Calcium Gluconate 10 meq/ Multivitamins 10 ml/Chromium/ Copper/Manganese/ Seleni/Zn 1 ml/ Total Parenteral Nutrition/Amino Acids/Dextrose/ Fat Emulsion Intravenous 1,512 ml @ 63 mls/hr TPN CONT IV ; Start 01/19/17 at 22:00; Stop 01/20/17 at 21:59 Potassium Chloride (KCl Premix 20meq) 50 ml @ 50 mls/hr Q1H IV ; Start 01/19/17 at 14:00; Stop 01/19/17 at 15:59 Active Scripts Active Reported Pred Forte (Prednisolone Acetate) 1 Ml Drops.susp 1 Ml OU BID PRN Visine Allergy Relief Drop (Tetrahydrozoline Hcl/Zn Sulf) 15 Ml Drops 1 Drop OU PRN Thera Tears (Carboxymethylcellulose Sodium) 15 Ml Drops 1 Drop OU PRN Jaime-128 (Sodium Chloride) 15 Ml Drops 1 Drop OU PRN Tramadol Hcl 100 Mg Tbmp.24hr 100 Mg PO Q6H PRN Tramadol Hcl 50 Mg Tablet 50 Mg PO Q6H PRN Zyrtec (Cetirizine Hcl) 10 Mg Tablet 10 Mg PO DAILY Nasacort (Triamcinolone Acetonide) 10.8 Ml [place] 2 [place] NS DAILY Proair Hfa Inhaler (Albuterol Sulfate) 8.5 Gm Hfa.aer.ad 2 Puff INH QID Mucinex (Guaifenesin) 600 Mg Tablet.er 600 Mg PO Q8HRS PRN Levothyroxine Sodium 50 Mcg Tablet 50 Mcg PO DAILYAC Dyazide 37.5-25 Capsule (Triamterene/Hydrochlorothiazid) 1 Each Capsule 1 Cap PO DAILY Bystolic (Nebivolol) 5 Mg Tablet 5 Mg PO DAILY Vitals/I & O Vital Sign - Last 24 Hours 01/18/17 01/18/17 01/18/17 01/18/17 15:00 15:58 16:46 17:22 Temp 98.2 98.2 Pulse 98 100 Resp 24 B/P 109/67 129/64 Pulse Ox 96 O2 Delivery Nasal Cannula Nasal Cannula Nasal Cannula O2 Flow Rate 4.0 6.0 4.0 01/18/17 01/18/17 01/18/17 01/18/17 18:01 18:44 19:00 19:00 Temp 98.0 98.0 Pulse 86 Resp 20 B/P 110/58 Pulse Ox 99 97 O2 Delivery Nasal Cannula Nasal Cannula Nasal Cannula Nasal Cannula O2 Flow Rate 4.0 4.0 4.0 6.0 01/18/17 01/18/17 01/18/17 01/18/17 19:56 20:00 21:32 23:21 Temp 98.2 98.2 Pulse 93 Resp 18 30 20 B/P 115/59 Pulse Ox 95 O2 Delivery Nasal Cannula Nasal Cannula Nasal Cannula Nasal Cannula O2 Flow Rate 3.0 3.0 3.0 3.0 01/19/17 01/19/17 01/19/17 01/19/17 02:44 03:00 06:05 06:09 Temp 98.5 98.5 Pulse 93 101 Resp 30 20 B/P 111/45 117/54 Pulse Ox 91 O2 Delivery Nasal Cannula Nasal Cannula Nasal Cannula O2 Flow Rate 2.0 3.0 3.0 01/19/17 01/19/17 01/19/17 07:20 10:40 12:13 Temp 98.8 98.8 Pulse 98 Resp 18 B/P 122/55 Pulse Ox 97 96 O2 Delivery Nasal Cannula Nasal Cannula Nasal Cannula O2 Flow Rate 3.0 3.0 3.0 Intake and Output 01/18/17 01/18/17 01/19/17 15:00 23:00 07:00 Intake Total 200 ml 745 ml Output Total 1800 ml 100 ml Balance 200 ml -1055 ml -100 ml LAURA VILLARREAL MD Jan 19, 2017 13:58
[2017-01-19] MEDS: POTASSIUM CHLORIDE 20MEQ 50 ML IV SCH ×2 (13:59→15:17)
--- NOTE | 2017-01-19 14:59 | PATHOLOGY ---
PATHOLOGY REPORT * * * * * * * * FINAL DIAGNOSIS: A. Distal ileum, cecum, ascending colon, transverse colon, and proximal descending colon with attached mesocolon and omentum, distal pancreas, spleen and perisplenic fat, left adrenal gland, and segment of stomach, left upper quadrant en- block resection: - ADENOSQUAMOUS CARCINOMA OF PANCREAS, INVASIVE, MODERATELY DIFFERENTIATED, FORMING A TUMOR MASS OF THE DISTAL PANCREAS MEASURING UP TO 6.3 CM IN GREATEST DIMENSION, WITH FOCAL TUMOR INVASION OF SPLENIC FLEXURE OF COLON PRODUCING MARKED LUMINAL STENOSIS, FOCAL TUMOR INVASION OF SPLEEN, AND FOCAL TUMOR INVASION OF STOMACH. SEE SYNOPTIC REPORT AND COMMENT. - FEW TUMOR IMPLANTS OF MESOCOLON IN REGION OF SPLENIC FLEXURE AND PERISPLENIC SOFT TISSUE. - FOCAL MICROSCOPIC TUMOR INVOLVEMENT AND PERINEURAL TUMOR INVASION OF PROXIMAL PANCREATIC MARGIN OF RESECTION. - Twenty-eight mesocolic and two peripancreatic lymph nodes negative for tumor (0/30). - Proximal (distal ileum) and distal (proximal descending colon) margins of resection negative for tumor. - Omentum negative for tumor. - Chronic perisplenitis. - Chronic gastritis. - Left adrenal gland showing no diagnostic abnormalities. B. Liver tissue, left lobe liver biopsy: - METASTATIC ADENOSQUAMOUS CARCINOMA. C. Segment of small bowel and attached mesentery, segmental resection: - Ischemic enteritis. - Five technical service representative mesenteric lymph nodes showing focal recent hemorrhage-negative for tumor. D. Liver and fibroadipose tissue, middle lobe liver biopsy: - METASTATIC ADENOSQUAMOUS CARCINOMA. E. Kidney and attached perinephric fat and segment of ureter, left nephrectomy: - Depressed focus of mid anterior renal cortex with hemorrhage and coagulative changes-negative for tumor. CLINICAL Clinical History: Other: Mass of pancreatic tail. SPECIMEN Specimen: Tail of pancreas Stomach Spleen Other: Distal ileum, ascending colon,transverse colon, and proximal descending colon. Procedure: Other: Distal pancreatectomy and en bloc resection of left upper quadrant. TUMOR Primary Tumor Site: Pancreatic tail Histologic Type: Adenosquamous carcinoma Histologic Grade (ductal carcinoma only): G2: Moderately differentiated Tumor Size: Greatest dimension (cm): 6.3 Tumor Extent Sites(s) of Direct Extent of Tumor: Pancreatic tail Other: Splenic flexure of colon, stomach, and spleen. Microscopic Tumor Extension: Tumor invades peripancreatic soft tissue -Tumor invades retroperitoneal soft tissue Tumor invades other adjacent organs or structures: Splenic flexure of colon, stomach, and spleen.. Accessory Tumor Findings Lymph-Vascular Invasion: Not identified Perineural Invasion: Present MARGINS Segmental Resection (including distal pancreatectomy) Specimens -Proximal Pancreatic Parenchymal Margin: --Involved by invasive carcinoma -Other Margin(s): --Other margins assessed ---Specify Margin(s): ----Specify margin: Distal ileum and descending colon. ---Margin Status: ----Uninvolved by invasive carcinoma LYMPH NODES Regional Lymph Nodes: -Number of Lymph Nodes Examined: --Specify number: 30 -Number of Lymph Nodes Involved: --Specify number: 0 STAGE (PTNM) Primary Tumor (pT): pT3: Tumor extends beyond the pancreas but without involvement of the celiac axis or the superior mesenteric artery Regional Lymph Nodes (pN): pN0: No regional lymph node metastasis Distant Metastasis (pM): pM1: Distant metastasis ADDITIONAL FINDINGS Additional Pathologic Findings: None identified COMMENT: Sections of the distal pancreatic mass reveal an invasive malignant epithelial neoplasm which appears to have both squamous and glandular components. Tumor cells in the squamoid areas have a polygonal shape with ample amounts of pale eosinophilic cytoplasm. The tumor cells possess enlarged, rounded to ovoid hyperchromatic nuclei containing nucleoli. The glandular component is composed of irregular malignant glands showing evidence of mucin production. A panel of immunoperoxidase stains is obtained and yields the following results: (Block A3) Cytokeratin 7: glandular tumor cells positive Cytokeratin 20: tumor cells negative CK5/6: squamoid tumor cells positive P63: squamoid tumor cells positive P40: squamoid tumor cells positive Polyclonal CEA: predominantly glandular tumor cells positive CDX-2: tumor cells negative The morphologic and immunophenotypic findings are supportive of the diagnosis of adenosquamous carcinoma of pancreas. The tumor focally invades the muscular wall and submucosa of the splenic flexure of colon and produces marked luminal stenosis. There is focal tumor invasion of the splenic parenchyma. In addition, there is focal tumor invasion of the muscular wall of the stomach. There are a few tumor implants of the mesocolon of the splenic flexure and perisplenic soft tissue. There are no lymph node metastases identified. There is focal microscopic tumor involvement and perineural tumor involvement of the proximal pancreatic margin of resection. (JPM:mgphil; d/t: 01/16/17) REPORT ELECTRONICALLY SIGNED BY: Kale Decker M.D. DATE/TIME: 01/19/2017 14:58 * * * * * * * * GROSS PATHOLOGY: A. The specimen is received in formalin and is designated "en block resection of left upper quadrant". The specimen includes the following: segment of distal ileum, cecum, ascending colon, transverse colon, and proximal descending colon with attached mesocolon and omentum. Adherent to the region of the splenic flexure is the distal pancreas, spleen and perisplenic fat, and small segment of apparent stomach. The distal ileum measures 30 cm in length and is slightly tortuous with enteric-enteric adhesions. The cecum, ascending colon, transverse colon and proximal descending colon measure approximately 87 cm in length. Located approximately 14 cm from the distal margin, there is a segment of marked narrowing of the colon in the region of the splenic flexure. The mucosa in the area of narrowing is intact. Proximal to the area of narrowing, the colon is markedly dilated up to 14 cm in circumference. The ileal mucosa is yellowish brown and somewhat erythematous. The colonic mucosa is yellowish ruth to yellowish brown with loss of the folds in the area of dilatation. There are no polyps or tumor masses. The attached mesocolon measures up to 9 cm in depth in the region of the transverse colon. The attached omental apron measures up to 44.0 x 14.0 cm. It is composed of finely lobulated and focally hemorrhagic yellow fatty tissue. There are no obvious tumor masses within the omentum. The distal pancreas is yellow irwin and firm and indurated and measures up to 7.2 cm in length. There is a stapled segment of ruth irwin tissue densely adherent to the distal pancreas, which appears to be a segment of stomach which measures up to 5.8 cm in length and 3.0 cm in width. This segment is open along the staple line. The gastric mucosa is pink to ruth. There is preservation of the mucosal folds. Sectioning of the distal pancreas reveals an ill-defined irwin firm tumor mass measuring up to approximately 6.3 cm in greatest dimension. The tumor grossly focally invades the stomach, the splenic flexure of the colon in the area of segmental narrowing of the colon, and the spleen. The spleen measures up to 8.5 cm in length and 4.5 cm in width. The capsular surface is ruth to irwin white, thickened, and granular. The capsule is partially stripped from the spleen. There is a irwin firm nodule of the perisplenic soft tissue measuring up to 1.0 cm. A yellow gold adrenal gland is present in the perisplenic fat measuring up to 5 cm in length and 1.5 cm in width. There appear to be a couple of irwin tumor implants within the mesocolon near the area of narrowing of the splenic flexure measuring up to 0.8 cm. Sections are submitted as follows: A1: proximal pancreatic margin en face A2-A3: sections of distal pancreatic tumor A4: sections of tumor invading stomach A5: section of tumor invading spleen A6: section of tumor invading splenic flexure of colon A7: possible tumor implants of mesocolon near splenic flexure A8: possible tumor implant of perisplenic tissue A9: proximal (distal ileum) margin of resection A10: distal (descending colon) margin of resection A11: distal ileum A12: sections of ascending colon and transverse colon proximal to splenic flexure A13: colonic mucosa distal to narrowed splenic flexure A14-A15: additional sections of spleen A16: technical service representative sections of adrenal gland A17: technical service representative section of omentum A18: several possible small lymph nodes from area of splenic flexure A19-A23: each contains multiple small lymph nodes B. The specimen is received in formalin, designated "left lobe liver" and consists of a triangular segment of ruth irwin liver tissue, measuring 3.0 x 1.7 x 0.8cm in maximum dimensions. One broad surface shows a ruth irwin, smooth and glistening serosal surface. Along this surface there is a well defined, ruth-white, firm tumor nodule, measuring 0.9 cm. The opposite surface is roughened, shaggy, focally torn and irregular. This area is inked with black ink. The specimen is serially sectioned to reveal ruth irwin liver parenchyma with multiple focal ruth white, well defined nodules. The specimen is submitted entirely in cassette B1. C. The specimen is received in formalin and is designated "small bowel". This consists of an undulating loop of small bowel with attached mesentery. The segment measures approximately 140 cm in length, and ranges from 2.7 up to 4.2 cm in diameter. The accompanying mesentery measures up to 9 cm in depth. The segment is stapled closed at both ends. The serosal surface throughout the segment is ruth brown and somewhat dusky in appearance. The segment is opened along the antimesenteric aspect. The small bowel contents are yellow and liquid. There is preservation of the mucosal folds of the bowel segment with no polyps or ulcerated masses identified. The small bowel mucosa ranges from irwin to reddish brown and erythematous. There are a few small yellowish areas of the mucosa noted. Sections are submitted as follows: C1: margins of resection C2-C5: technical service representative sections of small bowel from one end to the opposite end C6: technical service representative mesenteric lymph nodes D. The specimen is received in formalin, designated "middle lobe of liver" and consists of a somewhat elongate, irregularly shaped segment of ruth irwin liver tissue and yellow irwin, lobulated, fatty tissue. The segment measures 4.5 x 2.0 x 0.8cm in maximum dimensions. One end of the segment shows ruth irwin liver parenchyma with multiple small, focal areas of ruth white firm nodularity. The opposite end shows a well circumscribed yellow, irwin fatty surface. The specimen is sectioned and submitted entirely in cassettes D1 and D2. E The specimen is received in formalin and designated "left kidney". The specimen consists of a kidney with attached perinephric fat. The specimen weighs 429 grams and measures up 17 cm in length, 9.5 cm in width and 5.0 cm in thickness. The perinephric fat is partially torn away from the anterior kidney revealing the underlying renal cortical surface. The kidney measures approximately 9 cm in length, 5 cm in width and 4.0 cm in thickness. The capsular surface is pinkish ruth and glistening. Exiting from the inferior aspect of the renal hilum is a segment of ureter. The ureter measures approximately 5.5 cm in length and is 0.4 cm in width. The vessels exiting the renal hilum have attached sutures. The exposed cortical surface of the kidney is irwin. There is an ovoid depressed hemorrhagic roughened area of the mid anterior renal cortex, measuring up to approximately 2.2 cm in length and 1.5 in width. The kidney is bivalved. The cut surface of the kidney is irwin with good demarcation of the corticomedullary junction. The cortex measures up to 0.6 to 0.7 cm in thickness. There is focal hemorrhage of the pelvocalyceal fat in the superior pole. There are no tumor masses. Sections are submitted as follows: E1: sections of ureter and renal vessels E2-E3: technical service representative sections of the depressed hemorrhagic area of anterior renal cortex E4-E5: technical service representative sections of kidney E6: sections from renal pelvis. (JPM:csd; d/t: 01/13/2017) INITIAL CPT CODE(S): A; 88648, 03020, 39477, 08869, 32660, 29041, 23902, 07743 B; 76624 C; 74016 D; 96670 E; 88216 Professional services performed [place] [address] Technical services performed by [facility] at [address] [place] [address]. SPECIMEN(S) RECEIVED: A.En bloc resection left upper quadrant B.Left lobe liver C.Small bowel D.Middle lobe liver E.Left kidney CLINICAL HISTORY: Abdominal mass PROCEDURE: Splenectomy, distal pancreatectomy, partial gastrectomy, partial colectomy, liver biopsy PATIENT: YVONNE AGUILAR /AGE: 1209/22/1935 (Age: 81) PATIENT #: [id number] ALT CASE #: SPECIMEN COLLECTION DATE: 01/10/2017 SPECIMEN RECEIVED DATE: 01/12/2017 [facility] - [id number] [place] [address] - PHONE: [phone] * * * END OF REPORT * * *
[2017-01-19 15:01] VITALS: BP 115/61
[2017-01-19 19:00] VITALS: BP 128/59
[2017-01-19] MEDS: METOPROLOL TART IMMED RELEASE 25 MG TABLET. PO SCH (20:58)
[2017-01-19] MEDS: DARBEPOETIN ALFA 60 MCG/0.3 ML DISP.SYRIN. SQ SCH (20:58)
[2017-01-19] MEDS ORDERED: INSULIN DETEMIR 300 UNITS/3 ML INSULN.PEN. SQ SCH (21:00)
[2017-01-19] MEDS ORDERED: TOTAL PARENTERAL NUTRITION IV SCH ×11 (22:00)
[2017-01-19] MEDS ORDERED: AMINO ACIDS IV SCH ×11 (22:00)
[2017-01-19] MEDS ORDERED: DEXTROSE 70% IV SCH ×11 (22:00)
[2017-01-19] MEDS ORDERED: [UNRECOGNIZED DRUG - OTHER] IV SCH ×11 (22:00)
[2017-01-19 23:59] VITALS: BP 118/77
[2017-01-20 03:00] VITALS: BP 120/52
[2017-01-20] MEDS: INSULIN ASPART 300 UNITS/3 ML INSULN.PEN SQ SCH ×4 (06:00→18:00)
[2017-01-20] MEDS: PIPERACILLIN/TAZOBACTAM 3.375 GM in IV NORMAL SALINE 50ML 50 ML IV SCH ×2 (06:11→12:29)
[2017-01-20] MEDS: OXYCODONE IR 5 MG TABLET. PO PRN ×2 (06:16→09:13)
[2017-01-20 06:44] LABS: BASO # 0.1 x10^3/uL (0.0-0.2); BASO % 0 % (0-3); EOS % 1 % (0-3); HEMATOCRIT 28.4 % (36.0-47.0); LYMPH # 1.2 x10^3/uL (1.0-4.8); LYMPH % 7 % (24-48); MEAN CORPUSCULAR HEMOGLOBIN 28 pg (25-35); MEAN CORPUSCULAR HGB CONC 32 g/dL (31-37); MEAN CORPUSCULAR VOLUME 88 fL (79-100); MONO % 4 % (0-9); NEUT % 88 % (31-73); PLATELET COUNT 322 x10^3/uL (140-400); RED BLOOD COUNT 3.23 x10^6/uL (3.50-5.40); RED CELL DISTRIBUTION WIDTH 15.4 % (11.5-14.5); WHITE BLOOD COUNT 18.2 x10^3/uL (4.0-11.0)
[2017-01-20 07:00] VITALS: BP 136/57
[2017-01-20] MEDS ORDERED: LEVOTHYROXINE 50 MCG TABLET PO SCH (07:00)
[2017-01-20 07:16] LABS: ALBUMIN/GLOBULIN RATIO 0.3 (1.0-1.7); CALCIUM 7.3 mg/dL (8.5-10.1); CREATININE 1.1 mg/dL (0.6-1.0); GFR 47.9; MAGNESIUM 2.3 mg/dL (1.8-2.4); PHOSPHORUS 4.2 mg/dL (2.6-4.7); POTASSIUM 4.8 mmol/L (3.5-5.1); TOTAL BILIRUBIN 1.3 mg/dL (0.2-1.0); TOTAL PROTEIN 4.1 g/dL (6.4-8.2)
[2017-01-20] MEDS: ALBUTEROL SULFATE 2.5 MG/3 ML NEBU. NEB SCH ×3 (07:22→15:09)
[2017-01-20] MEDS ORDERED: PANTOPRAZOLE 40 MG TABLET.DR. PO SCH (07:30)
--- NOTE | 2017-01-20 08:14 | RAD ---
Portable chest, 01/20/2017: History: Pneumonia, congestive heart failure Comparison is made to a study from 01/18/2017. A right jugular central venous catheter extends into the mid right atrium. The heart is enlarged. There is a moderate ongoing left chest opacity compatible with pleural fluid and infiltrate. This is unchanged. Mild right pulmonary infiltrates have improved slightly with better definition of the underlying pulmonary vessels. No new abnormality is seen. IMPRESSION: 1. Unchanged moderate left chest opacity compatible with pleural fluid and underlying infiltrate. This may be due to congestive heart failure, infection or sympathetic pleural fluid related to left subdiaphragmatic pathology. 2. Improving mild right pulmonary infiltrates.
[2017-01-20] MEDS: DOCUSATE SODIUM 100 MG CAPSULE. PO SCH (09:10)
[2017-01-20] MEDS: CETIRIZINE HCL 10 MG TABLET. PO SCH (09:10)
[2017-01-20] MEDS: METOPROLOL TART IMMED RELEASE 25 MG TABLET. PO SCH (09:10)
[2017-01-20] MEDS: FLUTICASONE 50MCG/NASAL SPRAY 16GM BOTTLE. NS SCH (09:11)
[2017-01-20 11:00] VITALS: BP 132/59
--- NOTE | 2017-01-20 11:36 | PDOC ---
SURGICAL PROGRESS NOTE Subjective doing ok Vital Signs Vital Signs Date Time Temp Pulse Resp B/P Pulse Ox O2 Delivery O2 Flow Rate FiO2 01/20/17 11:00 97.6 101 24 132/59 94 Nasal Cannula 3.0 97.6 I&O Intake and Output 01/20/17 07:00 Intake Total 3021 ml Output Total 2375 ml Balance 646 ml Intake Oral 560 ml IV Total 1346 ml Other 1115 ml Output Urine Total 425 ml Stool Total 1400 ml Emesis 550 ml General: Alert, Cooperative, No acute distress Abdomen: Soft, Other (ostomy with stool, incision c/d/i) Labs Laboratory Tests Test 01/18/17 12:02 01/18/17 17:15 01/18/17 23:58 01/19/17 06:19 Glucose (Fingerstick) 165mg/dL (70-99) 171mg/dL (70-99) 149mg/dL (70-99) 61mg/dL (70-99) Test 01/19/17 06:35 01/19/17 08:27 01/19/17 09:15 01/19/17 12:04 White Blood Count 24.7x10^3/uL (4.0-11.0) Red Blood Count 3.38x10^6/uL (3.50-5.40) Hemoglobin 9.5g/dL (12.0-15.5) Hematocrit 29.1% (36.0-47.0) Mean Corpuscular Volume 86fL (79-100) Mean Corpuscular Hemoglobin 28pg (25-35) Mean Corpuscular Hemoglobin Concent 33g/dL (31-37) Red Cell Distribution Width 15.0% (11.5-14.5) Platelet Count 274x10^3/uL (140-400) Neutrophils (%) (Auto) 85% (31-73) Lymphocytes (%) (Auto) 8% (24-48) Monocytes (%) (Auto) 6% (0-9) Eosinophils (%) (Auto) 1% (0-3) Basophils (%) (Auto) 0% (0-3) Neutrophils # (Auto) 21.0x10^3uL (1.8-7.7) Lymphocytes # (Auto) 2.0x10^3/uL (1.0-4.8) Monocytes # (Auto) 1.4x10^3/uL (0.0-1.1) Eosinophils # (Auto) 0.2x10^3/uL (0.0-0.7) Basophils # (Auto) 0.1x10^3/uL (0.0-0.2) Sodium Level 139mmol/L (136-145) Potassium Level 3.1mmol/L (3.5-5.1) Chloride Level 100mmol/L (98-107) Carbon Dioxide Level 33mmol/L (21-32) Anion Gap 6 (6-14) Blood Urea Nitrogen 26mg/dL (7-20) Creatinine 1.1mg/dL (0.6-1.0) Estimated GFR (Cockcroft-Gault) 47.9 Glucose Level 56mg/dL (70-99) Calcium Level 7.8mg/dL (8.5-10.1) Glucose (Fingerstick) 61mg/dL (70-99) 66mg/dL (70-99) Urine Collection Type Unknown Urine Color Yellow Urine Clarity Clear Urine pH 6.0 Urine Specific [place] 1.025 Urine Protein 30mg/dL (NEG-TRACE) Urine Glucose (UA) Negativemg/dL (NEG) Urine Ketones (Stick) Negativemg/dL (NEG) Urine Blood Trace (NEG) Urine Nitrite Negative (NEG) Urine Bilirubin Negative (NEG) Urine Urobilinogen Dipstick 0.2mg/dL (0.2 mg/dL) Urine Leukocyte Esterase Negative (NEG) Urine RBC 0/HPF (0-2) Urine WBC Occ/HPF (0-4) Urine Squamous Epithelial Cells Few/LPF Urine Bacteria Few/HPF (0-FEW) Urine Hyaline Casts Few/HPF Urine Granular Casts Occasional/HPF Urine Mucus Slight/LPF Test 01/19/17 18:22 01/19/17 20:57 01/20/17 00:07 01/20/17 06:09 Glucose (Fingerstick) 104mg/dL (70-99) 144mg/dL (70-99) 139mg/dL (70-99) White Blood Count 18.2x10^3/uL (4.0-11.0) Red Blood Count 3.23x10^6/uL (3.50-5.40) Hemoglobin 9.0g/dL (12.0-15.5) Hematocrit 28.4% (36.0-47.0) Mean Corpuscular Volume 88fL (79-100) Mean Corpuscular Hemoglobin 28pg (25-35) Mean Corpuscular Hemoglobin Concent 32g/dL (31-37) Red Cell Distribution Width 15.4% (11.5-14.5) Platelet Count 322x10^3/uL (140-400) Neutrophils (%) (Auto) 88% (31-73) Lymphocytes (%) (Auto) 7% (24-48) Monocytes (%) (Auto) 4% (0-9) Eosinophils (%) (Auto) 1% (0-3) Basophils (%) (Auto) 0% (0-3) Neutrophils # (Auto) 15.9x10^3uL (1.8-7.7) Lymphocytes # (Auto) 1.2x10^3/uL (1.0-4.8) Monocytes # (Auto) 0.8x10^3/uL (0.0-1.1) Eosinophils # (Auto) 0.3x10^3/uL (0.0-0.7) Basophils # (Auto) 0.1x10^3/uL (0.0-0.2) Sodium Level 140mmol/L (136-145) Potassium Level 4.8mmol/L (3.5-5.1) Chloride Level 102mmol/L (98-107) Carbon Dioxide Level 31mmol/L (21-32) Anion Gap 7 (6-14) Blood Urea Nitrogen 30mg/dL (7-20) Creatinine 1.1mg/dL (0.6-1.0) Estimated GFR (Cockcroft-Gault) 47.9 BUN/Creatinine Ratio 27 (6-20) Glucose Level 131mg/dL (70-99) Calcium Level 7.3mg/dL (8.5-10.1) Phosphorus Level 4.2mg/dL (2.6-4.7) Magnesium Level 2.3mg/dL (1.8-2.4) Total Bilirubin 1.3mg/dL (0.2-1.0) Aspartate Amino Transf (AST/SGOT) 34U/L (15-37) Alanine Aminotransferase (ALT/SGPT) 94U/L (14-59) Alkaline Phosphatase 115U/L (46-116) Total Protein 4.1g/dL (6.4-8.2) Albumin 1.0g/dL (3.4-5.0) Albumin/Globulin Ratio 0.3 (1.0-1.7) Triglycerides Level 196mg/dL (0-150) Test 01/20/17 06:33 Glucose (Fingerstick) 141mg/dL (70-99) Laboratory Tests Test 01/19/17 12:04 01/19/17 18:22 01/19/17 20:57 01/20/17 00:07 Glucose (Fingerstick) 66mg/dL (70-99) 104mg/dL (70-99) 144mg/dL (70-99) 139mg/dL (70-99) Test 01/20/17 06:09 01/20/17 06:33 White Blood Count 18.2x10^3/uL (4.0-11.0) Red Blood Count 3.23x10^6/uL (3.50-5.40) Hemoglobin 9.0g/dL (12.0-15.5) Hematocrit 28.4% (36.0-47.0) Mean Corpuscular Volume 88fL (79-100) Mean Corpuscular Hemoglobin 28pg (25-35) Mean Corpuscular Hemoglobin Concent 32g/dL (31-37) Red Cell Distribution Width 15.4% (11.5-14.5) Platelet Count 322x10^3/uL (140-400) Neutrophils (%) (Auto) 88% (31-73) Lymphocytes (%) (Auto) 7% (24-48) Monocytes (%) (Auto) 4% (0-9) Eosinophils (%) (Auto) 1% (0-3) Basophils (%) (Auto) 0% (0-3) Neutrophils # (Auto) 15.9x10^3uL (1.8-7.7) Lymphocytes # (Auto) 1.2x10^3/uL (1.0-4.8) Monocytes # (Auto) 0.8x10^3/uL (0.0-1.1) Eosinophils # (Auto) 0.3x10^3/uL (0.0-0.7) Basophils # (Auto) 0.1x10^3/uL (0.0-0.2) Sodium Level 140mmol/L (136-145) Potassium Level 4.8mmol/L (3.5-5.1) Chloride Level 102mmol/L (98-107) Carbon Dioxide Level 31mmol/L (21-32) Anion Gap 7 (6-14) Blood Urea Nitrogen 30mg/dL (7-20) Creatinine 1.1mg/dL (0.6-1.0) Estimated GFR (Cockcroft-Gault) 47.9 BUN/Creatinine Ratio 27 (6-20) Glucose Level 131mg/dL (70-99) Calcium Level 7.3mg/dL (8.5-10.1) Phosphorus Level 4.2mg/dL (2.6-4.7) Magnesium Level 2.3mg/dL (1.8-2.4) Total Bilirubin 1.3mg/dL (0.2-1.0) Aspartate Amino Transf (AST/SGOT) 34U/L (15-37) Alanine Aminotransferase (ALT/SGPT) 94U/L (14-59) Alkaline Phosphatase 115U/L (46-116) Total Protein 4.1g/dL (6.4-8.2) Albumin 1.0g/dL (3.4-5.0) Albumin/Globulin Ratio 0.3 (1.0-1.7) Triglycerides Level 196mg/dL (0-150) Glucose (Fingerstick) 141mg/dL (70-99) Problem List Problems Medical Problems: (1) Pancreatic mass Status: Acute Assessment/Plan supportive care plans to tx to select Problems: PAOLO BORREGO APRN Jan 20, 2017 11:36
--- NOTE | 2017-01-20 11:40 | PDOC ---
PROGRESS NOTES Subjective Subjective c/c - f/u of Pancreatic cancer, adenosquamous type, T3N0M1, grade 2, stage 4 with liver mets ROS - no CP Objective Objective Vital Signs Date Time Temp Pulse Resp B/P Pulse Ox O2 Delivery O2 Flow Rate FiO2 01/20/17 11:00 97.6 101 24 132/59 94 Nasal Cannula 3.0 97.6 Intake and Output 01/20/17 07:00 Intake Total 3021 ml Output Total 2375 ml Balance 646 ml Intake Oral 560 ml IV Total 1346 ml Other 1115 ml Output Urine Total 425 ml Stool Total 1400 ml Emesis 550 ml Physical Exam Heart: Normal S1, Normal S2 General: Alert, Oriented X3 Lungs: Clear to auscultation Neuro: Normal speech Assessment Assessment Problems Medical Problems: (1) Pancreatic mass Status: Acute IMPRESSION AND PLAN: 1. Pancreatic cancer, adenosquamous type, T3N0M1, grade 2, stage 4 with liver mets -involving the tail of the pancreas noted on the CAT scan of the abdomen and pelvis done on 01/08/2017 at [facility]. The mass is noted to be invading the spleen, stomach and splenic flexure of the colon with associated colonic obstruction. There was also evidence of an 18 mm lesion in the left lobe of the liver concerning for metastatic focus. I also discussed in detail with Dr. Erik Jenkins and in view of colon obstruction caused by the mass, I agreed to proceed with surgery which was done 01/10/2017. All gross disease resected. Exploratory laparotomy, extensive lysis of adhesions, partial colectomy, extended small-bowel resection, left nephrectomy, splenectomy, distal pancreatectomy, partial gastrectomy, temporary closure, and liver biopsy x 2. I d/w Dr Decker. 2. CT scan of the chest 01/09/17 : 3 mm nonspecific left upper lobe pulmonary nodule. Attention on follow-up imaging. Bone scan 01/09/17 is neg. CA 19-9 was [id number] on 01/09/17. level. 3. Liver metastasis per CT abdomen. I discussed with Dr. Erik Jenkins. s/p resection of 2 lesions. 4. Anemia: monitor cbc. Hb 9.0. Comment Review of Relevant I have reviewed the following items [place] (where applicable) has been applied. Labs Laboratory Tests Test 01/18/17 12:02 01/18/17 17:15 01/18/17 23:58 01/19/17 06:19 Glucose (Fingerstick) 165mg/dL (70-99) 171mg/dL (70-99) 149mg/dL (70-99) 61mg/dL (70-99) Test 01/19/17 06:35 01/19/17 08:27 01/19/17 09:15 01/19/17 12:04 White Blood Count 24.7x10^3/uL (4.0-11.0) Red Blood Count 3.38x10^6/uL (3.50-5.40) Hemoglobin 9.5g/dL (12.0-15.5) Hematocrit 29.1% (36.0-47.0) Mean Corpuscular Volume 86fL (79-100) Mean Corpuscular Hemoglobin 28pg (25-35) Mean Corpuscular Hemoglobin Concent 33g/dL (31-37) Red Cell Distribution Width 15.0% (11.5-14.5) Platelet Count 274x10^3/uL (140-400) Neutrophils (%) (Auto) 85% (31-73) Lymphocytes (%) (Auto) 8% (24-48) Monocytes (%) (Auto) 6% (0-9) Eosinophils (%) (Auto) 1% (0-3) Basophils (%) (Auto) 0% (0-3) Neutrophils # (Auto) 21.0x10^3uL (1.8-7.7) Lymphocytes # (Auto) 2.0x10^3/uL (1.0-4.8) Monocytes # (Auto) 1.4x10^3/uL (0.0-1.1) Eosinophils # (Auto) 0.2x10^3/uL (0.0-0.7) Basophils # (Auto) 0.1x10^3/uL (0.0-0.2) Sodium Level 139mmol/L (136-145) Potassium Level 3.1mmol/L (3.5-5.1) Chloride Level 100mmol/L (98-107) Carbon Dioxide Level 33mmol/L (21-32) Anion Gap 6 (6-14) Blood Urea Nitrogen 26mg/dL (7-20) Creatinine 1.1mg/dL (0.6-1.0) Estimated GFR (Cockcroft-Gault) 47.9 Glucose Level 56mg/dL (70-99) Calcium Level 7.8mg/dL (8.5-10.1) Glucose (Fingerstick) 61mg/dL (70-99) 66mg/dL (70-99) Urine Collection Type Unknown Urine Color Yellow Urine Clarity Clear Urine pH 6.0 Urine Specific [place] 1.025 Urine Protein 30mg/dL (NEG-TRACE) Urine Glucose (UA) Negativemg/dL (NEG) Urine Ketones (Stick) Negativemg/dL (NEG) Urine Blood Trace (NEG) Urine Nitrite Negative (NEG) Urine Bilirubin Negative (NEG) Urine Urobilinogen Dipstick 0.2mg/dL (0.2 mg/dL) Urine Leukocyte Esterase Negative (NEG) Urine RBC 0/HPF (0-2) Urine WBC Occ/HPF (0-4) Urine Squamous Epithelial Cells Few/LPF Urine Bacteria Few/HPF (0-FEW) Urine Hyaline Casts Few/HPF Urine Granular Casts Occasional/HPF Urine Mucus Slight/LPF Test 01/19/17 18:22 01/19/17 20:57 01/20/17 00:07 01/20/17 06:09 Glucose (Fingerstick) 104mg/dL (70-99) 144mg/dL (70-99) 139mg/dL (70-99) White Blood Count 18.2x10^3/uL (4.0-11.0) Red Blood Count 3.23x10^6/uL (3.50-5.40) Hemoglobin 9.0g/dL (12.0-15.5) Hematocrit 28.4% (36.0-47.0) Mean Corpuscular Volume 88fL (79-100) Mean Corpuscular Hemoglobin 28pg (25-35) Mean Corpuscular Hemoglobin Concent 32g/dL (31-37) Red Cell Distribution Width 15.4% (11.5-14.5) Platelet Count 322x10^3/uL (140-400) Neutrophils (%) (Auto) 88% (31-73) Lymphocytes (%) (Auto) 7% (24-48) Monocytes (%) (Auto) 4% (0-9) Eosinophils (%) (Auto) 1% (0-3) Basophils (%) (Auto) 0% (0-3) Neutrophils # (Auto) 15.9x10^3uL (1.8-7.7) Lymphocytes # (Auto) 1.2x10^3/uL (1.0-4.8) Monocytes # (Auto) 0.8x10^3/uL (0.0-1.1) Eosinophils # (Auto) 0.3x10^3/uL (0.0-0.7) Basophils # (Auto) 0.1x10^3/uL (0.0-0.2) Sodium Level 140mmol/L (136-145) Potassium Level 4.8mmol/L (3.5-5.1) Chloride Level 102mmol/L (98-107) Carbon Dioxide Level 31mmol/L (21-32) Anion Gap 7 (6-14) Blood Urea Nitrogen 30mg/dL (7-20) Creatinine 1.1mg/dL (0.6-1.0) Estimated GFR (Cockcroft-Gault) 47.9 BUN/Creatinine Ratio 27 (6-20) Glucose Level 131mg/dL (70-99) Calcium Level 7.3mg/dL (8.5-10.1) Phosphorus Level 4.2mg/dL (2.6-4.7) Magnesium Level 2.3mg/dL (1.8-2.4) Total Bilirubin 1.3mg/dL (0.2-1.0) Aspartate Amino Transf (AST/SGOT) 34U/L (15-37) Alanine Aminotransferase (ALT/SGPT) 94U/L (14-59) Alkaline Phosphatase 115U/L (46-116) Total Protein 4.1g/dL (6.4-8.2) Albumin 1.0g/dL (3.4-5.0) Albumin/Globulin Ratio 0.3 (1.0-1.7) Triglycerides Level 196mg/dL (0-150) Test 01/20/17 06:33 Glucose (Fingerstick) 141mg/dL (70-99) Laboratory Tests Test 01/19/17 12:04 01/19/17 18:22 01/19/17 20:57 01/20/17 00:07 Glucose (Fingerstick) 66mg/dL (70-99) 104mg/dL (70-99) 144mg/dL (70-99) 139mg/dL (70-99) Test 01/20/17 06:09 01/20/17 06:33 White Blood Count 18.2x10^3/uL (4.0-11.0) Red Blood Count 3.23x10^6/uL (3.50-5.40) Hemoglobin 9.0g/dL (12.0-15.5) Hematocrit 28.4% (36.0-47.0) Mean Corpuscular Volume 88fL (79-100) Mean Corpuscular Hemoglobin 28pg (25-35) Mean Corpuscular Hemoglobin Concent 32g/dL (31-37) Red Cell Distribution Width 15.4% (11.5-14.5) Platelet Count 322x10^3/uL (140-400) Neutrophils (%) (Auto) 88% (31-73) Lymphocytes (%) (Auto) 7% (24-48) Monocytes (%) (Auto) 4% (0-9) Eosinophils (%) (Auto) 1% (0-3) Basophils (%) (Auto) 0% (0-3) Neutrophils # (Auto) 15.9x10^3uL (1.8-7.7) Lymphocytes # (Auto) 1.2x10^3/uL (1.0-4.8) Monocytes # (Auto) 0.8x10^3/uL (0.0-1.1) Eosinophils # (Auto) 0.3x10^3/uL (0.0-0.7) Basophils # (Auto) 0.1x10^3/uL (0.0-0.2) Sodium Level 140mmol/L (136-145) Potassium Level 4.8mmol/L (3.5-5.1) Chloride Level 102mmol/L (98-107) Carbon Dioxide Level 31mmol/L (21-32) Anion Gap 7 (6-14) Blood Urea Nitrogen 30mg/dL (7-20) Creatinine 1.1mg/dL (0.6-1.0) Estimated GFR (Cockcroft-Gault) 47.9 BUN/Creatinine Ratio 27 (6-20) Glucose Level 131mg/dL (70-99) Calcium Level 7.3mg/dL (8.5-10.1) Phosphorus Level 4.2mg/dL (2.6-4.7) Magnesium Level 2.3mg/dL (1.8-2.4) Total Bilirubin 1.3mg/dL (0.2-1.0) Aspartate Amino Transf (AST/SGOT) 34U/L (15-37) Alanine Aminotransferase (ALT/SGPT) 94U/L (14-59) Alkaline Phosphatase 115U/L (46-116) Total Protein 4.1g/dL (6.4-8.2) Albumin 1.0g/dL (3.4-5.0) Albumin/Globulin Ratio 0.3 (1.0-1.7) Triglycerides Level 196mg/dL (0-150) Glucose (Fingerstick) 141mg/dL (70-99) Microbiology 01/13/17 Blood Culture - Final, Complete NO GROWTH AFTER 5 DAYS Medications Current Medications Sodium Chloride (Iv Sodium Chloride 0.45%) 1,000 ml @ 80 mls/hr [id number] IV Last administered on 01/08/17 22:17; Start 01/08/17 at 21:03; Stop 01/09/17 at 09: 23; Status DC Ondansetron HCl (Zofran) 4 mg PRN Q6HRS PRN IV NAUSEA/VOMITING Last administered on 01/09/17 15:51; Start 01/08/17 at 21:15; Stop 01/10/17 at 17:41; Status DC Prochlorperazine Edisylate (Compazine) 10 mg PRN Q6HRS PRN IV NAUSEA/VOMITING; Start 01/08/17 at 21:15 Prochlorperazine (Compazine) 25 mg PRN Q12HR PRN AL NAUSEA/VOMITING; Start 01/08 at 21:15 Al Hydroxide/Mg Hydroxide (Mylanta Plus Xs) 30 ml PRN Q3HRS PRN PO HEARTBURN / GAS; Start 01/08/17 at 21:15 Calcium Carbonate/ Glycine (Tums) 500 mg PRN Q3HRS PRN PO UPSET STOMACH; Start 01/08/17 at 21:15; Stop 01/08/17 at 21:20; Status DC Oxycodone HCl (Roxicodone) 5 mg PRN Q3HRS PRN PO BREAKTHROUGH PAIN Last administered on 01/20/17 09:13; Start 01/08/17 at 21:15 Morphine Sulfate 1 mg PRN Q2HR PRN IV PAIN Last administered on 01/10/17 08:51 ; Start 01/08/17 at 21:15; Stop 01/11/17 at 08:13; Status DC Acetaminophen (Tylenol) 650 mg PRN Q6HRS PRN PO MILD PAIN / TEMP; Start at 21:15 Docusate Sodium (Colace) 100 mg BID PO Last administered on 01/20/17 09:10; Start 01/08/17 at 22:00 Magnesium Hydroxide (Milk Of Magnesia) 2,400 mg PRN Q12HR PRN PO CONSTIPATION; Start 01/08/17 at 21:15 Bisacodyl (Dulcolax Supp) 10 mg PRN DAILY PRN AL CONSTIPATION; Start 01/08/17 at 21:15 Enoxaparin Sodium (Lovenox 40mg Syringe) 40 mg Q24H SQ ; Start 01/08/17 at 22:00 ; Stop 01/08/17 at 22:00; Status DC Pantoprazole Sodium (Protonix Vial) 40 mg DAILYAC IVP Last administered on 01/19 07:30; Start 01/09/17 at 07:30; Stop 01/19/17 at 11:48; Status DC Enoxaparin Sodium 30 mg 30 mg Q24H SQ Last administered on 01/08/17 22:20; Start 01/08/17 at 22:00; Stop 01/09/17 at 09:24; Status DC Cefoxitin Sodium (Mefoxin 2gm Ivpb For Omni) 100 ml @ 200 mls/hr 1X PERIOP IV ; Start 01/09/17 at 08:45; Stop 01/10/17 at 11:49; Status DC Cetirizine HCl (Zyrtec) 10 mg DAILY PO Last administered on 01/20/17 09:10; Start 01/09/17 at 10:30 Guaifenesin (Mucinex) 600 mg PRN Q8HRS PRN PO CONGESTION; Start 01/09/17 at 09: 30 Levothyroxine Sodium (Synthroid) 50 mcg DAILYAC PO Last administered on 10:27; Start 01/09/17 at 10:30; Stop 01/11/17 at 08:19; Status DC Tramadol HCl (Ultram) 50 mg PRN Q6HRS PRN PO PAIN Last administered on 18:44; Start 01/09/17 at 09:30 Non-Formulary Medication 2 puff QID INH ; Start 01/09/17 at 13:00; Status UNV Metoprolol Tartrate (Lopressor) 25 mg BID PO Last administered on 01/11/17 21: 38; Start 01/09/17 at 10:30; Stop 01/13/17 at 14:20; Status DC Fluticasone Propionate 2 spray 2 spray DAILY NS Last administered on 01/09/17 10:28; Start 01/09/17 at 10:30; Stop 01/09/17 at 13:10; Status DC Amino Acids/ Electrolytes/ Dextrose (Clinimix E 4.25%-5% Solution) 1,000 ml @ 80 mls/hr [id number] IV Last administered on 01/10/17 01:00; Start 01/09/17 at 10: 30; Stop 01/11/17 at 21:59; Status DC Enoxaparin Sodium (Lovenox 30mg Syringe) 30 mg Q24H SQ ; Start 01/09/17 at 10:00 ; Stop 01/09/17 at 10:00; Status DC Enoxaparin Sodium (Lovenox 30mg Syringe) 30 mg 1X ONCE SQ ; Start 01/09/17 at 10 :00; Stop 01/09/17 at 10:00; Status DC Enoxaparin Sodium (Lovenox 30mg Syringe) 30 mg Q24H SQ ; Start 01/10/17 at 21:00 ; Stop 01/11/17 at 09:42; Status DC Albuterol Sulfate (Ventolin Neb Soln) 2.5 mg RTQID NEB Last administered on 11:05; Start 01/09/17 at 12:00 Fluticasone Propionate (Flonase) 2 spray DAILY NS Last administered on 09:11; Start 01/09/17 at 13:10 Ondansetron HCl (Zofran) 4 mg PRN Q6HRS PRN IV NAUSEA/VOMITING; Start 01/10/17 at 07:30; Stop 01/10/17 at 18:00; Status DC Fentanyl Citrate (Fentanyl 2ml Vial) 25 mcg PRN Q5MIN PRN IV MILD PAIN; Start 01/10/17 at 07:30; Stop 01/10/17 at 18:00; Status DC Fentanyl Citrate 50 mcg 50 mcg PRN Q5MIN PRN IV MODERATE PAIN; Start 01/10/17 at 07:30; Stop 01/10/17 at 18:00; Status DC Lactated Ringer's (Iv Lactated Ringers) 1,000 ml @ 30 mls/hr Q24H IV ; Start at 07:28; Stop 01/10/17 at 19:27; Status DC Prochlorperazine Edisylate (Compazine) 5 mg PACU PRN PRN IV NAUSEA, MRX1; Start 01/10/17 at 07:30; Stop 01/10/17 at 18:00; Status DC Desflurane (Suprane) 90 ml STK-MED ONCE IH ; Start 01/10/17 at 09:03; Stop at 09:04; Status DC Fentanyl Citrate (Fentanyl 2ml Vial) 100 mcg STK-MED ONCE .ROUTE ; Start at 09:03; Stop 01/10/17 at 09:04; Status DC Rocuronium [place] 50 mg 50 mg STK-MED ONCE .ROUTE ; Start 01/10/17 at 09:03; Stop 01/10/17 at 09:04; Status DC Propofol (Diprivan) 20 ml @ As Directed STK-MED ONCE IV ; Start 01/10/17 at 09:04 ; Stop 01/10/17 at 09:05; Status DC Ondansetron HCl (Zofran) 4 mg STK-MED ONCE .ROUTE ; Start 01/10/17 at 09:04; Stop 01/10/17 at 09:05; Status DC Dexamethasone Sodium Phosphate (Decadron) 20 mg STK-MED ONCE .ROUTE ; Start 01/10 at 09:04; Stop 01/10/17 at 09:05; Status DC Lidocaine HCl (Lidocaine HCl 2% Abboject) 100 mg STK-MED ONCE .ROUTE ; Start 01/10/17 at 09:04; Stop 01/10/17 at 09:05; Status DC Phenylephrine HCl (Rodrigue-Synephrine Inj) 10 mg STK-MED ONCE .ROUTE ; Start at 09:27; Stop 01/10/17 at 09:28; Status DC Fentanyl Citrate (Fentanyl 5ml Vial) 250 mcg STK-MED ONCE .ROUTE ; Start at 10:17; Stop 01/10/17 at 10:18; Status DC Rocuronium [place] 50 mg 50 mg STK-MED ONCE .ROUTE ; Start 01/10/17 at 10:26; Stop 01/10/17 at 10:27; Status DC Albumin Human (Plasmanate) 500 ml @ As Directed STK-MED ONCE IV ; Start at 11:32; Stop 01/10/17 at 11:33; Status DC Lorazepam (Ativan) 2 mg STK-MED ONCE .ROUTE ; Start 01/10/17 at 11:38; Stop at 11:39; Status DC Cellulose 1 each 1 each STK-MED ONCE .ROUTE Last administered on 01/10/17 10:23 ; Start 01/10/17 at 12:09; Stop 01/10/17 at 12:10; Status DC Albumin Human (Plasmanate) 500 ml @ As Directed STK-MED ONCE IV ; Start at 12:14; Stop 01/10/17 at 12:15; Status DC Phenylephrine HCl (Rodrigue-Synephrine Inj) 10 mg STK-MED ONCE .ROUTE ; Start at 12:14; Stop 01/10/17 at 12:15; Status DC Cellulose 1 each STK-MED ONCE .ROUTE Last administered on 01/10/17 10:23; Start 01/10/17 at 12:46; Stop 01/10/17 at 12:47; Status DC Lorazepam (Ativan) 2 mg STK-MED ONCE .ROUTE ; Start 01/10/17 at 12:47; Stop at 12:48; Status DC Phenylephrine HCl (Rodrigue-Synephrine Inj) 10 mg STK-MED ONCE .ROUTE ; Start at 12:55; Stop 01/10/17 at 12:56; Status DC Vasopressin (Vasostrict) 20 unit STK-MED ONCE .ROUTE ; Start 01/10/17 at 12:58; Stop 01/10/17 at 12:59; Status DC Norepinephrine Bitartrate (Levophed Vial) 4 mg STK-MED ONCE IV ; Start 01/10/17 at 13:00; Stop 01/10/17 at 13:01; Status DC Norepinephrine Bitartrate (Levophed Vial) 4 mg STK-MED ONCE IV ; Start 01/10/17 at 13:00; Stop 01/10/17 at 13:01; Status DC Rocuronium [place] (Zemuron) 50 mg STK-MED ONCE .ROUTE ; Start 01/10/17 at 13:30 ; Stop 01/10/17 at 13:31; Status DC Famotidine (Pepcid) 20 mg QHS IVP ; Start 01/10/17 at 21:00; Stop 01/11/17 at 08: 15; Status DC Sodium Chloride 3 ml 3 ml QSHIFT PRN IV AFTER MEDS AND BLOOD DRAWS; Start at 13:45; Stop 01/12/17 at 14:37; Status DC Lactated Ringer's (Iv Lactated Ringers) 1,000 ml @ 100 mls/hr Q10H IV Last administered on 01/12/17 05:17; Start 01/10/17 at 13:43; Stop 01/12/17 at 13:21 ; Status DC Morphine Sulfate 1 mg PRN Q1HR PRN IV PAIN Last administered on 01/16/17 13:18 ; Start 01/10/17 at 13:45 Ondansetron HCl (Zofran) 4 mg PRN Q6HRS PRN IV NAUESA, 1ST CHOICE Last administered on 01/16/17 00:22; Start 01/10/17 at 13:45 Cellulose 2 each STK-MED ONCE TP Last administered on 01/10/17 10:23; Start 01/10/17 at 10:23; Stop 01/10/17 at 14:25; Status DC Lorazepam (Ativan) 2 mg STK-MED ONCE .ROUTE ; Start 01/10/17 at 20:59; Stop at 21:00; Status DC Rocuronium [place] 50 mg 50 mg STK-MED ONCE .ROUTE ; Start 01/10/17 at 21:30; Stop 01/10/17 at 21:31; Status DC Cefoxitin Sodium (Mefoxin 2gm Ivpb For Omni) 100 ml @ As Directed STK-MED ONCE IV ; Start 01/10/17 at 21:45; Stop 01/10/17 at 21:46; Status DC Cellulose 1 each STK-MED ONCE .ROUTE Last administered on 01/10/17 21:47; Start 01/10/17 at 21:48; Stop 01/10/17 at 21:49; Status DC Cellulose 2 each STK-MED ONCE TP Last administered on 01/10/17 21:47; Start 01/10/17 at 21:47; Stop 01/10/17 at 22:14; Status DC Sodium Chloride 3 ml 3 ml QSHIFT PRN IV AFTER MEDS AND BLOOD DRAWS; Start at 22:30 Fentanyl Citrate 30 ml @ 0 mls/hr CONT PRN IV PROTOCOL Last administered on 07:44; Start 01/10/17 at 22:30; Stop 01/16/17 at 11:23; Status DC Propofol (Diprivan) 100 ml @ 0 mls/hr CONT PRN IV PER PROTOCOL Last administered on 01/13/17 18:39; Start 01/10/17 at 22:30; Stop 01/16/17 at 11:12 ; Status DC Chlorhexidine Gluconate 15 ml 15 ml BID MM Last administered on 01/15/17 20:49 ; Start 01/11/17 at 09:00; Stop 01/16/17 at 11:22; Status DC Sodium Chloride 1,000 ml @ 1,000 mls/hr 1X ONCE IV Last administered on 02:30; Start 01/11/17 at 02:30; Stop 01/11/17 at 03:29; Status DC Levothyroxine Sodium 25 mcg/ Sodium Chloride 5 ml @ 100 mls/hr DAILY IVP Last administered on 01/19/17 09:13; Start 01/11/17 at 09:00; Stop 01/19/17 at 11:49 ; Status DC Sodium Chloride (Iv Sodium Chloride 0.9% 500ml Bag) 500 ml @ 500 mls/hr 1X ONCE IV Last administered on 01/11/17 09:45; Start 01/11/17 at 09:45; Stop at 10:44; Status DC Heparin Sodium (Porcine) 5,000 unit Q8HRS SQ ; Start 01/11/17 at 14:00; Stop 01/11 at 16:45; Status DC Info 1 each 1 each PRN DAILY PRN MC SEE COMMENTS Last administered on 13:17; Start 01/11/17 at 10:15 Norepinephrine Bitartrate 8 mg/ Sodium Chloride 258 ml @ 0 mls/hr CONT PRN IV SEE I/O RECORD Last administered on 01/11/17 12:58; Start 01/11/17 at 11:15; Stop 01/16/17 at 11:22; Status DC Lactated Ringer's 500 ml @ 500 mls/hr PRN Q2HRS PRN IV HYPOTENTION; Start 01/11 at 13:15 Sodium Chloride 500 ml @ 500 mls/hr PRN Q2HR PRN IV hypotention; Start at 13:15 Sodium Acetate/ Potassium Acetate/ Potassium Phosphate/ Magnesium Sulfate/ Calcium Gluconate/ Chromium/Copper/ Manganese/Seleni/ Zn/Total Parenteral Nutrition/Amino Acids/Dextrose/ Fat Emulsion Intravenous (Potassium Phosphate/ Calcium Gluconate/ Multitrace-5 Conc/ Tpn - Tpn Flu... 1,512 ml @ 63 mls/hr TPN CONT IV Last administered on 01/11/17 21:39; Start 01/11/17 at 22:00; Stop 01/12/17 at 21:59; Status DC Info 1 each PRN DAILY PRN MC SEE COMMENTS; Start 01/11/17 at 13:45; Status UNV Cefoxitin Sodium 4 gm 4 gm STK-MED ONCE IV ; Start 01/10/17 at 12:00; Stop at 08:16; Status DC Sodium Chloride (Iv Sodium Chloride 0.9% 1000ml Bag) 1,000 ml @ 60 mls/hr [id number] IV Last administered on 01/17/17 12:21; Start 01/12/17 at 13:15; Stop 01/19/17 at 11:48; Status DC Insulin Aspart (Novolog) 0-7 UNITS TIDWMEALS SQ Last administered on 01/12/17 17:06; Start 01/12/17 at 17:00; Stop 01/13/17 at 00:28; Status DC Dextrose 12.5 gm 12.5 gm PRN Q15MIN PRN IV SEE COMMENTS; Start 01/12/17 at 13: 30 Magnesium Sulfate/ Dextrose 50 ml @ 25 mls/hr 1X ONCE IV Last administered on 01/12/17 14:16; Start 01/12/17 at 14:00; Stop 01/12/17 at 15:59; Status DC Potassium Phosphate 10 mmol/ Sodium Chloride 103.3333 ml @ 51.667 m... 1X ONCE IV Last administered on 01/12/17 14:16; Start 01/12/17 at 14:00; Stop 07/21 at 15:59; Status DC Sodium Acetate/ Potassium Acetate/ Potassium Phosphate/ Magnesium Sulfate/ Calcium Gluconate/ Chromium/Copper/ Manganese/Seleni/ Zn/Total Parenteral Nutrition/Amino Acids/Dextrose/ Fat Emulsion Intravenous (Potassium Phosphate/ Calcium Gluconate/ Multitrace-5 Conc/ Tpn - Tpn Flu... 1,512 ml @ 63 mls/hr TPN CONT IV Last administered on 01/12/17 22:09; Start 01/12/17 at 22:00; Stop 01/13/17 at 21:59; Status DC Darbepoetin Luis (Aranesp) 60 mcg [id number] SQ Last administered on 01/19/17 20 :58; Start 01/12/17 at 21:00 Insulin Aspart 0-7 UNITS Q6HRS SQ Last administered on 01/18/17 17:30; Start 01/13/17 at 00:30 Piperacillin Sod/ Tazobactam Sod 3.375 gm/Sodium Chloride 50 ml @ 100 mls/hr Q8HRS IV Last administered on 01/13/17 12:07; Start 01/13/17 at 12:00; Stop at 12:55; Status DC Sodium Acetate 70 meq/Potassium Acetate 60 meq/ Potassium Phosphate 20 mmol/ Magnesium Sulfate 15 meq/Calcium Gluconate 10 meq/ Multivitamins 10 ml/Chromium / Copper/Manganese/ Seleni/Zn 1 ml/ Insulin Human Regular 15 unit/ Total Parenteral Nutrition/Amino Acids/Dextrose/ Fat Emulsion Intravenous 1,512 ml @ 63 mls/hr TPN CONT IV Last administered on 01/13/17 22:35; Start 01/13/17 at 22:00; Stop 01/14/17 at 21:59; Status DC Piperacillin Sod/ Tazobactam Sod/ Sodium Chloride (Zosyn/Iv Sodium Chloride 0.9 % 50ml) 50 ml @ 100 mls/hr Q6HRS IV Last administered on 01/20/17 06:11; Start 01/13/17 at 18:00 Metoprolol Tartrate (Lopressor) 5 mg Q6HRS IVP Last administered on 01/18/17 17:22; Start 01/13/17 at 18:00; Stop 01/19/17 at 11:50; Status DC Dextrose (Dextrose 50%-Water Syringe) 25 gm 1X ONCE IV ; Start 01/13/17 at 16: 45; Stop 01/13/17 at 16:46; Status DC Insulin Detemir 15 units 15 units QHS SQ Last administered on 01/18/17 21:40; Start 01/14/17 at 21:00; Stop 01/19/17 at 11:14; Status DC Sodium Acetate 70 meq/Potassium Acetate 45 meq/ Potassium Phosphate 20 mmol/ Magnesium Sulfate 15 meq/Calcium Gluconate 10 meq/ Multivitamins 10 ml/Chromium / Copper/Manganese/ Seleni/Zn 1 ml/ Total Parenteral Nutrition/Amino Acids/ Dextrose/ Fat Emulsion Intravenous 1,512 ml @ 63 mls/hr TPN CONT IV Last administered on 01/14/17 21:42; Start 01/14/17 at 22:00; Stop 01/15/17 at 21:59 ; Status DC Sodium Acetate 70 meq/Potassium Acetate 45 meq/ Potassium Phosphate 20 mmol/ Magnesium Sulfate 15 meq/Calcium Gluconate 10 meq/ Multivitamins 10 ml/Chromium / Copper/Manganese/ Seleni/Zn 1 ml/ Total Parenteral Nutrition/Amino Acids/ Dextrose/ Fat Emulsion Intravenous 1,512 ml @ 63 mls/hr TPN CONT IV Last administered on 01/15/17 22:22; Start 01/15/17 at 22:00; Stop 01/16/17 at 21:59 ; Status DC Sodium Acetate 70 meq/Potassium Acetate 45 meq/ Potassium Phosphate 20 mmol/ Magnesium Sulfate 15 meq/Calcium Gluconate 10 meq/ Multivitamins 10 ml/Chromium / Copper/Manganese/ Seleni/Zn 1 ml/ Total Parenteral Nutrition/Amino Acids/ Dextrose/ Fat Emulsion Intravenous 1,512 ml @ 63 mls/hr TPN CONT IV Last administered on 01/16/17 22:28; Start 01/16/17 at 22:00; Stop 01/17/17 at 21:59 ; Status DC Sodium Acetate/ Potassium Acetate/ Potassium Phosphate/ Magnesium Sulfate/ Calcium Gluconate/ Multivitamins/ Chromium/Copper/ Manganese/Seleni/ Zn/Total Parenteral Nutrition/Amino Acids/Dextrose/ Fat Emulsion Intravenous (Potassium Phosphate/Calcium Gluconate/ Infuvite Wild... 1,512 ml @ 63 mls/hr TPN CONT IV Last administered on 01/17/17 21:51; Start 01/17/17 at 22:00; Stop 01/18/17 at 21:59; Status DC Bumetanide (Bumex) 1 mg 1X ONCE IV Last administered on 01/17/17 19:45; Start 01/17/17 at 20:00; Stop 01/17/17 at 20:01; Status DC Bumetanide 1 mg 1 mg 1X ONCE IV Last administered on 01/18/17 04:27; Start at 04:30; Stop 01/18/17 at 04:31; Status DC Sodium Acetate/ Potassium Acetate/ Potassium Phosphate/ Magnesium Sulfate/ Calcium Gluconate/ Multivitamins/ Chromium/Copper/ Manganese/Seleni/ Zn/ Potassium Chloride/Total Parenteral Nutrition/Amino Acids/Dextrose/ Fat Emulsion Intravenous (Potassium Phosphate/Calcium Glucona... 1,512 ml @ 63 mls/ hr TPN CONT IV Last administered on 01/18/17 21:30; Start 01/18/17 at 22:00; Stop 01/19/17 at 21:59; Status DC Insulin Detemir (Levemir) 10 units QHS SQ Last administered on 01/19/17 21:02 ; Start 01/19/17 at 21:00 Pantoprazole Sodium (Protonix) 40 mg DAILYAC PO Last administered on 01/20/17 09:10; Start 01/20/17 at 07:30 Levothyroxine Sodium (Synthroid) 50 mcg DAILY07 PO Last administered on 06:15; Start 01/20/17 at 07:00 Metoprolol Tartrate 25 mg 25 mg BID PO Last administered on 01/20/17 09:10; Start 01/19/17 at 21:00 Sodium Chloride 90 meq/Potassium Chloride 50 meq/ Potassium Acetate 45 meq/ Potassium Phosphate 20 mmol/ Magnesium Sulfate 15 meq/Calcium Gluconate 10 meq/ Multivitamins 10 ml/Chromium/ Copper/Manganese/ Seleni/Zn 1 ml/ Total Parenteral Nutrition/Amino Acids/Dextrose/ Fat Emulsion Intravenous 1,512 ml @ 63 mls/hr TPN CONT IV Last administered on 01/19/17 22:00; Start 01/19/17 at 22:00; Stop 01/20/17 at 21:59 Potassium Chloride (KCl Premix 20meq) 50 ml @ 50 mls/hr Q1H IV Last administered on 01/19/17 15:17; Start 01/19/17 at 14:00; Stop 01/19/17 at 15:59 ; Status DC Active Scripts Active Reported Pred Forte (Prednisolone Acetate) 1 Ml Drops.susp 1 Ml OU BID PRN Visine Allergy Relief Drop (Tetrahydrozoline Hcl/Zn Sulf) 15 Ml Drops 1 Drop OU PRN Thera Tears (Carboxymethylcellulose Sodium) 15 Ml Drops 1 Drop OU PRN Jaime-128 (Sodium Chloride) 15 Ml Drops 1 Drop OU PRN Tramadol Hcl 100 Mg Tbmp.24hr 100 Mg PO Q6H PRN Tramadol Hcl 50 Mg Tablet 50 Mg PO Q6H PRN Zyrtec (Cetirizine Hcl) 10 Mg Tablet 10 Mg PO DAILY Nasacort (Triamcinolone Acetonide) 10.8 Ml Portia 2 Portia NS DAILY Proair Hfa Inhaler (Albuterol Sulfate) 8.5 Gm Hfa.aer.ad 2 Puff INH QID Mucinex (Guaifenesin) 600 Mg Tablet.er 600 Mg PO Q8HRS PRN Levothyroxine Sodium 50 Mcg Tablet 50 Mcg PO DAILYAC Dyazide 37.5-25 Capsule (Triamterene/Hydrochlorothiazid) 1 Each Capsule 1 Cap PO DAILY Bystolic (Nebivolol) 5 Mg Tablet 5 Mg PO DAILY Vitals/I & O Vital Sign - Last 24 Hours 01/19/17 01/19/17 01/19/17 01/19/17 12:13 15:01 16:42 19:00 Temp 97.7 97.4 97.7 97.4 Pulse 95 103 Resp 18 18 B/P 115/61 128/59 Pulse Ox 96 95 93 O2 Delivery Nasal Cannula Nasal Cannula Nasal Cannula Nasal Cannula O2 Flow Rate 3.0 3.0 3.0 3.0 01/19/17 01/19/17 01/19/17 01/19/17 19:50 19:54 20:05 20:58 Pulse 103 Resp 16 B/P 128/59 Pulse Ox 94 O2 Delivery Nasal Cannula Nasal Cannula Nasal Cannula O2 Flow Rate 3.0 3.5 3.5 01/19/17 01/20/17 01/20/17 01/20/17 23:59 03:00 06:16 07:00 Temp 97.8 97.5 97.8 97.8 97.5 97.8 Pulse 99 96 107 Resp 18 18 16 28 B/P 118/77 120/52 136/57 Pulse Ox 96 97 95 O2 Delivery Nasal Cannula Nasal Cannula Nasal Cannula Nasal Cannula O2 Flow Rate 3.0 3.0 3.0 3.0 01/20/17 01/20/17 01/20/17 01/20/17 07:20 07:24 07:30 09:10 Pulse 107 Resp 14 B/P 136/57 Pulse Ox 93 O2 Delivery Nasal Cannula Nasal Cannula Nasal Cannula O2 Flow Rate 2.5 3.0 2.5 01/20/17 01/20/17 09:13 11:00 Temp 97.6 97.6 Pulse 101 Resp 14 24 B/P 132/59 Pulse Ox 94 O2 Delivery Nasal Cannula Nasal Cannula O2 Flow Rate 2.5 3.0 Intake and Output 01/19/17 01/19/17 01/20/17 15:00 23:00 07:00 Intake Total 1090 ml 1931 ml Output Total 825 ml 1550 ml Balance 265 ml 381 ml STEF COOPER MD Jan 20, 2017 11:40
[2017-01-20 13:31] LABS: % EOS 1 % (0-5); PLT ESTIMATE INCREASED (ADEQUATE)
--- NOTE | 2017-01-20 14:28 | PDOC ---
PROGRESS NOTES Chief Complaint Chief Complaint Pancreatic mass w/obstruction ASSESSMENT AND PLAN: s/p palliative resection of pancreatic Ca on 01/[address] Jenkins. extensive lysis of adhesions, partial colectomy, extended small-bowel resection, left nephrectomy, splenectomy, distal pancreatectomy, partial gastrectomy Anemia: acute blood loss and chronic inflammation. stable - sl improved Leukocytosis: persistent. unclear etiology. no infectious source apparent, blood cult from 01/13 NG. remains on empiric Abx Thrombocytopenia: resolved Coagulopathy: resolved SIRS: resolved DM: fair control while on TPN. Nutrition: started on clear liquids, tolerating. advance to full liquids, keep TPN for now 2/2 malnutrition until full PO FREDIS: resolved HTN: well controlled off meds asthma: nebs PRN History of Present Illness History of Present Illness fu with gi, sx, onco on full liquid, tpn ssi repeat CXR tmr path still pending ptot poor prognosis consider LTAC Vitals Vitals Vital Signs Date Time Temp Pulse Resp B/P Pulse Ox O2 Delivery O2 Flow Rate FiO2 01/20/17 11:07 95 Nasal Cannula 3.0 01/20/17 11:00 97.6 101 24 132/59 97.6 Physical Exam General: Alert, Oriented X3 Heart: Normal S1, Normal S2 Lungs: Crackles (bl basilar mild crackles), Other Abdomen: Soft, Other (ostomy with stool, incision c/d/i) Extremities: No clubbing, No cyanosis, Other (bl leg 2+ edema) Skin: No rashes, No significant lesion, Other (dressing clean, dry, and intact. ) Labs LABS Laboratory Tests Test 01/19/17 18:22 01/19/17 20:57 01/20/17 00:07 01/20/17 06:09 Glucose (Fingerstick) 104mg/dL (70-99) 144mg/dL (70-99) 139mg/dL (70-99) White Blood Count 18.2x10^3/uL (4.0-11.0) Red Blood Count 3.23x10^6/uL (3.50-5.40) Hemoglobin 9.0g/dL (12.0-15.5) Hematocrit 28.4% (36.0-47.0) Mean Corpuscular Volume 88fL (79-100) Mean Corpuscular Hemoglobin 28pg (25-35) Mean Corpuscular Hemoglobin Concent 32g/dL (31-37) Red Cell Distribution Width 15.4% (11.5-14.5) Platelet Count 322x10^3/uL (140-400) Neutrophils (%) (Auto) 88% (31-73) Lymphocytes (%) (Auto) 7% (24-48) Monocytes (%) (Auto) 4% (0-9) Eosinophils (%) (Auto) 1% (0-3) Basophils (%) (Auto) 0% (0-3) Neutrophils # (Auto) 15.9x10^3uL (1.8-7.7) Lymphocytes # (Auto) 1.2x10^3/uL (1.0-4.8) Monocytes # (Auto) 0.8x10^3/uL (0.0-1.1) Eosinophils # (Auto) 0.3x10^3/uL (0.0-0.7) Basophils # (Auto) 0.1x10^3/uL (0.0-0.2) Segmented Neutrophils % 93% (35-66) Lymphocytes % 4% (24-48) Monocytes % 2% (0-10) Eosinophils % 1% (0-5) Platelet Estimate Increased (ADEQUATE) Large Platelets Occ Sodium Level 140mmol/L (136-145) Potassium Level 4.8mmol/L (3.5-5.1) Chloride Level 102mmol/L (98-107) Carbon Dioxide Level 31mmol/L (21-32) Anion Gap 7 (6-14) Blood Urea Nitrogen 30mg/dL (7-20) Creatinine 1.1mg/dL (0.6-1.0) Estimated GFR (Cockcroft-Gault) 47.9 BUN/Creatinine Ratio 27 (6-20) Glucose Level 131mg/dL (70-99) Calcium Level 7.3mg/dL (8.5-10.1) Phosphorus Level 4.2mg/dL (2.6-4.7) Magnesium Level 2.3mg/dL (1.8-2.4) Total Bilirubin 1.3mg/dL (0.2-1.0) Aspartate Amino Transf (AST/SGOT) 34U/L (15-37) Alanine Aminotransferase (ALT/SGPT) 94U/L (14-59) Alkaline Phosphatase 115U/L (46-116) Total Protein 4.1g/dL (6.4-8.2) Albumin 1.0g/dL (3.4-5.0) Albumin/Globulin Ratio 0.3 (1.0-1.7) Triglycerides Level 196mg/dL (0-150) Test 01/20/17 06:33 01/20/17 11:59 Glucose (Fingerstick) 141mg/dL (70-99) 153mg/dL (70-99) Assessment and Plan Assessmemt and Plan Problems Medical Problems: (1) Pancreatic mass Status: Acute Problems: Comment Review of Relevant I have reviewed the following items [place] (where applicable) has been applied. Labs Laboratory Tests Test 01/18/17 17:15 01/18/17 23:58 01/19/17 06:19 01/19/17 06:35 Glucose (Fingerstick) 171mg/dL (70-99) 149mg/dL (70-99) 61mg/dL (70-99) White Blood Count 24.7x10^3/uL (4.0-11.0) Red Blood Count 3.38x10^6/uL (3.50-5.40) Hemoglobin 9.5g/dL (12.0-15.5) Hematocrit 29.1% (36.0-47.0) Mean Corpuscular Volume 86fL (79-100) Mean Corpuscular Hemoglobin 28pg (25-35) Mean Corpuscular Hemoglobin Concent 33g/dL (31-37) Red Cell Distribution Width 15.0% (11.5-14.5) Platelet Count 274x10^3/uL (140-400) Neutrophils (%) (Auto) 85% (31-73) Lymphocytes (%) (Auto) 8% (24-48) Monocytes (%) (Auto) 6% (0-9) Eosinophils (%) (Auto) 1% (0-3) Basophils (%) (Auto) 0% (0-3) Neutrophils # (Auto) 21.0x10^3uL (1.8-7.7) Lymphocytes # (Auto) 2.0x10^3/uL (1.0-4.8) Monocytes # (Auto) 1.4x10^3/uL (0.0-1.1) Eosinophils # (Auto) 0.2x10^3/uL (0.0-0.7) Basophils # (Auto) 0.1x10^3/uL (0.0-0.2) Sodium Level 139mmol/L (136-145) Potassium Level 3.1mmol/L (3.5-5.1) Chloride Level 100mmol/L (98-107) Carbon Dioxide Level 33mmol/L (21-32) Anion Gap 6 (6-14) Blood Urea Nitrogen 26mg/dL (7-20) Creatinine 1.1mg/dL (0.6-1.0) Estimated GFR (Cockcroft-Gault) 47.9 Glucose Level 56mg/dL (70-99) Calcium Level 7.8mg/dL (8.5-10.1) Test 01/19/17 08:27 01/19/17 09:15 01/19/17 12:04 01/19/17 18:22 Glucose (Fingerstick) 61mg/dL (70-99) 66mg/dL (70-99) 104mg/dL (70-99) Urine Collection Type Unknown Urine Color Yellow Urine Clarity Clear Urine pH 6.0 Urine Specific Reading 1.025 Urine Protein 30mg/dL (NEG-TRACE) Urine Glucose (UA) Negativemg/dL (NEG) Urine Ketones (Stick) Negativemg/dL (NEG) Urine Blood Trace (NEG) Urine Nitrite Negative (NEG) Urine Bilirubin Negative (NEG) Urine Urobilinogen Dipstick 0.2mg/dL (0.2 mg/dL) Urine Leukocyte Esterase Negative (NEG) Urine RBC 0/HPF (0-2) Urine WBC Occ/HPF (0-4) Urine Squamous Epithelial Cells Few/LPF Urine Bacteria Few/HPF (0-FEW) Urine Hyaline Casts Few/HPF Urine Granular Casts Occasional/HPF Urine Mucus Slight/LPF Test 01/19/17 20:57 01/20/17 00:07 01/20/17 06:09 01/20/17 06:33 Glucose (Fingerstick) 144mg/dL (70-99) 139mg/dL (70-99) 141mg/dL (70-99) White Blood Count 18.2x10^3/uL (4.0-11.0) Red Blood Count 3.23x10^6/uL (3.50-5.40) Hemoglobin 9.0g/dL (12.0-15.5) Hematocrit 28.4% (36.0-47.0) Mean Corpuscular Volume 88fL (79-100) Mean Corpuscular Hemoglobin 28pg (25-35) Mean Corpuscular Hemoglobin Concent 32g/dL (31-37) Red Cell Distribution Width 15.4% (11.5-14.5) Platelet Count 322x10^3/uL (140-400) Neutrophils (%) (Auto) 88% (31-73) Lymphocytes (%) (Auto) 7% (24-48) Monocytes (%) (Auto) 4% (0-9) Eosinophils (%) (Auto) 1% (0-3) Basophils (%) (Auto) 0% (0-3) Neutrophils # (Auto) 15.9x10^3uL (1.8-7.7) Lymphocytes # (Auto) 1.2x10^3/uL (1.0-4.8) Monocytes # (Auto) 0.8x10^3/uL (0.0-1.1) Eosinophils # (Auto) 0.3x10^3/uL (0.0-0.7) Basophils # (Auto) 0.1x10^3/uL (0.0-0.2) Segmented Neutrophils % 93% (35-66) Lymphocytes % 4% (24-48) Monocytes % 2% (0-10) Eosinophils % 1% (0-5) Platelet Estimate Increased (ADEQUATE) Large Platelets Occ Sodium Level 140mmol/L (136-145) Potassium Level 4.8mmol/L (3.5-5.1) Chloride Level 102mmol/L (98-107) Carbon Dioxide Level 31mmol/L (21-32) Anion Gap 7 (6-14) Blood Urea Nitrogen 30mg/dL (7-20) Creatinine 1.1mg/dL (0.6-1.0) Estimated GFR (Cockcroft-Gault) 47.9 BUN/Creatinine Ratio 27 (6-20) Glucose Level 131mg/dL (70-99) Calcium Level 7.3mg/dL (8.5-10.1) Phosphorus Level 4.2mg/dL (2.6-4.7) Magnesium Level 2.3mg/dL (1.8-2.4) Total Bilirubin 1.3mg/dL (0.2-1.0) Aspartate Amino Transf (AST/SGOT) 34U/L (15-37) Alanine Aminotransferase (ALT/SGPT) 94U/L (14-59) Alkaline Phosphatase 115U/L (46-116) Total Protein 4.1g/dL (6.4-8.2) Albumin 1.0g/dL (3.4-5.0) Albumin/Globulin Ratio 0.3 (1.0-1.7) Triglycerides Level 196mg/dL (0-150) Test 01/20/17 11:59 Glucose (Fingerstick) 153mg/dL (70-99) Laboratory Tests Test 01/19/17 18:22 01/19/17 20:57 01/20/17 00:07 01/20/17 06:09 Glucose (Fingerstick) 104mg/dL (70-99) 144mg/dL (70-99) 139mg/dL (70-99) White Blood Count 18.2x10^3/uL (4.0-11.0) Red Blood Count 3.23x10^6/uL (3.50-5.40) Hemoglobin 9.0g/dL (12.0-15.5) Hematocrit 28.4% (36.0-47.0) Mean Corpuscular Volume 88fL (79-100) Mean Corpuscular Hemoglobin 28pg (25-35) Mean Corpuscular Hemoglobin Concent 32g/dL (31-37) Red Cell Distribution Width 15.4% (11.5-14.5) Platelet Count 322x10^3/uL (140-400) Neutrophils (%) (Auto) 88% (31-73) Lymphocytes (%) (Auto) 7% (24-48) Monocytes (%) (Auto) 4% (0-9) Eosinophils (%) (Auto) 1% (0-3) Basophils (%) (Auto) 0% (0-3) Neutrophils # (Auto) 15.9x10^3uL (1.8-7.7) Lymphocytes # (Auto) 1.2x10^3/uL (1.0-4.8) Monocytes # (Auto) 0.8x10^3/uL (0.0-1.1) Eosinophils # (Auto) 0.3x10^3/uL (0.0-0.7) Basophils # (Auto) 0.1x10^3/uL (0.0-0.2) Segmented Neutrophils % 93% (35-66) Lymphocytes % 4% (24-48) Monocytes % 2% (0-10) Eosinophils % 1% (0-5) Platelet Estimate Increased (ADEQUATE) Large Platelets Occ Sodium Level 140mmol/L (136-145) Potassium Level 4.8mmol/L (3.5-5.1) Chloride Level 102mmol/L (98-107) Carbon Dioxide Level 31mmol/L (21-32) Anion Gap 7 (6-14) Blood Urea Nitrogen 30mg/dL (7-20) Creatinine 1.1mg/dL (0.6-1.0) Estimated GFR (Cockcroft-Gault) 47.9 BUN/Creatinine Ratio 27 (6-20) Glucose Level 131mg/dL (70-99) Calcium Level 7.3mg/dL (8.5-10.1) Phosphorus Level 4.2mg/dL (2.6-4.7) Magnesium Level 2.3mg/dL (1.8-2.4) Total Bilirubin 1.3mg/dL (0.2-1.0) Aspartate Amino Transf (AST/SGOT) 34U/L (15-37) Alanine Aminotransferase (ALT/SGPT) 94U/L (14-59) Alkaline Phosphatase 115U/L (46-116) Total Protein 4.1g/dL (6.4-8.2) Albumin 1.0g/dL (3.4-5.0) Albumin/Globulin Ratio 0.3 (1.0-1.7) Triglycerides Level 196mg/dL (0-150) Test 01/20/17 06:33 01/20/17 11:59 Glucose (Fingerstick) 141mg/dL (70-99) 153mg/dL (70-99) Microbiology 01/13/17 Blood Culture - Final, Complete NO GROWTH AFTER 5 DAYS Medications Current Medications Sodium Chloride (Iv Sodium Chloride 0.45%) 1,000 ml @ 80 mls/hr [id number] IV Last administered on 01/08/17 22:17; Start 01/08/17 at 21:03; Stop 01/09/17 at 09: 23; Status DC Ondansetron HCl (Zofran) 4 mg PRN Q6HRS PRN IV NAUSEA/VOMITING Last administered on 01/09/17 15:51; Start 01/08/17 at 21:15; Stop 01/10/17 at 17:41; Status DC Prochlorperazine Edisylate (Compazine) 10 mg PRN Q6HRS PRN IV NAUSEA/VOMITING; Start 01/08/17 at 21:15 Prochlorperazine (Compazine) 25 mg PRN Q12HR PRN NE NAUSEA/VOMITING; Start 01/08 at 21:15 Al Hydroxide/Mg Hydroxide (Mylanta Plus Xs) 30 ml PRN Q3HRS PRN PO HEARTBURN / GAS; Start 01/08/17 at 21:15 Calcium Carbonate/ Glycine (Tums) 500 mg PRN Q3HRS PRN PO UPSET STOMACH; Start 01/08/17 at 21:15; Stop 01/08/17 at 21:20; Status DC Oxycodone HCl (Roxicodone) 5 mg PRN Q3HRS PRN PO BREAKTHROUGH PAIN Last administered on 01/20/17 09:13; Start 01/08/17 at 21:15 Morphine Sulfate 1 mg PRN Q2HR PRN IV PAIN Last administered on 01/10/17 08:51 ; Start 01/08/17 at 21:15; Stop 01/11/17 at 08:13; Status DC Acetaminophen (Tylenol) 650 mg PRN Q6HRS PRN PO MILD PAIN / TEMP; Start at 21:15 Docusate Sodium (Colace) 100 mg BID PO Last administered on 01/20/17 09:10; Start 01/08/17 at 22:00 Magnesium Hydroxide (Milk Of Magnesia) 2,400 mg PRN Q12HR PRN PO CONSTIPATION; Start 01/08/17 at 21:15 Bisacodyl (Dulcolax Supp) 10 mg PRN DAILY PRN NE CONSTIPATION; Start 01/08/17 at 21:15 Enoxaparin Sodium (Lovenox 40mg Syringe) 40 mg Q24H SQ ; Start 01/08/17 at 22:00 ; Stop 01/08/17 at 22:00; Status DC Pantoprazole Sodium (Protonix Vial) 40 mg DAILYAC IVP Last administered on 01/19 07:30; Start 01/09/17 at 07:30; Stop 01/19/17 at 11:48; Status DC Enoxaparin Sodium 30 mg 30 mg Q24H SQ Last administered on 01/08/17 22:20; Start 01/08/17 at 22:00; Stop 01/09/17 at 09:24; Status DC Cefoxitin Sodium (Mefoxin 2gm Ivpb For Omni) 100 ml @ 200 mls/hr 1X PERIOP IV ; Start 01/09/17 at 08:45; Stop 01/10/17 at 11:49; Status DC Cetirizine HCl (Zyrtec) 10 mg DAILY PO Last administered on 01/20/17 09:10; Start 01/09/17 at 10:30 Guaifenesin (Mucinex) 600 mg PRN Q8HRS PRN PO CONGESTION; Start 01/09/17 at 09: 30 Levothyroxine Sodium (Synthroid) 50 mcg DAILYAC PO Last administered on 10:27; Start 01/09/17 at 10:30; Stop 01/11/17 at 08:19; Status DC Tramadol HCl (Ultram) 50 mg PRN Q6HRS PRN PO PAIN Last administered on 18:44; Start 01/09/17 at 09:30 Non-Formulary Medication 2 puff QID INH ; Start 01/09/17 at 13:00; Status UNV Metoprolol Tartrate (Lopressor) 25 mg BID PO Last administered on 01/11/17 21: 38; Start 01/09/17 at 10:30; Stop 01/13/17 at 14:20; Status DC Fluticasone Propionate 2 spray 2 spray DAILY NS Last administered on 01/09/17 10:28; Start 01/09/17 at 10:30; Stop 01/09/17 at 13:10; Status DC Amino Acids/ Electrolytes/ Dextrose (Clinimix E 4.25%-5% Solution) 1,000 ml @ 80 mls/hr [id number] IV Last administered on 01/10/17 01:00; Start 01/09/17 at 10: 30; Stop 01/11/17 at 21:59; Status DC Enoxaparin Sodium (Lovenox 30mg Syringe) 30 mg Q24H SQ ; Start 01/09/17 at 10:00 ; Stop 01/09/17 at 10:00; Status DC Enoxaparin Sodium (Lovenox 30mg Syringe) 30 mg 1X ONCE SQ ; Start 01/09/17 at 10 :00; Stop 01/09/17 at 10:00; Status DC Enoxaparin Sodium (Lovenox 30mg Syringe) 30 mg Q24H SQ ; Start 01/10/17 at 21:00 ; Stop 01/11/17 at 09:42; Status DC Albuterol Sulfate (Ventolin Neb Soln) 2.5 mg RTQID NEB Last administered on 11:05; Start 01/09/17 at 12:00 Fluticasone Propionate (Flonase) 2 spray DAILY NS Last administered on 09:11; Start 01/09/17 at 13:10 Ondansetron HCl (Zofran) 4 mg PRN Q6HRS PRN IV NAUSEA/VOMITING; Start 01/10/17 at 07:30; Stop 01/10/17 at 18:00; Status DC Fentanyl Citrate (Fentanyl 2ml Vial) 25 mcg PRN Q5MIN PRN IV MILD PAIN; Start 01/10/17 at 07:30; Stop 01/10/17 at 18:00; Status DC Fentanyl Citrate 50 mcg 50 mcg PRN Q5MIN PRN IV MODERATE PAIN; Start 01/10/17 at 07:30; Stop 01/10/17 at 18:00; Status DC Lactated Ringer's (Iv Lactated Ringers) 1,000 ml @ 30 mls/hr Q24H IV ; Start at 07:28; Stop 01/10/17 at 19:27; Status DC Prochlorperazine Edisylate (Compazine) 5 mg PACU PRN PRN IV NAUSEA, MRX1; Start 01/10/17 at 07:30; Stop 01/10/17 at 18:00; Status DC Desflurane (Suprane) 90 ml STK-MED ONCE IH ; Start 01/10/17 at 09:03; Stop at 09:04; Status DC Fentanyl Citrate (Fentanyl 2ml Vial) 100 mcg STK-MED ONCE .ROUTE ; Start at 09:03; Stop 01/10/17 at 09:04; Status DC Rocuronium [place] 50 mg 50 mg STK-MED ONCE .ROUTE ; Start 01/10/17 at 09:03; Stop 01/10/17 at 09:04; Status DC Propofol (Diprivan) 20 ml @ As Directed STK-MED ONCE IV ; Start 01/10/17 at 09:04 ; Stop 01/10/17 at 09:05; Status DC Ondansetron HCl (Zofran) 4 mg STK-MED ONCE .ROUTE ; Start 01/10/17 at 09:04; Stop 01/10/17 at 09:05; Status DC Dexamethasone Sodium Phosphate (Decadron) 20 mg STK-MED ONCE .ROUTE ; Start 01/10 at 09:04; Stop 01/10/17 at 09:05; Status DC Lidocaine HCl (Lidocaine HCl 2% Abboject) 100 mg STK-MED ONCE .ROUTE ; Start 01/10/17 at 09:04; Stop 01/10/17 at 09:05; Status DC Phenylephrine HCl (Rodrigue-Synephrine Inj) 10 mg STK-MED ONCE .ROUTE ; Start at 09:27; Stop 01/10/17 at 09:28; Status DC Fentanyl Citrate (Fentanyl 5ml Vial) 250 mcg STK-MED ONCE .ROUTE ; Start at 10:17; Stop 01/10/17 at 10:18; Status DC Rocuronium [place] 50 mg 50 mg STK-MED ONCE .ROUTE ; Start 01/10/17 at 10:26; Stop 01/10/17 at 10:27; Status DC Albumin Human (Plasmanate) 500 ml @ As Directed STK-MED ONCE IV ; Start at 11:32; Stop 01/10/17 at 11:33; Status DC Lorazepam (Ativan) 2 mg STK-MED ONCE .ROUTE ; Start 01/10/17 at 11:38; Stop at 11:39; Status DC Cellulose 1 each 1 each STK-MED ONCE .ROUTE Last administered on 01/10/17 10:23 ; Start 01/10/17 at 12:09; Stop 01/10/17 at 12:10; Status DC Albumin Human (Plasmanate) 500 ml @ As Directed STK-MED ONCE IV ; Start at 12:14; Stop 01/10/17 at 12:15; Status DC Phenylephrine HCl (Rodrigue-Synephrine Inj) 10 mg STK-MED ONCE .ROUTE ; Start at 12:14; Stop 01/10/17 at 12:15; Status DC Cellulose 1 each STK-MED ONCE .ROUTE Last administered on 01/10/17 10:23; Start 01/10/17 at 12:46; Stop 01/10/17 at 12:47; Status DC Lorazepam (Ativan) 2 mg STK-MED ONCE .ROUTE ; Start 01/10/17 at 12:47; Stop at 12:48; Status DC Phenylephrine HCl (Rodrigue-Synephrine Inj) 10 mg STK-MED ONCE .ROUTE ; Start at 12:55; Stop 01/10/17 at 12:56; Status DC Vasopressin (Vasostrict) 20 unit STK-MED ONCE .ROUTE ; Start 01/10/17 at 12:58; Stop 01/10/17 at 12:59; Status DC Norepinephrine Bitartrate (Levophed Vial) 4 mg STK-MED ONCE IV ; Start 01/10/17 at 13:00; Stop 01/10/17 at 13:01; Status DC Norepinephrine Bitartrate (Levophed Vial) 4 mg STK-MED ONCE IV ; Start 01/10/17 at 13:00; Stop 01/10/17 at 13:01; Status DC Rocuronium [place] (Zemuron) 50 mg STK-MED ONCE .ROUTE ; Start 01/10/17 at 13:30 ; Stop 01/10/17 at 13:31; Status DC Famotidine (Pepcid) 20 mg QHS IVP ; Start 01/10/17 at 21:00; Stop 01/11/17 at 08: 15; Status DC Sodium Chloride 3 ml 3 ml QSHIFT PRN IV AFTER MEDS AND BLOOD DRAWS; Start at 13:45; Stop 01/12/17 at 14:37; Status DC Lactated Ringer's (Iv Lactated Ringers) 1,000 ml @ 100 mls/hr Q10H IV Last administered on 01/12/17 05:17; Start 01/10/17 at 13:43; Stop 01/12/17 at 13:21 ; Status DC Morphine Sulfate 1 mg PRN Q1HR PRN IV PAIN Last administered on 01/16/17 13:18 ; Start 01/10/17 at 13:45 Ondansetron HCl (Zofran) 4 mg PRN Q6HRS PRN IV NAUESA, 1ST CHOICE Last administered on 01/16/17 00:22; Start 01/10/17 at 13:45 Cellulose 2 each STK-MED ONCE TP Last administered on 01/10/17 10:23; Start 01/10/17 at 10:23; Stop 01/10/17 at 14:25; Status DC Lorazepam (Ativan) 2 mg STK-MED ONCE .ROUTE ; Start 01/10/17 at 20:59; Stop at 21:00; Status DC Rocuronium [place] 50 mg 50 mg STK-MED ONCE .ROUTE ; Start 01/10/17 at 21:30; Stop 01/10/17 at 21:31; Status DC Cefoxitin Sodium (Mefoxin 2gm Ivpb For Omni) 100 ml @ As Directed STK-MED ONCE IV ; Start 01/10/17 at 21:45; Stop 01/10/17 at 21:46; Status DC Cellulose 1 each STK-MED ONCE .ROUTE Last administered on 01/10/17 21:47; Start 01/10/17 at 21:48; Stop 01/10/17 at 21:49; Status DC Cellulose 2 each STK-MED ONCE TP Last administered on 01/10/17 21:47; Start 01/10/17 at 21:47; Stop 01/10/17 at 22:14; Status DC Sodium Chloride 3 ml 3 ml QSHIFT PRN IV AFTER MEDS AND BLOOD DRAWS; Start at 22:30 Fentanyl Citrate 30 ml @ 0 mls/hr CONT PRN IV PROTOCOL Last administered on 07:44; Start 01/10/17 at 22:30; Stop 01/16/17 at 11:23; Status DC Propofol (Diprivan) 100 ml @ 0 mls/hr CONT PRN IV PER PROTOCOL Last administered on 01/13/17 18:39; Start 01/10/17 at 22:30; Stop 01/16/17 at 11:12 ; Status DC Chlorhexidine Gluconate 15 ml 15 ml BID MM Last administered on 01/15/17 20:49 ; Start 01/11/17 at 09:00; Stop 01/16/17 at 11:22; Status DC Sodium Chloride 1,000 ml @ 1,000 mls/hr 1X ONCE IV Last administered on 02:30; Start 01/11/17 at 02:30; Stop 01/11/17 at 03:29; Status DC Levothyroxine Sodium 25 mcg/ Sodium Chloride 5 ml @ 100 mls/hr DAILY IVP Last administered on 01/19/17 09:13; Start 01/11/17 at 09:00; Stop 01/19/17 at 11:49 ; Status DC Sodium Chloride (Iv Sodium Chloride 0.9% 500ml Bag) 500 ml @ 500 mls/hr 1X ONCE IV Last administered on 01/11/17 09:45; Start 01/11/17 at 09:45; Stop at 10:44; Status DC Heparin Sodium (Porcine) 5,000 unit Q8HRS SQ ; Start 01/11/17 at 14:00; Stop 01/11 at 16:45; Status DC Info 1 each 1 each PRN DAILY PRN MC SEE COMMENTS Last administered on 13:17; Start 01/11/17 at 10:15 Norepinephrine Bitartrate 8 mg/ Sodium Chloride 258 ml @ 0 mls/hr CONT PRN IV SEE I/O RECORD Last administered on 01/11/17 12:58; Start 01/11/17 at 11:15; Stop 01/16/17 at 11:22; Status DC Lactated Ringer's 500 ml @ 500 mls/hr PRN Q2HRS PRN IV HYPOTENTION; Start 01/11 at 13:15 Sodium Chloride 500 ml @ 500 mls/hr PRN Q2HR PRN IV hypotention; Start at 13:15 Sodium Acetate/ Potassium Acetate/ Potassium Phosphate/ Magnesium Sulfate/ Calcium Gluconate/ Chromium/Copper/ Manganese/Seleni/ Zn/Total Parenteral Nutrition/Amino Acids/Dextrose/ Fat Emulsion Intravenous (Potassium Phosphate/ Calcium Gluconate/ Multitrace-5 Conc/ Tpn - Tpn Flu... 1,512 ml @ 63 mls/hr TPN CONT IV Last administered on 01/11/17 21:39; Start 01/11/17 at 22:00; Stop 01/12/17 at 21:59; Status DC Info 1 each PRN DAILY PRN MC SEE COMMENTS; Start 01/11/17 at 13:45; Status UNV Cefoxitin Sodium 4 gm 4 gm STK-MED ONCE IV ; Start 01/10/17 at 12:00; Stop at 08:16; Status DC Sodium Chloride (Iv Sodium Chloride 0.9% 1000ml Bag) 1,000 ml @ 60 mls/hr [id number] IV Last administered on 01/17/17 12:21; Start 01/12/17 at 13:15; Stop 01/19/17 at 11:48; Status DC Insulin Aspart (Novolog) 0-7 UNITS TIDWMEALS SQ Last administered on 01/12/17 17:06; Start 01/12/17 at 17:00; Stop 01/13/17 at 00:28; Status DC Dextrose 12.5 gm 12.5 gm PRN Q15MIN PRN IV SEE COMMENTS; Start 01/12/17 at 13: 30 Magnesium Sulfate/ Dextrose 50 ml @ 25 mls/hr 1X ONCE IV Last administered on 01/12/17 14:16; Start 01/12/17 at 14:00; Stop 01/12/17 at 15:59; Status DC Potassium Phosphate 10 mmol/ Sodium Chloride 103.3333 ml @ 51.667 m... 1X ONCE IV Last administered on 01/12/17 14:16; Start 01/12/17 at 14:00; Stop 07/21 at 15:59; Status DC Sodium Acetate/ Potassium Acetate/ Potassium Phosphate/ Magnesium Sulfate/ Calcium Gluconate/ Chromium/Copper/ Manganese/Seleni/ Zn/Total Parenteral Nutrition/Amino Acids/Dextrose/ Fat Emulsion Intravenous (Potassium Phosphate/ Calcium Gluconate/ Multitrace-5 Conc/ Tpn - Tpn Flu... 1,512 ml @ 63 mls/hr TPN CONT IV Last administered on 01/12/17 22:09; Start 01/12/17 at 22:00; Stop 01/13/17 at 21:59; Status DC Darbepoetin Luis (Aranesp) 60 mcg [id number] SQ Last administered on 01/19/17 20 :58; Start 01/12/17 at 21:00 Insulin Aspart 0-7 UNITS Q6HRS SQ Last administered on 01/20/17 12:32; Start 01/13/17 at 00:30 Piperacillin Sod/ Tazobactam Sod 3.375 gm/Sodium Chloride 50 ml @ 100 mls/hr Q8HRS IV Last administered on 01/13/17 12:07; Start 01/13/17 at 12:00; Stop at 12:55; Status DC Sodium Acetate 70 meq/Potassium Acetate 60 meq/ Potassium Phosphate 20 mmol/ Magnesium Sulfate 15 meq/Calcium Gluconate 10 meq/ Multivitamins 10 ml/Chromium / Copper/Manganese/ Seleni/Zn 1 ml/ Insulin Human Regular 15 unit/ Total Parenteral Nutrition/Amino Acids/Dextrose/ Fat Emulsion Intravenous 1,512 ml @ 63 mls/hr TPN CONT IV Last administered on 01/13/17 22:35; Start 01/13/17 at 22:00; Stop 01/14/17 at 21:59; Status DC Piperacillin Sod/ Tazobactam Sod/ Sodium Chloride (Zosyn/Iv Sodium Chloride 0.9 % 50ml) 50 ml @ 100 mls/hr Q6HRS IV Last administered on 01/20/17 12:29; Start 01/13/17 at 18:00 Metoprolol Tartrate (Lopressor) 5 mg Q6HRS IVP Last administered on 01/18/17 17:22; Start 01/13/17 at 18:00; Stop 01/19/17 at 11:50; Status DC Dextrose (Dextrose 50%-Water Syringe) 25 gm 1X ONCE IV ; Start 01/13/17 at 16: 45; Stop 01/13/17 at 16:46; Status DC Insulin Detemir 15 units 15 units QHS SQ Last administered on 01/18/17 21:40; Start 01/14/17 at 21:00; Stop 01/19/17 at 11:14; Status DC Sodium Acetate 70 meq/Potassium Acetate 45 meq/ Potassium Phosphate 20 mmol/ Magnesium Sulfate 15 meq/Calcium Gluconate 10 meq/ Multivitamins 10 ml/Chromium / Copper/Manganese/ Seleni/Zn 1 ml/ Total Parenteral Nutrition/Amino Acids/ Dextrose/ Fat Emulsion Intravenous 1,512 ml @ 63 mls/hr TPN CONT IV Last administered on 01/14/17 21:42; Start 01/14/17 at 22:00; Stop 01/15/17 at 21:59 ; Status DC Sodium Acetate 70 meq/Potassium Acetate 45 meq/ Potassium Phosphate 20 mmol/ Magnesium Sulfate 15 meq/Calcium Gluconate 10 meq/ Multivitamins 10 ml/Chromium / Copper/Manganese/ Seleni/Zn 1 ml/ Total Parenteral Nutrition/Amino Acids/ Dextrose/ Fat Emulsion Intravenous 1,512 ml @ 63 mls/hr TPN CONT IV Last administered on 01/15/17 22:22; Start 01/15/17 at 22:00; Stop 01/16/17 at 21:59 ; Status DC Sodium Acetate 70 meq/Potassium Acetate 45 meq/ Potassium Phosphate 20 mmol/ Magnesium Sulfate 15 meq/Calcium Gluconate 10 meq/ Multivitamins 10 ml/Chromium / Copper/Manganese/ Seleni/Zn 1 ml/ Total Parenteral Nutrition/Amino Acids/ Dextrose/ Fat Emulsion Intravenous 1,512 ml @ 63 mls/hr TPN CONT IV Last administered on 01/16/17 22:28; Start 01/16/17 at 22:00; Stop 01/17/17 at 21:59 ; Status DC Sodium Acetate/ Potassium Acetate/ Potassium Phosphate/ Magnesium Sulfate/ Calcium Gluconate/ Multivitamins/ Chromium/Copper/ Manganese/Seleni/ Zn/Total Parenteral Nutrition/Amino Acids/Dextrose/ Fat Emulsion Intravenous (Potassium Phosphate/Calcium Gluconate/ Infuvite Wild... 1,512 ml @ 63 mls/hr TPN CONT IV Last administered on 01/17/17 21:51; Start 01/17/17 at 22:00; Stop 01/18/17 at 21:59; Status DC Bumetanide (Bumex) 1 mg 1X ONCE IV Last administered on 01/17/17 19:45; Start 01/17/17 at 20:00; Stop 01/17/17 at 20:01; Status DC Bumetanide 1 mg 1 mg 1X ONCE IV Last administered on 01/18/17 04:27; Start at 04:30; Stop 01/18/17 at 04:31; Status DC Sodium Acetate/ Potassium Acetate/ Potassium Phosphate/ Magnesium Sulfate/ Calcium Gluconate/ Multivitamins/ Chromium/Copper/ Manganese/Seleni/ Zn/ Potassium Chloride/Total Parenteral Nutrition/Amino Acids/Dextrose/ Fat Emulsion Intravenous (Potassium Phosphate/Calcium Glucona... 1,512 ml @ 63 mls/ hr TPN CONT IV Last administered on 01/18/17 21:30; Start 01/18/17 at 22:00; Stop 01/19/17 at 21:59; Status DC Insulin Detemir (Levemir) 10 units QHS SQ Last administered on 01/19/17 21:02 ; Start 01/19/17 at 21:00 Pantoprazole Sodium (Protonix) 40 mg DAILYAC PO Last administered on 01/20/17 09:10; Start 01/20/17 at 07:30 Levothyroxine Sodium (Synthroid) 50 mcg DAILY07 PO Last administered on 06:15; Start 01/20/17 at 07:00 Metoprolol Tartrate 25 mg 25 mg BID PO Last administered on 01/20/17 09:10; Start 01/19/17 at 21:00 Sodium Chloride 90 meq/Potassium Chloride 50 meq/ Potassium Acetate 45 meq/ Potassium Phosphate 20 mmol/ Magnesium Sulfate 15 meq/Calcium Gluconate 10 meq/ Multivitamins 10 ml/Chromium/ Copper/Manganese/ Seleni/Zn 1 ml/ Total Parenteral Nutrition/Amino Acids/Dextrose/ Fat Emulsion Intravenous 1,512 ml @ 63 mls/hr TPN CONT IV Last administered on 01/19/17 22:00; Start 01/19/17 at 22:00; Stop 01/20/17 at 21:59 Potassium Chloride (KCl Premix 20meq) 50 ml @ 50 mls/hr Q1H IV Last administered on 01/19/17 15:17; Start 01/19/17 at 14:00; Stop 01/19/17 at 15:59 ; Status DC Active Scripts Active Reported Pred Forte (Prednisolone Acetate) 1 Ml Drops.susp 1 Ml OU BID PRN Visine Allergy Relief Drop (Tetrahydrozoline Hcl/Zn Sulf) 15 Ml Drops 1 Drop OU PRN Thera Tears (Carboxymethylcellulose Sodium) 15 Ml Drops 1 Drop OU PRN Jaime-128 (Sodium Chloride) 15 Ml Drops 1 Drop OU PRN Tramadol Hcl 100 Mg Tbmp.24hr 100 Mg PO Q6H PRN Tramadol Hcl 50 Mg Tablet 50 Mg PO Q6H PRN Zyrtec (Cetirizine Hcl) 10 Mg Tablet 10 Mg PO DAILY Nasacort (Triamcinolone Acetonide) 10.8 Ml [place] 2 [place] DAILY Proair Hfa Inhaler (Albuterol Sulfate) 8.5 Gm Hfa.aer.ad 2 Puff INH QID Mucinex (Guaifenesin) 600 Mg Tablet.er 600 Mg PO Q8HRS PRN Levothyroxine Sodium 50 Mcg Tablet 50 Mcg PO DAILYAC Dyazide 37.5-25 Capsule (Triamterene/Hydrochlorothiazid) 1 Each Capsule 1 Cap PO DAILY Bystolic (Nebivolol) 5 Mg Tablet 5 Mg PO DAILY Vitals/I & O Vital Sign - Last 24 Hours 01/19/17 01/19/17 01/19/17 01/19/17 15:01 16:42 19:00 19:50 Temp 97.7 97.4 97.7 97.4 Pulse 95 103 Resp 18 B/P 115/61 128/59 Pulse Ox 95 93 O2 Delivery Nasal Cannula Nasal Cannula Nasal Cannula Nasal Cannula O2 Flow Rate 3.0 3.0 3.0 3.0 01/19/17 01/19/17 01/19/17 01/19/17 19:54 20:05 20:58 23:59 Temp 97.8 97.8 Pulse 103 99 Resp 18 B/P 128/59 118/77 Pulse Ox 94 96 O2 Delivery Nasal Cannula Nasal Cannula Nasal Cannula O2 Flow Rate 3.5 3.5 3.0 01/20/17 01/20/17 01/20/17 01/20/17 03:00 06:16 07:00 07:24 Temp 97.5 97.8 97.5 97.8 Pulse 96 107 Resp B/P 120/52 136/57 Pulse Ox 97 95 93 O2 Delivery Nasal Cannula Nasal Cannula Nasal Cannula Nasal Cannula O2 Flow Rate 3.0 3.0 3.0 3.0 01/20/17 01/20/17 01/20/17 01/20/17 07:30 09:10 09:13 10:15 Pulse 107 Resp 14 16 B/P 136/57 O2 Delivery Nasal Cannula Nasal Cannula Nasal Cannula O2 Flow Rate 2.5 2.5 2.5 01/20/17 01/20/17 11:00 11:07 Temp 97.6 97.6 Pulse 101 Resp 24 B/P 132/59 Pulse Ox 94 95 O2 Delivery Nasal Cannula Nasal Cannula O2 Flow Rate 3.0 3.0 Intake and Output 01/19/17 01/19/17 01/20/17 15:00 23:00 07:00 Intake Total 1090 ml 1931 ml Output Total 825 ml 1550 ml Balance 265 ml 381 ml DILCIA [email or web address] MD Jan 20, 2017 14:28
[2017-01-20] MEDS: TPN PER PHARMACY MC PRN (14:39)
[2017-01-20 15:00] VITALS: BP 107/62
[2017-01-20] MEDS ORDERED: DEXTROSE 70% IV SCH ×11 (22:00)
[2017-01-20] MEDS ORDERED: TOTAL PARENTERAL NUTRITION IV SCH ×11 (22:00)
[2017-01-20] MEDS ORDERED: [UNRECOGNIZED DRUG - OTHER] IV SCH ×11 (22:00)
[2017-01-20] MEDS ORDERED: AMINO ACIDS IV SCH ×11 (22:00)
[2017-01-23] MEDS ORDERED: FERR-26 PO (13:41)
[2017-01-23] MEDS ORDERED: INSU100I13 SQ (13:41)
[2017-01-23] MEDS ORDERED: INSU100C SQ (13:41)
== END 2017-01-20 18:40 | disposition short-term general hospital (02) | DRG 405 ==
LOC: 4 NORTH 20:38 → 1 WEST ICU 01-10 10:16 → 4 NORTH 01-15 16:15
PROVIDERS: ADMIT Internal Medicine; ATTEND Internal Medicine
PROC: 0DB60ZZ Excision of Stomach, Open Approach (ICD-10-PCS; 2017-01-10)
PROC: 0DB80ZZ Excision of Small Intestine, Open Approach (ICD-10-PCS; 2017-01-10)
PROC: 0D1B0Z4 Bypass Ileum to Cutaneous, Open Approach (ICD-10-PCS; 2017-01-10)
PROC: 0FB20ZX Excision of Left Lobe Liver, Open Approach, Diagnostic (ICD-10-PCS; 2017-01-10)
PROC: 30233K1 Transfusion of Nonautologous Frozen Plasma into Peripheral Vein, Percutaneous Approach (ICD-10-PCS; 2017-01-10)
PROC: 30233N1 Transfusion of Nonautologous Red Blood Cells into Peripheral Vein, Percutaneous Approach (ICD-10-PCS; 2017-01-10)
PROC: 30233R1 Transfusion of Nonautologous Platelets into Peripheral Vein, Percutaneous Approach (ICD-10-PCS; 2017-01-10)
PROC: 30233M1 Transfusion of Nonautologous Plasma Cryoprecipitate into Peripheral Vein, Percutaneous Approach (ICD-10-PCS; 2017-01-10)
PROC: 0DNW0ZZ Release Peritoneum, Open Approach (ICD-10-PCS; 2017-01-10)
PROC: 0DJ60ZZ Inspection of Stomach, Open Approach (ICD-10-PCS; 2017-01-10)
PROC: 5A1955Z Respiratory Ventilation, Greater than 96 Consecutive Hours (ICD-10-PCS; 2017-01-10)
PROC: 0DBE0ZZ Excision of Large Intestine, Open Approach (ICD-10-PCS; principal; 2017-01-10 09:00)
PROC: 0FBG0ZZ Excision of Pancreas, Open Approach (ICD-10-PCS; 2017-01-10 09:00)
PROC: 0TT10ZZ Resection of Left Kidney, Open Approach (ICD-10-PCS; 2017-01-11)
PROC: 07TP0ZZ Resection of Spleen, Open Approach (ICD-10-PCS; 2017-01-11)
PROC: 0DN80ZZ Release Small Intestine, Open Approach (ICD-10-PCS; 2017-01-11)
PROC: 0BH17EZ Insertion of Endotracheal Airway into Trachea, Via Natural or Artificial Opening (ICD-10-PCS; 2017-01-11)
DX: C25.9 Malignant neoplasm of pancreas, unspecified (principal); D65 Disseminated intravascular coagulation [defibrination syndrome]; J95.821 Acute postprocedural respiratory failure; C78.7 Secondary malignant neoplasm of liver and intrahepatic bile duct; D62 Acute posthemorrhagic anemia; D68.8 Other specified coagulation defects; E44.1 Mild protein-calorie malnutrition; E87.1 Hypo-osmolality and hyponatremia; K56.60 Unspecified intestinal obstruction; K56.7 Ileus, unspecified; N17.9 Acute kidney failure, unspecified; R65.10 Systemic inflammatory response syndrome (SIRS) of non-infectious origin without acute organ dysfunction; C67.9 Malignant neoplasm of bladder, unspecified; E03.9 Hypothyroidism, unspecified; E11.649 Type 2 diabetes mellitus with hypoglycemia without coma; I11.0 Hypertensive heart disease with heart failure; I50.9 Heart failure, unspecified; J45.909 Unspecified asthma, uncomplicated; K66.0 Peritoneal adhesions (postprocedural) (postinfection); M19.90 Unspecified osteoarthritis, unspecified site; Z80.2 Family history of malignant neoplasm of other respiratory and intrathoracic organs; Z81.1 Family history of alcohol abuse and dependence; Z82.49 Family history of ischemic heart disease and other diseases of the circulatory system; Z85.07 Personal history of malignant neoplasm of pancreas; Z87.891 Personal history of nicotine dependence
CPT/HCPCS: 36415; 36600; 71010; 71250; 74000; 78306; 80048; 80053; 81001; 82805; 82947; 82955; 83605; 83735; 83880; 84100; 84478; 85007; 85014; 85018; 85027; 85049; 85379; 85384; 85610; 85730; 86301; 86850; 86900; 86901; 86920; 86927; 87040; 87641; 88305; 88307; 88309; 88341; 88342; 94002; 94003; 94250; 94640; 94760; 96374; A9503; C9113; J0610; J0694; J0881; J1100; J1650; J1815; J2060; J2270; J2405; J2543; J2704; J3010; J3475; J3480; J3490; J7030; J7040; J7042; J7050; J7060; J7120; P9012; P9016; P9017; P9035; P9045; 97110; 97116; 97530; 97535; G0641